=== PATIENT | female | born 1955 | race African-American/Black ===

== ENCOUNTER → 2017-10-20 | Outpatient (CLI) | payer MEDICAID ==
[~2017-10-20] MED LIST: AMLO10TA82 PO; B/P med; DIAZ10TA3 PO; FAMO20TA5 PO; FLUT1DIS26 IH; HCT25T PO; HYDR-3583 PO; METO-272 PO; METO100T2 PO; QTP100T PO; SERT100T PO; TOLTA4 PO
--- NOTE | 2017-10-23 11:38 | Diagnostic Imaging Report ---
Bilateral screening mammogram 2D views with tomosynthesis. The current study was also evaluated with a Computer Aided Detection (CAD) system. INDICATION: Screening. No current complaints stated on the questionnaire. COMPARISON: 01/12/2012. FINDINGS: The breasts are composed of scattered fibroglandular densities. Scattered benign-appearing calcifications are seen. Allowing for technique and positional differences, no suspicious change is seen. IMPRESSION: No significant change. ACR BI-RADS Category 2: Benign findings. Result letter will be mailed to the patient. Note: At least 10% of breast cancer is not imaged by mammography. Dictated by: Dictated on workstation # [id number]
== END ==
LOC: RAD 10:58
PROVIDERS: ATTEND Nurse Practitioner Family
DX: Z12.31 Encounter for screening mammogram for malignant neoplasm of breast (principal)
CPT/HCPCS: 77067

== ENCOUNTER 2018-12-06 05:34 | Outpatient (CLI) | payer MEDICAID ==
[~2018-12-06] VITALS: Ht 167.6 cm; Wt 120.2 kg
[2018-12-06] MEDS ORDERED: SOLI10TA2 PO (10:11)
[2018-12-06] MEDS ORDERED: DIAZ10TA3 PO (10:11)
[2018-12-06] MEDS ORDERED: FLUT1DIS26 IH (10:11)
[2018-12-06] MEDS ORDERED: AMLO10TA7 PO (10:11)
[2018-12-06] MEDS ORDERED: PANT40TA3 PO (10:11)
[2018-12-06] MEDS ORDERED: PROP20TA5 PO (10:11)
[2018-12-06] MEDS ORDERED: SERT100T8 PO (10:11)
== END 2018-12-06 10:15 | disposition home or self-care (01) ==
LOC: PREOP 05:34
PROVIDERS: ATTEND Obstetrics & Gynecology
DX: Z01.818 Encounter for other preprocedural examination (principal)

== ENCOUNTER 2018-12-11 10:06 | Day surgery (SDC) | payer MEDICAID ==
[~2018-12-11] VITALS: Ht 167.6 cm; Wt 118.0 kg
[~2018-12-11 10:06] MED LIST changes: +AMLO10TA7 PO; +PANT40TA3 PO; +PROP20TA5 PO; +SERT100T8 PO; +SOLI10TA2 PO
--- OUTSIDE RECORDS SUMMARY | 2018-12-11 10:10 | XMS REPORT ---
Author Author ALMA ROSA JESSICA [facility] Address [address] [place] [address] Care Team Providers Care Vegetable Buncher Name Role Phone ALMA ROSA JESSICA Unavailable PROBLEMS Type Condition ICD9-CM Code [id number] Code Onset Dates Condition Status SNOMED Code Problem Post-menopausal bleeding N95.0 Active 79886082 Problem Stress incontinence of urine N39.3 Active 06806494 Problem Unspecified personality disorder F60.9 Active 70424378 Problem Anxiety disorder, unspecified F41.9 Active 597133446 Problem Anxiety F41.9 Active 45292363 Problem Unspecified episodic mood disorder F39 Active 972840498 ALLERGIES No Known Allergies ENCOUNTERS Encounter Location Date Diagnosis [place] [address] [id number] [place] [address] 72701- 2061 Nov, [place] [address] 40489- 9314 Oct, Encounter for immunization Z23 [place] [id number] [place] [address] 66824- 8728 Oct, Anxiety F41.9 [place] [id number] [place] [address] 93667- 0908 12 Oct, 2018 Post-menopausal bleeding N95.0 [facility] [id number] [place] [address] 20287- 5555 20 Sep, 2018 Unspecified episodic mood disorder F39 ; Anxiety disorder, unspecified F41.9 and Unspecified personality disorder F60.9 [place] [address] [id number] [place] [address] 82177- 9616 14 Sep, 2018 Anxiety F41.9 [place] [address] [id number] [place] [address] 99662- 3822 Aug, Anxiety F41.9 [facility] [address] [address] 9[address] Aug, Unspecified episodic mood disorder F39 ; Anxiety disorder, unspecified F41.9 and Unspecified personality disorder F60.9 [facility] [id number] [place] [address] 67821- 3327 Jul, Anxiety F41.9 [facility] [id number] [place] [address] 02779- 1792 Jun, Unspecified episodic mood disorder F39 ; Anxiety disorder, unspecified F41.9 and Unspecified personality disorder F60.9 [facility] [id number] [place] [address] 00751- 3968 Jun, Anxiety disorder, unspecified F41.9 [facility] [id number] [place] [address] 89803- 0779 May, Unspecified episodic mood disorder F39 ; Anxiety disorder, unspecified F41.9 and Unspecified personality disorder F60.9 [facility] [id number] [place] [address] 27763- 6923 May, Anxiety disorder, unspecified F41.9 [facility] [id number] [place] [address] 26090- 7406 Apr, Anxiety disorder, unspecified F41.9 [facility] [id number] [place] [address] 07861- 3283 Apr, Unspecified episodic mood disorder F39 ; Anxiety disorder, unspecified F41.9 and Unspecified personality disorder F60.9 [facility] [id number] [place] [address] 24650- 9320 March, Anxiety disorder, unspecified F41.9 [facility] [address] [place] [address] 62258- 3187 March, Unspecified episodic mood disorder F39 ; Anxiety disorder, unspecified F41.9 and Unspecified personality disorder F60.9 [facility] [address], [place] [address] 8440 March, Anxiety disorder, unspecified F41.9 [facility] [id number] [place] [address] 23907- 9344 Feb, Unspecified episodic mood disorder F39 ; Anxiety disorder, unspecified F41.9 and Unspecified personality disorder F60.9 [facility] [id number] [place] [address] 71915- 9035 Feb, Unspecified episodic mood disorder F39 ; Anxiety disorder, unspecified F41.9 and Unspecified personality disorder F60.9 [facility] [id number] [place] [address] 95738- 6541 Feb, Anxiety disorder, unspecified F41.9 [facility] [id number] [place] [address] 55519- 2026 Jan, Unspecified episodic mood disorder F39 ; Anxiety disorder, unspecified F41.9 and Unspecified personality disorder F60.9 [facility] [id number] [place] [address] 00663- 3263 Jan, Anxiety F41.9 [facility] [id number] [place] [address] 18524- 8147 Jan, Anxiety disorder, unspecified F41.9 [facility] [id number] [place] [address] 33729- 0070 Dec, Unspecified episodic mood disorder F39 ; Anxiety disorder, unspecified F41.9 and Unspecified personality disorder F60.9 [facility] [id number] [place] [address] 10721- 0424 Dec, Anxiety F41.9 [facility] [address] [place] [address] 76939- 0943 Dec, Anxiety disorder, unspecified F41.9 [facility] [address] [place] [address] 46824- 3496 Dec, Unspecified episodic mood disorder F39 ; Anxiety disorder, unspecified F41.9 and Unspecified personality disorder F60.9 [facility] [address] [address]- 8391 Nov, [facility] [id number] [place] [address] 48321- 7981 Nov, [facility] [id number] [place] [address] 46873- 5509 Nov, Unspecified episodic mood disorder F39 ; Anxiety disorder, unspecified F41.9 and Unspecified personality disorder F60.9 [place] [id number] [place] [address] 30762- 0874 Nov, Anxiety disorder, unspecified F41.9 [place] [address] [place] [address] 56530- 4782 Oct, Unspecified episodic mood disorder F39 ; Anxiety disorder, unspecified F41.9 and Unspecified personality disorder F60.9 [place] [address] [place] [address] 03315- 4514 Oct, Vaginal yeast infection B37.3 [place] [address] [place] [address] 45629- 8550 Oct, [place] [address] [place] [address] 69567- 2226 Oct, Anxiety disorder, unspecified F41.9 [facility] [address] [place] [address] 77888- 9073 Oct, Routine gynecological examination Z01.419 ; Screening for breast cancer Z12.31 and Vaginal yeast infection B37.3 [facility] [address] [place] [address] 03161- 5004 Sep, Unspecified episodic mood disorder F39 ; Anxiety disorder, unspecified F41.9 and Unspecified personality disorder F60.9 [place] [address] [place] [address] 63328- 5062 Sep, [place] [address] [place] [address] 02206- 7646 Sep, Anxiety disorder, unspecified F41.9 [place] [id number] [place] [address] 72559- 1327 Sep, Bronchitis J40 and Stress incontinence of urine N39.3 [place] [id number] [place] [address] 20490- 2769 Sep, Stress incontinence of urine N39.3 ; Bronchitis J40 and Anxiety F41.9 [place] [id number] [place] [address] 54897- 8546 Sep, [place] [id number] [place] [address] 81035- 6802 Sep, Unspecified episodic mood disorder F39 ; Anxiety disorder, unspecified F41.9 and Unspecified personality disorder F60.9 [place] [id number] [place] [address] 45685- 1751 Aug, Anxiety F41.9 ; Stress incontinence of urine N39.3 and Encounter for immunization Z23 [place] [id number] [place] [address] 08795- 4717 Aug, Anxiety disorder, unspecified F41.9 [place] [id number] [place] [address] 53067- 3221 Jul, Unspecified episodic mood disorder F39 ; Anxiety disorder, unspecified F41.9 and Unspecified personality disorder F60.9 [place] [id number] [place] [address] 27058- 2290 Jul, [place] [id number] [place] [address] 03066- 4488 Jul, Unspecified episodic mood disorder F39 ; Anxiety disorder, unspecified F41.9 and Unspecified personality disorder F60.9 [place] [id number] [place] [address] 52335- 6167 Jul, Anxiety disorder, unspecified F41.9 [facility] [address] [place] [address] 33392- 0335 Jun, Unspecified episodic mood disorder F39 ; Anxiety disorder, unspecified F41.9 and Unspecified personality disorder F60.9 [facility] [address] [place] [address] 48807- 4981 Jun, Anxiety disorder, unspecified F41.9 [facility] [id number] [place] [address] 59867- 5655 Jun, Unspecified episodic mood disorder F39 ; Anxiety disorder, unspecified F41.9 and Unspecified personality disorder F60.9 [facility] [id number] [place] [address] 62653- 1273 Jun, [place] [id number] [place] [address] 79822- 1699 May, Anxiety disorder, unspecified F41.9 [facility] [id number] [place] [address] 92530- 0565 May, Unspecified episodic mood disorder F39 ; Anxiety disorder, unspecified F41.9 and Unspecified personality disorder F60.9 [facility] [address] [place] [address] 79453- 3452 Apr, Anxiety disorder, unspecified F41.9 [facility] [address] [place] [address] 02857- 3982 March, Unspecified episodic mood disorder F39 ; Anxiety disorder, unspecified F41.9 and Unspecified personality disorder F60.9 [facility] [id number] [place] [address] 43131- 3368 March, Bronchitis J40 [facility] [address] [place] [address] 91179- 2623 March, Unspecified episodic mood disorder F39 ; Anxiety disorder, unspecified F41.9 and Unspecified personality disorder F60.9 [facility] [address], [place] [address]- 6447 Feb, [facility] [address] [place] [address] 06475- 0494 Feb, Unspecified episodic mood disorder F39 ; Anxiety disorder, unspecified F41.9 and Unspecified personality disorder F60.9 [facility] [address] [place] [address] 74389- 9890 Feb, Bronchitis J40 [facility] [address] [place] [address] 83062- 5801 Feb, Unspecified episodic mood disorder F39 ; Anxiety disorder, unspecified F41.9 and Unspecified personality disorder F60.9 [facility] [address], [place] [address]- 4869 Jan, Unspecified episodic mood disorder F39 ; Anxiety disorder, unspecified F41.9 and Unspecified personality disorder F60.9 [facility] [address] [address]- 3054 Jan, Bronchitis J40 [facility] [address] [place] [address] 17623- 3717 Jan, Unspecified episodic mood disorder F39 ; Anxiety disorder, unspecified F41.9 and Unspecified personality disorder F60.9 [facility] [address] [address]- 9390 Dec, Anxiety F41.9 [facility] [id number] [address]- 8222 Dec, Unspecified episodic mood disorder F39 ; Anxiety disorder, unspecified F41.9 and Unspecified personality disorder F60.9 [place] [address] [id number] [id number] Dec, [facility] [id number] [address]- 9854 Dec, Unspecified episodic mood disorder F39 ; Anxiety disorder, unspecified F41.9 and Unspecified personality disorder F60.9 [facility] [address], [place] [address]- 6664 Nov, [facility] [id number] [place] [address] 26864- 8912 Oct, Unspecified episodic mood disorder F39 ; Anxiety disorder, unspecified F41.9 and Unspecified personality disorder F60.9 [facility] [id number] [place] [address] 99344- 6160 Oct, [facility] [address] [place] [address] 36232 -8644 Oct, Acute upper respiratory infection, unspecified J06.9 ; Other viral agents as the cause of diseases classified elsewhere B97.89 and Cough R05 [place] [id number] [place] [address] 16034- 8064 Aug, Unspecified episodic mood disorder F39 ; Anxiety disorder, unspecified F41.9 and Unspecified personality disorder F60.9 [facility] [id number] [place] [address] 99081- 0831 Aug, [facility] [id number] [place] [address] 63650- 2979 Aug, [place] [id number] [place] [address] 22769- 5070 Aug, [facility] [id number] [place] [address] 39731- 5060 Aug, Visit for TB skin test Z11.1 [facility] [id number] [place] [address] 66300- 8901 Jul, [facility] [id number] [place] [address] 11146- 4367 Jul, [place] [id number] [place] [address] 50048- 4821 Jul, [place] [address], [place] [address]- 2704 Jul, [facility] [address], [place] [address]- 0658 Jul, [facility] [address], [place] [address]- 3395 Jul, Unspecified episodic mood disorder F39 ; Anxiety disorder, unspecified F41.9 and Unspecified personality disorder F60.9 [facility] [address], [place] [address]- 8775 Jun, [facility] [address] [place] [address] 39194- 6834 Jun, Unspecified episodic mood disorder F39 ; Anxiety disorder, unspecified F41.9 and Unspecified personality disorder F60.9 [facility] [address], [place] [address]- 6394 Jun, [facility] [address], [place] [address]- 8326 May, Unspecified episodic mood disorder F39 ; Anxiety disorder, unspecified F41.9 and Unspecified personality disorder F60.9 [facility] [address], [place] [address]- 7367 May, [facility] [address], [place] [address]- 6704 May, [facility] [address], [place] [address]- 3502 May, Edema, unspecified R60.9 [facility] [address], [place] [address]- 5611 Apr, [facility] [address], [place] [address]- 6360 Apr, Unspecified episodic mood disorder F39 ; Anxiety disorder, unspecified F41.9 and Unspecified personality disorder F60.9 [facility] [id number] [place] [address] 89121- 2489 Apr, Anxiety F41.9 [facility] [id number] [place] [address] 30047- 7082 March, Unspecified episodic mood disorder F39 ; Anxiety disorder, unspecified F41.9 and Unspecified personality disorder F60.9 [facility] [id number] [place] [address] 92977- 6983 March, Unspecified episodic mood disorder F39 ; Anxiety disorder, unspecified F41.9 and Unspecified personality disorder F60.9 [facility] [id number] [place] [address] 88701- 9708 Feb, Anxiety F41.9 [facility] [id number] [place] [address] 15330- 5821 Feb, Unspecified episodic mood disorder F39 ; Anxiety disorder, unspecified F41.9 and Unspecified personality disorder F60.9 [facility] [id number] [place] [address] 55782- 7294 Jan, Unspecified episodic mood disorder F39 ; Anxiety disorder, unspecified F41.9 and Unspecified personality disorder F60.9 [facility] [address] [place] [address] 76939- 4500 Jan, Unspecified episodic mood disorder F39 ; Anxiety disorder, unspecified F41.9 and Unspecified personality disorder F60.9 [facility] [address] [place] [address] 36134- 8493 Jan, Edema, unspecified R60.9 [facility] [address] [place] [address] 93053- 4135 Dec, [facility] [address] [place] [address] 53351- 4240 Dec, [facility] [address] [place] [address] 40916- 7959 Dec, [facility] [address], [place] [address]- 6891 Dec, Unspecified episodic mood disorder F39 ; Anxiety disorder, unspecified F41.9 and Unspecified personality disorder F60.9 [facility] [address] [place] [address] 18462- 1136 Nov, [facility] [id number] [place] [address] 03043- 5673 Nov, Unspecified episodic mood disorder F39 ; Anxiety disorder, unspecified F41.9 and Unspecified personality disorder F60.9 [place] [id number] [place] [address] 18994- 4724 Oct, Unspecified episodic mood disorder F39 ; Anxiety disorder, unspecified F41.9 and Unspecified personality disorder F60.9 [place] [id number] [place] [address] 98899- 7312 Oct, Unspecified episodic mood disorder F39 ; Anxiety disorder, unspecified F41.9 and Unspecified personality disorder F60.9 [place] [id number] [place] [address] 70626- 9083 Sep, Unspecified episodic mood disorder F39 ; Anxiety disorder, unspecified F41.9 and Unspecified personality disorder F60.9 [place] [id number] [place] [address] 65097- 3564 Sep, Encounter for immunization Z23 [facility] [id number] [place] [address] 06806- 3149 10 Sep, 2015 Edema of left lower extremity R60.0 [place] [id number] [place] [address] 79198- 8398 Aug, Unspecified episodic mood disorder F39 ; Anxiety disorder, unspecified F41.9 and Unspecified personality disorder F60.9 [facility] [id number] [place] [address] 50478- 8548 Aug, [facility] [address] [place] [address]- 8646 Aug, Edema of left lower extremity R60.0 [facility] [id number] [place] [address] 43602- 5454 Aug, [facility] [id number] [place] [address] 32751- 5683 Aug, Unspecified episodic mood disorder F39 ; Anxiety disorder, unspecified F41.9 and Unspecified personality disorder F60.9 [facility] [id number] [place] [address] 12409- 8528 Jul, Unspecified episodic mood disorder 296.90 ; Anxiety disorder , unspecified 300.00 and Unspecified personality disorder 301.9 [facility] [id number] [place] [address] 40544- 1691 Jul, Unspecified episodic mood disorder 296.90 ; Anxiety disorder , unspecified 300.00 and Unspecified personality disorder 301.9 [facility] [id number] [place] [address] 44039- 1984 Jul, [facility] [id number] [place] [address] 59614- 6256 Jun, Unspecified episodic mood disorder 296.90 ; Anxiety disorder , unspecified 300.00 and Unspecified personality disorder 301.9 [facility] [address] [place] [address] 96736- 4574 May, Unspecified episodic mood disorder 296.90 ; Anxiety disorder , unspecified 300.00 and Unspecified personality disorder 301.9 [facility] [address] [address]- 5288 May, Anxiety disorder, unspecified 300.00 [facility] [id number] [place] [address] 66532- 0478 May, Anxiety disorder, unspecified 300.00 and Edema 782.3 [facility] [id number] [place] [address] 40713- 6105 May, Unspecified episodic mood disorder 296.90 ; Anxiety disorder , unspecified 300.00 and Unspecified personality disorder 301.9 [facility] [address] [address]- 0867 Apr, [facility] [address] [place] [address]- 2354 Apr, Unspecified episodic mood disorder 296.90 ; Anxiety disorder , unspecified 300.00 and Personality disorder, unspecified 301.9 [facility] [address] [place] [address] 99112- 9081 Apr, Unspecified episodic mood disorder 296.90 ; Anxiety disorder , unspecified 300.00 and Unspecified personality disorder 301.9 [facility] [address] [place] [address] 07958- 2564 March, [facility] [id number] [place] [address] 63739- 2839 March, Unspecified episodic mood disorder 296.90 ; Anxiety disorder , unspecified 300.00 and Unspecified personality disorder 301.9 [facility] [address] [place] [address]- 3718 March, Unspecified episodic mood disorder 296.90 ; Anxiety disorder 300.00 and Unspecified personality disorder 301.9 [facility] [address] [place] [address]- 6884 March, [facility] [address] [address]- 7505 March, [facility] [address], [place] [address]- 9173 Feb, [facility] [id number] [place] [address] 30438- 7022 Feb, [facility] [address], [place] [address]- 6776 Feb, [facility] [address] [place] [address] 93768- 7554 Jan, [facility] [place] [facility] [address] [id number] [place] [address]- 4657 Jan, [facility] [place] [facility] [address] [id number] [place] [address]- 5178 Jan, [facility] [place] [facility] [address] [id number] [place] [address]- 2695 Jan, [facility] [place] [facility] [address] [id number] [place] [address]- 2739 Jan, [facility] [place] [facility] [address] [id number] [place] [address]- 1230 Jan, [facility] [place] [facility] [address] [id number] [place] [id number] Jan, [facility] [place] [facility] [address] [facility] [id number] [place] [address] Jan, [facility] [place] [facility] [address] [id number] [place] [address] Jan, [facility] [place] [facility] [address] [facility] [id number] [place] [address] Jan, [facility] [place] [facility] [address] [id number] [place] [address] Jan, [facility] [place] [facility] [address] [facility] [id number] [place] [address] Jan, [facility] [place] [facility] [address] [id number] [place] [address] Jan, 2014 [facility] [place] [facility] [address] [id number] [place] [address] Jan, [facility] [place] [facility] [address] [id number] [place] [address] Jan, 2014 [facility] [place] [facility] [address] [facility] [id number] [place] [address] Jan, [facility] [place] [facility] [address] [id number] [place] [address] Dec, 2014 [facility] [address] [id number] [place] [address] Dec, 2014 [facility] [place] [facility] [address] [id number] [place] [address] Dec, 2014 [facility] [place] [facility] [address] [facility] [id number] [place] [address] Dec, [facility] [place] [facility] [address] [id number] [place] [address]- 9341 Nov, [facility] [address] [id number] [place] [address]14 Nov, [facility] [address] [id number] [place] [address] 9979 Nov, [facility] [address] [facility] [id number], [place] [address]22 Nov, [facility] [address] [id number] [place] [address] 2200 Oct, [facility] [address] [id number] [place] [address]- 2515 Oct, [facility] [place] [facility] [address] [facility] [id number] [place] [address]- 0355 Oct, [facility] [address] [id number] [place] [address]- 2644 Oct, [facility] [place] [facility] [address] [id number], [place] [address] Oct, [facility] [place] [facility] [address] [id number] [place] [address]- 8556 Oct, [facility] [place] [facility] [address] [id number] [place] [address]- 6581 Oct, [facility] [place] [facility] [address] [facility] [id number] [place] [address]- 2856 Oct, [facility] [place] [facility] [address] [id number] [place] [address]- 4692 Oct, [facility] [place] [facility] [address] [id number] [place] [address]- 3087 Oct, [facility] [place] [facility] [address] [id number] [place] [address]- 4886 Oct, [facility] [place] [facility] [address] [id number] [place] [address]- 5555 Oct, [facility] [place] [facility] [address] [id number] [place] [address]- 2853 Oct, [facility] [place] [facility] [address] [id number] [place] [address]- 8494 Oct, [facility] [place] [facility] [address] [id number] [place] [address]- 9728 Oct, [facility] [place] [facility] [address] [id number] [place] [address]- 9986 Oct, [facility] [place] [facility] [address] [id number] [place] [address]- 8301 Sep, [facility] [place] [facility] [address] [id number] [place] [address]- 4848 Sep, [facility] [place] [facility] [address] [id number] [place] [address]- 2578 Sep, [facility] [place] [facility] [address] [id number] [place] [address]- 7739 Sep, [facility] [place] [facility] [address] [id number] [place] [address]- 6997 Sep, [facility] [place] [facility] [address] [id number] [place] [address]- 0565 Sep, [facility] [place] [facility] [address] [id number] [place] [address]- 2822 Sep, [facility] [place] [facility] [address] [id number] [place] [address] 1925 Sep, [facility] [place] [facility] [address] [id number] [place] [address]- 0400 Sep, [facility] [place] [facility] [address] [id number] [place] [address]- 5037 Sep, [facility] [place] [facility] [address] [id number] [place] [address]- 4387 Aug, [facility] [place] [facility] [address] [id number] [place] [address]- 7639 30 Aug, 2014 [facility] [place] [facility] [address] [id number] [place] [address]- 2379 Aug, [facility] [place] [facility] [address] [id number] [place] [address]- 4775 Aug, [facility] [place] [facility] [address] [id number] [place] [address]- 6492 Aug, [facility] [place] [facility] [address] [id number] [place] [address]- 2829 Aug, [facility] [place] [facility] [address] [id number] [place] [address]- 1141 Aug, [facility] [place] [facility] [address] [id number] [place] [address]- 1521 Aug, [facility] [place] [facility] [address] [id number], [place] [address]- 6831 29 Jul, 2014 [facility] [place] [facility] [address] [id number], [place] [address]- 5[address] 29 Jul, 2013 [facility] [place] [facility] [address] [id number] [place] [address]- 0546 05 Sep2013 [facility] [place] [facility] [address] [id number], [place] [address]- 4092 05 Jul, 2014 [facility] [place] [facility] [address] [id number], [place] [address]- 4001 05 Jul, 2014 [facility] [place] [facility] [address] [id number] [place] [address]- 8894 Jul, [facility] [place] [facility] [address] [id number] [place] [address]- 2104 Jun, [facility] [place] [facility] [address] [id number] [place] [address]- 3434 Jun, [facility] [place] [facility] [address] [id number] [place] [address]- 8689 May, [facility] [place] [facility] [address] [id number] [place] [address]- 1845 May, [facility] [place] [facility] [address] [id number] [place] May, [facility] [place] [facility] [address] [id number] [place] [address]- 5752 May, [facility] [place] [facility] [address] [id number] [place] [address]- 4958 May, [facility] [place] [facility] [address] [id number] [place] [address]- 7282 May, [facility] [place] [facility] [address] [id number] [place] [address]- 8275 May, [facility] [place] [facility] [address] [id number] [place] [address]- 4166 May, [facility] [place] [facility] [address] [id number] [place] [address]- 5895 Apr, [facility] [place] [facility] [address] [id number] [place] [address]- 0644 Apr, [facility] [place] [facility] [address] [id number] [place] [address]- 2997 March, [facility] [place] [facility] [address] [id number] [place] [address]- 5232 March, [facility] [place] [facility] [address] [id number] [place] [address]- 3265 Feb, [facility] [place] [facility] [address] [id number] [place] [address]- 0403 Feb, [facility] [place] [facility] [address] [id number] [place] [address]- 7885 Feb, [facility] [place] [facility] [address] [id number] [place] [address]- 3913 Feb, [facility] [place] [facility] [address] [id number] [place] [address]- 7638 Feb, [facility] [place] [facility] [address] [id number] [place] [address]- 4316 Feb, [facility] [place] [facility] [address] [id number] [place] [address]- 7532 Feb, [facility] [place] [facility] [address] [id number] [place] [address]- 6088 Feb, [facility] [place] [facility] [address] [id number] [place] [address]- 5421 Feb, [facility] [place] [facility] [address] [id number] [place] [address]- 4054 Feb, [facility] [place] [facility] [address] [id number] [place] [address]- 9644 Jan, [facility] [place] [facility] [address] [id number] [place] [address]- 7907 Jan, [facility] [place] [facility] [address] [id number] [place] [address]- 5340 Jan, [facility] [place] [facility] [address] [id number] [place] [address]- 4308 Jan, [facility] [place] [facility] [address] [id number] [place] [address]- 4565 Jan, [facility] [place] [facility] [address] [id number] [place] [address]- 5260 Dec, [facility] [place] [facility] [address] [id number] [place] [address]- 6327 Dec, [facility] [address] [id number] [place] [address]- 5736 Dec, [facility] [place] [facility] [address] [id number] [place] [address]- 3389 Dec, [facility] [place] [facility] [address] [id number] [place] [address]- 1720 Dec, [facility] [place] [facility] [address] [id number] [place] [address]- 8389 Dec, [facility] [place] [facility] [address] [id number] [place] [address]- 1143 Nov, [facility] [place] [facility] [address] [id number] [place] [address]- 6939 Nov, [facility] [place] [facility] [address] [id number] [place] [address]- 1253 Nov, [facility] [place] [facility] [address] [id number] [place] [address]- 2458 Nov, [facility] [place] [facility] [address] [id number] [place] [address]- 9801 Nov, [facility] [place] [facility] [address] [id number] [place] [address]- 3316 Nov, [facility] [place] [facility] [address] [id number] [place] [address]- 4146 Nov, [facility] [place] [facility] [address] [id number] [place] [address]- 6343 Nov, [facility] [place] [facility] [address] [id number] [place] [address]- 0153 Oct, [facility] [place] [facility] [address] [id number] [place] [address]- 5007 Oct, [facility] [place] [facility] [address] [id number] [place] [address]- 1690 Oct, [facility] [place] [facility] [address] [id number] [place] [address]- 0350 06 Oct, 2013 [facility] [place] [facility] [address] [id number] [place] [address]- 0958 Oct, [facility] [place] [facility] [address] [id number] [place] [address]- 5902 05 Oct, 2013 [facility] [place] [facility] [address] [id number] [place] [address]- 2350 Oct, [facility] [place] [facility] [address] [id number] [place] [address]- 0819 Oct, [facility] [place] [facility] [address] [id number] [place] [address]- 3224 Sep, [facility] [place] [facility] [address] [id number] [place] [address]- 0127 Sep, [facility] [place] [facility] [address] [id number] [place] [address]- 6580 Sep, [facility] [place] [facility] [address] [id number] [place] [address]- 4643 Sep, [facility] [place] [facility] [address] [id number] [place] [address]- 2981 Sep, [facility] [place] [facility] [address] [id number] [place] [address]- 3780 Sep, [facility] [place] [facility] [address] [id number] [place] [address]- 6614 Sep, [facility] [place] [facility] [address] [id number] [place] [address]- 0060 Sep, [facility] [place] [facility] [address] [id number] [place] [address]- 2477 10 Aug, 2013 [facility] [place] [facility] [address] [id number] [place] [address]- 3676 10 Aug, 2013 [facility] [place] [facility] [address] [id number] [place] [address]- 5068 Aug, [facility] [place] [facility] [address] [id number] [place] [address]- 8931 Jul, [facility] [place] [facility] [address] [id number] [place] [address]- 5936 Jun, [facility] [place] [facility] [address] [id number] [place] [address]- 2908 Jun, [facility] [place] [facility] [address] [id number] [place] [address]- 0427 Jun, [facility] [place] [facility] [address] [id number] [place] [address]- 1234 Jun, [facility] [place] [facility] [address] [id number] [place] [address]- 8311 Jun, [facility] [place] [facility] [address] [id number] [place] [address]- 3123 May, [facility] [place] [facility] [address] [id number] [place] [address]- 4859 May, [facility] [place] [facility] [address] [id number] [place] [address]- 9889 Apr, [facility] [place] [facility] [address] [id number] [place] [address]- 0168 Apr, [facility] [place] [facility] [address] [id number] [place] [address]- 0587 March, [facility] [place] [facility] [address] [id number] [place] [address]- 3813 March, [facility] [place] [facility] [address] [id number] [place] [address]- 9798 March, [facility] [place] [facility] [address] [id number] [place] [address]- 1152 March, [facility] [place] [facility] [address] [id number] [place] [address]- 3278 March, [facility] [place] [facility] [address] [id number] [place] [address]- 7775 Feb, [facility] [address] [id number] [place] [address]- 2376 Feb, [facility] [place] [facility] [address] [id number] [place] [address]- 2846 Feb, [facility] [address] [id number] [place] [address]- 5016 Jan, [facility] [address] [id number] [place] [address]- 7422 Dec, [facility] [address] [id number] [place] [address]- 3056 Dec, [facility] [address] [id number] [place] [address]- 0893 Dec, [facility] [address] [id number] [place] [address]- 1086 Dec, [facility] [address] [id number] [place] [address]- 2276 Nov, [facility] [address] [id number] [place] [address]- 5262 Nov, [facility] [address] [id number] [place] [address]- 2919 Nov, [facility] [address] [id number] [place] [address]- 0888 Nov, [facility] [address] [id number] [place] [address]- 7871 Oct, [facility] [place] [facility] [address] [id number] [place] [address]- 5956 Oct, [facility] [place] [facility] [address] [id number] [place] [address]- 2546 Oct, [facility] [address] [id number] [place] [address]- 5707 Oct, [facility] [place] [facility] [address] [id number] [place] [address]- 9015 14 Sep, 2012 [facility] [place] [facility] [address] [id number] [place] [address]- 6166 14 Sep, 2012 [facility] [place] [facility] [address] [id number] [place] [address]- 8401 13 Sep, 2012 [facility] [place] [facility] [address] [id number] [place] [address]- 2283 13 Sep, 2012 [facility] [place] [facility] [address] [id number] [place] [address]- 7492 Sep, [facility] [place] [facility] [address] [id number] [place] [address]- 8563 Sep, [facility] [place] [facility] [address] [id number] [place] [address]- 6301 Aug, [facility] [place] [facility] [address] [id number] [place] [address]- 8525 Aug, [facility] [place] [facility] [address] [id number] [place] [address]- 2825 Aug, [facility] [place] [facility] [address] [id number], [place] [address]- 5234 Jul, [facility] [place] [facility] [address] [id number], [place] [address]- 1618 Jul, [facility] [place] [facility] [address] [id number], [place] [address]- 1268 16 Jun, 2012 [facility] [place] [facility] [address] [id number] [place] [address]- 0652 30 May, 2012 [facility] [place] [facility] [address] [id number], [place] [address]- 4425 May, [facility] [place] [facility] [address] [id number] [place] [address]- 7113 Apr, [facility] [place] [facility] [address] [facility] [id number] [place] [address]- 9080 06 Apr, 2012 [facility] [place] [facility] [address] [id number] [place] [address]- 1693 March, [facility] [place] [facility] [address] [facility] [id number] [place] [address]- 2946 March, [facility] [place] [facility] [address] [facility] [id number] [place] [address]- 9966 Feb, [facility] [place] [facility] [address] [facility] [id number] [place] [address]- 2675 16 Feb, 2012 [facility] [place] [facility] [address] [id number] [place] [address]- 2662 Feb, [facility] [place] [facility] [address] [facility] [id number] [place] [address]- 7546 06 Feb, 2012 [facility] [place] [facility] [id number] [address]- 0228 15 Jan, 2012 [facility] [place] [facility] [address] [facility] [id number] [place] [address]- 8794 Jan, [facility] [place] [facility] [id number] [address]- 6743 29 Dec, 2011 [facility] [place] [facility] [id number] [address]- 7095 28 Dec, 2011 [facility] [place] [facility] [id number] [address]- 3626 26 Dec, 2011 [facility] [place] [facility] [address] [facility] [id number] [place] [address]- 3041 23 Dec, 2011 [facility] [place] [facility] [address] [facility] [id number] [place] [address]- 3258 20 Dec, 2011 [facility] [place] [facility] [address] [facility] [id number] [place] [address]- 7446 15 Dec, 2011 [facility] [place] [facility] [id number] [address]- 7264 Dec, [facility] [address] [id number] [place] [address]- 6561 Dec, [facility] [place] [facility] [address] [id number] [place] [address]- 3616 Dec, [facility] [place] [facility] [address] [id number] [place] [address]- 5736 Dec, [facility] [place] [facility] [address] [id number] [place] [address]- 3180 Dec, [facility] [place] [facility] [address] [id number] [place] [address]- 9564 Dec, [facility] [place] [facility] [address] [id number] [place] [address]- 1474 Dec, [facility] [place] [facility] [address] [id number] [place] [address]- 7527 Nov, [facility] [place] [facility] [address] [id number] [place] [address]- 8860 Nov, [facility] [place] [facility] [address] [id number] [place] [address]- 8969 Nov, [facility] [place] [facility] [address] [id number] [place] [address]- 2919 Nov, [facility] [place] [facility] [address] [id number] [place] [address]- 6880 Nov, [facility] [place] [facility] [address] [id number] [place] [address]- 1613 Nov, [facility] [place] [facility] [address] [id number] [place] [address]- 8426 Oct, [facility] [place] [facility] [address] [id number] [place] [address]- 6576 Oct, [facility] [place] [facility] [address] [facility] [id number] [place] [address] Sep, [facility] [place] [facility] [address] [id number] [place] [address] 29 Sep, 2011 [facility] [address] [id number] [place] [address] Sep, [facility] [address] [id number] [place] [address] Sep, [facility] [address] [facility] [id number] [place] [address] Sep, [facility] [address] [id number] [place] [address] March, [facility] [address] [facility] [id number] [place] [address], [place] [address] Oct, [facility] [address] [facility] [id number] [place] [address] Oct, [facility] [address] [id number] [address] Oct, [facility] [address] [facility] [id number] [place] [address] 24 Sep, 2010 [facility] [id number] [address] Sep, [facility] [address] [facility] [id number] [place] [address] 17 Sep, 2010 [facility] [address] [facility] [id number] [place] [address] 16 Sep, 2010 [facility] [address] [facility] [id number] [place] [address] Aug, [facility] [address] [facility] [id number] [place] [address] Oct, [facility] [address] [facility] [id number] [place] [address] Oct, [facility] [address] [facility] [id number] [address] 16 May, 2009 IMMUNIZATIONS No Known Immunizations SOCIAL HISTORY Never Assessed REASON FOR VISIT pt states she has been on her period nonstop for 2 months and is very heavy at times- ASHLEE Waldron PLAN OF CARE Activity Details Follow Up prn Reason: VITAL SIGNS Height 68 in 2018-10-17 Weight 261.5 lbs 2018-10-17 Temperature 97.7 degrees Fahrenheit 2018-10-17 Heart Rate 78 bpm 2018-10-17 Respiratory Rate 18 2018-10-17 BMI 39.76 kg/m2 2018-10-17 Blood pressure systolic 132 mmHg 2018-10-17 Blood pressure diastolic 78 mmHg 2018-10-17 MEDICATIONS Medication Instructions Dosage Frequency Start Date End Date Duration Status Propranolol HCl 20 MG TAKE ONE TABLET BY MOUTH TWICE DAILY 90 Active VESIcare 10 mg Orally Once a day 1 tablet 24h 90 Active Amlodipine Besylate 10 mg TAKE ONE TABLET BY MOUTH DAILY 90 Active Valium 10 MG Orally Twice a day 1 tablet 12h 30 Jan, 2015 28 days Active Sertraline HCl 100 MG TAKE TWO TABLETS BY MOUTH ONCE DAILY 90 Active Triamcinolone Acetonide 0.1 % Externally Twice a day 1 application to affected area 12h Sep, Active Advair Diskus 250-50 MCG/DOSE INHALE ONE PUFF BY MOUTH TWICE DAILY 30 Active Pantoprazole Sodium 40 MG TAKE ONE TABLET BY MOUTH ONCE DAILY 90 Active Diflucan 150 MG 1 tablet Oct, 1 dose Active Medical Compression Stockings N/A as directed Aug, Active RESULTS Name Result Date Reference Range Ultrasound : PELVIC COMPLETE (IN-HOUSE) 2018-10-17 PROCEDURES Procedure Date Ordered Result Body Site US EXAM, PELVIC, COMPLETE Oct 17, 2018 INSTRUCTIONS MEDICATIONS ADMINISTERED No Known Medications MEDICAL (GENERAL) HISTORY Type Description Date Medical History hypertension Medical History panic attacks Surgical History cholecystectomy 2009 Hospitalization History surgery
--- OUTSIDE RECORDS SUMMARY | 2018-12-11 10:11 | XMS REPORT ---
Author Author LEIDA ANDINO Organization [facility] Address [address] [place] [address] Care Team Providers Care Lining Marker Name Role Phone LEIDA ANDINO Unavailable PROBLEMS Type Condition ICD9-CM Code [id number] Code Onset Dates Condition Status SNOMED Code Problem Post-menopausal bleeding N95.0 Active 51409713 Problem Stress incontinence of urine N39.3 Active 14074982 Problem Unspecified personality disorder F60.9 Active 35605629 Problem Anxiety disorder, unspecified F41.9 Active 399807309 Problem Anxiety F41.9 Active 46039202 Problem Unspecified episodic mood disorder F39 Active [id number] ALLERGIES No Information ENCOUNTERS Encounter Location Date Diagnosis [place] [id number] [place] [address] 22752- 0405 Nov, [place] [id number] [place] [address] 40169- 6327 Oct, Encounter for immunization Z23 [place] [id number] [place] [address] 27838- 5723 Oct, Anxiety F41.9 [place] [id number] [place] [address] 05865- 4903 Oct, Post-menopausal bleeding N95.0 [place] [id number] [place] [address] 37982- 3977 Sep, Unspecified episodic mood disorder F39 ; Anxiety disorder, unspecified F41.9 and Unspecified personality disorder F60.9 [place] [id number] [place] [address] 39958- 0692 14 Sep, 2018 Anxiety F41.9 [place] [id number] [place] [address] 38987- 0540 Aug, [address]41.[address] [facility] [address] [address] 2261 Aug, Unspecified episodic mood disorder F39 ; Anxiety disorder, unspecified F41.9 and Unspecified personality disorder F60.9 [facility] [address], [place] [address] 1846 Jul, Anxiety F41.9 [facility] [id number] [place] [address] 63667- 2701 Jun, Unspecified episodic mood disorder F39 ; Anxiety disorder, unspecified F41.9 and Unspecified personality disorder F60.9 [facility] [id number] [place] [address] 09050- 9266 Jun, Anxiety disorder, unspecified F41.9 [facility] [id number] [place] [address] 33547- 3436 May, Unspecified episodic mood disorder F39 ; Anxiety disorder, unspecified F41.9 and Unspecified personality disorder F60.9 [facility] [id number] [place] [address] 15684- 6672 May, Anxiety disorder, unspecified F41.9 [facility] [id number] [place] [address] 95434- 4508 Apr, Anxiety disorder, unspecified F41.9 [facility] [id number] [place] [address] 35135- 5314 Apr, Unspecified episodic mood disorder F39 ; Anxiety disorder, unspecified F41.9 and Unspecified personality disorder F60.9 [facility] [id number] [place] [address] 71922- 1647 March, Anxiety disorder, unspecified F41.9 [facility] [address] [address] 1709 March, Unspecified episodic mood disorder F39 ; Anxiety disorder, unspecified F41.9 and Unspecified personality disorder F60.9 [facility] [address], [place] [address]- 4787 March, Anxiety disorder, unspecified F41.9 [facility] [id number] [place] [address] 08973- 3353 Feb, Unspecified episodic mood disorder F39 ; Anxiety disorder, unspecified F41.9 and Unspecified personality disorder F60.9 [facility] [id number] [place] [address] 83391- 2798 Feb, Unspecified episodic mood disorder F39 ; Anxiety disorder, unspecified F41.9 and Unspecified personality disorder F60.9 [facility] [id number] [place] [address] 81727- 2113 Feb, Anxiety disorder, unspecified F41.9 [facility] [id number] [place] [address] 05434- 9901 Jan, Unspecified episodic mood disorder F39 ; Anxiety disorder, unspecified F41.9 and Unspecified personality disorder F60.9 [facility] [id number] [place] [address] 72221- 7336 Jan, Anxiety F41.9 [facility] [id number] [place] [address] 37605- 0453 Jan, Anxiety disorder, unspecified F41.9 [facility] [id number] [place] [address] 17186- 6082 Dec, Unspecified episodic mood disorder F39 ; Anxiety disorder, unspecified F41.9 and Unspecified personality disorder F60.9 [facility] [id number] [place] [address] 13264- 9011 Dec, Anxiety F41.9 [facility] [id number] [place] [address] 73062- 3214 Dec, Anxiety disorder, unspecified F41.9 [facility] [address] [place] [address] 86110- 6479 Dec, Unspecified episodic mood disorder F39 ; Anxiety disorder, unspecified F41.9 and Unspecified personality disorder F60.9 [facility] [address] [place] [address] 94438- 3387 Nov, [facility] [id number] [place] [address] 16858- 6882 Nov, [facility] [id number] [place] [address] 31356- 8556 Nov, Unspecified episodic mood disorder F39 ; Anxiety disorder, unspecified F41.9 and Unspecified personality disorder F60.9 [facility] [id number] [place] [address] 93198- 5555 Nov, Anxiety disorder, unspecified F41.9 [place] [id number] [place] [address] 42864- 2922 Oct, Unspecified episodic mood disorder F39 ; Anxiety disorder, unspecified F41.9 and Unspecified personality disorder F60.9 [facility] [id number] [place] [address] 54342- 1506 Oct, Vaginal yeast infection B37.3 [facility] [id number] [place] [address] 21755- 6411 Oct, [place] [id number] [place] [address] 62375- 4891 Oct, Anxiety disorder, unspecified F41.9 [facility] [address] [place] [address] 81589- 3259 Oct, Routine gynecological examination Z01.419 ; Screening for breast cancer Z12.31 and Vaginal yeast infection B37.3 [facility] [id number] [place] [address] 95613- 3977 Sep, Unspecified episodic mood disorder F39 ; Anxiety disorder, unspecified F41.9 and Unspecified personality disorder F60.9 [place] [id number] [place] [address] 58690- 9146 Sep, [place] [id number] [place] [address] 78664- 8241 Sep, Anxiety disorder, unspecified F41.9 [place] [id number] [place] [address] 64157- 5716 Sep, Bronchitis J40 and Stress incontinence of urine N39.3 [place] [address] 44720- 5002 Sep, Stress incontinence of urine N39.3 ; Bronchitis J40 and Anxiety F41.9 [facility] [id number] [place] [address] 46306- 0673 Sep, [place] [id number] [place] [address] 44568- 2993 Sep, Unspecified episodic mood disorder F39 ; Anxiety disorder, unspecified F41.9 and Unspecified personality disorder F60.9 [place] [id number] [place] [address] 82309- 9112 Aug, Anxiety F41.9 ; Stress incontinence of urine N39.3 and Encounter for immunization Z23 [facility] [id number] [place] [address] 00817- 9382 Aug, Anxiety disorder, unspecified F41.9 [place] [id number] [place] [address] 14208- 3930 Jul, Unspecified episodic mood disorder F39 ; Anxiety disorder, unspecified F41.9 and Unspecified personality disorder F60.9 [place] [id number] [place] [address] 92138- 5894 Jul, [place] [id number] [place] [address] 01071- 0399 Jul, Unspecified episodic mood disorder F39 ; Anxiety disorder, unspecified F41.9 and Unspecified personality disorder F60.9 [place] [id number] [place] [address] 76484- 0254 Jul, Anxiety disorder, unspecified F41.9 [facility] [address], [place] [address]- 1311 Jun, Unspecified episodic mood disorder F39 ; Anxiety disorder, unspecified F41.9 and Unspecified personality disorder F60.9 [facility] [address], [place] [address]- 5887 Jun, Anxiety disorder, unspecified F41.9 [facility] [id number] [place] [address] 15930- 1529 Jun, Unspecified episodic mood disorder F39 ; Anxiety disorder, unspecified F41.9 and Unspecified personality disorder F60.9 [facility] [id number] [place] [address] 92503- 4468 Jun, [facility] [id number] [place] [address] 50880- 1200 May, Anxiety disorder, unspecified F41.9 [facility] [id number] [place] [address] 31227- 4308 May, Unspecified episodic mood disorder F39 ; Anxiety disorder, unspecified F41.9 and Unspecified personality disorder F60.9 [facility] [id number] [place] [address] 62157- 9225 Apr, Anxiety disorder, unspecified F41.9 [facility] [address] [place] [address]- 1874 March, Unspecified episodic mood disorder F39 ; Anxiety disorder, unspecified F41.9 and Unspecified personality disorder F60.9 [facility] [id number] [place] [address] 34636- 2874 March, Bronchitis J40 [facility] [id number] [place] [address] 57635- 9593 March, Unspecified episodic mood disorder F39 ; Anxiety disorder, unspecified F41.9 and Unspecified personality disorder F60.9 [facility] [address], [place] [address]- 1709 Feb, [facility] [address] [address]- 3559 Feb, Unspecified episodic mood disorder F39 ; Anxiety disorder, unspecified F41.9 and Unspecified personality disorder F60.9 [facility] [address] [address]- 9028 Feb, Bronchitis J40 [facility] [id number] [place] [address] 45996- 4260 Feb, Unspecified episodic mood disorder F39 ; Anxiety disorder, unspecified F41.9 and Unspecified personality disorder F60.9 [facility] [address] [address]- 3530 Jan, Unspecified episodic mood disorder F39 ; Anxiety disorder, unspecified F41.9 and Unspecified personality disorder F60.9 [facility] [address], [place] [address]- 7335 Jan, Bronchitis J40 [facility] [id number] [place] [address] 15073- 1849 Jan, Unspecified episodic mood disorder F39 ; Anxiety disorder, unspecified F41.9 and Unspecified personality disorder F60.9 [facility] [address], [place] [address]- 2539 Dec, Anxiety F41.9 [facility] [address], [place] [address]- 2389 Dec, Unspecified episodic mood disorder F39 ; Anxiety disorder, unspecified F41.9 and Unspecified personality disorder F60.9 [place] [address] [id number] [id number] Dec, [facility] [id number] [address]- 7512 Dec, Unspecified episodic mood disorder F39 ; Anxiety disorder, unspecified F41.9 and Unspecified personality disorder F60.9 [facility] [address], [place] [address]- 0582 Nov, [facility] [id number] [place] [address] 96902- 6100 Oct, Unspecified episodic mood disorder F39 ; Anxiety disorder, unspecified F41.9 and Unspecified personality disorder F60.9 [facility] [id number] [place] [address] 95643- 0984 Oct, [facility] [address], [place] [address] -3311 Oct, Acute upper respiratory infection, unspecified J06.9 ; Other viral agents as the cause of diseases classified elsewhere B97.[address] [facility] [address], [place] [address]- 5495 Aug, Unspecified episodic mood disorder F39 ; Anxiety disorder, unspecified F41.9 and Unspecified personality disorder F60.9 [facility] [address], [place] [address]- 9399 Aug, [facility] [id number] [place] [address] 10994- 5821 Aug, [facility] [address], [place] [address]- 0727 Aug, [facility] [id number] [place] [address] 56186- 0552 Aug, Visit for TB skin test Z11.1 [facility] [address], [place] [address]- 1895 Jul, [facility] [id number] [place] [address] 89049- 1748 Jul, [facility] [id number] [place] [address] 86897- 3088 Jul, [facility] [id number] [address]- 0886 Jul, [facility] [id number] [place] [address] 99805- 5322 Jul, [facility] [id number] [place] [address] 174679- 1359 Jul, Unspecified episodic mood disorder F39 ; Anxiety disorder, unspecified F41.9 and Unspecified personality disorder F60.9 [facility] [id number] [place] [address] 57096- 3404 Jun, [facility] [id number] [place] [address] 41346- 8211 Jun, Unspecified episodic mood disorder F39 ; Anxiety disorder, unspecified F41.9 and Unspecified personality disorder F60.9 [facility] [id number] [place] [address] 49818- 2820 Jun, [facility] [id number] [place] [address] 59307- 5634 May, Unspecified episodic mood disorder F39 ; Anxiety disorder, unspecified F41.9 and Unspecified personality disorder F60.9 [facility] [id number] [place] [address] 92092- 7599 May, [facility] [id number] [place] [address] 56481- 3627 May, [facility] [id number] [place] [address] 14348- 4378 May, Edema, unspecified R60.9 [facility] [address], [place] [address]- 9545 Apr, [facility] [id number] [place] [address] 21178- 0278 Apr, Unspecified episodic mood disorder F39 ; Anxiety disorder, unspecified F41.9 and Unspecified personality disorder F60.9 [facility] [id number] [place] [address] 42360- 2484 Apr, Anxiety F41.9 [facility] [address] [place] [address] 63748- 7593 March, Unspecified episodic mood disorder F39 ; Anxiety disorder, unspecified F41.9 and Unspecified personality disorder F60.9 [facility] [address] [place] [address] 75235- 4757 March, Unspecified episodic mood disorder F39 ; Anxiety disorder, unspecified F41.9 and Unspecified personality disorder F60.9 [facility] [id number] [place] [address] 49303- 3142 Feb, Anxiety F41.9 [facility] [id number] [place] [address] 15041- 5990 Feb, Unspecified episodic mood disorder F39 ; Anxiety disorder, unspecified F41.9 and Unspecified personality disorder F60.9 [facility] [id number] [place] [address] 65196- 2263 Jan, Unspecified episodic mood disorder F39 ; Anxiety disorder, unspecified F41.9 and Unspecified personality disorder F60.9 [facility] [address] [place] [address] 53525- 9131 Jan, Unspecified episodic mood disorder F39 ; Anxiety disorder, unspecified F41.9 and Unspecified personality disorder F60.9 [facility] [id number] [place] [address] 35085- 3449 Jan, Edema, unspecified R60.9 [facility] [address], [place] [address]- 1503 Dec, [facility] [id number] [place] [address] 84197- 2745 Dec, [facility] [address], [place] [address]- 8216 Dec, [facility] [id number], [place] [address]- 1399 Dec, Unspecified episodic mood disorder F39 ; Anxiety disorder, unspecified F41.9 and Unspecified personality disorder F60.9 [facility] [address], [place] [address]- 7835 Nov, [facility] [id number] [place] [address] 58650- 8256 Nov, Unspecified episodic mood disorder F39 ; Anxiety disorder, unspecified F41.9 and Unspecified personality disorder F60.9 [facility] [id number] [place] [address] 51263- 2243 Oct, Unspecified episodic mood disorder F39 ; Anxiety disorder, unspecified F41.9 and Unspecified personality disorder F60.9 [place] [id number] [place] [address] 58715- 1257 Oct, Unspecified episodic mood disorder F39 ; Anxiety disorder, unspecified F41.9 and Unspecified personality disorder F60.9 [facility] [address] [place] [address] 63019- 2047 Sep, Unspecified episodic mood disorder F39 ; Anxiety disorder, unspecified F41.9 and Unspecified personality disorder F60.9 [facility] [address], [place] [address]- 0444 Sep, Encounter for immunization Z23 [facility] [id number] [place] [address] 89297- 3484 Sep, Edema of left lower extremity R60.0 [facility] [id number] [place] [address] 02884- 2897 Aug, Unspecified episodic mood disorder F39 ; Anxiety disorder, unspecified F41.9 and Unspecified personality disorder F60.9 [facility] [address] [address]- 8444 Aug, [facility] [id number] [place] [address] 84535- 1039 Aug, Edema of left lower extremity R60.0 [facility] [id number] [place] [address] 26327- 8544 Aug, [facility] [id number] [place] [address] 620137- 1911 Aug, Unspecified episodic mood disorder F39 ; Anxiety disorder, unspecified F41.9 and Unspecified personality disorder F60.9 [facility] [id number] [place] [address] 53562- 3306 Jul, Unspecified episodic mood disorder 296.90 ; Anxiety disorder , unspecified 300.00 and Unspecified personality disorder 301.9 [facility] [id number] [place] [address] 89507- 1561 Jul, Unspecified episodic mood disorder 296.90 ; Anxiety disorder , unspecified 300.00 and Unspecified personality disorder 301.9 [facility] [id number] [place] [address] 34253- 5245 Jul, [facility] [id number] [place] [address] 72693- 9526 Jun, Unspecified episodic mood disorder 296.90 ; Anxiety disorder , unspecified 300.00 and Unspecified personality disorder 301.9 [facility] [id number] [place] [address] 58203- 7350 May, Unspecified episodic mood disorder 296.90 ; Anxiety disorder , unspecified 300.00 and Unspecified personality disorder 301.9 [facility] [address], [place] [address]- 7933 May, Anxiety disorder, unspecified 300.00 [facility] [id number] [place] [address] 52999- 7226 May, Anxiety disorder, unspecified 300.[address] [facility] [id number] [place] [address] 61670- 5717 May, Unspecified episodic mood disorder 296.90 ; Anxiety disorder , unspecified 300.00 and Unspecified personality disorder 301.9 [facility] [address] [address]- 6240 Apr, [facility] [address] [address]- 7031 Apr, Unspecified episodic mood disorder 296.90 ; Anxiety disorder , unspecified 300.00 and Personality disorder, unspecified 301.9 [facility] [id number] [address]- 7434 Apr, Unspecified episodic mood disorder 296.90 ; Anxiety disorder , unspecified 300.00 and Unspecified personality disorder 301.9 [facility] [address], [place] [address]- 9613 March, [facility] [id number] [address]- 2590 March, Unspecified episodic mood disorder 296.90 ; Anxiety disorder , unspecified 300.00 and Unspecified personality disorder 301.9 [facility] [address], [place] [address]- 5434 March, Unspecified episodic mood disorder 296.90 ; Anxiety disorder 300.00 and Unspecified personality disorder 301.9 [facility] [address], [place] [address]- 9822 March, [facility] [address] [address]- 5628 March, [facility] [address] [address]- 8028 Feb, [facility] [address] [address] 0598 Feb, [facility] [address] [address] 0063 Feb, [facility] [id number] [address] 1489 Jan, [facility] [id number] [place] [address]- 2546 Jan, [facility] [place] [facility] [address] [id number] [place] [address]- 9184 Jan, [facility] [place] [facility] [address] [facility] [id number] [place] [address]- 2546 Jan, [facility] [place] [facility] [address] [facility] [id number] [place] [address]- 6076 Jan, [facility] [place] [facility] [address] [facility] [id number] [place] [address] Jan, [facility] [place] [facility] [address] [facility] [id number] [place] [id number] Jan, [facility] [place] [facility] [address] [facility] [id number] [place] [address] Jan, [facility] [place] [facility] [address] [facility] [id number] [place] [address] Jan, [facility] [place] [facility] [address] [facility] [id number] [place] [address]- 1788 Jan, [facility] [place] [facility] [address] [facility] [id number] [place] [address] Jan, 2014 [facility] [place] [facility] [address] [facility] [id number] [place] [address] 9487 Jan, [facility] [place] [facility] [address] [id number] [place] [address] 4497 Jan, [facility] [place] [facility] [address] [facility] [id number] [place] [address] 1341 Jan, [facility] [place] [facility] [address] [id number] [place] [address] 5958 Jan, [facility] [place] [facility] [address] [facility] [id number] [place] [address] 9696 Jan, [facility] [place] [facility] [address] [facility] [id number] [place] [address]- 6423 Dec, [facility] [address] [id number] [place] [address] 1514 Dec, 2014 [facility] [place] [facility] [address] [id number] [place] [address] 4174 Dec, 2014 [facility] [place] [facility] [address] [id number] [place] [address] 0337 Dec, [facility] [place] [facility] [address] [id number] [place] [address]- 0464 Nov, [facility] [place] [facility] [address] [id number] [place] [address]- 4067 Nov, [facility] [place] [facility] [address] [id number] [place] [address]- 5954 Nov, [facility] [place] [facility] [address] [id number] [place] [address]- 1816 Nov, [facility] [place] [facility] [address] [id number] [place] [address]- 0291 Oct, [facility] [place] [facility] [address] [id number] [place] [address]- 4913 Oct, [facility] [place] [facility] [address] [id number] [place] [address]- 5248 Oct, [facility] [place] [facility] [address] [id number] [address] 27[address] Oct, [facility] [place] [facility] [address] [id number], [place] [address] 8887 Oct, [facility] [place] [facility] [address] [id number] [place] [address]- 6761 Oct, [facility] [place] [facility] [address] [id number] [place] [address]- 8103 Oct, [facility] [place] [facility] [address] [id number] [place] [address]- 6787 Oct, [facility] [place] [facility] [address] [id number] [place] [address]- 0361 Oct, [facility] [place] [facility] [address] [id number] [place] [address]- 1291 Oct, [facility] [place] [facility] [address] [id number] [place] [address]- 9674 Oct, [facility] [place] [facility] [address] [id number] [place] [address]- 9510 Oct, [facility] [place] [facility] [address] [id number] [place] [address]- 0603 Oct, [facility] [place] [facility] [address] [id number] [place] [address]- 7878 Oct, [facility] [place] [facility] [address] [id number] [place] [address]- 5734 Oct, [facility] [place] [facility] [address] [id number] [place] [address]- 0832 Oct, [facility] [place] [facility] [address] [id number] [place] [address]- 6876 Sep, [facility] [place] [facility] [address] [id number] [place] [address]- 4794 Sep, [facility] [place] [facility] [address] [id number] [place] [address]- 2786 Sep, [facility] [place] [facility] [address] [id number] [place] [address]- 9083 Sep, [facility] [place] [facility] [address] [id number] [place] [address]- 6961 Sep, [facility] [place] [facility] [address] [id number] [place] [address]- 2709 Sep, [facility] [place] [facility] [address] [id number] [place] [address]- 5395 Sep, [facility] [place] [facility] [address] [id number] [place] [address]- 0026 Sep, [facility] [place] [facility] [address] [id number] [place] [address]- 9758 Sep, [facility] [place] [facility] [address] [id number] [place] [address]- 7733 Sep, [facility] [place] [facility] [address] [id number] [place] [address]- 6245 Aug, [facility] [place] [facility] [address] [id number] [place] [address]- 6955 30 Aug, 2014 [facility] [place] [facility] [address] [id number] [place] [address]- 5619 Aug, [facility] [place] [facility] [address] [id number] [place] [address]- 3639 Aug, [facility] [place] [facility] [address] [id number] [place] [address]- 8728 Aug, [facility] [place] [facility] [address] [id number] [place] [address]- 9624 Aug, [facility] [place] [facility] [address] [id number] [place] [address]- 1163 Aug, [facility] [place] [facility] [address] [id number] [place] [address]- 8901 Aug, [facility] [place] [facility] [address] [id number] [place] [address]- 2059 29 Jul, 2014 [facility] [place] [facility] [address] [id number] [place] [address]- 4333 29 Jul, 2013 [facility] [place] [facility] [address] [id number] [place] [address]- 1282 05 Sep2013 [facility] [place] [facility] [address] [id number] [place] [address]- 0516 Sep, 2013 [facility] [place] [facility] [address] [id number] [place] [address]- 8799 05 Sep, 2013 [facility] [place] [facility] [address] [id number] [place] [address]- 0806 Jul, [facility] [place] [facility] [address] [id number] [place] [address] Jun, [facility] [place] [facility] [address] [id number] [place] [address]- 6429 Jun, [facility] [place] [facility] [address] [id number] [place] [address]- 6093 May, [facility] [place] [facility] [address] [id number] [place] [address]- 4907 May, [facility] [place] [facility] [address] [id number] [place] [address]- 1422 May, [facility] [place] [facility] [address] [id number] [place] [address]- 4546 May, [facility] [place] [facility] [address] [id number] [place] [address]- 0106 May, [facility] [place] [facility] [address] [id number] [place] [address]- 3150 May, [facility] [place] [facility] [address] [id number] [place] [address]- 8788 May, [facility] [place] [facility] [address] [id number] [place] [address]- 5389 May, [facility] [place] [facility] [address] [id number] [place] [address]- 3137 Apr, [facility] [place] [facility] [address] [id number] [place] [address]- 0716 Apr, [facility] [place] [facility] [address] [id number] [place] [address]- 4629 March, [facility] [place] [facility] [address] [id number] [place] [address]- 1247 March, [facility] [place] [facility] [address] [id number] [place] [address]- 5178 Feb, [facility] [place] [facility] [address] [id number] [place] [address]- 2000 Feb, [facility] [address] [id number] [place] [address]- 4445 Feb, [facility] [place] [facility] [address] [id number] [place] [address]- 4456 Feb, [facility] [address] [id number] [place] [address]- 5706 Feb, [facility] [place] [facility] [address] [id number] [place] [address]- 6830 Feb, [facility] [address] [id number] [place] [address]- 8448 Feb, [facility] [place] [facility] [address] [id number] [place] [address]- 7968 Feb, [facility] [address] [id number] [place] [address]- 1977 Feb, [facility] [address] [id number] [place] [address]- 2529 Feb, [facility] [place] [facility] [address] [id number] [place] [address]- 9913 Jan, [facility] [address] [id number] [place] [address]- 5241 Jan, [facility] [place] [facility] [address] [id number] [place] [address]- 5375 Jan, [facility] [place] [facility] [address] [id number] [place] [address]- 8000 Jan, [facility] [place] [facility] [address] [id number] [place] [address]- 2947 Jan, [facility] [place] [facility] [address] [id number] [place] [address]- 7117 Dec, [facility] [place] [facility] [address] [id number] [place]394 Dec, [facility] [place] [facility] [address] [id number] [place] [address]- 6100 Dec, [facility] [place] [facility] [address] [id number] [place] [address]- 0202 Dec, [facility] [place] [facility] [address] [id number] [place] [address]- 6462 Dec, [facility] [place] [facility] [address] [id number] [place] [address]- 1765 Dec, [facility] [place] [facility] [address] [id number] [place] [address]- 4117 Nov, [facility] [place] [facility] [address] [id number] [place] [address]- 5703 Nov, [facility] [place] [facility] [address] [id number] [place] [address]- 3249 Nov, [facility] [place] [facility] [address] [id number] [place] [address]- 6785 Nov, [facility] [place] [facility] [address] [id number] [place] [address]- 4893 Nov, [facility] [place] [facility] [address] [id number] [place] [address]- 7259 Nov, [facility] [place] [facility] [address] [id number], [place] [address]- 5837 Nov, [facility] [place] [facility] [address] [id number], [place] [address]- 5757 Nov, [facility] [place] [facility] [address] [id number] [place] [address]- 2274 Oct, [facility] [place] [facility] [address] [id number] [place] [address]- 5261 Oct, [facility] [place] [facility] [address] [id number] [place] [address]- 9329 Oct, [facility] [place] [facility] [address] [id number] [place] [address]- 8930 06 Oct, 2012 [facility] [address] [id number] [place] [address]- 4137 05 Oct, 2012 [facility] [place] [facility] [address] [id number] [place] [address]- 0882 05 Oct, 2013 [facility] [address] [id number] [place] [address]- 9259 Oct, [facility] [place] [facility] [address] [id number] [place] [address]- 4913 Oct, [facility] [place] [facility] [address] [id number] [place] [address]- 7326 Sep, [facility] [place] [facility] [address] [id number] [place] [address]- 9585 Sep, [facility] [place] [facility] [address] [facility] [id number] [place] [address]- 6934 14 Sep, 2013 [facility] [place] [facility] [address] [id number] [place] [address]- 8558 14 Sep, 2013 [facility] [place] [facility] [address] [facility] [id number] [place] [address]- 0678 Sep, [facility] [place] [facility] [address] [facility] [id number] [place] [address]- 0738 07 Sep, 2013 [facility] [place] [facility] [address] [facility] [id number] [place] [address]- 7245 Sep, [facility] [place] [facility] [address] [facility] [id number], [place] [address]- 7714 Sep, [facility] [place] [facility] [address] [id number] [place] [address]- 0185 Aug, [facility] [place] [facility] [address] [facility] [id number] [place] 6051 Aug, [facility] [place] [facility] [address] [facility] [id number], [place] [address]- 1718 Aug, [facility] [place] [facility] [address] [id number] [place] [address]- 7484 Jul, [facility] [address] [id number] [place] [address]- 5296 Jun, [facility] [address] [id number] [place] [address]- 5817 Jun, [facility] [address] [id number] [place] [address]- 7194 Jun, [facility] [address] [id number] [place] [address]- 4831 Jun, [facility] [address] [id number] [place] [address]- 4551 Jun, [facility] [address] [id number] [place] [address]- 3476 May, [facility] [address] [id number] [place] [address]- 2825 May, [facility] [address] [id number] [place] [address]- 8324 Apr, [facility] [address] [id number] [place] [address]- 9916 Apr, [facility] [address] [id number] [place] [address]- 1059 March, [facility] [address] [id number] [place] [address]- 6786 March, [facility] [address] [id number] [place] [address]- 6809 March, [facility] [place] [facility] [address] [id number] [place] [address]- 7519 March, [facility] [place] [facility] [address] [id number] [place] [address]- 3510 March, [facility] [address] [id number] [place] [address]- 7242 Feb, [facility] [address] [id number] [place] [address]- 8847 Feb, [facility] [address] [id number] [place] [address]- 9196 Feb, [facility] [address] [id number] [place] [address]- 8761 Jan, [facility] [address] [id number] [place] [address]- 7831 Dec, [facility] [address] [id number] [place] [address]- 6191 Dec, [facility] [address] [id number] [place] [address]- 5651 Dec, [facility] [address] [facility] [id number] [place] [address]- 1825 Dec, [facility] [address] [id number] [place] [address]- 1168 Nov, [facility] [address] [id number] [place] [address]- 1298 Nov, [facility] [address] [facility] [id number] [place] [address]- 2500 Nov, [facility] [address] [id number] [place] [address]- 9916 Nov, [facility] [address] [id number] [place] [address]- 4343 Oct, [facility] [place] [facility] [address] [id number] [place] [address]- 9381 Oct, [facility] [place] [facility] [address] [facility] [id number] [place] [address]- 3698 Oct, [facility] [address] [facility] [id number] [place] [address]- 0104 Oct, [facility] [place] [facility] [address] [id number] [place] [address]- 9238 14 Sep, 2012 [facility] [place] [facility] [address] [id number] [place] [address]- 0891 14 Sep, 2012 [facility] [place] [facility] [address] [id number] [place] [address]- 4186 13 Sep, 2012 [facility] [place] [facility] [address] [id number] [place] [address]- 4451 13 Sep, 2012 [facility] [place] [facility] [address] [id number] [place] [address]- 1761 08 Sep, 2012 [facility] [place] [facility] [address] [id number] [place] [address]- 0124 Sep, [facility] [place] [facility] [address] [id number] [place] [address]- 1743 Aug, [facility] [place] [facility] [address] [id number] [place] [address]- 1346 Aug, [facility] [place] [facility] [address] [id number] [place] [address]- 2996 Aug, [facility] [place] [facility] [address] [id number] [place] [address]- 0758 Jul, [facility] [place] [facility] [address] [id number] [place] [address]- 1757 04 Jul, 2012 [facility] [place] [facility] [address] [id number] [place] [address]- 2188 16 Jun, 2012 [facility] [place] [facility] [address] [id number] [place] [address]- 9460 30 May, 2012 [facility] [place] [facility] [address] [id number] [place] [address]- 0996 May, [facility] [place] [facility] [address] [id number] [place] [address]- 2546 Apr, [facility] [place] [facility] [address] [id number] [place] [address]- 5133 Apr, [facility] [place] [facility] [address] [id number] [place] [address]- 5532 March, [facility] [place] [facility] [address] [id number] [place] [address]- 4441 March, [facility] [place] [facility] [address] [facility] [id number] [place] [address]- 2562 Feb, [facility] [place] [facility] [address] [id number] [place] [address]- 2446 16 Feb, 2012 [facility] [place] [facility] [address] [id number] [place] [address]- 4641 Feb, [facility] [place] [facility] [address] [facility] [id number] [place] [address]- 3841 Feb, [facility] [place] [facility] [address] [facility] [id number] [place] [address]- 0394 Jan, [facility] [place] [facility] [address] [facility] [id number] [place] [address]- 6529 Jan, [facility] [place] [facility] [address] [id number] [place] [address]- 5176 29 Dec, 2011 [facility] [place] [facility] [address] [facility] [id number] [place] [address]- 8157 28 Dec, 2011 [facility] [place] [facility] [address] [id number] [place] [address]- 3546 Dec, [facility] [place] [facility] [address] [facility] [id number] [place] [address]- 1620 23 Dec, 2011 [facility] [place] [facility] [address] [facility] [id number] [place] [address]- 0500 20 Dec, 2011 [facility] [place] [facility] [address] [facility] [id number] [place] [address]- 6326 15 Dec, 2011 [facility] [place] [facility] [address] [facility] [id number] [place] [address]- 8541 10 Dec, 2011 [facility] [place] [facility] [address] [id number] [place] [address]- 8621 09 Dec, 2011 [facility] [address] [id number] [place] [address]- 0472 Dec, [facility] [place] [facility] [address] [id number] [place] [address] Dec, [facility] [place] [facility] [address] [id number] [place] [address] Dec, [facility] [place] [facility] [address] [id number] [place] [address] Dec, [facility] [place] [facility] [address] [id number] [place] [address] Dec, [facility] [address] [id number] [place] [address] Nov, [facility] [address] [id number] [place] [address] Nov, [facility] [address] [id number] [place] [address] Nov, [facility] [address] [facility] [id number] [place] [address] Nov, [facility] [address] [facility] [id number] [place] [address] Nov, [facility] [address] [id number] [place] [address] Nov, [facility] [place] [facility] [address] [id number] [place] [address] Oct, [facility] [place] [facility] [address] [id number] [place] [address] Oct, [facility] [place] [facility] [address] [id number] [place] [address] Sep, [facility] [place] [facility] [address] [id number], [place] [address] Sep, [facility] [address] [facility] [id number], [place] [address] Sep, [facility] [address] [facility] [id number][place] [address] [address] Sep, [facility] [address] [facility] [id number], [place] [address] Sep, [facility] [address] [facility] [id number], [place] [address] March, [facility] [address] [facility] [id number] [place] [address] Oct, [facility] [address] [facility] [id number], [place] [address] Oct, [facility] [address] [facility] [id number], [place] [address] Oct, [facility] [address] [facility] [id number], [place] [address] Sep, [facility] [address] [facility] [id number], [place] [address] Sep, [facility] [address] [facility] [id number], [place] [address] Sep, [facility] [address] [facility] [id number], [place] [address] 16 Sep, 2010 [facility] [address] [facility] [id number], [place] [address] Aug, [facility] [address] [facility] [id number][place] [address] Oct, [facility] [address] [facility] [id number] [address] [address] Oct, [facility] [address] [facility] [id number] [address] [address] May, IMMUNIZATIONS No Known Immunizations SOCIAL HISTORY Never Assessed REASON FOR VISIT Controlled Med Refill PLAN OF CARE VITAL SIGNS MEDICATIONS Medication Instructions Dosage Frequency Start Date End Date Duration Status Valium 10 MG Orally Twice a day 1 tablet 12h 30 Jan, 2015 28 days Active RESULTS No Results PROCEDURES No Known procedures INSTRUCTIONS MEDICATIONS ADMINISTERED No Known Medications MEDICAL (GENERAL) HISTORY Type Description Date Medical History hypertension Medical History panic attacks Surgical History cholecystectomy 2008 Hospitalization History surgery
--- OUTSIDE RECORDS SUMMARY | 2018-12-11 10:12 | XMS REPORT ---
Author Author SANJEEV PHELPS [facility] Address [address] [place] [address] Care Team Providers Care Banking Services Officer Name Role Phone SANJEEV PHELPS Unavailable PROBLEMS Type Condition ICD9-CM Code [id number] Code Onset Dates Condition Status SNOMED Code Problem Stress incontinence of urine N39.3 Active 08196080 Problem Anxiety F41.9 Active 51590376 Problem Anxiety disorder, unspecified F41.9 Active 502252683 Problem Unspecified episodic mood disorder F39 Active 858890967 Problem Unspecified personality disorder F60.9 Active 21740572 ALLERGIES No Information ENCOUNTERS Encounter Location Date Diagnosis [facility] [facility] [id number] [place] [address] 98910- 1715 Nov, [facility] [facility] [id number] [place] [address] 75648- 4586 Sep, Unspecified episodic mood disorder F39 ; Anxiety disorder, unspecified F41.9 and Unspecified personality disorder F60.9 [facility] [id number] [place] [address] 80111- 3437 Sep, Anxiety F41.9 [place] [facility] [id number] [place] [address] 59607- 3410 Aug, Anxiety F41.9 [place] [facility] [id number] [place] [address] 42736- 2296 10 Aug, 2018 Unspecified episodic mood disorder F39 ; Anxiety disorder, unspecified F41.9 and Unspecified personality disorder F60.9 [place] [id number] [place] [address] 62225- 5403 Jul, Anxiety F41.9 [place] [id number] [place] [address] 72376- 8982 Jun, Unspecified episodic mood disorder F39 ; Anxiety disorder, unspecified F41.9 and Unspecified personality disorder F60.9 [facility] [id number] [place] [address] 46114- 6665 Jun, Anxiety disorder, unspecified F41.9 [facility] [id number] [place] [address] 83843- 1745 May, Unspecified episodic mood disorder F39 ; Anxiety disorder, unspecified F41.9 and Unspecified personality disorder F60.9 [facility] [id number] [place] [address] 62859- 1343 May, Anxiety disorder, unspecified F41.9 [facility] [id number] [place] [address] 46004- 7248 Apr, Anxiety disorder, unspecified F41.9 [facility] [id number] [place] [address] 33358- 8582 Apr, Unspecified episodic mood disorder F39 ; Anxiety disorder, unspecified F41.9 and Unspecified personality disorder F60.9 [facility] [id number] [place] [address] 02471- 8484 March, Anxiety disorder, unspecified F41.9 [facility] [id number] [place] [address] 10445- 5952 March, Unspecified episodic mood disorder F39 ; Anxiety disorder, unspecified F41.9 and Unspecified personality disorder F60.9 [facility] [id number] [place] [address] 91946- 3357 March, Anxiety disorder, unspecified F41.9 [facility] [id number] [place] [address] 78729- 2555 Feb, Unspecified episodic mood disorder F39 ; Anxiety disorder, unspecified F41.9 and Unspecified personality disorder F60.9 [facility] [id number] [place] [address] 03740- 7912 Feb, Unspecified episodic mood disorder F39 ; Anxiety disorder, unspecified F41.9 and Unspecified personality disorder F60.9 [facility] [id number] [place] [address] 25487- 4025 Feb, Anxiety disorder, unspecified F41.9 [facility] [id number] [place] [address] 05828- 6997 Jan, Unspecified episodic mood disorder F39 ; Anxiety disorder, unspecified F41.9 and Unspecified personality disorder F60.9 [facility] [id number] [place] [address] 96497- 0200 Jan, Anxiety F41.9 [facility] [id number] [place] [address] 27545- 0078 Jan, Anxiety disorder, unspecified F41.9 [facility] [id number] [place] [address] 05267- 8412 Dec, Unspecified episodic mood disorder F39 ; Anxiety disorder, unspecified F41.9 and Unspecified personality disorder F60.9 [facility] [id number] [place] [address] 46674- 0070 Dec, Anxiety F41.9 [facility] [id number] [place] [address] 45143- 5231 Dec, Anxiety disorder, unspecified F41.9 [facility] [id number] [place] [address] 71373- 6460 Dec, Unspecified episodic mood disorder F39 ; Anxiety disorder, unspecified F41.9 and Unspecified personality disorder F60.9 [facility] [id number] [place] [address] 76155- 2888 Nov, [facility] [id number] [place] [address] 10333- 4279 Nov, [facility] [id number] [place] [address] 34473- 7241 Nov, Unspecified episodic mood disorder F39 ; Anxiety disorder, unspecified F41.9 and Unspecified personality disorder F60.9 [place] [id number] [place] [address] 41733- 9274 Nov, Anxiety disorder, unspecified F41.9 [facility] [place] [address] [place] [address] 92444- 4593 Oct, Unspecified episodic mood disorder F39 ; Anxiety disorder, unspecified F41.9 and Unspecified personality disorder F60.9 [facility] [place] [id number] [place] [address] 34825- 0745 Oct, Vaginal yeast infection B37.3 [facility] [facility] [id number] [place] [address] 24134- 9217 Oct, [facility] [id number] [place] [address] 44697- 3622 Oct, Anxiety disorder, unspecified F41.9 [facility] [id number] [place] [address] 34353- 8678 Oct, Routine gynecological examination Z01.419 ; Screening for breast cancer Z12.31 and Vaginal yeast infection B37.3 [place] [id number] [place] [address] 75512- 6745 Sep, Unspecified episodic mood disorder F39 ; Anxiety disorder, unspecified F41.9 and Unspecified personality disorder F60.9 [facility] [id number] [place] [address] 12736- 6946 Sep, [facility] [id number] [place] [address] 89014- 5510 Sep, Anxiety disorder, unspecified F41.9 [facility] [id number] [place] [address] 12009- 4179 Sep, Bronchitis J40 and Stress incontinence of urine N39.3 [facility] [id number] [place] [address] 58180- 5376 Sep, Stress incontinence of urine N39.3 ; Bronchitis J40 and Anxiety F41.9 [place] [facility] [id number] [place] [address] 96138- 5800 Sep, [facility] [id number] [place] [address] 72156- 8717 Sep, Unspecified episodic mood disorder F39 ; Anxiety disorder, unspecified F41.9 and Unspecified personality disorder F60.9 [facility] [id number] [place] [address] 50490- 4785 Aug, Anxiety F41.9 ; Stress incontinence of urine N39.3 and Encounter for immunization Z23 [facility] [address] 79328- 7509 Aug, Anxiety disorder, unspecified F41.9 [place] [id number] [place] [address] 35738- 7912 Jul, Unspecified episodic mood disorder F39 ; Anxiety disorder, unspecified F41.9 and Unspecified personality disorder F60.9 [facility] [id number] [place] [address] 44963- 4801 Jul, [facility] [id number] [place] [address] 66752- 2584 Jul, Unspecified episodic mood disorder F39 ; Anxiety disorder, unspecified F41.9 and Unspecified personality disorder F60.9 [place] [id number] [place] [address] 99701- 1350 Jul, Anxiety disorder, unspecified F41.9 [place] [id number] [place] [address] 79713- 8113 Jun, Unspecified episodic mood disorder F39 ; Anxiety disorder, unspecified F41.9 and Unspecified personality disorder F60.9 [facility] [id number] [place] [address] 00608- 6705 Jun, Anxiety disorder, unspecified F41.9 [place] [address] [place] [address]- 2799 Jun, Unspecified episodic mood disorder F39 ; Anxiety disorder, unspecified F41.9 and Unspecified personality disorder F60.9 [facility] [address] [address]- 1652 Jun, [facility] [id number] [place] [address] 29513- 8988 May, Anxiety disorder, unspecified F41.9 [facility] [id number] [place] [address] 09401- 1973 May, Unspecified episodic mood disorder F39 ; Anxiety disorder, unspecified F41.9 and Unspecified personality disorder F60.9 [facility] [id number] [place] [address] 36623- 2653 Apr, Anxiety disorder, unspecified F41.9 [facility] [id number] [place] [address] 51722- 6595 March, Unspecified episodic mood disorder F39 ; Anxiety disorder, unspecified F41.9 and Unspecified personality disorder F60.9 [facility] [id number] [place] [address] 15971- 9858 March, Bronchitis J40 [facility] [id number] [place] [address] 27875- 4385 March, Unspecified episodic mood disorder F39 ; Anxiety disorder, unspecified F41.9 and Unspecified personality disorder F60.9 [facility] [address] [address]- 8825 Feb, [facility] [id number] [place] [address] 10626- 1732 Feb, Unspecified episodic mood disorder F39 ; Anxiety disorder, unspecified F41.9 and Unspecified personality disorder F60.9 [facility] [address] [address]- 1973 Feb, Bronchitis J40 [facility] [address] [address]- 4478 Feb, Unspecified episodic mood disorder F39 ; Anxiety disorder, unspecified F41.9 and Unspecified personality disorder F60.9 [facility] [address] [address]- 4118 Jan, Unspecified episodic mood disorder F39 ; Anxiety disorder, unspecified F41.9 and Unspecified personality disorder F60.9 [facility] [address] [address]- 0233 Jan, Bronchitis J40 [facility] [id number] [place] [address] 34649- 5573 Jan, Unspecified episodic mood disorder F39 ; Anxiety disorder, unspecified F41.9 and Unspecified personality disorder F60.9 [place] [address] [address]- 0546 Dec, Anxiety F41.9 [facility] [address] [address]- 4818 Dec, Unspecified episodic mood disorder F39 ; Anxiety disorder, unspecified F41.9 and Unspecified personality disorder F60.9 [place] [address] [id number] [id number] Dec, [facility] [address] [address]- 4496 Dec, Unspecified episodic mood disorder F39 ; Anxiety disorder, unspecified F41.9 and Unspecified personality disorder F60.9 [facility] [id number] [address]- 0176 Nov, [facility] [address] [address]- 8551 Oct, Unspecified episodic mood disorder F39 ; Anxiety disorder, unspecified F41.9 and Unspecified personality disorder F60.9 [facility] [address] [address]- 2170 Oct, [facility] [address] [address] Oct, Acute upper respiratory infection, unspecified J06.9 ; Other viral agents as the cause of diseases classified elsewhere B97.89 and Cough R05 [facility] [address] [address]- 0364 Aug, Unspecified episodic mood disorder F39 ; Anxiety disorder, unspecified F41.9 and Unspecified personality disorder F60.9 [facility] [address] [address]- 2893 Aug, [facility] [id number] [place] [address] 65706- 3294 Aug, [facility] [id number] [place] [address] 51113- 5975 Aug, [facility] [id number] [place] [address] 50927- 1664 Aug, Visit for TB skin test Z11.1 [facility] [id number] [place] [address] 60748- 3250 Jul, [facility] [address] [address]- 5549 Jul, [facility] [address] [address]- 7476 Jul, [facility] [id number] [address]- 8576 Jul, [facility] [address] [address]- 4242 Jul, [facility] [address] [address]- 9368 Jul, Unspecified episodic mood disorder F39 ; Anxiety disorder, unspecified F41.9 and Unspecified personality disorder F60.9 [facility] [id number] [address]- 3551 Jun, [facility] [id number] [place] [address] 60635- 7097 Jun, Unspecified episodic mood disorder F39 ; Anxiety disorder, unspecified F41.9 and Unspecified personality disorder F60.9 [facility] [id number] [place] [address] 31711- 6585 Jun, [facility] [id number] [place] [address] 10007- 4977 May, Unspecified episodic mood disorder F39 ; Anxiety disorder, unspecified F41.9 and Unspecified personality disorder F60.9 [place] [id number] [place] [address] 46776- 5252 May, [facility] [id number] [place] [address] 86443- 3749 May, [facility] [id number] [place] [address] 38073- 3495 May, Edema, unspecified R60.9 [facility] [id number] [place] [address] 52283- 6274 Apr, [facility] [id number] [place] [address] 07167- 4741 Apr, Unspecified episodic mood disorder F39 ; Anxiety disorder, unspecified F41.9 and Unspecified personality disorder F60.9 [facility] [address] [place] [address] 13050- 8899 Apr, Anxiety F41.9 [facility] [address] [place] [address] 34218- 3848 March, Unspecified episodic mood disorder F39 ; Anxiety disorder, unspecified F41.9 and Unspecified personality disorder F60.9 [facility] [address] [address]- 0430 March, Unspecified episodic mood disorder F39 ; Anxiety disorder, unspecified F41.9 and Unspecified personality disorder F60.9 [facility] [address], [place] [address]- 6132 Feb, Anxiety F41.9 [facility] [id number] [place] [address] 78500- 6457 Feb, Unspecified episodic mood disorder F39 ; Anxiety disorder, unspecified F41.9 and Unspecified personality disorder F60.9 [facility] [id number] [place] [address] 22796- 2208 Jan, Unspecified episodic mood disorder F39 ; Anxiety disorder, unspecified F41.9 and Unspecified personality disorder F60.9 [facility] [id number] [place] [address] 57919- 0491 Jan, Unspecified episodic mood disorder F39 ; Anxiety disorder, unspecified F41.9 and Unspecified personality disorder F60.9 [facility] [id number] [place] [address] 78103- 9763 Jan, Edema, unspecified R60.9 [facility] [id number] [place] [address] 61373- 6500 Dec, [facility] [id number] [place] [address] 50823- 7415 Dec, [facility] [id number] [place] [address] 79215- 6810 Dec, [facility] [id number] [place] [address] 23638- 3647 Dec, Unspecified episodic mood disorder F39 ; Anxiety disorder, unspecified F41.9 and Unspecified personality disorder F60.9 [facility] [address] [place] [address] 66472- 5095 Nov, [facility] [id number] [place] [address] 98183- 1579 Nov, Unspecified episodic mood disorder F39 ; Anxiety disorder, unspecified F41.9 and Unspecified personality disorder F60.9 [facility] [address] [address]- 7468 Oct, Unspecified episodic mood disorder F39 ; Anxiety disorder, unspecified F41.9 and Unspecified personality disorder F60.9 [facility] [id number] [place] [address] 13003- 9303 Oct, Unspecified episodic mood disorder F39 ; Anxiety disorder, unspecified F41.9 and Unspecified personality disorder F60.9 [facility] [id number] [place] [address] 58986- 0869 Sep, Unspecified episodic mood disorder F39 ; Anxiety disorder, unspecified F41.9 and Unspecified personality disorder F60.9 [place] [id number] [place] [address] 83789- 6250 Sep, Encounter for immunization Z23 [place] [id number] [place] [address] 30374- 2532 Sep, Edema of left lower extremity R60.0 [facility] [id number] [place] [address] 56422- 2593 Aug, Unspecified episodic mood disorder F39 ; Anxiety disorder, unspecified F41.9 and Unspecified personality disorder F60.9 [facility] [id number] [place] [address] 09222- 1195 Aug, [facility] [id number] [place] [address] 96219- 5701 Aug, Edema of left lower extremity R60.0 [facility] [id number] [place] [address] 60256- 4145 Aug, [facility] [id number] [place] [address] 04273- 1214 Aug, Unspecified episodic mood disorder F39 ; Anxiety disorder, unspecified F41.9 and Unspecified personality disorder F60.9 [facility] [id number] [address]- 2475 Jul, Unspecified episodic mood disorder 296.90 ; Anxiety disorder , unspecified 300.00 and Unspecified personality disorder 301.9 [facility] [address] [address]- 2384 Jul, Unspecified episodic mood disorder 296.90 ; Anxiety disorder , unspecified 300.00 and Unspecified personality disorder 301.9 [facility] [id number] [place] [address] 86334- 4800 Jul, [facility] [id number] [place] [address] 76945- 2910 Jun, Unspecified episodic mood disorder 296.90 ; Anxiety disorder , unspecified 300.00 and Unspecified personality disorder 301.9 [facility] [id number] [place] [address] 42153- 7789 May, Unspecified episodic mood disorder 296.90 ; Anxiety disorder , unspecified 300.00 and Unspecified personality disorder 301.9 [facility] [id number] [place] [address] 43068- 0389 May, Anxiety disorder, unspecified 300.00 [facility] [id number] [place] [address] 01546- 9038 May, Anxiety disorder, unspecified 300.00 and Edema 782.3 [facility] [id number] [place] [address] 24778- 7784 May, Unspecified episodic mood disorder 296.90 ; Anxiety disorder , unspecified 300.00 and Unspecified personality disorder 301.9 [facility] [address], [place] [address]- 1115 Apr, [facility] [id number] [place] [address] 20969- 8703 Apr, Unspecified episodic mood disorder 296.90 ; Anxiety disorder , unspecified 300.00 and Personality disorder, unspecified 301.9 [facility] [id number] [place] [address] 69713- 8821 Apr, Unspecified episodic mood disorder 296.90 ; Anxiety disorder , unspecified 300.00 and Unspecified personality disorder 301.9 [facility] [address] [address]- 4733 March, [facility] [address] 0997 March, Unspecified episodic mood disorder 296.90 ; Anxiety disorder , unspecified 300.00 and Unspecified personality disorder 301.9 [facility] [id number] [address]- 9927 March, Unspecified episodic mood disorder 296.90 ; Anxiety disorder 300.00 and Unspecified personality disorder 301.9 [facility] [address], [place] [address]- 7626 March, [facility] [address], [place] [address]- 7364 March, [facility] [address], [place] [address]- 7205 Feb, [facility] [address], [place] [address]- 5288 Feb, [facility] [address], [place] [address]- 7744 Feb, [facility] [address], [place] [address]- 9505 Jan, [facility] [address], [place] [address]- 5505 Jan, [facility] [address], [place] [address]- 1394 Jan, [facility] [address], [place] [address]- 9556 Jan, [facility] [address], [place] [address]- 7146 Jan, [facility] [place] [facility] [address] [id number] [place] [id number] Jan, 2014 [facility] [place] [facility] [address] [id number] [place] [id number] Jan, 2014 [facility] [place] [facility] [address] [id number] [place] [address] Jan, 2014 [facility] [place] [facility] [address] [id number] [place] [address] Jan, 2014 [facility] [place] [facility] [address] [id number] [place] [address] Jan, 2014 [facility] [place] [facility] [address] [id number] [place] [address] Jan, 2014 [facility] [place] [facility] [address] [facility] [id number] [place] [address] Jan, 2014 [facility] [place] [facility] [address] [id number] [place] [address] Jan, 2014 [facility] [place] [facility] [address] [id number] [place] [address] Jan, 2014 [facility] [place] [facility] [address] [id number] [place] [address] 9563 Jan, 2014 [facility] [place] [facility] [address] [facility] [id number] [place] [address] 5349 Jan, 2014 [facility] [place] [facility] [address] [id number] [place] [address] 6073 Dec, 2014 [facility] [place] [facility] [address] [id number] [place] [address] Dec, 2014 [facility] [place] [facility] [address] [id number] [place] [address]- 7415 Dec, 2014 [facility] [place] [facility] [address] [facility] [id number] [place] [address] Dec, 2014 [facility] [place] [facility] [address] [facility] [id number] [place] [address] 0348 Nov, [facility] [place] [facility] [address] [id number] [place] [address] 8712 Nov, [facility] [place] [facility] [address] [id number] [place] [address] 4614 Nov, [facility] [place] [facility] [address] [id number] [place] [address]- 9280 Nov, [facility] [place] [facility] [address] [id number] [place] [address] 7195 Oct, [facility] [place] [facility] [address] [id number] [place] [address]- 3957 Oct, [facility] [place] [facility] [address] [id number] [place] [address]- 7032 Oct, [facility] [place] [facility] [address] [id number] [place] [address]- 4662 Oct, [facility] [place] [facility] [address] [id number] [place] [address]- 9330 Oct, [facility] [place] [facility] [address] [id number] [place] [address]- 9915 Oct, [facility] [place] [facility] [address] [id number] [place] [address]- 2410 Oct, [facility] [place] [facility] [address] [id number] [place] [address]- 4134 Oct, [facility] [place] [facility] [address] [id number] [place] [address]- 7613 Oct, [facility] [place] [facility] [address] [id number] [place] [address]- 5647 Oct, [facility] [place] [facility] [address] [id number] [place] [address]- 7138 Oct, [facility] [place] [facility] [address] [id number] [place] [address]- 4966 Oct, [facility] [place] [facility] [address] [id number] [place] [address]- 9965 Oct, [facility] [place] [facility] [address] [id number] [place] [address]- 2576 Oct, [facility] [place] [facility] [address] [id number] [place] [address]- 0466 Oct, [facility] [place] [facility] [address] [id number] [place] [address]- 3023 Oct, [facility] [place] [facility] [address] [id number] [place] [address]- 0156 Sep, [facility] [place] [facility] [address] [id number] [place] [address]- 6795 Sep, [facility] [place] [facility] [address] [id number] [place] [address]- 5510 Sep, [facility] [place] [facility] [address] [id number] [place] [address]- 7454 Sep, [facility] [place] [facility] [address] [id number] [place] [address]- 7253 Sep, [facility] [place] [facility] [address] [id number] [place] [address]- 4074 Sep, [facility] [place] [facility] [address] [id number] [place] [address]- 7977 Sep, [facility] [place] [facility] [address] [id number] [place] [address] 1940 Sep, [facility] [place] [facility] [address] [id number] [place] [address]- 4962 Sep, [facility] [place] [facility] [address] [id number] [place] [address]- 2800 Sep, [facility] [place] [facility] [address] [id number] [place] [address]- 0169 Aug, [facility] [place] [facility] [address] [id number] [place] [address]- 5882 Aug, [facility] [place] [facility] [address] [id number] [place] [address]- 3018 Aug, [facility] [place] [facility] [address] [id number] [place] [address]- 5626 14 Aug, 2014 [facility] [place] [facility] [address] [id number] [place] [address]- 5618 Aug, [facility] [place] [facility] [address] [id number] [place] [address]- 6149 Aug, [facility] [place] [facility] [address] [id number] [place] [address]- 5793 Aug, [facility] [place] [facility] [address] [id number] [place] [address]- 4604 Aug, [facility] [place] [facility] [address] [id number] [place] [address]- 8997 29 Jul, 2014 [facility] [place] [facility] [address] [id number] [place] [address]- 6087 29 Jul, 2014 [facility] [place] [facility] [address] [id number] [place] [address]- 7652 Jul, [facility] [place] [facility] [address] [id number] [place] [address]- 6794 Jul, [facility] [place] [facility] [address] [id number], [place] [address] 9072 Jul, [facility] [place] [facility] [address] [id number], [place] [address]- 8028 05 Jul, 2014 [facility] [place] [facility] [address] [id number] [place] [address]- 0683 Jun, [facility] [place] [facility] [address] [id number] [place] [address]- 0759 Jun, [facility] [place] [facility] [address] [id number], [place] [address]- 6703 May, [facility] [place] [facility] [address] [id number], [place] [address]- 4348 May, [facility] [place] [facility] [address] [id number] [place] [address]- 9094 May, [facility] [place] [facility] [address] [id number] [place] [address]- 7002 May, [facility] [place] [facility] [address] [id number] [place] [address]- 1561 May, [facility] [place] [facility] [address] [id number] [place] [address]- 9029 May, [facility] [place] [facility] [address] [id number] [place] [address]- 4144 May, [facility] [place] [facility] [address] [id number] [place] [address]- 8821 May, [facility] [place] [facility] [address] [id number] [place] [address]- 9200 Apr, [facility] [place] [facility] [address] [id number] [place] [address]- 2964 Apr, [facility] [place] [facility] [address] [id number] [place] [address]- 4871 March, [facility] [place] [facility] [address] [id number] [place] [address]- 5870 March, [facility] [place] [facility] [address] [id number] [place] [address]- 6394 Feb, [facility] [place] [facility] [address] [id number] [place] [address]- 2185 Feb, [facility] [place] [facility] [address] [id number] [place] [address]- 8403 Feb, [facility] [place] [facility] [address] [id number] [place] [address]- 2825 Feb, [facility] [place] [facility] [address] [id number] [place] [address]- 6059 Feb, [facility] [place] [facility] [address] [id number] [place] [address]- 3510 Feb, [facility] [place] [facility] [address] [id number] [place] [address]- 4371 Feb, [facility] [place] [facility] [address] [id number] [place] [address]- 0656 Feb, [facility] [place] [facility] [address] [id number] [place] [address]- 9176 Feb, [facility] [place] [facility] [address] [id number] [place] [address]- 2730 Feb, [facility] [place] [facility] [address] [id number] [place] [address]- 0691 Jan, [facility] [place] [facility] [address] [id number] [place] [address]- 7396 Jan, [facility] [place] [facility] [address] [id number] [place] [address]- 7919 Jan, [facility] [place] [facility] [address] [id number] [place] [address]- 4156 Jan, [facility] [place] [facility] [address] [id number] [place] [address]- 6085 Jan, [facility] [place] [facility] [address] [facility] [id number] [place] [address]- 4054 Dec, [facility] [place] [facility] [address] [id number] [place] [address]- 8051 Dec, [facility] [place] [facility] [address] [id number] [place] [address]- 2313 Dec, [facility] [place] [facility] [address] [id number] [place] [address]- 9418 Dec, [facility] [place] [facility] [address] [id number] [place] 06 Dec, 2013 [facility] [place] [facility] [address] [id number], [place] [address]- 5080 Dec, [facility] [address] [id number] [place] [address]- 3946 Nov, [facility] [place] [facility] [address] [id number] [place] [address]- 7691 Nov, [facility] [place] [facility] [address] [id number] [place] [address]- 2903 Nov, [facility] [place] [facility] [address] [id number] [place] [address]- 8788 Nov, [facility] [place] [facility] [address] [id number] [place] [address]- 8892 Nov, [facility] [place] [facility] [address] [id number] [place] [address]- 5641 Nov, [facility] [place] [facility] [address] [id number] [place] [address]- 8954 Nov, [facility] [place] [facility] [address] [id number] [place] [address]- 7406 Nov, [facility] [place] [facility] [address] [id number] [place] [address]- 8083 Oct, [facility] [place] [facility] [address] [id number] [place] [address]- 8617 Oct, [facility] [place] [facility] [address] [id number], [place] [address]- 3625 Oct, [facility] [place] [facility] [address] [id number], [place] [address]- 3024 Oct, [facility] [place] [facility] [address] [id number], [place] [address]- 8236 Oct, [facility] [place] [facility] [address] [id number], [place] [address]- 8512 Oct, [facility] [place] [facility] [address] [id number] [place] [address]- 3844 Oct, [facility] [place] [facility] [address] [id number] [place] [address] 2542 Oct, [facility] [place] [facility] [address] [id number] [place] [address]- 0217 Sep, [facility] [place] [facility] [address] [id number] [place] [address]- 0346 Sep, [facility] [place] [facility] [address] [id number] [place] [address]- 2024 Sep, [facility] [place] [facility] [address] [id number] [place] [address]- 5802 14 Sep, 2013 [facility] [place] [facility] [address] [id number] [place] [address]- 0883 Sep, [facility] [place] [facility] [address] [id number] [place] [address]- 1962 Sep, [facility] [place] [facility] [address] [id number] [place] [address]- 8616 Sep, [facility] [place] [facility] [address] [id number] [place] [address]- 5144 Sep, [facility] [place] [facility] [address] [id number] [place] [address]- 9357 Aug, [facility] [place] [facility] [address] [id number] [place] [address]- 8742 Aug, [facility] [place] [facility] [address] [id number] [place] [address]- 2544 Aug, [facility] [place] [facility] [address] [id number] [place] [address]- 3814 Jul, [facility] [place] [facility] [address] [id number] [place] [address]- 2546 Jun, [facility] [place] [facility] [address] [id number] [place] [address]- 2546 Jun, [facility] [place] [facility] [address] [id number] [place] [address]- 5252 Jun, [facility] [address] [id number] [place] [address]- 7083 Jun, [facility] [place] [facility] [address] [id number] [place] [address]- 4971 Jun, [facility] [place] [facility] [address] [id number] [place] [address]- 2281 May, [facility] [place] [facility] [address] [id number] [place] [address]- 3641 May, [facility] [address] [id number] [place] [address]- 9452 Apr, [facility] [place] [facility] [address] [id number] [place] [address]- 7884 Apr, [facility] [address] [id number] [place] [address]- 0497 March, [facility] [place] [facility] [address] [id number] [place] [address]- 3379 March, [facility] [place] [facility] [address] [id number] [place] [address]- 5674 March, [facility] [place] [facility] [address] [id number] [place] [address]- 2792 March, [facility] [place] [facility] [address] [id number] [place] [address]- 7558 March, [facility] [place] [facility] [address] [id number] [place] [address]- 5597 Feb, [facility] [place] [facility] [address] [id number] [place] [address]- 7733 Feb, [facility] [place] [facility] [address] [id number] [place] [address]- 9106 Feb, [facility] [place] [facility] [address] [id number] [place] [address]- 9033 Jan, [facility] [place] [facility] [address] [id number] [place] [address]- 3885 Dec, [facility] [address] [id number] [place] [address]- 0656 Dec, [facility] [address] [id number] [place] [address]- 4456 18 Dec, 2012 [facility] [address] [id number] [place] [address]- 5996 07 Dec, 2012 [facility] [address] [id number] [place] [address]- 2117 28 Nov, 2012 [facility] [address] [id number] [place] [address]- 6727 24 Nov, 2012 [facility] [address] [id number] [place] [address]- 0281 Nov, [facility] [address] [id number] [place] [address]- 1463 Nov, [facility] [address] [id number] [place] [address]- 3835 Oct, [facility] [address] [id number] [place] [address]- 5005 Oct, [facility] [address] [facility] [id number] [place] [address]- 1321 Oct, [facility] [address] [id number] [place] [address]- 9366 06 Oct, 2012 [facility] [address] [id number] [place] [address]- 2050 14 Sep, 2012 [facility] [place] [facility] [address] [id number] [place] [address]- 1372 14 Sep, 2012 [facility] [place] [facility] [address] [id number] [place] [address]- 7827 13 Sep, 2012 [facility] [address] [id number] [place] [address]- 1620 13 Sep, 2012 [facility] [place] [facility] [address] [id number] [place] [address] 2543 Sep, [facility] [place] [facility] [address] [id number] [place] [address]- 2546 Sep, [facility] [place] [facility] [address] [id number] [place] [address]- 2546 Aug, [facility] [place] [facility] [address] [id number] [place] [address]- 2546 Aug, [facility] [place] [facility] [address] [id number] [place] [address] 2545 Aug, [facility] [place] [facility] [address] [id number] [place] [address]- 6206 Jul, [facility] [place] [facility] [address] [id number] [place] [address]- 2546 Jul, [facility] [place] [facility] [address] [id number] [place] [address]- 7803 Jun, [facility] [place] [facility] [address] [id number] [place] [address]- 3362 May, [facility] [place] [facility] [address] [id number] [place] [address]- 5667 May, [facility] [place] [facility] [address] [facility] [id number] [place] [address]- 2546 Apr, [facility] [place] [facility] [address] [id number], [place] [address]- 2546 Apr, [facility] [place] [facility] [address] [id number] [place] [address]- 5895 March, [facility] [place] [facility] [address] [id number] [place] [address]- 2546 March, [facility] [place] [facility] [address] [id number] [place] [address]- 2546 Feb, [facility] [place] [facility] [address] [id number], [place] [address]- 6747 16 Feb, 2012 [facility] [place] [facility] [address] [id number] [place] [address]- 5766 09 Feb, 2012 [facility] [place] [facility] [address] [facility] [id number] [place] [address]- 1986 06 Feb, 2012 [facility] [place] [facility] [address] [facility] [id number] [place] [address]- 6926 15 Jan, 2012 [facility] [place] [facility] [address] [id number] [place] [address]- 0623 07 Jan, 2012 [facility] [place] [facility] [address] [id number] [place] [address]- 0266 29 Dec, 2011 [facility] [place] [facility] [address] [facility] [id number] [place] [address]- 0546 28 Dec, 2011 [facility] [place] [facility] [address] [id number] [place] [address]- 1812 26 Dec, 2011 [facility] [place] [facility] [address] [facility] [id number] [place] [address]- 6163 23 Dec, 2011 [facility] [place] [facility] [address] [facility] [id number] [place] [address]- 9159 20 Dec, 2011 [facility] [place] [facility] [address] [facility] [id number] [place] [address]- 9323 15 Dec, 2011 [facility] [place] [facility] [address] [facility] [id number] [place] [address]- 5726 10 Dec, 2011 [facility] [place] [facility] [address] [facility] [id number] [place] [address]- 9716 09 Dec, 2011 [facility] [place] [facility] [address] [facility] [id number] [place] [address]- 8096 08 Dec, 2011 [facility] [place] [facility] [address] [facility] [id number] [place] [address]- 2276 07 Dec, 2011 [facility] [place] [facility] [address] [facility] [id number] [place] [address]- 3340 Dec, [facility] [address] [id number] [place] [address]- 0204 Dec, [facility] [place] [facility] [address] [id number] [place] [address]- 1339 Dec, [facility] [place] [facility] [address] [id number] [place] [address]- 3384 Nov, [facility] [place] [facility] [address] [id number] [place] [address]- 2865 Nov, [facility] [place] [facility] [address] [id number] [place] [address]- 9556 Nov, [facility] [place] [facility] [address] [id number] [place] [address]- 8021 Nov, [facility] [place] [facility] [address] [facility] [id number] [place] [address] Nov, [facility] [place] [facility] [address] [id number] [place] [address] Nov, [facility] [place] [facility] [address] [id number] [place] [address] Oct, [facility] [place] [facility] [address] [id number] [place] [address] Oct, [facility] [place] [facility] [address] [id number], [place] [address] Sep, [facility] [place] [facility] [address] [id number], [place] [address] Sep, [facility] [place] [facility] [address] [id number] [place] [address] Sep, [facility] [place] [facility] [address] [id number], [place] [address] Sep, [facility] [place] [facility] [address] [facility] [id number] [place] [address] Sep, [facility] [place] [facility] [address] [id number], [place] [address] March, [facility] [id number], [place] [address] Oct, [facility] [id number], [place] [address] Oct, [facility] [id number], [place] [address] Oct, [facility] [id number], [place] [address] Sep, [facility] [id number], [place] [address] Sep, [facility] [id number], [place] [address] Sep, [facility] [id number], [place] [address] Sep, [facility] [id number], [place] [address] Aug, [facility] [id number], [place] [address] Oct, [facility] [address] [id number], [place] [address] Oct, [facility] [address] [id number], [place] [address] May, IMMUNIZATIONS No Known Immunizations SOCIAL HISTORY Never Assessed REASON FOR VISIT f/u PLAN OF CARE Activity Details Follow Up Next available Reason: F/U VITAL SIGNS MEDICATIONS Unknown Medications RESULTS No Results PROCEDURES Procedure Date Ordered Result Body Site Psychotherapy, patient &/family, 45 minutes, established patient Sep 25, 2018 INSTRUCTIONS MEDICATIONS ADMINISTERED No Known Medications MEDICAL (GENERAL) HISTORY Type Description Date Medical History hypertension Medical History panic attacks Surgical History cholecystectomy 2009 Hospitalization History surgery
--- OUTSIDE RECORDS SUMMARY | 2018-12-11 10:12 | XMS REPORT ---
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 Name Role Phone LEIDA ANDINO Unavailable PROBLEMS Type Condition ICD9-CM Code YIH23-MH Code Onset Dates Condition Status SNOMED Code Problem Post-menopausal bleeding N95.0 Active 60863992 Problem Stress incontinence of urine N39.3 Active 30955657 Problem Unspecified personality disorder F60.9 Active 58295450 Problem Anxiety disorder, unspecified F41.9 Active 172391756 Problem Anxiety F41.9 Active 55559469 Problem Unspecified episodic mood disorder F39 Active [id number] ALLERGIES No Information ENCOUNTERS Encounter Location Date Diagnosis [facility] [id number] [place] [address] 83392- 0216 Nov, [facility] [id number] [place] [address] 26651- 4777 Oct, Encounter for immunization Z23 [facility] [id number] [place] [address] 86309- 8140 Oct, Anxiety F41.9 [facility] [id number] [place] [address] 46755- 6250 Oct, Post-menopausal bleeding N95.0 [facility] [id number] [place] [address] 53826- 4348 Sep, Unspecified episodic mood disorder F39 ; Anxiety disorder, unspecified F41.9 and Unspecified personality disorder F60.9 [facility] [id number] [place] [address] 94626- 1781 14 Sep, 2018 Anxiety F41.9 [facility] [id number] [place] [address] 52839- 9958 Aug, Anxiety F41.9 [facility] [address] [address] 79[address] Aug, Unspecified episodic mood disorder F39 ; Anxiety disorder, unspecified F41.9 and Unspecified personality disorder F60.9 [facility] [address], [place] [address] 9666 Jul, Anxiety F41.9 [facility] [id number] [place] [address] 36593- 5481 Jun, Unspecified episodic mood disorder F39 ; Anxiety disorder, unspecified F41.9 and Unspecified personality disorder F60.9 [facility] [id number] [place] [address] 49870- 7242 Jun, Anxiety disorder, unspecified F41.9 [facility] [id number] [place] [address] 39656- 7338 May, Unspecified episodic mood disorder F39 ; Anxiety disorder, unspecified F41.9 and Unspecified personality disorder F60.9 [facility] [id number] [place] [address] 32310- 9181 May, Anxiety disorder, unspecified F41.9 [facility] [id number] [place] [address] 22649- 0716 Apr, Anxiety disorder, unspecified F41.9 [facility] [id number] [place] [address] 77412- 8101 Apr, Unspecified episodic mood disorder F39 ; Anxiety disorder, unspecified F41.9 and Unspecified personality disorder F60.9 [facility] [id number] [place] [address] 18142- 7247 March, Anxiety disorder, unspecified F41.9 [facility] [address] [address] 4100 March, Unspecified episodic mood disorder F39 ; Anxiety disorder, unspecified F41.9 and Unspecified personality disorder F60.9 [facility] [address], [place] [address]- 6668 March, Anxiety disorder, unspecified F41.9 [facility] [id number] [place] [address] 65496- 0525 Feb, Unspecified episodic mood disorder F39 ; Anxiety disorder, unspecified F41.9 and Unspecified personality disorder F60.9 [facility] [id number] [place] [address] 23083- 5919 Feb, Unspecified episodic mood disorder F39 ; Anxiety disorder, unspecified F41.9 and Unspecified personality disorder F60.9 [facility] [id number] [place] [address] 27706- 1755 Feb, Anxiety disorder, unspecified F41.9 [facility] [id number] [place] [address] 41383- 8155 Jan, Unspecified episodic mood disorder F39 ; Anxiety disorder, unspecified F41.9 and Unspecified personality disorder F60.9 [facility] [id number] [place] [address] 25602- 7552 Jan, Anxiety F41.9 [facility] [id number] [place] [address] 15223- 4387 Jan, Anxiety disorder, unspecified F41.9 [facility] [id number] [place] [address] 97341- 6010 Dec, Unspecified episodic mood disorder F39 ; Anxiety disorder, unspecified F41.9 and Unspecified personality disorder F60.9 [facility] [id number] [place] [address] 90546- 7973 Dec, Anxiety F41.9 [facility] [id number] [place] [address] 40259- 3826 Dec, Anxiety disorder, unspecified F41.9 [facility] [id number] [place] [address] 20515- 0553 Dec, Unspecified episodic mood disorder F39 ; Anxiety disorder, unspecified F41.9 and Unspecified personality disorder F60.9 [facility] [id number] [place] [address] 27659- 8643 Nov, [facility] [id number] [place] [address] 88506- 4782 Nov, [facility] [id number] [place] [address] 17938- 2630 Nov, Unspecified episodic mood disorder F39 ; Anxiety disorder, unspecified F41.9 and Unspecified personality disorder F60.9 [facility] [id number] [place] [address] 00340- 8077 Nov, Anxiety disorder, unspecified F41.9 [facility] [id number] [place] [address] 11968- 3708 Oct, Unspecified episodic mood disorder F39 ; Anxiety disorder, unspecified F41.9 and Unspecified personality disorder F60.9 [facility] [id number] [place] [address] 88856- 4251 Oct, Vaginal yeast infection B37.3 [facility] [id number] [place] [address] 45306- 9867 Oct, [facility] [id number] [place] [address] 33011- 5458 Oct, Anxiety disorder, unspecified F41.9 [facility] [id number] [place] [address] 38886- 4728 Oct, Routine gynecological examination Z01.419 ; Screening for breast cancer Z12.31 and Vaginal yeast infection B37.3 [facility] [id number] [place] [address] 82287- 6657 Sep, Unspecified episodic mood disorder F39 ; Anxiety disorder, unspecified F41.9 and Unspecified personality disorder F60.9 [facility] [id number] [place] [address] 18718- 9976 Sep, [facility] [id number] [place] [address] 01829- 5234 Sep, Anxiety disorder, unspecified F41.9 [facility] [id number] [place] [address] 69621- 4658 Sep, Bronchitis J40 and Stress incontinence of urine N39.3 [facility] [facility] [address] 72799- 9410 Sep, Stress incontinence of urine N39.3 ; Bronchitis J40 and Anxiety F41.9 [facility] [id number] [place] [address] 73006- 8385 Sep, [facility] [id number] [place] [address] 56005- 5109 Sep, Unspecified episodic mood disorder F39 ; Anxiety disorder, unspecified F41.9 and Unspecified personality disorder F60.9 [facility] [id number] [place] [address] 06253- 5385 Aug, Anxiety F41.9 ; Stress incontinence of urine N39.3 and Encounter for immunization Z23 [facility] [id number] [place] [address] 57524- 4508 Aug, Anxiety disorder, unspecified F41.9 [facility] [id number] [place] [address] 30028- 9162 Jul, Unspecified episodic mood disorder F39 ; Anxiety disorder, unspecified F41.9 and Unspecified personality disorder F60.9 [facility] [id number] [place] [address] 14908- 5425 Jul, [facility] [id number] [place] [address] 69597- 9462 Jul, Unspecified episodic mood disorder F39 ; Anxiety disorder, unspecified F41.9 and Unspecified personality disorder F60.9 [facility] [id number] [place] [address] 45123- 2979 Jul, Anxiety disorder, unspecified F41.9 [facility] [address] [address]- 5192 Jun, Unspecified episodic mood disorder F39 ; Anxiety disorder, unspecified F41.9 and Unspecified personality disorder F60.9 [facility] [address], [place] [address]- 0250 Jun, Anxiety disorder, unspecified F41.9 [facility] [id number] [place] [address] 20942- 1558 Jun, Unspecified episodic mood disorder F39 ; Anxiety disorder, unspecified F41.9 and Unspecified personality disorder F60.9 [facility] [id number] [place] [address] 17815- 0646 Jun, [facility] [id number] [place] [address] 20635- 7184 May, Anxiety disorder, unspecified F41.9 [facility] [id number] [place] [address] 37726- 5321 May, Unspecified episodic mood disorder F39 ; Anxiety disorder, unspecified F41.9 and Unspecified personality disorder F60.9 [facility] [id number] [place] [address] 71195- 9199 Apr, Anxiety disorder, unspecified F41.9 [facility] [address], [place] [address]- 8712 March, Unspecified episodic mood disorder F39 ; Anxiety disorder, unspecified F41.9 and Unspecified personality disorder F60.9 [facility] [id number] [place] [address] 95612- 1461 March, Bronchitis J40 [facility] [id number] [place] [address] 98106- 3474 March, Unspecified episodic mood disorder F39 ; Anxiety disorder, unspecified F41.9 and Unspecified personality disorder F60.9 [facility] [address], [place] [address]- 9270 Feb, [facility] [address], [place] [address]- 5750 Feb, Unspecified episodic mood disorder F39 ; Anxiety disorder, unspecified F41.9 and Unspecified personality disorder F60.9 [facility] [address], [place] [address]- 9883 Feb, Bronchitis J40 [facility] [id number] [place] [address] 20816- 4840 Feb, Unspecified episodic mood disorder F39 ; Anxiety disorder, unspecified F41.9 and Unspecified personality disorder F60.9 [facility] [address] [address]- 4735 Jan, Unspecified episodic mood disorder F39 ; Anxiety disorder, unspecified F41.9 and Unspecified personality disorder F60.9 [facility] [address], [place] [address]- 8627 Jan, Bronchitis J40 [facility] [id number] [place] [address] 88538- 7540 Jan, Unspecified episodic mood disorder F39 ; Anxiety disorder, unspecified F41.9 and Unspecified personality disorder F60.9 [facility] [address], [place] [address]- 4217 Dec, Anxiety F41.9 [facility] [address], [place] [address]- 7534 Dec, Unspecified episodic mood disorder F39 ; Anxiety disorder, unspecified F41.9 and Unspecified personality disorder F60.9 [place] [id number] [id number] Dec, [facility] [id number] [address]- 5369 Dec, Unspecified episodic mood disorder F39 ; Anxiety disorder, unspecified F41.9 and Unspecified personality disorder F60.9 [facility] [address], [place] [address]- 0186 Nov, [facility] [id number] [place] [address] 46534- 1640 Oct, Unspecified episodic mood disorder F39 ; Anxiety disorder, unspecified F41.9 and Unspecified personality disorder F60.9 [facility] [id number] [place] [address] 22270- 5230 Oct, [facility] [address], [place] [address] Oct, Acute upper respiratory infection, unspecified J06.9 ; Other viral agents as the cause of diseases classified elsewhere B97.89 and Cough R05 [facility] [address], [place] [address]- 9770 Aug, Unspecified episodic mood disorder F39 ; Anxiety disorder, unspecified F41.9 and Unspecified personality disorder F60.9 [facility] [address], [place] [address]- 5230 Aug, [facility] [id number] [place] [address] 83227- 6571 Aug, [facility] [address], [place] [address]- 2307 Aug, [facility] [id number] [place] [address] 14876- 3391 Aug, Visit for TB skin test Z11.1 [facility] [address], [place] [address]- 7598 Jul, [facility] [id number] [place] [address] 14226- 8886 Jul, [facility] [id number] [place] [address] 39892- 2893 Jul, [facility] [id number] [address]- 7089 Jul, [facility] [id number] [place] [address] 84918- 8908 Jul, [facility] [id number] [place] [address] 982268- 7835 Jul, Unspecified episodic mood disorder F39 ; Anxiety disorder, unspecified F41.9 and Unspecified personality disorder F60.9 [facility] [id number] [place] [address] 15930- 9314 Jun, [facility] [id number] [place] [address] 08809- 9485 Jun, Unspecified episodic mood disorder F39 ; Anxiety disorder, unspecified F41.9 and Unspecified personality disorder F60.9 [facility] [id number] [place] [address] 39241- 3264 Jun, [facility] [id number] [place] [address] 00902- 5908 May, Unspecified episodic mood disorder F39 ; Anxiety disorder, unspecified F41.9 and Unspecified personality disorder F60.9 [facility] [id number] [place] [address] 37776- 4756 May, [facility] [id number] [place] [address] 56229- 5736 May, [facility] [id number] [place] [address] 12895- 5025 May, Edema, unspecified R60.9 [facility] [address], [place] [address]- 3146 Apr, [facility] [id number] [place] [address] 23026- 1790 Apr, Unspecified episodic mood disorder F39 ; Anxiety disorder, unspecified F41.9 and Unspecified personality disorder F60.9 [facility] [id number] [place] [address] 27672- 8862 Apr, Anxiety F41.9 [facility] [id number] [place] [address] 03767- 8200 March, Unspecified episodic mood disorder F39 ; Anxiety disorder, unspecified F41.9 and Unspecified personality disorder F60.9 [facility] [id number] [place] [address] 99427- 4290 March, Unspecified episodic mood disorder F39 ; Anxiety disorder, unspecified F41.9 and Unspecified personality disorder F60.9 [facility] [id number] [place] [address] 23552- 4632 Feb, Anxiety F41.9 [facility] [id number] [place] [address] 28782- 1551 Feb, Unspecified episodic mood disorder F39 ; Anxiety disorder, unspecified F41.9 and Unspecified personality disorder F60.9 [facility] [id number] [place] [address] 00567- 7202 Jan, Unspecified episodic mood disorder F39 ; Anxiety disorder, unspecified F41.9 and Unspecified personality disorder F60.9 [facility] [id number] [place] [address] 56902- 3533 Jan, Unspecified episodic mood disorder F39 ; Anxiety disorder, unspecified F41.9 and Unspecified personality disorder F60.9 [facility] [id number] [place] [address] 01866- 2503 Jan, Edema, unspecified R60.9 [facility] [address] [address]- 8507 Dec, [facility] [id number] [place] [address] 92550- 7692 Dec, [facility] [address], [place] [address]- 7446 Dec, [facility] [id number] [address]- 6313 Dec, Unspecified episodic mood disorder F39 ; Anxiety disorder, unspecified F41.9 and Unspecified personality disorder F60.9 [facility] [address], [place] [address]- 3501 Nov, [facility] [id number] [place] [address] 79302- 5603 Nov, Unspecified episodic mood disorder F39 ; Anxiety disorder, unspecified F41.9 and Unspecified personality disorder F60.9 [facility] [id number] [place] [address] 52508- 9310 Oct, Unspecified episodic mood disorder F39 ; Anxiety disorder, unspecified F41.9 and Unspecified personality disorder F60.9 [facility] [id number] [place] [address] 21291- 6411 Oct, Unspecified episodic mood disorder F39 ; Anxiety disorder, unspecified F41.9 and Unspecified personality disorder F60.9 [facility] [id number] [place] [address] 21463- 3281 Sep, Unspecified episodic mood disorder F39 ; Anxiety disorder, unspecified F41.9 and Unspecified personality disorder F60.9 [facility] [address], [place] [address]- 7756 Sep, Encounter for immunization Z23 [facility] [id number] [place] [address] 86299- 6117 Sep, Edema of left lower extremity R60.0 [facility] [id number] [place] [address] 36327- 9892 Aug, Unspecified episodic mood disorder F39 ; Anxiety disorder, unspecified F41.9 and Unspecified personality disorder F60.9 [facility] [address] [address]- 3793 Aug, [facility] [id number] [place] [address] 17821- 1313 Aug, Edema of left lower extremity R60.0 [facility] [id number] [place] [address] 98837- 1442 Aug, [facility] [id number] [place] [address] 313356- 0447 Aug, Unspecified episodic mood disorder F39 ; Anxiety disorder, unspecified F41.9 and Unspecified personality disorder F60.9 [facility] [id number] [place] [address] 87011- 8634 Jul, Unspecified episodic mood disorder 296.90 ; Anxiety disorder , unspecified 300.00 and Unspecified personality disorder 301.9 [facility] [id number] [place] [address] 97480- 7430 Jul, Unspecified episodic mood disorder 296.90 ; Anxiety disorder , unspecified 300.00 and Unspecified personality disorder 301.9 [facility] [id number] [place] [address] 65009- 4389 Jul, [facility] [id number] [place] [address] 07483- 6063 Jun, Unspecified episodic mood disorder 296.90 ; Anxiety disorder , unspecified 300.00 and Unspecified personality disorder 301.9 [facility] [id number] [place] [address] 82058- 7250 May, Unspecified episodic mood disorder 296.90 ; Anxiety disorder , unspecified 300.00 and Unspecified personality disorder 301.9 [facility] [address], [place] [address]- 5862 May, Anxiety disorder, unspecified 300.00 [facility] [id number] [place] [address] 10573- 6077 May, Anxiety disorder, unspecified 300.00 and Edema 782.3 [facility] [id number] [place] [address] 27727- 4259 May, Unspecified episodic mood disorder 296.90 ; Anxiety disorder , unspecified 300.00 and Unspecified personality disorder 301.9 [facility] [address], [place] [address]- 8924 Apr, [facility] [address], [place] [address]- 5320 Apr, Unspecified episodic mood disorder 296.90 ; Anxiety disorder , unspecified 300.00 and Personality disorder, unspecified 301.9 [facility] [id number] [address]- 5938 Apr, Unspecified episodic mood disorder 296.90 ; Anxiety disorder , unspecified 300.00 and Unspecified personality disorder 301.9 [facility] [address], [place] [address]- 1872 March, [facility] [id number] [address]- 6488 March, Unspecified episodic mood disorder 296.90 ; Anxiety disorder , unspecified 300.00 and Unspecified personality disorder 301.9 [facility] [address], [place] [address]- 3976 March, Unspecified episodic mood disorder 296.90 ; Anxiety disorder 300.00 and Unspecified personality disorder 301.9 [facility] [address], [place] [address]- 3755 March, [facility] [address], [place] [address]- 8639 March, [facility] [address], [place] [address]- 5237 Feb, [facility] [address], [place] [address]- 9426 Feb, [facility] [address] [address]- 0689 Feb, [facility] [address], [place] [address]- 9178 Jan, [facility] [id number] [place] [address]- 2546 Jan, [facility] [place] [facility] [address] [id number] [place] [address]- 8523 Jan, [facility] [place] [facility] [address] [facility] [id number] [place] [address]- 2546 Jan, [facility] [place] [facility] [address] [facility] [id number] [place] [address]- 7974 Jan, [facility] [place] [facility] [address] [facility] [id number] [place] [address]- 3018 Jan, [facility] [place] [facility] [address] [facility] [id number] [place] [id number] Jan, [facility] [place] [facility] [address] [facility] [id number] [place] [address]- 9643 Jan, [facility] [place] [facility] [address] [facility] [id number] [place] [address]- 1582 Jan, [facility] [place] [facility] [address] [facility] [id number] [place] [address]- 0096 Jan, [facility] [place] [facility] [address] [facility] [id number] [place] [address]- 3780 Jan, 2014 [facility] [place] [facility] [address] [facility] [id number] [place] [address] Jan, [facility] [place] [facility] [address] [id number] [place] [address] Jan, [facility] [place] [facility] [address] [facility] [id number] [place] [address] Jan, [facility] [place] [facility] [address] [id number] [place] [address] Jan, [facility] [place] [facility] [address] [facility] [id number] [place] [address] Jan, [facility] [place] [facility] [address] [facility] [id number] [place] [address] 4688 Dec, [facility] [address] [id number] [place] [address] 4902 Dec, 2014 [facility] [place] [facility] [address] [id number] [place] [address] 9897 Dec, 2014 [facility] [place] [facility] [address] [id number] [place] [address] 3850 Dec, [facility] [place] [facility] [address] [id number] [place] [address] 7253 Nov, [facility] [place] [facility] [address] [id number] [place] [address]- 6196 Nov, [facility] [place] [facility] [address] [id number] [place] [address] 9553 Nov, [facility] [place] [facility] [address] [id number] [place] [address]- 9099 Nov, [facility] [place] [facility] [address] [id number] [place] [address] 3108 Oct, [facility] [place] [facility] [address] [id number] [place] [address]- 2875 Oct, [facility] [place] [facility] [address] [id number] [place] [address]- 2210 Oct, [facility] [place] [facility] [address] [id number] [address]873 Oct, [facility] [place] [facility] [address] [id number] [address]- 6253 Oct, [facility] [place] [facility] [address] [id number] [place] [address]- 7693 Oct, [facility] [place] [facility] [address] [id number] [place] [address]- 1447 Oct, [facility] [place] [facility] [address] [id number] [place] [address]- 4964 Oct, [facility] [place] [facility] [address] [id number] [place] [address]- 2853 Oct, [facility] [place] [facility] [address] [id number] [place] [address]- 2305 Oct, [facility] [place] [facility] [address] [id number] [place] [address]- 8917 Oct, [facility] [place] [facility] [address] [id number] [place] [address]- 3789 Oct, [facility] [place] [facility] [address] [id number] [place] [address]- 8148 Oct, [facility] [place] [facility] [address] [id number] [place] [address]- 7763 Oct, [facility] [place] [facility] [address] [id number] [place] [address]- 2308 Oct, [facility] [place] [facility] [address] [id number] [place] [address]- 0765 Oct, [facility] [place] [facility] [address] [id number] [place] [address]- 5131 Sep, [facility] [place] [facility] [address] [id number] [place] [address]- 5633 Sep, [facility] [place] [facility] [address] [id number] [place] [address]- 2387 Sep, [facility] [place] [facility] [address] [id number] [place] [address]- 0344 Sep, [facility] [place] [facility] [address] [id number] [place] [address]- 7204 Sep, [facility] [place] [facility] [address] [id number] [place] [address]- 6957 Sep, [facility] [place] [facility] [address] [id number] [place] [address]- 2234 Sep, [facility] [place] [facility] [address] [id number] [place] [address]- 6114 Sep, [facility] [place] [facility] [address] [id number] [place] [address]- 0077 Sep, [facility] [place] [facility] [address] [id number] [place] [address]- 6366 Sep, [facility] [place] [facility] [address] [id number] [place] [address]- 5052 Aug, [facility] [place] [facility] [address] [id number] [place] [address]- 7429 30 Aug, 2014 [facility] [place] [facility] [address] [id number] [place] [address]- 6904 Aug, [facility] [place] [facility] [address] [id number] [place] [address]- 0373 Aug, [facility] [place] [facility] [address] [id number] [place] [address]- 3281 Aug, [facility] [place] [facility] [address] [id number] [place] [address]- 9181 Aug, [facility] [place] [facility] [address] [id number] [place] [address]- 1512 Aug, [facility] [place] [facility] [address] [id number] [place] [address]- 3460 Aug, [facility] [place] [facility] [address] [id number] [place] [address]- 2427 29 Jul, 2014 [facility] [place] [facility] [address] [id number] [place] [address]- 2783 29 Jul, 2013 [facility] [place] [facility] [address] [id number] [place] [address]- 2464 05 Sep2013 [facility] [place] [facility] [address] [id number] [place] [address]- 0779 Sep, 2013 [facility] [place] [facility] [address] [id number] [place] [address]- 8170 05 Sep, 2013 [facility] [place] [facility] [address] [id number] [place] [address]- 3074 Jul, [facility] [place] [facility] [address] [id number] [place] [address] Jun, [facility] [place] [facility] [address] [id number] [place] [address]- 3393 Jun, [facility] [place] [facility] [address] [id number] [place] [address]- 5946 May, [facility] [place] [facility] [address] [id number] [place] [address]- 8643 May, [facility] [place] [facility] [address] [id number] [place] [address]- 7256 May, [facility] [place] [facility] [address] [id number] [place] [address]- 3984 May, [facility] [place] [facility] [address] [id number] [place] [address]- 1604 May, [facility] [place] [facility] [address] [id number] [place] [address]- 4111 May, [facility] [place] [facility] [address] [id number] [place] [address]- 1681 May, [facility] [place] [facility] [address] [id number] [place] [address]- 4774 May, [facility] [place] [facility] [address] [id number] [place] [address]- 5682 Apr, [facility] [place] [facility] [address] [id number] [place] [address]- 9129 Apr, [facility] [place] [facility] [address] [id number] [place] [address]- 4429 March, [facility] [place] [facility] [address] [id number] [place] [address]- 8638 March, [facility] [place] [facility] [address] [id number] [place] [address]- 8345 Feb, [facility] [place] [facility] [address] [id number] [place] [address]- 5191 Feb, [facility] [address] [id number] [place] [address]- 7060 Feb, [facility] [place] [facility] [address] [id number] [place] [address]- 8036 Feb, [facility] [address] [id number] [place] [address]- 3956 Feb, [facility] [place] [facility] [address] [id number] [place] [address]- 9661 Feb, [facility] [address] [id number] [place] [address]- 8046 Feb, [facility] [place] [facility] [address] [id number] [place] [address]- 6315 Feb, [facility] [address] [id number] [place] [address]- 1384 Feb, [facility] [address] [id number] [place] [address]- 4566 Feb, [facility] [place] [facility] [address] [id number] [place] [address]- 5852 Jan, [facility] [address] [id number] [place] [address]- 8886 Jan, [facility] [place] [facility] [address] [id number] [place] [address]- 2990 Jan, [facility] [place] [facility] [address] [id number] [place] [address]- 5361 Jan, [facility] [place] [facility] [address] [id number] [place] [address]- 7743 Jan, [facility] [place] [facility] [address] [id number] [place] [address]- 7421 Dec, [facility] [place] [facility] [address] [id number] [place] Dec, [facility] [place] [facility] [address] [id number] [place] [address]- 5371 Dec, [facility] [place] [facility] [address] [id number] [place] [address]- 6093 Dec, [facility] [place] [facility] [address] [id number] [place] [address]- 8749 Dec, [facility] [place] [facility] [address] [id number] [place] [address]- 6815 Dec, [facility] [place] [facility] [address] [id number] [place] [address]- 8382 Nov, [facility] [place] [facility] [address] [id number] [place] [address]- 7558 Nov, [facility] [place] [facility] [address] [id number] [place] [address]- 3284 Nov, [facility] [place] [facility] [address] [id number] [place] [address]- 2911 Nov, [facility] [place] [facility] [address] [id number] [place] [address]- 6682 Nov, [facility] [place] [facility] [address] [id number] [place] [address]- 1615 Nov, [facility] [place] [facility] [address] [id number] [address]- 5886 Nov, [facility] [place] [facility] [address] [id number] [address]- 2032 Nov, [facility] [place] [facility] [address] [id number] [place] [address]- 5694 Oct, [facility] [place] [facility] [address] [id number] [place] [address]- 9166 Oct, [facility] [place] [facility] [address] [id number] [place] [address]- 6645 Oct, [facility] [place] [facility] [address] [id number] [place] [address]- 4999 06 Oct, 2012 [facility] [address] [id number] [place] [address]- 0803 05 Oct, 2012 [facility] [place] [facility] [address] [id number] [place] [address]- 6492 05 Oct, 2013 [facility] [address] [id number] [place] [address]- 0173 Oct, [facility] [place] [facility] [address] [id number] [place] [address]- 0387 Oct, [facility] [place] [facility] [address] [id number] [place] [address]- 3282 Sep, [facility] [place] [facility] [address] [id number] [place] [address]- 4313 Sep, [facility] [place] [facility] [address] [facility] [id number] [place] [address]- 0510 14 Sep, 2013 [facility] [place] [facility] [address] [id number] [place] [address]- 6453 14 Sep, 2013 [facility] [place] [facility] [address] [facility] [id number] [place] [address]- 0651 Sep, [facility] [place] [facility] [address] [facility] [id number] [place] [address]- 1981 07 Sep, 2013 [facility] [place] [facility] [address] [facility] [id number] [place] [address]- 2882 Sep, [facility] [place] [facility] [address] [facility] [id number], [place] [address]- 3140 Sep, [facility] [place] [facility] [address] [id number] [place] [address]- 6014 Aug, [facility] [place] [facility] [address] [facility] [id number] [place] [address]64 Aug, [facility] [place] [facility] [address] [facility] [id number] [address]- 1080 Aug, [facility] [place] [facility] [address] [id number] [place] [address]- 1345 Jul, [facility] [address] [id number] [place] [address]- 7463 Jun, [facility] [address] [id number] [place] [address]- 5321 Jun, [facility] [address] [id number] [place] [address]- 1269 Jun, [facility] [address] [id number] [place] [address]- 8264 Jun, [facility] [address] [id number] [place] [address]- 8033 Jun, [facility] [address] [id number] [place] [address]- 6834 May, [facility] [address] [id number] [place] [address]- 5935 May, [facility] [address] [id number] [place] [address]- 1702 Apr, [facility] [address] [id number] [place] [address]- 5029 Apr, [facility] [address] [id number] [place] [address]- 5959 March, [facility] [address] [id number] [place] [address]- 4261 March, [facility] [address] [id number] [place] [address]- 1000 March, [facility] [place] [facility] [address] [id number] [place] [address]- 8577 March, [facility] [place] [facility] [address] [id number] [place] [address]- 9092 March, [facility] [address] [id number] [place] [address]- 6115 Feb, [facility] [address] [id number] [place] [address]- 3507 Feb, [facility] [address] [id number] [place] [address]- 0066 Feb, [facility] [address] [id number] [place] [address]- 4658 Jan, [facility] [address] [id number] [place] [address]- 4905 Dec, [facility] [address] [id number] [place] [address]- 1849 Dec, [facility] [address] [id number] [place] [address]- 0335 Dec, [facility] [address] [facility] [id number] [place] [address]- 1491 Dec, [facility] [address] [id number] [place] [address]- 3131 Nov, [facility] [address] [id number] [place] [address]- 5876 Nov, [facility] [address] [facility] [id number] [place] [address]- 7473 Nov, [facility] [address] [id number] [place] [address]- 0902 Nov, [facility] [address] [id number] [place] [address]- 4868 Oct, [facility] [place] [facility] [address] [id number] [place] [address]- 9075 Oct, [facility] [place] [facility] [address] [facility] [id number] [place] [address]- 6751 Oct, [facility] [address] [facility] [id number] [place] [address]- 1186 Oct, [facility] [place] [facility] [address] [id number] [place] [address]- 5688 14 Sep, 2012 [facility] [place] [facility] [address] [id number] [place] [address]- 7340 14 Sep, 2012 [facility] [place] [facility] [address] [id number] [place] [address]- 8846 13 Sep, 2012 [facility] [place] [facility] [address] [id number] [place] [address]- 5830 13 Sep, 2012 [facility] [place] [facility] [address] [id number] [place] [address]- 7455 08 Sep, 2012 [facility] [place] [facility] [address] [id number] [place] [address]- 7783 Sep, [facility] [place] [facility] [address] [id number] [place] [address]- 0406 Aug, [facility] [place] [facility] [address] [id number] [place] [address]- 5339 Aug, [facility] [place] [facility] [address] [id number] [place] [address]- 5173 Aug, [facility] [place] [facility] [address] [id number] [place] [address]- 9487 Jul, [facility] [place] [facility] [address] [id number] [place] [address]- 2721 04 Jul, 2012 [facility] [place] [facility] [address] [id number] [place] [address]- 9743 16 Jun, 2012 [facility] [place] [facility] [address] [id number] [place] [address]- 0850 30 May, 2012 [facility] [place] [facility] [address] [id number] [place] [address]- 4366 May, [facility] [place] [facility] [address] [id number] [place] [address]- 2546 Apr, [facility] [place] [facility] [address] [id number] [place] [address]- 7636 Apr, [facility] [place] [facility] [address] [id number] [place] [address]- 4341 March, [facility] [place] [facility] [address] [id number] [place] [address]- 7840 March, [facility] [place] [facility] [address] [facility] [id number] [place] [address]- 5695 Feb, [facility] [place] [facility] [address] [id number] [place] [address]- 4430 16 Feb, 2012 [facility] [place] [facility] [address] [id number] [place] [address]- 2402 Feb, [facility] [place] [facility] [address] [facility] [id number] [place] [address]- 3329 Feb, [facility] [place] [facility] [address] [facility] [id number] [place] [address]- 9585 Jan, [facility] [place] [facility] [address] [facility] [id number] [place] [address]- 0844 Jan, [facility] [place] [facility] [address] [place] [id number] [place] [address]- 5869 29 Dec, 2011 [facility] [place] [facility] [address] [facility] [id number] [place] [address]- 3757 28 Dec, 2011 [facility] [place] [facility] [address] [place] [id number] [place] [address]- 6627 Dec, [facility] [place] [facility] [address] [facility] [id number] [place] [address]- 4995 23 Dec, 2011 [facility] [place] [facility] [address] [facility] [id number] [place] [address]- 2424 20 Dec, 2011 [facility] [place] [facility] [address] [facility] [id number] [place] [address]- 8724 15 Dec, 2011 [facility] [place] [facility] [address] [facility] [id number] [place] [address]- 1893 10 Dec, 2011 [facility] [place] [facility] [address] [id number] [place] [address]- 1228 09 Dec, 2011 [facility] [address] [id number] [place] [address]- 0091 Dec, [facility] [place] [facility] [address] [id number] [place] [address]- 2546 Dec, [facility] [place] [facility] [address] [id number] [place] [address]- 7476 Dec, [facility] [place] [facility] [address] [id number] [place] [address]- 8316 Dec, [facility] [place] [facility] [address] [id number] [place] [address]- 7043 Dec, [facility] [address] [id number] [place] [address]- 5280 Nov, [facility] [address] [id number] [place] [address]- 8299 Nov, [facility] [address] [id number] [place] [address]- 2798 Nov, [facility] [address] [facility] [id number] [place] [address] Nov, [facility] [address] [facility] [id number] [place] [address] Nov, [facility] [address] [id number] [place] [address] Nov, [facility] [place] [facility] [address] [id number] [place] [address] Oct, [facility] [place] [facility] [address] [id number] [place] [address] Oct, [facility] [place] [facility] [address] [id number] [place] [address] Sep, [facility] [place] [facility] [address] [id number] [address] Sep, [facility] [address] [facility] [id number] [address] Sep, [facility] [address] [facility] [id number] [address] Sep, [facility] [address] [facility] [id number] [address] Sep, [facility] [address] [facility] [id number] [address] March, [facility] [address] [facility] [id number] [place] [address] Oct, [facility] [address] [facility] [id number] [address] Oct, [facility] [id number], [place] [address] Oct, [facility] [address] [id number], [place] [address] 24 Sep, 2010 [facility] [address] [id number], [place] [address] Sep, [facility] [address] [id number], [place] [address] Sep, [facility] [address] [id number], [place] [address] 16 Sep, 2010 [facility] [address] [id number], [place] [address] Aug, [facility] [address] [facility] [id number], [place] [address] Oct, [facility] [address] [facility] [id number] [address] Oct, [facility] [address] [id number] [address] May, IMMUNIZATIONS Vaccine Route Administration Date Status FLULAVAL QUAD 0.5ML (6 MO AND UP) 2017 IM Intramuscular Oct 17, 2018 Administered SOCIAL HISTORY Never Assessed REASON FOR VISIT Flu shot-BINH hilliard PLAN OF CARE VITAL SIGNS MEDICATIONS Unknown Medications RESULTS No Results PROCEDURES Procedure Date Ordered Result Body Site FLULAVAL QUAD 0.5ML (6 MO AND UP) 2018 Oct 17, 2018 SINGLE IMMUNIZATION ADMIN Oct 17, 2018 INSTRUCTIONS MEDICATIONS ADMINISTERED No Known Medications MEDICAL (GENERAL) HISTORY Type Description Date Medical History hypertension Medical History panic attacks Surgical History cholecystectomy 2008 Hospitalization History surgery
--- OUTSIDE RECORDS SUMMARY | 2018-12-11 10:13 | XMS REPORT ---
Author Author LEIDA ANDINO Organization [facility] Address [address] [place] [address] Care Team Providers Care End Polisher Name Role Phone LEIDA ANDINO Unavailable PROBLEMS Type Condition ICD9-CM Code [id number] Code Onset Dates Condition Status SNOMED Code Problem Stress incontinence of urine N39.3 Active 65169025 Problem Anxiety F41.9 Active 89654539 Problem Anxiety disorder, unspecified F41.9 Active 649069775 Problem Unspecified episodic mood disorder F39 Active 706443378 Problem Unspecified personality disorder F60.9 Active [id number] ALLERGIES No Information ENCOUNTERS Encounter Location Date Diagnosis [place] [address] [address]- [address] Sep, [place] [address] [place] [id number] [place] [address] 35730- 5627 Sep, Anxiety F41.9 [place] [address] 49830- 8778 Aug, Anxiety F41.9 [place] [address] [place] [id number] [place] [address] 59865- 2832 Aug, Unspecified episodic mood disorder F39 ; Anxiety disorder, unspecified F41.9 and Unspecified personality disorder F60.9 [place] [address] [place] [id number] [place] [address] 65365- 6149 Jul, Anxiety F41.9 [place] [address] [place] [id number] [place] [address] 17430- 0611 Jun, Unspecified episodic mood disorder F39 ; Anxiety disorder, unspecified F41.9 and Unspecified personality disorder F60.9 [place] [address] 69665- 1188 Jun, Anxiety disorder, unspecified F41.9 [facility] [address] [place] [address] 41985- 9896 May, Unspecified episodic mood disorder F39 ; Anxiety disorder, unspecified F41.9 and Unspecified personality disorder F60.9 [facility] [address] [place] [id number] [place] [address] 29373- 4461 May, Anxiety disorder, unspecified F41.9 [facility] [address] [place] [id number] [place] [address] 46889- 1337 Apr, Anxiety disorder, unspecified F41.9 [place] [address] [place] [id number] [place] [address] 49144- 0332 Apr, Unspecified episodic mood disorder F39 ; Anxiety disorder, unspecified F41.9 and Unspecified personality disorder F60.9 [facility] [address] [place] [id number] [place] [address] 43728- 7679 March, Anxiety disorder, unspecified F41.9 [facility] [address] [place] [id number] [place] [address] 23986- 5130 March, Unspecified episodic mood disorder F39 ; Anxiety disorder, unspecified F41.9 and Unspecified personality disorder F60.9 [facility] [address] [place] [address] 79312- 3113 March, Anxiety disorder, unspecified F41.9 [facility] [address] [place] [id number] [place] [address] 30258- 4923 Feb, Unspecified episodic mood disorder F39 ; Anxiety disorder, unspecified F41.9 and Unspecified personality disorder F60.9 [facility] [address] [place] [id number] [place] [address] 19548- 1083 Feb, Unspecified episodic mood disorder F39 ; Anxiety disorder, unspecified F41.9 and Unspecified personality disorder F60.9 [facility] [address] [place] [address] 86080- 5745 Feb, Anxiety disorder, unspecified F41.9 [facility] [address] [address] 4087 Jan, Unspecified episodic mood disorder F39 ; Anxiety disorder, unspecified F41.9 and Unspecified personality disorder F60.9 [facility] [address] [address]- 4813 Jan, Anxiety F41.9 [facility] [address] [place] [id number] [place] [address] 43234- 5186 Jan, Anxiety disorder, unspecified F41.9 [facility] [address] [place] [address] 61961- 7222 Dec, Unspecified episodic mood disorder F39 ; Anxiety disorder, unspecified F41.9 and Unspecified personality disorder F60.9 [facility] [address] [place] [address] 70195- 2757 Dec, Anxiety F41.9 [facility] [address] [place] [id number] [place] [address] 90271- 9755 Dec, Anxiety disorder, unspecified F41.9 [facility] [address] [place] [id number] [place] [address] 83026- 5575 Dec, Unspecified episodic mood disorder F39 ; Anxiety disorder, unspecified F41.9 and Unspecified personality disorder F60.9 [facility] [address] [address]- 2879 Nov, [facility] [address] [address]- 6687 Nov, [facility] [address] [place] [address] 22770- 7798 Nov, Unspecified episodic mood disorder F39 ; Anxiety disorder, unspecified F41.9 and Unspecified personality disorder F60.9 [facility] [address] [address]- 3303 Nov, Anxiety disorder, unspecified F41.9 [place] [address] [place] [id number] [place] [address] 20282- 2950 Oct, Unspecified episodic mood disorder F39 ; Anxiety disorder, unspecified F41.9 and Unspecified personality disorder F60.9 [place] [address] [place] [id number] [place] [address] 89244- 5360 Oct, Vaginal yeast infection B37.3 [place] [address] [place] [id number] [place] [address] 96022- 1798 Oct, [place] [address] [place] [id number] [place] [address] 54613- 7054 Oct, Anxiety disorder, unspecified F41.9 [place] [address] [place] [id number] [place] [address] 39240- 5273 Oct, Routine gynecological examination Z01.419 ; Screening for breast cancer Z12.31 and Vaginal yeast infection B37.3 [place] [address] [place] [id number] [place] [address] 09021- 4646 Sep, Unspecified episodic mood disorder F39 ; Anxiety disorder, unspecified F41.9 and Unspecified personality disorder F60.9 [place] [address] [place] [id number] [place] [address] 17207- 3714 Sep, [place] [address] [place] [id number] [place] [address] 80536- 1963 Sep, Anxiety disorder, unspecified F41.9 [place] [address] [place] [id number] [place] [address] 43409- 5465 Sep, Bronchitis J40 and Stress incontinence of urine N39.3 [place] [address] [place] [id number] [place] [address] 34809- 5954 Sep, Stress incontinence of urine N39.3 ; Bronchitis J40 and Anxiety F41.9 [place] [address] [place] [id number] [place] [address] 64104- 7036 Sep, [place] [address] [place] [address]- 1283 Sep, Unspecified episodic mood disorder F39 ; Anxiety disorder, unspecified F41.9 and Unspecified personality disorder F60.9 [place] [address] [place] [id number] [place] [address] 11108- 9379 Aug, Anxiety F41.9 ; Stress incontinence of urine N39.3 and Encounter for immunization Z23 [place] [address] 44103- 7214 Aug, Anxiety disorder, unspecified F41.9 [place] [address] [place] [id number] [place] [address] 55477- 6656 Jul, Unspecified episodic mood disorder F39 ; Anxiety disorder, unspecified F41.9 and Unspecified personality disorder F60.9 [place] [address] [place] [id number] [place] [address] 92614- 7992 Jul, [place] [address] 83377- 9330 Jul, Unspecified episodic mood disorder F39 ; Anxiety disorder, unspecified F41.9 and Unspecified personality disorder F60.9 [place] [address] [place] [id number] [place] [address] 54241- 9319 Jul, Anxiety disorder, unspecified F41.9 [place] [address] [place] [id number] [place] [address] 25072- 2637 Jun, Unspecified episodic mood disorder F39 ; Anxiety disorder, unspecified F41.9 and Unspecified personality disorder F60.9 [place] [address] [place] [id number] [place] [address] 76260- 9330 Jun, Anxiety disorder, unspecified F41.9 [place] [address] [place] [id number] [place] [address] 82589- 6949 Jun, Unspecified episodic mood disorder F39 ; Anxiety disorder, unspecified F41.9 and Unspecified personality disorder F60.9 [place] [address] [place] [id number] [place] [address] 10152- 8631 Jun, [facility] [address] [address]- 5997 May, Anxiety disorder, unspecified F41.9 [facility] [address] [place] [address] 54374- 8002 May, Unspecified episodic mood disorder F39 ; Anxiety disorder, unspecified F41.9 and Unspecified personality disorder F60.9 [facility] [address] [place] [id number] [place] [address] 80532- 6003 Apr, Anxiety disorder, unspecified F41.9 [facility] [address] [place] [id number] [place] [address] 34779- 1011 March, Unspecified episodic mood disorder F39 ; Anxiety disorder, unspecified F41.9 and Unspecified personality disorder F60.9 [facility] [address] [place] [id number] [place] [address] 34142- 4646 March, Bronchitis J40 [facility] [address] [place] [address] 55936- 3960 March, Unspecified episodic mood disorder F39 ; Anxiety disorder, unspecified F41.9 and Unspecified personality disorder F60.9 [facility] [address] [address]- 6141 Feb, [facility] [address] [address]- 8499 Feb, Unspecified episodic mood disorder F39 ; Anxiety disorder, unspecified F41.9 and Unspecified personality disorder F60.9 [facility] [address] [place] [address] 45487- 3189 Feb, Bronchitis J40 [facility] [address] [place] [address] 19603- 4830 Feb, Unspecified episodic mood disorder F39 ; Anxiety disorder, unspecified F41.9 and Unspecified personality disorder F60.9 [facility] [address] [place] [address] [address]- 3756 Jan, Unspecified episodic mood disorder F39 ; Anxiety disorder, unspecified F41.9 and Unspecified personality disorder F60.9 [facility] [address] [address]- 7985 Jan, Bronchitis J40 [facility] [address] [address]- 3513 Jan, Unspecified episodic mood disorder F39 ; Anxiety disorder, unspecified F41.9 and Unspecified personality disorder F60.9 [facility] [address] [address]- 6761 Dec, Anxiety F41.9 [facility] [address] [address]- 4822 Dec, Unspecified episodic mood disorder F39 ; Anxiety disorder, unspecified F41.9 and Unspecified personality disorder F60.9 [facility] [id number] [id number] Dec, [facility] [address] [place] [id number] [address]- 8039 Dec, Unspecified episodic mood disorder F39 ; Anxiety disorder, unspecified F41.9 and Unspecified personality disorder F60.9 [facility] [address] [place] [id number] [address]- 2155 Nov, [facility] [address] [address]- 7515 Oct, Unspecified episodic mood disorder F39 ; Anxiety disorder, unspecified F41.9 and Unspecified personality disorder F60.9 [facility] [address] [place] [id number] [address]- 5740 Oct, [facility] [address] [place] [id number] [address] -[address]18 Oct, Acute upper respiratory infection, unspecified J06.9 ; Other viral agents as the cause of diseases classified elsewhere B97.89 and Cough R05 [facility] [address] [address]- 2014 Aug, Unspecified episodic mood disorder F39 ; Anxiety disorder, unspecified F41.9 and Unspecified personality disorder F60.9 [facility] [address] [address]- 5011 Aug, [facility] [address] [place] [id number] [place] [address] 17380- 2335 Aug, [facility] [address] [address]- 9045 Aug, [facility] [address] [place] [id number] [place] [address] 13823- 3750 Aug, Visit for TB skin test Z11.1 [facility] [address] [place] [id number] [place] [address] 26231- 1487 Jul, [facility] [address] [place] [id number] [address]- 6305 Jul, [facility] [address] [place] [address] 42763- 1291 Jul, [facility] [address] [address]- 4330 Jul, [facility] [address] [address]- 1245 Jul, [facility] [address] [address]- 2473 Jul, Unspecified episodic mood disorder F39 ; Anxiety disorder, unspecified F41.9 and Unspecified personality disorder F60.9 [facility] [address] [address]- 4904 Jun, [facility] [address] [address]- 1219 Jun, Unspecified episodic mood disorder F39 ; Anxiety disorder, unspecified F41.9 and Unspecified personality disorder F60.9 [facility] [address] [address]- 0264 Jun, [facility] [address] [place] [id number] [place] [address] 86168- 7732 May, Unspecified episodic mood disorder F39 ; Anxiety disorder, unspecified F41.9 and Unspecified personality disorder F60.9 [facility] [address] [place] [id number] [place] [address] 63885- 4308 May, [facility] [address] [place] [id number] [place] [address] 61491- 4372 May, [facility] [address] [place] [id number] [place] [address] 77624- 6765 May, Edema, unspecified R60.9 [facility] [address] [place] [id number] [place] [address] 03752- 2280 Apr, [facility] [address] [place] [id number] [place] [address] 52515- 8141 Apr, Unspecified episodic mood disorder F39 ; Anxiety disorder, unspecified F41.9 and Unspecified personality disorder F60.9 [facility] [address] [place] [address] 26304- 9484 Apr, Anxiety F41.9 [facility] [address] [place] [address] 69628- 4394 March, Unspecified episodic mood disorder F39 ; Anxiety disorder, unspecified F41.9 and Unspecified personality disorder F60.9 [facility] [address] [address]- 2762 March, Unspecified episodic mood disorder F39 ; Anxiety disorder, unspecified F41.9 and Unspecified personality disorder F60.9 [facility] [address] [address]- 8965 Feb, Anxiety F41.9 [facility] [address] [place] [id number] [address]- 2472 Feb, Unspecified episodic mood disorder F39 ; Anxiety disorder, unspecified F41.9 and Unspecified personality disorder F60.9 [facility] [address] [place] [id number] [place] [address] [id number]- 8961 Jan, Unspecified episodic mood disorder F39 ; Anxiety disorder, unspecified F41.9 and Unspecified personality disorder F60.9 [facility] [address] [place] [id number] [place] [address] 88840- 0626 Jan, Unspecified episodic mood disorder F39 ; Anxiety disorder, unspecified F41.9 and Unspecified personality disorder F60.9 [facility] [address] [place] [id number] [place] [address] 61528- 0474 Jan, Edema, unspecified R60.9 [facility] [address] [place] [id number] [place] [address] 34136- 6134 Dec, [facility] [address] [place] [id number] [place] [address] 16197- 6172 Dec, [facility] [address] [place] [id number] [place] [address] 96416- 7093 Dec, [facility] [address] [place] [id number] [place] [address] 27416- 6338 Dec, Unspecified episodic mood disorder F39 ; Anxiety disorder, unspecified F41.9 and Unspecified personality disorder F60.9 [facility] [address], [place] [address]- 8947 Nov, [facility] [address] [place] [address] 28027- 2821 Nov, Unspecified episodic mood disorder F39 ; Anxiety disorder, unspecified F41.9 and Unspecified personality disorder F60.9 [facility] [address] [place] [address] 86282- 8444 Oct, Unspecified episodic mood disorder F39 ; Anxiety disorder, unspecified F41.9 and Unspecified personality disorder F60.9 [facility] [address] [place] [address] 72392- 5281 Oct, Unspecified episodic mood disorder F39 ; Anxiety disorder, unspecified F41.9 and Unspecified personality disorder F60.9 [facility] [address] [place] [address] 45840- 3246 Sep, Unspecified episodic mood disorder F39 ; Anxiety disorder, unspecified F41.9 and Unspecified personality disorder F60.9 [facility] [address] [place] [id number] [place] [address] 87272- 4793 Sep, Encounter for immunization Z23 [facility] [address] 32029- 0439 Sep, Edema of left lower extremity R60.0 [facility] [address] [place] [id number] [place] [address] 57677- 7119 Aug, Unspecified episodic mood disorder F39 ; Anxiety disorder, unspecified F41.9 and Unspecified personality disorder F60.9 [facility] [address] [place] [id number] [place] [address] 95774- 5918 Aug, [facility] [address] [place] [id number] [place] [address] 11011- 0397 Aug, Edema of left lower extremity R60.0 [facility] [address] [place] [id number] [place] [address] 02926- 0710 Aug, [facility] [address] [place] [id number] [place] [address] 63629- 5092 Aug, Unspecified episodic mood disorder F39 ; Anxiety disorder, unspecified F41.9 and Unspecified personality disorder F60.9 [facility] [address] [place] [id number] [place] [address] 09071- 0100 Jul, Unspecified episodic mood disorder 296.90 ; Anxiety disorder , unspecified 300.00 and Unspecified personality disorder 301.9 [facility] [address] [place] [id number] [place] [address] 29801- 9634 Jul, Unspecified episodic mood disorder 296.90 ; Anxiety disorder , unspecified 300.00 and Unspecified personality disorder 301.9 [facility] [address] [place] [address] 69834- 0240 Jul, [facility] [address] [place] [address] 30648- 1637 Jun, Unspecified episodic mood disorder 296.90 ; Anxiety disorder , unspecified 300.00 and Unspecified personality disorder 301.9 [facility] [address] [place] [id number] [place] [address] 98260- 2516 May, Unspecified episodic mood disorder 296.90 ; Anxiety disorder , unspecified 300.00 and Unspecified personality disorder 301.9 [facility] [address] [place] [id number] [place] [address] 33150- 2107 May, Anxiety disorder, unspecified 300.00 [facility] [address] [place] [id number] [place] [address] 11752- 0043 May, Anxiety disorder, unspecified 300.00 and Edema 782.3 [facility] [address] [place] [id number] [place] [address] 44519- 7549 May, Unspecified episodic mood disorder 296.90 ; Anxiety disorder , unspecified 300.00 and Unspecified personality disorder 301.9 [facility] [address] [address]- 4251 Apr, [facility] [address] [place] [id number] [place] [address] 84540- 8243 Apr, Unspecified episodic mood disorder 296.90 ; Anxiety disorder , unspecified 300.00 and Personality disorder, unspecified 301.9 [facility] [address] [place] [id number] [place] [address] 53149- 3677 Apr, Unspecified episodic mood disorder 296.90 ; Anxiety disorder , unspecified 300.00 and Unspecified personality disorder 301.9 [facility] [address] [place] [id number] [place] [address] 25272- 7714 March, [facility] [address] [facility] [id number] [address]009 March, Unspecified episodic mood disorder 296.90 ; Anxiety disorder , unspecified 300.00 and Unspecified personality disorder 301.9 [facility] [address] [facility] [id number] [place] [address]- 5056 March, Unspecified episodic mood disorder 296.90 ; Anxiety disorder 300.00 and Unspecified personality disorder 301.9 [facility] [address] [facility] [id number] [place] [address]- 1206 March, [facility] [address] [id number] [address]- 7814 March, [facility] [id number] [address]- 5536 Feb, [facility] [address] [address]- 1282 Feb, [facility] [address] [address]- 0102 Feb, [facility] [address], [place] [address]- 0772 Jan, [facility] [address], [place] [address]- 2126 Jan, [facility] [address] [address]- 7766 Jan, [facility] [id number] [address]- 8976 Jan, [facility] [address], [place] [address]- 2206 Jan, [facility] [address] [address]- 3816 Jan, [facility] [address] [facility] [id number] [id number] Jan, [facility] [place] [facility] [address] [id number] [place] [address]- 4214 Jan, 2014 [facility] [place] [facility] [address] [id number] [place] [address]- 4237 Jan, 2014 [facility] [place] [facility] [address] [id number] [place] [address]- 7160 Jan, 2014 [facility] [place] [facility] [address] [id number] [place] [address]- 2222 Jan, 2014 [facility] [place] [facility] [address] [id number] [place] [address]- 3559 Jan, 2014 [facility] [place] [facility] [address] [id number] [place] [address]- 8756 Jan, 2014 [facility] [place] [facility] [address] [facility] [id number] [place] [address]- 4235 Jan, 2014 [facility] [place] [facility] [address] [id number] [place] [address]- 2630 Jan, 2014 [facility] [place] [facility] [address] [id number] [place] [address]- 7823 Jan, [facility] [place] [facility] [address] [id number] [place] [address]- 1700 Dec, [facility] [place] [facility] [address] [facility] [id number] [place] [address]- 1838 Dec, [facility] [place] [facility] [address] [id number] [place] [address]- 3139 Dec, [facility] [place] [facility] [address] [id number] [place] [address]- 4690 Dec, [facility] [place] [facility] [address] [id number] [place] [address]- 0937 Nov, [facility] [place] [facility] [address] [id number] [place] [address]- 8893 Nov, [facility] [place] [facility] [address] [id number] [place] [address]- 6765 Nov, [facility] [place] [facility] [address] [id number] [place] [address]- 9990 Nov, [facility] [place] [facility] [address] [id number] [place] 3433 Oct, [facility] [place] [facility] [address] [id number] [place] [address] Oct, [facility] [place] [facility] [address] [id number] [place] [address] 4881 Oct, [facility] [place] [facility] [address] [id number] [place] [address]- 2685 Oct, [facility] [place] [facility] [address] [id number] [place] [address]- 7046 Oct, [facility] [place] [facility] [address] [id number] [place] [address]- 4749 Oct, [facility] [place] [facility] [address] [id number] [place] [address]- 7947 Oct, [facility] [place] [facility] [address] [id number] [place] [address]- 5147 Oct, [facility] [place] [facility] [address] [id number] [place] [address]- 5152 Oct, [facility] [place] [facility] [address] [id number] [place] [address]- 9951 Oct, [facility] [place] [facility] [address] [id number] [place] [address]- 1157 Oct, [facility] [place] [facility] [address] [id number] [place] [address]- 8261 Oct, [facility] [place] [facility] [address] [id number] [place] [address]- 3450 Oct, [facility] [place] [facility] [address] [id number] [place] [address]- 2501 Oct, [facility] [place] [facility] [address] [id number] [place] [address]- 9405 Oct, [facility] [place] [facility] [address] [id number] [place] [address]- 6173 Oct, [facility] [place] [facility] [address] [id number] [place] [address]- 6052 Sep, [facility] [place] [facility] [address] [id number] [place] [address]- 1507 Sep, [facility] [place] [facility] [address] [id number] [place] [address]- 8432 Sep, [facility] [place] [facility] [address] [id number] [place] [address]- 6297 Sep, [facility] [place] [facility] [address] [id number] [place] [address]- 8495 Sep, [facility] [place] [facility] [address] [id number] [place] [address]- 4111 Sep, [facility] [place] [facility] [address] [id number] [place] [address]- 6885 Sep, [facility] [place] [facility] [address] [id number] [place] [address]- 1101 Sep, [facility] [place] [facility] [address] [id number] [place] [address]- 1033 Sep, [facility] [place] [facility] [address] [id number] [place] [address]- 4008 Sep, [facility] [place] [facility] [address] [id number] [place] [address]- 3224 Aug, [facility] [place] [facility] [address] [id number] [place] [address]- 7081 Aug, [facility] [place] [facility] [address] [id number] [place] [address]- 0383 Aug, [facility] [place] [facility] [address] [id number] [place] [address]- 9882 Aug, [facility] [place] [facility] [address] [id number] [place] [address]- 1016 Aug, [facility] [place] [facility] [address] [id number] [place] [address]- 1748 Aug, [facility] [place] [facility] [address] [id number] [place] [address]- 5338 Aug, [facility] [place] [facility] [address] [id number] [place] [address]- 2631 Aug, [facility] [place] [facility] [address] [id number] [place] [address]- 9648 Jul, [facility] [place] [facility] [address] [id number] [place] [address]- 3236 Jul, [facility] [place] [facility] [address] [id number] [place] [address]- 0843 Jul, [facility] [place] [facility] [address] [id number] [place] [address]- 6544 Jul, [facility] [place] [facility] [address] [id number] [place] [address]- 8731 Jul, [facility] [place] [facility] [address] [id number] [place] [address]- 5704 Jul, [facility] [place] [facility] [address] [id number] [place] [address]- 4987 Jun, [facility] [place] [facility] [address] [id number] [address]- 3110 Jun, [facility] [place] [facility] [address] [id number] [place] [address]- 0291 May, [facility] [place] [facility] [address] [id number] [place] [address]- 2414 May, [facility] [place] [facility] [address] [id number] [address] May, [facility] [place] [facility] [address] [id number], [place] [address]- 9059 May, [facility] [place] [facility] [address] [id number] [place] [address]- 9328 May, [facility] [place] [facility] [address] [id number] [place] [address]- 7640 May, [facility] [place] [facility] [address] [id number] [place] [address]- 3844 May, [facility] [place] [facility] [address] [id number] [place] [address]- 5820 May, [facility] [place] [facility] [address] [id number] [place] [address]- 9880 Apr, [facility] [place] [facility] [address] [id number] [place] [address]- 1172 Apr, [facility] [place] [facility] [address] [id number] [place] [address]- 8186 March, [facility] [place] [facility] [address] [id number] [place] [address]- 5427 March, [facility] [place] [facility] [address] [id number] [place] [address]- 6415 Feb, [facility] [place] [facility] [address] [id number] [place] [address]- 1028 Feb, [facility] [place] [facility] [address] [id number] [place] [address]- 6159 Feb, [facility] [place] [facility] [address] [id number] [place] [address]- 9269 Feb, [facility] [place] [facility] [address] [id number] [place] [address]- 3465 Feb, [facility] [place] [facility] [address] [id number] [place] [address]- 2537 Feb, [facility] [place] [facility] [address] [id number] [place] [address]- 9338 Feb, [facility] [place] [facility] [address] [id number] [place] [address]- 9947 Feb, [facility] [place] [facility] [address] [id number] [place] [address] Feb, [facility] [place] [facility] [address] [id number] [place] [address] Feb, [facility] [place] [facility] [address] [id number] [place] [address]- 0600 Jan, [facility] [place] [facility] [address] [id number] [place] [address]- 5428 Jan, [facility] [place] [facility] [address] [id number] [place] [address]- 4404 Jan, [facility] [place] [facility] [address] [facility] [id number] [place] [address]- 2958 Jan, [facility] [place] [facility] [address] [id number] [place] [address]- 5703 Jan, [facility] [place] [facility] [address] [id number] [place] [address]- 8781 Dec, [facility] [place] [facility] [address] [facility] [id number] [place] [address]- 4133 Dec, [facility] [place] [facility] [address] [facility] [id number] [place] [address]- 1115 Dec, [facility] [place] [facility] [address] [id number] [place] [address]- 4534 Dec, [facility] [place] [facility] [address] [id number] [place]277 Dec, [facility] [place] [facility] [address] [id number] [place] [address]- 8848 Dec, [facility] [place] [facility] [address] [id number] [place] [address]68 Nov, [facility] [place] [facility] [address] [id number], [place] [address]- 6173 Nov, [facility] [address] [id number] [place] [address]- 7947 Nov, [facility] [place] [facility] [address] [id number] [place] [address]- 9635 Nov, [facility] [place] [facility] [address] [id number] [place] [address]- 6872 Nov, [facility] [place] [facility] [address] [id number] [place] [address]- 1493 Nov, [facility] [place] [facility] [address] [id number] [place] [address]- 3551 Nov, [facility] [place] [facility] [address] [id number] [place] [address]- 6602 Nov, [facility] [address] [id number] [place] [address]- 5282 Oct, [facility] [place] [facility] [address] [id number] [place] [address]- 0553 Oct, [facility] [place] [facility] [address] [id number] [place] [address]- 8957 Oct, [facility] [place] [facility] [address] [id number] [place] [address]- 2969 Oct, [facility] [place] [facility] [address] [id number] [place] [address]- 7283 Oct, [facility] [place] [facility] [address] [id number], [place] [address]- 4398 Oct, [facility] [place] [facility] [address] [id number] [place] [address]- 2613 Oct, [facility] [place] [facility] [address] [id number] [place] [address]- 8053 Oct, [facility] [place] [facility] [address] [id number] [place] [address]- 8366 Sep, [facility] [place] [facility] [address] [id number] [place] [address]- 1153 Sep, [facility] [place] [facility] [address] [id number] [place] [address]- 8873 Sep, [facility] [place] [facility] [address] [id number] [place] [address]- 6244 Sep, [facility] [place] [facility] [address] [id number] [place] [address]- 2105 Sep, [facility] [place] [facility] [address] [id number] [place] [address]- 6960 Sep, [facility] [place] [facility] [address] [id number] [place] [address]- 2803 Sep, [facility] [place] [facility] [address] [id number] [place] [address]- 0668 Sep, [facility] [place] [facility] [address] [id number] [place] [address]- 2825 Aug, [facility] [place] [facility] [address] [id number] [place] [address]- 6528 Aug, [facility] [place] [facility] [address] [id number] [place] [address]- 6128 Aug, [facility] [place] [facility] [address] [id number] [place] [address]- 9976 Jul, [facility] [place] [facility] [address] [id number] [place] [address]- 7287 Jun, [facility] [place] [facility] [address] [id number] [place] [address]- 4742 Jun, [facility] [place] [facility] [address] [id number] [place] [address]- 8444 Jun, [facility] [place] [facility] [address] [id number] [place] [address]- 2546 Jun, [facility] [place] [facility] [address] [id number] [place] [address]- 4616 Jun, [facility] [address] [id number] [place] [address]- 5690 May, [facility] [place] [facility] [address] [id number] [place] [address]- 6689 May, [facility] [address] [id number] [place] [address]- 5385 Apr, [facility] [place] [facility] [address] [id number] [place] [address]- 5541 Apr, [facility] [address] [id number] [place] [address]- 5320 March, [facility] [place] [facility] [address] [id number] [place] [address]- 6446 March, [facility] [address] [id number] [place] [address]- 5251 March, [facility] [address] [id number] [place] [address]- 9687 March, [facility] [address] [id number] [place] [address]- 8124 March, [facility] [place] [facility] [address] [id number] [place] [address]- 2038 Feb, [facility] [place] [facility] [address] [id number] [place] [address]- 1319 Feb, [facility] [place] [facility] [address] [id number] [place] [address]- 8687 Feb, [facility] [place] [facility] [address] [id number] [place] [address]- 3966 Jan, [facility] [place] [facility] [address] [id number] [place] [address]- 7846 Dec, [facility] [place] [facility] [address] [id number] [place] [address]- 4160 Dec, [facility] [place] [facility] [address] [id number] [place] [address]- 7282 18 Dec, 2012 [facility] [address] [id number] [place] [address]- 1015 Dec, [facility] [address] [id number] [place] [address]- 2736 Nov, [facility] [address] [id number] [place] [address]- 8294 Nov, [facility] [address] [id number] [place] [address]- 0989 Nov, [facility] [address] [id number] [place] [address]- 4973 Nov, [facility] [address] [id number] [place] [address]- 5833 Oct, [facility] [address] [id number] [place] [address]- 9720 Oct, [facility] [address] [id number] [place] [address]- 9688 Oct, [facility] [address] [id number] [place] [address]- 0774 Oct, [facility] [address] [id number] [place] [address]- 2119 14 Sep, 2012 [facility] [address] [id number] [place] [address]- 4638 14 Sep, 2012 [facility] [address] [id number] [place] [address]- 8292 Sep, [facility] [address] [id number] [place] [address]- 4972 Sep, [facility] [address] [id number] [place] [address]- 7250 08 Sep, 2012 [facility] [address] [id number] [place] [address]- 1317 Sep, [facility] [place] [facility] [address] [id number] [place] [address] 2546 Aug, [facility] [place] [facility] [address] [id number] [place] [address]- 2546 Aug, [facility] [place] [facility] [address] [id number] [place] [address]- 2546 Aug, [facility] [place] [facility] [address] [id number] [place] [address]- 2546 Jul, [facility] [place] [facility] [address] [id number] [place] [address]- 2546 Jul, [facility] [place] [facility] [address] [id number] [place] [address]- 2546 Jun, [facility] [place] [facility] [address] [id number] [place] [address]- 2546 May, [facility] [place] [facility] [address] [id number] [place] [address]- 0386 May, [facility] [place] [facility] [address] [id number] [place] [address]- 4090 Apr, [facility] [place] [facility] [address] [id number] [place] [address]- 9676 Apr, [facility] [place] [facility] [address] [facility] [id number] [place] [address]- 2546 March, [facility] [place] [facility] [address] [id number], [place] [address]- 2546 March, [facility] [place] [facility] [address] [id number] [place] [address]- 2546 Feb, [facility] [place] [facility] [address] [id number] [place] [address]- 2546 Feb, [facility] [place] [facility] [address] [id number] [place] [address]- 2546 Feb, [facility] [place] [facility] [address] [id number], [place] [address]- 0472 06 Feb, 2012 [facility] [address] [id number] [place] [address] 2546 15 Jan, 2012 [facility] [place] [facility] [address] [id number] [place] [address] 2546 07 Jan, 2012 [facility] [place] [facility] [address] [id number] [place] [address] 2546 29 Dec, 2011 [facility] [place] [facility] [address] [id number] [place] [address] 2546 28 Dec, 2011 [facility] [place] [facility] [address] [id number] [place] [address]- 0346 26 Dec, 2011 [facility] [place] [facility] [address] [id number] [place] [address] 2546 23 Dec, 2011 [facility] [place] [facility] [address] [id number] [place] [address] 2546 20 Dec, 2011 [facility] [place] [facility] [address] [id number] [place] [address] 2546 15 Dec, 2011 [facility] [place] [facility] [address] [id number] [place] [address]- 6646 10 Dec, 2011 [facility] [place] [facility] [address] [facility] [id number] [place] [address] 2542 09 Dec, 2011 [facility] [place] [facility] [address] [facility] [id number] [place] [address] 2546 08 Dec, 2011 [facility] [place] [facility] [address] [id number] [place] [address] 2546 07 Dec, 2011 [facility] [place] [facility] [address] [id number] [place] [address]- 2556 02 Dec, 2011 [facility] [place] [facility] [address] [id number] [place] [address] 2546 02 Dec, 2011 [facility] [place] [facility] [address] [facility] [id number] [place] [address]- 4219 Dec, [facility] [place] [facility] [address] [id number] [place] [address]- 8206 Nov, [facility] [place] [facility] [address] [id number] [place] [address]- 2034 Nov, [facility] [place] [facility] [address] [id number] [place] [address]- 5429 Nov, [facility] [place] [facility] [address] [id number] [place] [address]- 4627 Nov, [facility] [place] [facility] [address] [id number] [place] [address]- 9172 Nov, [facility] [place] [facility] [address] [id number] [place] [address]- 6829 Nov, [facility] [place] [facility] [address] [id number] [place] [address]- 8070 Oct, [facility] [place] [facility] [address] [id number] [place] [address]- 2523 Oct, [facility] [place] [facility] [address] [id number] [place] [address]- 8634 Sep, [facility] [place] [facility] [address] [id number] [place] [address]- 0117 Sep, [facility] [place] [facility] [address] [id number], [place] [address]- 7434 Sep, [facility] [place] [facility] [address] [id number], [place] [address]- 4341 Sep, [facility] [place] [facility] [address] [id number] [place] [address]- 2867 Sep, [facility] [place] [facility] [address] [id number] [place] [address]- 4036 March, [facility] [place] [facility] [address] [id number] [place] [address]- 7582 Oct, [facility] [place] [facility] [address] [id number] [address]- 6356 Oct, [facility] [id number], [place] [address]- 4925 Oct, [facility] [id number], [place] [address]- 2873 Sep, [facility] [id number], [place] [address]- 6631 Sep, [facility] [id number], [place] [address]- 1652 Sep, [facility] [id number] [place] [address]- 9832 Sep, [facility] [id number], [place] [address]- [address] Aug, [facility] [id number] [address] Oct, [facility] [id number] [address] Oct, [facility] [id number] [address] May, IMMUNIZATIONS No Known Immunizations SOCIAL HISTORY Never Assessed REASON FOR VISIT Controlled Med Refill PLAN OF CARE VITAL SIGNS MEDICATIONS Medication Instructions Dosage Frequency Start Date End Date Duration Status Valium 10 MG Orally Twice a day 1 tablet 12h Jan, 28 days Active RESULTS No Results PROCEDURES No Known procedures INSTRUCTIONS MEDICATIONS ADMINISTERED No Known Medications MEDICAL (GENERAL) HISTORY Type Description Date Medical History hypertension Medical History panic attacks Surgical History cholecystectomy 2009 Hospitalization History surgery
--- OUTSIDE RECORDS SUMMARY | 2018-12-11 10:14 | XMS REPORT ---
Author Author SANJEEV PHELPS [facility] Address [address] [place] [address] Care Team Providers Care Barrer And Tacker Name Role Phone SANJEEV PHELPS Unavailable PROBLEMS Type Condition ICD9-CM Code DEV89-NU Code Onset Dates Condition Status SNOMED Code Problem Stress incontinence of urine N39.3 Active 18149692 Problem Anxiety F41.9 Active 16529538 Problem Anxiety disorder, unspecified F41.9 Active [id number] Problem Unspecified episodic mood disorder F39 Active 338215258 Problem Unspecified personality disorder F60.9 Active 12124658 ALLERGIES No Information ENCOUNTERS Encounter Location Date Diagnosis [place] [id number] [place] [address] 62171- 7285 Aug, Unspecified episodic mood disorder F39 ; Anxiety disorder, unspecified F41.9 and Unspecified personality disorder F60.9 [place] [id number] [place] [address] 13604- 4619 Jul, Anxiety F41.9 [place] [id number] [place] [address] 03412- 4538 Jun, Unspecified episodic mood disorder F39 ; Anxiety disorder, unspecified F41.9 and Unspecified personality disorder F60.9 [place] [id number] [place] [address] 17531- 0158 Jun, Anxiety disorder, unspecified F41.9 [place] [id number] [place] [address] 66656- 9475 May, Unspecified episodic mood disorder F39 ; Anxiety disorder, unspecified F41.9 and Unspecified personality disorder F60.9 [place] [id number] [place] [address] 76327- 2151 May, Anxiety disorder, unspecified F41.9 [facility] [id number] [place] [address] 21343- 4590 Apr, Anxiety disorder, unspecified F41.9 [facility] [id number] [place] [address] 50154- 0921 Apr, Unspecified episodic mood disorder F39 ; Anxiety disorder, unspecified F41.9 and Unspecified personality disorder F60.9 [facility] [id number] [place] [address] 50184- 5060 March, Anxiety disorder, unspecified F41.9 [place] [id number] [place] [address] 90728- 5358 March, Unspecified episodic mood disorder F39 ; Anxiety disorder, unspecified F41.9 and Unspecified personality disorder F60.9 [place] [id number] [place] [address] 16505- 4777 March, Anxiety disorder, unspecified F41.9 [facility] [id number] [place] [address] 58188- 5628 Feb, Unspecified episodic mood disorder F39 ; Anxiety disorder, unspecified F41.9 and Unspecified personality disorder F60.9 [facility] [id number] [place] [address] 65513- 8894 Feb, Unspecified episodic mood disorder F39 ; Anxiety disorder, unspecified F41.9 and Unspecified personality disorder F60.9 [facility] [id number] [place] [address] 50040- 9002 Feb, Anxiety disorder, unspecified F41.9 [facility] [id number] [place] [address] 71575- 4554 Jan, Unspecified episodic mood disorder F39 ; Anxiety disorder, unspecified F41.9 and Unspecified personality disorder F60.9 [facility] [id number] [place] [address] 28541- 3676 Jan, Anxiety F41.9 [facility] [id number] [address] 1805 Jan, Anxiety disorder, unspecified F41.9 [facility] [id number] [place] [address] 20297- 2346 Dec, Unspecified episodic mood disorder F39 ; Anxiety disorder, unspecified F41.9 and Unspecified personality disorder F60.9 [facility] [id number] [place] [address] 22430- 3845 Dec, Anxiety F41.9 [facility] [id number] [place] [address] 93689- 7257 Dec, Anxiety disorder, unspecified F41.9 [facility] [id number] [place] [address] 82340- 4384 Dec, Unspecified episodic mood disorder F39 ; Anxiety disorder, unspecified F41.9 and Unspecified personality disorder F60.9 [facility] [id number] [place] [address] 66841- 3019 Nov, [facility] [id number] [place] [address] 32430- 8721 Nov, [facility] [id number] [place] [address] 15193- 4338 Nov, Unspecified episodic mood disorder F39 ; Anxiety disorder, unspecified F41.9 and Unspecified personality disorder F60.9 [facility] [id number] [place] [address] 30185- 7034 Nov, Anxiety disorder, unspecified F41.9 [facility] [id number] [place] [address] 52957- 6449 Oct, Unspecified episodic mood disorder F39 ; Anxiety disorder, unspecified F41.9 and Unspecified personality disorder F60.9 [facility] [address] [address]- 2522 Oct, Vaginal yeast infection B37.3 [place] [id number] [place] [address] 67134- 9521 19 Oct, 2017 [place] [id number] [place] [address] 27771- 8335 Oct, Anxiety disorder, unspecified F41.9 [place] [id number] [place] [address] 71269- 7964 Oct, Routine gynecological examination Z01.419 ; Screening for breast cancer Z12.31 and Vaginal yeast infection B37.3 [place] [id number] [place] [address] 26421- 0682 Sep, Unspecified episodic mood disorder F39 ; Anxiety disorder, unspecified F41.9 and Unspecified personality disorder F60.9 [place] [id number] [place] [address] 36760- 1205 Sep, [place] [address] 70277- 7754 Sep, Anxiety disorder, unspecified F41.9 [place] [id number] [place] [address] 30981- 7830 Sep, Bronchitis J40 and Stress incontinence of urine N39.3 [place] [id number] [place] [address] 97026- 8761 Sep, Stress incontinence of urine N39.3 ; Bronchitis J40 and Anxiety F41.9 [place] [id number] [place] [address] 54819- 7751 Sep, [place] [id number] [place] [address] 96795- 0805 Sep, Unspecified episodic mood disorder F39 ; Anxiety disorder, unspecified F41.9 and Unspecified personality disorder F60.9 [place] [id number] [place] [address] 71215- 8196 Aug, Anxiety F41.9 ; Stress incontinence of urine N39.3 and Encounter for immunization Z23 [place] [address] [address]- 0712 Aug, Anxiety disorder, unspecified F41.9 [facility] [id number] [place] [address] 70452- 8913 Jul, Unspecified episodic mood disorder F39 ; Anxiety disorder, unspecified F41.9 and Unspecified personality disorder F60.9 [facility] [id number] [place] [address] 03438- 4196 Jul, [facility] [id number] [place] [address] 41186- 1868 Jul, Unspecified episodic mood disorder F39 ; Anxiety disorder, unspecified F41.9 and Unspecified personality disorder F60.9 [facility] [address] [address]- 2778 Jul, Anxiety disorder, unspecified F41.9 [facility] [id number] [place] [address] 95463- 2052 Jun, Unspecified episodic mood disorder F39 ; Anxiety disorder, unspecified F41.9 and Unspecified personality disorder F60.9 [facility] [id number] [place] [address] 63700- 6577 Jun, Anxiety disorder, unspecified F41.9 [facility] [address] [address]- 0192 Jun, Unspecified episodic mood disorder F39 ; Anxiety disorder, unspecified F41.9 and Unspecified personality disorder F60.9 [facility] [address] [address]- 8054 Jun, [facility] [id number] [place] [address] 64739- 8180 May, Anxiety disorder, unspecified F41.9 [facility] [address] [address]- 4445 May, Unspecified episodic mood disorder F39 ; Anxiety disorder, unspecified F41.9 and Unspecified personality disorder F60.9 [facility] [address] [address]- 5658 Apr, Anxiety disorder, unspecified F41.9 [facility] [id number] [place] [address] 40817- 8812 March, Unspecified episodic mood disorder F39 ; Anxiety disorder, unspecified F41.9 and Unspecified personality disorder F60.9 [facility] [id number] [place] [address] 87684- 2198 March, Bronchitis J40 [facility] [id number] [place] [address] 87533- 3499 March, Unspecified episodic mood disorder F39 ; Anxiety disorder, unspecified F41.9 and Unspecified personality disorder F60.9 [facility] [id number] [place] [address] 00759- 9552 Feb, [facility] [id number] [place] [address] 31611- 8876 Feb, Unspecified episodic mood disorder F39 ; Anxiety disorder, unspecified F41.9 and Unspecified personality disorder F60.9 [facility] [id number] [place] [address] 66634- 6051 Feb, Bronchitis J40 [facility] [id number] [place] [address] 04631- 8883 Feb, Unspecified episodic mood disorder F39 ; Anxiety disorder, unspecified F41.9 and Unspecified personality disorder F60.9 [facility] [id number] [place] [address] 57109- 8354 Jan, Unspecified episodic mood disorder F39 ; Anxiety disorder, unspecified F41.9 and Unspecified personality disorder F60.9 [facility] [id number] [place] [address] 76667- 0141 Jan, Bronchitis J40 [facility] [id number] [place] [address] 48731- 1133 Jan, Unspecified episodic mood disorder F39 ; Anxiety disorder, unspecified F41.9 and Unspecified personality disorder F60.9 [facility] [address] [address]- 3059 Dec, Anxiety F41.9 [facility] [id number] [address]- 5345 Dec, Unspecified episodic mood disorder F39 ; Anxiety disorder, unspecified F41.9 and Unspecified personality disorder F60.9 [facility] [id number] [id number] Dec, [facility] [id number] [place] [address] 75492- 0611 Dec, Unspecified episodic mood disorder F39 ; Anxiety disorder, unspecified F41.9 and Unspecified personality disorder F60.9 [facility] [address] [address]- 3647 Nov, [facility] [id number] [place] [address] 61166- 7620 Oct, Unspecified episodic mood disorder F39 ; Anxiety disorder, unspecified F41.9 and Unspecified personality disorder F60.9 [facility] [id number] [address]- 4199 Oct, [facility] [address] [address] -4587 Oct, Acute upper respiratory infection, unspecified J06.9 ; Other viral agents as the cause of diseases classified elsewhere B97.89 and Cough R05 [facility] [id number] [place] [address] 58771- 4928 Aug, Unspecified episodic mood disorder F39 ; Anxiety disorder, unspecified F41.9 and Unspecified personality disorder F60.9 [facility] [id number] [address]- 9763 Aug, [facility] [id number] [address]- 0052 Aug, [facility] [address] [address]- 7938 Aug, [facility] [address] [facility] [id number] [address]- 8401 Aug, Visit for TB skin test Z11.1 [facility] [id number] [address]- 4808 Jul, [facility] [id number] [address]- 2126 Jul, [facility] [address] [address]- 3639 Jul, [facility] [id number] [address]- 8676 Jul, [facility] [id number] [address]- 0999 Jul, [facility] [id number] [address]- 2463 Jul, Unspecified episodic mood disorder F39 ; Anxiety disorder, unspecified F41.9 and Unspecified personality disorder F60.9 [facility] [address] [address]- 3291 Jun, [facility] [id number] [address]- 1457 Jun, Unspecified episodic mood disorder F39 ; Anxiety disorder, unspecified F41.9 and Unspecified personality disorder F60.9 [facility] [id number] [address]- 4581 Jun, [facility] [id number] [address]- 5285 May, Unspecified episodic mood disorder F39 ; Anxiety disorder, unspecified F41.9 and Unspecified personality disorder F60.9 [facility] [address] [address]- 2405 May, [facility] [id number] [place] [address] 51363- 1841 May, [facility] [id number] [address]- 9109 May, Edema, unspecified R60.9 [facility] [id number] [place] [address] 46754- 8911 Apr, [facility] [id number] [place] [address] 85276- 4981 Apr, Unspecified episodic mood disorder F39 ; Anxiety disorder, unspecified F41.9 and Unspecified personality disorder F60.9 [facility] [address] [address]- 5159 Apr, Anxiety F41.9 [facility] [id number] [place] [address] 17764- 5937 March, Unspecified episodic mood disorder F39 ; Anxiety disorder, unspecified F41.9 and Unspecified personality disorder F60.9 [facility] [address] [address]- 5458 March, Unspecified episodic mood disorder F39 ; Anxiety disorder, unspecified F41.9 and Unspecified personality disorder F60.9 [facility] [address], [place] [address]- 7623 Feb, Anxiety F41.9 [facility] [id number] [address]- 1870 Feb, Unspecified episodic mood disorder F39 ; Anxiety disorder, unspecified F41.9 and Unspecified personality disorder F60.9 [facility] [id number] [address]- 3453 Jan, Unspecified episodic mood disorder F39 ; Anxiety disorder, unspecified F41.9 and Unspecified personality disorder F60.9 [facility] [address] [address]- 4751 Jan, Unspecified episodic mood disorder F39 ; Anxiety disorder, unspecified F41.9 and Unspecified personality disorder F60.9 [facility] [address] [address]- 6668 Jan, Edema, unspecified R60.9 [facility] [id number] [place] [address] 01850- 8227 Dec, [facility] [id number] [place] [address] 95422- 9377 Dec, [facility] [id number] [place] [address] 60676- 0034 Dec, [facility] [id number] [place] [address] 09458- 1003 Dec, Unspecified episodic mood disorder F39 ; Anxiety disorder, unspecified F41.9 and Unspecified personality disorder F60.9 [facility] [address] [address]- 0856 Nov, [facility] [id number] [place] [address] 47768- 8708 Nov, Unspecified episodic mood disorder F39 ; Anxiety disorder, unspecified F41.9 and Unspecified personality disorder F60.9 [facility] [address] [address]- 7454 Oct, Unspecified episodic mood disorder F39 ; Anxiety disorder, unspecified F41.9 and Unspecified personality disorder F60.9 [facility] [id number] [place] [address] 81050- 8573 Oct, Unspecified episodic mood disorder F39 ; Anxiety disorder, unspecified F41.9 and Unspecified personality disorder F60.9 [facility] [address] [address]- 3933 Sep, Unspecified episodic mood disorder F39 ; Anxiety disorder, unspecified F41.9 and Unspecified personality disorder F60.9 [facility] [id number] [place] [address] 26343- 7024 Sep, Encounter for immunization Z23 [facility] [id number] [place] [address] 23111- 8334 Sep, Edema of left lower extremity R60.0 [facility] [id number] [place] [address] 77032- 8066 Aug, Unspecified episodic mood disorder F39 ; Anxiety disorder, unspecified F41.9 and Unspecified personality disorder F60.9 [facility] [id number] [place] [address] 42036- 4826 Aug, [facility] [id number] [place] [address] 49360- 5350 Aug, Edema of left lower extremity R60.0 [facility] [id number] [place] [address] 04154- 5008 Aug, [facility] [id number] [place] [address] 30718- 5290 Aug, Unspecified episodic mood disorder F39 ; Anxiety disorder, unspecified F41.9 and Unspecified personality disorder F60.9 [facility] [address] [address]- 0142 Jul, Unspecified episodic mood disorder 296.90 ; Anxiety disorder , unspecified 300.00 and Unspecified personality disorder 301.9 [facility] [id number] [place] [address] 00664- 8095 Jul, Unspecified episodic mood disorder 296.90 ; Anxiety disorder , unspecified 300.00 and Unspecified personality disorder 301.9 [facility] [address] [address]- 4006 Jul, [facility] [id number] [place] [address] 85255- 3492 Jun, Unspecified episodic mood disorder 296.90 ; Anxiety disorder , unspecified 300.00 and Unspecified personality disorder 301.9 [facility] [id number] [place] [address] 68173- 4237 May, Unspecified episodic mood disorder 296.90 ; Anxiety disorder , unspecified 300.00 and Unspecified personality disorder 301.9 [facility] [id number] [place] [address] 29660- 2756 May, Anxiety disorder, unspecified 300.00 [facility] [id number] [place] [address] 43398- 6357 May, Anxiety disorder, unspecified 300.00 and Edema 782.3 [facility] [id number] [place] [address] 58312- 7964 May, Unspecified episodic mood disorder 296.90 ; Anxiety disorder , unspecified 300.00 and Unspecified personality disorder 301.9 [facility] [id number] [place] [address] 27026- 7537 Apr, [facility] [id number] [place] [address] 18467- 4776 Apr, Unspecified episodic mood disorder 296.90 ; Anxiety disorder , unspecified 300.00 and Personality disorder, unspecified 301.9 [facility] [id number] [place] [address] 21118- 0100 Apr, Unspecified episodic mood disorder 296.90 ; Anxiety disorder , unspecified 300.00 and Unspecified personality disorder 301.9 [facility] [address] [address]- 5905 March, [facility] [id number] [place] [address] 23250- 3028 March, Unspecified episodic mood disorder 296.90 ; Anxiety disorder , unspecified 300.00 and Unspecified personality disorder 301.9 [facility] [address] [address]- 1490 March, Unspecified episodic mood disorder 296.90 ; Anxiety disorder 300.00 and Unspecified personality disorder 301.9 [facility] [id number], [place] [address]- 3881 March, [facility] [place] [facility] [id number], [place] [address]- 5611 March, [facility] [place] [facility] [id number] [address]- 2095 Feb, [facility] [place] [facility] [address] [facility] [id number] [address]- 0357 Feb, [facility] [place] [facility] [address] [facility] [id number] [place] [address] Feb, [facility] [place] [facility] [address] [id number] [address] Jan, [facility] [id number] [address] Jan, [facility] [place] [facility] [address] [id number] [address] Jan, [facility] [place] [facility] [address] [id number] [address] Jan, [facility] [place] [facility] [address] [id number] [address] Jan, [facility] [place] [facility] [address] [id number] [address] Jan, [facility] [place] [facility] [address] [id number] [id number] Jan, [facility] [place] [facility] [address] [id number] [address] Jan, [facility] [place] [facility] [address] [id number] [address] Jan, [facility] [place] [facility] [address] [id number] [address] Jan, [facility] [place] [facility] [address] [id number] [place] [address] Jan, 2014 [facility] [place] [facility] [address] [id number] [place] [address] Jan, [facility] [place] [facility] [address] [id number] [place] [address] Jan, 2014 [facility] [place] [facility] [address] [id number] [place] [address] Jan, 2014 [facility] [place] [facility] [address] [id number] [place] [address] Jan, [facility] [place] [facility] [address] [id number] [place] [address] Jan, [facility] [place] [facility] [address] [id number] [place] [address] Dec, [facility] [place] [facility] [address] [id number] [place] [address] Dec, [facility] [place] [facility] [address] [id number] [place] [address] Dec, [facility] [place] [facility] [address] [id number] [place] [address] Dec, [facility] [place] [facility] [address] [facility] [id number] [place] [address] Nov, [facility] [place] [facility] [address] [id number] [place] [address] 0645 Nov, [facility] [place] [facility] [address] [id number] [place] [address] 6181 Nov, [facility] [place] [facility] [address] [id number] [place] [address] 7760 Nov, [facility] [place] [facility] [address] [facility] [id number] [place] [address] 3282 Oct, [facility] [place] [facility] [address] [id number] [place] [address] 3131 Oct, [facility] [place] [facility] [address] [id number] [place] [address] 9501 Oct, [facility] [place] [facility] [address] [id number] [place] [address] 0720 Oct, [facility] [place] [facility] [address] [id number] [place] [address] 5386 Oct, [facility] [place] [facility] [address] [id number] [place] [address] 2635 Oct, [facility] [place] [facility] [address] [id number] [place] [address] 5218 Oct, [facility] [place] [facility] [address] [id number] [place] [address] 5038 Oct, [facility] [place] [facility] [address] [id number] [place] [address]- 7087 Oct, [facility] [place] [facility] [address] [id number] [place] [address] 9539 Oct, [facility] [place] [facility] [address] [id number] [place] [address] 1907 Oct, [facility] [place] [facility] [address] [id number] [place] [address]- 0836 Oct, [facility] [place] [facility] [address] [id number] [place] [address]- 8464 Oct, [facility] [place] [facility] [address] [id number] [place] [address]- 6023 Oct, [facility] [place] [facility] [address] [id number] [place] [address]- 1009 Oct, [facility] [place] [facility] [address] [id number] [place] [address]- 9473 Oct, [facility] [place] [facility] [address] [id number] [place] [address] 9908 Sep, [facility] [place] [facility] [address] [id number] [place] [address]- 8582 24 Sep, 2014 [facility] [place] [facility] [address] [id number] [place] [address]- 7802 Sep, [facility] [place] [facility] [address] [id number] [place] [address]- 5143 Sep, [facility] [place] [facility] [address] [id number] [place] [address]- 3184 Sep, [facility] [place] [facility] [address] [id number] [place] [address]- 6701 Sep, [facility] [place] [facility] [address] [id number] [place] [address]- 7133 Sep, [facility] [place] [facility] [address] [id number] [place] [address]- 9890 Sep, [facility] [place] [facility] [address] [id number] [place] [address]- 3713 Sep, [facility] [place] [facility] [address] [id number] [place] [address]- 3875 Sep, [facility] [place] [facility] [address] [id number] [place] [address]- 8644 30 Aug, 2014 [facility] [place] [facility] [address] [id number] [place] [address]- 0855 30 Aug, 2014 [facility] [place] [facility] [address] [id number] [place] [address]- 8365 14 Aug, 2014 [facility] [place] [facility] [address] [id number] [place] [address]- 0277 14 Aug, 2014 [facility] [place] [facility] [address] [id number] [place] [address]- 2512 13 Aug, 2014 [facility] [place] [facility] [address] [id number] [place] [address]- 7070 Aug, [facility] [place] [facility] [address] [id number] [place] [address]- 8818 Aug, [facility] [place] [facility] [address] [id number] [place] [address]- 2559 Aug, [facility] [place] [facility] [address] [id number] [place] [address]- 9654 Jul, [facility] [place] [facility] [address] [id number] [place] [address]- 9877 Jul, 2013 [facility] [place] [facility] [address] [id number] [place] [address]- 1300 Jul, 2013 [facility] [place] [facility] [address] [id number] [place] [address]- 2151 Jul, 2013 [facility] [place] [facility] [address] [id number] [place] [address]- 4843 Jul, [facility] [place] [facility] [address] [id number] [place] [address]- 3184 Jul, [facility] [place] [facility] [address] [id number] [place] [address]- 0292 Jun, [facility] [place] [facility] [address] [id number] [place] [address] 1862 Jun, [facility] [place] [facility] [address] [id number] [place] [address]- 6397 May, [facility] [place] [facility] [address] [id number] [place] [address]- 2814 May, [facility] [place] [facility] [address] [id number] [place] [address]- 5541 May, [facility] [place] [facility] [address] [id number] [place] [address]- 6181 May, [facility] [place] [facility] [address] [id number] [place] [address]- 9871 May, [facility] [place] [facility] [address] [id number] [place] [address]- 0663 May, [facility] [place] [facility] [address] [id number] [place] [address]- 1770 May, [facility] [place] [facility] [address] [id number] [place] [address]- 5866 May, [facility] [place] [facility] [address] [id number] [place] [address]- 9277 Apr, [facility] [place] [facility] [address] [id number] [place] [address]- 4133 Apr, [facility] [place] [facility] [address] [id number] [place] [address]- 0921 March, [facility] [place] [facility] [address] [id number] [place] [address]- 8315 March, [facility] [place] [facility] [address] [id number] [place] [address]- 0228 Feb, [facility] [place] [facility] [address] [id number] [place] [address]- 4612 Feb, [facility] [place] [facility] [address] [id number] [place] [address]- 2831 Feb, [facility] [place] [facility] [address] [id number] [place] [address]- 0999 Feb, [facility] [place] [facility] [address] [id number] [place] [address]- 8256 Feb, [facility] [place] [facility] [address] [id number] [place] [address]- 3581 Feb, [facility] [place] [facility] [address] [id number] [place] [address]- 0508 Feb, [facility] [place] [facility] [address] [id number] [place] [address]- 1649 Feb, [facility] [place] [facility] [address] [id number] [place] [address]- 2676 Feb, [facility] [place] [facility] [address] [id number] [place] [address]- 8286 Feb, [facility] [place] [facility] [address] [id number] [place] [address]- 5521 Jan, [facility] [place] [facility] [address] [id number] [place] [address]- 5521 Jan, [facility] [place] [facility] [address] [id number] [place] [address]- 9156 Jan, [facility] [place] [facility] [address] [id number] [place] [address]- 2791 Jan, [facility] [place] [facility] [address] [id number] [place] [address]- 4024 Jan, [facility] [place] [facility] [address] [id number] [place] [address]- 1887 Dec, [facility] [place] [facility] [address] [id number] [place] [address]- 3372 Dec, [facility] [place] [facility] [address] [id number] [place] [address]- 6334 Dec, [facility] [place] [facility] [address] [id number] [place] [address]- 8961 Dec, [facility] [place] [facility] [address] [id number] [place] [address]- 1409 Dec, [facility] [place] [facility] [address] [id number] [place] [address]- 5332 Dec, [facility] [place] [facility] [address] [id number] [place] [address]- 8581 Nov, [facility] [place] [facility] [address] [id number] [place] [address]- 1943 Nov, [facility] [place] [facility] [address] [id number] [place] [address]- 7224 Nov, [facility] [place] [facility] [address] [id number] [place] [address]- 8487 Nov, [facility] [place] [facility] [address] [id number] [place] [address]- 1019 Nov, [facility] [place] [facility] [address] [id number] [place] [address]- 8146 Nov, [facility] [place] [facility] [address] [id number] [place] [address]- 0321 Nov, [facility] [place] [facility] [address] [facility] [id number] [place] [address]- 5386 Nov, [facility] [place] [facility] [address] [id number] [place] [address]- 0193 Oct, [facility] [place] [facility] [address] [id number] [place] [address]- 2691 Oct, [facility] [place] [facility] [address] [id number] [place] [address]- 0237 Oct, [facility] [place] [facility] [address] [id number] [place] [address]- 8237 Oct, [facility] [place] [facility] [address] [id number] [place] [address]- 5315 Oct, [facility] [place] [facility] [address] [id number] [place] [address]- 8699 Oct, [facility] [place] [facility] [address] [id number] [place] [address]- 1408 Oct, [facility] [place] [facility] [address] [id number], [place] [address]- 5127 Oct, [facility] [place] [facility] [address] [id number], [place] [address]- 1469 Sep, [facility] [place] [facility] [address] [id number] [place] [address]- 6293 Sep, [facility] [place] [facility] [address] [id number], [place] [address]- 4781 Sep, [facility] [place] [facility] [address] [id number] [place] [address]- 9247 Sep, [facility] [place] [facility] [address] [id number] [place] [address]- 1892 07 Sep, 2013 [facility] [address] [id number] [place] [address]- 2838 Sep, [facility] [place] [facility] [address] [id number] [place] [address]- 1543 Sep, [facility] [place] [facility] [address] [id number] [place] [address]- 0421 Sep, [facility] [place] [facility] [address] [id number] [place] [address]- 7499 Aug, [facility] [place] [facility] [address] [id number] [place] [address]- 4615 Aug, [facility] [place] [facility] [address] [id number] [place] [address]- 1545 Aug, [facility] [place] [facility] [address] [id number] [place] [address]- 8344 Jul, [facility] [place] [facility] [address] [id number] [place] [address]- 5768 Jun, [facility] [place] [facility] [address] [id number] [place] [address]- 7102 Jun, [facility] [place] [facility] [address] [id number] [place] [address]- 8237 Jun, [facility] [place] [facility] [address] [id number] [place] [address]- 4386 Jun, [facility] [place] [facility] [address] [id number] [place] [address]- 9193 Jun, [facility] [place] [facility] [address] [id number] [place] [address]- 2695 May, [facility] [place] [facility] [address] [id number] [place] [address]- 2540 May, [facility] [place] [facility] [address] [id number] [place] [address]- 2151 Apr, [facility] [place] [facility] [address] [id number] [place] [address]- 6845 Apr, [facility] [address] [id number] [place] [address]- 0159 March, [facility] [address] [id number] [place] [address]- 8294 March, [facility] [place] [facility] [address] [id number] [place] [address]- 6425 March, [facility] [address] [id number] [place] [address]- 2811 March, [facility] [address] [id number] [place] [address]- 4330 March, [facility] [address] [id number] [place] [address]- 5783 Feb, [facility] [address] [id number] [place] [address]- 8931 Feb, [facility] [address] [id number] [place] [address]- 5770 Feb, [facility] [address] [id number] [place] [address]- 5215 Jan, [facility] [place] [facility] [address] [id number] [place] [address]- 0720 Dec, [facility] [place] [facility] [address] [id number] [place] [address]- 7769 Dec, [facility] [place] [facility] [address] [id number] [place] [address]- 6479 Dec, [facility] [place] [facility] [address] [id number] [place] [address]- 1080 Dec, [facility] [place] [facility] [address] [id number] [place] [address]- 7788 Nov, [facility] [place] [facility] [address] [id number] [place] [address]- 3858 Nov, [facility] [place] [facility] [address] [id number] [place] [address]- 4551 Nov, [facility] [place] [facility] [address] [id number] [place] [address]- 2426 Nov, [facility] [place] [facility] [address] [id number] [place] [address]- 6446 Oct, [facility] [place] [facility] [address] [id number] [place] [address]- 2381 Oct, [facility] [place] [facility] [address] [id number] [place] [address]- 8950 Oct, [facility] [place] [facility] [address] [id number] [place] [address]- 4926 Oct, [facility] [place] [facility] [address] [id number] [place] [address]- 1516 14 Sep, 2012 [facility] [place] [facility] [address] [id number] [place] [address]- 5042 14 Sep, 2012 [facility] [place] [facility] [address] [id number] [place] [address]- 8458 Sep, [facility] [place] [facility] [address] [facility] [id number] [place] [address]- 5993 Sep, [facility] [place] [facility] [address] [id number] [place] [address]- 1046 08 Sep, 2012 [facility] [place] [facility] [address] [id number], [place] [address]- 9552 Sep, [facility] [place] [facility] [address] [id number] [place] [address]- 4328 Aug, [facility] [place] [facility] [address] [id number] [place] [address]- 9956 Aug, [facility] [place] [facility] [address] [facility] [id number], [place] [address]- 4517 Aug, [facility] [place] [facility] [address] [id number] [place] [address]- 3684 27 Jul, 2012 [facility] [place] [facility] [address] [id number] [place] [address]- 8756 04 Jul, 2012 [facility] [place] [facility] [address] [id number] [place] [address]- 2546 Jun, [facility] [place] [facility] [address] [id number] [place] [address]- 7978 May, [facility] [place] [facility] [address] [id number] [place] [address]- 3341 May, [facility] [place] [facility] [address] [id number] [place] [address]- 7916 Apr, [facility] [place] [facility] [address] [id number] [place] [address]- 8999 Apr, [facility] [place] [facility] [address] [id number] [place] [address]- 6333 March, [facility] [place] [facility] [address] [id number] [place] [address]- 3631 March, [facility] [place] [facility] [address] [id number] [place] [address]- 8905 Feb, [facility] [place] [facility] [address] [id number] [place] [address]- 4890 16 Feb, 2012 [facility] [place] [facility] [address] [id number] [place] [address]- 7031 Feb, [facility] [place] [facility] [address] [id number] [place] [address]- 9238 Feb, [facility] [place] [facility] [address] [id number] [place] [address]- 0014 15 Jan, 2012 [facility] [place] [facility] [address] [id number] [place] [address]- 1831 07 Jan, 2012 [facility] [place] [facility] [address] [id number] [place] [address]- 7789 29 Dec, 2011 [facility] [place] [facility] [address] [id number] [place] [address] 2546 28 Dec, 2011 [facility] [place] [facility] [address] [id number] [place] [address] 2546 26 Dec, 2011 [facility] [place] [facility] [address] [facility] [id number] [place] [address] 2546 23 Dec, 2011 [facility] [place] [facility] [address] [id number] [place] [address] 2546 20 Dec, 2011 [facility] [place] [facility] [address] [id number] [place] [address] 2546 15 Dec, 2011 [facility] [place] [facility] [address] [id number] [place] [address] 2546 10 Dec, 2011 [facility] [address] [id number] [place] [address] 2546 09 Dec, 2011 [facility] [place] [facility] [address] [id number] [place] [address] 2545 08 Dec, 2011 [facility] [place] [facility] [address] [facility] [id number] [place] [address]- 3486 07 Dec, 2011 [facility] [place] [facility] [address] [facility] [id number] [place] [address] 254 02 Dec, 2011 [facility] [place] [facility] [address] [facility] [id number] [place] [address] 2546 Dec, [facility] [place] [facility] [address] [facility] [id number] [place] [address] 2546 Dec, [facility] [place] [facility] [address] [facility] [id number] [place] [address] 2546 Nov, [facility] [place] [facility] [address] [facility] [id number] [place] [address]- 2546 Nov, [facility] [place] [facility] [address] [facility] [id number] [place] [address] 1604 Nov, [facility] [address] [id number] [place] [address]- 1342 Nov, [facility] [place] [facility] [address] [id number] [place] [address]- 7057 Nov, [facility] [place] [facility] [address] [id number] [place] [address]- 7536 Nov, [facility] [place] [facility] [address] [id number] [place] [address]- 7686 Oct, [facility] [address] [id number] [place] [address]- 9540 Oct, [facility] [place] [facility] [address] [id number] [place] [address]- 1274 Sep, [facility] [place] [facility] [address] [id number] [place] [address]- 2863 Sep, [facility] [place] [facility] [address] [id number] [place] [address]- 9068 Sep, [facility] [place] [facility] [address] [id number] [place] [address]- 5775 Sep, [facility] [place] [facility] [address] [id number], [place] [address]- 1044 Sep, [facility] [place] [facility] [address] [id number] [place] [address]- 6954 March, [facility] [place] [facility] [address] [id number], [place] [address]- 1247 Oct, [facility] [place] [facility] [address] [id number] [place] [address]- 5443 Oct, [facility] [place] [facility] [address] [id number] [place] [address]- 0537 Oct, [facility] [place] [facility] [address] [id number], [place] [address]- 0137 Sep, [facility] [place] [facility] [address] [id number], [place] [address]- 2546 Sep, [facility] [address] [id number], [place] [address] 2546 Sep, [facility] [address] [id number] [address] Sep, [facility] [address] [id number] [address] Aug, [facility] [address] [id number] [address] Oct, [facility] [address] [id number] [address] Oct, [facility] [address] [id number] [address] May, IMMUNIZATIONS No Known Immunizations SOCIAL HISTORY Never Assessed REASON FOR VISIT f/u PLAN OF CARE Activity Details Follow Up Next available Reason: F/U VITAL SIGNS MEDICATIONS Unknown Medications RESULTS No Results PROCEDURES Procedure Date Ordered Result Body Site Psychotherapy, patient &/family, 45 minutes, established patient Aug 15, 2018 INSTRUCTIONS MEDICATIONS ADMINISTERED No Known Medications MEDICAL (GENERAL) HISTORY Type Description Date Medical History hypertension Medical History panic attacks Surgical History cholecystectomy 2008 Hospitalization History surgery
[2018-12-11] MEDS ORDERED: metroNIDAZOLE 500MG/100ML IVPB 100 ML IV ONE (10:15)
[2018-12-11] MEDS ORDERED: ceFAZolin INJECTION 1,000 MG in NS (IVPB) 50 ML IV ONE (10:15)
--- OUTSIDE RECORDS SUMMARY | 2018-12-11 10:15 | XMS REPORT ---
Author Author SANJEEV PHELPS [facility] Address [address] [place] [address] Care Team Providers Care Occupational Safety Specialist Name Role Phone SANJEEV PHELPS Unavailable PROBLEMS Type Condition ICD9-CM Code ASH30-KW Code Onset Dates Condition Status SNOMED Code Problem Stress incontinence of urine N39.3 Active 44216923 Problem Anxiety F41.9 Active 23786039 Problem Anxiety disorder, unspecified F41.9 Active [id number] Problem Unspecified episodic mood disorder F39 Active [id number] Problem Unspecified personality disorder F60.9 Active [id number] ALLERGIES No Information ENCOUNTERS Encounter Location Date Diagnosis [place] [id number] [place] [address] 40257- 3112 Aug, [facility] [id number] [place] [address] 60699- 8734 Jul, Anxiety F41.9 [place] [id number] [place] [address] 91540- 5682 Jun, Unspecified episodic mood disorder F39 ; Anxiety disorder, unspecified F41.9 and Unspecified personality disorder F60.9 [place] [address] [place] [address] 12514- 9951 Jun, Anxiety disorder, unspecified F41.9 [facility] [address] [place] [address] 82650- 3070 May, Unspecified episodic mood disorder F39 ; Anxiety disorder, unspecified F41.9 and Unspecified personality disorder F60.9 [facility] [address] [place] [address] 21543- 5887 May, Anxiety disorder, unspecified F41.9 [place] [id number] [place] [address] 90280- 5867 Apr, Anxiety disorder, unspecified F41.9 [place] [address] [place] [address] 59998- 3783 Apr, Unspecified episodic mood disorder F39 ; Anxiety disorder, unspecified F41.9 and Unspecified personality disorder F60.9 [place] [address] [place] [address] 94670- 7566 March, Anxiety disorder, unspecified F41.9 [place] [id number] [place] [address] 57868- 9238 March, Unspecified episodic mood disorder F39 ; Anxiety disorder, unspecified F41.9 and Unspecified personality disorder F60.9 [place] [id number] [place] [address] 97704- 8056 March, Anxiety disorder, unspecified F41.9 [place] [id number] [place] [address] 77354- 2794 Feb, Unspecified episodic mood disorder F39 ; Anxiety disorder, unspecified F41.9 and Unspecified personality disorder F60.9 [place] [id number] [place] [address] 16462- 6677 Feb, Unspecified episodic mood disorder F39 ; Anxiety disorder, unspecified F41.9 and Unspecified personality disorder F60.9 [place] [address] [place] [address] 76016- 3124 Feb, Anxiety disorder, unspecified F41.9 [place] [address] [place] [address] 26767- 7533 Jan, Unspecified episodic mood disorder F39 ; Anxiety disorder, unspecified F41.9 and Unspecified personality disorder F60.9 [facility] [address] [address]- 7036 Jan, Anxiety F41.9 [place] [address] [place] [address] 08077- 7344 Jan, Anxiety disorder, unspecified F41.9 [facility] [address] [address]- 1577 Dec, Unspecified episodic mood disorder F39 ; Anxiety disorder, unspecified F41.9 and Unspecified personality disorder F60.9 [facility] [address] [address]- 0740 Dec, Anxiety F41.9 [facility] [id number] [place] [address] 94594- 7848 Dec, Anxiety disorder, unspecified F41.9 [facility] [id number] [place] [address] 57804- 8274 Dec, Unspecified episodic mood disorder F39 ; Anxiety disorder, unspecified F41.9 and Unspecified personality disorder F60.9 [facility] [id number] [place] [address] 59272- 2560 Nov, [facility] [id number] [place] [address] 07168- 7229 Nov, [facility] [id number] [place] [address] 35309- 4307 Nov, Unspecified episodic mood disorder F39 ; Anxiety disorder, unspecified F41.9 and Unspecified personality disorder F60.9 [facility] [address] [place] [address] 21771- 4587 Nov, Anxiety disorder, unspecified F41.9 [facility] [address] [place] [address] 61148- 1965 Oct, Unspecified episodic mood disorder F39 ; Anxiety disorder, unspecified F41.9 and Unspecified personality disorder F60.9 [facility] [address] [address]- 0849 Oct, Vaginal yeast infection B37.3 [facility] [address] [place] [address] 52467- 1985 Oct, [place] [id number] [place] [address] 40215- 0222 Oct, Anxiety disorder, unspecified F41.9 [place] [id number] [place] [address] 16899- 4373 Oct, Routine gynecological examination Z01.419 ; Screening for breast cancer Z12.31 and Vaginal yeast infection B37.3 [place] [address] 07529- 5239 Sep, Unspecified episodic mood disorder F39 ; Anxiety disorder, unspecified F41.9 and Unspecified personality disorder F60.9 [place] [address] 48403- 0359 Sep, [place] [address] 41458- 6178 Sep, Anxiety disorder, unspecified F41.9 [place] [address] 56923- 3068 Sep, Bronchitis J40 and Stress incontinence of urine N39.3 [place] [address] 20091- 0098 Sep, Stress incontinence of urine N39.3 ; Bronchitis J40 and Anxiety F41.9 [place] [address] 98720- 3919 Sep, [place] [address] 72977- 1498 Sep, Unspecified episodic mood disorder F39 ; Anxiety disorder, unspecified F41.9 and Unspecified personality disorder F60.9 [place] [address] 64058- 2264 Aug, Anxiety F41.9 ; Stress incontinence of urine N39.3 and Encounter for immunization Z23 [place] [address] 53164- 1078 Aug, Anxiety disorder, unspecified F41.9 [facility] [address] [address]- 5450 Jul, Unspecified episodic mood disorder F39 ; Anxiety disorder, unspecified F41.9 and Unspecified personality disorder F60.9 [facility] [address] [address]- 8122 Jul, [facility] [id number] [place] [address] 22245- 4692 Jul, Unspecified episodic mood disorder F39 ; Anxiety disorder, unspecified F41.9 and Unspecified personality disorder F60.9 [facility] [id number] [place] [address] 17833- 1985 Jul, Anxiety disorder, unspecified F41.9 [facility] [id number] [place] [address] 06887- 3605 Jun, Unspecified episodic mood disorder F39 ; Anxiety disorder, unspecified F41.9 and Unspecified personality disorder F60.9 [facility] [address] [address]- 0639 Jun, Anxiety disorder, unspecified F41.9 [facility] [address] [address]- 2821 Jun, Unspecified episodic mood disorder F39 ; Anxiety disorder, unspecified F41.9 and Unspecified personality disorder F60.9 [facility] [address] [address]- 4544 Jun, [facility] [address] [place] [address] 86208- 7319 May, Anxiety disorder, unspecified F41.9 [facility] [address] [address]- 8837 May, Unspecified episodic mood disorder F39 ; Anxiety disorder, unspecified F41.9 and Unspecified personality disorder F60.9 [facility] [id number] [place] [address] 25458- 2863 Apr, Anxiety disorder, unspecified F41.9 [facility] [id number] [place] [address] 21766- 9428 March, Unspecified episodic mood disorder F39 ; Anxiety disorder, unspecified F41.9 and Unspecified personality disorder F60.9 [facility] [id number] [place] [address] 89994- 9256 March, Bronchitis J40 [facility] [id number] [place] [address] 67022- 1686 March, Unspecified episodic mood disorder F39 ; Anxiety disorder, unspecified F41.9 and Unspecified personality disorder F60.9 [facility] [id number] [place] [address] 17438- 7312 Feb, [facility] [id number] [place] [address] 02377- 2950 Feb, Unspecified episodic mood disorder F39 ; Anxiety disorder, unspecified F41.9 and Unspecified personality disorder F60.9 [facility] [id number] [place] [address] 63144- 1514 Feb, Bronchitis J40 [facility] [id number] [place] [address] 90765- 6204 Feb, Unspecified episodic mood disorder F39 ; Anxiety disorder, unspecified F41.9 and Unspecified personality disorder F60.9 [facility] [id number] [place] [address] 38437- 8641 Jan, Unspecified episodic mood disorder F39 ; Anxiety disorder, unspecified F41.9 and Unspecified personality disorder F60.9 [facility] [id number] [place] [address] 23043- 5895 Jan, Bronchitis J40 [facility] [id number] [place] [address] 20241- 0080 Jan, Unspecified episodic mood disorder F39 ; Anxiety disorder, unspecified F41.9 and Unspecified personality disorder F60.9 [facility] [address] [address]- 2484 Dec, Anxiety F41.9 [facility] [address] [address]- 4760 Dec, Unspecified episodic mood disorder F39 ; Anxiety disorder, unspecified F41.9 and Unspecified personality disorder F60.9 [facility] [id number] [id number] Dec, [facility] [address] [place] [address] 96693- 7322 Dec, Unspecified episodic mood disorder F39 ; Anxiety disorder, unspecified F41.9 and Unspecified personality disorder F60.9 [facility] [address] [address]- 9622 Nov, [facility] [address] [place] [address] 78649- 9730 Oct, Unspecified episodic mood disorder F39 ; Anxiety disorder, unspecified F41.9 and Unspecified personality disorder F60.9 [facility] [address] [place] [address] 90779- 7120 Oct, [facility] [address] [address] -[address]95 Oct, Acute upper respiratory infection, unspecified J06.9 ; Other viral agents as the cause of diseases classified elsewhere B97.[address] [facility] [id number] [address]- 9690 Aug, Unspecified episodic mood disorder F39 ; Anxiety disorder, unspecified F41.9 and Unspecified personality disorder F60.9 [facility] [id number] [address]- 6350 Aug, [facility] [address] [address]- 3050 Aug, [facility] [address] [address]- 7207 Aug, [facility] [address] [address]- 0343 Aug, Visit for TB skin test Z11.1 [facility] [address] [address]- 0212 Jul, [facility] [address] [place] [address] 22480- 5023 Jul, [facility] [address] [place] [address] 63345- 1773 Jul, [facility] [address] [place] [address] 66410- 8687 Jul, [facility] [address] [place] [address] 62611- 4055 Jul, [facility] [address] [address]- 5867 Jul, Unspecified episodic mood disorder F39 ; Anxiety disorder, unspecified F41.9 and Unspecified personality disorder F60.9 [facility] [address] [address]- 1316 Jun, [facility] [address] [address]- 2822 Jun, Unspecified episodic mood disorder F39 ; Anxiety disorder, unspecified F41.9 and Unspecified personality disorder F60.9 [facility] [address] [address]- 1425 Jun, [facility] [address] [address]- 1449 May, Unspecified episodic mood disorder F39 ; Anxiety disorder, unspecified F41.9 and Unspecified personality disorder F60.9 [facility] [address] [address]- 3374 May, [facility] [address] [address]- 3622 May, [facility] [id number] [place] [address] 87162- 0585 May, Edema, unspecified R60.9 [facility] [id number] [place] [address] 75417- 8087 Apr, [facility] [id number] [place] [address] 01705- 6184 Apr, Unspecified episodic mood disorder F39 ; Anxiety disorder, unspecified F41.9 and Unspecified personality disorder F60.9 [place] [id number] [place] [address] 00206- 2982 Apr, Anxiety F41.9 [place] [id number] [place] [address] 56482- 5854 March, Unspecified episodic mood disorder F39 ; Anxiety disorder, unspecified F41.9 and Unspecified personality disorder F60.9 [place] [id number] [place] [address] 85411- 2210 March, Unspecified episodic mood disorder F39 ; Anxiety disorder, unspecified F41.9 and Unspecified personality disorder F60.9 [place] [address] [address]- 4003 Feb, Anxiety F41.9 [facility] [address] [place] [address] 92758- 0878 Feb, Unspecified episodic mood disorder F39 ; Anxiety disorder, unspecified F41.9 and Unspecified personality disorder F60.9 [facility] [address] [place] [address] 72099- 5508 Jan, Unspecified episodic mood disorder F39 ; Anxiety disorder, unspecified F41.9 and Unspecified personality disorder F60.9 [facility] [address] [place] [address] 13795- 1044 Jan, Unspecified episodic mood disorder F39 ; Anxiety disorder, unspecified F41.9 and Unspecified personality disorder F60.9 [facility] [address] [address]- 3329 Jan, Edema, unspecified R60.9 [facility] [address] [address]- 5866 Dec, [facility] [id number] [place] [address] 02296- 6987 Dec, [facility] [address] [place] [address] 69642- 5782 Dec, [facility] [id number] [place] [address] 22013- 7985 Dec, Unspecified episodic mood disorder F39 ; Anxiety disorder, unspecified F41.9 and Unspecified personality disorder F60.9 [facility] [address] [address]- 6905 Nov, [facility] [address] [place] [address] 85127- 2557 Nov, Unspecified episodic mood disorder F39 ; Anxiety disorder, unspecified F41.9 and Unspecified personality disorder F60.9 [facility] [address] [address]- 7068 Oct, Unspecified episodic mood disorder F39 ; Anxiety disorder, unspecified F41.9 and Unspecified personality disorder F60.9 [facility] [address] [address]- 2646 Oct, Unspecified episodic mood disorder F39 ; Anxiety disorder, unspecified F41.9 and Unspecified personality disorder F60.9 [facility] [address] [address]- 0732 Sep, Unspecified episodic mood disorder F39 ; Anxiety disorder, unspecified F41.9 and Unspecified personality disorder F60.9 [facility] [address] [address]- 3445 Sep, Encounter for immunization Z23 [facility] [id number] [place] [address] 32646- 8413 Sep, Edema of left lower extremity R60.0 [facility] [id number] [place] [address] 33521- 1443 Aug, Unspecified episodic mood disorder F39 ; Anxiety disorder, unspecified F41.9 and Unspecified personality disorder F60.9 [facility] [id number] [place] [address] 10214- 3608 Aug, [facility] [id number] [place] [address] 64120- 1817 Aug, Edema of left lower extremity R60.0 [facility] [id number] [place] [address] 20622- 3570 Aug, [facility] [id number] [place] [address] 75231- 5490 Aug, Unspecified episodic mood disorder F39 ; Anxiety disorder, unspecified F41.9 and Unspecified personality disorder F60.9 [facility] [address] [place] [address] 03923- 3374 Jul, Unspecified episodic mood disorder 296.90 ; Anxiety disorder , unspecified 300.00 and Unspecified personality disorder 301.9 [facility] [address] [place] [address] 35894- 7429 Jul, Unspecified episodic mood disorder 296.90 ; Anxiety disorder , unspecified 300.00 and Unspecified personality disorder 301.9 [facility] [id number] [place] [address] 16308- 6050 Jul, [facility] [address] [place] [address] 36766- 3015 Jun, Unspecified episodic mood disorder 296.90 ; Anxiety disorder , unspecified 300.00 and Unspecified personality disorder 301.9 [facility] [address] [address]- 8846 May, Unspecified episodic mood disorder 296.90 ; Anxiety disorder , unspecified 300.00 and Unspecified personality disorder 301.9 [facility] [address] [address]- 8078 May, Anxiety disorder, unspecified 300.00 [facility] [id number] [place] [address] 33569- 5708 May, Anxiety disorder, unspecified 300.[address] [facility] [id number] [place] [address] 95801- 5093 May, Unspecified episodic mood disorder 296.90 ; Anxiety disorder , unspecified 300.00 and Unspecified personality disorder 301.9 [facility] [address] [address]- 7762 Apr, [facility] [id number] [place] [address] 51828- 0860 Apr, Unspecified episodic mood disorder 296.90 ; Anxiety disorder , unspecified 300.00 and Personality disorder, unspecified 301.9 [facility] [address] [address]- 9593 Apr, Unspecified episodic mood disorder 296.90 ; Anxiety disorder , unspecified 300.00 and Unspecified personality disorder 301.9 [facility] [address] [address]- 9677 March, [facility] [address] [address]- 6594 March, Unspecified episodic mood disorder 296.90 ; Anxiety disorder , unspecified 300.00 and Unspecified personality disorder 301.9 [facility] [address] [address]- 8935 March, Unspecified episodic mood disorder 296.90 ; Anxiety disorder 300.00 and Unspecified personality disorder 301.9 [facility] [id number] [place] [address] 2546 March, [facility] [place] [facility] [address] [id number] [place] [address]- 0089 March, [facility] [place] [facility] [address] [facility] [id number] [place] [address]- 7136 Feb, [facility] [place] [facility] [address] [id number] [place] [address]- 1576 Feb, [facility] [place] [facility] [address] [id number] [place] [address]- 6208 Feb, [facility] [place] [facility] [address] [id number] [place] [address]- 1168 Jan, [facility] [place] [facility] [address] [facility] [id number] [place] [address]- 0776 Jan, [facility] [place] [facility] [address] [facility] [id number] [place] [address]- 3808 Jan, [facility] [place] [facility] [address] [facility] [id number] [place] [address]- 0083 Jan, [facility] [place] [facility] [address] [facility] [id number] [place] [address]- 5036 Jan, [facility] [place] [facility] [address] [facility] [id number] [place] [address]- 7507 Jan, [facility] [place] [facility] [address] [facility] [id number] [place] [id number] Jan, [facility] [place] [facility] [address] [facility] [id number] [place] [address]- 1359 Jan, [facility] [place] [facility] [address] [facility] [id number] [place] [address]- 8156 Jan, [facility] [place] [facility] [address] [facility] [id number] [place] [address]- 4166 Jan, [facility] [place] [facility] [address] [facility] [id number] [place] [address]- 8626 Jan, [facility] [place] [facility] [address] [id number] [place] [address]- 5788 Jan, 2014 [facility] [place] [facility] [address] [id number] [place] [address]- 6168 Jan, 2014 [facility] [place] [facility] [address] [id number] [place] [address] Jan, 2014 [facility] [place] [facility] [address] [id number] [place] [address] Jan, 2014 [facility] [place] [facility] [address] [id number] [place] [address] Jan, [facility] [place] [facility] [address] [id number] [place] [address] Dec, [facility] [place] [facility] [address] [facility] [id number] [place] [address] Dec, 2014 [facility] [place] [facility] [address] [facility] [id number] [place] [address] Dec, 2014 [facility] [place] [facility] [address] [facility] [id number] [place] [address] Dec, [facility] [place] [facility] [address] [facility] [id number] [place] [address] Nov, [facility] [place] [facility] [address] [facility] [id number] [place] [address] Nov, [facility] [place] [facility] [address] [id number] [address] Nov, [facility] [place] [facility] [address] [id number] [place] [address] Nov, [facility] [place] [facility] [address] [id number] [place] [address] Oct, [facility] [place] [facility] [address] [facility] [id number] [place] [address] Oct, [facility] [place] [facility] [address] [id number] [address] Oct, [facility] [place] [facility] [address] [id number] [place] [address] Oct, [facility] [place] [facility] [address] [id number] [place] [address]- 7760 Oct, [facility] [place] [facility] [address] [id number] [place] [address] 5414 Oct, [facility] [place] [facility] [address] [id number] [place] [address]- 5987 Oct, [facility] [place] [facility] [address] [id number] [place] [address]- 4074 Oct, [facility] [place] [facility] [address] [id number] [place] [address]- 2146 Oct, [facility] [place] [facility] [address] [id number] [place] [address]- 5337 Oct, [facility] [place] [facility] [address] [id number] [place] [address]- 4750 Oct, [facility] [place] [facility] [address] [id number] [place] [address]- 0519 Oct, [facility] [place] [facility] [address] [id number] [place] [address]- 7413 Oct, [facility] [place] [facility] [address] [id number] [place] [address]- 4065 Oct, [facility] [place] [facility] [address] [id number] [place] [address]- 8903 Oct, [facility] [place] [facility] [address] [id number] [place] [address]- 9728 Oct, [facility] [place] [facility] [address] [id number] [place] [address]- 1152 Sep, [facility] [place] [facility] [address] [id number] [place] [address]- 1095 Sep, [facility] [place] [facility] [address] [id number] [place] [address]- 3723 Sep, [facility] [place] [facility] [address] [id number] [place] [address]- 2103 Sep, [facility] [place] [facility] [address] [id number] [place] [address]- 8583 Sep, [facility] [place] [facility] [address] [id number] [place] [address]- 8719 Sep, [facility] [place] [facility] [address] [id number] [place] [address]- 8682 Sep, [facility] [place] [facility] [address] [id number] [place] [address]- 9004 Sep, [facility] [place] [facility] [address] [id number] [place] [address]- 3613 Sep, [facility] [place] [facility] [address] [id number] [place] [address]- 4280 Sep, [facility] [place] [facility] [address] [id number] [place] [address]- 8736 Aug, [facility] [place] [facility] [address] [id number] [place] [address]- 6217 Aug, [facility] [place] [facility] [address] [id number] [place] [address]- 6687 Aug, [facility] [place] [facility] [address] [id number] [place] [address]- 5071 Aug, [facility] [place] [facility] [address] [id number] [place] [address]- 6093 Aug, [facility] [place] [facility] [address] [id number] [place] [address]- 3594 Aug, [facility] [place] [facility] [address] [id number] [place] [address]- 9280 Aug, [facility] [place] [facility] [address] [id number] [place] [address]- 6541 Aug, [facility] [place] [facility] [address] [id number] [place] [address]- 6151 Jul, [facility] [place] [facility] [address] [id number] [place] [address]- 4473 Jul, [facility] [place] [facility] [address] [id number] [place] [address]- 9820 Jul, [facility] [place] [facility] [address] [id number] [place] [address]- 9012 Jul, [facility] [place] [facility] [address] [id number] [place] [address]- 6385 Jul, [facility] [place] [facility] [address] [id number] [place] [address]- 5837 Jul, [facility] [place] [facility] [address] [id number] [place] [address]- 1140 Jun, [facility] [place] [facility] [address] [id number] [place] [address]- 7833 Jun, [facility] [place] [facility] [address] [id number] [place] [address]- 5237 May, [facility] [place] [facility] [address] [id number] [place] [address]- 8970 May, [facility] [place] [facility] [address] [id number] [place] [address]- 5317 May, [facility] [place] [facility] [address] [id number] [address] May, [facility] [place] [facility] [address] [id number] [place] [address]- 0475 May, [facility] [place] [facility] [address] [id number] [place] [address]- 0566 May, [facility] [place] [facility] [address] [id number] [place] [address]- 4279 May, [facility] [place] [facility] [address] [id number] [place] [address]- 8915 May, [facility] [place] [facility] [address] [id number] [place] [address]- 8406 Apr, [facility] [place] [facility] [address] [id number] [place] [address]- 3906 Apr, [facility] [place] [facility] [address] [id number] [place] [address]- 8833 March, [facility] [place] [facility] [address] [id number] [place] [address]- 4814 March, [facility] [place] [facility] [address] [id number] [place] [address]- 0833 Feb, [facility] [place] [facility] [address] [id number] [place] [address]- 2999 Feb, [facility] [place] [facility] [address] [id number] [place] [address]- 3236 Feb, [facility] [place] [facility] [address] [id number] [place] [address]- 3430 Feb, [facility] [place] [facility] [address] [id number] [place] [address]- 2546 Feb, [facility] [place] [facility] [address] [id number] [place] [address]- 4693 Feb, [facility] [place] [facility] [address] [id number] [place] [address]- 8472 Feb, [facility] [place] [facility] [address] [id number] [place] [address]- 3230 Feb, [facility] [place] [facility] [address] [id number] [place] [address]- 1099 Feb, [facility] [place] [facility] [address] [id number] [place] [address]- 7450 Feb, [facility] [place] [facility] [address] [id number] [place] [address]- 0726 Jan, [facility] [place] [facility] [address] [id number] [place] [address]- 9081 Jan, [facility] [place] [facility] [address] [id number] [place] [address]- 5676 Jan, [facility] [place] [facility] [address] [id number] [place] [address]- 7169 Jan, [facility] [place] [facility] [address] [id number] [place] [address]- 6170 Jan, [facility] [place] [facility] [address] [id number] [place] [address]- 8591 Dec, [facility] [place] [facility] [address] [id number] [place] [address]- 4229 Dec, [facility] [place] [facility] [address] [id number] [place] [address]- 8259 Dec, [facility] [place] [facility] [address] [id number] [place] [address]- 6600 Dec, [facility] [place] [facility] [address] [id number] [place] [address]- 2090 Dec, [facility] [place] [facility] [address] [id number] [place] [address]- 3106 Dec, [facility] [place] [facility] [address] [id number] [place] [address]- 5940 Nov, [facility] [place] [facility] [address] [id number] [place] [address]- 5233 Nov, [facility] [place] [facility] [address] [id number] [place] [address]- 8883 Nov, [facility] [place] [facility] [address] [id number] [place] [address]- 4246 Nov, [facility] [place] [facility] [address] [id number] [place] [address]- 1135 Nov, [facility] [place] [facility] [address] [id number] [place] [address]- 1707 Nov, [facility] [address] [id number] [place] [address]- 6490 Nov, [facility] [address] [facility] [id number] [place] [address]- 5057 Nov, [facility] [address] [facility] [id number] [place] [address]- 8951 Oct, [facility] [place] [facility] [address] [id number] [place] [address]- 1055 Oct, [facility] [address] [facility] [id number] [place] [address]- 5287 Oct, [facility] [address] [facility] [id number] [place] [address]- 2319 Oct, [facility] [address] [id number] [place] [address]- 6687 Oct, [facility] [place] [facility] [address] [facility] [id number] [place] [address]- 8560 Oct, [facility] [address] [id number] [place] [address]- 7356 Oct, [facility] [address] [facility] [id number] [place] [address]- 8574 Oct, [facility] [address] [facility] [id number] [place] [address]- 7485 Sep, [facility] [place] [facility] [address] [id number] [place] [address]- 1004 Sep, [facility] [place] [facility] [address] [id number] [place] [address]- 9900 14 Sep, 2013 [facility] [place] [facility] [address] [facility] [id number] [place] [address]- 3197 14 Sep, 2013 [facility] [place] [facility] [address] [id number] [address]- 6351 07 Sep, 2013 [facility] [place] [facility] [address] [id number] [place] [address]- 2546 Sep, [facility] [place] [facility] [address] [id number] [place] [address]- 3017 Sep, [facility] [place] [facility] [address] [id number] [place] [address]- 2546 Sep, [facility] [place] [facility] [address] [id number] [place] [address]- 4294 Aug, [facility] [place] [facility] [address] [id number] [place] [address]- 7232 Aug, [facility] [place] [facility] [address] [id number] [place] [address]- 6352 Aug, [facility] [place] [facility] [address] [id number] [place] [address]- 6509 Jul, [facility] [place] [facility] [address] [id number] [place] [address]- 8237 Jun, [facility] [place] [facility] [address] [id number] [place] [address]- 2337 Jun, [facility] [place] [facility] [address] [id number] [place] [address]- 4763 Jun, [facility] [place] [facility] [address] [id number] [place] [address]- 2403 Jun, [facility] [place] [facility] [address] [id number] [place] [address]- 3121 Jun, [facility] [place] [facility] [address] [id number] [place] [address]- 2548 May, [facility] [place] [facility] [address] [id number] [place] [address]- 2546 May, [facility] [place] [facility] [address] [id number] [place] [address]- 2546 Apr, [facility] [place] [facility] [address] [id number] [place] [address]- 7070 Apr, [facility] [address] [id number] [place] [address]- 6532 March, [facility] [address] [id number] [place] [address]- 6116 March, [facility] [address] [id number] [place] March, [facility] [place] [facility] [address] [id number] [place] [address]- 0059 March, [facility] [address] [id number] [place] [address]- 4177 March, [facility] [address] [id number] [place] [address]- 2238 Feb, [facility] [place] [facility] [address] [id number] [place] [address]- 4119 Feb, [facility] [place] [facility] [address] [id number] [place] [address]- 5807 Feb, [facility] [place] [facility] [address] [id number] [place] [address]- 4073 Jan, [facility] [place] [facility] [address] [id number] [place] [address]- 3947 Dec, [facility] [place] [facility] [address] [id number] [place] [address]- 2595 Dec, [facility] [place] [facility] [address] [id number] [address]- 0158 Dec, [facility] [place] [facility] [address] [id number] [place] [address]- 4112 Dec, [facility] [place] [facility] [address] [id number] [place] [address]- 3599 Nov, [facility] [place] [facility] [address] [id number] [place] [address]- 2480 Nov, [facility] [place] [facility] [address] [id number] [place] [address]- 1876 Nov, [facility] [address] [id number] [place] [address]- 9590 Nov, [facility] [place] [facility] [address] [id number] [place] [address]- 4691 Oct, [facility] [address] [id number] [place] [address]- 4814 Oct, [facility] [place] [facility] [address] [id number] [place] [address]- 2932 Oct, [facility] [address] [id number] [place] [address], [place] [address]- 6255 Oct, [facility] [address] [id number] [place] [address]- 8374 Sep, [facility] [address] [id number] [place] [address]- 2148 14 Sep, 2012 [facility] [address] [id number] [place] [address]- 6899 Sep, [facility] [address] [id number] [place] [address]- 3598 Sep, [facility] [address] [facility] [id number] [place] [address]- 4720 Sep, [facility] [place] [facility] [address] [id number] [place] [address]- 8641 Sep, [facility] [address] [id number] [place] [address]- 1376 Aug, [facility] [place] [facility] [address] [id number] [place] [address]- 4285 Aug, [facility] [place] [facility] [address] [id number] [place] [address]- 9716 Aug, [facility] [place] [facility] [address] [id number] [place] [address]- 1009 Jul, [facility] [address] [id number] [place] [address]- 0439 Jul, [facility] [place] [facility] [address] [id number] [place] [address]- 6546 Jun, [facility] [place] [facility] [address] [id number] [place] [address]- 5572 May, [facility] [place] [facility] [address] [id number] [place] [address]- 5092 May, [facility] [place] [facility] [address] [id number] [place] [address]- 2832 Apr, [facility] [place] [facility] [address] [id number] [place] [address]- 2646 Apr, [facility] [place] [facility] [address] [id number] [place] [address]- 8746 March, [facility] [place] [facility] [address] [id number] [place] [address]- 5441 March, [facility] [place] [facility] [address] [id number] [place] [address]- 8840 Feb, [facility] [place] [facility] [address] [id number] [place] [address]- 9527 Feb, [facility] [place] [facility] [address] [id number] [place] [address]- 4256 Feb, [facility] [place] [facility] [address] [id number] [place] [address]- 3556 Feb, [facility] [place] [facility] [address] [id number] [place] [address]- 7043 Jan, [facility] [place] [facility] [address] [id number] [place] [address]- 4216 Jan, [facility] [place] [facility] [address] [id number] [place] [address]- 1086 Dec, [facility] [place] [facility] [address] [id number] [place] [address]- 1706 28 Dec, 2011 [facility] [place] [facility] [address] [id number] [place] [address]- 2966 26 Dec, 2011 [facility] [place] [facility] [address] [id number] [place] [address] 2546 23 Dec, 2011 [facility] [place] [facility] [address] [id number] [place] [address] 2546 20 Dec, 2011 [facility] [place] [facility] [address] [id number] [place] [address] 2546 15 Dec, 2011 [facility] [place] [facility] [address] [id number] [place] [address]- 6996 10 Dec, 2011 [facility] [place] [facility] [address] [id number] [place] [address]- 2546 09 Dec, 2011 [facility] [place] [facility] [address] [id number] [place] [address] 2546 08 Dec, 2011 [facility] [place] [facility] [address] [id number] [place] [address]- 2548 07 Dec, 2011 [facility] [place] [facility] [address] [id number] [place] [address]- 3516 02 Dec, 2011 [facility] [place] [facility] [address] [id number] [place] [address]- 4996 02 Dec, 2011 [facility] [place] [facility] [address] [facility] [id number] [place] [address] 2546 Dec, [facility] [place] [facility] [address] [id number] [place] [address] 2546 Nov, [facility] [place] [facility] [address] [id number] [place] [address] 2546 Nov, [facility] [place] [facility] [address] [id number] [place] [address] 2546 Nov, [facility] [place] [facility] [address] [facility] [id number] [address]- 2546 Nov, [facility] [address] [id number] [place] [address]- 3306 Nov, [facility] [place] [facility] [address] [id number] [place] [address]- 2555 Nov, [facility] [place] [facility] [address] [id number] [place] [address]- 0844 Oct, [facility] [place] [facility] [address] [id number] [place] [address]- 6648 Oct, [facility] [place] [facility] [address] [id number] [place] [address]- 8286 Sep, [facility] [place] [facility] [address] [id number] [place] [address]- 9729 Sep, [facility] [place] [facility] [address] [id number] [place] [address]- 6821 Sep, [facility] [place] [facility] [address] [id number] [place] [address]- 9827 Sep, [facility] [place] [facility] [address] [id number] [place] [address]- 4476 Sep, [facility] [place] [facility] [address] [id number] [place] [address]- 1572 March, [facility] [place] [facility] [address] [id number] [place] [address]- 2884 Oct, [facility] [place] [facility] [address] [id number] [place] [address]- 9653 Oct, [facility] [place] [facility] [address] [id number] [place] [address]- 1053 Oct, [facility] [place] [facility] [address] [id number] [place] [address]- 6555 24 Sep, 2010 [facility] [place] [facility] [address] [id number] [place] [address]- 3199 17 Sep, 2010 [facility] [place] [facility] [address] [facility] [id number] [place] [address]- [address] Sep, [facility] [address] [id number] [address] 25[address] Sep, [facility] [address] [id number] [address] 2546 Aug, [facility] [address] [id number] [address] 2546 Oct, [facility] [address] [id number] [address]- [address]46 Oct, [facility] [address] [id number] [address] 2546 May, IMMUNIZATIONS No Known Immunizations SOCIAL HISTORY Never Assessed REASON FOR VISIT f/u PLAN OF CARE Activity Details Follow Up Next available Reason: F/U VITAL SIGNS MEDICATIONS Unknown Medications RESULTS No Results PROCEDURES Procedure Date Ordered Result Body Site Psychotherapy, patient &/family, 45 minutes, established patient Jul 05, 2018 INSTRUCTIONS MEDICATIONS ADMINISTERED No Known Medications MEDICAL (GENERAL) HISTORY Type Description Date Medical History hypertension Medical History panic attacks Surgical History cholecystectomy 2008 Hospitalization History surgery
--- OUTSIDE RECORDS SUMMARY | 2018-12-11 10:15 | XMS REPORT ---
Author Author LEIDA ANDINO Organization [facility] Address [address] [place] [address] Care Team Providers Care Design Engineering Technician Name Role Phone LEIDA ANDINO Unavailable PROBLEMS Type Condition ICD9-CM Code [id number] Code Onset Dates Condition Status SNOMED Code Problem Stress incontinence of urine N39.3 Active 75786975 Problem Anxiety F41.9 Active 18628978 Problem Anxiety disorder, unspecified F41.9 Active 945372298 Problem Unspecified episodic mood disorder F39 Active 840250918 Problem Unspecified personality disorder F60.9 Active [id number] ALLERGIES No Known Allergies ENCOUNTERS Encounter Location Date Diagnosis [place] [address] 43082- 7817 Aug, [place] [id number] [place] [id number] [place] [address] 25565- 5506 Jul, Anxiety F41.9 [place] [address] [place] [id number] [place] [address] 76470- 6069 Jun, Unspecified episodic mood disorder F39 ; Anxiety disorder, unspecified F41.9 and Unspecified personality disorder F60.9 [place] [address] [place] [id number] [place] [address] 25746- 7664 Jun, Anxiety disorder, unspecified F41.9 [place] [address] [place] [id number] [place] [address] 23666- 3042 May, Unspecified episodic mood disorder F39 ; Anxiety disorder, unspecified F41.9 and Unspecified personality disorder F60.9 [facility] [address] [place] [id number] [place] [address] 86493- 4773 May, Anxiety disorder, unspecified F41.9 [place] [address] [place] [id number] [place] [address] 28562- 9141 Apr, Anxiety disorder, unspecified F41.9 [place] [id number] [place] [address] 83861- 4085 Apr, Unspecified episodic mood disorder F39 ; Anxiety disorder, unspecified F41.9 and Unspecified personality disorder F60.9 [place] [address] [place] [id number] [place] [address] 83097- 1101 March, Anxiety disorder, unspecified F41.9 [place] [address] [place] [id number] [place] [address] 68045- 8939 March, Unspecified episodic mood disorder F39 ; Anxiety disorder, unspecified F41.9 and Unspecified personality disorder F60.9 [place] [address] [place] [id number] [place] [address] 72155- 2820 March, Anxiety disorder, unspecified F41.9 [place] [address] [place] [id number] [place] [address] 61740- 9196 Feb, Unspecified episodic mood disorder F39 ; Anxiety disorder, unspecified F41.9 and Unspecified personality disorder F60.9 [place] [address] [place] [id number] [place] [address] 47975- 1379 Feb, Unspecified episodic mood disorder F39 ; Anxiety disorder, unspecified F41.9 and Unspecified personality disorder F60.9 [place] [id number] [place] [address] 54069- 4839 Feb, Anxiety disorder, unspecified F41.9 [place] [address] [place] [id number] [place] [address] 51175- 4865 Jan, Unspecified episodic mood disorder F39 ; Anxiety disorder, unspecified F41.9 and Unspecified personality disorder F60.9 [place] [id number] [place] [address] 60965- 7042 Jan, Anxiety F41.9 [place] [address] [place] [id number] [place] [address] 17012- 0415 Jan, Anxiety disorder, unspecified F41.9 [facility] [id number] [place] [address] 20602- 6089 Dec, Unspecified episodic mood disorder F39 ; Anxiety disorder, unspecified F41.9 and Unspecified personality disorder F60.9 [facility] [address] [place] [id number] [place] [address] 90887- 8743 Dec, Anxiety F41.9 [facility] [address] [place] [id number] [place] [address] 57921- 4915 Dec, Anxiety disorder, unspecified F41.9 [facility] [address] [place] [id number] [place] [address] 27122- 8581 Dec, Unspecified episodic mood disorder F39 ; Anxiety disorder, unspecified F41.9 and Unspecified personality disorder F60.9 [place] [address] [place] [id number] [place] [address] 01253- 9481 Nov, [facility] [address] [place] [id number] [place] [address] 05343- 5490 Nov, [facility] [address] [place] [id number] [place] [address] 83040- 1433 Nov, Unspecified episodic mood disorder F39 ; Anxiety disorder, unspecified F41.9 and Unspecified personality disorder F60.9 [place] [id number] [place] [address] 75347- 6867 Nov, Anxiety disorder, unspecified F41.9 [facility] [address] [place] [id number] [place] [address] 60863- 8065 Oct, Unspecified episodic mood disorder F39 ; Anxiety disorder, unspecified F41.9 and Unspecified personality disorder F60.9 [facility] [id number] [place] [address] 49740- 4064 Oct, Vaginal yeast infection B37.3 [facility] [id number] [place] [address] 72393- 9843 Oct, [place] [address] [place] [id number] [place] [address] 39193- 2483 Oct, Anxiety disorder, unspecified F41.9 [place] [address] [place] [id number] [place] [address] 05819- 3568 Oct, Routine gynecological examination Z01.419 ; Screening for breast cancer Z12.31 and Vaginal yeast infection B37.3 [place] [address] 86550- 9040 Sep, Unspecified episodic mood disorder F39 ; Anxiety disorder, unspecified F41.9 and Unspecified personality disorder F60.9 [place] [address] 18455- 8716 Sep, [place] [address] 07856- 2195 Sep, Anxiety disorder, unspecified F41.9 [place] [address] 00563- 1728 Sep, Bronchitis J40 and Stress incontinence of urine N39.3 [place] [address] 61730- 1674 Sep, Stress incontinence of urine N39.3 ; Bronchitis J40 and Anxiety F41.9 [place] [address] 82684- 2272 Sep, [place] [address] 59899- 3432 Sep, Unspecified episodic mood disorder F39 ; Anxiety disorder, unspecified F41.9 and Unspecified personality disorder F60.9 [place] [address] 34778- 5939 Aug, Anxiety F41.9 ; Stress incontinence of urine N39.3 and Encounter for immunization Z23 [place] [address] [place] [id number] [place] [address] 71720- 8752 Aug, Anxiety disorder, unspecified F41.9 [facility] [address] [address]- 3937 Jul, Unspecified episodic mood disorder F39 ; Anxiety disorder, unspecified F41.9 and Unspecified personality disorder F60.9 [facility] [id number] [place] [address] 77078- 8305 Jul, [facility] [address] [place] [id number] [place] [address] 05287- 3686 Jul, Unspecified episodic mood disorder F39 ; Anxiety disorder, unspecified F41.9 and Unspecified personality disorder F60.9 [facility] [address] [place] [id number] [place] [address] 07828- 0475 Jul, Anxiety disorder, unspecified F41.9 [facility] [address] [place] [id number] [place] [address] 73808- 8223 Jun, Unspecified episodic mood disorder F39 ; Anxiety disorder, unspecified F41.9 and Unspecified personality disorder F60.9 [facility] [address] [place] [address] 24350- 6204 Jun, Anxiety disorder, unspecified F41.9 [facility] [id number] [place] [address] 17972- 1121 Jun, Unspecified episodic mood disorder F39 ; Anxiety disorder, unspecified F41.9 and Unspecified personality disorder F60.9 [facility] [id number] [place] [address] 10904- 8921 Jun, [facility] [id number] [place] [address] 79963- 1195 May, Anxiety disorder, unspecified F41.9 [facility] [address] [place] [address] 10508- 9735 May, Unspecified episodic mood disorder F39 ; Anxiety disorder, unspecified F41.9 and Unspecified personality disorder F60.9 [facility] [address] [place] [address] 68397- 8999 Apr, Anxiety disorder, unspecified F41.9 [facility] [id number] [place] [address] 11107- 4890 March, Unspecified episodic mood disorder F39 ; Anxiety disorder, unspecified F41.9 and Unspecified personality disorder F60.9 [facility] [address] [place] [id number] [place] [address] 02328- 1030 March, Bronchitis J40 [facility] [address] [place] [id number] [place] [address] 84758- 2776 March, Unspecified episodic mood disorder F39 ; Anxiety disorder, unspecified F41.9 and Unspecified personality disorder F60.9 [facility] [address] [place] [id number] [place] [address] 37248- 5679 Feb, [facility] [address] [place] [id number] [place] [address] 69814- 6313 Feb, Unspecified episodic mood disorder F39 ; Anxiety disorder, unspecified F41.9 and Unspecified personality disorder F60.9 [facility] [address] [place] [id number] [place] [address] 87553- 8047 Feb, Bronchitis J40 [facility] [id number] [place] [address] 87226- 9762 Feb, Unspecified episodic mood disorder F39 ; Anxiety disorder, unspecified F41.9 and Unspecified personality disorder F60.9 [facility] [address] [place] [address] 05374- 5365 Jan, Unspecified episodic mood disorder F39 ; Anxiety disorder, unspecified F41.9 and Unspecified personality disorder F60.9 [facility] [address] [place] [id number] [place] [address] 86421- 1658 Jan, Bronchitis J40 [facility] [id number] [place] [address] 74705- 7193 Jan, Unspecified episodic mood disorder F39 ; Anxiety disorder, unspecified F41.9 and Unspecified personality disorder F60.9 [facility] [address] [address]- 1714 Dec, Anxiety F41.9 [facility] [id number] [place] [address] 28817- 7621 Dec, Unspecified episodic mood disorder F39 ; Anxiety disorder, unspecified F41.9 and Unspecified personality disorder F60.9 [facility] [id number] [address] Dec, [facility] [address] [place] [address] 36124- 2004 Dec, Unspecified episodic mood disorder F39 ; Anxiety disorder, unspecified F41.9 and Unspecified personality disorder F60.9 [facility] [address] [address]- 4952 Nov, [facility] [id number] [place] [address] 96374- 7772 Oct, Unspecified episodic mood disorder F39 ; Anxiety disorder, unspecified F41.9 and Unspecified personality disorder F60.9 [facility] [id number] [place] [address] 25909- 3592 Oct, [facility] [address] [address] -2399 Oct, Acute upper respiratory infection, unspecified J06.9 ; Other viral agents as the cause of diseases classified elsewhere B97.89 and Cough R05 [facility] [address] [place] [address]- 4028 Aug, Unspecified episodic mood disorder F39 ; Anxiety disorder, unspecified F41.9 and Unspecified personality disorder F60.9 [facility] [address] [address]- 9797 Aug, [facility] [id number] [place] [address] 42103- 1820 Aug, [facility] [address] [place] [address]- 9674 Aug, [facility] [address] [place] [address]- 3394 Aug, Visit for TB skin test Z11.1 [facility] [address] [address]- 3505 Jul, [facility] [address] [place] [address] [address]- 8940 Jul, [facility] [address] [place] [address]- 0727 Jul, [facility] [address] [place] [address]- 4002 Jul, [facility] [address] [place] [address]- 0049 Jul, [facility] [address], [place] [address]- 4543 Jul, Unspecified episodic mood disorder F39 ; Anxiety disorder, unspecified F41.9 and Unspecified personality disorder F60.9 [facility] [address] [address]- 3217 Jun, [facility] [address] [address]- 7465 Jun, Unspecified episodic mood disorder F39 ; Anxiety disorder, unspecified F41.9 and Unspecified personality disorder F60.9 [facility] [address] [address]- 4280 Jun, [facility] [address] [place] [address]- 0661 May, Unspecified episodic mood disorder F39 ; Anxiety disorder, unspecified F41.9 and Unspecified personality disorder F60.9 [facility] [address] [address]- 2400 May, [facility] [address], [place] [address]- 3033 May, [facility] [address] [place] [id number] [place] [address] 75428- 5792 May, Edema, unspecified R60.9 [facility] [id number] [place] [address] 38787- 7207 Apr, [facility] [address] [place] [id number] [place] [address] 09544- 3455 Apr, Unspecified episodic mood disorder F39 ; Anxiety disorder, unspecified F41.9 and Unspecified personality disorder F60.9 [place] [address] [place] [id number] [place] [address] 54078- 6592 Apr, Anxiety F41.9 [place] [id number] [place] [address] 98508- 9198 March, Unspecified episodic mood disorder F39 ; Anxiety disorder, unspecified F41.9 and Unspecified personality disorder F60.9 [place] [address] [place] [address] 56614- 2362 March, Unspecified episodic mood disorder F39 ; Anxiety disorder, unspecified F41.9 and Unspecified personality disorder F60.9 [place] [address] [place] [address] 25468- 0762 Feb, Anxiety F41.9 [facility] [address] [place] [id number] [place] [address] 78301- 8183 Feb, Unspecified episodic mood disorder F39 ; Anxiety disorder, unspecified F41.9 and Unspecified personality disorder F60.9 [facility] [address] [place] [address] 64173614- 4258 Jan, Unspecified episodic mood disorder F39 ; Anxiety disorder, unspecified F41.9 and Unspecified personality disorder F60.9 [place] [address] [place] [address] 02341- 7209 Jan, Unspecified episodic mood disorder F39 ; Anxiety disorder, unspecified F41.9 and Unspecified personality disorder F60.9 [facility] [address], [place] [address]- 1474 Jan, Edema, unspecified R60.9 [facility] [address], [place] [address]- 7054 Dec, [facility] [address] [place] [id number] [place] [address] 18364- 7270 Dec, [facility] [id number] [place] [address] 17061- 8894 Dec, [facility] [address] [place] [id number] [place] [address] 25521- 6858 Dec, Unspecified episodic mood disorder F39 ; Anxiety disorder, unspecified F41.9 and Unspecified personality disorder F60.9 [facility] [address] [place] [address] 90354- 3699 Nov, [facility] [address] [place] [address] 21523- 8432 Nov, Unspecified episodic mood disorder F39 ; Anxiety disorder, unspecified F41.9 and Unspecified personality disorder F60.9 [facility] [address] [address]- 6998 Oct, Unspecified episodic mood disorder F39 ; Anxiety disorder, unspecified F41.9 and Unspecified personality disorder F60.9 [facility] [address], [place] [address]- 9342 Oct, Unspecified episodic mood disorder F39 ; Anxiety disorder, unspecified F41.9 and Unspecified personality disorder F60.9 [facility] [address], [place] [address]- 1285 Sep, Unspecified episodic mood disorder F39 ; Anxiety disorder, unspecified F41.9 and Unspecified personality disorder F60.9 [facility] [address], [place] [address]- 3499 Sep, Encounter for immunization Z23 [facility] [address] [place] [id number] [place] [address] 43701- 6419 Sep, Edema of left lower extremity R60.0 [facility] [address] [place] [id number] [place] [address] 77364- 0232 Aug, Unspecified episodic mood disorder F39 ; Anxiety disorder, unspecified F41.9 and Unspecified personality disorder F60.9 [facility] [address] [place] [id number] [place] [address] 87378- 6299 Aug, [facility] [address] [place] [id number] [place] [address] 81089- 4692 Aug, Edema of left lower extremity R60.0 [facility] [address] [place] [id number] [place] [address] 67143- 0212 Aug, [facility] [address] [place] [id number] [place] [address] 07393- 9750 Aug, Unspecified episodic mood disorder F39 ; Anxiety disorder, unspecified F41.9 and Unspecified personality disorder F60.9 [facility] [address] [place] [address] 08258- 1080 Jul, Unspecified episodic mood disorder 296.90 ; Anxiety disorder , unspecified 300.00 and Unspecified personality disorder 301.9 [facility] [address], [place] [address]- 9311 Jul, Unspecified episodic mood disorder 296.90 ; Anxiety disorder , unspecified 300.00 and Unspecified personality disorder 301.9 [facility] [address] [place] [address] 07067- 6390 Jul, [facility] [address] [place] [address] 79657- 9558 Jun, Unspecified episodic mood disorder 296.90 ; Anxiety disorder , unspecified 300.00 and Unspecified personality disorder 301.9 [facility] [address] [address]- 6404 May, Unspecified episodic mood disorder 296.90 ; Anxiety disorder , unspecified 300.00 and Unspecified personality disorder 301.9 [facility] [address] [address]- 6505 May, Anxiety disorder, unspecified 300.00 [facility] [address] [id number] [place] [address] 56483- 6765 May, Anxiety disorder, unspecified 300.00 and Edema 782.3 [facility] [address] [id number] [place] [address] 84274- 2623 May, Unspecified episodic mood disorder 296.90 ; Anxiety disorder , unspecified 300.00 and Unspecified personality disorder 301.9 [facility] [address] [address]- 6753 Apr, [facility] [address] [id number] [place] [address] 94322- 4221 Apr, Unspecified episodic mood disorder 296.90 ; Anxiety disorder , unspecified 300.00 and Personality disorder, unspecified 301.9 [facility] [address] [place] [address] 26305- 9545 Apr, Unspecified episodic mood disorder 296.90 ; Anxiety disorder , unspecified 300.00 and Unspecified personality disorder 301.9 [facility] [address], [place] [address]- 5754 March, [facility] [id number] [place] [address] 99249- 9322 March, Unspecified episodic mood disorder 296.90 ; Anxiety disorder , unspecified 300.00 and Unspecified personality disorder 301.9 [facility] [id number] [place] [address] 00829- 1898 March, Unspecified episodic mood disorder 296.90 ; Anxiety disorder 300.00 and Unspecified personality disorder 301.9 [facility] [id number] [place] [address] 42770- 7836 March, [facility] [place] [facility] [address] [id number] [place] [address]- 0182 March, [facility] [place] [facility] [address] [id number] [place] [address]- 2354 Feb, [facility] [place] [facility] [address] [id number] [place] [address]- 3136 Feb, [facility] [place] [facility] [address] [id number] [place] [address]- 7250 Feb, [facility] [place] [facility] [address] [id number] [place] [address]- 0979 Jan, [facility] [place] [facility] [address] [id number] [place] [address]- 1578 Jan, [facility] [place] [facility] [address] [id number] [place] [address]- 9622 Jan, [facility] [place] [facility] [address] [id number] [place] [address]- 8861 Jan, [facility] [place] [facility] [address] [id number] [place] [address]- 7474 Jan, [facility] [place] [facility] [address] [id number] [place] [address]- 1797 Jan, [facility] [place] [facility] [id number] [id number] Jan, [facility] [place] [facility] [address] [id number] [place] [address] Jan, [facility] [place] [facility] [address] [id number] [place] [address] Jan, [facility] [place] [facility] [address] [id number] [place] [address] Jan, [facility] [place] [facility] [address] [id number] [place] [address] Jan, [facility] [place] [facility] [address] [id number] [place] [address] Jan, 2014 [facility] [place] [facility] [address] [id number] [place] [address] Jan, 2014 [facility] [place] [facility] [address] [id number] [place] [address] Jan, 2014 [facility] [place] [facility] [address] [id number] [place] [address] Jan, 2014 [facility] [place] [facility] [address] [id number] [place] [address] Jan, 2014 [facility] [place] [facility] [address] [id number] [place] [address] Dec, 2014 [facility] [place] [facility] [address] [facility] [id number] [place] [address] Dec, 2014 [facility] [place] [facility] [address] [id number] [place] [address] Dec, 2014 [facility] [place] [facility] [address] [id number] [place] [address] Dec, [facility] [place] [facility] [address] [facility] [id number] [place] [address] Nov, [facility] [place] [facility] [address] [facility] [id number] [place] [address]- 1740 Nov, [facility] [place] [facility] [address] [facility] [id number] [place] [address] 9215 Nov, [facility] [place] [facility] [address] [id number], [place] [address] Nov, [facility] [place] [facility] [address] [id number] [place] [address]- 5329 Oct, [facility] [place] [facility] [address] [facility] [id number] [place] [address]- 3343 Oct, [facility] [place] [facility] [address] [id number] [place] [address]- 9645 Oct, [facility] [place] [facility] [address] [id number] [place] [address]- 7094 Oct, [facility] [place] [facility] [address] [id number] [place] [address]- 5692 Oct, [facility] [place] [facility] [address] [id number] [place] [address] Oct, [facility] [place] [facility] [address] [id number] [place] [address]- 6534 Oct, [facility] [place] [facility] [address] [id number] [place] [address]- 8639 Oct, [facility] [place] [facility] [address] [id number] [place] [address]- 7706 Oct, [facility] [place] [facility] [address] [id number] [place] [address]- 0346 Oct, [facility] [place] [facility] [address] [id number] [place] [address]- 4878 Oct, [facility] [place] [facility] [address] [id number] [place] [address]- 4616 Oct, [facility] [place] [facility] [address] [id number] [place] [address]- 9965 Oct, [facility] [place] [facility] [address] [id number] [place] [address]- 9793 Oct, [facility] [place] [facility] [address] [id number] [place] [address]- 6261 Oct, [facility] [place] [facility] [address] [id number] [place] [address]- 5188 Oct, [facility] [place] [facility] [address] [id number] [place] [address]- 5139 Sep, [facility] [place] [facility] [address] [id number] [place] [address]- 5582 Sep, [facility] [place] [facility] [address] [id number] [place] [address]- 3080 Sep, [facility] [place] [facility] [address] [id number] [place] [address]- 2470 Sep, [facility] [place] [facility] [address] [id number] [place] [address]- 7670 Sep, [facility] [place] [facility] [address] [id number] [place] [address]- 7394 Sep, [facility] [place] [facility] [address] [id number] [place] [address]- 7855 Sep, [facility] [place] [facility] [address] [id number] [place] [address]- 3890 Sep, [facility] [place] [facility] [address] [id number] [place] [address]- 3081 Sep, [facility] [place] [facility] [address] [id number] [place] [address]- 4342 Sep, [facility] [place] [facility] [address] [id number] [place] [address]- 0172 Aug, [facility] [place] [facility] [address] [id number] [place] [address]- 8181 Aug, [facility] [place] [facility] [address] [id number] [place] [address]- 1314 Aug, [facility] [place] [facility] [address] [id number] [place] [address]- 3239 Aug, [facility] [place] [facility] [address] [id number] [place] [address]- 5321 Aug, [facility] [place] [facility] [address] [id number] [place] [address]- 5177 Aug, [facility] [place] [facility] [address] [id number] [place] [address]- 7694 Aug, [facility] [place] [facility] [address] [id number] [place] [address]- 8874 Aug, [facility] [place] [facility] [address] [id number] [place] [address]- 6472 Jul, 2013 [facility] [place] [facility] [address] [id number] [place] [address]- 9743 Jul, [facility] [place] [facility] [address] [id number] [place] [address] Jul, 2013 [facility] [place] [facility] [address] [id number] [place] [address]- 2265 Jul, 2013 [facility] [place] [facility] [address] [id number] [place] [address]- 3987 Jul, 2013 [facility] [place] [facility] [address] [id number] [place] [address]- 8640 Jul, [facility] [place] [facility] [address] [id number] [place] [address]- 2332 Jun, [facility] [place] [facility] [address] [id number] [place] [address]- 2616 Jun, [facility] [place] [facility] [address] [id number] [place] [address]- 0109 May, [facility] [place] [facility] [address] [id number] [place] [address]- 1983 May, [facility] [place] [facility] [address] [id number] [place] [address]- 6947 May, [facility] [place] [facility] [address] [id number] [place] [address]- 3741 May, [facility] [place] [facility] [address] [id number] [place] [address]- 0089 May, [facility] [place] [facility] [address] [id number] [place] [address]- 6983 May, [facility] [place] [facility] [address] [id number] [place] [address]- 8732 May, [facility] [place] [facility] [address] [id number] [place] [address]- 7501 May, [facility] [place] [facility] [address] [id number] [place] [address]- 0167 Apr, [facility] [place] [facility] [address] [id number] [place] [address]- 0347 Apr, [facility] [place] [facility] [address] [id number] [place] [address]- 9976 March, [facility] [place] [facility] [address] [id number] [place] [address]- 2321 March, [facility] [place] [facility] [address] [id number] [place] [address]- 5343 Feb, [facility] [place] [facility] [address] [id number] [place] [address]- 0258 Feb, [facility] [place] [facility] [address] [id number] [place] [address]- 9930 Feb, [facility] [place] [facility] [address] [id number] [place] [address]- 6902 Feb, [facility] [place] [facility] [address] [id number] [place] [address]- 5646 Feb, [facility] [place] [facility] [address] [id number] [place] [address]- 6339 Feb, [facility] [place] [facility] [address] [id number] [place] [address]- 5500 Feb, [facility] [place] [facility] [address] [id number] [place] [address]- 5698 Feb, [facility] [place] [facility] [address] [id number] [place] [address]- 0741 Feb, [facility] [place] [facility] [address] [id number] [place] [address]- 4218 Feb, [facility] [place] [facility] [address] [id number] [place] [address]- 5773 Jan, [facility] [place] [facility] [address] [id number] [place] [address]- 5950 Jan, [facility] [place] [facility] [address] [id number] [place] [address]- 7292 Jan, [facility] [place] [facility] [address] [id number] [place] [address]- 1783 Jan, [facility] [place] [facility] [address] [id number] [place] [address]- 5970 Jan, [facility] [place] [facility] [address] [id number] [place] [address]- 3603 Dec, [facility] [place] [facility] [address] [id number] [place] [address]- 3818 Dec, [facility] [place] [facility] [address] [id number] [place] [address]- 4730 Dec, [facility] [place] [facility] [address] [id number] [place] [address]- 6432 Dec, [facility] [place] [facility] [address] [id number] [place] [address]- 5545 Dec, [facility] [place] [facility] [address] [id number] [place] [address]- 3194 Dec, [facility] [place] [facility] [address] [id number] [place] [address]- 4414 Nov, [facility] [place] [facility] [address] [id number] [place] [address]- 1776 Nov, [facility] [place] [facility] [address] [id number] [place] [address]- 9434 Nov, [facility] [place] [facility] [address] [id number] [place] [address]- 8367 Nov, [facility] [place] [facility] [address] [id number] [place] [address]- 4212 Nov, [facility] [place] [facility] [address] [id number], [place] [address]- 2276 Nov, [facility] [address] [id number] [place] [address]- 7056 Nov, [facility] [place] [facility] [address] [id number] [place] [address]- 5181 Nov, [facility] [place] [facility] [address] [facility] [id number] [place] Oct, [facility] [place] [facility] [address] [id number] [place] [address]- 5740 Oct, [facility] [place] [facility] [address] [id number] [place] [address] Oct, [facility] [place] [facility] [address] [id number] [place] [address]- 1425 Oct, [facility] [place] [facility] [address] [id number] [place] [address]- 1043 Oct, [facility] [place] [facility] [address] [id number] [place] [address]- 7185 Oct, [facility] [place] [facility] [address] [id number] [place] [address]- 1616 Oct, [facility] [place] [facility] [address] [id number] [place] [address]- 1077 Oct, [facility] [place] [facility] [address] [id number], [place] [address]- 0283 Sep, [facility] [place] [facility] [address] [id number], [place] [address]- 7607 Sep, [facility] [place] [facility] [address] [id number] [place] [address]- 0532 Sep, [facility] [place] [facility] [address] [id number] [place] [address]- 9702 Sep, [facility] [place] [facility] [address] [facility] [id number], [place] [address]- 7423 Sep, [facility] [place] [facility] [address] [id number] [place] [address] 2542 Sep, [facility] [address] [id number] [place] [address]- 5960 Sep, [facility] [place] [facility] [address] [id number] [place] [address]- 3412 Sep, [facility] [place] [facility] [address] [id number] [place] [address]- 0872 Aug, [facility] [place] [facility] [address] [id number] [place] [address]- 3037 Aug, [facility] [place] [facility] [address] [id number] [place] [address]- 8133 Aug, [facility] [place] [facility] [address] [id number] [place] [address]- 4586 Jul, [facility] [place] [facility] [address] [id number] [place] [address]- 6761 Jun, [facility] [place] [facility] [address] [id number] [place] [address]- 1253 Jun, [facility] [place] [facility] [address] [id number] [place] [address]- 6812 Jun, [facility] [place] [facility] [address] [id number] [place] [address]- 7241 Jun, [facility] [place] [facility] [address] [id number] [place] [address]- 7337 Jun, [facility] [place] [facility] [address] [id number] [place] [address]- 2548 May, [facility] [place] [facility] [address] [id number] [place] [address]- 2970 May, [facility] [place] [facility] [address] [id number] [place] [address]- 2546 Apr, [facility] [place] [facility] [address] [id number] [place] [address]- 8772 Apr, [facility] [address] [id number] [place] [address]- 7403 March, [facility] [address] [id number] [place] [address]- 4666 March, [facility] [address] [id number] [place] [address]- 3390 March, [facility] [place] [facility] [address] [id number] [place] [address]- 8350 March, [facility] [address] [id number] [place] [address]- 4992 March, [facility] [address] [id number] [place] [address]- 9466 Feb, [facility] [address] [id number] [place] [address]- 6879 Feb, [facility] [address] [id number] [place] [address]- 9673 Feb, [facility] [address] [id number] [place] [address]- 5377 Jan, [facility] [address] [id number] [place] [address]- 3305 Dec, [facility] [place] [facility] [address] [id number] [place] [address]- 7600 Dec, [facility] [place] [facility] [address] [id number] [place] [address]- 0926 Dec, [facility] [place] [facility] [address] [id number] [place] [address]- 1912 Dec, [facility] [place] [facility] [address] [id number] [place] [address]- 5683 Nov, [facility] [place] [facility] [address] [id number] [place] [address]- 4631 Nov, [facility] [place] [facility] [address] [id number] [place] [address]- 3279 Nov, [facility] [address] [id number] [place] [address]- 0237 Nov, [facility] [place] [facility] [address] [id number] [place] [address]- 2069 Oct, [facility] [place] [facility] [address] [id number] [place] [address]- 3189 Oct, [facility] [place] [facility] [address] [id number] [place] [address]- 9161 Oct, [facility] [place] [facility] [address] [id number] [place] [address]- 4286 Oct, [facility] [place] [facility] [address] [id number] [place] [address]- 6538 14 Sep, 2012 [facility] [place] [facility] [address] [id number] [place] [address]- 9663 14 Sep, 2012 [facility] [place] [facility] [address] [id number] [place] [address]- 8581 Sep, [facility] [place] [facility] [address] [id number] [place] [address]- 5345 13 Sep, 2012 [facility] [place] [facility] [address] [facility] [id number] [place] [address]- 1410 Sep, [facility] [place] [facility] [address] [id number] [place] [address]- 7652 08 Sep, 2012 [facility] [place] [facility] [address] [id number], [place] [address]- 4087 Aug, [facility] [place] [facility] [address] [id number] [place] [address]- 6894 Aug, [facility] [place] [facility] [address] [id number] [place] [address]- 4505 Aug, [facility] [place] [facility] [address] [id number], [place] [address]- 2657 Jul, [facility] [place] [facility] [address] [id number] [place] [address] 2543 Jul, [facility] [place] [facility] [address] [id number] [place] [address]- 1162 Jun, [facility] [place] [facility] [address] [id number] [place] [address]- 1346 May, [facility] [place] [facility] [address] [id number] [place] [address]- 8623 May, [facility] [place] [facility] [address] [id number] [place] [address]- 1620 Apr, [facility] [place] [facility] [address] [id number] [place] [address]- 5880 Apr, [facility] [address] [id number] [place] [address]- 1769 March, [facility] [place] [facility] [address] [id number] [place] [address]- 3159 March, [facility] [place] [facility] [address] [id number] [place] [address]- 1101 Feb, [facility] [place] [facility] [address] [id number] [place] [address]- 3404 Feb, [facility] [place] [facility] [address] [id number] [place] [address]- 9323 Feb, [facility] [place] [facility] [address] [id number] [place] [address]- 2666 Feb, [facility] [place] [facility] [address] [id number] [place] [address]- 3053 Jan, [facility] [place] [facility] [address] [id number] [place] [address]- 0343 Jan, [facility] [place] [facility] [address] [id number] [place] [address]- 1220 Dec, [facility] [place] [facility] [address] [id number] [place] [address]- 5365 28 Dec, 2011 [facility] [address] [id number] [place] [address] 2546 Dec, [facility] [address] [id number] [place] [address] 2546 23 Dec, 2011 [facility] [address] [id number] [place] [address]- 2036 20 Dec, 2011 [facility] [address] [id number] [place] [address] 2546 15 Dec, 2011 [facility] [address] [id number] [place] [address]- 3816 10 Dec, 2011 [facility] [address] [id number] [place] [address]- 2546 09 Dec, 2011 [facility] [address] [id number] [place] [address]- 3402 08 Dec, 2011 [facility] [address] [id number] [place] [address]- 7948 07 Dec, 2011 [facility] [address] [id number] [place] [address]- 1727 02 Dec, 2011 [facility] [address] [id number] [place] [address]- 7462 02 Dec, 2011 [facility] [address] [id number] [place] [address] 2546 Dec, [facility] [address] [id number] [place] [address] 2542 Nov, [facility] [place] [facility] [address] [id number] [place] [address]- 3856 Nov, [facility] [place] [facility] [address] [id number] [place] [address]- 1616 Nov, [facility] [address] [facility] [id number] [place] [address]- 3529 Nov, [facility] [address] [id number] [place] [address]- 9611 Nov, [facility] [place] [facility] [address] [id number] [place] [address]- 2596 Nov, [facility] [place] [facility] [address] [id number] [place] [address]- 8907 Oct, [facility] [place] [facility] [address] [id number] [place] [address]- 4408 Oct, [facility] [place] [facility] [address] [id number] [place] [address]- 9030 Sep, [facility] [place] [facility] [address] [id number] [place] [address]- 9202 Sep, [facility] [place] [facility] [address] [id number] [place] [address]- 4693 Sep, [facility] [place] [facility] [address] [id number] [place] [address]- 4491 Sep, [facility] [place] [facility] [address] [id number] [place] [address]- 1240 Sep, [facility] [place] [facility] [address] [id number], [place] [address]- 0608 March, [facility] [place] [facility] [address] [id number] [place] [address]- 4884 Oct, [facility] [place] [facility] [address] [id number], [place] [address]- 7715 Oct, [facility] [place] [facility] [address] [id number] [place] [address] Oct, [facility] [place] [facility] [address] [id number] [place] [address] 24 Sep, 2010 [facility] [place] [facility] [address] [id number], [place] [address] 17 Sep, 2010 [facility] [place] [facility] [address] [id number], [place] [address] Sep, [facility] [address] [facility] [id number] [address] Sep, [facility] [address] [facility] [id number], [place] [address] Aug, [facility] [address] [facility] [id number], [place] [address] Oct, [facility] [address] [facility] [id number], [place] [address] Oct, [facility] [address] [facility] [id number], [place] [address] May, IMMUNIZATIONS No Known Immunizations SOCIAL HISTORY Never Assessed REASON FOR VISIT Kimber -Claude ROSADO PLAN OF CARE VITAL SIGNS Height 68 in 2018-07-23 Weight 258.6 lbs 2018-07-23 Temperature 98.3 degrees Fahrenheit 2018-07-23 Heart Rate 77 bpm 2018-07-23 Respiratory Rate 18 2018-07-23 Oximetry 98 % 2018-07-23 BMI 39.32 kg/m2 2018-07-23 Blood pressure systolic 140 mmHg 2018-07-23 Blood pressure diastolic 78 mmHg 2018-07-23 MEDICATIONS Medication Instructions Dosage Frequency Start Date End Date Duration Status Pantoprazole Sodium 40 MG TAKE ONE TABLET BY MOUTH ONCE DAILY 90 Active Propranolol HCl 20 MG TAKE ONE TABLET BY MOUTH TWICE DAILY 90 Active Sertraline HCl 100 MG TAKE TWO TABLETS BY MOUTH ONCE DAILY 30 Active Diflucan 150 MG 1 tablet Oct, 1 dose Not-Taking Amlodipine Besylate 10 mg TAKE ONE TABLET BY MOUTH DAILY 90 Active Triamcinolone Acetonide 0.1 % Externally Twice a day 1 application to affected area 12h 07 Sep, 2017 Not-Taking Advair Diskus 250-50 MCG/DOSE INHALE ONE PUFF BY MOUTH TWICE DAILY 30 Not-Taking VESIcare 10 mg Orally Once a day 1 tablet 24h 90 Active Medical Compression Stockings N/A as directed Aug, Not- Taking Valium 10 MG Orally Twice a day 1 tablet 12h 30 Jan, 2015 28 days Active RESULTS No Results PROCEDURES No Known procedures INSTRUCTIONS MEDICATIONS ADMINISTERED No Known Medications MEDICAL (GENERAL) HISTORY Type Description Date Medical History hypertension Medical History panic attacks Surgical History cholecystectomy 2008 Hospitalization History surgery
--- OUTSIDE RECORDS SUMMARY | 2018-12-11 10:16 | XMS REPORT ---
Author Author LEIDA ANDINO Organization [facility] Address [address] [place] [address] Care Team Providers Care Tower Watchman Name Role Phone LEIDA ANDINO Unavailable PROBLEMS Type Condition ICD9-CM Code DTW28-NI Code Onset Dates Condition Status SNOMED Code Problem Stress incontinence of urine N39.3 Active 97297180 Problem Anxiety F41.9 Active 84081898 Problem Anxiety disorder, unspecified F41.9 Active 805356255 Problem Unspecified episodic mood disorder F39 Active 326038505 Problem Unspecified personality disorder F60.9 Active 34761848 ALLERGIES No Information ENCOUNTERS Encounter Location Date Diagnosis [place] [id number] [place] [address] 67298- 8404 Aug, [facility] [id number] [place] [address] 12877- 7922 Jul, Anxiety F41.9 [place] [id number] [place] [address] 50851- 8328 Jun, Unspecified episodic mood disorder F39 ; Anxiety disorder, unspecified F41.9 and Unspecified personality disorder F60.9 [place] [id number] [place] [address] 56470- 1560 Jun, Anxiety disorder, unspecified F41.9 [place] [id number] [place] [address] 65536- 3547 May, Unspecified episodic mood disorder F39 ; Anxiety disorder, unspecified F41.9 and Unspecified personality disorder F60.9 [facility] [id number] [place] [address] 04233- 1517 May, Anxiety disorder, unspecified F41.9 [place] [id number] [place] [address] 17006- 7161 Apr, Anxiety disorder, unspecified F41.9 [place] [id number] [place] [address] 44034- 3590 Apr, Unspecified episodic mood disorder F39 ; Anxiety disorder, unspecified F41.9 and Unspecified personality disorder F60.9 [place] [address] [place] [address] 46976- 5970 March, Anxiety disorder, unspecified F41.9 [place] [id number] [place] [address] 69054- 6877 March, Unspecified episodic mood disorder F39 ; Anxiety disorder, unspecified F41.9 and Unspecified personality disorder F60.9 [place] [id number] [place] [address] 79024- 1267 March, Anxiety disorder, unspecified F41.9 [place] [id number] [place] [address] 91309- 9221 Feb, Unspecified episodic mood disorder F39 ; Anxiety disorder, unspecified F41.9 and Unspecified personality disorder F60.9 [place] [id number] [place] [address] 96548- 5857 Feb, Unspecified episodic mood disorder F39 ; Anxiety disorder, unspecified F41.9 and Unspecified personality disorder F60.9 [place] [address] [place] [address] 13005- 5065 Feb, Anxiety disorder, unspecified F41.9 [place] [id number] [place] [address] 58964- 7453 Jan, Unspecified episodic mood disorder F39 ; Anxiety disorder, unspecified F41.9 and Unspecified personality disorder F60.9 [place] [address] [place] [address] 72351- 0241 Jan, Anxiety F41.9 [place] [address] [place] [address] 02965- 8573 Jan, Anxiety disorder, unspecified F41.9 [facility] [address] [place] [address] 27915- 6715 Dec, Unspecified episodic mood disorder F39 ; Anxiety disorder, unspecified F41.9 and Unspecified personality disorder F60.9 [facility] [address] [place] [address] 81373- 9379 Dec, Anxiety F41.9 [facility] [id number] [place] [address] 05877- 6139 Dec, Anxiety disorder, unspecified F41.9 [facility] [id number] [place] [address] 62056- 6944 Dec, Unspecified episodic mood disorder F39 ; Anxiety disorder, unspecified F41.9 and Unspecified personality disorder F60.9 [facility] [id number] [place] [address] 37908- 4270 Nov, [facility] [id number] [place] [address] 50353- 0982 Nov, [facility] [id number] [place] [address] 07177- 0890 Nov, Unspecified episodic mood disorder F39 ; Anxiety disorder, unspecified F41.9 and Unspecified personality disorder F60.9 [facility] [address] [place] [address] 14688- 5653 Nov, Anxiety disorder, unspecified F41.9 [facility] [address] [place] [address] 71947- 1649 Oct, Unspecified episodic mood disorder F39 ; Anxiety disorder, unspecified F41.9 and Unspecified personality disorder F60.9 [facility] [address] [place] [address] 67369- 3624 Oct, Vaginal yeast infection B37.3 [facility] [address] [place] [address] 25076- 2628 Oct, [place] [id number] [place] [address] 71642- 3917 Oct, Anxiety disorder, unspecified F41.9 [place] [id number] [place] [address] 42335- 2292 Oct, Routine gynecological examination Z01.419 ; Screening for breast cancer Z12.31 and Vaginal yeast infection B37.3 [place] [address] 85042- 6684 Sep, Unspecified episodic mood disorder F39 ; Anxiety disorder, unspecified F41.9 and Unspecified personality disorder F60.9 [place] [address] 32300- 3215 Sep, [place] [address] 21674- 2850 Sep, Anxiety disorder, unspecified F41.9 [place] [address] 11680- 9438 Sep, Bronchitis J40 and Stress incontinence of urine N39.3 [place] [address] 94253- 0686 Sep, Stress incontinence of urine N39.3 ; Bronchitis J40 and Anxiety F41.9 [place] [address] 42867- 2001 Sep, [place] [address] 64785- 3863 Sep, Unspecified episodic mood disorder F39 ; Anxiety disorder, unspecified F41.9 and Unspecified personality disorder F60.9 [place] [address] 91549- 8705 Aug, Anxiety F41.9 ; Stress incontinence of urine N39.3 and Encounter for immunization Z23 [place] [id number] [place] [address] 91505- 8779 Aug, Anxiety disorder, unspecified F41.9 [facility] [address] [address]- 8430 Jul, Unspecified episodic mood disorder F39 ; Anxiety disorder, unspecified F41.9 and Unspecified personality disorder F60.9 [facility] [address] [address]- 1059 Jul, [facility] [id number] [place] [address] 18869- 2707 Jul, Unspecified episodic mood disorder F39 ; Anxiety disorder, unspecified F41.9 and Unspecified personality disorder F60.9 [facility] [id number] [place] [address] 84463- 1140 Jul, Anxiety disorder, unspecified F41.9 [facility] [address] [place] [address] 08452- 2738 Jun, Unspecified episodic mood disorder F39 ; Anxiety disorder, unspecified F41.9 and Unspecified personality disorder F60.9 [facility] [address] [place] [address] 61007- 3059 Jun, Anxiety disorder, unspecified F41.9 [facility] [address] [place] [address] 98107- 1631 Jun, Unspecified episodic mood disorder F39 ; Anxiety disorder, unspecified F41.9 and Unspecified personality disorder F60.9 [facility] [address] [place] [address] 51384- 8930 Jun, [facility] [address] [place] [address] 20664- 0892 May, Anxiety disorder, unspecified F41.9 [facility] [address] [place] [address] 00542- 5963 May, Unspecified episodic mood disorder F39 ; Anxiety disorder, unspecified F41.9 and Unspecified personality disorder F60.9 [facility] [address] [place] [address] 35001- 5523 Apr, Anxiety disorder, unspecified F41.9 [facility] [address] [place] [address] 32307- 4053 March, Unspecified episodic mood disorder F39 ; Anxiety disorder, unspecified F41.9 and Unspecified personality disorder F60.9 [facility] [id number] [place] [address] 35445- 9048 March, Bronchitis J40 [facility] [id number] [place] [address] 72178- 6514 March, Unspecified episodic mood disorder F39 ; Anxiety disorder, unspecified F41.9 and Unspecified personality disorder F60.9 [place] [id number] [place] [address] 24852- 9914 Feb, [facility] [id number] [place] [address] 96395- 1261 Feb, Unspecified episodic mood disorder F39 ; Anxiety disorder, unspecified F41.9 and Unspecified personality disorder F60.9 [facility] [id number] [place] [address] 28025- 8264 Feb, Bronchitis J40 [facility] [id number] [place] [address] 67312- 4710 Feb, Unspecified episodic mood disorder F39 ; Anxiety disorder, unspecified F41.9 and Unspecified personality disorder F60.9 [facility] [address] [place] [address] 65027- 3153 Jan, Unspecified episodic mood disorder F39 ; Anxiety disorder, unspecified F41.9 and Unspecified personality disorder F60.9 [facility] [id number] [place] [address] 63746- 1239 Jan, Bronchitis J40 [facility] [address] [place] [address] 18056- 1260 Jan, Unspecified episodic mood disorder F39 ; Anxiety disorder, unspecified F41.9 and Unspecified personality disorder F60.9 [facility] [address] [address]- 8375 Dec, Anxiety F41.9 [facility] [address] [place] [address] 39237- 2111 Dec, Unspecified episodic mood disorder F39 ; Anxiety disorder, unspecified F41.9 and Unspecified personality disorder F60.9 [place] [id number] [address] Dec, [facility] [address] [place] [address] 42080- 1237 Dec, Unspecified episodic mood disorder F39 ; Anxiety disorder, unspecified F41.9 and Unspecified personality disorder F60.9 [facility] [address] [address]- 9970 Nov, [facility] [address] [place] [address] 99854- 8871 Oct, Unspecified episodic mood disorder F39 ; Anxiety disorder, unspecified F41.9 and Unspecified personality disorder F60.9 [facility] [address] [place] [address] 11131- 9440 Oct, [facility] [address] [address] -[address] Oct, Acute upper respiratory infection, unspecified J06.9 ; Other viral agents as the cause of diseases classified elsewhere B97.89 and Cough R05 [facility] [address] [address]- 9676 Aug, Unspecified episodic mood disorder F39 ; Anxiety disorder, unspecified F41.9 and Unspecified personality disorder F60.9 [facility] [address], [place] [address]- 4976 Aug, [facility] [address] [place] [address] 55054- 6056 Aug, [facility] [address], [place] [address]- 6202 Aug, [facility] [address] [address]- 7817 Aug, Visit for TB skin test Z11.1 [facility] [address] [address]- 6859 Jul, [facility] [id number] [address]- 1052 Jul, [facility] [address] [address]- 5430 Jul, [facility] [address], [place] [address]- 4457 Jul, [facility] [address] [address]- 8593 Jul, [facility] [address] [address]- 9953 Jul, Unspecified episodic mood disorder F39 ; Anxiety disorder, unspecified F41.9 and Unspecified personality disorder F60.9 [facility] [address], [place] [address]- 1643 Jun, [facility] [address] [address]- 7133 Jun, Unspecified episodic mood disorder F39 ; Anxiety disorder, unspecified F41.9 and Unspecified personality disorder F60.9 [facility] [address] [address]- 8989 Jun, [facility] [address], [place] [address]- 1067 May, Unspecified episodic mood disorder F39 ; Anxiety disorder, unspecified F41.9 and Unspecified personality disorder F60.9 [facility] [address] [address]- 7265 May, [facility] [address], [place] [address]- 5929 May, [facility] [id number] [place] [address] 06343- 1098 May, Edema, unspecified R60.9 [facility] [address] [place] [address] 99763- 9024 Apr, [facility] [id number] [place] [address] 21576- 8279 Apr, Unspecified episodic mood disorder F39 ; Anxiety disorder, unspecified F41.9 and Unspecified personality disorder F60.9 [place] [id number] [place] [address] 26985- 2744 Apr, Anxiety F41.9 [place] [address] [place] [address] 50056- 9615 March, Unspecified episodic mood disorder F39 ; Anxiety disorder, unspecified F41.9 and Unspecified personality disorder F60.9 [facility] [address] [place] [address] 69185- 7974 March, Unspecified episodic mood disorder F39 ; Anxiety disorder, unspecified F41.9 and Unspecified personality disorder F60.9 [place] [address] [address]- 0384 Feb, Anxiety F41.9 [facility] [address] [place] [address] 18159- 6566 Feb, Unspecified episodic mood disorder F39 ; Anxiety disorder, unspecified F41.9 and Unspecified personality disorder F60.9 [facility] [address] [place] [address] 92333- 1553 Jan, Unspecified episodic mood disorder F39 ; Anxiety disorder, unspecified F41.9 and Unspecified personality disorder F60.9 [facility] [address] [place] [address] 66803- 1193 Jan, Unspecified episodic mood disorder F39 ; Anxiety disorder, unspecified F41.9 and Unspecified personality disorder F60.9 [facility] [address] [address]- 1287 Jan, Edema, unspecified R60.9 [facility] [address], [place] [address]- 9666 Dec, [facility] [id number] [place] [address] 68084- 0361 Dec, [facility] [id number] [place] [address] 01766- 8321 Dec, [facility] [id number] [place] [address] 40665- 3224 Dec, Unspecified episodic mood disorder F39 ; Anxiety disorder, unspecified F41.9 and Unspecified personality disorder F60.9 [facility] [id number] [place] [address] 75469- 7305 Nov, [facility] [address] [place] [address] 31058- 8249 Nov, Unspecified episodic mood disorder F39 ; Anxiety disorder, unspecified F41.9 and Unspecified personality disorder F60.9 [facility] [address] [address]- 7212 Oct, Unspecified episodic mood disorder F39 ; Anxiety disorder, unspecified F41.9 and Unspecified personality disorder F60.9 [facility] [address], [place] [address]- 3506 Oct, Unspecified episodic mood disorder F39 ; Anxiety disorder, unspecified F41.9 and Unspecified personality disorder F60.9 [facility] [address], [place] [address]- 6451 Sep, Unspecified episodic mood disorder F39 ; Anxiety disorder, unspecified F41.9 and Unspecified personality disorder F60.9 [facility] [id number], [place] [address]- 4135 Sep, Encounter for immunization Z23 [facility] [id number] [place] [address] 83700- 8922 Sep, Edema of left lower extremity R60.0 [facility] [address] [place] [address] 47990- 2123 Aug, Unspecified episodic mood disorder F39 ; Anxiety disorder, unspecified F41.9 and Unspecified personality disorder F60.9 [facility] [id number] [place] [address] 45464- 5414 Aug, [facility] [id number] [place] [address] 81758- 7876 Aug, Edema of left lower extremity R60.0 [facility] [id number] [place] [address] 65312- 7626 Aug, [facility] [id number] [place] [address] 03110- 0077 Aug, Unspecified episodic mood disorder F39 ; Anxiety disorder, unspecified F41.9 and Unspecified personality disorder F60.9 [facility] [address] [place] [address] 24884- 3422 Jul, Unspecified episodic mood disorder 296.90 ; Anxiety disorder , unspecified 300.00 and Unspecified personality disorder 301.9 [facility] [address] [place] [address] 99093- 8911 Jul, Unspecified episodic mood disorder 296.90 ; Anxiety disorder , unspecified 300.00 and Unspecified personality disorder 301.9 [facility] [address] [place] [address] 95184- 7948 Jul, [facility] [address] [place] [address] 53497- 5992 Jun, Unspecified episodic mood disorder 296.90 ; Anxiety disorder , unspecified 300.00 and Unspecified personality disorder 301.9 [facility] [address] [place] [address] 14752- 6223 May, Unspecified episodic mood disorder 296.90 ; Anxiety disorder , unspecified 300.00 and Unspecified personality disorder 301.9 [facility] [address] [place] [address] 29357- 3531 May, Anxiety disorder, unspecified 300.00 [facility] [id number] [place] [address] 68271- 3180 May, Anxiety disorder, unspecified 300.00 and Edema 782.3 [facility] [id number] [place] [address] 41722- 3763 May, Unspecified episodic mood disorder 296.90 ; Anxiety disorder , unspecified 300.00 and Unspecified personality disorder 301.9 [facility] [id number] [place] [address] 97320- 6611 Apr, [facility] [id number] [place] [address] 05579- 0093 Apr, Unspecified episodic mood disorder 296.90 ; Anxiety disorder , unspecified 300.00 and Personality disorder, unspecified 301.9 [facility] [id number] [place] [address] 48486- 0923 Apr, Unspecified episodic mood disorder 296.90 ; Anxiety disorder , unspecified 300.00 and Unspecified personality disorder 301.9 [facility] [address] [address]- 4731 March, [facility] [id number] [place] [address] 37556- 5469 March, Unspecified episodic mood disorder 296.90 ; Anxiety disorder , unspecified 300.00 and Unspecified personality disorder 301.9 [facility] [address] [place] [address] 66704- 7646 March, Unspecified episodic mood disorder 296.90 ; Anxiety disorder 300.00 and Unspecified personality disorder 301.9 [facility] [address] [place] [address] 69606- 6426 March, [facility] [place] [facility] [address] [id number] [place] [address]- 0107 March, [facility] [place] [facility] [address] [id number] [place] [address]- 1657 Feb, [facility] [place] [facility] [address] [id number] [place] [address]- 4196 Feb, [facility] [place] [facility] [address] [id number] [place] [address]- 7894 Feb, [facility] [place] [facility] [address] [id number] [place] [address]- 0596 Jan, [facility] [place] [facility] [address] [id number] [place] [address]- 4639 Jan, [facility] [place] [facility] [address] [id number] [place] [address]- 3353 Jan, [facility] [place] [facility] [address] [id number] [place] [address]- 8844 Jan, [facility] [place] [facility] [address] [id number] [place] 7342 Jan, [facility] [place] [facility] [address] [id number] [place] [address]- 7517 Jan, [facility] [place] [facility] [address] [id number] [address] Jan, [facility] [place] [facility] [address] [id number] [address]- 5533 Jan, [facility] [place] [facility] [address] [id number] [place] [address]- 2073 Jan, [facility] [place] [facility] [address] [id number] [place] [address]- 0540 Jan, [facility] [place] [facility] [address] [id number] [place] [address]- 1774 Jan, [facility] [place] [facility] [address] [id number] [place] [address]- 9746 05 Jan, 2014 [facility] [place] [facility] [address] [id number] [place] [address]- 4030 Jan, 2014 [facility] [place] [facility] [address] [id number] [place] [address]- 4546 Jan, 2014 [facility] [place] [facility] [address] [id number] [place] [address] Jan, 2014 [facility] [place] [facility] [address] [id number] [place] [address] Jan, 2014 [facility] [place] [facility] [address] [id number] [place] [address] Dec, 2014 [facility] [place] [facility] [address] [facility] [id number] [place] [address] Dec, 2014 [facility] [place] [facility] [address] [id number] [place] [address] Dec, 2014 [facility] [place] [facility] [address] [id number] [place] [address] Dec, [facility] [place] [facility] [address] [facility] [id number] [place] [address] Nov, [facility] [place] [facility] [address] [facility] [id number] [place] [address] Nov, [facility] [place] [facility] [address] [id number] [place] [address] Nov, [facility] [place] [facility] [address] [id number] [place] [address] Nov, [facility] [place] [facility] [address] [id number] [place] [address] Oct, [facility] [place] [facility] [address] [id number] [place] [address] Oct, [facility] [place] [facility] [address] [id number] [place] [address] Oct, [facility] [place] [facility] [address] [id number] [place] [address] Oct, [facility] [place] [facility] [address] [id number] [place] [address] Oct, [facility] [place] [facility] [address] [id number] [place] [address] Oct, [facility] [place] [facility] [address] [id number] [place] [address] Oct, [facility] [place] [facility] [address] [id number] [place] [address] Oct, [facility] [place] [facility] [address] [id number] [place] [address] Oct, [facility] [place] [facility] [address] [id number] [place] [address] Oct, [facility] [place] [facility] [address] [id number] [place] [address] 3312 Oct, [facility] [place] [facility] [address] [id number] [place] [address] 5214 Oct, [facility] [place] [facility] [address] [id number] [place] [address] 0[address] Oct, [facility] [place] [facility] [address] [id number] [place] [address] 1417 Oct, [facility] [place] [facility] [address] [id number] [place] [address] 4543 Oct, [facility] [place] [facility] [address] [id number] [place] [address] 9826 Oct, [facility] [place] [facility] [address] [id number] [place] [address] 5640 Sep, [facility] [place] [facility] [address] [id number] [place] [address] 9017 Sep, [facility] [place] [facility] [address] [id number] [place] [address] 2918 Sep, [facility] [place] [facility] [address] [id number] [place] [address]- 6060 Sep, [facility] [place] [facility] [address] [id number] [place] [address]- 3098 Sep, [facility] [place] [facility] [address] [id number] [place] [address]- 0660 Sep, [facility] [place] [facility] [address] [id number] [place] [address]- 0883 Sep, [facility] [place] [facility] [address] [id number] [place] [address]- 5835 Sep, [facility] [place] [facility] [address] [id number] [place] [address]- 9464 Sep, [facility] [place] [facility] [address] [id number] [place] [address]- 9693 Sep, [facility] [place] [facility] [address] [id number] [place] [address]- 2945 Aug, [facility] [place] [facility] [address] [id number] [place] [address]- 0850 30 Aug, 2014 [facility] [place] [facility] [address] [id number] [place] [address] 8832 Aug, [facility] [place] [facility] [address] [id number] [place] [address]- 3059 14 Aug, 2014 [facility] [place] [facility] [address] [id number] [address] 4[address] Aug, [facility] [place] [facility] [address] [id number] [place] [address]- 7453 Aug, [facility] [place] [facility] [address] [id number] [place] [address]- 3572 Aug, [facility] [place] [facility] [address] [id number] [place] [address]- 6117 Aug, [facility] [place] [facility] [address] [id number] [place] [address]- 5648 Jul, 2013 [facility] [place] [facility] [address] [id number] [place] [address]- 5900 Jul, [facility] [place] [facility] [address] [id number] [place] [address] 4190 Jul, [facility] [place] [facility] [address] [id number] [place] [address]- 2552 Jul, [facility] [place] [facility] [address] [id number] [place] [address] 3293 Jul, [facility] [place] [facility] [address] [id number] [place] [address]- 9787 Jul, [facility] [place] [facility] [address] [id number] [place] [address] 3933 Jun, [facility] [place] [facility] [address] [id number] [place] [address]- 9037 Jun, [facility] [place] [facility] [address] [id number] [place] [address]- 2110 May, [facility] [place] [facility] [address] [id number] [place] [address]- 2349 May, [facility] [place] [facility] [address] [id number] [place] [address]- 0426 May, [facility] [place] [facility] [address] [id number] [place] [address]- 6988 May, [facility] [place] [facility] [address] [id number] [place] [address]- 2524 May, [facility] [place] [facility] [address] [id number] [place] [address]- 9477 May, [facility] [place] [facility] [address] [id number] [place] May, [facility] [place] [facility] [address] [id number] [place] [address]- 2082 May, [facility] [place] [facility] [address] [id number] [place] [address]- 6845 Apr, [facility] [place] [facility] [address] [id number] [place] [address]- 8086 Apr, [facility] [place] [facility] [address] [id number] [place] [address]- 5137 March, [facility] [place] [facility] [address] [id number] [place] [address]- 8370 March, [facility] [place] [facility] [address] [id number] [place] [address]- 1140 Feb, [facility] [place] [facility] [address] [id number] [place] [address]- 7692 Feb, [facility] [place] [facility] [address] [id number] [place] [address]- 3311 Feb, [facility] [place] [facility] [address] [id number] [place] [address]- 1660 Feb, [facility] [place] [facility] [address] [id number] [place] [address]- 1661 Feb, [facility] [place] [facility] [address] [id number] [place] [address]- 0993 Feb, [facility] [place] [facility] [address] [id number] [place] [address]- 4053 Feb, [facility] [place] [facility] [address] [id number] [place] [address]- 4460 Feb, [facility] [place] [facility] [address] [id number] [place] [address]- 1246 Feb, [facility] [place] [facility] [address] [id number] [place] [address]- 7722 Feb, [facility] [place] [facility] [address] [id number] [place] [address]- 3220 Jan, [facility] [place] [facility] [address] [id number] [place] [address]- 0250 Jan, [facility] [place] [facility] [address] [id number] [place] [address]- 2156 Jan, [facility] [place] [facility] [address] [id number] [place] [address]- 4886 Jan, [facility] [place] [facility] [address] [id number] [place] [address]- 3216 Jan, [facility] [place] [facility] [address] [id number] [place] [address]- 0702 Dec, [facility] [place] [facility] [address] [id number] [place] [address]- 6967 Dec, [facility] [place] [facility] [address] [id number] [place] [address]- 4668 Dec, [facility] [place] [facility] [address] [id number] [place] [address]- 0231 Dec, [facility] [place] [facility] [address] [id number] [place] [address]- 9120 Dec, [facility] [place] [facility] [address] [id number] [place] [address]- 3062 Dec, [facility] [place] [facility] [address] [id number] [place] [address]- 9407 Nov, [facility] [place] [facility] [address] [id number] [place] [address]- 1416 Nov, [facility] [place] [facility] [address] [id number] [place] [address]- 7070 Nov, [facility] [place] [facility] [address] [id number] [place] [address]- 8010 Nov, [facility] [place] [facility] [address] [id number] [place] [address]- 2206 Nov, [facility] [place] [facility] [address] [id number] [place] [address]- 9493 Nov, [facility] [place] [facility] [address] [id number] [place] [address]- 0241 Nov, [facility] [place] [facility] [address] [id number] [place] [address]- 6294 Nov, [facility] [place] [facility] [address] [facility] [id number] [place] [address]- 4663 Oct, [facility] [place] [facility] [address] [id number] [place] [address]- 7804 Oct, [facility] [place] [facility] [address] [id number] [place] [address]- 0825 Oct, [facility] [place] [facility] [address] [id number] [place] [address]- 8223 Oct, [facility] [place] [facility] [address] [id number] [place] [address]- 7973 Oct, [facility] [place] [facility] [address] [id number] [place] [address]- 5314 Oct, [facility] [place] [facility] [address] [id number] [place] [address]- 3831 Oct, [facility] [place] [facility] [address] [id number] [place] [address]- 4522 Oct, [facility] [place] [facility] [address] [id number], [place] [address]- 0086 Sep, [facility] [place] [facility] [address] [id number], [place] [address]- 3784 Sep, [facility] [place] [facility] [address] [id number] [place] [address]- 3179 Sep, [facility] [place] [facility] [address] [id number] [place] [address]- 6756 Sep, [facility] [place] [facility] [address] [id number], [place] [address]- 6708 Sep, [facility] [place] [facility] [address] [id number] [place] [address]- 6503 Sep, [facility] [address] [id number] [place] [address]- 7017 Sep, [facility] [place] [facility] [address] [id number] [place] [address]- 0467 Sep, [facility] [place] [facility] [address] [id number] [place] [address]- 9483 Aug, [facility] [place] [facility] [address] [id number] [place] [address]- 7171 Aug, [facility] [place] [facility] [address] [id number] [place] [address]- 6904 Aug, [facility] [place] [facility] [address] [id number] [place] [address]- 5576 Jul, [facility] [place] [facility] [address] [id number] [place] [address]- 0732 Jun, [facility] [place] [facility] [address] [id number] [place] [address]- 3021 Jun, [facility] [place] [facility] [address] [id number] [place] [address]- 3260 Jun, [facility] [place] [facility] [address] [id number] [place] [address]- 1952 Jun, [facility] [place] [facility] [address] [id number] [place] [address]- 0693 Jun, [facility] [place] [facility] [address] [id number] [place] [address]- 7273 May, [facility] [place] [facility] [address] [id number] [place] [address]- 2803 May, [facility] [place] [facility] [address] [id number] [place] [address]- 2546 Apr, [facility] [place] [facility] [address] [id number] [place] [address]- 2684 Apr, [facility] [place] [facility] [address] [id number] [place] [address]- 6865 March, [facility] [address] [id number] [place] [address]- 8234 March, [facility] [address] [id number] [place] [address]- 5425 March, [facility] [address] [id number] [place] [address]- 0078 March, [facility] [address] [id number] [place] [address]- 3971 March, [facility] [address] [id number] [place] [address]- 4306 Feb, [facility] [address] [id number] [place] [address]- 3028 Feb, [facility] [address] [id number] [place] [address]- 6229 Feb, [facility] [address] [id number] [place] [address]- 4678 Jan, [facility] [address] [id number] [place] [address]- 3799 Dec, [facility] [address] [id number] [place] [address]- 6608 Dec, [facility] [place] [facility] [address] [id number] [place] [address]- 0523 Dec, [facility] [place] [facility] [address] [id number] [place] [address]- 5573 Dec, [facility] [place] [facility] [address] [id number] [place] [address]- 2620 Nov, [facility] [place] [facility] [address] [id number] [place] [address]- 0668 Nov, [facility] [place] [facility] [address] [id number] [place] [address]- 5592 Nov, [facility] [place] [facility] [address] [id number] [place] [address]- 0851 Nov, [facility] [place] [facility] [address] [id number] [place] [address]- 1276 Oct, [facility] [place] [facility] [address] [id number] [place] [address]- 0343 Oct, [facility] [place] [facility] [address] [id number] [place] [address]- 7431 Oct, [facility] [place] [facility] [address] [id number] [place] [address]- 6632 Oct, [facility] [place] [facility] [address] [id number] [place] [address]- 7478 Sep, [facility] [place] [facility] [address] [id number] [place] [address]- 4564 14 Sep, 2012 [facility] [place] [facility] [address] [id number] [place] [address]- 0748 Sep, [facility] [place] [facility] [address] [id number] [place] [address]- 9332 13 Sep, 2012 [facility] [place] [facility] [address] [facility] [id number] [place] [address]- 4538 Sep, [facility] [place] [facility] [address] [id number] [place] [address]- 2674 Sep, [facility] [place] [facility] [address] [id number], [place] [address]- 3643 Aug, [facility] [place] [facility] [address] [id number] [place] [address]- 4156 Aug, [facility] [place] [facility] [address] [facility] [id number] [place] [address]- 6873 Aug, [facility] [place] [facility] [address] [facility] [id number], [place] [address]- 2171 Jul, [facility] [place] [facility] [address] [id number] [place] [address]- 9409 Jul, [facility] [place] [facility] [address] [id number] [place] [address]- 0856 Jun, [facility] [place] [facility] [address] [id number] [place] [address]- 4266 May, [facility] [place] [facility] [address] [id number] [place] [address]- 0543 May, [facility] [place] [facility] [address] [id number] [place] [address]- 3225 Apr, [facility] [place] [facility] [address] [id number] [place] [address]- 0176 Apr, [facility] [place] [facility] [address] [id number] [place] [address]- 8208 March, [facility] [place] [facility] [address] [id number] [place] [address]- 6805 March, [facility] [place] [facility] [address] [id number] [place] [address]- 4319 Feb, [facility] [place] [facility] [address] [id number] [place] [address]- 2616 Feb, [facility] [place] [facility] [address] [id number] [place] [address]- 7647 Feb, [facility] [place] [facility] [address] [id number] [place] [address]- 5226 Feb, [facility] [place] [facility] [address] [id number] [place] [address]- 5672 Jan, [facility] [place] [facility] [address] [id number] [place] [address]- 4695 Jan, [facility] [place] [facility] [address] [id number] [place] [address]- 8776 Dec, [facility] [place] [facility] [address] [id number] [place] [address]- 9467 28 Dec, 2011 [facility] [address] [id number] [place] [address]- 7726 26 Dec, 2011 [facility] [place] [facility] [address] [id number] [place] [address] 2546 23 Dec, 2011 [facility] [place] [facility] [address] [id number] [place] [address]- 8496 20 Dec, 2011 [facility] [place] [facility] [address] [id number] [place] [address] 2546 15 Dec, 2011 [facility] [address] [id number] [place] [address]- 9106 10 Dec, 2011 [facility] [place] [facility] [address] [id number] [place] [address]- 2546 09 Dec, 2011 [facility] [address] [facility] [id number] [place] [address] 254 08 Dec, 2011 [facility] [address] [id number] [place] [address]- 2542 07 Dec, 2011 [facility] [place] [facility] [address] [id number] [place] [address]- 0835 02 Dec, 2011 [facility] [address] [facility] [id number] [place] [address]- 1249 02 Dec, 2011 [facility] [place] [facility] [address] [facility] [id number] [place] [address] 2546 Dec, [facility] [place] [facility] [address] [id number] [place] [address] 254 Nov, [facility] [place] [facility] [address] [id number] [place] [address]- 3106 Nov, [facility] [place] [facility] [address] [id number] [place] [address]- 6986 Nov, [facility] [place] [facility] [address] [facility] [id number] [place] [address]- 3958 Nov, [facility] [address] [id number] [place] [address]- 4607 Nov, [facility] [place] [facility] [address] [id number] [place] [address]- 6635 Nov, [facility] [place] [facility] [address] [id number] [place] [address]- 7938 Oct, [facility] [place] [facility] [address] [id number] [place] [address]- 6765 Oct, [facility] [place] [facility] [address] [id number] [place] [address]- 7198 Sep, [facility] [place] [facility] [address] [id number] [place] [address]- 6028 Sep, [facility] [place] [facility] [address] [id number] [place] [address]- 4280 Sep, [facility] [place] [facility] [address] [id number] [place] [address]- 6982 Sep, [facility] [place] [facility] [address] [id number] [place] [address]- 3349 Sep, [facility] [place] [facility] [address] [id number] [place] [address]- 7334 March, [facility] [place] [facility] [address] [id number] [place] [address]- 5299 Oct, [facility] [place] [facility] [address] [id number], [place] [address]- 7948 Oct, [facility] [place] [facility] [address] [id number] [place] [address]- 7417 Oct, [facility] [place] [facility] [address] [id number] [place] [address]- 1902 24 Sep, 2010 [facility] [place] [facility] [address] [id number], [place] [address]- 9324 17 Sep, 2010 [facility] [place] [facility] [address] [id number], [place] [address]- 2546 Sep, [facility] [address] [id number] [address]- 2546 Sep, [facility] [address] [id number] [address]- 2546 Aug, [facility] [address] [id number], [place] [address]- 2546 Oct, [facility] [address] [id number], [place] [address]- 2546 Oct, [facility] [address] [facility] [id number], [place] [address]- 2546 May, IMMUNIZATIONS No Known Immunizations SOCIAL HISTORY Never Assessed REASON FOR VISIT Controlled Med Refill 07/02/18 PLAN OF CARE VITAL SIGNS MEDICATIONS Medication [...]
--- OUTSIDE RECORDS SUMMARY | 2018-12-11 10:17 | XMS REPORT ---
Author Author LEIDA ANDINO Organization [facility] Address [address] [place] [address] Care Team Providers Care Credit Relationship Manager Name Role Phone LEIDA ANDINO Unavailable PROBLEMS Type Condition ICD9-CM Code MEU35-VI Code Onset Dates Condition Status SNOMED Code Problem Stress incontinence of urine N39.3 Active 01242452 Problem Anxiety F41.9 Active 21804814 Problem Anxiety disorder, unspecified F41.9 Active 146626877 Problem Unspecified episodic mood disorder F39 Active 442389332 Problem Unspecified personality disorder F60.9 Active [id number] ALLERGIES No Information ENCOUNTERS Encounter Location Date Diagnosis [place] [address] 22101- 7348 Aug, [facility] [address] [place] [id number] [place] [address] 39982- 5823 Jul, [place] [address] [place] [id number] [place] [address] 38451- 4134 Jun, Unspecified episodic mood disorder F39 ; Anxiety disorder, unspecified F41.9 and Unspecified personality disorder F60.9 [place] [address] [place] [id number] [place] [address] 46821- 2944 Jun, Anxiety disorder, unspecified F41.9 [place] [id number] [place] [id number] [place] [address] 61643- 2823 May, Unspecified episodic mood disorder F39 ; Anxiety disorder, unspecified F41.9 and Unspecified personality disorder F60.9 [facility] [address] [place] [id number] [place] [address] 10203- 9504 May, Anxiety disorder, unspecified F41.9 [place] [address] [place] [id number] [place] [address] 82047- 3185 Apr, Anxiety disorder, unspecified F41.9 [facility] [id number] [place] [address] 18629- 3627 Apr, Unspecified episodic mood disorder F39 ; Anxiety disorder, unspecified F41.9 and Unspecified personality disorder F60.9 [facility] [address] [place] [id number] [place] [address] 69237- 2286 March, Anxiety disorder, unspecified F41.9 [facility] [address] [place] [id number] [place] [address] 78225- 8834 March, Unspecified episodic mood disorder F39 ; Anxiety disorder, unspecified F41.9 and Unspecified personality disorder F60.9 [place] [address] [place] [id number] [place] [address] 30879- 8236 March, Anxiety disorder, unspecified F41.9 [place] [address] [place] [id number] [place] [address] 04930- 8694 Feb, Unspecified episodic mood disorder F39 ; Anxiety disorder, unspecified F41.9 and Unspecified personality disorder F60.9 [place] [address] [place] [id number] [place] [address] 59635- 3905 Feb, Unspecified episodic mood disorder F39 ; Anxiety disorder, unspecified F41.9 and Unspecified personality disorder F60.9 [place] [id number] [place] [address] 24736- 9496 Feb, Anxiety disorder, unspecified F41.9 [facility] [address] [place] [id number] [place] [address] 08165- 2322 Jan, Unspecified episodic mood disorder F39 ; Anxiety disorder, unspecified F41.9 and Unspecified personality disorder F60.9 [place] [id number] [place] [address] 91049- 9022 Jan, Anxiety F41.9 [facility] [id number] [place] [address] 33602- 9379 Jan, Anxiety disorder, unspecified F41.9 [facility] [address] [address]- 8921 Dec, Unspecified episodic mood disorder F39 ; Anxiety disorder, unspecified F41.9 and Unspecified personality disorder F60.9 [facility] [id number] [place] [address] 60574- 5417 Dec, Anxiety F41.9 [facility] [address] [place] [id number] [place] [address] 82768- 0103 Dec, Anxiety disorder, unspecified F41.9 [facility] [address] [place] [id number] [place] [address] 40663- 2897 Dec, Unspecified episodic mood disorder F39 ; Anxiety disorder, unspecified F41.9 and Unspecified personality disorder F60.9 [place] [address] [place] [id number] [place] [address] 19112- 9166 Nov, [facility] [address] [place] [id number] [place] [address] 72606- 7035 Nov, [facility] [address] [place] [id number] [place] [address] 34386- 5663 Nov, Unspecified episodic mood disorder F39 ; Anxiety disorder, unspecified F41.9 and Unspecified personality disorder F60.9 [place] [id number] [place] [address] 81919- 2537 Nov, Anxiety disorder, unspecified F41.9 [facility] [address] [place] [id number] [place] [address] 94723- 8239 Oct, Unspecified episodic mood disorder F39 ; Anxiety disorder, unspecified F41.9 and Unspecified personality disorder F60.9 [facility] [address] [place] [id number] [place] [address] 21602- 9044 Oct, Vaginal yeast infection B37.3 [facility] [id number] [place] [address] 55073- 8105 Oct, [place] [address] [place] [id number] [place] [address] 15636- 4784 Oct, Anxiety disorder, unspecified F41.9 [place] [address] 47225- 2997 Oct, Routine gynecological examination Z01.419 ; Screening for breast cancer Z12.31 and Vaginal yeast infection B37.3 [place] [address] 43972- 8937 Sep, Unspecified episodic mood disorder F39 ; Anxiety disorder, unspecified F41.9 and Unspecified personality disorder F60.9 [place] [address] 42423- 7308 Sep, [place] [address] 02074- 0506 Sep, Anxiety disorder, unspecified F41.9 [place] [address] 53458- 4320 Sep, Bronchitis J40 and Stress incontinence of urine N39.3 [place] [address] 81209- 8179 Sep, Stress incontinence of urine N39.3 ; Bronchitis J40 and Anxiety F41.9 [place] [address] [place] [id number] [place] [address] 86213- 6280 Sep, [place] [address] [place] [id number] [place] [address] 02305- 4881 Sep, Unspecified episodic mood disorder F39 ; Anxiety disorder, unspecified F41.9 and Unspecified personality disorder F60.9 [place] [address] 70531- 3045 Aug, Anxiety F41.9 ; Stress incontinence of urine N39.3 and Encounter for immunization Z23 [place] [address] [place] [id number] [place] [address] 11045- 5351 Aug, Anxiety disorder, unspecified F41.9 [facility] [address], [place] [address]- 6437 Jul, Unspecified episodic mood disorder F39 ; Anxiety disorder, unspecified F41.9 and Unspecified personality disorder F60.9 [facility] [address] [address]- 1761 Jul, [facility] [id number] [place] [address] 53342- 3225 Jul, Unspecified episodic mood disorder F39 ; Anxiety disorder, unspecified F41.9 and Unspecified personality disorder F60.9 [facility] [address] [place] [id number] [place] [address] 80327- 4442 Jul, Anxiety disorder, unspecified F41.9 [facility] [address] [place] [address] 09503- 5258 Jun, Unspecified episodic mood disorder F39 ; Anxiety disorder, unspecified F41.9 and Unspecified personality disorder F60.9 [facility] [id number] [place] [address] 35361- 1295 Jun, Anxiety disorder, unspecified F41.9 [facility] [address] [place] [id number] [place] [address] 81380- 5149 Jun, Unspecified episodic mood disorder F39 ; Anxiety disorder, unspecified F41.9 and Unspecified personality disorder F60.9 [facility] [address] [address]- 4380 Jun, [facility] [id number] [place] [address] 28123- 0477 May, Anxiety disorder, unspecified F41.9 [facility] [address], [place] [address]- 6292 May, Unspecified episodic mood disorder F39 ; Anxiety disorder, unspecified F41.9 and Unspecified personality disorder F60.9 [facility] [id number] [place] [address] 58393- 9010 Apr, Anxiety disorder, unspecified F41.9 [facility] [address] [place] [address] 93368- 9101 March, Unspecified episodic mood disorder F39 ; Anxiety disorder, unspecified F41.9 and Unspecified personality disorder F60.9 [facility] [address] [place] [id number] [place] [address] 68086- 0689 March, Bronchitis J40 [facility] [address] [place] [id number] [place] [address] 63468- 6975 March, Unspecified episodic mood disorder F39 ; Anxiety disorder, unspecified F41.9 and Unspecified personality disorder F60.9 [facility] [address] [place] [id number] [place] [address] 73819- 3061 Feb, [facility] [address] [place] [id number] [place] [address] 56602- 3016 Feb, Unspecified episodic mood disorder F39 ; Anxiety disorder, unspecified F41.9 and Unspecified personality disorder F60.9 [facility] [address] [place] [id number] [place] [address] 43261- 8137 Feb, Bronchitis J40 [facility] [address] [place] [id number] [place] [address] 67230- 7727 Feb, Unspecified episodic mood disorder F39 ; Anxiety disorder, unspecified F41.9 and Unspecified personality disorder F60.9 [facility] [address] [place] [id number] [place] [address] 41448- 9028 Jan, Unspecified episodic mood disorder F39 ; Anxiety disorder, unspecified F41.9 and Unspecified personality disorder F60.9 [facility] [address] [place] [id number] [place] [address] 45061- 2409 Jan, Bronchitis J40 [facility] [address] [place] [address] 24283- 2773 Jan, Unspecified episodic mood disorder F39 ; Anxiety disorder, unspecified F41.9 and Unspecified personality disorder F60.9 [facility] [address] [address]- 0104 Dec, Anxiety F41.9 [facility] [id number] [place] [address] 48734- 2739 Dec, Unspecified episodic mood disorder F39 ; Anxiety disorder, unspecified F41.9 and Unspecified personality disorder F60.9 [facility] [id number] [id number] Dec, [facility] [address] [place] [id number] [place] [address] 54590- 4808 Dec, Unspecified episodic mood disorder F39 ; Anxiety disorder, unspecified F41.9 and Unspecified personality disorder F60.9 [place] [address] [place] [address] 62095- 8218 Nov, [facility] [address] [place] [id number] [place] [address] 13601- 5001 Oct, Unspecified episodic mood disorder F39 ; Anxiety disorder, unspecified F41.9 and Unspecified personality disorder F60.9 [facility] [address] [place] [address] 38321- 1838 Oct, [facility] [id number] [place] [address] 24261 -6934 Oct, Acute upper respiratory infection, unspecified J06.9 ; Other viral agents as the cause of diseases classified elsewhere B97.89 and Cough R05 [facility] [address] [place] [address] 14279- 5255 Aug, Unspecified episodic mood disorder F39 ; Anxiety disorder, unspecified F41.9 and Unspecified personality disorder F60.9 [facility] [address] [place] [address] 45552- 6093 Aug, [facility] [address] [place] [address] 71963- 0947 Aug, [facility] [address], [place] [address]- 8090 Aug, [facility] [address], [place] [address]- 9438 Aug, Visit for TB skin test Z11.1 [facility] [address] [address]- 3799 Jul, [facility] [address] [place] [id number] [place] [address] 33841- 9551 Jul, [facility] [address], [place] [address]- 0964 Jul, [facility] [address], [place] [address]- 3790 Jul, [facility] [address] [address]- 9858 Jul, [facility] [address], [place] [address]- 2715 Jul, Unspecified episodic mood disorder F39 ; Anxiety disorder, unspecified F41.9 and Unspecified personality disorder F60.9 [facility] [address], [place] [address]- 9960 Jun, [facility] [address], [place] [address]- 0109 Jun, Unspecified episodic mood disorder F39 ; Anxiety disorder, unspecified F41.9 and Unspecified personality disorder F60.9 [facility] [address] [address]- 7773 Jun, [facility] [address], [place] [address]- 8942 May, Unspecified episodic mood disorder F39 ; Anxiety disorder, unspecified F41.9 and Unspecified personality disorder F60.9 [facility] [address], [place] [address]- 5987 May, [facility] [address], [place] [address]- 3640 May, [facility] [address] [place] [address] 45019- 5774 May, Edema, unspecified R60.9 [facility] [address] [place] [address] 07073- 4731 Apr, [facility] [address] [place] [id number] [place] [address] 01815- 1838 Apr, Unspecified episodic mood disorder F39 ; Anxiety disorder, unspecified F41.9 and Unspecified personality disorder F60.9 [facility] [address] [place] [id number] [place] [address] 17780- 9596 Apr, Anxiety F41.9 [facility] [address] [place] [id number] [place] [address] 71376- 2227 March, Unspecified episodic mood disorder F39 ; Anxiety disorder, unspecified F41.9 and Unspecified personality disorder F60.9 [facility] [address] [place] [address] 19771- 1783 March, Unspecified episodic mood disorder F39 ; Anxiety disorder, unspecified F41.9 and Unspecified personality disorder F60.9 [facility] [address], [place] [address]- 4901 Feb, Anxiety F41.9 [facility] [id number] [place] [address] 31444- 5255 Feb, Unspecified episodic mood disorder F39 ; Anxiety disorder, unspecified F41.9 and Unspecified personality disorder F60.9 [facility] [address] [place] [address] 00558- 1855 Jan, Unspecified episodic mood disorder F39 ; Anxiety disorder, unspecified F41.9 and Unspecified personality disorder F60.9 [facility] [address], [place] [address]- 5689 Jan, Unspecified episodic mood disorder F39 ; Anxiety disorder, unspecified F41.9 and Unspecified personality disorder F60.9 [facility] [address] [place] [address] 61327- 0829 Jan, Edema, unspecified R60.9 [facility] [address] [place] [address] 09918- 0863 Dec, [facility] [address] [place] [id number] [place] [address] 64860- 0213 Dec, [facility] [address] [place] [id number] [place] [address] 30405- 4258 Dec, [facility] [address] [place] [id number] [place] [address] 75741- 0226 Dec, Unspecified episodic mood disorder F39 ; Anxiety disorder, unspecified F41.9 and Unspecified personality disorder F60.9 [facility] [address] [place] [id number] [place] [address] 86213- 5669 Nov, [facility] [address] [place] [address] 24800- 7566 Nov, Unspecified episodic mood disorder F39 ; Anxiety disorder, unspecified F41.9 and Unspecified personality disorder F60.9 [facility] [address] [place] [address] 09266- 2560 Oct, Unspecified episodic mood disorder F39 ; Anxiety disorder, unspecified F41.9 and Unspecified personality disorder F60.9 [facility] [address], [place] [address]- 8497 Oct, Unspecified episodic mood disorder F39 ; Anxiety disorder, unspecified F41.9 and Unspecified personality disorder F60.9 [facility] [address], [place] [address]- 5357 Sep, Unspecified episodic mood disorder F39 ; Anxiety disorder, unspecified F41.9 and Unspecified personality disorder F60.9 [facility] [address] [place] [address] 31296- 2389 Sep, Encounter for immunization Z23 [facility] [address] [place] [id number] [place] [address] 52540- 4244 Sep, Edema of left lower extremity R60.0 [facility] [address] [place] [id number] [place] [address] 42347- 9869 Aug, Unspecified episodic mood disorder F39 ; Anxiety disorder, unspecified F41.9 and Unspecified personality disorder F60.9 [facility] [address] [place] [id number] [place] [address] 89409- 5561 Aug, [facility] [address] [place] [id number] [place] [address] 19368- 9016 Aug, Edema of left lower extremity R60.0 [facility] [address] [place] [id number] [place] [address] 40701- 7491 Aug, [facility] [address] [place] [id number] [place] [address] 99056- 0612 Aug, Unspecified episodic mood disorder F39 ; Anxiety disorder, unspecified F41.9 and Unspecified personality disorder F60.9 [facility] [address] [place] [id number] [place] [address] 16951- 8948 Jul, Unspecified episodic mood disorder 296.90 ; Anxiety disorder , unspecified 300.00 and Unspecified personality disorder 301.9 [facility] [address] [place] [address] 75226- 1581 Jul, Unspecified episodic mood disorder 296.90 ; Anxiety disorder , unspecified 300.00 and Unspecified personality disorder 301.9 [facility] [address] [place] [id number] [place] [address] 74537- 5343 Jul, [facility] [address] [place] [id number] [place] [address] 38092- 0533 Jun, Unspecified episodic mood disorder 296.90 ; Anxiety disorder , unspecified 300.00 and Unspecified personality disorder 301.9 [facility] [address] [place] [address] [address]- 9412 May, Unspecified episodic mood disorder 296.90 ; Anxiety disorder , unspecified 300.00 and Unspecified personality disorder 301.9 [facility] [address] [place] [address] 23286- 4160 May, Anxiety disorder, unspecified 300.00 [facility] [address] [place] [address] 84423- 5182 May, Anxiety disorder, unspecified 300.00 and Edema 782.3 [facility] [address] [place] [id number] [place] [address] 32226- 2436 May, Unspecified episodic mood disorder 296.90 ; Anxiety disorder , unspecified 300.00 and Unspecified personality disorder 301.9 [facility] [id number] [place] [address] 09329- 0974 Apr, [facility] [address] [place] [id number] [place] [address] 24651- 2682 Apr, Unspecified episodic mood disorder 296.90 ; Anxiety disorder , unspecified 300.00 and Personality disorder, unspecified 301.9 [facility] [address] [place] [id number] [place] [address] 94162- 1823 Apr, Unspecified episodic mood disorder 296.90 ; Anxiety disorder , unspecified 300.00 and Unspecified personality disorder 301.9 [facility] [address], [place] [address]- 8178 March, [facility] [address] [place] [id number] [place] [address] 72357- 1241 March, Unspecified episodic mood disorder 296.90 ; Anxiety disorder , unspecified 300.00 and Unspecified personality disorder 301.9 [facility] [address] [place] [address] 09252- 5456 March, Unspecified episodic mood disorder 296.90 ; Anxiety disorder 300.00 and Unspecified personality disorder 301.9 [facility] [address] [place] [address] 79239- 6687 March, [facility] [place] [facility] [address] [id number] [place] [address]- 2353 March, [facility] [place] [facility] [address] [id number] [place] [address]- 2916 Feb, [facility] [place] [facility] [address] [facility] [id number] [place] [address]- 1777 Feb, [facility] [place] [facility] [address] [id number] [place] [address]- 7739 Feb, [facility] [place] [facility] [address] [id number] [place] [address]- 0609 Jan, [facility] [place] [facility] [address] [id number] [place] [address]- 1594 Jan, [facility] [place] [facility] [address] [id number] [place] [address]- 7804 Jan, [facility] [place] [facility] [address] [id number] [address]- 8061 Jan, [facility] [place] [facility] [address] [id number], [place] [address]- 8783 Jan, [facility] [place] [facility] [address] [facility] [id number][place] [address]- 6880 Jan, [facility] [place] [facility] [address] [facility] [id number] [address] Jan, [facility] [place] [facility] [address] [id number], [place] [address]- 4180 Jan, [facility] [place] [facility] [address] [id number], [place] [address]- 5841 Jan, [facility] [place] [facility] [address] [id number], [place] [address]- 5376 Jan, [facility] [place] [facility] [address] [facility] [id number], [place] [address]- 9044 Jan, [facility] [place] [facility] [address] [id number] [place] [address]- 0419 05 Jan, 2014 [facility] [place] [facility] [address] [id number] [place] [address]- 8496 Jan, 2014 [facility] [place] [facility] [address] [id number] [place] [address]- 2746 Jan, 2014 [facility] [place] [facility] [address] [facility] [id number] [place] [address]- 8688 Jan, 2014 [facility] [place] [facility] [address] [id number] [place] [address]- 7318 Jan, 2014 [facility] [place] [facility] [address] [id number] [place] [address]- 4205 Dec, 2014 [facility] [place] [facility] [address] [facility] [id number] [place] [address]- 2461 Dec, 2014 [facility] [place] [facility] [address] [facility] [id number] [place] [address]- 0080 Dec, 2014 [facility] [place] [facility] [address] [facility] [id number] [place] [address]- 5557 Dec, [facility] [place] [facility] [address] [id number] [address]- 6951 Nov, [facility] [place] [facility] [address] [facility] [id number] [place] [address] Nov, [facility] [place] [facility] [address] [facility] [id number] [place] [address] Nov, [facility] [place] [facility] [address] [facility] [id number] [place] [address] Nov, [facility] [place] [facility] [address] [facility] [id number] [place] [address] Oct, [facility] [place] [facility] [address] [facility] [id number] [place] [address] Oct, [facility] [place] [facility] [address] [facility] [id number] [place] [address] Oct, [facility] [place] [facility] [address] [id number] [place] [address] Oct, [facility] [place] [facility] [address] [id number] [place] [address] Oct, [facility] [place] [facility] [address] [id number] [place] [address] Oct, [facility] [place] [facility] [address] [id number] [place] [address] Oct, [facility] [place] [facility] [address] [id number] [place] [address] Oct, [facility] [place] [facility] [address] [id number] [place] [address] Oct, [facility] [place] [facility] [address] [id number] [place] [address] Oct, [facility] [place] [facility] [address] [id number] [place] [address] Oct, [facility] [place] [facility] [address] [id number] [place] [address]118 Oct, [facility] [place] [facility] [address] [id number] [place] [address] 9906 Oct, [facility] [place] [facility] [address] [id number] [place] [address] 3730 Oct, [facility] [place] [facility] [address] [id number] [place] [address]- 2529 Oct, [facility] [place] [facility] [address] [id number] [place] [address] 8350 Oct, [facility] [place] [facility] [address] [id number] [place] [address]- 4727 Sep, [facility] [place] [facility] [address] [id number] [place] [address] 1717 Sep, [facility] [place] [facility] [address] [id number], [place] [address] Sep, [facility] [place] [facility] [address] [id number] [place] [address]- 7184 Sep, [facility] [place] [facility] [address] [id number] [place] [address]- 0175 Sep, [facility] [place] [facility] [address] [id number] [place] [address] 4666 Sep, [facility] [place] [facility] [address] [id number] [place] [address]- 4670 Sep, [facility] [place] [facility] [address] [id number] [place] [address]- 2529 Sep, [facility] [place] [facility] [address] [id number] [place] [address]- 0108 Sep, [facility] [place] [facility] [address] [id number] [place] [address]- 1742 Sep, [facility] [place] [facility] [address] [id number] [place] [address]- 4336 Aug, [facility] [place] [facility] [address] [id number] [place] [address]- 5531 30 Aug, 2014 [facility] [place] [facility] [address] [facility] [id number] [place] [address]- 4198 Aug, [facility] [place] [facility] [address] [id number], [place] [address] 4[address] Aug, [facility] [place] [facility] [address] [id number], [place] [address] 8993 Aug, [facility] [place] [facility] [address] [id number] [place] [address]- 1007 Aug, [facility] [place] [facility] [address] [id number] [place] [address]- 1117 Aug, [facility] [place] [facility] [address] [facility] [id number] [place] [address]- 9883 Aug, [facility] [place] [facility] [address] [id number] [place] [address]- 7525 Jul, 2013 [facility] [place] [facility] [address] [id number] [place] [address]- 6867 Jul, 2013 [facility] [place] [facility] [address] [id number] [place] [address]- 7[address] Jul, 2013 [facility] [place] [facility] [address] [id number] [place] [address]- 7905 Jul, 2013 [facility] [place] [facility] [address] [id number] [place] [address]- 4171 Jul, 2013 [facility] [place] [facility] [address] [id number] [place] [address]- 2819 Jul, 2013 [facility] [place] [facility] [address] [id number] [place] [address]- 0070 Jun, [facility] [place] [facility] [address] [id number] [place] [address]- 4387 Jun, [facility] [place] [facility] [address] [id number] [place] [address]- 8193 May, [facility] [place] [facility] [address] [id number] [place] [address]- 0015 May, [facility] [place] [facility] [address] [id number] [place] [address]- 5327 May, [facility] [place] [facility] [address] [id number] [place] [address]- 7571 May, [facility] [place] [facility] [address] [id number] [place] [address]- 5054 May, [facility] [place] [facility] [address] [id number] [place] [address]- 5039 May, [facility] [place] [facility] [address] [id number] [place] [address]- 9422 May, [facility] [place] [facility] [address] [id number] [place] [address]- 9187 May, [facility] [place] [facility] [address] [id number] [place] [address]- 7664 Apr, [facility] [place] [facility] [address] [id number] [place] [address]- 8940 Apr, [facility] [place] [facility] [address] [id number] [place] [address]- 2123 March, [facility] [place] [facility] [address] [id number] [place] [address]- 1154 March, [facility] [place] [facility] [address] [id number] [place] [address]- 4703 Feb, [facility] [place] [facility] [address] [id number] [place] [address]- 6224 Feb, [facility] [place] [facility] [address] [id number] [place] [address]- 1029 Feb, [facility] [place] [facility] [address] [id number] [place] [address]- 7797 Feb, [facility] [place] [facility] [address] [id number] [place] [address]- 4596 Feb, [facility] [place] [facility] [address] [id number] [place] [address]- 4399 Feb, [facility] [place] [facility] [address] [id number] [place] [address]- 1322 Feb, [facility] [place] [facility] [address] [id number], [place] [address]- 9857 Feb, [facility] [place] [facility] [address] [id number] [place] [address]- 2853 Feb, [facility] [place] [facility] [address] [id number] [place] [address]- 2241 Feb, [facility] [place] [facility] [address] [id number] [place] [address]- 9114 Jan, [facility] [place] [facility] [address] [id number] [place] [address]- 9875 Jan, [facility] [place] [facility] [address] [id number] [place] [address]- 2156 Jan, [facility] [place] [facility] [address] [id number] [place] [address]- 4176 Jan, [facility] [place] [facility] [address] [id number] [place] [address]- 9256 Jan, [facility] [place] [facility] [address] [id number] [place] [address]- 6246 Dec, [facility] [place] [facility] [address] [id number] [place] [address]- 5906 Dec, [facility] [place] [facility] [address] [id number] [place] [address]- 4436 Dec, [facility] [place] [facility] [address] [id number] [place] [address]- 3155 Dec, [facility] [place] [facility] [address] [id number] [place] [address]- 8817 Dec, [facility] [place] [facility] [address] [id number] [place] [address]- 9389 Dec, [facility] [place] [facility] [address] [id number] [place] [address]- 2754 Nov, [facility] [place] [facility] [address] [id number] [place] [address]- 2185 Nov, [facility] [place] [facility] [address] [id number] [place] [address]- 0566 Nov, [facility] [place] [facility] [address] [id number] [place] [address]- 0681 Nov, [facility] [place] [facility] [address] [id number] [place] [address]- 9996 Nov, [facility] [place] [facility] [address] [id number] [place] [address]- 0462 Nov, [facility] [address] [id number] [place] [address]- 1869 Nov, [facility] [place] [facility] [address] [id number] [place] [address]- 7882 Nov, [facility] [place] [facility] [address] [id number] [place] [address] Oct, [facility] [place] [facility] [address] [id number] [place] [address]- 7154 Oct, [facility] [place] [facility] [address] [id number] [place] [address]- 6497 Oct, [facility] [place] [facility] [address] [id number] [place] [address]- 1342 Oct, [facility] [place] [facility] [address] [id number] [place] [address]- 5695 Oct, [facility] [place] [facility] [address] [id number] [place] [address]- 5772 Oct, [facility] [place] [facility] [address] [id number] [place] [address]- 2311 Oct, [facility] [place] [facility] [address] [id number] [place] [address]- 6397 Oct, [facility] [place] [facility] [address] [id number] [place] [address]- 4860 Sep, [facility] [place] [facility] [address] [id number], [place] [address]- 1630 Sep, [facility] [place] [facility] [address] [id number] [place] [address]- 7058 Sep, [facility] [place] [facility] [address] [id number] [place] [address]- 6735 Sep, [facility] [place] [facility] [address] [id number] [place] [address]- 0480 Sep, [facility] [place] [facility] [address] [id number] [place] [address]- 6008 Sep, [facility] [place] [facility] [address] [id number] [place] [address]- 6547 Sep, [facility] [place] [facility] [address] [id number] [place] [address]- 8213 Sep, [facility] [place] [facility] [address] [id number] [place] [address]- 7902 Aug, [facility] [place] [facility] [address] [id number] [place] [address]- 8742 Aug, [facility] [place] [facility] [address] [id number] [place] [address]- 8348 Aug, [facility] [place] [facility] [address] [id number] [place] [address]- 2545 Jul, [facility] [place] [facility] [address] [id number] [place] [address]- 4293 Jun, [facility] [place] [facility] [address] [id number] [place] [address]- 2002 Jun, [facility] [place] [facility] [address] [id number] [place] [address]- 3286 Jun, [facility] [place] [facility] [address] [id number] [place] [address]- 6843 Jun, [facility] [place] [facility] [address] [id number] [place] [address]- 6185 Jun, [facility] [place] [facility] [address] [id number], [place] [address]- 0252 May, [facility] [place] [facility] [address] [id number] [place] [address]- 7425 May, [facility] [place] [facility] [address] [id number] [place] [address]- 7665 Apr, [facility] [place] [facility] [address] [id number] [place] [address]- 2043 Apr, [facility] [place] [facility] [address] [id number] [place] [address]- 2765 March, [facility] [address] [id number] [place] [address]- 8281 March, [facility] [place] [facility] [address] [id number] [place] [address]- 4848 March, [facility] [address] [id number] [place] [address]- 1886 March, [facility] [address] [id number] [place] [address]- 4431 March, [facility] [address] [id number] [place] [address]- 9376 Feb, [facility] [address] [id number] [place] [address]- 0414 Feb, [facility] [address] [id number] [place] [address]- 6278 Feb, [facility] [address] [id number] [place] [address]- 4607 Jan, [facility] [address] [id number] [place] [address]- 8762 Dec, [facility] [address] [id number] [place] [address]- 1397 Dec, [facility] [address] [id number] [place] [address]- 2436 Dec, [facility] [place] [facility] [address] [id number] [place] Dec, [facility] [place] [facility] [address] [id number] [place] [address]- 8020 Nov, [facility] [place] [facility] [address] [id number] [place] [address]- 5767 Nov, [facility] [place] [facility] [address] [id number], [place] [address]- 2084 Nov, [facility] [place] [facility] [address] [id number] [place] [address]- 0964 Nov, [facility] [place] [facility] [address] [id number] [place] [address]894 Oct, [facility] [place] [facility] [address] [id number] [place] 9131 Oct, [facility] [place] [facility] [address] [id number] [place] [address]- 7762 Oct, [facility] [place] [facility] [address] [id number] [place] [address]89 Oct, [facility] [place] [facility] [address] [id number] [place] [address]- 7015 Sep, [facility] [place] [facility] [address] [id number] [place] [address]- 1986 Sep, [facility] [place] [facility] [address] [id number] [place] [address]- 1101 Sep, [facility] [place] [facility] [address] [id number] [place] [address]- 3633 Sep, [facility] [place] [facility] [address] [id number] [place] [address]- 8327 Sep, [facility] [place] [facility] [address] [id number], [place] [address]- 6155 Sep, [facility] [place] [facility] [address] [id number], [place] [address]- 1927 Aug, [facility] [place] [facility] [address] [id number] [place] [address]- 3629 Aug, [facility] [place] [facility] [address] [id number], [place] [address]- 5444 Aug, [facility] [place] [facility] [address] [id number] [place] [address]- 4443 Jul, [facility] [place] [facility] [address] [id number] [place] [address]- 2546 Jul, [facility] [address] [id number] [place] [address]- 5006 Jun, [facility] [place] [facility] [address] [id number] [place] [address]- 2546 May, [facility] [address] [id number] [place] [address]- 2486 May, [facility] [address] [id number] [place] [address]- 3906 Apr, [facility] [address] [id number] [place] [address]- 3006 Apr, [facility] [address] [id number] [place] [address]- 9896 March, [facility] [address] [id number] [place] [address]- 2416 March, [facility] [address] [id number] [place] [address]- 0262 Feb, [facility] [address] [id number] [place] [address]- 0736 Feb, [facility] [address] [id number] [place] [address]- 8086 Feb, [facility] [address] [id number] [place] [address]- 2546 Feb, [facility] [address] [id number] [place] [address]- 6956 Jan, [facility] [place] [facility] [address] [id number] [place] [address]- 5026 Jan, [facility] [address] [id number] [place] [address]- 2546 Dec, [facility] [place] [facility] [address] [id number] [place] [address]- 8973 Dec, [facility] [address] [id number] [place] [address]- 6827 Dec, [facility] [place] [facility] [address] [id number] [place] [address]- 0546 23 Dec, 2011 [facility] [place] [facility] [address] [facility] [id number] [place] [address]- 0226 20 Dec, 2011 [facility] [place] [facility] [address] [id number] [place] [address]- 8485 15 Dec, 2011 [facility] [place] [facility] [address] [id number] [place] [address]- 6967 10 Dec, 2011 [facility] [place] [facility] [address] [facility] [id number] [place] [address]- 3970 09 Dec, 2011 [facility] [id number] [address]- 1036 08 Dec, 2011 [facility] [place] [facility] [address] [facility] [id number] [place] [address]- 5141 07 Dec, 2011 [facility] [place] [facility] [address] [id number] [place] [address]- 8521 02 Dec, 2011 [facility] [place] [facility] [address] [facility] [id number] [place] [address]- 2096 02 Dec, 2011 [facility] [place] [facility] [address] [id number] [place] [address]- 3684 Dec, [facility] [place] [facility] [address] [facility] [id number] [place] [address]- 3966 Nov, [facility] [place] [facility] [address] [facility] [id number] [place] [address]- 5262 Nov, [facility] [place] [facility] [address] [facility] [id number] [place] [address]- 7982 Nov, [facility] [place] [facility] [address] [facility] [id number] [place] [address]- 2675 Nov, [facility] [place] [facility] [address] [id number] [place] [address]- 1421 Nov, [facility] [address] [id number] [place] [address]- 4886 Nov, [facility] [place] [facility] [address] [id number] [place] [address]- 8206 Oct, [facility] [place] [facility] [address] [id number] [place] [address]- 3687 Oct, [facility] [place] [facility] [address] [id number] [place] [address]- 2944 Sep, [facility] [place] [facility] [address] [id number] [place] [address]- 8295 Sep, [facility] [place] [facility] [address] [id number] [place] [address]- 8723 Sep, [facility] [address] [id number] [place] [address]- 6186 Sep, [facility] [place] [facility] [address] [id number] [place] [address]- 0763 Sep, [facility] [place] [facility] [address] [id number] [place] [address]- 5706 March, [facility] [place] [facility] [address] [id number] [place] [address]- 3397 Oct, [facility] [place] [facility] [address] [id number] [place] [address]- 1933 Oct, [facility] [place] [facility] [address] [id number] [place] [address]- 6118 Oct, [facility] [place] [facility] [address] [id number] [place] [address]- 9071 24 Sep, 2010 [facility] [place] [facility] [address] [id number] [place] [address]- 7144 17 Sep, 2010 [facility] [place] [facility] [address] [id number] [place] [address]- 7940 Sep, [facility] [address] [facility] [id number], [place] [address]- 2546 Sep, [facility] [id number] [address]- 2546 Aug, [facility] [address] [id number] [address]- 2546 Oct, [facility] [id number], [place] [address]- 2546 Oct, [facility] [address] [facility] [id number], [place] [address]- 2546 May, IMMUNIZATIONS No Known Immunizations SOCIAL HISTORY Never Assessed REASON FOR VISIT Controlled Refill Request- Due 06/04 PLAN OF CARE VITAL SIGNS MEDICATIONS Medication [...]
--- OUTSIDE RECORDS SUMMARY | 2018-12-11 10:17 | XMS REPORT ---
Author Author SANJEEV PHELPS [facility] Address [address] [place] [address] Care Team Providers Care Corporate Learning Consultant Name Role Phone SANJEEV PHELPS Unavailable PROBLEMS Type Condition ICD9-CM Code OEM62-DE Code Onset Dates Condition Status SNOMED Code Problem Stress incontinence of urine N39.3 Active 12102055 Problem Anxiety F41.9 Active 04758884 Problem Anxiety disorder, unspecified F41.9 Active 682745089 Problem Unspecified episodic mood disorder F39 Active 706832522 Problem Unspecified personality disorder F60.9 Active 30738251 ALLERGIES No Information ENCOUNTERS Encounter Location Date Diagnosis [place] [id number] [place] [address] 98979- 6685 Aug, [facility] [id number] [place] [address] 90615- 9700 Jul, [place] [id number] [place] [address] 40690- 3807 Jun, Unspecified episodic mood disorder F39 ; Anxiety disorder, unspecified F41.9 and Unspecified personality disorder F60.9 [place] [id number] [place] [address] 57954- 3865 Jun, Anxiety disorder, unspecified F41.9 [facility] [id number] [place] [address] 15889- 4317 May, Unspecified episodic mood disorder F39 ; Anxiety disorder, unspecified F41.9 and Unspecified personality disorder F60.9 [facility] [id number] [place] [address] 60879- 5110 May, Anxiety disorder, unspecified F41.9 [place] [id number] [place] [address] 68929- 9680 Apr, Anxiety disorder, unspecified F41.9 [place] [id number] [place] [address] 87532- 9448 Apr, Unspecified episodic mood disorder F39 ; Anxiety disorder, unspecified F41.9 and Unspecified personality disorder F60.9 [place] [id number] [place] [address] 62834- 2074 March, Anxiety disorder, unspecified F41.9 [place] [id number] [place] [address] 14100- 6691 March, Unspecified episodic mood disorder F39 ; Anxiety disorder, unspecified F41.9 and Unspecified personality disorder F60.9 [place] [id number] [place] [address] 32150- 9964 March, Anxiety disorder, unspecified F41.9 [place] [id number] [place] [address] 17079- 0582 Feb, Unspecified episodic mood disorder F39 ; Anxiety disorder, unspecified F41.9 and Unspecified personality disorder F60.9 [place] [id number] [place] [address] 85398- 0597 Feb, Unspecified episodic mood disorder F39 ; Anxiety disorder, unspecified F41.9 and Unspecified personality disorder F60.9 [place] [id number] [place] [address] 75125- 1266 Feb, Anxiety disorder, unspecified F41.9 [place] [id number] [place] [address] 01076- 7722 Jan, Unspecified episodic mood disorder F39 ; Anxiety disorder, unspecified F41.9 and Unspecified personality disorder F60.9 [place] [id number] [place] [address] 30483- 7136 Jan, Anxiety F41.9 [place] [id number] [place] [address] 44266- 3981 Jan, Anxiety disorder, unspecified F41.9 [facility] [id number] [place] [address] 72696- 2054 Dec, Unspecified episodic mood disorder F39 ; Anxiety disorder, unspecified F41.9 and Unspecified personality disorder F60.9 [facility] [id number] [place] [address] 76527- 0896 Dec, Anxiety F41.9 [facility] [id number] [place] [address] 27017- 8075 Dec, Anxiety disorder, unspecified F41.9 [facility] [id number] [place] [address] 57605- 8128 Dec, Unspecified episodic mood disorder F39 ; Anxiety disorder, unspecified F41.9 and Unspecified personality disorder F60.9 [place] [id number] [place] [address] 72903- 8866 Nov, [facility] [id number] [place] [address] 67819- 2011 Nov, [facility] [id number] [place] [address] 69800- 4923 Nov, Unspecified episodic mood disorder F39 ; Anxiety disorder, unspecified F41.9 and Unspecified personality disorder F60.9 [place] [id number] [place] [address] 87000- 2562 Nov, Anxiety disorder, unspecified F41.9 [facility] [id number] [place] [address] 25524- 4098 Oct, Unspecified episodic mood disorder F39 ; Anxiety disorder, unspecified F41.9 and Unspecified personality disorder F60.9 [facility] [id number] [place] [address] 95418- 3320 Oct, Vaginal yeast infection B37.3 [facility] [id number] [place] [address] 71749- 4958 Oct, [place] [id number] [place] [address] 19361- 1524 Oct, Anxiety disorder, unspecified F41.9 [place] [id number] [place] [address] 14212- 5371 Oct, Routine gynecological examination Z01.419 ; Screening for breast cancer Z12.31 and Vaginal yeast infection B37.3 [place] [address] 84729- 6946 Sep, Unspecified episodic mood disorder F39 ; Anxiety disorder, unspecified F41.9 and Unspecified personality disorder F60.9 [place] [address] 12756- 2993 Sep, [place] [address] 41885- 0722 Sep, Anxiety disorder, unspecified F41.9 [place] [address] 04346- 9223 Sep, Bronchitis J40 and Stress incontinence of urine N39.3 [place] [address] 81381- 0473 Sep, Stress incontinence of urine N39.3 ; Bronchitis J40 and Anxiety F41.9 [place] [address] 59936- 8578 Sep, [place] [address] 59126- 5447 Sep, Unspecified episodic mood disorder F39 ; Anxiety disorder, unspecified F41.9 and Unspecified personality disorder F60.9 [place] [address] 06725- 3257 Aug, Anxiety F41.9 ; Stress incontinence of urine N39.3 and Encounter for immunization Z23 [place] [id number] [place] [address] 51436- 4961 Aug, Anxiety disorder, unspecified F41.9 [facility] [address] [address]- 5234 Jul, Unspecified episodic mood disorder F39 ; Anxiety disorder, unspecified F41.9 and Unspecified personality disorder F60.9 [facility] [id number] [place] [address] 59256- 3764 Jul, [facility] [id number] [place] [address] 82062- 8962 Jul, Unspecified episodic mood disorder F39 ; Anxiety disorder, unspecified F41.9 and Unspecified personality disorder F60.9 [facility] [id number] [place] [address] 41334- 1882 Jul, Anxiety disorder, unspecified F41.9 [facility] [id number] [place] [address] 80939- 2024 Jun, Unspecified episodic mood disorder F39 ; Anxiety disorder, unspecified F41.9 and Unspecified personality disorder F60.9 [facility] [id number] [place] [address] 26611- 2209 Jun, Anxiety disorder, unspecified F41.9 [facility] [id number] [place] [address] 58755- 4653 Jun, Unspecified episodic mood disorder F39 ; Anxiety disorder, unspecified F41.9 and Unspecified personality disorder F60.9 [facility] [id number] [place] [address] 07258- 5244 Jun, [facility] [id number] [place] [address] 54110- 3499 May, Anxiety disorder, unspecified F41.9 [facility] [id number] [place] [address] 22332- 0430 May, Unspecified episodic mood disorder F39 ; Anxiety disorder, unspecified F41.9 and Unspecified personality disorder F60.9 [facility] [id number] [place] [address] 19272- 6671 Apr, Anxiety disorder, unspecified F41.9 [facility] [id number] [place] [address] 06739- 6691 March, Unspecified episodic mood disorder F39 ; Anxiety disorder, unspecified F41.9 and Unspecified personality disorder F60.9 [facility] [id number] [place] [address] 32415- 9478 March, Bronchitis J40 [facility] [id number] [place] [address] 91685- 8195 March, Unspecified episodic mood disorder F39 ; Anxiety disorder, unspecified F41.9 and Unspecified personality disorder F60.9 [facility] [id number] [place] [address] 82388- 2743 Feb, [facility] [id number] [place] [address] 49179- 0793 Feb, Unspecified episodic mood disorder F39 ; Anxiety disorder, unspecified F41.9 and Unspecified personality disorder F60.9 [facility] [id number] [place] [address] 20741- 3537 Feb, Bronchitis J40 [facility] [id number] [place] [address] 32710- 0660 Feb, Unspecified episodic mood disorder F39 ; Anxiety disorder, unspecified F41.9 and Unspecified personality disorder F60.9 [facility] [address] [place] [address] 16205- 7792 Jan, Unspecified episodic mood disorder F39 ; Anxiety disorder, unspecified F41.9 and Unspecified personality disorder F60.9 [facility] [id number] [place] [address] 79054- 9964 Jan, Bronchitis J40 [facility] [id number] [place] [address] 98625- 5920 Jan, Unspecified episodic mood disorder F39 ; Anxiety disorder, unspecified F41.9 and Unspecified personality disorder F60.9 [facility] [address] [address]- 5677 Dec, Anxiety F41.9 [facility] [id number] [place] [address] 81575- 8869 Dec, Unspecified episodic mood disorder F39 ; Anxiety disorder, unspecified F41.9 and Unspecified personality disorder F60.9 [facility] [id number] [id number] Dec, [facility] [id number] [place] [address] 28317- 8946 Dec, Unspecified episodic mood disorder F39 ; Anxiety disorder, unspecified F41.9 and Unspecified personality disorder F60.9 [facility] [address] [place] [address]- 8370 Nov, [facility] [id number] [place] [address] 69919- 7800 Oct, Unspecified episodic mood disorder F39 ; Anxiety disorder, unspecified F41.9 and Unspecified personality disorder F60.9 [facility] [id number] [place] [address] 41214- 7175 Oct, [facility] [id number] [place] [address] -3017 Oct, Acute upper respiratory infection, unspecified J06.9 ; Other viral agents as the cause of diseases classified elsewhere B97.89 and Cough R05 [facility] [address] [place] [address]- 6814 Aug, Unspecified episodic mood disorder F39 ; Anxiety disorder, unspecified F41.9 and Unspecified personality disorder F60.9 [facility] [address], [place] [address]- 3620 Aug, [facility] [id number] [place] [address] 08971- 2610 Aug, [facility] [id number], [place] [address]- 8355 Aug, [facility] [id number] [place] [address]- 5200 Aug, Visit for TB skin test Z11.1 [facility] [id number], [place] [address]- 8745 Jul, [facility] [id number] [place] [address]- 3184 Jul, [facility] [id number], [place] [address]- 7552 Jul, [facility] [id number], [place] [address]- 6682 Jul, [facility] [id number], [place] [address]- 7827 Jul, [facility] [id number], [place] [address]- 8899 Jul, Unspecified episodic mood disorder F39 ; Anxiety disorder, unspecified F41.9 and Unspecified personality disorder F60.9 [facility] [address], [place] [address]- 3768 Jun, [facility] [id number], [place] [address]- 7525 Jun, Unspecified episodic mood disorder F39 ; Anxiety disorder, unspecified F41.9 and Unspecified personality disorder F60.9 [facility] [id number], [place] [address]- 9559 Jun, [facility] [id number], [place] [address]- 6211 May, Unspecified episodic mood disorder F39 ; Anxiety disorder, unspecified F41.9 and Unspecified personality disorder F60.9 [facility] [id number], [place] [address]- 3319 May, [facility] [id number], [place] [address]- 4914 May, [facility] [id number] [place] [address] 21685- 0901 May, Edema, unspecified R60.9 [facility] [id number] [place] [address] 62214- 0474 Apr, [facility] [id number] [place] [address] 63837- 8219 Apr, Unspecified episodic mood disorder F39 ; Anxiety disorder, unspecified F41.9 and Unspecified personality disorder F60.9 [place] [id number] [place] [address] 83284- 8289 Apr, Anxiety F41.9 [place] [id number] [place] [address] 87084- 9974 March, Unspecified episodic mood disorder F39 ; Anxiety disorder, unspecified F41.9 and Unspecified personality disorder F60.9 [place] [address] [place] [address] 06877- 5077 March, Unspecified episodic mood disorder F39 ; Anxiety disorder, unspecified F41.9 and Unspecified personality disorder F60.9 [place] [id number] [place] [address] 52474- 6739 Feb, Anxiety F41.9 [facility] [id number] [place] [address] 26862- 3704 Feb, Unspecified episodic mood disorder F39 ; Anxiety disorder, unspecified F41.9 and Unspecified personality disorder F60.9 [facility] [address] [place] [address] 19444554- 5613 Jan, Unspecified episodic mood disorder F39 ; Anxiety disorder, unspecified F41.9 and Unspecified personality disorder F60.9 [place] [address] [place] [address] 07714- 8456 Jan, Unspecified episodic mood disorder F39 ; Anxiety disorder, unspecified F41.9 and Unspecified personality disorder F60.9 [facility] [address], [place] [address]- 8354 Jan, Edema, unspecified R60.9 [facility] [id number], [place] [address]- 6933 Dec, [facility] [id number] [place] [address] 36789- 9545 Dec, [facility] [id number] [place] [address] 47573- 3948 Dec, [facility] [id number] [place] [address] 66435- 8146 Dec, Unspecified episodic mood disorder F39 ; Anxiety disorder, unspecified F41.9 and Unspecified personality disorder F60.9 [facility] [id number] [place] [address] 37117- 2895 Nov, [facility] [id number] [place] [address] 70336- 4870 Nov, Unspecified episodic mood disorder F39 ; Anxiety disorder, unspecified F41.9 and Unspecified personality disorder F60.9 [facility] [address], [place] [address]- 6798 Oct, Unspecified episodic mood disorder F39 ; Anxiety disorder, unspecified F41.9 and Unspecified personality disorder F60.9 [facility] [address], [place] [address]- 6664 Oct, Unspecified episodic mood disorder F39 ; Anxiety disorder, unspecified F41.9 and Unspecified personality disorder F60.9 [facility] [address], [place] [address]- 6137 Sep, Unspecified episodic mood disorder F39 ; Anxiety disorder, unspecified F41.9 and Unspecified personality disorder F60.9 [facility] [address], [place] [address]- 4966 Sep, Encounter for immunization Z23 [facility] [id number] [place] [address] 17652- 3502 Sep, Edema of left lower extremity R60.0 [facility] [id number] [place] [address] 12865- 7928 Aug, Unspecified episodic mood disorder F39 ; Anxiety disorder, unspecified F41.9 and Unspecified personality disorder F60.9 [facility] [id number] [place] [address] 98771- 4823 Aug, [facility] [id number] [place] [address] 58061- 6521 Aug, Edema of left lower extremity R60.0 [facility] [id number] [place] [address] 71501- 9235 Aug, [facility] [id number] [place] [address] 50123- 6346 Aug, Unspecified episodic mood disorder F39 ; Anxiety disorder, unspecified F41.9 and Unspecified personality disorder F60.9 [facility] [address] [place] [address] 46345- 6637 Jul, Unspecified episodic mood disorder 296.90 ; Anxiety disorder , unspecified 300.00 and Unspecified personality disorder 301.9 [facility] [address], [place] [address]- 4403 Jul, Unspecified episodic mood disorder 296.90 ; Anxiety disorder , unspecified 300.00 and Unspecified personality disorder 301.9 [facility] [id number] [place] [address] 89363- 6343 Jul, [facility] [id number] [place] [address] 30689- 4183 Jun, Unspecified episodic mood disorder 296.90 ; Anxiety disorder , unspecified 300.00 and Unspecified personality disorder 301.9 [facility] [address], [place] [address]- 4652 May, Unspecified episodic mood disorder 296.90 ; Anxiety disorder , unspecified 300.00 and Unspecified personality disorder 301.9 [facility] [address], [place] [address]- 7108 May, Anxiety disorder, unspecified 300.00 [facility] [id number] [place] [address] 72115- 8638 May, Anxiety disorder, unspecified 300.00 and Edema 782.3 [facility] [id number] [place] [address] 37019- 4498 May, Unspecified episodic mood disorder 296.90 ; Anxiety disorder , unspecified 300.00 and Unspecified personality disorder 301.9 [facility] [address], [place] [address]- 7708 Apr, [facility] [id number] [place] [address] 97948- 6125 Apr, Unspecified episodic mood disorder 296.90 ; Anxiety disorder , unspecified 300.00 and Personality disorder, unspecified 301.9 [facility] [address] [place] [address] 99083- 0083 Apr, Unspecified episodic mood disorder 296.90 ; Anxiety disorder , unspecified 300.00 and Unspecified personality disorder 301.9 [facility] [address], [place] [address]- 9545 March, [facility] [id number] [place] [address] 44106- 5688 March, Unspecified episodic mood disorder 296.90 ; Anxiety disorder , unspecified 300.00 and Unspecified personality disorder 301.9 [facility] [id number] [place] [address] 98276- 0135 March, Unspecified episodic mood disorder 296.90 ; Anxiety disorder 300.00 and Unspecified personality disorder 301.9 [facility] [id number] [place] [address] 63770- 1346 March, [facility] [place] [facility] [address] [id number] [place] [address]- 8777 March, [facility] [place] [facility] [address] [id number] [place] [address]- 8488 Feb, [facility] [place] [facility] [address] [id number] [place] [address]- 4561 Feb, [facility] [place] [facility] [address] [id number] [place] [address]- 9258 Feb, [facility] [place] [facility] [address] [id number] [place] [address]- 8391 Jan, [facility] [place] [facility] [address] [id number] [place] [address]- 4898 Jan, [facility] [place] [facility] [address] [id number] [place] [address]- 1010 Jan, [facility] [place] [facility] [address] [id number] [place] [address]- 8439 Jan, [facility] [place] [facility] [address] [id number] [place] [address]- 6985 Jan, [facility] [place] [facility] [address] [id number] [place] [address]- 3628 Jan, [facility] [place] [facility] [id number] [id number] Jan, [facility] [place] [facility] [address] [id number] [place] [address] Jan, [facility] [place] [facility] [address] [id number] [place] [address] Jan, [facility] [place] [facility] [address] [id number] [place] [address] Jan, [facility] [place] [facility] [address] [id number] [place] [address] Jan, [facility] [place] [facility] [address] [id number] [place] [address] 05 Jan, 2014 [facility] [place] [facility] [address] [id number] [place] [address] Jan, 2014 [facility] [place] [facility] [address] [id number] [place] [address] Jan, 2014 [facility] [place] [facility] [address] [id number] [place] [address] Jan, 2014 [facility] [place] [facility] [address] [id number] [place] [address] Jan, 2014 [facility] [place] [facility] [address] [id number] [place] [address] Dec, 2014 [facility] [place] [facility] [address] [facility] [id number] [place] [address] Dec, 2014 [facility] [place] [facility] [address] [id number] [place] [address] Dec, 2014 [facility] [place] [facility] [address] [id number] [place] [address] Dec, [facility] [place] [facility] [address] [facility] [id number] [place] [address] Nov[facility] [place] [facility] [address] [facility] [id number] [place] [address] Nov, [facility] [place] [facility] [address] [facility] [id number] [place] [address] Nov, [facility] [place] [facility] [address] [id number], [place] [address] 2011 Nov, [facility] [place] [facility] [address] [id number] [place] [address] Oct, [facility] [place] [facility] [address] [facility] [id number] [place] [address] 8464 Oct, [facility] [place] [facility] [address] [id number] [place] [address] 9857 Oct, [facility] [place] [facility] [address] [id number] [place] [address]- 9985 Oct, [facility] [place] [facility] [address] [id number] [place] [address] 3618 Oct, [facility] [place] [facility] [address] [id number] [place] [address] Oct, [facility] [place] [facility] [address] [id number] [place] [address] 6001 Oct, [facility] [place] [facility] [address] [id number] [place] [address]- 7607 Oct, [facility] [place] [facility] [address] [id number] [place] [address]- 8194 Oct, [facility] [place] [facility] [address] [id number] [place] [address]- 6398 Oct, [facility] [place] [facility] [address] [id number] [place] [address]- 1316 Oct, [facility] [place] [facility] [address] [id number] [place] [address]- 7682 Oct, [facility] [place] [facility] [address] [id number] [place] [address]- 6274 Oct, [facility] [place] [facility] [address] [id number] [place] [address]- 4848 Oct, [facility] [place] [facility] [address] [id number] [place] [address]- 6534 Oct, [facility] [place] [facility] [address] [id number] [place] [address]- 2645 Oct, [facility] [place] [facility] [address] [id number] [place] [address]- 7561 Sep, [facility] [place] [facility] [address] [id number] [place] [address]- 4135 Sep, [facility] [place] [facility] [address] [id number] [place] [address]- 7526 Sep, [facility] [place] [facility] [address] [id number] [place] [address]- 9853 Sep, [facility] [place] [facility] [address] [id number] [place] [address]- 9855 Sep, [facility] [place] [facility] [address] [id number] [place] [address]- 8845 Sep, [facility] [place] [facility] [address] [id number] [place] [address]- 4994 Sep, [facility] [place] [facility] [address] [id number] [place] [address]- 4695 Sep, [facility] [place] [facility] [address] [id number] [place] [address]- 2500 Sep, [facility] [place] [facility] [address] [id number] [place] [address]- 1574 Sep, [facility] [place] [facility] [address] [id number] [place] [address]- 9895 Aug, [facility] [place] [facility] [address] [id number] [place] [address]- 5361 Aug, [facility] [place] [facility] [address] [id number] [place] [address]- 3842 Aug, [facility] [place] [facility] [address] [id number] [place] [address]- 4897 Aug, [facility] [place] [facility] [address] [id number] [place] [address]- 9762 Aug, [facility] [place] [facility] [address] [id number] [place] [address]- 0389 Aug, [facility] [place] [facility] [address] [id number] [place] [address]- 5217 Aug, [facility] [place] [facility] [address] [id number] [place] [address]- 1910 Aug, [facility] [place] [facility] [address] [id number] [place] [address]- 3759 Jul, 2013 [facility] [place] [facility] [address] [id number] [place] [address]- 0947 Jul, [facility] [place] [facility] [address] [id number] [place] [address] Jul, 2013 [facility] [place] [facility] [address] [id number] [place] [address]- 1236 Jul, 2013 [facility] [place] [facility] [address] [id number] [place] [address]- 8493 Jul, 2013 [facility] [place] [facility] [address] [id number] [place] [address]- 2144 Jul, [facility] [place] [facility] [address] [id number] [place] [address]- 9795 Jun, [facility] [place] [facility] [address] [id number] [place] [address]- 8198 Jun, [facility] [place] [facility] [address] [id number] [place] [address]- 3846 May, [facility] [place] [facility] [address] [id number] [place] [address]- 4913 May, [facility] [place] [facility] [address] [id number] [place] [address]- 3637 May, [facility] [place] [facility] [address] [id number] [place] [address]- 7048 May, [facility] [place] [facility] [address] [id number] [place] [address]- 5138 May, [facility] [place] [facility] [address] [id number] [place] [address]- 4454 May, [facility] [place] [facility] [address] [id number] [place] [address]- 8514 May, [facility] [place] [facility] [address] [id number] [place] [address]- 9996 May, [facility] [place] [facility] [address] [id number] [place] [address]- 2194 Apr, [facility] [place] [facility] [address] [id number] [place] [address]- 8875 Apr, [facility] [place] [facility] [address] [id number] [place] [address]- 4878 March, [facility] [place] [facility] [address] [id number] [place] [address]- 9935 March, [facility] [place] [facility] [address] [id number] [place] [address]- 7349 Feb, [facility] [place] [facility] [address] [id number] [place] [address]- 5981 Feb, [facility] [place] [facility] [address] [id number] [place] [address]- 9210 Feb, [facility] [place] [facility] [address] [id number] [place] [address]- 0566 Feb, [facility] [place] [facility] [address] [id number] [place] [address]- 5921 Feb, [facility] [place] [facility] [address] [id number] [place] [address]- 0286 Feb, [facility] [place] [facility] [address] [id number] [place] [address]- 3798 Feb, [facility] [place] [facility] [address] [id number] [place] [address]- 8231 Feb, [facility] [place] [facility] [address] [id number] [place] [address]- 9410 Feb, [facility] [place] [facility] [address] [id number] [place] [address]- 8777 Feb, [facility] [place] [facility] [address] [id number] [place] [address]- 2439 Jan, [facility] [place] [facility] [address] [id number] [place] [address]- 7193 Jan, [facility] [place] [facility] [address] [id number] [place] [address]- 9587 Jan, [facility] [place] [facility] [address] [id number] [place] [address]- 8812 Jan, [facility] [place] [facility] [address] [id number] [place] [address]- 6378 Jan, [facility] [place] [facility] [address] [id number] [place] [address]- 6316 Dec, [facility] [place] [facility] [address] [id number] [place] [address]- 8832 Dec, [facility] [place] [facility] [address] [id number] [place] [address]- 1325 Dec, [facility] [place] [facility] [address] [id number] [place] [address]- 6298 Dec, [facility] [place] [facility] [address] [id number] [place] [address]- 4771 Dec, [facility] [place] [facility] [address] [id number] [place] [address]- 2432 Dec, [facility] [place] [facility] [address] [id number] [place] [address]- 7775 Nov, [facility] [place] [facility] [address] [id number] [place] [address]- 4929 Nov, [facility] [place] [facility] [address] [id number] [place] [address]- 4668 Nov, [facility] [place] [facility] [address] [id number] [place] [address]- 7070 Nov, [facility] [place] [facility] [address] [id number] [place] [address]- 5765 Nov, [facility] [place] [facility] [address] [id number], [place] [address]- 2876 Nov, [facility] [address] [id number] [place] [address]- 3351 Nov, [facility] [place] [facility] [address] [id number] [place] [address]- 9417 Nov, [facility] [place] [facility] [address] [facility] [id number] [place] Oct, [facility] [place] [facility] [address] [id number] [place] [address]- 1152 Oct, [facility] [place] [facility] [address] [id number] [place]17 Oct, [facility] [place] [facility] [address] [id number] [place] [address]- 4269 Oct, [facility] [place] [facility] [address] [id number] [place] [address]- 4167 Oct, [facility] [place] [facility] [address] [id number] [place] [address]- 2590 Oct, [facility] [place] [facility] [address] [id number] [place] [address]- 3198 Oct, [facility] [place] [facility] [address] [id number] [place] [address]- 1639 Oct, [facility] [place] [facility] [address] [id number], [place] [address]- 4877 Sep, [facility] [place] [facility] [address] [id number], [place] [address]- 6858 Sep, [facility] [place] [facility] [address] [id number] [place] [address]- 8325 Sep, [facility] [place] [facility] [address] [id number] [place] [address]- 7481 Sep, [facility] [place] [facility] [address] [facility] [id number], [place] [address]- 6328 Sep, [facility] [place] [facility] [address] [id number] [place] [address] 2540 Sep, [facility] [address] [id number] [place] [address]- 2995 Sep, [facility] [place] [facility] [address] [id number] [place] [address]- 1116 Sep, [facility] [place] [facility] [address] [id number] [place] [address]- 3265 Aug, [facility] [place] [facility] [address] [id number] [place] [address]- 0072 Aug, [facility] [place] [facility] [address] [id number] [place] [address]- 7271 Aug, [facility] [place] [facility] [address] [id number] [place] [address]- 8842 Jul, [facility] [place] [facility] [address] [id number] [place] [address]- 5978 Jun, [facility] [place] [facility] [address] [id number] [place] [address]- 3025 Jun, [facility] [place] [facility] [address] [id number] [place] [address]- 1532 Jun, [facility] [place] [facility] [address] [id number] [place] [address]- 6931 Jun, [facility] [place] [facility] [address] [id number] [place] [address]- 6870 Jun, [facility] [place] [facility] [address] [id number] [place] [address]- 2544 May, [facility] [place] [facility] [address] [id number] [place] [address]- 8075 May, [facility] [place] [facility] [address] [id number] [place] [address]- 2546 Apr, [facility] [place] [facility] [address] [id number] [place] [address]- 9497 Apr, [facility] [address] [id number] [place] [address]- 9386 March, [facility] [address] [id number] [place] [address]- 3643 March, [facility] [address] [id number] [place] [address]- 7124 March, [facility] [place] [facility] [address] [id number] [place] [address]- 4854 March, [facility] [address] [id number] [place] [address]- 7050 March, [facility] [address] [id number] [place] [address]- 8631 Feb, [facility] [address] [id number] [place] [address]- 9586 Feb, [facility] [address] [id number] [place] [address]- 3635 Feb, [facility] [address] [id number] [place] [address]- 9544 Jan, [facility] [address] [id number] [place] [address]- 8057 Dec, [facility] [place] [facility] [address] [id number] [place] [address]- 8072 Dec, [facility] [place] [facility] [address] [id number] [place] [address]- 3684 Dec, [facility] [place] [facility] [address] [id number] [place] [address]- 5748 Dec, [facility] [place] [facility] [address] [id number] [place] [address]- 6556 Nov, [facility] [place] [facility] [address] [id number] [place] [address]- 5783 Nov, [facility] [place] [facility] [address] [id number] [place] [address]- 4370 Nov, [facility] [address] [id number] [place] [address]- 5149 Nov, [facility] [place] [facility] [address] [id number] [place] [address]- 3626 Oct, [facility] [place] [facility] [address] [id number] [place] [address]- 1374 Oct, [facility] [place] [facility] [address] [id number] [place] [address]- 9857 Oct, [facility] [place] [facility] [address] [id number] [place] [address]- 4497 Oct, [facility] [place] [facility] [address] [id number] [place] [address]- 5342 14 Sep, 2012 [facility] [place] [facility] [address] [id number] [place] [address]- 3175 14 Sep, 2012 [facility] [place] [facility] [address] [id number] [place] [address]- 7369 Sep, [facility] [place] [facility] [address] [id number] [place] [address]- 6883 13 Sep, 2012 [facility] [place] [facility] [address] [facility] [id number] [place] [address]- 4608 Sep, [facility] [place] [facility] [address] [id number] [place] [address]- 1703 08 Sep, 2012 [facility] [place] [facility] [address] [id number], [place] [address]- 6754 Aug, [facility] [place] [facility] [address] [id number] [place] [address]- 0655 Aug, [facility] [place] [facility] [address] [id number] [place] [address]- 6936 Aug, [facility] [place] [facility] [address] [id number], [place] [address]- 4991 Jul, [facility] [place] [facility] [address] [id number] [place] [address] 2548 Jul, [facility] [place] [facility] [address] [id number] [place] [address]- 2184 Jun, [facility] [place] [facility] [address] [id number] [place] [address]- 5066 May, [facility] [place] [facility] [address] [id number] [place] [address]- 9154 May, [facility] [place] [facility] [address] [id number] [place] [address]- 4554 Apr, [facility] [place] [facility] [address] [id number] [place] [address]- 1188 Apr, [facility] [address] [id number] [place] [address]- 6644 March, [facility] [place] [facility] [address] [id number] [place] [address]- 4375 March, [facility] [place] [facility] [address] [id number] [place] [address]- 3727 Feb, [facility] [place] [facility] [address] [id number] [place] [address]- 3925 Feb, [facility] [place] [facility] [address] [id number] [place] [address]- 5552 Feb, [facility] [place] [facility] [address] [id number] [place] [address]- 0936 Feb, [facility] [place] [facility] [address] [id number] [place] [address]- 1247 Jan, [facility] [place] [facility] [address] [id number] [place] [address]- 7697 Jan, [facility] [place] [facility] [address] [id number] [place] [address]- 4842 Dec, [facility] [place] [facility] [address] [id number] [place] [address]- 5800 28 Dec, 2011 [facility] [address] [id number] [place] [address] 2546 Dec, [facility] [address] [id number] [place] [address] 2546 23 Dec, 2011 [facility] [address] [id number] [place] [address]- 3106 20 Dec, 2011 [facility] [address] [id number] [place] [address] 2546 15 Dec, 2011 [facility] [address] [id number] [place] [address]- 4586 10 Dec, 2011 [facility] [address] [id number] [place] [address]- 2546 09 Dec, 2011 [facility] [address] [id number] [place] [address]- 6513 08 Dec, 2011 [facility] [address] [id number] [place] [address]- 9903 07 Dec, 2011 [facility] [address] [id number] [place] [address]- 9191 02 Dec, 2011 [facility] [address] [id number] [place] [address]- 0887 02 Dec, 2011 [facility] [address] [id number] [place] [address] 2546 Dec, [facility] [address] [id number] [place] [address] 2544 Nov, [facility] [place] [facility] [address] [id number] [place] [address]- 2976 Nov, [facility] [place] [facility] [address] [id number] [place] [address]- 9526 Nov, [facility] [address] [facility] [id number] [place] [address]- 0885 Nov, [facility] [address] [id number] [place] [address]- 6213 Nov, [facility] [place] [facility] [address] [id number] [place] [address]- 2384 Nov, [facility] [place] [facility] [address] [id number] [place] [address]- 8676 Oct, [facility] [place] [facility] [address] [id number] [place] [address]- 2114 Oct, [facility] [place] [facility] [address] [id number] [place] [address] Sep, [facility] [place] [facility] [address] [id number] [place] [address] Sep, [facility] [place] [facility] [address] [id number] [place] [address] Sep, [facility] [place] [facility] [address] [id number] [place] [address] Sep, [facility] [place] [facility] [address] [id number] [place] [address] Sep, [facility] [place] [facility] [address] [id number], [place] [address] March, [facility] [place] [facility] [address] [id number] [place] [address] Oct, [facility] [place] [facility] [address] [id number], [place] [address] Oct, [facility] [place] [facility] [address] [id number] [place] [address] Oct, [facility] [place] [facility] [address] [id number] [place] [address] 24 Sep, 2010 [facility] [place] [facility] [address] [id number], [place] [address] 17 Sep, 2010 [facility] [place] [facility] [address] [id number], [place] [address] Sep, [facility] [address] [facility] [id number], [place] [address] Sep, [facility] [address] [id number], [place] [address] Aug, [facility] [address] [facility] [id number], [place] [address] Oct, [facility] [address] [id number], [place] [address] Oct, [facility] [address] [facility] [id number], [place] [address] May, IMMUNIZATIONS No Known Immunizations SOCIAL HISTORY Never Assessed REASON FOR VISIT f/u PLAN OF CARE Activity Details Follow Up Next available Reason: F/U VITAL SIGNS MEDICATIONS Unknown Medications RESULTS No Results PROCEDURES Procedure Date Ordered Result Body Site Psychotherapy, patient &/family, 45 minutes, established patient June 04, 2018 INSTRUCTIONS MEDICATIONS ADMINISTERED No Known Medications MEDICAL (GENERAL) HISTORY Type Description Date Medical History hypertension Medical History panic attacks Surgical History cholecystectomy 2008 Hospitalization History surgery
--- OUTSIDE RECORDS SUMMARY | 2018-12-11 10:18 | XMS REPORT ---
Author Author LEIDA ANDINO Organization [facility] Address [address] [place] [address] Care Team Providers Care Alpaca Farmer Name Role Phone LEIDA ANDINO Unavailable PROBLEMS Type Condition ICD9-CM Code PBC95-TO Code Onset Dates Condition Status SNOMED Code Problem Stress incontinence of urine N39.3 Active 22754246 Problem Anxiety F41.9 Active 11992081 Problem Anxiety disorder, unspecified F41.9 Active 915748450 Problem Unspecified episodic mood disorder F39 Active 188111086 Problem Unspecified personality disorder F60.9 Active 68086122 ALLERGIES No Information ENCOUNTERS Encounter Location Date Diagnosis [place] [address] 67812- 4851 Aug, [facility] [address] [place] [id number] [place] [address] 90368- 0783 Jul, [place] [address] [place] [id number] [place] [address] 37597- 3283 Jun, Unspecified episodic mood disorder F39 ; Anxiety disorder, unspecified F41.9 and Unspecified personality disorder F60.9 [place] [address] [place] [id number] [place] [address] 51554- 6383 Jun, Anxiety disorder, unspecified F41.9 [place] [id number] [place] [id number] [place] [address] 36113- 8550 May, Unspecified episodic mood disorder F39 ; Anxiety disorder, unspecified F41.9 and Unspecified personality disorder F60.9 [facility] [address] [place] [id number] [place] [address] 32053- 3574 May, Anxiety disorder, unspecified F41.9 [place] [address] [place] [id number] [place] [address] 52161- 5253 Apr, Anxiety disorder, unspecified F41.9 [facility] [id number] [place] [address] 64247- 0851 Apr, Unspecified episodic mood disorder F39 ; Anxiety disorder, unspecified F41.9 and Unspecified personality disorder F60.9 [facility] [address] [place] [id number] [place] [address] 00144- 0885 March, Anxiety disorder, unspecified F41.9 [facility] [address] [place] [id number] [place] [address] 81901- 6763 March, Unspecified episodic mood disorder F39 ; Anxiety disorder, unspecified F41.9 and Unspecified personality disorder F60.9 [place] [address] [place] [id number] [place] [address] 32459- 4457 March, Anxiety disorder, unspecified F41.9 [place] [address] [place] [id number] [place] [address] 50594- 7765 Feb, Unspecified episodic mood disorder F39 ; Anxiety disorder, unspecified F41.9 and Unspecified personality disorder F60.9 [place] [address] [place] [id number] [place] [address] 42834- 4037 Feb, Unspecified episodic mood disorder F39 ; Anxiety disorder, unspecified F41.9 and Unspecified personality disorder F60.9 [place] [id number] [place] [address] 27847- 1919 Feb, Anxiety disorder, unspecified F41.9 [facility] [address] [place] [id number] [place] [address] 75398- 3601 Jan, Unspecified episodic mood disorder F39 ; Anxiety disorder, unspecified F41.9 and Unspecified personality disorder F60.9 [place] [id number] [place] [address] 30843- 7835 Jan, Anxiety F41.9 [facility] [id number] [place] [address] 39565- 8899 Jan, Anxiety disorder, unspecified F41.9 [facility] [address] [address]- 3702 Dec, Unspecified episodic mood disorder F39 ; Anxiety disorder, unspecified F41.9 and Unspecified personality disorder F60.9 [facility] [id number] [place] [address] 04862- 1514 Dec, Anxiety F41.9 [facility] [address] [place] [id number] [place] [address] 07723- 9204 Dec, Anxiety disorder, unspecified F41.9 [facility] [address] [place] [id number] [place] [address] 66618- 3510 Dec, Unspecified episodic mood disorder F39 ; Anxiety disorder, unspecified F41.9 and Unspecified personality disorder F60.9 [place] [address] [place] [id number] [place] [address] 46022- 5446 Nov, [facility] [address] [place] [id number] [place] [address] 55413- 2043 Nov, [facility] [address] [place] [id number] [place] [address] 01996- 5004 Nov, Unspecified episodic mood disorder F39 ; Anxiety disorder, unspecified F41.9 and Unspecified personality disorder F60.9 [place] [id number] [place] [address] 18255- 4718 Nov, Anxiety disorder, unspecified F41.9 [facility] [address] [place] [id number] [place] [address] 93758- 0753 Oct, Unspecified episodic mood disorder F39 ; Anxiety disorder, unspecified F41.9 and Unspecified personality disorder F60.9 [facility] [address] [place] [id number] [place] [address] 12714- 7523 Oct, Vaginal yeast infection B37.3 [facility] [address] [place] [address] 52088- 9738 Oct, [place] [place] [address] [place] [id number] [place] [address] 66539- 1529 Oct, Anxiety disorder, unspecified F41.9 [place] [address] 58603- 4949 Oct, Routine gynecological examination Z01.419 ; Screening for breast cancer Z12.31 and Vaginal yeast infection B37.3 [place] [address] 99739- 0783 Sep, Unspecified episodic mood disorder F39 ; Anxiety disorder, unspecified F41.9 and Unspecified personality disorder F60.9 [place] [address] 44411- 4464 Sep, [place] [address] 58017- 4916 Sep, Anxiety disorder, unspecified F41.9 [place] [address] 80499- 4523 Sep, Bronchitis J40 and Stress incontinence of urine N39.3 [place] [address] 12515- 7227 Sep, Stress incontinence of urine N39.3 ; Bronchitis J40 and Anxiety F41.9 [place] [address] [place] [id number] [place] [address] 61701- 5260 Sep, [place] [address] [place] [id number] [place] [address] 36607- 3272 Sep, Unspecified episodic mood disorder F39 ; Anxiety disorder, unspecified F41.9 and Unspecified personality disorder F60.9 [place] [address] 30190- 9826 Aug, Anxiety F41.9 ; Stress incontinence of urine N39.3 and Encounter for immunization Z23 [place] [address] [place] [id number] [place] [address] 10378- 7603 Aug, Anxiety disorder, unspecified F41.9 [facility] [address] [address]- 3245 Jul, Unspecified episodic mood disorder F39 ; Anxiety disorder, unspecified F41.9 and Unspecified personality disorder F60.9 [facility] [address] [address]- 5395 Jul, [facility] [address] [place] [address] 20391- 0693 Jul, Unspecified episodic mood disorder F39 ; Anxiety disorder, unspecified F41.9 and Unspecified personality disorder F60.9 [facility] [address] [place] [id number] [place] [address] 73144- 0308 Jul, Anxiety disorder, unspecified F41.9 [facility] [address] [place] [address] 86906- 9544 Jun, Unspecified episodic mood disorder F39 ; Anxiety disorder, unspecified F41.9 and Unspecified personality disorder F60.9 [facility] [address] [place] [address] 60035- 4785 Jun, Anxiety disorder, unspecified F41.9 [facility] [address] [place] [id number] [place] [address] 88667- 6662 Jun, Unspecified episodic mood disorder F39 ; Anxiety disorder, unspecified F41.9 and Unspecified personality disorder F60.9 [facility] [address] [address]- 5213 Jun, [facility] [id number] [place] [address] 37076- 3870 May, Anxiety disorder, unspecified F41.9 [facility] [address] [address]- 1042 May, Unspecified episodic mood disorder F39 ; Anxiety disorder, unspecified F41.9 and Unspecified personality disorder F60.9 [facility] [address] [place] [address] 60001- 9055 Apr, Anxiety disorder, unspecified F41.9 [facility] [address] [place] [address] 44032- 0357 March, Unspecified episodic mood disorder F39 ; Anxiety disorder, unspecified F41.9 and Unspecified personality disorder F60.9 [facility] [address] [place] [id number] [place] [address] 25594- 8987 March, Bronchitis J40 [facility] [address] [place] [id number] [place] [address] 76909- 4708 March, Unspecified episodic mood disorder F39 ; Anxiety disorder, unspecified F41.9 and Unspecified personality disorder F60.9 [facility] [address] [place] [id number] [place] [address] 70784- 2752 Feb, [facility] [address] [place] [id number] [place] [address] 74840- 9999 Feb, Unspecified episodic mood disorder F39 ; Anxiety disorder, unspecified F41.9 and Unspecified personality disorder F60.9 [facility] [address] [place] [id number] [place] [address] 18318- 5840 Feb, Bronchitis J40 [facility] [address] [place] [id number] [place] [address] 77134- 5492 Feb, Unspecified episodic mood disorder F39 ; Anxiety disorder, unspecified F41.9 and Unspecified personality disorder F60.9 [facility] [address] [place] [id number] [place] [address] 28677- 3426 Jan, Unspecified episodic mood disorder F39 ; Anxiety disorder, unspecified F41.9 and Unspecified personality disorder F60.9 [facility] [address] [place] [id number] [place] [address] 10017- 6923 Jan, Bronchitis J40 [facility] [id number] [place] [address] 32919- 7290 Jan, Unspecified episodic mood disorder F39 ; Anxiety disorder, unspecified F41.9 and Unspecified personality disorder F60.9 [facility] [address] [address]- 1399 Dec, Anxiety F41.9 [facility] [id number] [place] [address] 60506- 6595 Dec, Unspecified episodic mood disorder F39 ; Anxiety disorder, unspecified F41.9 and Unspecified personality disorder F60.9 [facility] [id number] [place] [address] Dec, [facility] [address] [place] [id number] [place] [address] 96313- 4464 Dec, Unspecified episodic mood disorder F39 ; Anxiety disorder, unspecified F41.9 and Unspecified personality disorder F60.9 [place] [id number] [place] [address] 56652- 5436 Nov, [facility] [address] [place] [id number] [place] [address] 95379- 9402 Oct, Unspecified episodic mood disorder F39 ; Anxiety disorder, unspecified F41.9 and Unspecified personality disorder F60.9 [facility] [address] [place] [address] 94237- 8845 Oct, [facility] [id number] [place] [address] 17639 -5326 Oct, Acute upper respiratory infection, unspecified J06.9 ; Other viral agents as the cause of diseases classified elsewhere B97.89 and Cough R05 [facility] [address] [place] [address] 65588- 8401 Aug, Unspecified episodic mood disorder F39 ; Anxiety disorder, unspecified F41.9 and Unspecified personality disorder F60.9 [facility] [address] [place] [address] 35439- 5903 Aug, [facility] [address] [place] [address] 06923- 1023 Aug, [facility] [address] [address]- 1461 Aug, [facility] [address] [address]- 2952 Aug, Visit for TB skin test Z11.1 [facility] [address] [address]- 1669 Jul, [facility] [address] [place] [id number] [place] [address] 49803- 3317 Jul, [facility] [address] [address]- 1687 Jul, [facility] [address] [address]- 1817 Jul, [facility] [address] [address]- 1751 Jul, [facility] [address] [address]- 7189 Jul, Unspecified episodic mood disorder F39 ; Anxiety disorder, unspecified F41.9 and Unspecified personality disorder F60.9 [facility] [address] [address]- 2407 Jun, [facility] [address] [address]- 7802 Jun, Unspecified episodic mood disorder F39 ; Anxiety disorder, unspecified F41.9 and Unspecified personality disorder F60.9 [facility] [address] [address]- 6451 Jun, [facility] [address] [address]- 8663 May, Unspecified episodic mood disorder F39 ; Anxiety disorder, unspecified F41.9 and Unspecified personality disorder F60.9 [facility] [address] [address]- 6037 May, [facility] [address] [address]- 1771 May, [facility] [id number] [place] [address] 26127- 7259 May, Edema, unspecified R60.9 [facility] [id number] [place] [address] 55174- 0893 Apr, [facility] [address] [place] [id number] [place] [address] 99354- 9301 Apr, Unspecified episodic mood disorder F39 ; Anxiety disorder, unspecified F41.9 and Unspecified personality disorder F60.9 [facility] [address] [place] [id number] [place] [address] 45737- 1540 Apr, Anxiety F41.9 [facility] [address] [place] [id number] [place] [address] 60647- 9413 March, Unspecified episodic mood disorder F39 ; Anxiety disorder, unspecified F41.9 and Unspecified personality disorder F60.9 [facility] [address] [place] [address] 87808- 0658 March, Unspecified episodic mood disorder F39 ; Anxiety disorder, unspecified F41.9 and Unspecified personality disorder F60.9 [facility] [address] [address]- 8460 Feb, Anxiety F41.9 [facility] [address] [place] [address] 01555- 7950 Feb, Unspecified episodic mood disorder F39 ; Anxiety disorder, unspecified F41.9 and Unspecified personality disorder F60.9 [facility] [address] [place] [address] 35298- 4505 Jan, Unspecified episodic mood disorder F39 ; Anxiety disorder, unspecified F41.9 and Unspecified personality disorder F60.9 [facility] [address] [address]- 5171 Jan, Unspecified episodic mood disorder F39 ; Anxiety disorder, unspecified F41.9 and Unspecified personality disorder F60.9 [facility] [address] [place] [address] 91954- 1814 Jan, Edema, unspecified R60.9 [facility] [address] [place] [address] 77858- 7751 Dec, [facility] [address] [place] [id number] [place] [address] 80674- 9900 Dec, [facility] [address] [place] [id number] [place] [address] 55445- 8609 Dec, [facility] [address] [place] [id number] [place] [address] 88797- 3059 Dec, Unspecified episodic mood disorder F39 ; Anxiety disorder, unspecified F41.9 and Unspecified personality disorder F60.9 [facility] [address] [place] [id number] [place] [address] 66265- 0375 Nov, [facility] [address] [place] [address] 64308- 1898 Nov, Unspecified episodic mood disorder F39 ; Anxiety disorder, unspecified F41.9 and Unspecified personality disorder F60.9 [facility] [address] [place] [address] 45351- 1446 Oct, Unspecified episodic mood disorder F39 ; Anxiety disorder, unspecified F41.9 and Unspecified personality disorder F60.9 [facility] [address] [address]- 4199 Oct, Unspecified episodic mood disorder F39 ; Anxiety disorder, unspecified F41.9 and Unspecified personality disorder F60.9 [facility] [address] [address]- 7459 Sep, Unspecified episodic mood disorder F39 ; Anxiety disorder, unspecified F41.9 and Unspecified personality disorder F60.9 [facility] [id number] [place] [address] 19296- 8008 Sep, Encounter for immunization Z23 [facility] [address] [place] [id number] [place] [address] 55517- 1746 Sep, Edema of left lower extremity R60.0 [facility] [address] [place] [id number] [place] [address] 97503- 8398 Aug, Unspecified episodic mood disorder F39 ; Anxiety disorder, unspecified F41.9 and Unspecified personality disorder F60.9 [facility] [address] [place] [id number] [place] [address] 64766- 2381 Aug, [facility] [address] [place] [id number] [place] [address] 39481- 4591 Aug, Edema of left lower extremity R60.0 [facility] [address] [place] [id number] [place] [address] 69717- 5931 Aug, [facility] [address] [place] [id number] [place] [address] 86887- 6697 Aug, Unspecified episodic mood disorder F39 ; Anxiety disorder, unspecified F41.9 and Unspecified personality disorder F60.9 [facility] [address] [place] [id number] [place] [address] 61599- 9018 Jul, Unspecified episodic mood disorder 296.90 ; Anxiety disorder , unspecified 300.00 and Unspecified personality disorder 301.9 [facility] [address] [place] [address] 59920- 0477 Jul, Unspecified episodic mood disorder 296.90 ; Anxiety disorder , unspecified 300.00 and Unspecified personality disorder 301.9 [facility] [id number] [place] [address] 02150- 6162 Jul, [facility] [address] [place] [id number] [place] [address] 08646- 3131 Jun, Unspecified episodic mood disorder 296.90 ; Anxiety disorder , unspecified 300.00 and Unspecified personality disorder 301.9 [facility] [address] [id number] [address]- 2655 May, Unspecified episodic mood disorder 296.90 ; Anxiety disorder , unspecified 300.00 and Unspecified personality disorder 301.9 [facility] [address] [place] [address] 17314- 7076 May, Anxiety disorder, unspecified 300.00 [facility] [id number] [place] [address] 58738- 3492 May, Anxiety disorder, unspecified 300.00 and Edema 782.3 [facility] [address] [id number] [place] [address] 27574- 3973 May, Unspecified episodic mood disorder 296.90 ; Anxiety disorder , unspecified 300.00 and Unspecified personality disorder 301.9 [facility] [address] [place] [address] 75051- 4940 Apr, [facility] [id number] [place] [address] 11601- 8220 Apr, Unspecified episodic mood disorder 296.90 ; Anxiety disorder , unspecified 300.00 and Personality disorder, unspecified 301.9 [facility] [address] [id number] [place] [address] 08001- 4027 Apr, Unspecified episodic mood disorder 296.90 ; Anxiety disorder , unspecified 300.00 and Unspecified personality disorder 301.9 [facility] [address] [address]- 9314 March, [facility] [address] [id number] [place] [address] 04837- 1869 March, Unspecified episodic mood disorder 296.90 ; Anxiety disorder , unspecified 300.00 and Unspecified personality disorder 301.9 [facility] [address] [place] [address] 70949- 7109 March, Unspecified episodic mood disorder 296.90 ; Anxiety disorder 300.00 and Unspecified personality disorder 301.9 [facility] [id number] [place] [address] 05653- 7666 March, [facility] [place] [facility] [address] [id number] [place] [address]- 7858 March, [facility] [place] [facility] [address] [id number] [place] [address]- 4546 Feb, [facility] [place] [facility] [address] [facility] [id number] [place] [address]- 9234 Feb, [facility] [place] [facility] [address] [id number] [place] [address]- 5723 Feb, [facility] [place] [facility] [address] [id number] [place] [address]- 0460 Jan, [facility] [place] [facility] [address] [id number] [place] [address] Jan, [facility] [place] [facility] [address] [id number] [place] [address] Jan, [facility] [place] [facility] [address] [id number] [place] [address] Jan, [facility] [place] [facility] [address] [id number] [place] [address] Jan, [facility] [place] [facility] [address] [facility] [id number] [place] [address] Jan, [facility] [place] [facility] [address] [facility] [id number] [place] [id number] Jan, [facility] [place] [facility] [address] [id number] [place] [address] Jan, [facility] [place] [facility] [address] [id number] [place] [address] Jan, [facility] [place] [facility] [address] [id number] [place] [address] Jan, [facility] [place] [facility] [address] [facility] [id number] [place] [address] Jan, [facility] [place] [facility] [address] [id number] [place] [address] Jan, 2014 [facility] [place] [facility] [address] [id number] [place] [address] Jan, 2014 [facility] [place] [facility] [address] [id number] [place] [address] 4032 Jan, 2014 [facility] [place] [facility] [address] [facility] [id number] [place] [address] 5984 Jan, 2014 [facility] [place] [facility] [address] [id number] [place] [address] 2273 Jan, 2014 [facility] [place] [facility] [address] [id number] [place] [address] 8208 Dec, 2014 [facility] [place] [facility] [address] [facility] [id number] [place] [address]- 4928 Dec, 2014 [facility] [place] [facility] [address] [facility] [id number] [place] [address]- 2759 Dec, 2014 [facility] [place] [facility] [address] [facility] [id number] [place] [address] 8425 Dec, [facility] [place] [facility] [address] [id number] [place] [address] 4[address] Nov, [facility] [place] [facility] [address] [facility] [id number] [place] [address]- 6033 Nov, [facility] [place] [facility] [address] [facility] [id number] [place] [address]- 2997 Nov, [facility] [place] [facility] [address] [facility] [id number] [place] [address]- 2066 Nov, [facility] [place] [facility] [address] [facility] [id number] [place] [address]- 9364 Oct, [facility] [place] [facility] [address] [facility] [id number] [place] [address]- 7796 Oct, [facility] [place] [facility] [address] [facility] [id number] [place] [address]- 0022 Oct, [facility] [place] [facility] [address] [id number] [place] [address]- 7036 Oct, [facility] [place] [facility] [address] [id number] [place] [address]- 3668 Oct, [facility] [place] [facility] [address] [id number] [place] [address]- 6155 Oct, [facility] [place] [facility] [address] [id number] [place] [address]- 3386 Oct, [facility] [place] [facility] [address] [id number] [place] [address]- 4223 Oct, [facility] [place] [facility] [address] [id number] [place] [address]- 7630 Oct, [facility] [place] [facility] [address] [id number] [place] [address]- 7981 Oct, [facility] [place] [facility] [address] [id number] [place] [address]- 9833 Oct, [facility] [place] [facility] [address] [id number] [place] [address]- 8330 Oct, [facility] [place] [facility] [address] [id number] [place] [address]- 6114 Oct, [facility] [place] [facility] [address] [id number] [place] [address]- 9144 Oct, [facility] [place] [facility] [address] [id number] [place] [address]- 7911 Oct, [facility] [place] [facility] [address] [id number] [place] [address]- 5319 Oct, [facility] [place] [facility] [address] [id number] [place] [address]- 7669 Sep, [facility] [place] [facility] [address] [id number] [place] [address]- 4301 Sep, [facility] [place] [facility] [address] [id number] [place] [address] 2813 Sep, [facility] [place] [facility] [address] [id number] [place] [address]- 4041 Sep, [facility] [place] [facility] [address] [id number] [place] [address]- 8411 Sep, [facility] [place] [facility] [address] [id number] [place] [address]- 5167 Sep, [facility] [place] [facility] [address] [id number] [place] [address]- 9553 Sep, [facility] [place] [facility] [address] [id number] [place] [address]- 7853 Sep, [facility] [place] [facility] [address] [id number] [place] [address]- 0995 Sep, [facility] [place] [facility] [address] [id number] [place] [address]- 9974 Sep, [facility] [place] [facility] [address] [id number] [place] [address]- 1304 Aug, [facility] [place] [facility] [address] [id number] [place] [address]- 0498 30 Aug, 2014 [facility] [place] [facility] [address] [facility] [id number] [place] [address]- 3784 Aug, [facility] [place] [facility] [address] [id number] [place] [address]- 8711 Aug, [facility] [place] [facility] [address] [id number] [place] [address]- 3672 Aug, [facility] [place] [facility] [address] [id number] [place] [address]- 7629 Aug, [facility] [place] [facility] [address] [id number] [place] [address]- 6271 Aug, [facility] [place] [facility] [address] [facility] [id number] [place] [address]- 7373 Aug, [facility] [place] [facility] [address] [id number] [place] [address]- 5694 Jul, 2013 [facility] [place] [facility] [address] [id number] [place] [address]- 6189 Jul, 2013 [facility] [place] [facility] [address] [id number] [place] [address]- 9126 Jul, 2013 [facility] [place] [facility] [address] [id number] [place] [address]- 7711 Jul, 2013 [facility] [place] [facility] [address] [id number] [place] [address]- 5886 Jul, 2013 [facility] [place] [facility] [address] [id number] [place] [address]- 6070 Jul, 2013 [facility] [place] [facility] [address] [id number] [place] [address]- 6956 Jun, [facility] [place] [facility] [address] [id number] [place] [address]- 7713 Jun, [facility] [place] [facility] [address] [id number] [place] [address]- 6502 May, [facility] [place] [facility] [address] [id number] [place] [address]- 5225 May, [facility] [place] [facility] [address] [id number] [place] [address]- 9748 May, [facility] [place] [facility] [address] [id number] [place] [address]- 3862 May, [facility] [place] [facility] [address] [id number] [place] [address]- 3515 May, [facility] [place] [facility] [address] [id number] [place] [address]- 3806 May, [facility] [place] [facility] [address] [id number] [place] [address]- 0307 May, [facility] [place] [facility] [address] [id number] [place] [address]- 2922 May, [facility] [place] [facility] [address] [id number] [place] [address]- 0469 Apr, [facility] [place] [facility] [address] [id number] [place] [address]- 9510 Apr, [facility] [place] [facility] [address] [id number] [place] [address]- 7480 March, [facility] [place] [facility] [address] [id number] [place] [address]- 3902 March, [facility] [place] [facility] [address] [id number] [place] [address]- 1280 Feb, [facility] [place] [facility] [address] [id number] [place] [address]- 7052 Feb, [facility] [place] [facility] [address] [id number] [place] [address]- 6098 Feb, [facility] [place] [facility] [address] [id number] [place] [address]- 2457 Feb, [facility] [place] [facility] [address] [id number] [place] [address]- 4288 Feb, [facility] [place] [facility] [address] [id number] [place] [address]- 4686 Feb, [facility] [place] [facility] [address] [id number] [place] [address]- 3320 Feb, [facility] [place] [facility] [address] [id number] [place] [address]- 4497 Feb, [facility] [place] [facility] [address] [id number] [place] [address]- 1205 Feb, [facility] [place] [facility] [address] [id number] [place] [address]- 0841 Feb, [facility] [place] [facility] [address] [id number] [place] [address]- 7802 Jan, [facility] [place] [facility] [address] [id number] [place] [address]- 9345 Jan, [facility] [place] [facility] [address] [id number] [place] [address]- 0966 Jan, [facility] [place] [facility] [address] [id number] [place] [address]- 3696 Jan, [facility] [place] [facility] [address] [id number] [place] [address]- 7216 Jan, [facility] [place] [facility] [address] [id number] [place] [address]- 3766 Dec, [facility] [place] [facility] [address] [id number] [place] [address]- 7726 Dec, [facility] [place] [facility] [address] [id number] [place] [address]- 4616 Dec, [facility] [place] [facility] [address] [id number] [place] [address]- 3083 Dec, [facility] [place] [facility] [address] [id number] [place] [address]- 4569 Dec, [facility] [place] [facility] [address] [id number] [place] [address]- 3791 Dec, [facility] [place] [facility] [address] [id number] [place] [address]- 6223 Nov, [facility] [place] [facility] [address] [id number] [place] [address]- 3274 Nov, [facility] [place] [facility] [address] [id number] [place] [address]- 8176 Nov, [facility] [place] [facility] [address] [id number] [place] [address]- 5468 Nov, [facility] [place] [facility] [address] [id number] [place] [address]- 0726 Nov, [facility] [place] [facility] [address] [id number] [place] [address]- 9560 Nov, [facility] [address] [id number] [place] [address]- 4526 Nov, [facility] [place] [facility] [address] [id number] [place] [address]- 9841 Nov, [facility] [place] [facility] [address] [id number] [place] Oct, [facility] [place] [facility] [address] [id number] [place] [address]- 5988 Oct, [facility] [place] [facility] [address] [id number] [place] [address]- 6425 Oct, [facility] [place] [facility] [address] [id number] [place] [address]- 2385 Oct, [facility] [place] [facility] [address] [id number] [place] [address]- 0075 Oct, [facility] [place] [facility] [address] [id number] [place] [address]- 6159 Oct, [facility] [place] [facility] [address] [id number] [place] [address]- 3987 Oct, [facility] [place] [facility] [address] [id number] [place] [address]- 1890 Oct, [facility] [place] [facility] [address] [id number] [place] [address]- 0445 Sep, [facility] [place] [facility] [address] [id number] [place] [address]- 4446 Sep, [facility] [place] [facility] [address] [id number] [place] [address]- 7783 Sep, [facility] [place] [facility] [address] [id number] [place] [address]- 4698 Sep, [facility] [place] [facility] [address] [id number] [place] [address]- 3273 Sep, [facility] [place] [facility] [address] [id number] [place] [address]- 8118 Sep, [facility] [place] [facility] [address] [id number] [place] [address]- 3742 Sep, [facility] [place] [facility] [address] [id number] [place] [address]- 7406 Sep, [facility] [place] [facility] [address] [id number] [place] [address]- 7342 Aug, [facility] [place] [facility] [address] [id number] [place] [address]- 6628 Aug, [facility] [place] [facility] [address] [id number] [place] [address]- 4190 Aug, [facility] [place] [facility] [address] [id number] [place] [address]- 9559 Jul, [facility] [place] [facility] [address] [id number] [place] [address]- 9169 Jun, [facility] [place] [facility] [address] [id number] [place] [address]- 3257 Jun, [facility] [place] [facility] [address] [id number] [place] [address]- 1978 Jun, [facility] [place] [facility] [address] [id number] [place] [address]- 5231 Jun, [facility] [place] [facility] [address] [id number] [place] [address]- 2007 Jun, [facility] [place] [facility] [address] [id number] [place] [address]- 2016 May, [facility] [place] [facility] [address] [id number] [place] [address]- 3172 May, [facility] [place] [facility] [address] [id number] [place] [address]- 4013 Apr, [facility] [place] [facility] [address] [id number] [place] [address]- 6250 Apr, [facility] [place] [facility] [address] [id number] [place] [address]- 2490 March, [facility] [address] [id number] [place] [address]- 2895 March, [facility] [place] [facility] [address] [id number] [place] [address]- 4026 March, [facility] [address] [id number] [place] [address]- 8202 March, [facility] [address] [id number] [place] [address]- 7037 March, [facility] [address] [id number] [place] [address]- 4910 Feb, [facility] [address] [id number] [place] [address]- 8497 Feb, [facility] [address] [id number] [place] [address]- 5143 Feb, [facility] [address] [id number] [place] [address]- 1596 Jan, [facility] [address] [id number] [place] [address]- 4327 Dec, [facility] [address] [id number] [place] [address]- 1619 Dec, [facility] [address] [id number] [place] [address]- 8216 Dec, [facility] [place] [facility] [address] [id number] [place] [address]809 Dec, [facility] [place] [facility] [address] [id number] [place] [address]- 8638 Nov, [facility] [place] [facility] [address] [id number] [place] [address]- 0661 Nov, [facility] [place] [facility] [address] [id number] [place] [address]- 7362 Nov, [facility] [place] [facility] [address] [id number] [place] [address]- 8278 Nov, [facility] [place] [facility] [address] [id number] [place] 4175 Oct, [facility] [place] [facility] [address] [id number] [place] 9272 Oct, [facility] [place] [facility] [address] [id number] [place] [address]- 0865 Oct, [facility] [place] [facility] [address] [id number] [place] 6799 Oct, [facility] [place] [facility] [address] [id number] [place] [address]- 7535 Sep, [facility] [place] [facility] [address] [id number] [place] [address]- 7493 Sep, [facility] [place] [facility] [address] [id number] [place] [address]- 1955 Sep, [facility] [place] [facility] [address] [id number] [place] [address]- 9991 Sep, [facility] [place] [facility] [address] [id number] [place] [address]- 6015 Sep, [facility] [place] [facility] [address] [id number] [place] [address]- 3703 Sep, [facility] [place] [facility] [address] [id number] [place] [address]- 8995 Aug, [facility] [place] [facility] [address] [id number] [place] [address]- 9768 Aug, [facility] [place] [facility] [address] [id number] [place] [address]- 1417 Aug, [facility] [place] [facility] [address] [id number] [place] [address]- 1993 Jul, [facility] [place] [facility] [address] [id number] [place] [address]- 2546 Jul, [facility] [address] [id number] [place] [address]- 5286 Jun, [facility] [place] [facility] [address] [id number] [place] [address]- 2546 May, [facility] [address] [id number] [place] [address]- 2786 May, [facility] [address] [id number] [place] [address]- 5716 Apr, [facility] [address] [id number] [place] [address]- 3586 Apr, [facility] [address] [id number] [place] [address]- 8096 March, [facility] [address] [id number] [place] [address]- 0926 March, [facility] [address] [id number] [place] [address]- 5206 Feb, [facility] [address] [id number] [place] [address]- 0446 Feb, [facility] [address] [id number] [place] [address]- 4686 Feb, [facility] [address] [id number] [place] [address]- 2546 Feb, [facility] [address] [id number] [place] [address]- 1916 Jan, [facility] [place] [facility] [address] [id number] [place] [address]- 2416 Jan, [facility] [address] [id number] [place] [address]- 2546 Dec, [facility] [place] [facility] [address] [id number] [place] [address]- 7865 Dec, [facility] [address] [id number] [place] [address]- 0147 Dec, [facility] [place] [facility] [address] [id number] [place] [address]- 4276 23 Dec, 2011 [facility] [place] [facility] [address] [facility] [id number] [place] [address]- 0226 20 Dec, 2011 [facility] [place] [facility] [address] [id number] [place] [address]- 6588 15 Dec, 2011 [facility] [place] [facility] [address] [id number] [place] [address]- 3021 10 Dec, 2011 [facility] [place] [facility] [address] [facility] [id number] [place] [address]- 5952 09 Dec, 2011 [facility] [address] [id number] [place] [address]- 4069 08 Dec, 2011 [facility] [place] [facility] [address] [facility] [id number] [place] [address]- 8656 07 Dec, 2011 [facility] [place] [facility] [address] [id number] [place] [address]- 2732 02 Dec, 2011 [facility] [place] [facility] [address] [facility] [id number] [place] [address]- 2398 02 Dec, 2011 [facility] [place] [facility] [address] [id number] [place] [address]- 7882 Dec, [facility] [place] [facility] [address] [facility] [id number] [place] [address] Nov, [facility] [place] [facility] [address] [facility] [id number] [place] [address] Nov, [facility] [place] [facility] [address] [facility] [id number] [place] [address] Nov, [facility] [place] [facility] [address] [facility] [id number] [place] [address] Nov, [facility] [place] [facility] [address] [id number] [place] [address] Nov, [facility] [address] [id number] [place] [address] Nov, [facility] [place] [facility] [address] [id number] [place] [address] Oct, [facility] [place] [facility] [address] [id number] [place] [address] Oct, [facility] [place] [facility] [address] [id number] [place] [address] Sep, [facility] [place] [facility] [address] [id number] [place] [address] Sep, [facility] [place] [facility] [address] [id number] [place] [address] Sep, [facility] [address] [id number] [place] [address] Sep, [facility] [place] [facility] [address] [id number] [place] [address] Sep, [facility] [place] [facility] [address] [id number] [place] [address] March, [facility] [place] [facility] [address] [id number] [place] [address] Oct, [facility] [place] [facility] [address] [id number] [place] [address] Oct, [facility] [place] [facility] [address] [id number] [place] [address] Oct, [facility] [place] [facility] [address] [id number] [place] [address] 24 Sep, 2010 [facility] [place] [facility] [address] [id number] [place] [address] 17 Sep, 2010 [facility] [place] [facility] [address] [id number] [place] [address] Sep, [facility] [address] [facility] [id number] [place] [address] Sep, [facility] [id number] [address] Aug, [facility] [address] [id number] [address] Oct, [facility] [id number] [address] Oct, [facility] [address] [facility] [id number] [address] May, IMMUNIZATIONS No Known Immunizations SOCIAL HISTORY Never Assessed REASON FOR VISIT Controlled Med Refill 05/04 PLAN OF CARE VITAL SIGNS MEDICATIONS Medication [...]
--- OUTSIDE RECORDS SUMMARY | 2018-12-11 10:19 | XMS REPORT ---
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 Name Role Phone SANJEEV PHELPS Unavailable PROBLEMS Type Condition ICD9-CM Code RBH65-MR Code Onset Dates Condition Status SNOMED Code Problem Stress incontinence of urine N39.3 Active 11592805 Problem Anxiety F41.9 Active 90118840 Problem Anxiety disorder, unspecified F41.9 Active 752652556 Problem Unspecified episodic mood disorder F39 Active 483897858 Problem Unspecified personality disorder F60.9 Active 32543160 ALLERGIES No Information ENCOUNTERS Encounter Location Date Diagnosis [place] [id number] [place] [address] 36731- 2675 Jul, [place] [id number] [place] [address] 48053- 2954 Jun, [place] [id number] [place] [address] 11969- 6210 Jun, Anxiety disorder, unspecified F41.9 [place] [id number] [place] [address] 37373- 9258 May, Unspecified episodic mood disorder F39 ; Anxiety disorder, unspecified F41.9 and Unspecified personality disorder F60.9 [facility] [id number] [place] [address] 05772- 6665 May, Anxiety disorder, unspecified F41.9 [place] [id number] [place] [address] 14863- 2771 Apr, Anxiety disorder, unspecified F41.9 [place] [id number] [place] [address] 05595- 9391 Apr, Unspecified episodic mood disorder F39 ; Anxiety disorder, unspecified F41.9 and Unspecified personality disorder F60.9 [facility] [id number] [place] [address] 71035- 9910 March, Anxiety disorder, unspecified F41.9 [facility] [id number] [place] [address] 66693- 4744 March, Unspecified episodic mood disorder F39 ; Anxiety disorder, unspecified F41.9 and Unspecified personality disorder F60.9 [facility] [id number] [place] [address] 61331- 0980 March, Anxiety disorder, unspecified F41.9 [place] [id number] [place] [address] 58345- 1428 Feb, Unspecified episodic mood disorder F39 ; Anxiety disorder, unspecified F41.9 and Unspecified personality disorder F60.9 [place] [id number] [place] [address] 75555- 5956 Feb, Unspecified episodic mood disorder F39 ; Anxiety disorder, unspecified F41.9 and Unspecified personality disorder F60.9 [place] [id number] [place] [address] 58894- 5501 Feb, Anxiety disorder, unspecified F41.9 [facility] [id number] [place] [address] 72147- 2282 Jan, Unspecified episodic mood disorder F39 ; Anxiety disorder, unspecified F41.9 and Unspecified personality disorder F60.9 [facility] [address] [address] 0582 Jan, Anxiety F41.9 [facility] [id number] [place] [address] 77759- 0637 Jan, Anxiety disorder, unspecified F41.9 [facility] [address] [place] [address] 73893- 0198 Dec, Unspecified episodic mood disorder F39 ; Anxiety disorder, unspecified F41.9 and Unspecified personality disorder F60.9 [facility] [address] [address] 5079 08 Dec, 2017 Anxiety F41.9 [facility] [id number] [place] [address] 26012- 2713 Dec, Anxiety disorder, unspecified F41.9 [facility] [id number] [place] [address] 08993- 4640 Dec, Unspecified episodic mood disorder F39 ; Anxiety disorder, unspecified F41.9 and Unspecified personality disorder F60.9 [facility] [id number] [place] [address] 91828- 7611 Nov, [facility] [id number] [place] [address] 94864- 4509 Nov, [facility] [id number] [place] [address] 91861- 8328 Nov, Unspecified episodic mood disorder F39 ; Anxiety disorder, unspecified F41.9 and Unspecified personality disorder F60.9 [facility] [id number] [place] [address] 24532- 7805 Nov, Anxiety disorder, unspecified F41.9 [facility] [id number] [place] [address] 61155- 1156 Oct, Unspecified episodic mood disorder F39 ; Anxiety disorder, unspecified F41.9 and Unspecified personality disorder F60.9 [facility] [id number] [place] [address] 85504- 1553 Oct, Vaginal yeast infection B37.3 [facility] [id number] [place] [address] 28763- 6407 Oct, [facility] [id number] [place] [address] 46570- 0450 Oct, Anxiety disorder, unspecified F41.9 [facility] [address] [place] [address] 56032- 2209 Oct, Routine gynecological examination Z01.419 ; Screening for breast cancer Z12.31 and Vaginal yeast infection B37.3 [place] [address] 39074- 5905 Sep, Unspecified episodic mood disorder F39 ; Anxiety disorder, unspecified F41.9 and Unspecified personality disorder F60.9 [place] [address] 62024- 3004 Sep, [place] [address] 63093- 2583 Sep, Anxiety disorder, unspecified F41.9 [place] [address] 63225- 1026 Sep, Bronchitis J40 and Stress incontinence of urine N39.3 [place] [address] 45662- 7731 Sep, Stress incontinence of urine N39.3 ; Bronchitis J40 and Anxiety F41.9 [place] [address] 48055- 4238 Sep, [place] [address] 34868- 4548 Sep, Unspecified episodic mood disorder F39 ; Anxiety disorder, unspecified F41.9 and Unspecified personality disorder F60.9 [place] [address] 13959- 4633 Aug, Anxiety F41.9 ; Stress incontinence of urine N39.3 and Encounter for immunization Z23 [place] [address] 89624- 1585 Aug, Anxiety disorder, unspecified F41.9 [place] [address] 29793- 8307 Jul, Unspecified episodic mood disorder F39 ; Anxiety disorder, unspecified F41.9 and Unspecified personality disorder F60.9 [facility] [address] [address]- 0625 Jul, [facility] [id number] [place] [address] 69626- 9894 Jul, Unspecified episodic mood disorder F39 ; Anxiety disorder, unspecified F41.9 and Unspecified personality disorder F60.9 [facility] [id number] [place] [address] 11976- 5784 Jul, Anxiety disorder, unspecified F41.9 [facility] [address] [place] [address] 14464- 9778 Jun, Unspecified episodic mood disorder F39 ; Anxiety disorder, unspecified F41.9 and Unspecified personality disorder F60.9 [facility] [id number] [place] [address] 63217- 1280 Jun, Anxiety disorder, unspecified F41.9 [facility] [id number] [place] [address] 58736- 4613 Jun, Unspecified episodic mood disorder F39 ; Anxiety disorder, unspecified F41.9 and Unspecified personality disorder F60.9 [facility] [address] [address]- 7528 Jun, [facility] [address] [address]- 4113 May, Anxiety disorder, unspecified F41.9 [facility] [address] [address]- 5340 May, Unspecified episodic mood disorder F39 ; Anxiety disorder, unspecified F41.9 and Unspecified personality disorder F60.9 [facility] [address] [address]- 3698 Apr, Anxiety disorder, unspecified F41.9 [facility] [address] [place] [address]- 1813 March, Unspecified episodic mood disorder F39 ; Anxiety disorder, unspecified F41.9 and Unspecified personality disorder F60.9 [facility] [address] [place] [address] 96873- 0666 March, Bronchitis J40 [facility] [address], [place] [address]- 9646 March, Unspecified episodic mood disorder F39 ; Anxiety disorder, unspecified F41.9 and Unspecified personality disorder F60.9 [facility] [id number] [place] [address] 67859- 0652 Feb, [facility] [id number] [place] [address] 93512- 3453 Feb, Unspecified episodic mood disorder F39 ; Anxiety disorder, unspecified F41.9 and Unspecified personality disorder F60.9 [facility] [id number] [place] [address] 55493- 2988 Feb, Bronchitis J40 [facility] [id number] [place] [address] 57346- 3836 Feb, Unspecified episodic mood disorder F39 ; Anxiety disorder, unspecified F41.9 and Unspecified personality disorder F60.9 [facility] [address], [place] [address]- 0134 Jan, Unspecified episodic mood disorder F39 ; Anxiety disorder, unspecified F41.9 and Unspecified personality disorder F60.9 [facility] [address], [place] [address]- 7792 Jan, Bronchitis J40 [facility] [address], [place] [address]- 8427 Jan, Unspecified episodic mood disorder F39 ; Anxiety disorder, unspecified F41.9 and Unspecified personality disorder F60.9 [facility] [address], [place] [address]- 4109 Dec, Anxiety F41.9 [facility] [id number] [address]- 5202 Dec, Unspecified episodic mood disorder F39 ; Anxiety disorder, unspecified F41.9 and Unspecified personality disorder F60.9 [facility] [id number] [id number] Dec, [facility] [id number] [address]- 0213 Dec, Unspecified episodic mood disorder F39 ; Anxiety disorder, unspecified F41.9 and Unspecified personality disorder F60.9 [facility] [id number], [place] [address]- 6890 Nov, [facility] [address], [place] [address]- 9054 Oct, Unspecified episodic mood disorder F39 ; Anxiety disorder, unspecified F41.9 and Unspecified personality disorder F60.9 [facility] [address], [place] [address]- 4324 Oct, [facility] [id number] [address] -[address] Oct, Acute upper respiratory infection, unspecified J06.9 ; Other viral agents as the cause of diseases classified elsewhere B97.89 and Cough R05 [facility] [id number], [place] [address]- 4504 Aug, Unspecified episodic mood disorder F39 ; Anxiety disorder, unspecified F41.9 and Unspecified personality disorder F60.9 [facility] [id number], [place] [address]- 6722 Aug, [facility] [address], [place] [address]- 5959 Aug, [facility] [id number], [place] [address]- 6745 Aug, [facility] [id number], [place] [address]- 3941 Aug, Visit for TB skin test Z11.1 [facility] [address], [place] [address]- 7981 Jul, [facility] [address], [place] [address]- 6371 Jul, [facility] [address], [place] [address]- 0840 Jul, [facility] [address], [place] [address]- 5180 Jul, [facility] [address], [place] [address]- 0090 Jul, [facility] [address], [place] [address]- 9438 Jul, Unspecified episodic mood disorder F39 ; Anxiety disorder, unspecified F41.9 and Unspecified personality disorder F60.9 [facility] [address], [place] [address]- 5739 Jun, [facility] [address], [place] [address]- 5800 Jun, Unspecified episodic mood disorder F39 ; Anxiety disorder, unspecified F41.9 and Unspecified personality disorder F60.9 [facility] [address], [place] [address]- 8612 Jun, [facility] [address], [place] [address]- 1095 May, Unspecified episodic mood disorder F39 ; Anxiety disorder, unspecified F41.9 and Unspecified personality disorder F60.9 [facility] [address], [place] [address]- 5061 May, [facility] [address], [place] [address]- 2085 May, [facility] [address], [place] [address]- 1658 May, Edema, unspecified R60.9 [place] [address] [place] [address] 20798- 6874 Apr, [place] [id number] [place] [address]- 4825 Apr, Unspecified episodic mood disorder F39 ; Anxiety disorder, unspecified F41.9 and Unspecified personality disorder F60.9 [place] [id number] [place] [address] 96086- 9345 Apr, Anxiety F41.9 [place] [id number] [place] [address] 37539- 8364 March, Unspecified episodic mood disorder F39 ; Anxiety disorder, unspecified F41.9 and Unspecified personality disorder F60.9 [place] [id number] [place] [address] 12627- 4861 March, Unspecified episodic mood disorder F39 ; Anxiety disorder, unspecified F41.9 and Unspecified personality disorder F60.9 [place] [id number] [place] [address] 86761- 6505 Feb, Anxiety F41.9 [place] [id number] [place] [address] 71649- 0813 Feb, Unspecified episodic mood disorder F39 ; Anxiety disorder, unspecified F41.9 and Unspecified personality disorder F60.9 [place] [id number] [place] [address] 43987- 4882 Jan, Unspecified episodic mood disorder F39 ; Anxiety disorder, unspecified F41.9 and Unspecified personality disorder F60.9 [place] [id number] [place] [address] 97597- 8673 Jan, Unspecified episodic mood disorder F39 ; Anxiety disorder, unspecified F41.9 and Unspecified personality disorder F60.9 [place] [id number] [place] [address] 66175- 2540 Jan, Edema, unspecified R60.9 [facility] [address], [place] [address]- 3273 Dec, [facility] [address] [place] [address] 98891- 4466 Dec, [facility] [id number] [place] [address] 47721- 5618 Dec, [facility] [id number] [place] [address] 21846- 2585 Dec, Unspecified episodic mood disorder F39 ; Anxiety disorder, unspecified F41.9 and Unspecified personality disorder F60.9 [place] [id number] [place] [address] 10409- 2756 Nov, [facility] [id number] [place] [address] 04883- 7786 Nov, Unspecified episodic mood disorder F39 ; Anxiety disorder, unspecified F41.9 and Unspecified personality disorder F60.9 [facility] [address] [place] [address] 37046- 2605 Oct, Unspecified episodic mood disorder F39 ; Anxiety disorder, unspecified F41.9 and Unspecified personality disorder F60.9 [place] [address] [place] [address] 25517- 7645 Oct, Unspecified episodic mood disorder F39 ; Anxiety disorder, unspecified F41.9 and Unspecified personality disorder F60.9 [facility] [address], [place] [address]- 0494 Sep, Unspecified episodic mood disorder F39 ; Anxiety disorder, unspecified F41.9 and Unspecified personality disorder F60.9 [facility] [address], [place] [address]- 3524 Sep, Encounter for immunization Z23 [facility] [id number] [place] [address] 26580- 5219 Sep, Edema of left lower extremity R60.0 [facility] [address], [place] [address]- 9267 Aug, Unspecified episodic mood disorder F39 ; Anxiety disorder, unspecified F41.9 and Unspecified personality disorder F60.9 [facility] [address], [place] [address]- 6782 Aug, [facility] [id number] [place] [address] 48606- 1679 Aug, Edema of left lower extremity R60.0 [facility] [address] [place] [address] 74387- 5844 Aug, [facility] [id number] [place] [address] 35905- 4729 Aug, Unspecified episodic mood disorder F39 ; Anxiety disorder, unspecified F41.9 and Unspecified personality disorder F60.9 [facility] [address], [place] [address]- 4134 Jul, Unspecified episodic mood disorder 296.90 ; Anxiety disorder , unspecified 300.00 and Unspecified personality disorder 301.9 [facility] [address] [place] [address] 76495- 4543 Jul, Unspecified episodic mood disorder 296.90 ; Anxiety disorder , unspecified 300.00 and Unspecified personality disorder 301.9 [facility] [address], [place] [address]- 4725 Jul, [facility] [address], [place] [address]- 4521 Jun, Unspecified episodic mood disorder 296.90 ; Anxiety disorder , unspecified 300.00 and Unspecified personality disorder 301.9 [facility] [id number], [place] [address]- 4363 May, Unspecified episodic mood disorder 296.90 ; Anxiety disorder , unspecified 300.00 and Unspecified personality disorder 301.9 [facility] [address], [place] [address]- 6706 May, Anxiety disorder, unspecified 300.00 [facility] [id number] [place] [address] 84669- 2215 May, Anxiety disorder, unspecified 300.00 and Edema 782.3 [facility] [id number] [place] [address] 74011- 8963 May, Unspecified episodic mood disorder 296.90 ; Anxiety disorder , unspecified 300.00 and Unspecified personality disorder 301.9 [facility] [id number] [place] [address] 61401- 3871 Apr, [facility] [id number] [place] [address] 87024- 3985 Apr, Unspecified episodic mood disorder 296.90 ; Anxiety disorder , unspecified 300.00 and Personality disorder, unspecified 301.9 [facility] [id number] [place] [address] 62765- 1033 Apr, Unspecified episodic mood disorder 296.90 ; Anxiety disorder , unspecified 300.00 and Unspecified personality disorder 301.9 [facility] [id number] [address]- 7256 March, [facility] [address], [place] [address]- 5033 March, Unspecified episodic mood disorder 296.90 ; Anxiety disorder , unspecified 300.00 and Unspecified personality disorder 301.9 [facility] [address], [place] [address]- 0052 March, Unspecified episodic mood disorder 296.90 ; Anxiety disorder 300.00 and Unspecified personality disorder 301.9 [facility] [id number] [address]- 3402 March, [facility] [address], [place] [address]- 3002 March, [facility] [id number] [place] [address]- 2546 29 Feb, 2014 [facility] [place] [facility] [address] [id number] [place] [address]- 6956 14 Feb, 2015 [facility] [place] [facility] [address] [id number] [place] [address]- 2546 13 Feb, 2015 [facility] [place] [facility] [address] [id number] [place] [address]- 7936 30 Jan, 2015 [facility] [place] [facility] [address] [id number] [place] [address]- 2546 30 Jan, 2015 [facility] [place] [facility] [address] [id number] [place] [address]- 2436 Jan, [facility] [place] [facility] [address] [id number] [place] [address]- 2546 Jan, [facility] [place] [facility] [address] [facility] [id number] [place] [address]- 0296 Jan, [facility] [place] [facility] [address] [facility] [id number] [place] [address]- 2986 Jan, [facility] [place] [facility] [address] [facility] [id number] [place] [id number] Jan, [facility] [place] [facility] [address] [facility] [id number] [place] [address]- 2636 Jan, [facility] [place] [facility] [address] [facility] [id number] [place] [address]- 2486 Jan, [facility] [place] [facility] [address] [facility] [id number] [place] [address]- 2546 Jan, [facility] [place] [facility] [address] [id number] [place] [address]- 0026 Jan, [facility] [place] [facility] [address] [facility] [id number] [place] [address]- 5376 Jan, 2014 [facility] [place] [facility] [address] [facility] [id number] [place] [address]- 2126 Jan, [facility] [place] [facility] [address] [id number] [place] [address]- 0271 Jan, 2014 [facility] [place] [facility] [address] [id number] [place] [address]- 4836 Jan, 2014 [facility] [place] [facility] [address] [id number] [place] [address]- 2851 Jan, 2014 [facility] [place] [facility] [address] [id number] [place] [address]- 8796 Dec, 2014 [facility] [place] [facility] [address] [id number] [place] [address]- 9614 Dec, 2014 [facility] [place] [facility] [address] [id number] [place] [address]- 0881 Dec, 2014 [facility] [place] [facility] [address] [id number] [place] [address]- 9837 Dec, 2014 [facility] [place] [facility] [address] [id number] [place] [address] Nov, [facility] [place] [facility] [address] [id number] [place] [address] Nov, [facility] [place] [facility] [address] [facility] [id number] [place] [address] Nov, [facility] [place] [facility] [address] [facility] [id number] [place] [address] Nov, [facility] [place] [facility] [address] [id number], [place] [address] Oct, [facility] [place] [facility] [address] [id number] [place] [address] Oct, [facility] [place] [facility] [address] [id number] [place] [address] Oct, [facility] [place] [facility] [address] [id number], [place] [address] Oct, [facility] [place] [facility] [address] [id number] [place] [address] Oct, [facility] [place] [facility] [address] [id number] [place] [address] Oct, [facility] [place] [facility] [address] [id number] [place] [address] 8411 Oct, [facility] [place] [facility] [address] [id number] [place] [address] 2595 Oct, [facility] [place] [facility] [address] [id number] [place] [address]- 1042 Oct, [facility] [place] [facility] [address] [id number] [place] [address] 1524 Oct, [facility] [place] [facility] [address] [id number] [place] [address]- 9796 Oct, [facility] [place] [facility] [address] [id number] [place] [address]- 3313 Oct, [facility] [place] [facility] [address] [id number] [place] [address]- 4366 Oct, [facility] [place] [facility] [address] [id number] [place] [address]- 2909 Oct, [facility] [place] [facility] [address] [id number] [place] [address] 8710 Oct, [facility] [place] [facility] [address] [id number] [place] [address] 0740 Oct, [facility] [place] [facility] [address] [id number] [place] [address] 4430 Sep, [facility] [place] [facility] [address] [id number] [place] [address]- 4657 Sep, [facility] [place] [facility] [address] [id number] [place] [address]- 6144 Sep, [facility] [place] [facility] [address] [id number] [place] [address]- 8898 Sep, [facility] [place] [facility] [address] [id number] [place] [address]- 6901 14 Sep, 2014 [facility] [place] [facility] [address] [id number] [place] [address]- 5435 14 Sep, 2014 [facility] [place] [facility] [address] [id number] [place] [address]- 1175 Sep, [facility] [place] [facility] [address] [id number] [place] [address]- 5878 Sep, [facility] [place] [facility] [address] [id number] [place] [address]- 8654 Sep, [facility] [place] [facility] [address] [id number] [place] [address]- 7839 Sep, [facility] [place] [facility] [address] [id number] [place] [address]- 4254 30 Aug, 2014 [facility] [place] [facility] [address] [id number] [place] [address]- 7330 30 Aug, 2014 [facility] [place] [facility] [address] [id number] [place] [address]- 7323 14 Aug, 2014 [facility] [place] [facility] [address] [id number] [place] [address]- 9670 14 Aug, 2014 [facility] [place] [facility] [address] [id number] [place] [address]- 6390 Aug, [facility] [place] [facility] [address] [id number] [place] [address]- 9289 Aug, [facility] [place] [facility] [address] [id number] [place] [address]- 9403 Aug, [facility] [place] [facility] [address] [id number] [place] [address] Aug, [facility] [place] [facility] [address] [id number] [place] [address] 29 Jul, 2014 [facility] [place] [facility] [address] [id number] [place] [address]- 4533 Jul, [facility] [place] [facility] [address] [id number] [place] [address]- 2517 Jul, 2013 [facility] [place] [facility] [address] [id number] [place] [address]- 1791 Jul, [facility] [place] [facility] [address] [id number] [place] [address]- 0311 Jul, [facility] [place] [facility] [address] [id number] [place] [address]- 9558 Jul, [facility] [place] [facility] [address] [id number] [place] [address]- 6671 Jun, [facility] [place] [facility] [address] [id number] [place] [address]- 9803 Jun, [facility] [place] [facility] [address] [id number] [place] [address]- 7510 May, [facility] [place] [facility] [address] [id number] [place] [address]- 6973 May, [facility] [place] [facility] [address] [id number] [place] [address]- 9385 May, [facility] [place] [facility] [address] [id number] [place] [address]- 1453 May, [facility] [place] [facility] [address] [id number] [place] [address]- 2245 May, [facility] [place] [facility] [address] [id number], [place] [address] 1818 May, [facility] [place] [facility] [address] [id number] [place] [address]- 3285 May, [facility] [place] [facility] [address] [id number] [place] [address]- 9165 May, [facility] [place] [facility] [address] [id number] [place] [address]- 1159 Apr, [facility] [place] [facility] [address] [id number] [place] [address]- 7445 Apr, [facility] [address] [id number] [place] [address]- 1999 March, [facility] [place] [facility] [address] [id number] [place] [address]- 6388 March, [facility] [place] [facility] [address] [id number] [place] [address]- 9088 Feb, [facility] [place] [facility] [address] [id number] [place] [address]- 0774 Feb, [facility] [place] [facility] [address] [id number] [place] [address]- 3022 Feb, [facility] [place] [facility] [address] [id number] [place] [address]- 0826 Feb, [facility] [place] [facility] [address] [id number] [place] [address]- 2034 Feb, [facility] [place] [facility] [address] [id number] [place] [address]- 2074 Feb, [facility] [place] [facility] [address] [id number] [place] [address]- 3670 Feb, [facility] [place] [facility] [address] [id number] [place] [address]- 5762 Feb, [facility] [place] [facility] [address] [id number] [place] [address]- 2383 Feb, [facility] [place] [facility] [address] [id number] [place] [address]- 2888 Feb, [facility] [place] [facility] [address] [id number] [place] [address]- 2154 Jan, [facility] [place] [facility] [address] [id number] [place] [address]- 1135 Jan, [facility] [place] [facility] [address] [id number] [place] Jan, [facility] [place] [facility] [address] [id number] [place] [address]- 8153 Jan, [facility] [place] [facility] [address] [id number] [place] [address]- 2146 Jan, [facility] [place] [facility] [address] [id number] [place] [address]- 9116 Dec, [facility] [place] [facility] [address] [id number] [place] [address]- 8256 Dec, [facility] [place] [facility] [address] [id number] [place] [address]- 1088 Dec, [facility] [place] [facility] [address] [id number] [place] [address]- 7546 Dec, [facility] [place] [facility] [address] [id number] [place] [address]- 1370 Dec, [facility] [place] [facility] [address] [id number] [place] [address]- 9588 Dec, [facility] [place] [facility] [address] [id number] [place] [address]- 9712 Nov, [facility] [place] [facility] [address] [id number] [place] [address]- 3615 Nov, [facility] [place] [facility] [address] [id number] [place] [address]- 7207 Nov, [facility] [place] [facility] [address] [id number] [place] [address]- 8981 Nov, [facility] [place] [facility] [address] [id number] [place] [address] 2546 Nov, [facility] [place] [facility] [address] [id number] [place] [address]- 8004 Nov, [facility] [place] [facility] [address] [id number] [place] [address]- 2547 Nov, [facility] [place] [facility] [address] [id number], [place] [address]- 2262 Nov, [facility] [address] [id number] [place] [address]- 6803 Oct, [facility] [address] [id number] [place] [address]- 4093 Oct, [facility] [address] [id number] [place] Oct, [facility] [place] [facility] [address] [id number] [place] [address]- 5011 06 Oct, 2013 [facility] [address] [id number] [place] [address]- 1545 Oct, [facility] [address] [id number] [place] [address]- 0543 Oct, [facility] [address] [id number] [place] [address]- 4268 Oct, [facility] [address] [id number] [place] [address]- 6374 Oct, [facility] [address] [id number] [place] [address]- 8697 Sep, [facility] [address] [id number] [place] [address]- 9914 Sep, [facility] [address] [id number] [place] [address]- 9222 14 Sep, 2013 [facility] [place] [facility] [address] [id number], [place] [address]- 9538 14 Sep, 2013 [facility] [place] [facility] [address] [id number], [place] [address]- 5860 07 Sep, 2013 [facility] [place] [facility] [address] [id number], [place] [address]- 3022 07 Sep, 2013 [facility] [place] [facility] [address] [facility] [id number], [place] [address]- 8186 04 Sep, 2013 [facility] [place] [facility] [address] [id number] [place] [address]- 2530 Sep, [facility] [place] [facility] [address] [id number] [place] [address]- 1497 Aug, [facility] [place] [facility] [address] [id number] [place] [address]- 1425 Aug, [facility] [place] [facility] [address] [id number] [place] [address]- 2388 Aug, [facility] [place] [facility] [address] [id number] [place] [address]- 0022 Jul, [facility] [place] [facility] [address] [id number] [place] [address]- 9212 Jun, [facility] [place] [facility] [address] [id number] [place] [address]- 7325 Jun, [facility] [place] [facility] [address] [id number] [place] [address]- 6014 Jun, [facility] [place] [facility] [address] [id number] [place] [address]- 2863 Jun, [facility] [place] [facility] [address] [id number] [place] [address]- 2923 Jun, [facility] [place] [facility] [address] [id number] [place] [address]- 6212 May, [facility] [place] [facility] [address] [id number] [place] [address]- 3402 May, [facility] [place] [facility] [address] [id number] [place] [address]- 3131 Apr, [facility] [place] [facility] [address] [id number] [place] [address]- 8606 Apr, [facility] [place] [facility] [address] [id number] [place] [address]- 5824 March, [facility] [place] [facility] [address] [id number] [place] [address]- 1823 March, [facility] [address] [id number] [place] [address]- 6514 March, [facility] [address] [id number] [place] [address]- 5411 March, [facility] [address] [id number] [place] [address]- 4686 March, [facility] [address] [id number] [place] [address]- 8165 Feb, [facility] [address] [id number] [place] [address]- 5513 Feb, [facility] [address] [id number] [place] [address]- 5263 Feb, [facility] [address] [id number] [place] [address]- 5180 Jan, [facility] [address] [id number] [place] [address]- 3647 Dec, [facility] [address] [id number] [place] [address]- 3771 Dec, [facility] [address] [id number] [place] [address]- 1130 Dec, [facility] [address] [id number] [place] [address]- 2430 Dec, [facility] [place] [facility] [address] [id number] [place] [address]- 7509 Nov, [facility] [place] [facility] [address] [id number] [place] [address]- 0038 Nov, [facility] [place] [facility] [address] [id number] [place] [address]- 4149 Nov, [facility] [place] [facility] [address] [id number] [place] [address]- 2030 Nov, [facility] [place] [facility] [address] [id number] [place] [address]- 9319 Oct, [facility] [place] [facility] [address] [id number] [place] [address]- 7880 Oct, [facility] [place] [facility] [address] [id number] [place] [address]- 0566 Oct, [facility] [address] [id number] [place] [address]- 3103 Oct, [facility] [place] [facility] [address] [id number] [place] [address]- 4358 Sep, [facility] [place] [facility] [address] [id number] [place] [address]- 5271 14 Sep, 2012 [facility] [place] [facility] [address] [id number] [place] [address]- 4972 Sep, [facility] [place] [facility] [address] [id number] [place] [address]- 8525 Sep, [facility] [address] [id number] [place] [address]- 4510 Sep, [facility] [place] [facility] [address] [id number] [place] [address]- 9338 Sep, [facility] [place] [facility] [address] [id number] [place] [address]- 9752 Aug, [facility] [place] [facility] [address] [id number] [place] [address]- 2926 Aug, [facility] [place] [facility] [address] [id number] [place] [address]- 1196 Aug, [facility] [place] [facility] [address] [id number] [place] [address]- 2435 Jul, [facility] [place] [facility] [address] [id number] [place] [address]- 0026 04 Jul, 2012 [facility] [place] [facility] [address] [id number] [place] [address]- 0985 Jun, [facility] [place] [facility] [address] [id number] [place] [address]- 9014 May, [facility] [place] [facility] [address] [id number] [place] [address]- 6344 May, [facility] [place] [facility] [address] [id number] [place] [address]- 1192 Apr, [facility] [place] [facility] [address] [id number] [place] [address]- 9489 Apr, [facility] [place] [facility] [address] [id number] [place] [address]- 6350 March, [facility] [place] [facility] [address] [id number] [place] [address]- 0106 March, [facility] [place] [facility] [address] [id number] [place] [address]- 3490 Feb, [facility] [place] [facility] [address] [id number] [place] [address]- 4795 Feb, [facility] [place] [facility] [address] [id number] [place] [address]- 2727 Feb, [facility] [place] [facility] [address] [id number] [place] [address]- 3532 Feb, [facility] [place] [facility] [address] [id number] [place] [address]- 7703 Jan, [facility] [place] [facility] [address] [id number] [place] [address]- 2835 Jan, [facility] [place] [facility] [address] [id number] [place] [address]- 2686 Dec, [facility] [place] [facility] [address] [id number] [place] [address]- 8324 Dec, [facility] [place] [facility] [address] [id number] [place] [address]- 5599 Dec, [facility] [place] [facility] [address] [id number] [place] [address]- 1156 23 Dec, 2011 [facility] [address] [id number] [place] [address]- 0966 20 Dec, 2011 [facility] [place] [facility] [address] [id number] [place] [address] 2546 15 Dec, 2011 [facility] [place] [facility] [address] [id number] [place] [address]- 0626 10 Dec, 2011 [facility] [place] [facility] [address] [id number] [place] [address]- 2546 09 Dec, 2011 [facility] [place] [facility] [address] [id number] [place] [address]- 6956 08 Dec, 2011 [facility] [place] [facility] [address] [id number] [place] [address]- 2546 07 Dec, 2011 [facility] [place] [facility] [address] [id number] [place] [address] 2549 Dec, [facility] [place] [facility] [address] [id number] [place] [address]- 0315 Dec, [facility] [place] [facility] [address] [facility] [id number] [place] [address]- 4671 Dec, [facility] [place] [facility] [address] [id number] [place] [address]- 9419 Nov, [facility] [place] [facility] [address] [id number] [place] [address] 2546 Nov, [facility] [place] [facility] [address] [id number] [place] [address]- 7959 Nov, [facility] [place] [facility] [address] [id number] [place] [address] 2546 Nov, [facility] [place] [facility] [address] [id number] [place] [address]- 7572 Nov, [facility] [place] [facility] [address] [id number] [place] [address]- 1922 Nov, [facility] [place] [facility] [address] [id number] [place] [address]- 4266 30 Oct, 2011 [facility] [place] [facility] [address] [id number] [place] [address]- 1059 Oct, [facility] [place] [facility] [address] [id number] [place] 5901 Sep, [facility] [place] [facility] [address] [id number] [place] [address]- 2545 Sep, [facility] [place] [facility] [address] [id number] [place] [address]- 0916 Sep, [facility] [place] [facility] [address] [id number] [place] [address]- 4447 Sep, [facility] [place] [facility] [address] [id number] [place] [address]- 5195 Sep, [facility] [place] [facility] [address] [id number] [place] [address]- 2913 March, [facility] [place] [facility] [address] [id number] [place] [address]- 1935 Oct, [facility] [place] [facility] [address] [id number] [place] [address]- 0747 Oct, [facility] [place] [facility] [address] [id number] [place] [address]- 5376 Oct, [facility] [place] [facility] [address] [id number], [place] [address]- 5196 24 Sep, 2010 [facility] [place] [facility] [address] [id number] [place] [address]- 4034 17 Sep, 2010 [facility] [place] [facility] [address] [id number] [place] [address]- 2913 17 Sep, 2010 [facility] [place] [facility] [address] [id number] [place] 2516 16 Sep, 2010 [facility] [place] [facility] [address] [facility] [id number] [place] [address] 2546 Aug, [facility] [address] [facility] [id number], [place] [address]- 5096 Oct, [facility] [address] [facility] [id number], [place] [address]- 3064 Oct, [facility] [address] [facility] [id number], [place] [address]- 6048 May, IMMUNIZATIONS No Known Immunizations SOCIAL HISTORY Never Assessed REASON FOR VISIT f/u PLAN OF CARE Activity Details Follow Up Next available Reason: F/U VITAL SIGNS MEDICATIONS Unknown Medications RESULTS No Results PROCEDURES Procedure Date Ordered Result Body Site Psychotherapy, patient &/family, 45 minutes, established patient April 25, 2018 INSTRUCTIONS MEDICATIONS ADMINISTERED No Known Medications MEDICAL (GENERAL) HISTORY Type Description Date Medical History hypertension Medical History panic attacks Surgical History cholecystectomy 2008 Hospitalization History surgery
--- OUTSIDE RECORDS SUMMARY | 2018-12-11 10:20 | XMS REPORT ---
Author Author SANJEEV PHELPS [facility] Address [address] [place] [address] Care Team Providers Care Scraper Hand Name Role Phone SANJEEV PHELPS Unavailable PROBLEMS Type Condition ICD9-CM Code [id number] Code Onset Dates Condition Status SNOMED Code Problem Stress incontinence of urine N39.3 Active 40606695 Problem Anxiety F41.9 Active 08102554 Problem Anxiety disorder, unspecified F41.9 Active 503892641 Problem Unspecified episodic mood disorder F39 Active 568020915 Problem Unspecified personality disorder F60.9 Active [id number] ALLERGIES No Information ENCOUNTERS Encounter Location Date Diagnosis [place] [id number] [place] [address] 15181- 1249 Jun, [facility] [id number] [place] [address] 96669- 1067 May, Unspecified episodic mood disorder F39 ; Anxiety disorder, unspecified F41.9 and Unspecified personality disorder F60.9 [place] [id number] [place] [address] 15176- 6921 May, Anxiety disorder, unspecified F41.9 [place] [id number] [place] [address] 26056- 9331 Apr, Anxiety disorder, unspecified F41.9 [place] [id number] [place] [address] 13101- 8963 Apr, Unspecified episodic mood disorder F39 ; Anxiety disorder, unspecified F41.9 and Unspecified personality disorder F60.9 [place] [id number] [place] [address] 40060- 3528 March, Anxiety disorder, unspecified F41.9 [place] [id number] [address] 4[address] March, Unspecified episodic mood disorder F39 ; Anxiety disorder, unspecified F41.9 and Unspecified personality disorder F60.9 [facility] [id number] [place] [address] 07864- 2537 March, Anxiety disorder, unspecified F41.9 [facility] [id number] [place] [address] 09699- 9206 Feb, Unspecified episodic mood disorder F39 ; Anxiety disorder, unspecified F41.9 and Unspecified personality disorder F60.9 [place] [id number] [place] [address] 53297- 6878 Feb, Unspecified episodic mood disorder F39 ; Anxiety disorder, unspecified F41.9 and Unspecified personality disorder F60.9 [place] [id number] [place] [address] 09979- 1712 Feb, Anxiety disorder, unspecified F41.9 [facility] [id number] [place] [address] 12590- 0656 Jan, Unspecified episodic mood disorder F39 ; Anxiety disorder, unspecified F41.9 and Unspecified personality disorder F60.9 [facility] [id number] [place] [address] 02179- 5341 Jan, Anxiety F41.9 [facility] [id number] [place] [address] 95428- 0576 Jan, Anxiety disorder, unspecified F41.9 [facility] [id number] [place] [address] 05077- 0712 Dec, Unspecified episodic mood disorder F39 ; Anxiety disorder, unspecified F41.9 and Unspecified personality disorder F60.9 [facility] [id number] [place] [address] 45204- 7445 Dec, Anxiety F41.9 [facility] [id number] [place] [address] 41851- 8120 Dec, Anxiety disorder, unspecified F41.9 [facility] [id number] [place] [address] 88510- 0080 Dec, Unspecified episodic mood disorder F39 ; Anxiety disorder, unspecified F41.9 and Unspecified personality disorder F60.9 [facility] [address] [address]- 4251 Nov, [facility] [id number] [place] [address] 41233- 8096 Nov, [facility] [id number] [place] [address] 46150- 7813 Nov, Unspecified episodic mood disorder F39 ; Anxiety disorder, unspecified F41.9 and Unspecified personality disorder F60.9 [place] [id number] [place] [address] 39596- 8365 Nov, Anxiety disorder, unspecified F41.9 [facility] [id number] [place] [address] 44277- 7157 Oct, Unspecified episodic mood disorder F39 ; Anxiety disorder, unspecified F41.9 and Unspecified personality disorder F60.9 [facility] [id number] [place] [address] 32921- 1179 Oct, Vaginal yeast infection B37.3 [facility] [id number] [place] [address] 78929- 2261 Oct, [facility] [id number] [place] [address] 33658- 1081 Oct, Anxiety disorder, unspecified F41.9 [facility] [id number] [place] [address] 39872- 4569 Oct, Routine gynecological examination Z01.419 ; Screening for breast cancer Z12.31 and Vaginal yeast infection B37.3 [facility] [address] [place] [address] 81598- 1087 Sep, Unspecified episodic mood disorder F39 ; Anxiety disorder, unspecified F41.9 and Unspecified personality disorder F60.9 [place] [id number] [place] [address] 37657- 7625 Sep, [place] [id number] [place] [address] 86896- 3832 Sep, Anxiety disorder, unspecified F41.9 [place] [address] 46889- 3306 Sep, Bronchitis J40 and Stress incontinence of urine N39.3 [place] [address] 72741- 8215 Sep, Stress incontinence of urine N39.3 ; Bronchitis J40 and Anxiety F41.9 [place] [id number] [place] [address] 79163- 8422 Sep, [place] [id number] [place] [address] 74411- 3501 Sep, Unspecified episodic mood disorder F39 ; Anxiety disorder, unspecified F41.9 and Unspecified personality disorder F60.9 [place] [id number] [place] [address] 93389- 8442 Aug, Anxiety F41.9 ; Stress incontinence of urine N39.3 and Encounter for immunization Z23 [place] [id number] [place] [address] 30586- 9572 Aug, Anxiety disorder, unspecified F41.9 [place] [id number] [place] [address] 72101- 4552 Jul, Unspecified episodic mood disorder F39 ; Anxiety disorder, unspecified F41.9 and Unspecified personality disorder F60.9 [place] [id number] [place] [address] 95535- 6613 Jul, [place] [id number] [place] [address] 20947- 3944 Jul, Unspecified episodic mood disorder F39 ; Anxiety disorder, unspecified F41.9 and Unspecified personality disorder F60.9 [facility] [id number] [place] [address] 09160- 8531 Jul, Anxiety disorder, unspecified F41.9 [facility] [id number] [place] [address] 45304- 9228 Jun, Unspecified episodic mood disorder F39 ; Anxiety disorder, unspecified F41.9 and Unspecified personality disorder F60.9 [facility] [id number] [place] [address] 83205- 6510 Jun, Anxiety disorder, unspecified F41.9 [facility] [id number] [place] [address] 12343- 6259 Jun, Unspecified episodic mood disorder F39 ; Anxiety disorder, unspecified F41.9 and Unspecified personality disorder F60.9 [facility] [id number] [place] [address] 02461- 9592 Jun, [facility] [id number] [place] [address] 38265- 2076 May, Anxiety disorder, unspecified F41.9 [facility] [id number] [place] [address] 79658- 6400 May, Unspecified episodic mood disorder F39 ; Anxiety disorder, unspecified F41.9 and Unspecified personality disorder F60.9 [facility] [id number] [place] [address] 42300- 1707 Apr, Anxiety disorder, unspecified F41.9 [facility] [id number] [address]- 6918 March, Unspecified episodic mood disorder F39 ; Anxiety disorder, unspecified F41.9 and Unspecified personality disorder F60.9 [facility] [address] [address]- 8108 March, Bronchitis J40 [facility] [id number] [address]- 6376 March, Unspecified episodic mood disorder F39 ; Anxiety disorder, unspecified F41.9 and Unspecified personality disorder F60.9 [facility] [id number] [place] [address] 74435- 2403 Feb, [facility] [id number] [place] [address] 27095- 6362 Feb, Unspecified episodic mood disorder F39 ; Anxiety disorder, unspecified F41.9 and Unspecified personality disorder F60.9 [facility] [id number] [place] [address] 96286- 8449 Feb, Bronchitis J40 [facility] [id number] [place] [address] 19141- 6921 Feb, Unspecified episodic mood disorder F39 ; Anxiety disorder, unspecified F41.9 and Unspecified personality disorder F60.9 [facility] [id number] [place] [address] 61478- 0132 Jan, Unspecified episodic mood disorder F39 ; Anxiety disorder, unspecified F41.9 and Unspecified personality disorder F60.9 [facility] [id number] [place] [address] 49198- 1992 Jan, Bronchitis J40 [facility] [id number] [place] [address] 93889- 7251 Jan, Unspecified episodic mood disorder F39 ; Anxiety disorder, unspecified F41.9 and Unspecified personality disorder F60.9 [facility] [id number] [place] [address] 65873- 1435 Dec, Anxiety F41.9 [facility] [id number] [place] [address] 21500- 9209 Dec, Unspecified episodic mood disorder F39 ; Anxiety disorder, unspecified F41.9 and Unspecified personality disorder F60.9 [facility] [id number] [address] Dec, [facility] [address] [place] [address]- 8038 Dec, Unspecified episodic mood disorder F39 ; Anxiety disorder, unspecified F41.9 and Unspecified personality disorder F60.9 [facility] [address], [place] [address]- 8480 Nov, [facility] [id number] [place] [address] 12833- 9095 Oct, Unspecified episodic mood disorder F39 ; Anxiety disorder, unspecified F41.9 and Unspecified personality disorder F60.9 [facility] [id number] [place] [address] 23542- 1148 Oct, [facility] [address] [address] Oct, Acute upper respiratory infection, unspecified J06.9 ; Other viral agents as the cause of diseases classified elsewhere B97.89 and Cough R05 [facility] [address] [place] [address]- 1027 Aug, Unspecified episodic mood disorder F39 ; Anxiety disorder, unspecified F41.9 and Unspecified personality disorder F60.9 [facility] [address] [address]- 5416 Aug, [facility] [address] [address]- 6209 Aug, [facility] [address] [place] [address]- 8513 Aug, [facility] [address], [place] [address]- 0595 Aug, Visit for TB skin test Z11.1 [facility] [address], [place] [address]- 2091 Jul, [facility] [id number] [place] [address] 76287- 4462 Jul, [facility] [address] [facility] [id number] [place] [address]- 8776 Jul, [facility] [address] [facility] [id number] [place] [address]- 7716 Jul, [facility] [id number] [place] [address]- 7556 Jul, [facility] [id number] [place] [address] 65535- 2530 Jul, Unspecified episodic mood disorder F39 ; Anxiety disorder, unspecified F41.9 and Unspecified personality disorder F60.9 [facility] [address], [place] [address]- 7950 Jun, [facility] [address], [place] [address]- 5277 Jun, Unspecified episodic mood disorder F39 ; Anxiety disorder, unspecified F41.9 and Unspecified personality disorder F60.9 [facility] [id number] [address]- 9722 Jun, [facility] [address], [place] [address]- 5280 May, Unspecified episodic mood disorder F39 ; Anxiety disorder, unspecified F41.9 and Unspecified personality disorder F60.9 [facility] [address] [place] [address]- 3876 May, [facility] [id number] [address]- 0202 May, [facility] [address], [place] [address]- 7598 May, Edema, unspecified R60.9 [facility] [id number] [address]- 2682 Apr, [facility] [address], [place] [address]- 0736 Apr, Unspecified episodic mood disorder F39 ; Anxiety disorder, unspecified F41.9 and Unspecified personality disorder F60.9 [place] [id number] [place] [address] 73202- 2326 Apr, Anxiety F41.9 [facility] [id number] [place] [address] 53899- 7626 March, Unspecified episodic mood disorder F39 ; Anxiety disorder, unspecified F41.9 and Unspecified personality disorder F60.9 [place] [id number] [place] [address] 71798- 3825 March, Unspecified episodic mood disorder F39 ; Anxiety disorder, unspecified F41.9 and Unspecified personality disorder F60.9 [place] [id number] [place] [address] 59015- 7087 Feb, Anxiety F41.9 [place] [id number] [place] [address] 40211- 1295 Feb, Unspecified episodic mood disorder F39 ; Anxiety disorder, unspecified F41.9 and Unspecified personality disorder F60.9 [place] [id number] [place] [address] 83505- 7152 Jan, Unspecified episodic mood disorder F39 ; Anxiety disorder, unspecified F41.9 and Unspecified personality disorder F60.9 [place] [address] [place] [address] 10429- 3433 Jan, Unspecified episodic mood disorder F39 ; Anxiety disorder, unspecified F41.9 and Unspecified personality disorder F60.9 [place] [id number] [place] [address] 90661- 0931 Jan, Edema, unspecified R60.9 [facility] [id number] [place] [address] 70130- 7127 Dec, [place] [id number] [place] [address] 75974- 4226 Dec, [place] [address], [place] [address]- 0193 Dec, [place] [id number] [place] [address] 68556- 3013 Dec, Unspecified episodic mood disorder F39 ; Anxiety disorder, unspecified F41.9 and Unspecified personality disorder F60.9 [place] [id number] [place] [address] 26284- 0174 Nov, [place] [id number] [place] [address] 91009- 1762 Nov, Unspecified episodic mood disorder F39 ; Anxiety disorder, unspecified F41.9 and Unspecified personality disorder F60.9 [place] [address] [place] [address] 96015- 1484 Oct, Unspecified episodic mood disorder F39 ; Anxiety disorder, unspecified F41.9 and Unspecified personality disorder F60.9 [place] [address] [place] [address] 19903- 9886 Oct, Unspecified episodic mood disorder F39 ; Anxiety disorder, unspecified F41.9 and Unspecified personality disorder F60.9 [place] [address] [place] [address] 21827- 1084 Sep, Unspecified episodic mood disorder F39 ; Anxiety disorder, unspecified F41.9 and Unspecified personality disorder F60.9 [place] [id number] [place] [address] 94903- 3684 Sep, Encounter for immunization Z23 [place] [id number] [place] [address] 70396- 9031 10 Sep, 2015 Edema of left lower extremity R60.0 [place] [id number] [place] [address] 11240- 4162 Aug, Unspecified episodic mood disorder F39 ; Anxiety disorder, unspecified F41.9 and Unspecified personality disorder F60.9 [place] [address], [place] [address]- 4031 Aug, [facility] [id number] [place] [address] 30278- 8161 Aug, Edema of left lower extremity R60.0 [facility] [id number] [place] [address] 84057- 3331 Aug, [facility] [id number] [place] [address] 37155- 5826 Aug, Unspecified episodic mood disorder F39 ; Anxiety disorder, unspecified F41.9 and Unspecified personality disorder F60.9 [facility] [id number] [place] [address] 17441- 9427 Jul, Unspecified episodic mood disorder 296.90 ; Anxiety disorder , unspecified 300.00 and Unspecified personality disorder 301.9 [facility] [id number] [place] [address] 65116- 3072 Jul, Unspecified episodic mood disorder 296.90 ; Anxiety disorder , unspecified 300.00 and Unspecified personality disorder 301.9 [facility] [id number] [place] [address] 05027- 6341 Jul, [facility] [id number] [place] [address] 75933- 2269 Jun, Unspecified episodic mood disorder 296.90 ; Anxiety disorder , unspecified 300.00 and Unspecified personality disorder 301.9 [facility] [id number] [place] [address] 39190- 2712 May, Unspecified episodic mood disorder 296.90 ; Anxiety disorder , unspecified 300.00 and Unspecified personality disorder 301.9 [facility] [address] [place] [address] 10002- 0027 May, Anxiety disorder, unspecified 300.00 [facility] [address], [place] [address]- 0430 May, Anxiety disorder, unspecified 300.00 and Edema 782.3 [facility] [address], [place] [address]- 0896 May, Unspecified episodic mood disorder 296.90 ; Anxiety disorder , unspecified 300.00 and Unspecified personality disorder 301.9 [facility] [id number] [place] [address] 53541- 0858 Apr, [facility] [id number] [place] [address] 39373- 3873 Apr, Unspecified episodic mood disorder 296.90 ; Anxiety disorder , unspecified 300.00 and Personality disorder, unspecified 301.9 [facility] [id number] [place] [address] 64622- 1382 Apr, Unspecified episodic mood disorder 296.90 ; Anxiety disorder , unspecified 300.00 and Unspecified personality disorder 301.9 [facility] [id number] [place] [address] 18878- 6046 March, [facility] [id number] [place] [address] 76271- 3071 March, Unspecified episodic mood disorder 296.90 ; Anxiety disorder , unspecified 300.00 and Unspecified personality disorder 301.9 [facility] [address] [place] [address] 61278- 7975 March, Unspecified episodic mood disorder 296.90 ; Anxiety disorder 300.00 and Unspecified personality disorder 301.9 [facility] [address] [place] [address] 62835- 8128 March, [facility] [id number] [place] [address] 07735- 2029 March, [facility] [id number] [place] [address] 96528- 8594 Feb, [facility] [id number] [place] [address] 90800- 5153 Feb, [facility] [id number] [place] [address] 45770- 9296 Feb, [facility] [place] [facility] [address] [id number] [place] [address]- 1114 Jan, [facility] [place] [facility] [address] [id number] [place] [address]- 5566 Jan, [facility] [place] [facility] [address] [id number] [place] [address]- 7940 Jan, [facility] [place] [facility] [address] [id number] [place] [address]- 7735 Jan, [facility] [place] [facility] [address] [id number] [place] [address]- 2372 Jan, [facility] [place] [facility] [address] [facility] [id number] [place] [address]- 4479 Jan, [facility] [place] [facility] [address] [facility] [id number] [place] [id number] Jan, [facility] [place] [facility] [address] [id number], [place] [address]- 0649 Jan, [facility] [place] [facility] [address] [id number] [place] [address]- 9139 Jan, [facility] [place] [facility] [address] [facility] [id number] [place] [address]- 6392 Jan, [facility] [place] [facility] [address] [id number] [place] [address]- 8523 Jan, [facility] [place] [facility] [address] [id number], [place] [address]- 2483 Jan, [facility] [place] [facility] [address] [id number] [place] [address]- 7186 Jan, [facility] [place] [facility] [address] [facility] [id number] [place] [address]- 4149 Jan, [facility] [place] [facility] [address] [facility] [id number] [place] [address]- 9132 Jan, [facility] [place] [facility] [address] [id number] [place] [address]- 5835 Jan, [facility] [address] [id number] [place] [address]- 5680 Dec, 2014 [facility] [place] [facility] [address] [id number] [place] [address]- 2336 Dec, 2014 [facility] [place] [facility] [address] [id number] [place] [address]- 7340 Dec, 2014 [facility] [place] [facility] [address] [id number] [place] [address]- 8537 Dec, [facility] [place] [facility] [address] [id number] [place] [address]- 7059 Nov, [facility] [place] [facility] [address] [id number] [place] [address]- 5883 Nov, [facility] [place] [facility] [address] [id number] [place] [address] Nov, [facility] [address] [id number] [place] [address] Nov, [facility] [place] [facility] [address] [id number] [place] [address] Oct, [facility] [place] [facility] [address] [id number] [place] [address] Oct, [facility] [place] [facility] [address] [id number] [place] [address] Oct, [facility] [place] [facility] [address] [id number] [place] [address] Oct, [facility] [place] [facility] [address] [id number] [place] [id number] Oct, [facility] [place] [facility] [address] [id number] [place] [address] Oct, [facility] [place] [facility] [address] [id number] [place] [address] Oct, [facility] [place] [facility] [address] [id number] [place] [address] 6923 Oct, [facility] [place] [facility] [address] [id number] [place] [address]- 0747 Oct, [facility] [place] [facility] [address] [id number] [place] [address]- 4739 Oct, [facility] [place] [facility] [address] [id number] [place] [address]- 3133 Oct, [facility] [place] [facility] [address] [id number] [place] [address]- 1050 Oct, [facility] [place] [facility] [address] [id number] [place] [address]- 8094 Oct, [facility] [place] [facility] [address] [id number] [place] [address]- 8853 Oct, [facility] [place] [facility] [address] [id number] [place] [address]- 8872 Oct, [facility] [place] [facility] [address] [id number] [place] [address]- 9796 Oct, [facility] [place] [facility] [address] [id number] [place] [address]- 8693 Sep, [facility] [place] [facility] [address] [id number] [place] [address]- 2828 Sep, [facility] [place] [facility] [address] [id number] [place] [address]- 3160 Sep, [facility] [place] [facility] [address] [id number] [place] [address]- 1372 Sep, [facility] [place] [facility] [address] [id number] [place] [address]- 9707 Sep, [facility] [place] [facility] [address] [id number] [place] [address]- 8065 Sep, [facility] [place] [facility] [address] [id number] [place] [address]- 6377 Sep, [facility] [place] [facility] [address] [id number] [place] [address]- 0652 Sep, [facility] [place] [facility] [address] [id number] [place] [address]- 7107 Sep, [facility] [place] [facility] [address] [id number] [place] [address]- 5807 Sep, [facility] [place] [facility] [address] [id number] [place] [address]- 0870 30 Aug, 2014 [facility] [place] [facility] [address] [id number] [place] [address]- 7899 30 Aug, 2014 [facility] [place] [facility] [address] [id number] [place] [address]- 6308 Aug, [facility] [place] [facility] [address] [id number] [place] [address]- 7341 14 Aug, 2014 [facility] [place] [facility] [address] [id number] [place] [address]- 4021 Aug, [facility] [place] [facility] [address] [id number] [place] [address]- 0888 Aug, [facility] [place] [facility] [address] [facility] [id number] [place] [address]- 0454 Aug, [facility] [place] [facility] [address] [id number] [place] [address]- 2249 Aug, [facility] [place] [facility] [address] [id number] [place] [address]- 5062 29 Jul, 2014 [facility] [place] [facility] [address] [id number] [place] [address]- 5615 29 Jul, 2014 [facility] [place] [facility] [address] [id number] [place] [address]- 6739 05 Jul, 2014 [facility] [place] [facility] [address] [facility] [id number] [place] [address]- 4639 05 Sep, 2013 [facility] [place] [facility] [address] [id number] [place] [address]- 6665 Jul, [facility] [place] [facility] [address] [id number] [place] [address]- 8019 Jul, [facility] [place] [facility] [address] [id number] [place] [address]- 0918 Jun, [facility] [place] [facility] [address] [id number] [place] [address]- 4787 Jun, [facility] [place] [facility] [address] [id number] [place] [address]- 1583 May, [facility] [place] [facility] [address] [id number] [place] [address]- 5910 May, [facility] [place] [facility] [address] [id number] [place] [address]- 1669 May, [facility] [place] [facility] [address] [id number] [place] [address]- 6944 May, [facility] [place] [facility] [address] [id number] [place] [address]- 1066 May, [facility] [place] [facility] [address] [id number] [place] [address]- 9619 May, [facility] [place] [facility] [address] [id number] [place] [address]- 7308 May, [facility] [place] [facility] [address] [id number] [place] [address]- 1007 May, [facility] [place] [facility] [address] [id number] [place] [address]- 8653 Apr, [facility] [place] [facility] [address] [id number] [place] [address]- 6574 Apr, [facility] [place] [facility] [address] [id number] [place] [address]- 6254 March, [facility] [place] [facility] [address] [id number] [place] [address]- 1654 March, [facility] [place] [facility] [address] [id number] [place] [address]- 4967 Feb, [facility] [place] [facility] [address] [id number] [place] [address]- 4886 Feb, [facility] [place] [facility] [address] [id number] [place] [address]- 8891 Feb, [facility] [place] [facility] [address] [id number] [place] [address]- 6366 Feb, [facility] [place] [facility] [address] [id number] [place] [address]- 7435 Feb, [facility] [place] [facility] [address] [id number] [place] [address]- 2741 Feb, [facility] [place] [facility] [address] [id number] [place] [address]- 4909 Feb, [facility] [place] [facility] [address] [id number] [place] [address]- 6652 Feb, [facility] [place] [facility] [address] [id number] [place] [address]- 1405 Feb, [facility] [place] [facility] [address] [id number] [place] [address]- 8765 Feb, [facility] [place] [facility] [address] [id number] [place] [address]- 3938 Jan, [facility] [place] [facility] [address] [id number], [place] [address]- 3691 Jan, [facility] [place] [facility] [address] [id number] [place] [address]- 7313 Jan, [facility] [place] [facility] [address] [id number] [place] [address]- 6579 Jan, [facility] [place] [facility] [address] [id number] [place] [address]- 2697 Jan, [facility] [place] [facility] [address] [id number] [place] [address]- 5893 Dec, [facility] [place] [facility] [address] [id number] [place] [address]- 4726 Dec, [facility] [place] [facility] [address] [id number] [place] [address]- 1836 Dec, [facility] [place] [facility] [address] [id number] [place] [address]- 5266 Dec, [facility] [place] [facility] [address] [id number] [place] [address]- 9303 Dec, [facility] [place] [facility] [address] [id number] [place] [address]- 2281 Dec, [facility] [place] [facility] [address] [id number] [place] [address]- 3721 Nov, [facility] [place] [facility] [address] [id number] [place] [address]- 9333 Nov, [facility] [place] [facility] [address] [id number] [place] [address]- 8374 Nov, [facility] [place] [facility] [address] [id number] [place] [address]- 7600 Nov, [facility] [place] [facility] [address] [id number] [place] [address]- 4083 Nov, [facility] [place] [facility] [address] [id number] [place] [address]- 2113 Nov, [facility] [place] [facility] [address] [id number] [place] [address]- 3994 Nov, [facility] [place] [facility] [address] [id number] [place] [address]- 9180 Nov, [facility] [place] [facility] [address] [id number] [place] [address]- 2546 Oct, [facility] [place] [facility] [address] [id number] [place] [address]- 2686 Oct, [facility] [place] [facility] [address] [id number] [place] [address] Oct, [facility] [place] [facility] [address] [id number] [place] [address]- 3364 Oct, [facility] [place] [facility] [address] [facility] [id number] [place] [address]- 6895 Oct, [facility] [place] [facility] [address] [id number] [place] [address]- 6986 Oct, [facility] [place] [facility] [address] [id number] [place] [address]- 0584 Oct, [facility] [place] [facility] [address] [id number] [place] [address]- 4060 Oct, [facility] [place] [facility] [address] [id number] [place] [address]- 8722 Sep, [facility] [place] [facility] [address] [id number], [place] [address]- 8826 Sep, [facility] [place] [facility] [address] [id number] [place] [address]- 0086 Sep, [facility] [place] [facility] [address] [facility] [id number], [place] [address]- 1853 14 Sep, 2013 [facility] [place] [facility] [address] [id number], [place] [address]- 7655 07 Sep, 2013 [facility] [place] [facility] [address] [id number], [place] [address]- 1465 07 Sep, 2013 [facility] [place] [facility] [address] [id number], [place] [address]- 8034 Sep, [facility] [place] [facility] [address] [id number], [place] [address]- 1468 04 Sep, 2013 [facility] [place] [facility] [address] [facility] [id number], [place] [address]- 8024 10 Aug, 2013 [facility] [place] [facility] [address] [id number] [place] [address]- 7890 Aug, [facility] [address] [id number] [place] [address]- 0560 Aug, [facility] [place] [facility] [address] [id number] [place] [address]- 7637 Jul, [facility] [address] [id number] [place] [address]- 0163 Jun, [facility] [place] [facility] [address] [id number] [place] [address]- 0349 Jun, [facility] [address] [id number] [place] [address]- 9761 Jun, [facility] [place] [facility] [address] [id number] [place] [address]- 2193 Jun, [facility] [address] [id number] [place] [address]- 6963 Jun, [facility] [place] [facility] [address] [id number] [place] [address]- 5663 May, [facility] [place] [facility] [address] [id number] [place] [address]- 1600 May, [facility] [place] [facility] [address] [id number] [place] [address]- 1148 Apr, [facility] [place] [facility] [address] [id number] [place] [address]- 3650 Apr, [facility] [place] [facility] [address] [id number] [place] [address]- 7807 March, [facility] [place] [facility] [address] [id number] [place] [address]- 2285 March, [facility] [place] [facility] [address] [id number] [place] [address]- 0366 March, [facility] [place] [facility] [address] [id number] [place] [address]- 0614 March, [facility] [place] [facility] [address] [id number] [place] [address]- 7199 March, [facility] [address] [id number] [place] [address]- 5889 Feb, [facility] [place] [facility] [address] [id number] [place] [address]- 0135 Feb, [facility] [place] [facility] [address] [id number] [place] [address]- 0269 Feb, [facility] [address] [id number] [place] [address]- 4307 Jan, [facility] [place] [facility] [address] [id number] [place] [address]- 1018 Dec, [facility] [address] [id number] [place] [address]- 9984 Dec, [facility] [address] [id number] [place] [address]- 9729 Dec, [facility] [address] [id number] [place] [address]- 7798 Dec, [facility] [address] [id number] [place] [address]- 7487 Nov, [facility] [address] [id number] [place] [address]- 0647 Nov, [facility] [place] [facility] [address] [id number], [place] [address]- 2467 Nov, [facility] [place] [facility] [address] [id number] [place] [address]- 4545 Nov, [facility] [place] [facility] [address] [id number] [place] [address]- 7086 Oct, [facility] [place] [facility] [address] [id number] [place] [address]- 4972 Oct, [facility] [place] [facility] [address] [id number], [place] [address]- 5419 Oct, [facility] [place] [facility] [address] [id number] [place] [address]- 2487 Oct, [facility] [place] [facility] [address] [id number] [place] [address]- 0520 Sep, [facility] [place] [facility] [address] [facility] [id number] [place] [address]- 8766 14 Sep, 2012 [facility] [place] [facility] [address] [id number] [place] [address]- 1819 Sep, [facility] [place] [facility] [address] [facility] [id number] [place] [address], [place] [address]- 7753 Sep, [facility] [place] [facility] [address] [facility] [id number] [place] [address]- 8914 Sep, [facility] [place] [facility] [id number] [place] [address]- 2840 Sep, [facility] [place] [facility] [address] [facility] [id number] [place] [address]- 6356 Aug, [facility] [place] [facility] [address] [id number] [place] [address]- 1946 Aug, [facility] [place] [facility] [address] [id number] [place] [address]- 9968 Aug, [facility] [place] [facility] [address] [facility] [id number], [place] [address]- 1527 Jul, [facility] [place] [facility] [address] [facility] [id number], [place] [address]- 2191 Jul, [facility] [place] [facility] [address] [facility] [id number] [place] [address]- 1324 Jun, [facility] [place] [facility] [address] [facility] [id number], [place] [address]- 6220 May, [facility] [place] [facility] [address] [id number], [place] [address]- 5357 May, [facility] [place] [facility] [address] [id number] [place] [address]- 4401 Apr, [facility] [place] [facility] [address] [id number] [place] [address]- 1524 Apr, [facility] [place] [facility] [address] [id number] [place] [address]- 8964 March, [facility] [place] [facility] [address] [id number] [place] [address]- 9184 March, [facility] [place] [facility] [address] [id number] [place] [address]- 1171 Feb, [facility] [place] [facility] [address] [id number] [place] [address]- 5743 16 Feb, 2012 [facility] [place] [facility] [address] [id number] [place] [address]- 5395 Feb, [facility] [place] [facility] [address] [id number] [place] [address]- 5647 Feb, [facility] [place] [facility] [address] [id number] [place] [address]- 0224 Jan, [facility] [place] [facility] [address] [id number] [place] [address]- 8744 Jan, [facility] [place] [facility] [address] [facility] [id number] [place] [address]- 6847 Dec, [facility] [place] [facility] [address] [id number] [place] [address]- 1595 Dec, [facility] [place] [facility] [address] [id number] [place] [address]- 7911 Dec, [facility] [place] [facility] [address] [id number] [place] [address]- 9400 23 Dec, 2011 [facility] [place] [facility] [address] [id number] [place] [address]- 5672 20 Dec, 2011 [facility] [place] [facility] [address] [id number] [place] [address]- 2967 15 Dec, [address] [facility] [address] [id number] [place] [address]- 6616 10 Dec, 2011 [facility] [place] [facility] [address] [id number] [place] [address]- 7456 09 Dec, 2011 [facility] [place] [facility] [address] [id number] [place] [address]- 2696 08 Dec, 2011 [facility] [place] [facility] [address] [id number] [place] [address]- 5430 07 Dec, 2011 [facility] [place] [facility] [address] [id number] [place] [address]- 5910 Dec, [facility] [place] [facility] [address] [id number] [place] [address]- 7832 Dec, [facility] [address] [id number] [place] [address]- 9346 Dec, [facility] [address] [id number] [place] [address]- 1848 Nov, [facility] [place] [facility] [address] [id number] [place] [address]- 4236 Nov, [facility] [address] [id number] [place] [address]- 9906 Nov, [facility] [place] [facility] [address] [id number] [place] [address]- 8590 Nov, [facility] [place] [facility] [address] [id number] [place] [address]- 7532 Nov, [facility] [place] [facility] [address] [id number] [place] [address]- 8859 Nov, [facility] [place] [facility] [address] [id number] [place] [address]- 0602 Oct, [facility] [place] [facility] [address] [id number] [place] [address]- 1589 Oct, [facility] [place] [facility] [address] [id number] [place] [address]- 5166 Sep, [facility] [address] [id number] [place] [address]- 9999 29 Sep, 2011 [facility] [place] [facility] [address] [id number] [place] [address]- 6597 Sep, [facility] [place] [facility] [address] [id number] [place] [address]- 8446 Sep, [facility] [address] [id number] [place] [address]- 1831 Sep, [facility] [place] [facility] [address] [id number] [place] [address]- 6606 March, [facility] [address] [id number] [place] [address]- 9216 Oct, [facility] [address] [id number] [place] [address]- 2680 Oct, [facility] [address] [id number] [place] [address]- 8767 Oct, [facility] [place] [facility] [address] [id number] [place] [address]- 7153 24 Sep, 2010 [facility] [place] [facility] [address] [id number] [place] [address]- 2245 17 Sep, 2010 [facility] [place] [facility] [address] [id number], [place] [address]- 0423 17 Sep, 2010 [facility] [place] [facility] [address] [id number] [place] [address]- 3337 16 Sep, 2010 [facility] [place] [facility] [address] [id number] [place] [address]- 9174 Aug, [facility] [place] [facility] [address] [id number] [place] 4037 Oct, [facility] [place] [facility] [address] [id number] [place] [address]- 2546 Oct, [facility] [address] [facility] [id number] [place] [address] May, IMMUNIZATIONS No Known Immunizations SOCIAL HISTORY Never Assessed REASON FOR VISIT f/u PLAN OF CARE Activity Details Follow Up Next available Reason: F/U VITAL SIGNS MEDICATIONS Unknown Medications RESULTS No Results PROCEDURES Procedure Date Ordered Result Body Site Psychotherapy, patient &/family, 45 minutes, established patient March 27, 2018 INSTRUCTIONS MEDICATIONS ADMINISTERED No Known Medications MEDICAL (GENERAL) HISTORY Type Description Date Medical History hypertension Medical History panic attacks Surgical History cholecystectomy 2008 Hospitalization History surgery
--- OUTSIDE RECORDS SUMMARY | 2018-12-11 10:20 | XMS REPORT ---
Author Author LEIDA ANDINO Organization [facility] Address [address] [place] [address] Care Team Providers Care Title Curator Name Role Phone LEIDA ANDINO Unavailable PROBLEMS Type Condition ICD9-CM Code BNG15-AF Code Onset Dates Condition Status SNOMED Code Problem Stress incontinence of urine N39.3 Active 18599826 Problem Anxiety F41.9 Active 66210530 Problem Anxiety disorder, unspecified F41.9 Active 316953707 Problem Unspecified episodic mood disorder F39 Active 754631577 Problem Unspecified personality disorder F60.9 Active [id number] ALLERGIES No Information ENCOUNTERS Encounter Location Date Diagnosis [place] [id number] [place] [address] 44583- 5192 Jun, [facility] [id number] [place] [address] 54177- 7579 May, Unspecified episodic mood disorder F39 ; Anxiety disorder, unspecified F41.9 and Unspecified personality disorder F60.9 [place] [id number] [place] [address] 51354- 6265 May, Anxiety disorder, unspecified F41.9 [place] [id number] [place] [address] 59401- 6706 Apr, Anxiety disorder, unspecified F41.9 [place] [id number] [place] [address] 73417- 5872 Apr, Unspecified episodic mood disorder F39 ; Anxiety disorder, unspecified F41.9 and Unspecified personality disorder F60.9 [place] [id number] [place] [address] 19918- 7508 March, Anxiety disorder, unspecified F41.9 [place] [id number] [place] [address] 03457- 7774 March, Unspecified episodic mood disorder F39 ; Anxiety disorder, unspecified F41.9 and Unspecified personality disorder F60.9 [facility] [id number] [place] [address] 34777- 8412 March, Anxiety disorder, unspecified F41.9 [facility] [id number] [place] [address] 16557- 1189 Feb, Unspecified episodic mood disorder F39 ; Anxiety disorder, unspecified F41.9 and Unspecified personality disorder F60.9 [facility] [id number] [place] [address] 67560- 2911 Feb, Unspecified episodic mood disorder F39 ; Anxiety disorder, unspecified F41.9 and Unspecified personality disorder F60.9 [place] [id number] [place] [address] 23138- 0103 Feb, Anxiety disorder, unspecified F41.9 [facility] [id number] [place] [address] 46383- 0945 Jan, Unspecified episodic mood disorder F39 ; Anxiety disorder, unspecified F41.9 and Unspecified personality disorder F60.9 [place] [id number] [place] [address] 13767- 2093 Jan, Anxiety F41.9 [place] [id number] [place] [address] 84737- 4219 Jan, Anxiety disorder, unspecified F41.9 [facility] [id number] [place] [address] 09442- 0921 Dec, Unspecified episodic mood disorder F39 ; Anxiety disorder, unspecified F41.9 and Unspecified personality disorder F60.9 [facility] [id number] [place] [address] 27599- 0543 Dec, Anxiety F41.9 [facility] [id number] [place] [address] 47157- 0573 Dec, Anxiety disorder, unspecified F41.9 [facility] [address], [place] [address] 5575 Dec, Unspecified episodic mood disorder F39 ; Anxiety disorder, unspecified F41.9 and Unspecified personality disorder F60.9 [facility] [address] [address] 9412 Nov, [facility] [id number] [place] [address] 43334- 0609 Nov, [facility] [id number] [place] [address] 79792- 9802 Nov, Unspecified episodic mood disorder F39 ; Anxiety disorder, unspecified F41.9 and Unspecified personality disorder F60.9 [place] [address], [place] [address]- 4932 Nov, Anxiety disorder, unspecified F41.9 [facility] [id number] [place] [address] 37083- 3373 Oct, Unspecified episodic mood disorder F39 ; Anxiety disorder, unspecified F41.9 and Unspecified personality disorder F60.9 [place] [id number] [place] [address] 49311- 9473 Oct, Vaginal yeast infection B37.3 [facility] [address] [address] 0629 Oct, [facility] [id number] [place] [address] 00851- 0254 Oct, Anxiety disorder, unspecified F41.9 [facility] [address] [place] [address] 63732- 7200 Oct, Routine gynecological examination Z01.419 ; Screening for breast cancer Z12.31 and Vaginal yeast infection B37.3 [facility] [address] [address]- 7312 Sep, Unspecified episodic mood disorder F39 ; Anxiety disorder, unspecified F41.9 and Unspecified personality disorder F60.9 [facility] [id number] [place] [address] 45099- 9896 Sep, [place] [id number] [place] [address] 36211- 0908 Sep, Anxiety disorder, unspecified F41.9 [place] [id number] [place] [address] 49562- 0958 Sep, Bronchitis J40 and Stress incontinence of urine N39.3 [place] [address] 92383- 1227 Sep, Stress incontinence of urine N39.3 ; Bronchitis J40 and Anxiety F41.9 [place] [id number] [place] [address] 47752- 1813 Sep, [place] [address] 12413- 6585 Sep, Unspecified episodic mood disorder F39 ; Anxiety disorder, unspecified F41.9 and Unspecified personality disorder F60.9 [place] [id number] [place] [address] 98086- 3565 Aug, Anxiety F41.9 ; Stress incontinence of urine N39.3 and Encounter for immunization Z23 [place] [id number] [place] [address] 18604- 7125 Aug, Anxiety disorder, unspecified F41.9 [place] [id number] [place] [address] 30463- 0091 Jul, Unspecified episodic mood disorder F39 ; Anxiety disorder, unspecified F41.9 and Unspecified personality disorder F60.9 [place] [id number] [place] [address] 21456- 2354 Jul, [facility] [id number] [place] [address] 37306- 5928 Jul, Unspecified episodic mood disorder F39 ; Anxiety disorder, unspecified F41.9 and Unspecified personality disorder F60.9 [facility] [address], [place] [address]- 7575 Jul, Anxiety disorder, unspecified F41.9 [facility] [address], [place] [address]- 8894 Jun, Unspecified episodic mood disorder F39 ; Anxiety disorder, unspecified F41.9 and Unspecified personality disorder F60.9 [facility] [id number] [place] [address] 42287- 5438 Jun, Anxiety disorder, unspecified F41.9 [facility] [id number] [place] [address] 36312- 5055 Jun, Unspecified episodic mood disorder F39 ; Anxiety disorder, unspecified F41.9 and Unspecified personality disorder F60.9 [facility] [id number] [place] [address] 76607- 3133 Jun, [facility] [id number] [place] [address] 63992- 3607 May, Anxiety disorder, unspecified F41.9 [facility] [id number] [place] [address] 12527- 0161 May, Unspecified episodic mood disorder F39 ; Anxiety disorder, unspecified F41.9 and Unspecified personality disorder F60.9 [facility] [address] [place] [address] 58998- 3349 Apr, Anxiety disorder, unspecified F41.9 [facility] [address] [place] [address] 87874- 0241 March, Unspecified episodic mood disorder F39 ; Anxiety disorder, unspecified F41.9 and Unspecified personality disorder F60.9 [facility] [address] [place] [address] 53828- 3302 March, Bronchitis J40 [facility] [id number] [place] [address] 45533- 2493 March, Unspecified episodic mood disorder F39 ; Anxiety disorder, unspecified F41.9 and Unspecified personality disorder F60.9 [facility] [id number] [place] [address] 01499- 4608 Feb, [facility] [address] [place] [address] 95045- 3151 Feb, Unspecified episodic mood disorder F39 ; Anxiety disorder, unspecified F41.9 and Unspecified personality disorder F60.9 [facility] [address] [place] [address] 60487- 3146 Feb, Bronchitis J40 [facility] [id number] [place] [address] 48465- 7354 Feb, Unspecified episodic mood disorder F39 ; Anxiety disorder, unspecified F41.9 and Unspecified personality disorder F60.9 [facility] [id number] [place] [address] 27188- 1098 Jan, Unspecified episodic mood disorder F39 ; Anxiety disorder, unspecified F41.9 and Unspecified personality disorder F60.9 [facility] [address] [place] [address] 74820- 6781 Jan, Bronchitis J40 [facility] [id number] [place] [address] 42368- 1727 Jan, Unspecified episodic mood disorder F39 ; Anxiety disorder, unspecified F41.9 and Unspecified personality disorder F60.9 [facility] [address] [place] [address] 84823- 6469 Dec, Anxiety F41.9 [facility] [address] [place] [address] 43932- 3538 Dec, Unspecified episodic mood disorder F39 ; Anxiety disorder, unspecified F41.9 and Unspecified personality disorder F60.9 [facility] [id number] [id number] Dec, [facility] [address], [place] [address]- 0365 Dec, Unspecified episodic mood disorder F39 ; Anxiety disorder, unspecified F41.9 and Unspecified personality disorder F60.9 [facility] [address], [place] [address]- 5162 Nov, [facility] [address], [place] [address]- 9270 Oct, Unspecified episodic mood disorder F39 ; Anxiety disorder, unspecified F41.9 and Unspecified personality disorder F60.9 [facility] [address], [place] [address]- 3653 Oct, [facility] [address], [place] [address] Oct, Acute upper respiratory infection, unspecified J06.9 ; Other viral agents as the cause of diseases classified elsewhere B97.89 and Cough R05 [facility] [address], [place] [address]- 8930 Aug, Unspecified episodic mood disorder F39 ; Anxiety disorder, unspecified F41.9 and Unspecified personality disorder F60.9 [facility] [address], [place] [address]- 1571 Aug, [facility] [address], [place] [address]- 0633 Aug, [facility] [address], [place] [address]- 3994 Aug, [facility] [address], [place] [address]- 1757 Aug, Visit for TB skin test Z11.1 [facility] [address], [place] [address]- 1744 Jul, [facility] [address], [place] [address]- 6647 Jul, [facility] [address] [facility] [id number] [address]- 3745 Jul, [facility] [address] [facility] [id number] [place] [address]- 5966 Jul, [facility] [address] [facility] [id number], [place] [address]- 2566 Jul, [facility] [address] [place] [address] 23838- 7540 Jul, Unspecified episodic mood disorder F39 ; Anxiety disorder, unspecified F41.9 and Unspecified personality disorder F60.9 [facility] [address] [facility] [id number], [place] [address]- 0318 Jun, [facility] [address] [facility] [id number], [place] [address]- 6729 Jun, Unspecified episodic mood disorder F39 ; Anxiety disorder, unspecified F41.9 and Unspecified personality disorder F60.9 [facility] [address] [facility] [id number], [place] [address]- 0325 Jun, [facility] [id number] [address]- 5825 May, Unspecified episodic mood disorder F39 ; Anxiety disorder, unspecified F41.9 and Unspecified personality disorder F60.9 [facility] [address], [place] [address]- 2308 May, [facility] [id number], [place] [address]- 6142 May, [facility] [address] [facility] [id number], [place] [address]- 5435 May, Edema, unspecified R60.9 [facility] [address] [facility] [id number], [place] [address]- 9830 Apr, [facility] [address], [place] [address]- 9825 Apr, Unspecified episodic mood disorder F39 ; Anxiety disorder, unspecified F41.9 and Unspecified personality disorder F60.9 [place] [id number] [place] [address] 77379- 7032 Apr, Anxiety F41.9 [facility] [id number] [place] [address] 37464- 1228 March, Unspecified episodic mood disorder F39 ; Anxiety disorder, unspecified F41.9 and Unspecified personality disorder F60.9 [facility] [id number] [place] [address] 88014- 0114 March, Unspecified episodic mood disorder F39 ; Anxiety disorder, unspecified F41.9 and Unspecified personality disorder F60.9 [place] [id number] [place] [address] 68766- 5971 Feb, Anxiety F41.9 [place] [id number] [place] [address] 74365- 2420 Feb, Unspecified episodic mood disorder F39 ; Anxiety disorder, unspecified F41.9 and Unspecified personality disorder F60.9 [place] [id number] [place] [address] 65086- 1811 Jan, Unspecified episodic mood disorder F39 ; Anxiety disorder, unspecified F41.9 and Unspecified personality disorder F60.9 [place] [address] [place] [address] 18379- 4490 Jan, Unspecified episodic mood disorder F39 ; Anxiety disorder, unspecified F41.9 and Unspecified personality disorder F60.9 [place] [address] [place] [address] 82517- 4108 Jan, Edema, unspecified R60.9 [facility] [id number] [place] [address] 66568- 5041 Dec, [place] [id number] [place] [address] 86431- 4661 Dec, [place] [address], [place] [address]- 5739 Dec, [place] [id number] [place] [address] 93515- 7742 Dec, Unspecified episodic mood disorder F39 ; Anxiety disorder, unspecified F41.9 and Unspecified personality disorder F60.9 [place] [id number] [place] [address] 15085- 4032 Nov, [place] [id number] [place] [address] 55239- 9633 Nov, Unspecified episodic mood disorder F39 ; Anxiety disorder, unspecified F41.9 and Unspecified personality disorder F60.9 [place] [address] [place] [address] 27589- 5330 Oct, Unspecified episodic mood disorder F39 ; Anxiety disorder, unspecified F41.9 and Unspecified personality disorder F60.9 [place] [id number] [place] [address] 59585- 5722 Oct, Unspecified episodic mood disorder F39 ; Anxiety disorder, unspecified F41.9 and Unspecified personality disorder F60.9 [place] [address] [place] [address] 30389- 3719 Sep, Unspecified episodic mood disorder F39 ; Anxiety disorder, unspecified F41.9 and Unspecified personality disorder F60.9 [place] [address] [place] [address] 21053- 1463 Sep, Encounter for immunization Z23 [place] [id number] [place] [address] 05354- 6257 10 Sep, 2015 Edema of left lower extremity R60.0 [place] [address] [place] [address] 20034- 9908 Aug, Unspecified episodic mood disorder F39 ; Anxiety disorder, unspecified F41.9 and Unspecified personality disorder F60.9 [place] [id number] [address]- 6152 Aug, [facility] [id number] [place] [address] 43705- 8392 Aug, Edema of left lower extremity R60.0 [facility] [id number] [place] [address] 53090- 5966 Aug, [facility] [id number] [place] [address] 48065- 3530 Aug, Unspecified episodic mood disorder F39 ; Anxiety disorder, unspecified F41.9 and Unspecified personality disorder F60.9 [facility] [id number] [place] [address] 17613- 4666 Jul, Unspecified episodic mood disorder 296.90 ; Anxiety disorder , unspecified 300.00 and Unspecified personality disorder 301.9 [facility] [id number] [place] [address] 35768- 0440 Jul, Unspecified episodic mood disorder 296.90 ; Anxiety disorder , unspecified 300.00 and Unspecified personality disorder 301.9 [facility] [id number] [place] [address] 79455- 2340 Jul, [facility] [id number] [place] [address] 82241- 8522 Jun, Unspecified episodic mood disorder 296.90 ; Anxiety disorder , unspecified 300.00 and Unspecified personality disorder 301.9 [facility] [id number] [place] [address] 05933- 8427 May, Unspecified episodic mood disorder 296.90 ; Anxiety disorder , unspecified 300.00 and Unspecified personality disorder 301.9 [facility] [id number] [place] [address] 91061- 3395 May, Anxiety disorder, unspecified 300.00 [facility] [address] [place] [address] 42452- 8175 May, Anxiety disorder, unspecified 300.00 and Edema 782.3 [facility] [address], [place] [address]- 5078 May, Unspecified episodic mood disorder 296.90 ; Anxiety disorder , unspecified 300.00 and Unspecified personality disorder 301.9 [facility] [address], [place] [address]- 4185 Apr, [facility] [id number] [place] [address] 32931- 1615 Apr, Unspecified episodic mood disorder 296.90 ; Anxiety disorder , unspecified 300.00 and Personality disorder, unspecified 301.9 [facility] [address] [place] [address] 26818- 7832 Apr, Unspecified episodic mood disorder 296.90 ; Anxiety disorder , unspecified 300.00 and Unspecified personality disorder 301.9 [facility] [address], [place] [address]- 3472 March, [facility] [address] [place] [address] 12711- 8104 March, Unspecified episodic mood disorder 296.90 ; Anxiety disorder , unspecified 300.00 and Unspecified personality disorder 301.9 [facility] [address], [place] [address]- 9455 March, Unspecified episodic mood disorder 296.90 ; Anxiety disorder 300.00 and Unspecified personality disorder 301.9 [facility] [address], [place] [address]- 0031 March, [facility] [address], [place] [address]- 5982 March, [facility] [address], [place] [address]- 1085 Feb, [facility] [address], [place] [address]- 6394 Feb, [facility] [address], [place] [address]- 9006 Feb, [facility] [place] [facility] [address] [id number] [place] [address]- 0469 Jan, [facility] [place] [facility] [address] [id number] [place] [address]- 7012 Jan, [facility] [place] [facility] [address] [id number] [place] [address]- 2269 Jan, [facility] [place] [facility] [address] [id number] [place] [address]- 2625 Jan, [facility] [place] [facility] [address] [id number] [place] [address]- 9271 Jan, [facility] [place] [facility] [address] [id number] [place] [address]- 4453 Jan, [facility] [place] [facility] [address] [facility] [id number] [place] [id number] Jan, [facility] [place] [facility] [address] [id number], [place] [address]- 1348 Jan, [facility] [place] [facility] [address] [facility] [id number] [place] [address]- 8617 Jan, [facility] [place] [facility] [address] [facility] [id number], [place] [address]- 2342 Jan, [facility] [place] [facility] [address] [id number], [place] [address]- 3900 Jan, [facility] [place] [facility] [address] [id number], [place] [address]- 5856 Jan, [facility] [place] [facility] [address] [id number], [place] [address]- 2807 Jan, [facility] [place] [facility] [address] [id number], [place] [address]- 8432 Jan, [facility] [place] [facility] [address] [facility] [id number], [place] [address]- 5588 Jan, [facility] [place] [facility] [address] [id number], [place] [address]- 2848 Jan, [facility] [place] [facility] [address] [id number] [place] [address]- 0768 Dec, 2014 [facility] [place] [facility] [address] [id number] [place] [address]- 0516 Dec, 2014 [facility] [place] [facility] [address] [id number] [place] [address]- 4815 Dec, 2014 [facility] [place] [facility] [address] [id number] [place] [address] Dec, [facility] [place] [facility] [address] [id number] [place] [address] Nov, [facility] [place] [facility] [address] [id number] [place] [address] Nov, [facility] [place] [facility] [address] [facility] [id number] [place] [address] Nov, [facility] [place] [facility] [address] [facility] [id number] [place] [address] Nov, [facility] [place] [facility] [address] [facility] [id number] [place] [address] Oct, [facility] [place] [facility] [address] [facility] [id number] [place] [address] Oct, [facility] [place] [facility] [address] [id number] [place] [address] Oct, [facility] [place] [facility] [address] [id number] [place] [address] Oct, [facility] [place] [facility] [address] [id number] [place] [address] Oct, [facility] [place] [facility] [address] [facility] [id number] [place] [address] Oct, [facility] [place] [facility] [address] [id number] [place] [address] 54[address] Oct, [facility] [place] [facility] [address] [id number] [place] [address] 0132 Oct, [facility] [place] [facility] [address] [id number] [place] [address] 9042 Oct, [facility] [place] [facility] [address] [id number] [place] [address]- 6422 Oct, [facility] [place] [facility] [address] [id number] [place] [address]- 4160 Oct, [facility] [place] [facility] [address] [id number] [place] [address] 2878 Oct, [facility] [place] [facility] [address] [id number] [place] [address] 2364 Oct, [facility] [place] [facility] [address] [id number] [place] [address]- 6020 Oct, [facility] [place] [facility] [address] [id number] [place] [address]- 4317 Oct, [facility] [place] [facility] [address] [id number] [place] [address] 3111 Oct, [facility] [place] [facility] [address] [id number] [place] [address]- 5438 Sep, [facility] [place] [facility] [address] [id number] [place] [address]- 0043 Sep, [facility] [place] [facility] [address] [id number] [place] [address]- 9703 Sep, [facility] [place] [facility] [address] [id number] [place] [address]- 4666 Sep, [facility] [place] [facility] [address] [id number] [place] [address]- 4357 Sep, [facility] [place] [facility] [address] [id number] [place] [address]- 0177 Sep, [facility] [place] [facility] [address] [id number] [place] [address]- 7080 Sep, [facility] [place] [facility] [address] [id number] [place] [address]- 9699 Sep, [facility] [place] [facility] [address] [id number] [place] [address]- 3183 Sep, [facility] [place] [facility] [address] [id number] [place] [address]- 2293 Sep, [facility] [place] [facility] [address] [id number] [place] [address]- 5172 Aug, [facility] [place] [facility] [address] [id number] [place] [address]- 8609 Aug, [facility] [place] [facility] [address] [id number] [place] [address]- 7880 Aug, [facility] [place] [facility] [address] [id number] [place] [address]- 9439 Aug, [facility] [place] [facility] [address] [id number] [place] [address]- 9551 Aug, [facility] [place] [facility] [address] [id number] [place] [address]- 7327 Aug, [facility] [place] [facility] [address] [id number] [place] [address]- 9844 Aug, [facility] [place] [facility] [address] [id number] [place] [address]- 5331 Aug, [facility] [place] [facility] [address] [id number] [place] [address]- 0093 29 Jul, 2014 [facility] [place] [facility] [address] [id number] [place] [address]- 0943 29 Jul, 2014 [facility] [place] [facility] [address] [id number] [place] [address]- 3604 Jul, [facility] [place] [facility] [address] [id number] [place] [address]- 2163 05 Jul, 2014 [facility] [place] [facility] [address] [id number] [place] [address]- 4520 Jul, [facility] [place] [facility] [address] [id number] [place] [address]- 6957 Jul, [facility] [place] [facility] [address] [id number] [place] [address]- 7681 Jun, [facility] [place] [facility] [address] [id number] [place] [address]- 4116 Jun, [facility] [place] [facility] [address] [id number] [place] [address]- 6512 May, [facility] [place] [facility] [address] [id number] [place] [address]- 7416 May, [facility] [place] [facility] [address] [id number] [place] [address]- 5134 May, [facility] [place] [facility] [address] [id number] [place] [address]- 5494 May, [facility] [place] [facility] [address] [id number] [place] [address]- 1357 May, [facility] [place] [facility] [address] [id number] [place] [address]- 4208 May, [facility] [place] [facility] [address] [id number] [place] [address]- 2476 May, [facility] [place] [facility] [address] [id number] [place] [address]- 0278 May, [facility] [place] [facility] [address] [id number] [place] [address]- 4972 Apr, [facility] [place] [facility] [address] [id number] [place] [address]- 9537 Apr, [facility] [place] [facility] [address] [id number] [place] [address]- 1156 March, [facility] [place] [facility] [address] [id number] [place] [address] March, [facility] [place] [facility] [address] [id number] [place] [address]- 9369 Feb, [facility] [place] [facility] [address] [id number] [place] [address]- 0870 Feb, [facility] [place] [facility] [address] [id number] [place] [address]- 5688 Feb, [facility] [place] [facility] [address] [id number] [place] [address]- 9672 Feb, [facility] [place] [facility] [address] [id number] [place] [address]- 3140 Feb, [facility] [place] [facility] [address] [id number] [place] [address]- 0057 Feb, [facility] [place] [facility] [address] [id number] [place] [address]- 4917 Feb, [facility] [place] [facility] [address] [id number] [place] [address]- 4242 Feb, [facility] [place] [facility] [address] [id number] [place] [address]- 5851 Feb, [facility] [place] [facility] [address] [id number] [place] [address]- 2940 Feb, [facility] [place] [facility] [address] [id number] [place] [address]- 3182 Jan, [facility] [place] [facility] [address] [id number], [place] [address] 4080 Jan, [facility] [place] [facility] [address] [id number] [place] [address]- 6138 Jan, [facility] [place] [facility] [address] [id number] [place] [address]- 7344 Jan, [facility] [place] [facility] [address] [id number] [address]229 Jan, [facility] [place] [facility] [address] [id number], [place] [address] 8393 Dec, [facility] [place] [facility] [address] [id number] [place] [address]- 7106 Dec, [facility] [place] [facility] [address] [id number] [place] [address]- 4856 Dec, [facility] [place] [facility] [address] [id number] [place] [address]- 4066 Dec, [facility] [place] [facility] [address] [id number] [place] [address]- 2790 Dec, [facility] [place] [facility] [address] [id number] [place] [address]- 7411 Dec, [facility] [place] [facility] [address] [id number] [place] [address]- 8861 Nov, [facility] [place] [facility] [address] [id number] [place] [address]- 3105 Nov, [facility] [place] [facility] [address] [id number] [place] [address]- 9291 Nov, [facility] [place] [facility] [address] [id number] [place] [address]- 9627 Nov, [facility] [place] [facility] [address] [id number] [place] [address]- 2680 Nov, [facility] [place] [facility] [address] [id number] [place] [address]- 9332 Nov, [facility] [place] [facility] [address] [id number] [place] [address]- 6588 Nov, [facility] [place] [facility] [address] [id number] [place] [address]- 7575 Nov, [facility] [place] [facility] [address] [id number] [place] [address]- 0126 Oct, [facility] [place] [facility] [address] [id number] [place] [address]- 1953 Oct, [facility] [place] [facility] [address] [id number] [place] [address]- 9351 06 Oct, 2013 [facility] [place] [facility] [address] [id number] [place] [address]94 Oct, [facility] [place] [facility] [address] [id number] [place] [address]- 3301 05 Oct, 2013 [facility] [place] [facility] [address] [id number] [place] [address]- 9893 05 Oct, 2013 [facility] [place] [facility] [address] [id number] [place] [address]- 1959 Oct, [facility] [place] [facility] [address] [id number] [place] [address]- 1559 Oct, [facility] [place] [facility] [address] [id number] [place] [address]- 9634 Sep, [facility] [place] [facility] [address] [id number] [place] [address]- 4560 Sep, [facility] [place] [facility] [address] [id number] [place] [address]- 9699 Sep, [facility] [place] [facility] [address] [id number], [place] [address]- 7686 14 Sep, 2013 [facility] [place] [facility] [address] [facility] [id number], [place] [address]- 7862 Sep, [facility] [place] [facility] [address] [id number], [place] [address]- 2183 07 Sep, 2013 [facility] [place] [facility] [address] [id number], [place] [address]- 1305 Sep, [facility] [place] [facility] [address] [id number], [place] [address]- 2673 04 Sep, 2013 [facility] [place] [facility] [address] [id number], [place] [address]- 2728 10 Aug, 2013 [facility] [place] [facility] [address] [id number], [place] [address]- 2773 Aug, [facility] [address] [id number] [place] [address]- 3801 Aug, [facility] [place] [facility] [address] [id number] [place] [address]- 9157 Jul, [facility] [place] [facility] [address] [id number] [place] [address]- 3277 Jun, [facility] [place] [facility] [address] [id number] [place] [address]- 8830 Jun, [facility] [place] [facility] [address] [id number] [place] [address]- 8741 Jun, [facility] [place] [facility] [address] [id number] [place] [address]- 6149 Jun, [facility] [address] [id number] [place] [address]- 6704 Jun, [facility] [place] [facility] [address] [id number] [place] [address]- 2515 May, [facility] [place] [facility] [address] [id number] [place] [address]- 3821 May, [facility] [place] [facility] [address] [id number] [place] [address]- 8875 Apr, [facility] [place] [facility] [address] [id number] [place] [address]- 2389 Apr, [facility] [place] [facility] [address] [id number] [place] [address]- 0809 March, [facility] [place] [facility] [address] [id number] [place] [address]- 5374 March, [facility] [place] [facility] [address] [id number] [place] [address] March, [facility] [place] [facility] [address] [id number] [place] [address]- 4025 March, [facility] [place] [facility] [address] [id number] [place] [address]- 4692 March, [facility] [address] [id number] [place] [address]- 1312 Feb, [facility] [place] [facility] [address] [id number] [place] [address]- 5216 Feb, [facility] [address] [id number] [place] [address]- 2892 Feb, [facility] [place] [facility] [address] [id number] [place] [address]- 9510 Jan, [facility] [address] [id number] [place] [address]- 1851 Dec, [facility] [address] [id number] [place] [address]- 9001 Dec, [facility] [address] [id number] [place] [address]- 2935 Dec, [facility] [address] [id number] [place] [address]- 1144 Dec, [facility] [address] [id number] [place] [address]- 6528 Nov, [facility] [address] [id number] [place] [address]- 5193 Nov, [facility] [address] [id number] [place] [address]- 0095 Nov, [facility] [place] [facility] [address] [id number] [place] [address]- 4483 Nov, [facility] [place] [facility] [address] [id number] [place] [address]- 1323 Oct, [facility] [place] [facility] [address] [id number] [place] [address]- 6507 Oct, [facility] [place] [facility] [address] [id number] [place] [address]- 7731 Oct, [facility] [place] [facility] [address] [id number] [place] [address]- 5317 Oct, [facility] [place] [facility] [address] [id number] [place] [address]- 6966 Sep, [facility] [place] [facility] [address] [id number] [place] [address]- 2946 14 Sep, 2012 [facility] [place] [facility] [address] [id number] [place] [address]- 9924 Sep, [facility] [place] [facility] [address] [id number] [place] [address]- 4239 Sep, [facility] [place] [facility] [address] [id number] [place] [address]- 7799 Sep, [facility] [place] [facility] [address] [id number] [place] [address]- 8606 Sep, [facility] [place] [facility] [address] [id number] [place] [address]- 6984 Aug, [facility] [place] [facility] [address] [id number] [place] [address]- 5858 Aug, [facility] [place] [facility] [address] [id number] [place] [address]- 7264 Aug, [facility] [place] [facility] [address] [id number], [place] [address]- 9826 Jul, [facility] [place] [facility] [address] [id number], [place] [address]- 2546 Jul, [facility] [place] [facility] [address] [id number] [place] [address]- 2546 Jun, [facility] [place] [facility] [address] [id number] [place] [address]- 2546 May, [facility] [place] [facility] [address] [id number] [place] [address]- 2546 May, [facility] [place] [facility] [address] [id number] [place] [address] Apr, [facility] [address] [id number] [place] [address]- 3027 Apr, [facility] [place] [facility] [address] [id number] [place] [address]- 9536 March, [facility] [address] [id number] [place] [address]- 0987 March, [facility] [address] [id number] [place] [address]- 1289 Feb, [facility] [address] [id number] [place] [address]- 0693 16 Feb, 2012 [facility] [address] [id number] [place] [address]- 9753 Feb, [facility] [address] [id number] [place] [address]- 9136 Feb, [facility] [address] [id number] [place] [address]- 1671 Jan, [facility] [address] [id number] [place] [address]- 2329 Jan, [facility] [address] [facility] [id number] [place] [address]- 8000 29 Dec, 2011 [facility] [place] [facility] [address] [id number] [place] [address]- 1243 28 Dec, 2011 [facility] [address] [id number] [place] [address]- 5344 26 Dec, 2011 [facility] [place] [facility] [address] [id number] [place] [address]- 0774 23 Dec, 2011 [facility] [place] [facility] [address] [id number] [place] [address]- 9866 20 Dec, 2011 [facility] [place] [facility] [address] [id number] [place] [address]- 3213 15 Dec, 2011 [facility] [address] [id number] [place] [address]- 6401 10 Dec, 2011 [facility] [place] [facility] [address] [id number] [place] [address]- 4626 09 Dec, 2011 [facility] [place] [facility] [address] [facility] [id number] [place] [address]- 5056 08 Dec, 2011 [facility] [place] [facility] [address] [id number] [place] [address]- 7415 07 Dec, 2011 [facility] [place] [facility] [address] [id number] [place] [address]- 2536 Dec, [facility] [place] [facility] [address] [facility] [id number] [place] [address]- 1033 Dec, [facility] [place] [facility] [address] [facility] [id number] [place] [address]- 4929 Dec, [facility] [place] [facility] [address] [facility] [id number] [place] [address]- 9963 Nov, [facility] [place] [facility] [address] [facility] [id number] [place] [address]- 0758 Nov, [facility] [place] [facility] [address] [facility] [id number] [place] [address]- 0680 Nov, [facility] [place] [facility] [address] [facility] [id number] [place] [address]- 9358 Nov, [facility] [place] [facility] [address] [facility] [id number] [place] [address]- 0555 Nov, [facility] [place] [facility] [address] [facility] [id number] [place] [address]- 6284 Nov, [facility] [place] [facility] [address] [facility] [id number] [place] [address]- 0593 Oct, [facility] [place] [facility] [address] [facility] [id number] [place] [address]- 8318 Oct, [facility] [place] [facility] [address] [id number] [place] [address]- 4133 29 Sep, 2011 [facility] [place] [facility] [address] [id number] [place] [address]- 8001 29 Sep, 2011 [facility] [place] [facility] [address] [id number] [place] [address]- 6427 Sep, [facility] [place] [facility] [address] [id number] [place] [address]- 8031 Sep, [facility] [place] [facility] [address] [id number] [place] [address]- 6760 Sep, [facility] [place] [facility] [address] [id number] [place] [address]- 2894 March, [facility] [place] [facility] [address] [id number] [place] [address]- 0267 Oct, [facility] [place] [facility] [address] [id number] [place] [address]- 7436 Oct, [facility] [place] [facility] [address] [id number] [place] [address]- 4496 Oct, [facility] [place] [facility] [address] [id number] [place] [address]- 4885 24 Sep, 2010 [facility] [place] [facility] [address] [id number] [place] [address]- 3851 17 Sep, 2010 [facility] [place] [facility] [address] [id number] [place] [address]- 3346 17 Sep, 2010 [facility] [place] [facility] [address] [id number] [place] [address]- 6248 16 Sep, 2010 [facility] [place] [facility] [address] [id number] [place] [address]- 6015 Aug, [facility] [place] [facility] [address] [id number] [place] [address]- 6413 Oct, [facility] [place] [facility] [address] [id number] [place] [address] 1955 Oct, [facility] [address] [facility] [id number] [place] [address]- 2546 May, IMMUNIZATIONS No Known Immunizations SOCIAL HISTORY Never Assessed REASON FOR VISIT Controlled Med Refill 04/06/18 PLAN OF CARE VITAL SIGNS MEDICATIONS Medication [...]
--- OUTSIDE RECORDS SUMMARY | 2018-12-11 10:21 | XMS REPORT ---
Author Author LEIDA ANDINO Organization [facility] Address [address] [place] [address] Care Team Providers Care Metrology Manager Name Role Phone LEIDA ANDINO Unavailable PROBLEMS Type Condition ICD9-CM Code [id number] Code Onset Dates Condition Status SNOMED Code Problem Stress incontinence of urine N39.3 Active 23402364 Problem Anxiety F41.9 Active 04654798 Problem Anxiety disorder, unspecified F41.9 Active 390653848 Problem Unspecified episodic mood disorder F39 Active 960611876 Problem Unspecified personality disorder F60.9 Active 75670865 ALLERGIES No Information ENCOUNTERS Encounter Location Date Diagnosis [place] [id number] [place] [address] 53038- 0527 Jun, [place] [id number] [place] [address] 02628- 2199 May, Unspecified episodic mood disorder F39 ; Anxiety disorder, unspecified F41.9 and Unspecified personality disorder F60.9 [place] [id number] [place] [address] 07292- 7337 May, Anxiety disorder, unspecified F41.9 [place] [id number] [place] [address] 52639- 3629 Apr, Anxiety disorder, unspecified F41.9 [place] [id number] [place] [address] 70229- 9891 Apr, Unspecified episodic mood disorder F39 ; Anxiety disorder, unspecified F41.9 and Unspecified personality disorder F60.9 [place] [id number] [place] [address] 39645- 1758 March, Anxiety disorder, unspecified F41.9 [place] [id number] [place] [address] 93462- 3497 March, Unspecified episodic mood disorder F39 ; Anxiety disorder, unspecified F41.9 and Unspecified personality disorder F60.9 [facility] [id number] [place] [address] 91903- 0796 March, Anxiety disorder, unspecified F41.9 [facility] [id number] [place] [address] 42725- 0663 Feb, Unspecified episodic mood disorder F39 ; Anxiety disorder, unspecified F41.9 and Unspecified personality disorder F60.9 [facility] [id number] [place] [address] 61959- 6783 Feb, Unspecified episodic mood disorder F39 ; Anxiety disorder, unspecified F41.9 and Unspecified personality disorder F60.9 [place] [id number] [place] [address] 15757- 9762 Feb, Anxiety disorder, unspecified F41.9 [facility] [id number] [place] [address] 03393- 0865 Jan, Unspecified episodic mood disorder F39 ; Anxiety disorder, unspecified F41.9 and Unspecified personality disorder F60.9 [place] [id number] [place] [address] 44883- 1826 Jan, Anxiety F41.9 [place] [id number] [place] [address] 10777- 1772 Jan, Anxiety disorder, unspecified F41.9 [facility] [id number] [place] [address] 95961- 7720 Dec, Unspecified episodic mood disorder F39 ; Anxiety disorder, unspecified F41.9 and Unspecified personality disorder F60.9 [facility] [address] [place] [address] 39996- 1101 Dec, Anxiety F41.9 [facility] [id number] [place] [address] 56415- 2710 Dec, Anxiety disorder, unspecified F41.9 [facility] [address] [address]- 3387 Dec, Unspecified episodic mood disorder F39 ; Anxiety disorder, unspecified F41.9 and Unspecified personality disorder F60.9 [facility] [address] [address]- 1474 Nov, [facility] [id number] [place] [address] 10675- 9394 Nov, [facility] [id number] [place] [address] 07962- 2671 Nov, Unspecified episodic mood disorder F39 ; Anxiety disorder, unspecified F41.9 and Unspecified personality disorder F60.9 [place] [address] [address]- 5614 Nov, Anxiety disorder, unspecified F41.9 [facility] [id number] [place] [address] 14194- 9389 Oct, Unspecified episodic mood disorder F39 ; Anxiety disorder, unspecified F41.9 and Unspecified personality disorder F60.9 [place] [address] [place] [address] 15557- 7386 Oct, Vaginal yeast infection B37.3 [facility] [address] [address]- 2984 Oct, [facility] [id number] [place] [address] 26084- 4064 Oct, Anxiety disorder, unspecified F41.9 [facility] [address] [place] [address] 08594- 0923 Oct, Routine gynecological examination Z01.419 ; Screening for breast cancer Z12.31 and Vaginal yeast infection B37.3 [facility] [address] [address]- 0849 Sep, Unspecified episodic mood disorder F39 ; Anxiety disorder, unspecified F41.9 and Unspecified personality disorder F60.9 [facility] [id number] [place] [address] 98185- 9365 Sep, [place] [id number] [place] [address] 51444- 0752 Sep, Anxiety disorder, unspecified F41.9 [place] [id number] [place] [address] 00576- 6480 Sep, Bronchitis J40 and Stress incontinence of urine N39.3 [place] [address] 46144- 0837 Sep, Stress incontinence of urine N39.3 ; Bronchitis J40 and Anxiety F41.9 [place] [id number] [place] [address] 76179- 1580 Sep, [place] [address] 64955- 3636 Sep, Unspecified episodic mood disorder F39 ; Anxiety disorder, unspecified F41.9 and Unspecified personality disorder F60.9 [place] [id number] [place] [address] 14659- 6833 Aug, Anxiety F41.9 ; Stress incontinence of urine N39.3 and Encounter for immunization Z23 [place] [id number] [place] [address] 27643- 6993 Aug, Anxiety disorder, unspecified F41.9 [place] [id number] [place] [address] 46709- 0937 Jul, Unspecified episodic mood disorder F39 ; Anxiety disorder, unspecified F41.9 and Unspecified personality disorder F60.9 [place] [id number] [place] [address] 64036- 8174 Jul, [facility] [id number] [place] [address] 83657- 2352 Jul, Unspecified episodic mood disorder F39 ; Anxiety disorder, unspecified F41.9 and Unspecified personality disorder F60.9 [facility] [address] [address]- 5363 Jul, Anxiety disorder, unspecified F41.9 [facility] [address] [address]- 7667 Jun, Unspecified episodic mood disorder F39 ; Anxiety disorder, unspecified F41.9 and Unspecified personality disorder F60.9 [facility] [id number] [place] [address] 33624- 1083 Jun, Anxiety disorder, unspecified F41.9 [facility] [id number] [place] [address] 62355- 9268 Jun, Unspecified episodic mood disorder F39 ; Anxiety disorder, unspecified F41.9 and Unspecified personality disorder F60.9 [facility] [id number] [place] [address] 86241- 5694 Jun, [facility] [id number] [place] [address] 65939- 3167 May, Anxiety disorder, unspecified F41.9 [facility] [id number] [place] [address] 66942- 4966 May, Unspecified episodic mood disorder F39 ; Anxiety disorder, unspecified F41.9 and Unspecified personality disorder F60.9 [facility] [address] [place] [address] 81493- 4890 Apr, Anxiety disorder, unspecified F41.9 [facility] [address] [place] [address] 92050- 8999 March, Unspecified episodic mood disorder F39 ; Anxiety disorder, unspecified F41.9 and Unspecified personality disorder F60.9 [facility] [address] [place] [address] 10107- 3162 March, Bronchitis J40 [facility] [id number] [place] [address] 14751- 3127 March, Unspecified episodic mood disorder F39 ; Anxiety disorder, unspecified F41.9 and Unspecified personality disorder F60.9 [facility] [address] [place] [address] 05539- 3185 Feb, [facility] [address] [place] [address] 99960- 8643 Feb, Unspecified episodic mood disorder F39 ; Anxiety disorder, unspecified F41.9 and Unspecified personality disorder F60.9 [facility] [address] [place] [address] 91776- 1466 Feb, Bronchitis J40 [facility] [id number] [place] [address] 60040- 2261 Feb, Unspecified episodic mood disorder F39 ; Anxiety disorder, unspecified F41.9 and Unspecified personality disorder F60.9 [facility] [id number] [place] [address] 46470- 7219 Jan, Unspecified episodic mood disorder F39 ; Anxiety disorder, unspecified F41.9 and Unspecified personality disorder F60.9 [facility] [address] [place] [address] 89365- 7987 Jan, Bronchitis J40 [facility] [address] [place] [address] 74393- 5462 Jan, Unspecified episodic mood disorder F39 ; Anxiety disorder, unspecified F41.9 and Unspecified personality disorder F60.9 [facility] [address] [place] [address] 63225- 6420 Dec, Anxiety F41.9 [facility] [address] [place] [address] 48053- 6198 Dec, Unspecified episodic mood disorder F39 ; Anxiety disorder, unspecified F41.9 and Unspecified personality disorder F60.9 [facility] [address] [id number] [id number] Dec, [facility] [address] [address]- 7596 Dec, Unspecified episodic mood disorder F39 ; Anxiety disorder, unspecified F41.9 and Unspecified personality disorder F60.9 [facility] [address] [address]- 0833 Nov, [facility] [address] [address]- 1389 Oct, Unspecified episodic mood disorder F39 ; Anxiety disorder, unspecified F41.9 and Unspecified personality disorder F60.9 [facility] [address] [address]- 7850 Oct, [facility] [address], [place] [address] -7[address] Oct, Acute upper respiratory infection, unspecified J06.9 ; Other viral agents as the cause of diseases classified elsewhere B97.89 and Cough R05 [facility] [address], [place] [address]- 8079 Aug, Unspecified episodic mood disorder F39 ; Anxiety disorder, unspecified F41.9 and Unspecified personality disorder F60.9 [facility] [address], [place] [address]- 2307 Aug, [facility] [address], [place] [address]- 7322 Aug, [facility] [address] [address]- 7872 Aug, [facility] [address], [place] [address]- 8979 Aug, Visit for TB skin test Z11.1 [facility] [address], [place] [address]- 4133 Jul, [facility] [address], [place] [address]- 9458 Jul, [facility] [address] [facility] [id number], [place] [address]- 1124 Jul, [facility] [address] [facility] [id number] [place] [address]- 0616 Jul, [facility] [address] [facility] [id number], [place] [address]- 3346 Jul, [facility] [address] [place] [address] 70802- 5976 Jul, Unspecified episodic mood disorder F39 ; Anxiety disorder, unspecified F41.9 and Unspecified personality disorder F60.9 [facility] [address] [facility] [id number], [place] [address]- 4544 Jun, [facility] [address] [facility] [id number], [place] [address]- 1678 Jun, Unspecified episodic mood disorder F39 ; Anxiety disorder, unspecified F41.9 and Unspecified personality disorder F60.9 [facility] [address] [facility] [id number], [place] [address]- 3023 Jun, [facility] [id number] [address]- 8902 May, Unspecified episodic mood disorder F39 ; Anxiety disorder, unspecified F41.9 and Unspecified personality disorder F60.9 [facility] [address], [place] [address]- 4548 May, [facility] [id number] [address]- 5869 May, [facility] [address] [facility] [id number], [place] [address]- 2102 May, Edema, unspecified R60.9 [facility] [address] [facility] [id number][place] [address]- 0332 Apr, [facility] [address], [place] [address]- 9715 Apr, Unspecified episodic mood disorder F39 ; Anxiety disorder, unspecified F41.9 and Unspecified personality disorder F60.9 [place] [id number] [place] [address] 58676- 3740 Apr, Anxiety F41.9 [facility] [id number] [place] [address] 01990- 8079 March, Unspecified episodic mood disorder F39 ; Anxiety disorder, unspecified F41.9 and Unspecified personality disorder F60.9 [facility] [id number] [place] [address] 44314- 9903 March, Unspecified episodic mood disorder F39 ; Anxiety disorder, unspecified F41.9 and Unspecified personality disorder F60.9 [place] [id number] [place] [address] 03128- 3941 Feb, Anxiety F41.9 [place] [id number] [place] [address] 26813- 4457 Feb, Unspecified episodic mood disorder F39 ; Anxiety disorder, unspecified F41.9 and Unspecified personality disorder F60.9 [place] [id number] [place] [address] 26669- 2703 Jan, Unspecified episodic mood disorder F39 ; Anxiety disorder, unspecified F41.9 and Unspecified personality disorder F60.9 [place] [address] [place] [address] 33336- 8641 Jan, Unspecified episodic mood disorder F39 ; Anxiety disorder, unspecified F41.9 and Unspecified personality disorder F60.9 [place] [address] [place] [address] 99841- 7071 Jan, Edema, unspecified R60.9 [facility] [id number] [place] [address] 55344- 9731 Dec, [place] [id number] [place] [address] 59403- 0227 Dec, [place] [address] [address]- 7811 Dec, [place] [id number] [place] [address] 08191- 4437 Dec, Unspecified episodic mood disorder F39 ; Anxiety disorder, unspecified F41.9 and Unspecified personality disorder F60.9 [place] [id number] [place] [address] 64697- 1467 Nov, [place] [id number] [place] [address] 45697- 3066 Nov, Unspecified episodic mood disorder F39 ; Anxiety disorder, unspecified F41.9 and Unspecified personality disorder F60.9 [place] [address] [place] [address] 70263- 3531 Oct, Unspecified episodic mood disorder F39 ; Anxiety disorder, unspecified F41.9 and Unspecified personality disorder F60.9 [place] [id number] [place] [address] 70982- 4150 Oct, Unspecified episodic mood disorder F39 ; Anxiety disorder, unspecified F41.9 and Unspecified personality disorder F60.9 [place] [address] [place] [address] 62898- 6952 Sep, Unspecified episodic mood disorder F39 ; Anxiety disorder, unspecified F41.9 and Unspecified personality disorder F60.9 [place] [address] [place] [address] 79915- 7967 Sep, Encounter for immunization Z23 [place] [id number] [place] [address] 44543- 0968 10 Sep, 2015 Edema of left lower extremity R60.0 [place] [id number] [place] [address] 74229- 8389 Aug, Unspecified episodic mood disorder F39 ; Anxiety disorder, unspecified F41.9 and Unspecified personality disorder F60.9 [place] [id number] [address]- 0349 Aug, [facility] [id number] [place] [address] 66433- 5949 Aug, Edema of left lower extremity R60.0 [facility] [id number] [place] [address] 54759- 5293 Aug, [facility] [id number] [place] [address] 82994- 4242 Aug, Unspecified episodic mood disorder F39 ; Anxiety disorder, unspecified F41.9 and Unspecified personality disorder F60.9 [facility] [id number] [place] [address] 04581- 5384 Jul, Unspecified episodic mood disorder 296.90 ; Anxiety disorder , unspecified 300.00 and Unspecified personality disorder 301.9 [facility] [id number] [place] [address] 76166- 6392 Jul, Unspecified episodic mood disorder 296.90 ; Anxiety disorder , unspecified 300.00 and Unspecified personality disorder 301.9 [facility] [id number] [place] [address] 87746- 5023 Jul, [facility] [id number] [place] [address] 06094- 2737 Jun, Unspecified episodic mood disorder 296.90 ; Anxiety disorder , unspecified 300.00 and Unspecified personality disorder 301.9 [facility] [id number] [place] [address] 76528- 3133 May, Unspecified episodic mood disorder 296.90 ; Anxiety disorder , unspecified 300.00 and Unspecified personality disorder 301.9 [facility] [id number] [place] [address] 85983- 3969 May, Anxiety disorder, unspecified 300.00 [facility] [address] [place] [address] 73070- 7594 May, Anxiety disorder, unspecified 300.00 and Edema 782.3 [facility] [address] [address]- 3172 May, Unspecified episodic mood disorder 296.90 ; Anxiety disorder , unspecified 300.00 and Unspecified personality disorder 301.9 [facility] [address], [place] [address]- 7029 Apr, [facility] [id number] [place] [address] 56197- 6696 Apr, Unspecified episodic mood disorder 296.90 ; Anxiety disorder , unspecified 300.00 and Personality disorder, unspecified 301.9 [facility] [address] [place] [address] 55939- 1586 Apr, Unspecified episodic mood disorder 296.90 ; Anxiety disorder , unspecified 300.00 and Unspecified personality disorder 301.9 [facility] [address], [place] [address]- 1878 March, [facility] [address] [place] [address] 31135- 2644 March, Unspecified episodic mood disorder 296.90 ; Anxiety disorder , unspecified 300.00 and Unspecified personality disorder 301.9 [facility] [address] [address]- 7819 March, Unspecified episodic mood disorder 296.90 ; Anxiety disorder 300.00 and Unspecified personality disorder 301.9 [facility] [address] [address]- 8407 March, [facility] [address], [place] [address]- 4741 March, [facility] [address], [place] [address]- 4380 Feb, [facility] [address], [place] [address]- 3328 Feb, [facility] [address], [place] [address]- 3429 Feb, [facility] [place] [facility] [address] [id number] [place] [address]- 3000 Jan, [facility] [place] [facility] [address] [id number] [place] [address]- 0725 Jan, [facility] [place] [facility] [address] [id number] [place] [address]- 4002 Jan, [facility] [place] [facility] [address] [id number] [place] [address] Jan, [facility] [place] [facility] [address] [id number] [place] [address] Jan, [facility] [place] [facility] [address] [id number] [place] [address] Jan, [facility] [place] [facility] [address] [facility] [id number] [place] [id number] Jan, [facility] [place] [facility] [address] [id number], [place] [address] Jan, [facility] [place] [facility] [address] [facility] [id number] [place] [address] Jan, [facility] [place] [facility] [address] [facility] [id number], [place] [address] Jan, [facility] [place] [facility] [address] [id number], [place] [address] Jan, [facility] [place] [facility] [address] [id number], [place] [address] Jan, [facility] [place] [facility] [address] [id number], [place] [address] Jan, [facility] [place] [facility] [address] [id number], [place] [address] Jan, [facility] [place] [facility] [address] [facility] [id number], [place] [address] Jan, [facility] [place] [facility] [address] [id number], [place] [address] Jan, [facility] [place] [facility] [address] [id number] [place] [address] Dec, 2014 [facility] [place] [facility] [address] [id number] [place] [address] Dec, 2014 [facility] [place] [facility] [address] [id number] [place] [address] Dec, 2014 [facility] [place] [facility] [address] [id number] [place] [address] Dec, [facility] [place] [facility] [address] [id number] [place] [address] Nov, [facility] [place] [facility] [address] [id number] [place] [address] Nov, [facility] [place] [facility] [address] [facility] [id number] [place] [address] Nov, [facility] [place] [facility] [address] [facility] [id number] [place] [address] Nov, [facility] [place] [facility] [address] [facility] [facility] [id number] [place] [address] Oct, [facility] [place] [facility] [address] [facility] [id number] [place] [address] 7184 Oct, [facility] [place] [facility] [address] [id number] [place] [address] 3539 Oct, [facility] [place] [facility] [address] [id number] [place] [address]- 8332 Oct, [facility] [place] [facility] [address] [id number] [place] [address]- 1656 Oct, [facility] [place] [facility] [address] [facility] [id number] [place] [address]- 3895 Oct, [facility] [place] [facility] [address] [id number] [place] [address]- 7787 Oct, [facility] [place] [facility] [address] [id number] [place] [address]- 4229 Oct, [facility] [place] [facility] [address] [id number] [place] [address]- 1279 Oct, [facility] [place] [facility] [address] [id number] [place] [address]- 0700 Oct, [facility] [place] [facility] [address] [id number] [place] [address]- 9098 Oct, [facility] [place] [facility] [address] [id number] [place] [address]- 7532 Oct, [facility] [place] [facility] [address] [id number] [place] [address]- 5734 Oct, [facility] [place] [facility] [address] [id number] [place] [address]- 9757 Oct, [facility] [place] [facility] [address] [id number] [place] [address]- 9687 Oct, [facility] [place] [facility] [address] [id number] [place] [address]- 0478 Oct, [facility] [place] [facility] [address] [id number] [place] [address]- 2521 Sep, [facility] [place] [facility] [address] [id number] [place] [address]- 9142 Sep, [facility] [place] [facility] [address] [id number] [place] [address]- 2247 Sep, [facility] [place] [facility] [address] [id number] [place] [address]- 1775 Sep, [facility] [place] [facility] [address] [id number] [place] [address]- 4688 Sep, [facility] [place] [facility] [address] [id number] [place] [address]- 4888 Sep, [facility] [place] [facility] [address] [id number] [place] [address]- 8480 Sep, [facility] [place] [facility] [address] [id number] [place] [address]- 1471 Sep, [facility] [place] [facility] [address] [id number] [place] [address]- 5385 Sep, [facility] [place] [facility] [address] [id number] [place] [address]- 4979 Sep, [facility] [place] [facility] [address] [id number] [place] [address]- 9876 Aug, [facility] [place] [facility] [address] [id number] [place] [address]- 6228 Aug, [facility] [place] [facility] [address] [id number] [place] [address]- 8879 Aug, [facility] [place] [facility] [address] [id number] [place] [address]- 0004 Aug, [facility] [place] [facility] [address] [id number] [place] [address]- 6877 Aug, [facility] [place] [facility] [address] [id number] [place] [address]- 6796 Aug, [facility] [place] [facility] [address] [id number] [place] [address]- 4172 Aug, [facility] [place] [facility] [address] [id number] [place] [address]- 6579 Aug, [facility] [place] [facility] [address] [id number] [place] [address]- 4629 29 Jul, 2014 [facility] [place] [facility] [address] [id number] [place] [address]- 0060 29 Jul, 2014 [facility] [place] [facility] [address] [id number] [place] [address]- 7457 Jul, [facility] [place] [facility] [address] [id number] [place] [address]- 7282 05 Jul, 2014 [facility] [place] [facility] [address] [id number] [place] [address]- 9306 Jul, [facility] [place] [facility] [address] [id number] [place] [address]- 0136 Jul, [facility] [place] [facility] [address] [id number] [place] [address]- 3469 Jun, [facility] [place] [facility] [address] [id number] [place] [address]- 0723 Jun, [facility] [place] [facility] [address] [id number] [place] [address]- 5641 May, [facility] [place] [facility] [address] [id number] [place] [address]- 9961 May, [facility] [place] [facility] [address] [id number] [place] [address]- 6606 May, [facility] [place] [facility] [address] [id number] [place] [address]- 1440 May, [facility] [place] [facility] [address] [id number] [place] [address]- 5711 May, [facility] [place] [facility] [address] [id number] [place] [address]- 3297 May, [facility] [place] [facility] [address] [id number] [place] [address]- 9032 May, [facility] [place] [facility] [address] [id number] [place] [address]- 2037 May, [facility] [place] [facility] [address] [id number] [place] [address]- 5338 Apr, [facility] [place] [facility] [address] [id number] [place] [address]- 7173 Apr, [facility] [place] [facility] [address] [id number] [place] [address]- 9205 March, [facility] [place] [facility] [address] [id number] [place] [address] March, [facility] [place] [facility] [address] [id number] [place] [address]- 9157 Feb, [facility] [place] [facility] [address] [id number] [place] [address]- 2664 Feb, [facility] [place] [facility] [address] [id number] [place] [address]- 8139 Feb, [facility] [place] [facility] [address] [id number] [place] [address]- 9803 Feb, [facility] [place] [facility] [address] [id number] [place] [address]- 4230 Feb, [facility] [place] [facility] [address] [id number] [place] [address]- 0662 Feb, [facility] [place] [facility] [address] [id number] [place] [address]- 6602 Feb, [facility] [place] [facility] [address] [id number] [place] [address]- 8598 Feb, [facility] [place] [facility] [address] [id number] [place] [address]- 5249 Feb, [facility] [place] [facility] [address] [id number] [place] [address]- 6277 Feb, [facility] [place] [facility] [address] [id number] [place] [address]- 3384 Jan, [facility] [place] [facility] [address] [id number], [place] [address]- 8602 Jan, [facility] [place] [facility] [address] [id number] [place] [address]- 3355 Jan, [facility] [place] [facility] [address] [id number] [place] [address]- 8927 Jan, [facility] [place] [facility] [address] [id number] [address]257 Jan, [facility] [place] [facility] [address] [id number], [place] [address]- 3396 Dec, [facility] [place] [facility] [address] [id number] [place] [address]- 4906 Dec, [facility] [place] [facility] [address] [id number] [place] [address]- 6296 Dec, [facility] [place] [facility] [address] [id number] [place] [address]- 8206 Dec, [facility] [place] [facility] [address] [id number] [place] [address]- 4657 Dec, [facility] [place] [facility] [address] [id number] [place] [address]- 6146 Dec, [facility] [place] [facility] [address] [id number] [place] [address]- 9114 Nov, [facility] [place] [facility] [address] [id number] [place] [address]- 7379 Nov, [facility] [place] [facility] [address] [id number] [place] [address]- 5045 Nov, [facility] [place] [facility] [address] [id number] [place] [address]- 4565 Nov, [facility] [place] [facility] [address] [id number] [place] [address]- 3057 Nov, [facility] [place] [facility] [address] [id number] [place] [address]- 3507 Nov, [facility] [place] [facility] [address] [id number] [place] [address]- 3329 Nov, [facility] [place] [facility] [address] [id number] [place] [address]- 2870 Nov, [facility] [place] [facility] [address] [id number] [place] [address]- 2973 Oct, [facility] [place] [facility] [address] [id number] [place] [address]- 2723 Oct, [facility] [place] [facility] [address] [id number] [place] [address]- 8582 06 Oct, 2013 [facility] [place] [facility] [address] [id number] [place] [address] Oct, [facility] [place] [facility] [address] [id number] [place] [address]- 0171 05 Oct, 2013 [facility] [place] [facility] [address] [id number] [place] [address]- 3648 05 Oct, 2013 [facility] [place] [facility] [address] [id number] [place] [address]- 0609 Oct, [facility] [place] [facility] [address] [id number] [place] [address]- 5450 Oct, [facility] [place] [facility] [address] [id number] [place] [address]- 4581 Sep, [facility] [place] [facility] [address] [id number] [place] [address]- 8070 Sep, [facility] [place] [facility] [address] [id number] [place] [address]- 4810 Sep, [facility] [place] [facility] [address] [id number], [place] [address]- 7382 14 Sep, 2013 [facility] [place] [facility] [address] [facility] [id number], [place] [address]- 2583 Sep, [facility] [place] [facility] [address] [id number], [place] [address]- 4077 07 Sep, 2013 [facility] [place] [facility] [address] [id number], [place] [address]- 7942 Sep, [facility] [place] [facility] [address] [id number], [place] [address]- 3385 04 Sep, 2013 [facility] [place] [facility] [address] [id number], [place] [address]- 5942 10 Aug, 2013 [facility] [place] [facility] [address] [id number], [place] [address]- 3242 Aug, [facility] [address] [id number] [place] [address]- 3115 Aug, [facility] [place] [facility] [address] [id number] [place] [address]- 9918 Jul, [facility] [place] [facility] [address] [id number] [place] [address]- 6086 Jun, [facility] [place] [facility] [address] [id number] [place] [address]- 3182 Jun, [facility] [place] [facility] [address] [id number] [place] [address]- 0377 Jun, [facility] [place] [facility] [address] [id number] [place] [address]- 5993 Jun, [facility] [address] [id number] [place] [address]- 6506 Jun, [facility] [place] [facility] [address] [id number] [place] [address]- 2187 May, [facility] [place] [facility] [address] [id number] [place] [address]- 8891 May, [facility] [place] [facility] [address] [id number] [place] [address]- 2008 Apr, [facility] [place] [facility] [address] [id number] [place] [address]- 6525 Apr, [facility] [place] [facility] [address] [id number] [place] [address]- 4706 March, [facility] [place] [facility] [address] [id number] [place] [address]- 5613 March, [facility] [place] [facility] [address] [id number] [place] 3728 March, [facility] [place] [facility] [address] [id number] [place] [address]- 4032 March, [facility] [place] [facility] [address] [id number] [place] [address]- 6588 March, [facility] [address] [id number] [place] [address]- 9025 Feb, [facility] [place] [facility] [address] [id number] [place] [address]- 5202 Feb, [facility] [address] [id number] [place] [address]- 0272 Feb, [facility] [place] [facility] [address] [id number] [place] [address]- 6455 Jan, [facility] [address] [id number] [place] [address]- 1155 Dec, [facility] [address] [id number] [place] [address]- 3101 Dec, [facility] [address] [id number] [place] [address]- 5105 Dec, [facility] [address] [id number] [place] [address]- 0871 Dec, [facility] [address] [id number] [place] [address]- 1387 Nov, [facility] [address] [id number] [place] [address]- 2367 Nov, [facility] [address] [id number] [place] [address]- 3787 Nov, [facility] [place] [facility] [address] [id number] [place] [address]- 1458 Nov, [facility] [place] [facility] [address] [id number] [place] [address]- 0899 Oct, [facility] [place] [facility] [address] [id number] [place] [address]- 0931 Oct, [facility] [place] [facility] [address] [id number] [place] [address]- 2423 Oct, [facility] [place] [facility] [address] [id number] [place] [address]- 5331 Oct, [facility] [place] [facility] [address] [id number] [place] [address]- 6026 Sep, [facility] [place] [facility] [address] [id number] [place] [address]- 1316 14 Sep, 2012 [facility] [place] [facility] [address] [id number] [place] [address]- 6235 Sep, [facility] [place] [facility] [address] [id number] [place] [address]- 9867 Sep, [facility] [place] [facility] [address] [id number] [place] [address]- 6882 Sep, [facility] [place] [facility] [address] [id number] [place] [address]- 5376 Sep, [facility] [place] [facility] [address] [id number] [place] [address]- 9927 Aug, [facility] [place] [facility] [address] [id number] [place] [address]- 4736 Aug, [facility] [place] [facility] [address] [id number] [place] [address]- 9552 Aug, [facility] [place] [facility] [address] [id number], [place] [address]- 6526 Jul, [facility] [place] [facility] [address] [id number], [place] [address]- 2546 Jul, [facility] [place] [facility] [address] [id number] [place] [address]- 2546 Jun, [facility] [place] [facility] [address] [id number] [place] [address]- 2546 May, [facility] [place] [facility] [address] [id number] [place] [address]- 2546 May, [facility] [place] [facility] [address] [id number] [place] [address]- 8229 Apr, [facility] [address] [id number] [place] [address]- 3534 Apr, [facility] [place] [facility] [address] [id number] [place] [address]- 8056 March, [facility] [address] [id number] [place] [address]- 0297 March, [facility] [address] [id number] [place] [address]- 9137 Feb, [facility] [address] [id number] [place] [address]- 1714 16 Feb, 2012 [facility] [address] [id number] [place] [address]- 8961 Feb, [facility] [address] [id number] [place] [address]- 0856 Feb, [facility] [address] [id number] [place] [address]- 0839 Jan, [facility] [address] [id number] [place] [address]- 1026 Jan, [facility] [address] [facility] [id number] [place] [address]- 0351 29 Dec, 2011 [facility] [place] [facility] [address] [id number] [place] [address]- 7530 28 Dec, 2011 [facility] [address] [id number] [place] [address]- 8685 26 Dec, 2011 [facility] [place] [facility] [address] [id number] [place] [address]- 1191 23 Dec, 2011 [facility] [place] [facility] [address] [id number] [place] [address]- 9336 20 Dec, 2011 [facility] [place] [facility] [address] [id number] [place] [address]- 7189 15 Dec, 2011 [facility] [address] [id number] [place] [address]- 9400 10 Dec, 2011 [facility] [place] [facility] [address] [id number] [place] [address]- 9136 09 Dec, 2011 [facility] [place] [facility] [address] [facility] [id number] [place] [address]- 3896 08 Dec, 2011 [facility] [place] [facility] [address] [id number] [place] [address]- 5261 07 Dec, 2011 [facility] [place] [facility] [address] [id number] [place] [address]- 6094 Dec, [facility] [place] [facility] [address] [facility] [id number] [place] [address]- 9627 Dec, [facility] [place] [facility] [address] [facility] [id number] [place] [address]- 3975 Dec, [facility] [place] [facility] [address] [facility] [id number] [place] [address]- 9901 Nov, [facility] [place] [facility] [address] [facility] [id number] [place] [address]- 4899 Nov, [facility] [place] [facility] [address] [facility] [id number] [place] [address]- 1849 Nov, [facility] [place] [facility] [address] [facility] [id number] [place] [address]- 0169 Nov, [facility] [place] [facility] [address] [id number] [place] [address]- 5639 Nov, [facility] [place] [facility] [address] [facility] [id number] [place] [address]- 4484 Nov, [facility] [place] [facility] [address] [facility] [id number] [place] [address]- 0027 Oct, [facility] [place] [facility] [address] [facility] [id number] [place] [address]- 0461 Oct, [facility] [place] [facility] [address] [id number] [place] [address]- 8365 29 Sep, 2011 [facility] [place] [facility] [address] [id number] [place] [address]- 3892 29 Sep, 2011 [facility] [place] [facility] [address] [id number] [place] [address]- 5186 Sep, [facility] [place] [facility] [address] [id number] [place] [address]- 8380 Sep, [facility] [place] [facility] [address] [id number] [place] [address]- 9803 Sep, [facility] [place] [facility] [address] [id number] [place] [address]- 6033 March, [facility] [place] [facility] [address] [id number] [place] [address]- 5608 Oct, [facility] [place] [facility] [address] [id number] [place] [address] Oct, [facility] [place] [facility] [address] [id number] [place] [address] Oct, [facility] [place] [facility] [address] [id number] [place] [address] 24 Sep, 2010 [facility] [place] [facility] [address] [id number] [place] [address] 17 Sep, 2010 [facility] [place] [facility] [address] [id number] [place] [address] 17 Sep, 2010 [facility] [place] [facility] [address] [id number] [place] [address] 16 Sep, 2010 [facility] [place] [facility] [address] [id number] [place] [address] Aug, [facility] [place] [facility] [address] [id number] [place] [address] Oct, [facility] [place] [facility] [address] [id number] [place] [address] Oct, [facility] [address] [facility] [id number] [place] [address] May, IMMUNIZATIONS No Known Immunizations SOCIAL [...]
--- OUTSIDE RECORDS SUMMARY | 2018-12-11 10:22 | XMS REPORT ---
Author Author SANJEEV PHELPS [facility] Address [address] [place] [address] Care Team Providers Care Maintenance Inspector Name Role Phone SANJEEV PHELPS Unavailable PROBLEMS Type Condition ICD9-CM Code BXC11-QM Code Onset Dates Condition Status SNOMED Code Problem Stress incontinence of urine N39.3 Active 30675983 Problem Anxiety F41.9 Active 80301743 Problem Anxiety disorder, unspecified F41.9 Active 243622400 Problem Unspecified episodic mood disorder F39 Active 998240783 Problem Unspecified personality disorder F60.9 Active 24170637 ALLERGIES No Information ENCOUNTERS Encounter Location Date Diagnosis [facility] [id number] [place] [address] 00944- 1429 Jun, [facility] [id number] [place] [address] 11318- 0104 May, Unspecified episodic mood disorder F39 ; Anxiety disorder, unspecified F41.9 and Unspecified personality disorder F60.9 [place] [id number] [place] [address] 70703- 5445 May, Anxiety disorder, unspecified F41.9 [place] [id number] [place] [address] 65399- 5757 Apr, Anxiety disorder, unspecified F41.9 [place] [id number] [place] [address] 00007- 7559 Apr, Unspecified episodic mood disorder F39 ; Anxiety disorder, unspecified F41.9 and Unspecified personality disorder F60.9 [place] [id number] [place] [address] 56060- 5286 March, Anxiety disorder, unspecified F41.9 [place] [facility] [id number] [address] March, Unspecified episodic mood disorder F39 ; Anxiety disorder, unspecified F41.9 and Unspecified personality disorder F60.9 [facility] [id number] [place] [address] 89741- 2301 March, Anxiety disorder, unspecified F41.9 [facility] [id number] [place] [address] 90778- 8881 Feb, Unspecified episodic mood disorder F39 ; Anxiety disorder, unspecified F41.9 and Unspecified personality disorder F60.9 [place] [id number] [place] [address] 96753- 7146 Feb, Unspecified episodic mood disorder F39 ; Anxiety disorder, unspecified F41.9 and Unspecified personality disorder F60.9 [place] [id number] [place] [address] 13656- 3834 Feb, Anxiety disorder, unspecified F41.9 [facility] [id number] [place] [address] 05657- 3110 Jan, Unspecified episodic mood disorder F39 ; Anxiety disorder, unspecified F41.9 and Unspecified personality disorder F60.9 [facility] [id number] [place] [address] 81218- 5773 Jan, Anxiety F41.9 [facility] [id number] [place] [address] 09183- 9537 Jan, Anxiety disorder, unspecified F41.9 [facility] [id number] [place] [address] 59427- 7230 Dec, Unspecified episodic mood disorder F39 ; Anxiety disorder, unspecified F41.9 and Unspecified personality disorder F60.9 [facility] [id number] [place] [address] 73928- 8885 Dec, Anxiety F41.9 [facility] [id number] [place] [address] 99875- 0560 Dec, Anxiety disorder, unspecified F41.9 [facility] [id number] [place] [address] 81311- 4258 Dec, Unspecified episodic mood disorder F39 ; Anxiety disorder, unspecified F41.9 and Unspecified personality disorder F60.9 [facility] [address] [address]- 0585 Nov, [facility] [id number] [place] [address] 16167- 1630 Nov, [facility] [id number] [place] [address] 74829- 0741 Nov, Unspecified episodic mood disorder F39 ; Anxiety disorder, unspecified F41.9 and Unspecified personality disorder F60.9 [place] [id number] [place] [address] 14280- 8577 Nov, Anxiety disorder, unspecified F41.9 [facility] [id number] [place] [address] 26822- 8484 Oct, Unspecified episodic mood disorder F39 ; Anxiety disorder, unspecified F41.9 and Unspecified personality disorder F60.9 [facility] [id number] [place] [address] 75739- 7204 Oct, Vaginal yeast infection B37.3 [facility] [id number] [place] [address] 46933- 7998 Oct, [facility] [id number] [place] [address] 04569- 3226 Oct, Anxiety disorder, unspecified F41.9 [facility] [id number] [place] [address] 80351- 1263 Oct, Routine gynecological examination Z01.419 ; Screening for breast cancer Z12.31 and Vaginal yeast infection B37.3 [facility] [id number] [place] [address] 36848- 9298 Sep, Unspecified episodic mood disorder F39 ; Anxiety disorder, unspecified F41.9 and Unspecified personality disorder F60.9 [place] [id number] [place] [address] 57503- 4121 Sep, [facility] [id number] [place] [address] 69248- 6848 Sep, Anxiety disorder, unspecified F41.9 [facility] [address] 39472- 9951 Sep, Bronchitis J40 and Stress incontinence of urine N39.3 [place] [address] 98447- 2743 Sep, Stress incontinence of urine N39.3 ; Bronchitis J40 and Anxiety F41.9 [place] [id number] [place] [address] 36795- 9225 Sep, [facility] [id number] [place] [address] 07156- 8072 Sep, Unspecified episodic mood disorder F39 ; Anxiety disorder, unspecified F41.9 and Unspecified personality disorder F60.9 [place] [id number] [place] [address] 48127- 3197 Aug, Anxiety F41.9 ; Stress incontinence of urine N39.3 and Encounter for immunization Z23 [facility] [id number] [place] [address] 93132- 5499 Aug, Anxiety disorder, unspecified F41.9 [facility] [id number] [place] [address] 46984- 6229 Jul, Unspecified episodic mood disorder F39 ; Anxiety disorder, unspecified F41.9 and Unspecified personality disorder F60.9 [place] [id number] [place] [address] 74413- 2071 Jul, [place] [facility] [id number] [place] [address] 94344- 3408 Jul, Unspecified episodic mood disorder F39 ; Anxiety disorder, unspecified F41.9 and Unspecified personality disorder F60.9 [facility] [id number] [place] [address] 61692- 8962 Jul, Anxiety disorder, unspecified F41.9 [facility] [id number] [place] [address] 49548- 8959 Jun, Unspecified episodic mood disorder F39 ; Anxiety disorder, unspecified F41.9 and Unspecified personality disorder F60.9 [facility] [id number] [place] [address] 98507- 8407 Jun, Anxiety disorder, unspecified F41.9 [facility] [id number] [place] [address] 11153- 7630 Jun, Unspecified episodic mood disorder F39 ; Anxiety disorder, unspecified F41.9 and Unspecified personality disorder F60.9 [facility] [id number] [place] [address] 89345- 7307 Jun, [facility] [id number] [place] [address] 44638- 8092 May, Anxiety disorder, unspecified F41.9 [facility] [id number] [place] [address] 96785- 1750 May, Unspecified episodic mood disorder F39 ; Anxiety disorder, unspecified F41.9 and Unspecified personality disorder F60.9 [facility] [id number] [place] [address] 11383- 7222 Apr, Anxiety disorder, unspecified F41.9 [facility] [id number] [address]- 8164 March, Unspecified episodic mood disorder F39 ; Anxiety disorder, unspecified F41.9 and Unspecified personality disorder F60.9 [facility] [address] [address]- 8465 March, Bronchitis J40 [facility] [id number] [address]- 5213 March, Unspecified episodic mood disorder F39 ; Anxiety disorder, unspecified F41.9 and Unspecified personality disorder F60.9 [facility] [address] [place] [address] 76041- 8113 Feb, [facility] [id number] [place] [address] 55482- 6083 Feb, Unspecified episodic mood disorder F39 ; Anxiety disorder, unspecified F41.9 and Unspecified personality disorder F60.9 [facility] [address] [place] [address] 81146- 4118 Feb, Bronchitis J40 [facility] [id number] [place] [address] 15056- 2372 Feb, Unspecified episodic mood disorder F39 ; Anxiety disorder, unspecified F41.9 and Unspecified personality disorder F60.9 [facility] [address] [place] [address] 34964- 3516 Jan, Unspecified episodic mood disorder F39 ; Anxiety disorder, unspecified F41.9 and Unspecified personality disorder F60.9 [facility] [address] [place] [address] 80718- 3608 Jan, Bronchitis J40 [facility] [id number] [place] [address] 72087- 9999 Jan, Unspecified episodic mood disorder F39 ; Anxiety disorder, unspecified F41.9 and Unspecified personality disorder F60.9 [facility] [id number] [place] [address] 72144- 2150 Dec, Anxiety F41.9 [facility] [id number] [place] [address] 02403- 1383 Dec, Unspecified episodic mood disorder F39 ; Anxiety disorder, unspecified F41.9 and Unspecified personality disorder F60.9 [facility] [address] [id number] [id number] Dec, [facility] [address] [address]- 1640 Dec, Unspecified episodic mood disorder F39 ; Anxiety disorder, unspecified F41.9 and Unspecified personality disorder F60.9 [facility] [address] [address]- 1167 Nov, [facility] [id number] [place] [address] 04592- 7841 Oct, Unspecified episodic mood disorder F39 ; Anxiety disorder, unspecified F41.9 and Unspecified personality disorder F60.9 [facility] [id number] [place] [address] 41973- 5531 Oct, [facility] [address] [address] Oct, Acute upper respiratory infection, unspecified J06.9 ; Other viral agents as the cause of diseases classified elsewhere B97.89 and Cough R05 [facility] [address] [address]- 1352 Aug, Unspecified episodic mood disorder F39 ; Anxiety disorder, unspecified F41.9 and Unspecified personality disorder F60.9 [facility] [address] [address]- 1305 Aug, [facility] [address] [address]- 9388 Aug, [facility] [address] [address]- 7109 Aug, [facility] [address] [address]- 7470 Aug, Visit for TB skin test Z11.1 [facility] [address] [address]- 4562 Jul, [facility] [id number] [place] [address] 87434- 9163 Jul, [facility] [address] [facility] [id number] [place] [address]- 2016 Jul, [facility] [address] [facility] [id number] [place] [address]- 4176 Jul, [facility] [id number] [address]- 7926 Jul, [facility] [id number] [place] [address] 08148- 0259 Jul, Unspecified episodic mood disorder F39 ; Anxiety disorder, unspecified F41.9 and Unspecified personality disorder F60.9 [facility] [address] [address]- 3290 Jun, [facility] [address] [address]- 9973 Jun, Unspecified episodic mood disorder F39 ; Anxiety disorder, unspecified F41.9 and Unspecified personality disorder F60.9 [facility] [id number] [address]- 6861 Jun, [facility] [address] [address]- 4585 May, Unspecified episodic mood disorder F39 ; Anxiety disorder, unspecified F41.9 and Unspecified personality disorder F60.9 [facility] [address] [address]- 9966 May, [facility] [id number] [address]- 9507 May, [facility] [address] [address]- 4429 May, Edema, unspecified R60.9 [facility] [id number] [address]- 8667 Apr, [facility] [address] [address]- 0496 Apr, Unspecified episodic mood disorder F39 ; Anxiety disorder, unspecified F41.9 and Unspecified personality disorder F60.9 [place] [id number] [place] [address] 20063- 3148 Apr, Anxiety F41.9 [facility] [id number] [place] [address] 15461- 4948 March, Unspecified episodic mood disorder F39 ; Anxiety disorder, unspecified F41.9 and Unspecified personality disorder F60.9 [place] [id number] [place] [address] 67717- 0882 March, Unspecified episodic mood disorder F39 ; Anxiety disorder, unspecified F41.9 and Unspecified personality disorder F60.9 [place] [id number] [place] [address] 60264- 4158 Feb, Anxiety F41.9 [place] [id number] [place] [address] 42415- 0555 Feb, Unspecified episodic mood disorder F39 ; Anxiety disorder, unspecified F41.9 and Unspecified personality disorder F60.9 [place] [id number] [place] [address] 80473- 9966 Jan, Unspecified episodic mood disorder F39 ; Anxiety disorder, unspecified F41.9 and Unspecified personality disorder F60.9 [place] [address] [place] [address] 92086- 8529 Jan, Unspecified episodic mood disorder F39 ; Anxiety disorder, unspecified F41.9 and Unspecified personality disorder F60.9 [place] [id number] [place] [address] 23795- 9447 Jan, Edema, unspecified R60.9 [facility] [id number] [place] [address] 12492- 3212 Dec, [place] [id number] [place] [address] 03423- 0014 Dec, [place] [address] [address]- 2908 Dec, [place] [facility] [id number] [place] [address] 61466- 2247 Dec, Unspecified episodic mood disorder F39 ; Anxiety disorder, unspecified F41.9 and Unspecified personality disorder F60.9 [place] [id number] [place] [address] 30368- 9014 Nov, [place] [id number] [place] [address] 47558- 7007 Nov, Unspecified episodic mood disorder F39 ; Anxiety disorder, unspecified F41.9 and Unspecified personality disorder F60.9 [place] [address] [place] [address] 19272- 1696 Oct, Unspecified episodic mood disorder F39 ; Anxiety disorder, unspecified F41.9 and Unspecified personality disorder F60.9 [place] [address] [place] [address] 58127- 7720 Oct, Unspecified episodic mood disorder F39 ; Anxiety disorder, unspecified F41.9 and Unspecified personality disorder F60.9 [place] [address] [place] [address] 24462- 9731 Sep, Unspecified episodic mood disorder F39 ; Anxiety disorder, unspecified F41.9 and Unspecified personality disorder F60.9 [place] [address] [place] [address] 13370- 5443 Sep, Encounter for immunization Z23 [place] [id number] [place] [address] 45891- 5607 10 Sep, 2015 Edema of left lower extremity R60.0 [place] [address] [place] [address] 20855- 5670 Aug, Unspecified episodic mood disorder F39 ; Anxiety disorder, unspecified F41.9 and Unspecified personality disorder F60.9 [place] [address] [address]- 3373 Aug, [facility] [id number] [place] [address] 86287- 3910 Aug, Edema of left lower extremity R60.0 [facility] [id number] [place] [address] 00414- 6608 Aug, [facility] [id number] [place] [address] 48908- 6872 Aug, Unspecified episodic mood disorder F39 ; Anxiety disorder, unspecified F41.9 and Unspecified personality disorder F60.9 [facility] [id number] [place] [address] 67212- 7134 Jul, Unspecified episodic mood disorder 296.90 ; Anxiety disorder , unspecified 300.00 and Unspecified personality disorder 301.9 [facility] [id number] [place] [address] 58369- 9855 Jul, Unspecified episodic mood disorder 296.90 ; Anxiety disorder , unspecified 300.00 and Unspecified personality disorder 301.9 [facility] [id number] [place] [address] 30082- 8306 Jul, [facility] [id number] [place] [address] 98962- 7533 Jun, Unspecified episodic mood disorder 296.90 ; Anxiety disorder , unspecified 300.00 and Unspecified personality disorder 301.9 [facility] [id number] [place] [address] 08172- 4092 May, Unspecified episodic mood disorder 296.90 ; Anxiety disorder , unspecified 300.00 and Unspecified personality disorder 301.9 [facility] [address] [place] [address] 24850- 1520 May, Anxiety disorder, unspecified 300.00 [facility] [address] [address]- 4345 May, Anxiety disorder, unspecified 300.00 and Edema 782.3 [facility] [address] [address]- 0858 May, Unspecified episodic mood disorder 296.90 ; Anxiety disorder , unspecified 300.00 and Unspecified personality disorder 301.9 [facility] [address] [place] [address] 15569- 7414 Apr, [facility] [id number] [place] [address] 78615- 9909 Apr, Unspecified episodic mood disorder 296.90 ; Anxiety disorder , unspecified 300.00 and Personality disorder, unspecified 301.9 [facility] [id number] [place] [address] 45340- 7829 Apr, Unspecified episodic mood disorder 296.90 ; Anxiety disorder , unspecified 300.00 and Unspecified personality disorder 301.9 [facility] [id number] [place] [address] 20408- 8220 March, [facility] [id number] [place] [address] 16971- 6475 March, Unspecified episodic mood disorder 296.90 ; Anxiety disorder , unspecified 300.00 and Unspecified personality disorder 301.9 [facility] [address] [place] [address] 39524- 5462 March, Unspecified episodic mood disorder 296.90 ; Anxiety disorder 300.00 and Unspecified personality disorder 301.9 [facility] [address] [place] [address] 04847- 8728 March, [facility] [address] [place] [address] 59439- 9256 March, [facility] [id number] [place] [address] 53572- 6984 Feb, [facility] [address] [place] [address] 57499- 7956 Feb, [facility] [id number] [place] [address] 45869- 9386 Feb, [facility] [place] [facility] [address] [id number] [place] [address]- 3545 Jan, [facility] [place] [facility] [address] [id number] [place] [address]- 3356 Jan, [facility] [place] [facility] [address] [id number] [place] [address]- 1365 Jan, [facility] [place] [facility] [address] [id number] [place] [address]- 4088 Jan, [facility] [place] [facility] [address] [id number] [place] [address]- 0867 Jan, [facility] [place] [facility] [address] [facility] [id number] [place] [address]- 9462 Jan, [facility] [place] [facility] [address] [facility] [id number] [place] [id number] Jan, [facility] [place] [facility] [address] [id number] [address]- 9802 Jan, [facility] [place] [facility] [address] [id number] [place] [address]- 9151 Jan, [facility] [place] [facility] [address] [facility] [id number] [place] [address]- 2622 Jan, [facility] [place] [facility] [address] [id number] [place] [address]- 1564 Jan, [facility] [place] [facility] [address] [id number] [address]- 2971 Jan, [facility] [place] [facility] [address] [id number] [place] [address]- 1432 Jan, [facility] [place] [facility] [address] [facility] [id number] [place] [address]- 3626 Jan, [facility] [place] [facility] [address] [facility] [id number] [place] [address]- 8495 Jan, [facility] [place] [facility] [address] [id number] [place] [address]- 0661 Jan, [facility] [address] [id number] [place] [address]- 2206 Dec, 2014 [facility] [place] [facility] [address] [id number] [place] [address]- 1846 Dec, 2014 [facility] [place] [facility] [address] [id number] [place] [address]- 6797 Dec, 2014 [facility] [place] [facility] [address] [id number] [place] [address]- 5025 Dec, [facility] [place] [facility] [address] [id number] [place] [address]- 2092 Nov, [facility] [place] [facility] [address] [id number] [place] [address]- 9365 Nov, [facility] [place] [facility] [address] [id number] [place] [address]- 2361 Nov, [facility] [address] [id number] [place] [address]- 2023 Nov, [facility] [place] [facility] [address] [id number] [place] [address] Oct, [facility] [place] [facility] [address] [id number] [place] [address] Oct, [facility] [place] [facility] [address] [id number] [place] [address] Oct, [facility] [place] [facility] [address] [id number] [place] [address] Oct, [facility] [place] [facility] [address] [id number] [place] Oct, [facility] [place] [facility] [address] [id number] [place] Oct, [facility] [place] [facility] [address] [id number] [place] [address] Oct, [facility] [place] [facility] [address] [id number] [place] [address] Oct, [facility] [place] [facility] [address] [id number] [place] [address] Oct, [facility] [place] [facility] [address] [id number] [place] [address] Oct, [facility] [facility] [address] [id number] [place] [address] Oct, [facility] [place] [facility] [address] [id number] [place] [address]247 Oct, [facility] [place] [facility] [address] [id number] [place] [address] 3096 Oct, [facility] [place] [facility] [address] [id number] [place] [address] Oct, [facility] [place] [facility] [address] [id number] [place] [address]- 0988 Oct, [facility] [place] [facility] [address] [id number] [place] [address]- 3816 Oct, [facility] [place] [facility] [address] [id number] [place] [address]- 7089 Sep, [facility] [place] [facility] [address] [id number] [place] [address]- 6361 Sep, [facility] [place] [facility] [address] [id number] [place] [address]- 3685 Sep, [facility] [place] [facility] [address] [id number] [place] [address]- 7960 Sep, [facility] [place] [facility] [address] [id number] [place] [address]- 7906 Sep, [facility] [place] [facility] [address] [id number] [place] [address]- 0824 Sep, [facility] [place] [facility] [address] [id number] [place] [address]- 7595 Sep, [facility] [place] [facility] [address] [id number] [place] [address]- 3077 Sep, [facility] [place] [facility] [address] [id number] [place] [address]- 2503 Sep, [facility] [place] [facility] [address] [id number] [place] [address]- 6085 Sep, [facility] [place] [facility] [address] [id number] [place] [address]- 7737 30 Aug, 2014 [facility] [place] [facility] [address] [id number] [place] [address]- 6414 30 Aug, 2014 [facility] [place] [facility] [address] [id number] [place] [address]- 6852 Aug, [facility] [place] [facility] [address] [id number] [place] [address]- 6531 14 Aug, 2014 [facility] [place] [facility] [address] [id number] [place] [address]- 8964 Aug, [facility] [place] [facility] [address] [id number] [place] [address]- 3242 Aug, [facility] [place] [facility] [address] [facility] [id number] [place] [address]- 0235 Aug, [facility] [place] [facility] [address] [id number] [place] [address]- 0515 Aug, [facility] [place] [facility] [address] [id number] [place] [address]- 5461 29 Jul, 2014 [facility] [place] [facility] [address] [id number] [place] [address]- 0944 29 Jul, 2014 [facility] [place] [facility] [address] [id number] [place] [address]- 8372 05 Jul, 2014 [facility] [place] [facility] [address] [facility] [id number] [place] [address]- 5665 05 Sep, 2013 [facility] [place] [facility] [address] [id number] [place] [address]- 1224 Jul, [facility] [place] [facility] [address] [id number] [place] [address]- 8960 Jul, [facility] [place] [facility] [address] [id number] [place] [address]- 2822 Jun, [facility] [place] [facility] [address] [id number] [place] [address]- 5668 Jun, [facility] [place] [facility] [address] [id number] [place] [address]- 2195 May, [facility] [place] [facility] [address] [id number] [place] [address]- 1597 May, [facility] [place] [address] [id number] [place] [address]- 4078 May, [facility] [address] [id number] [place] [address]- 6474 May, [facility] [place] [facility] [address] [id number] [place] [address]- 7156 May, [facility] [place] [facility] [address] [id number] [place] [address]- 6064 May, [facility] [place] [facility] [address] [id number] [place] [address]- 1182 May, [facility] [place] [facility] [address] [id number] [place] [address]- 6244 May, [facility] [place] [facility] [address] [id number] [place] [address]- 7128 Apr, [facility] [address] [id number] [place] [address]- 9557 Apr, [facility] [place] [address] [id number] [place] [address]- 9617 March, [facility] [place] [facility] [address] [id number] [place] [address]- 6363 March, [facility] [address] [id number] [place] [address]- 2112 Feb, [facility] [address] [id number] [place] [address]- 6523 Feb, [facility] [place] [facility] [address] [id number] [place] [address]- 0840 Feb, [facility] [address] [id number] [place] [address]- 4864 Feb, [facility] [address] [id number] [place] [address]- 9325 Feb, [facility] [address] [id number] [place] [address]- 8368 Feb, [facility] [address] [id number] [place] [address]- 8754 Feb, [facility] [address] [id number] [place] [address]- 9167 Feb, [facility] [address] [id number] [place] [address]- 2959 Feb, [facility] [address] [id number] [place] [address]- 0660 Feb, [facility] [address] [id number] [place] [address]- 4025 Jan, [facility] [address] [id number] [address]- 8332 Jan, [facility] [address] [id number] [place] [address]- 8309 Jan, [facility] [address] [id number] [place] [address]- 3066 Jan, [facility] [place] [address] [id number] [place] [address]- 2894 Jan, [facility] [address] [id number] [place] [address]- 8500 Dec, [facility] [address] [id number] [place] [address]- 7946 Dec, [facility] [address] [id number] [place] [address]- 9246 Dec, [facility] [address] [id number] [place] [address]- 3186 Dec, [facility] [address] [id number] [place] [address]- 2548 Dec, [facility] [address] [id number] [place] [address]- 8777 Dec, [facility] [address] [id number] [place] [address]- 2674 Nov, [facility] [address] [id number] [place] [address]- 0212 Nov, [facility] [address] [id number] [place] [address]- 6470 Nov, [facility] [address] [id number] [place] [address]- 2976 Nov, [facility] [address] [id number] [place] [address]- 6044 Nov, [facility] [address] [id number] [place] [address]- 5898 Nov, [facility] [address] [id number] [place] [address]- 8363 Nov, [facility] [address] [id number] [place] [address]- 3981 Nov, [facility] [address] [id number] [place] [address]- 2546 Oct, [facility] [address] [id number] [place] [address]- 6567 Oct, [facility] [address] [id number] [place] [address]140 Oct, [facility] [address] [id number] [place] [address]- 4783 Oct, [facility] [facility] [address] [facility] [id number] [place] [address]- 2735 Oct, [facility] [address] [id number] [place] [address]- 9699 Oct, [facility] [address] [id number] [place] [address]- 9872 Oct, [facility] [address] [id number] [place] [address]- 8150 Oct, [facility] [address] [id number] [place] [address]- 1664 Sep, [facility] [address] [id number][place] [address]- 8667 Sep, [facility] [address] [id number] [place] [address]- 7165 Sep, [facility] [address] [facility] [id number] [address]- 5154 14 Sep, 2013 [facility] [address] [id number] [address]- 0321 07 Sep, 2013 [facility] [address] [id number][place] [address]- 1591 07 Sep, 2013 [facility] [address] [id number] [address]- 1030 Sep, [facility] [address] [id number], [place] [address]- 2492 04 Sep, 2013 [facility] [address] [facility] [id number][place] [address]- 0777 10 Aug, 2013 [facility] [address] [id number] [place] [address]- 7515 Aug, [facility] [address] [id number] [place] [address]- 2606 Aug, [facility] [address] [id number] [place] [address]- 1471 Jul, [facility] [address] [id number] [place] [address]- 3400 Jun, [facility] [address] [id number] [place] [address]- 3506 Jun, [facility] [address] [id number] [place] [address]- 1848 Jun, [facility] [address] [id number] [place] [address]- 5311 Jun, [facility] [address] [id number] [place] [address]- 5229 Jun, [facility] [address] [id number] [place] [address]- 4673 May, [facility] [address] [id number] [place] [address]- 7600 May, [facility] [address] [id number] [place] [address]- 0532 Apr, [facility] [address] [id number] [place] [address]- 7895 Apr, [facility] [address] [id number] [place] [address]- 4674 March, [facility] [address] [id number] [place] [address]- 0462 March, [facility] [address] [id number] [place] [address]- 4586 March, [facility] [address] [id number] [place] [address]- 0123 March, [facility] [address] [id number] [place] [address]- 7351 March, [facility] [address] [id number] [place] [address]- 9818 Feb, [facility] [address] [id number] [place] [address]- 8256 Feb, [facility] [address] [id number] [place] [address]- 8554 Feb, [facility] [address] [id number] [place] [address]- 0047 Jan, [facility] [address] [id number] [place] [address]- 1415 Dec, [facility] [address] [id number] [place] [address]- 6110 Dec, [facility] [address] [id number] [place] [address]- 9210 Dec, [facility] [address] [id number] [place] [address]- 8508 Dec, [facility] [address] [id number] [place] [address]- 0204 Nov, [facility] [address] [id number] [place] [address]- 7006 Nov, [facility] [address] [id number][place] [address]- 6850 Nov, [facility] [address] [id number] [place] [address]- 5429 Nov, [facility] [address] [id number] [place] [address]- 1766 Oct, [facility] [address] [id number] [place] [address]- 1774 Oct, [facility] [address] [id number][place] [address]- 6202 Oct, [facility] [address] [id number] [place] [address]- 7781 Oct, [facility] [address] [id number] [place] [address]- 1324 Sep, [facility] [address] [facility] [id number] [place] [address]- 8536 14 Sep, 2012 [facility] [address] [id number] [place] [address]- 5709 Sep, [facility] [address] [facility] [id number] [place] [address], [place] [address]- 2591 Sep, [facility] [address] [facility] [id number] [place] [address]- 7926 Sep, [facility] [id number] [place] [address]- 0927 Sep, [facility] [address] [facility] [id number] [place] [address]- 6363 Aug, [facility] [address] [id number] [place] [address]- 8023 Aug, [facility] [address] [id number] [place] [address]- 4328 Aug, [facility] [address] [facility] [id number][place] [address]- 3286 Jul, [facility] [address] [facility] [id number][place] [address]- 7743 Jul, [facility] [facility] [address] [facility] [id number] [place] [address]- 5229 Jun, [facility] [address] [facility] [id number][place] [address]- 0608 May, [facility] [place] [facility] [address] [id number] [address]- 5092 May, [facility] [place] [facility] [address] [id number] [place] [address]- 8960 Apr, [facility] [place] [facility] [address] [id number] [place] [address]- 0738 Apr, [facility] [place] [facility] [address] [id number] [place] [address]- 2529 March, [facility] [place] [facility] [address] [id number] [place] [address]- 3047 March, [facility] [place] [facility] [address] [id number] [place] [address]- 7164 Feb, [facility] [place] [facility] [address] [id number] [place] [address]- 1859 16 Feb, 2012 [facility] [place] [facility] [address] [id number] [place] [address]- 1400 Feb, [facility] [place] [facility] [address] [id number] [place] [address]- 7313 Feb, [facility] [place] [facility] [address] [id number] [place] [address]- 3073 Jan, [facility] [place] [facility] [address] [id number] [place] [address]- 4785 Jan, [facility] [place] [facility] [address] [facility] [id number] [place] [address]- 9767 Dec, [facility] [place] [facility] [address] [id number] [place] [address]- 8921 Dec, [facility] [place] [facility] [address] [id number] [place] [address]- 8830 Dec, [facility] [place] [facility] [address] [id number] [place] [address]- 1788 23 Dec, 2011 [facility] [place] [facility] [address] [id number] [place] [address]- 1299 20 Dec, 2011 [facility] [place] [facility] [address] [id number] [place] [address]- 6974 15 Dec, 2011 [facility] [address] [id number] [place] [address]- 3016 10 Dec, 2011 [facility] [place] [facility] [address] [id number] [place] [address]- 7246 09 Dec, 2011 [facility] [place] [facility] [address] [id number] [place] [address]- 3796 08 Dec, 2011 [facility] [place] [facility] [address] [id number] [place] [address]- 6688 07 Dec, 2011 [facility] [place] [facility] [address] [id number] [place] [address]- 3653 Dec, [facility] [place] [facility] [address] [id number] [place] [address]- 8555 Dec, [facility] [address] [id number] [place] [address]- 3903 Dec, [facility] [address] [id number] [place] [address]- 9505 Nov, [facility] [place] [facility] [address] [id number] [place] [address]- 4228 Nov, [facility] [address] [id number] [place] [address]- 9834 Nov, [facility] [facility] [address] [id number] [place] [address]- 9843 Nov, [facility] [facility] [address] [id number] [place] [address]- 7794 Nov, [facility] [place] [facility] [address] [id number] [place] [address]- 1376 Nov, [facility] [place] [facility] [address] [id number] [place] [address]- 6322 Oct, [facility] [place] [facility] [address] [id number] [place] [address]- 6128 Oct, [facility] [place] [facility] [address] [id number] [place] [address]- 8089 Sep, [facility] [address] [id number] [place] [address]- 1234 29 Sep, 2011 [facility] [place] [facility] [address] [id number] [place] [address]- 7682 Sep, [facility] [place] [facility] [address] [id number] [place] [address]- 9771 Sep, [facility] [address] [id number] [place] [address]- 2503 Sep, [facility] [place] [facility] [address] [id number] [place] [address]- 2293 March, [facility] [address] [id number] [place] [address]- 8281 Oct, [facility] [address] [id number] [place] [address]- 1542 Oct, [facility] [address] [id number] [place] [address]- 7220 Oct, [facility] [place] [facility] [address] [id number] [place] [address]- 6775 24 Sep, 2010 [facility] [place] [facility] [address] [id number] [place] [address]- 6244 17 Sep, 2010 [facility] [place] [facility] [address] [id number][place] [address]- 8325 17 Sep, 2010 [facility] [place] [facility] [address] [id number] [place] [address]- 6017 16 Sep, 2010 [facility] [place] [facility] [address] [id number] [place] [address]- 9765 Aug, [facility] [place] [facility] [address] [id number] [place] 6385 Oct, [facility] [place] [facility] [address] [id number] [place] [address]- 2546 Oct, [facility] [address] [facility] [id number] [place] [address]- 2546 May, IMMUNIZATIONS No Known Immunizations SOCIAL HISTORY Never Assessed REASON FOR VISIT f/u PLAN OF CARE Activity Details Follow Up Next available Reason: F/U VITAL SIGNS MEDICATIONS Unknown Medications RESULTS No Results PROCEDURES Procedure Date Ordered Result Body Site Psychotherapy, patient &/family, 45 minutes, established patient March 01, 2018 INSTRUCTIONS MEDICATIONS ADMINISTERED No Known Medications MEDICAL (GENERAL) HISTORY Type Description Date Medical History hypertension Medical History panic attacks Surgical History cholecystectomy 2008 Hospitalization History surgery
--- OUTSIDE RECORDS SUMMARY | 2018-12-11 10:23 | XMS REPORT ---
Author Author LEIDA ANDINO Organization [facility] Address [address] [place] [address] Care Team Providers Care Intelligence Agent Name Role Phone LEIDA ANDINO Unavailable PROBLEMS Type Condition ICD9-CM Code [id number] Code Onset Dates Condition Status SNOMED Code Problem Stress incontinence of urine N39.3 Active 98645282 Problem Anxiety F41.9 Active 91637297 Problem Anxiety disorder, unspecified F41.9 Active [id number] Problem Unspecified episodic mood disorder F39 Active 960293974 Problem Unspecified personality disorder F60.9 Active [id number] ALLERGIES No Information ENCOUNTERS Encounter Location Date Diagnosis [facility] [id number] [place] [address] 22668- 4392 May, [facility] [id number] [place] [address] 28286- 9132 Apr, Anxiety disorder, unspecified F41.9 [facility] [id number] [place] [address] 44244- 3346 Apr, Unspecified episodic mood disorder F39 ; Anxiety disorder, unspecified F41.9 and Unspecified personality disorder F60.9 [place] [facility] [id number] [place] [address] 18823- 2605 March, Anxiety disorder, unspecified F41.9 [place] [id number] [place] [address] 05978- 5149 March, Unspecified episodic mood disorder F39 ; Anxiety disorder, unspecified F41.9 and Unspecified personality disorder F60.9 [place] [id number] [place] [address] 83053- 6898 March, Anxiety disorder, unspecified F41.9 [facility] [id number] [place] [address] 30403- 5664 Feb, Unspecified episodic mood disorder F39 ; Anxiety disorder, unspecified F41.9 and Unspecified personality disorder F60.9 [facility] [id number] [place] [address] 33184- 0066 Feb, Unspecified episodic mood disorder F39 ; Anxiety disorder, unspecified F41.9 and Unspecified personality disorder F60.9 [facility] [id number] [place] [address] 37211- 9872 Feb, Anxiety disorder, unspecified F41.9 [facility] [id number] [place] [address] 85838- 0085 Jan, Unspecified episodic mood disorder F39 ; Anxiety disorder, unspecified F41.9 and Unspecified personality disorder F60.9 [facility] [id number] [place] [address] 94255- 0036 Jan, Anxiety F41.9 [facility] [id number] [place] [address] 30456- 9741 Jan, Anxiety disorder, unspecified F41.9 [facility] [id number] [place] [address] 27555- 2093 Dec, Unspecified episodic mood disorder F39 ; Anxiety disorder, unspecified F41.9 and Unspecified personality disorder F60.9 [facility] [id number] [place] [address] 26755- 4241 Dec, Anxiety F41.9 [facility] [id number] [place] [address] 18856- 4601 Dec, Anxiety disorder, unspecified F41.9 [facility] [id number] [place] [address] 77007- 2998 Dec, Unspecified episodic mood disorder F39 ; Anxiety disorder, unspecified F41.9 and Unspecified personality disorder F60.9 [facility] [place] [id number] [place] [address] 68894- 8420 Nov, [facility] [address] [address]- 2435 Nov, [facility] [id number] [place] [address] 91767- 2456 Nov, Unspecified episodic mood disorder F39 ; Anxiety disorder, unspecified F41.9 and Unspecified personality disorder F60.9 [facility] [id number] [place] [address] 63707- 5913 Nov, Anxiety disorder, unspecified F41.9 [facility] [id number] [place] [address] 67829- 3033 Oct, Unspecified episodic mood disorder F39 ; Anxiety disorder, unspecified F41.9 and Unspecified personality disorder F60.9 [facility] [address] [address]- 7868 Oct, Vaginal yeast infection B37.3 [facility] [address] [address]- 5714 Oct, [facility] [id number] [place] [address] 11404- 2020 Oct, Anxiety disorder, unspecified F41.9 [facility] [address] [address]- 9762 Oct, Routine gynecological examination Z01.419 ; Screening for breast cancer Z12.31 and Vaginal yeast infection B37.3 [facility] [address] [address]- 0693 Sep, Unspecified episodic mood disorder F39 ; Anxiety disorder, unspecified F41.9 and Unspecified personality disorder F60.9 [facility] [address], [place] [address]- 0719 Sep, [facility] [address], [place] [address]- 6341 Sep, Anxiety disorder, unspecified F41.9 [facility] [id number] [place] [address] 22599- 0538 Sep, Bronchitis J40 and Stress incontinence of urine N39.3 [facility] [address] 76833- 0060 Sep, Stress incontinence of urine N39.3 ; Bronchitis J40 and Anxiety F41.9 [facility] [address] 74236- 2093 Sep, [facility] [address] 28328- 8969 Sep, Unspecified episodic mood disorder F39 ; Anxiety disorder, unspecified F41.9 and Unspecified personality disorder F60.9 [facility] [id number] [place] [address] 38080- 2483 Aug, Anxiety F41.9 ; Stress incontinence of urine N39.3 and Encounter for immunization Z23 [facility] [address] 59579- 3678 Aug, Anxiety disorder, unspecified F41.9 [facility] [address] 27969- 1412 Jul, Unspecified episodic mood disorder F39 ; Anxiety disorder, unspecified F41.9 and Unspecified personality disorder F60.9 [facility] [id number] [place] [address] 87453- 0996 Jul, [facility] [id number] [place] [address] 55946- 9338 Jul, Unspecified episodic mood disorder F39 ; Anxiety disorder, unspecified F41.9 and Unspecified personality disorder F60.9 [facility] [id number] [place] [address] 18070- 3605 Jul, Anxiety disorder, unspecified F41.9 [facility] [id number] [place] [address] 33953- 9885 Jun, Unspecified episodic mood disorder F39 ; Anxiety disorder, unspecified F41.9 and Unspecified personality disorder F60.9 [facility] [address] [place] [address] 28395- 9473 Jun, Anxiety disorder, unspecified F41.9 [facility] [id number] [place] [address] 25794- 2036 Jun, Unspecified episodic mood disorder F39 ; Anxiety disorder, unspecified F41.9 and Unspecified personality disorder F60.9 [facility] [id number] [place] [address] 93674- 1473 Jun, [facility] [id number] [place] [address] 68296- 2892 May, Anxiety disorder, unspecified F41.9 [facility] [id number] [place] [address] 72650- 7968 May, Unspecified episodic mood disorder F39 ; Anxiety disorder, unspecified F41.9 and Unspecified personality disorder F60.9 [facility] [id number] [place] [address] 23000- 4332 Apr, Anxiety disorder, unspecified F41.9 [facility] [id number] [place] [address] 02986- 7174 March, Unspecified episodic mood disorder F39 ; Anxiety disorder, unspecified F41.9 and Unspecified personality disorder F60.9 [facility] [id number] [place] [address] 29799- 2603 March, Bronchitis J40 [facility] [address] [place] [address] 72275- 4557 March, Unspecified episodic mood disorder F39 ; Anxiety disorder, unspecified F41.9 and Unspecified personality disorder F60.9 [facility] [address] [address]- 2957 Feb, [facility] [id number] [place] [address] 60562- 0641 Feb, Unspecified episodic mood disorder F39 ; Anxiety disorder, unspecified F41.9 and Unspecified personality disorder F60.9 [facility] [address] [address]- 8367 Feb, Bronchitis J40 [facility] [address], [place] [address]- 1508 Feb, Unspecified episodic mood disorder F39 ; Anxiety disorder, unspecified F41.9 and Unspecified personality disorder F60.9 [facility] [address], [place] [address]- 0364 Jan, Unspecified episodic mood disorder F39 ; Anxiety disorder, unspecified F41.9 and Unspecified personality disorder F60.9 [facility] [address], [place] [address]- 3565 Jan, Bronchitis J40 [facility] [id number] [place] [address] 32475- 0542 Jan, Unspecified episodic mood disorder F39 ; Anxiety disorder, unspecified F41.9 and Unspecified personality disorder F60.9 [facility] [address], [place] [address]- 2185 Dec, Anxiety F41.9 [facility] [address] [address]- 0047 Dec, Unspecified episodic mood disorder F39 ; Anxiety disorder, unspecified F41.9 and Unspecified personality disorder F60.9 [facility] [id number] [id number] Dec, [facility] [address], [place] [address]- 5154 Dec, Unspecified episodic mood disorder F39 ; Anxiety disorder, unspecified F41.9 and Unspecified personality disorder F60.9 [facility] [address], [place] [address]- 9005 Nov, [facility] [id number] [address]- 5451 Oct, Unspecified episodic mood disorder F39 ; Anxiety disorder, unspecified F41.9 and Unspecified personality disorder F60.9 [facility] [address] [address]- 9427 Oct, [facility] [address], [place] [address] -7118 Oct, Acute upper respiratory infection, unspecified J06.9 ; Other viral agents as the cause of diseases classified elsewhere B97.89 and Cough R05 [facility] [id number] [place] [address] 61563- 1274 Aug, Unspecified episodic mood disorder F39 ; Anxiety disorder, unspecified F41.9 and Unspecified personality disorder F60.9 [facility] [id number] [address]- 3932 Aug, [facility] [id number] [place] [address] 37398- 3905 Aug, [facility] [id number] [place] [address] 89977- 6559 Aug, [facility] [id number] [place] [address] 58673- 1321 Aug, Visit for TB skin test Z11.1 [facility] [address], [place] [address]- 2103 Jul, [facility] [address], [place] [address]- 1683 Jul, [facility] [id number] [place] [address] 37028- 1253 Jul, [facility] [id number] [place] [address] 00332- 8871 Jul, [facility] [address], [place] [address]- 0217 Jul, [facility] [address], [place] [address]- 3682 Jul, Unspecified episodic mood disorder F39 ; Anxiety disorder, unspecified F41.9 and Unspecified personality disorder F60.9 [facility] [address] [facility] [id number] [address]- 2900 Jun, [facility] [address] [address]- 6105 Jun, Unspecified episodic mood disorder F39 ; Anxiety disorder, unspecified F41.9 and Unspecified personality disorder F60.9 [facility] [id number] [address]- 9631 Jun, [facility] [address], [place] [address]- 7264 May, Unspecified episodic mood disorder F39 ; Anxiety disorder, unspecified F41.9 and Unspecified personality disorder F60.9 [facility] [address], [place] [address]- 8918 May, [facility] [address] [address]- 2259 May, [facility] [address], [place] [address]- 0790 May, Edema, unspecified R60.9 [facility] [address], [place] [address]- 2367 Apr, [facility] [address] [address]- 2523 Apr, Unspecified episodic mood disorder F39 ; Anxiety disorder, unspecified F41.9 and Unspecified personality disorder F60.9 [facility] [id number] [address]- 3568 Apr, Anxiety F41.9 [facility] [id number] [address]- 2442 March, Unspecified episodic mood disorder F39 ; Anxiety disorder, unspecified F41.9 and Unspecified personality disorder F60.9 [facility] [id number] [place] [address] 79534- 8535 March, Unspecified episodic mood disorder F39 ; Anxiety disorder, unspecified F41.9 and Unspecified personality disorder F60.9 [facility] [id number] [place] [address] 59072- 8950 Feb, Anxiety F41.9 [facility] [id number] [place] [address] 02793- 6804 Feb, Unspecified episodic mood disorder F39 ; Anxiety disorder, unspecified F41.9 and Unspecified personality disorder F60.9 [facility] [address] [place] [address] 52749- 8431 Jan, Unspecified episodic mood disorder F39 ; Anxiety disorder, unspecified F41.9 and Unspecified personality disorder F60.9 [place] [id number] [place] [address] 77044- 5084 Jan, Unspecified episodic mood disorder F39 ; Anxiety disorder, unspecified F41.9 and Unspecified personality disorder F60.9 [place] [id number] [place] [address] 95653- 8559 Jan, Edema, unspecified R60.9 [facility] [address], [place] [address]- 2878 Dec, [facility] [id number] [place] [address] 42854- 4441 Dec, [facility] [id number] [place] [address] 15902- 6485 Dec, [facility] [id number] [place] [address] 53977- 0282 Dec, Unspecified episodic mood disorder F39 ; Anxiety disorder, unspecified F41.9 and Unspecified personality disorder F60.9 [facility] [id number] [address]- 3526 Nov, [facility] [id number] [place] [address] 84318- 1336 Nov, Unspecified episodic mood disorder F39 ; Anxiety disorder, unspecified F41.9 and Unspecified personality disorder F60.9 [facility] [address] [place] [address] 52152- 1203 Oct, Unspecified episodic mood disorder F39 ; Anxiety disorder, unspecified F41.9 and Unspecified personality disorder F60.9 [facility] [id number] [place] [address] 61810- 1208 Oct, Unspecified episodic mood disorder F39 ; Anxiety disorder, unspecified F41.9 and Unspecified personality disorder F60.9 [place] [id number] [place] [address] 74934- 4540 Sep, Unspecified episodic mood disorder F39 ; Anxiety disorder, unspecified F41.9 and Unspecified personality disorder F60.9 [place] [id number] [place] [address] 10743- 0295 Sep, Encounter for immunization Z23 [facility] [id number] [place] [address] 22355- 8011 Sep, Edema of left lower extremity R60.0 [facility] [address] [place] [address] 17752- 8464 Aug, Unspecified episodic mood disorder F39 ; Anxiety disorder, unspecified F41.9 and Unspecified personality disorder F60.9 [facility] [address] [address]- 5103 Aug, [facility] [id number] [place] [address] 50522- 2644 Aug, Edema of left lower extremity R60.0 [facility] [address] [address]- 6948 Aug, [facility] [address] [address]- 4618 Aug, Unspecified episodic mood disorder F39 ; Anxiety disorder, unspecified F41.9 and Unspecified personality disorder F60.9 [facility] [address] [address]- 6227 Jul, Unspecified episodic mood disorder 296.90 ; Anxiety disorder , unspecified 300.00 and Unspecified personality disorder 301.9 [facility] [id number] [place] [address] 53707- 6443 Jul, Unspecified episodic mood disorder 296.90 ; Anxiety disorder , unspecified 300.00 and Unspecified personality disorder 301.9 [facility] [id number] [place] [address] 86875- 9336 Jul, [facility] [id number] [place] [address] 48253- 8187 Jun, Unspecified episodic mood disorder 296.90 ; Anxiety disorder , unspecified 300.00 and Unspecified personality disorder 301.9 [facility] [address] [place] [address] 55611- 7471 May, Unspecified episodic mood disorder 296.90 ; Anxiety disorder , unspecified 300.00 and Unspecified personality disorder 301.9 [facility] [address], [place] [address]- 1711 May, Anxiety disorder, unspecified 300.00 [facility] [id number] [place] [address] 67031- 8972 May, Anxiety disorder, unspecified 300.00 and Edema 782.3 [facility] [address] [place] [address] 68932- 2715 May, Unspecified episodic mood disorder 296.90 ; Anxiety disorder , unspecified 300.00 and Unspecified personality disorder 301.9 [facility] [address], [place] [address]- 7868 Apr, [facility] [id number] [address]- 4126 Apr, Unspecified episodic mood disorder 296.90 ; Anxiety disorder , unspecified 300.00 and Personality disorder, unspecified 301.9 [facility] [address] [address]- 2875 Apr, Unspecified episodic mood disorder 296.90 ; Anxiety disorder , unspecified 300.00 and Unspecified personality disorder 301.9 [facility] [id number] [place] [address] 14837- 7677 March, [facility] [address] [place] [address] 71931- 9462 March, Unspecified episodic mood disorder 296.90 ; Anxiety disorder , unspecified 300.00 and Unspecified personality disorder 301.9 [facility] [address] [address]- 5226 March, Unspecified episodic mood disorder 296.90 ; Anxiety disorder 300.00 and Unspecified personality disorder 301.9 [facility] [address], [place] [address]- 9828 March, [facility] [id number] [place] [address] 05638- 0117 March, [facility] [address], [place] [address]- 3675 Feb, [facility] [address] [address]- 9656 Feb, [facility] [address] [address]- 8473 Feb, [facility] [id number] 8179 Jan, [facility] [address] [address] 7319 Jan, [facility] [address], [place] [address]- 0811 Jan, [facility] [place] [facility] [address] [id number] [place] [address]- 9423 Jan, [facility] [place] [facility] [address] [id number] [place] [address]- 6086 Jan, 2014 [facility] [place] [facility] [address] [facility] [id number] [place] [address]- 1766 Jan, 2014 [facility] [place] [facility] [address] [facility] [id number] [place] [id number] Jan, 2014 [facility] [place] [facility] [address] [id number] [place] [address]- 5056 Jan, 2014 [facility] [place] [facility] [address] [id number] [place] [address]- 2074 Jan, 2014 [facility] [place] [facility] [address] [facility] [id number] [place] [address]- 7207 Jan, 2014 [facility] [place] [facility] [address] [id number] [place] [address]- 4284 Jan, 2014 [facility] [place] [facility] [address] [id number] [place] [address]- 8335 Jan, [facility] [place] [facility] [address] [facility] [id number] [place] [address]- 4846 Jan, 2014 [facility] [place] [facility] [address] [facility] [id number] [place] [address]- 2317 Jan, 2014 [facility] [place] [facility] [address] [id number] [address]- 3857 Jan, 2014 [facility] [place] [facility] [address] [id number] [place] [address]- 8118 Jan, [facility] [place] [facility] [address] [id number] [place] [address]- 0895 Dec, [facility] [place] [facility] [address] [facility] [id number] [address]- 2999 Dec, [facility] [place] [facility] [address] [facility] [id number] [address]- 4504 Dec, 2014 [facility] [address] [id number] [place] 4670 Dec, [facility] [address] [id number] [place] [address]- 4814 Nov, [facility] [address] [id number] [place] [address]- 7949 Nov, [facility] [address] [id number] [place] [address]- 9568 Nov, [facility] [address] [id number] [place] [address]- 9408 Nov, [facility] [address] [id number] [place] [address]- 9565 Oct, [facility] [address] [id number] [place] [address] Oct, [facility] [address] [id number] [place] [address] Oct, [facility] [address] [id number] [place] [address] Oct, [facility] [address] [id number] [place] [address] Oct, [facility] [address] [id number] [place] [address] Oct, [facility] [place] [facility] [address] [id number] [place] [address] Oct, [facility] [place] [facility] [address] [id number] [place] [address] Oct, [facility] [place] [facility] [address] [id number] [place] [address] Oct, [facility] [place] [facility] [address] [id number] [place] [address] Oct, [facility] [place] [facility] [address] [id number] [place] [address] Oct, [facility] [place] [facility] [address] [address] [id number] [place] [address] Oct, [facility] [place] [facility] [address] [id number] [place] [address] 5824 Oct, [facility] [place] [facility] [address] [id number] [place] [address] 9100 Oct, [facility] [place] [facility] [address] [id number] [place] [address] 7628 Oct, [facility] [place] [facility] [address] [id number] [place] [address] 3638 Oct, [facility] [place] [facility] [address] [id number] [place] [address] 9300 Sep, [facility] [place] [facility] [address] [id number] [place] [address] 3849 Sep, [facility] [place] [facility] [address] [id number] [place] [address] 6447 Sep, [facility] [place] [facility] [address] [id number] [place] [address] 8300 Sep, [facility] [place] [facility] [address] [id number] [place] [address] 3796 Sep, [facility] [place] [facility] [address] [id number] [place] [address]- 8745 14 Sep, 2014 [facility] [place] [facility] [address] [id number] [place] [address]- 5693 Sep, [facility] [place] [facility] [address] [id number] [place] [address]- 1799 Sep, [facility] [place] [facility] [address] [id number] [place] [address]- 3994 Sep, [facility] [place] [facility] [address] [id number] [place] [address]- 3955 Sep, [facility] [place] [facility] [address] [id number] [place] [address]- 6914 Aug, [facility] [place] [facility] [address] [id number] [place] [address]- 4428 30 Aug, 2014 [facility] [place] [facility] [address] [id number] [place] [address]- 8559 Aug, [facility] [place] [facility] [address] [id number] [place] [address]- 5604 Aug, [facility] [place] [facility] [address] [id number] [place] [address]- 4155 Aug, [facility] [place] [facility] [address] [id number] [place] [address]- 7508 Aug, [facility] [place] [facility] [address] [id number] [place] [address]- 8440 Aug, [facility] [place] [facility] [address] [id number] [address]- 2387 Aug, [facility] [place] [facility] [address] [id number] [place] [address]- 3126 29 Jul, 2014 [facility] [place] [facility] [address] [id number] [place] [address]- 0123 29 Jul, 2014 [facility] [place] [facility] [address] [id number] [address] 1330 Jul, 2013 [facility] [place] [facility] [address] [id number], [place] [address]- 3873 05 Jul, 2013 [facility] [place] [facility] [address] [id number] [place] [address]- 9993 Jul, [facility] [place] [facility] [address] [id number] [address]- 7532 05 Jul, 2013 [facility] [place] [facility] [address] [id number] [address]- 9704 Jun, [facility] [place] [facility] [address] [id number] [place] [address]- 3692 Jun, [facility] [place] [facility] [address] [id number] [place] [address]- 6852 May, [facility] [place] [facility] [address] [id number] [place] [address]- 4553 May, [facility] [place] [facility] [address] [id number] [place] [address]- 8985 May, [facility] [place] [facility] [address] [id number] [place] [address]- 8401 May, [facility] [place] [facility] [address] [id number] [place] [address]- 7222 May, [facility] [place] [facility] [address] [id number] [place] [address]- 7479 May, [facility] [place] [facility] [address] [id number] [place] [address]- 5574 May, [facility] [place] [facility] [address] [id number] [place] [address]- 4099 May, [facility] [place] [facility] [address] [id number] [place] [address]- 6237 Apr, [facility] [place] [facility] [address] [id number] [place] [address]- 3821 Apr, [facility] [place] [facility] [address] [id number] [place] [address]- 9215 March, [facility] [place] [facility] [address] [id number] [place] [address]- 2202 March, [facility] [place] [facility] [address] [id number] [place] [address]- 8014 Feb, [facility] [place] [facility] [address] [id number] [place] [address]- 8224 Feb, [facility] [place] [facility] [address] [id number] [place] [address]- 6522 Feb, [facility] [place] [facility] [address] [id number] [place] [address]- 6741 Feb, [facility] [place] [facility] [address] [id number] [place] [address]- 0030 Feb, [facility] [place] [facility] [address] [id number] [place] [address]- 2631 Feb, [facility] [place] [facility] [address] [id number] [place] [address]- 1637 Feb, [facility] [place] [facility] [address] [id number] [place] [address]- 8283 Feb, [facility] [place] [facility] [address] [id number] [place] [address]- 6277 Feb, [facility] [place] [facility] [address] [id number] [place] [address]- 1760 Feb, [facility] [place] [facility] [address] [id number] [place] [address]- 5072 Jan, [facility] [place] [facility] [address] [id number] [place] [address]- 2825 Jan, [facility] [place] [facility] [address] [id number] [place] [address]- 6668 Jan, [facility] [place] [facility] [address] [id number] [place] [address]- 1684 Jan, [facility] [place] [facility] [address] [id number] [place] [address]- 2211 Jan, [facility] [place] [facility] [address] [id number] [place] [address]- 5068 Dec, [facility] [place] [facility] [address] [id number] [place] [address]- 4714 Dec, [facility] [place] [facility] [address] [id number] [place] [address]- 0922 Dec, [facility] [place] [facility] [address] [id number], [place] [address]- 8851 10 Dec, 2013 [facility] [address] [id number] [place] [address]- 9705 Dec, [facility] [place] [facility] [address] [id number] [place] [address]- 1402 Dec, [facility] [place] [facility] [address] [id number] [place] [address]- 0993 Nov, [facility] [place] [facility] [address] [id number] [place] [address]- 7689 Nov, [facility] [place] [facility] [address] [id number] [place] [address]- 7893 Nov, [facility] [place] [facility] [address] [id number] [place] [address]- 0885 Nov, [facility] [address] [id number] [place] [address]- 3228 Nov, [facility] [place] [facility] [address] [id number] [place] [address]- 3991 Nov, [facility] [place] [facility] [address] [id number] [place] [address]- 1372 Nov, [facility] [place] [facility] [address] [facility] [id number] [place] [address]- 4930 Nov, [facility] [place] [facility] [address] [id number] [place] [address]- 7188 Oct, [facility] [place] [facility] [address] [id number] [place] [address]- 3128 Oct, [facility] [place] [facility] [address] [id number] [place] [address]- 6893 Oct, [facility] [place] [facility] [address] [id number] [place] [address]- 5296 Oct, [facility] [place] [facility] [address] [id number] [place] [address]- 2387 Oct, [facility] [place] [facility] [address] [id number] [place] [address]- 8187 Oct, [facility] [place] [facility] [address] [id number] [place] [address]- 8909 Oct, [facility] [place] [facility] [address] [id number] [place] [address]- 4538 Oct, [facility] [place] [facility] [address] [id number] [place] [address]- 4427 Sep, [facility] [place] [facility] [address] [id number] [place] [address]- 9156 Sep, [facility] [place] [facility] [address] [id number] [place] [address]- 0626 Sep, [facility] [place] [facility] [address] [id number] [place] [address]- 4033 Sep, [facility] [place] [facility] [address] [id number] [place] [address]- 7135 Sep, [facility] [place] [facility] [address] [id number] [place] [address]- 1404 Sep, [facility] [place] [facility] [address] [id number] [place] [address]- 4132 Sep, [facility] [place] [facility] [address] [id number] [place] [address]- 7586 Sep, [facility] [place] [facility] [address] [id number] [place] [address]- 4444 Aug, [facility] [place] [facility] [address] [id number] [place] [address]- 3328 Aug, [facility] [place] [facility] [address] [id number] [place] [address]- 3512 Aug, [facility] [place] [facility] [address] [id number] [place] [address]- 3478 Jul, [facility] [place] [facility] [address] [id number] [place] [address]- 2656 Jun, [facility] [address] [id number] [place] [address]- 5672 Jun, [facility] [place] [facility] [address] [id number] [place] [address]- 0881 Jun, [facility] [place] [facility] [address] [id number] [place] [address]- 5650 Jun, [facility] [place] [facility] [address] [id number] [place] [address]- 4473 Jun, [facility] [place] [facility] [address] [id number] [place] [address]- 7343 May, [facility] [place] [facility] [address] [id number] [place] [address]- 4770 May, [facility] [place] [facility] [address] [id number] [place] [address]- 0887 Apr, [facility] [place] [facility] [address] [id number] [place] [address]- 5078 Apr, [facility] [place] [facility] [address] [id number] [place] [address]- 2487 March, [facility] [place] [facility] [address] [id number] [place] [address]- 6566 March, [facility] [place] [facility] [address] [id number] [place] [address]- 0167 March, [facility] [place] [facility] [address] [id number] [place] [address]- 7296 March, [facility] [place] [facility] [address] [id number] [place] [address]- 1036 March, [facility] [place] [facility] [address] [id number] [place] [address]- 5697 Feb, [facility] [place] [facility] [address] [id number] [place] [address]- 1659 Feb, [facility] [place] [facility] [address] [id number] [place] [address] 2546 Feb, [facility] [address] [id number] [place] [address]- 0606 Jan, [facility] [place] [facility] [address] [id number] [place] [address]- 8816 Dec, [facility] [address] [id number] [place] [address]- 7366 Dec, [facility] [place] [facility] [address] [id number] [place] [address]- 3976 Dec, [facility] [address] [id number] [place] [address]- 2616 Dec, [facility] [address] [id number] [place] [address]- 2912 Nov, [facility] [address] [id number] [place] [address]- 4124 Nov, [facility] [address] [id number] [place] [address]- 6443 Nov, [facility] [address] [id number] [place] [address]- 7175 Nov, [facility] [address] [id number] [place] [address] Oct, [facility] [place] [facility] [address] [id number] [place] [address]- 1962 Oct, [facility] [address] [id number] [place] [address]- 2546 Oct, [facility] [place] [facility] [address] [id number] [place] [address]- 5546 Oct, [facility] [place] [facility] [address] [id number] [place] [address]- 2546 Sep, [facility] [place] [facility] [address] [id number] [place] [address]- 3259 14 Sep, 2012 [facility] [place] [facility] [address] [id number] [place] [address]- 6392 Sep, [facility] [place] [facility] [address] [id number] [place] [address]- 7193 Sep, [facility] [place] [facility] [address] [id number] [place] [address]- 3577 Sep, [facility] [place] [facility] [address] [id number] [place] [address]- 9532 Sep, [facility] [place] [facility] [address] [id number] [place] [address]- 4484 Aug, [facility] [place] [facility] [address] [id number] [place] [address]- 9805 Aug, [facility] [place] [facility] [address] [facility] [id number] [place] [address]- 1801 Aug, [facility] [place] [facility] [address] [id number] [place] [address]- 2330 Jul, [facility] [place] [facility] [address] [id number] [place] [address]- 6194 Jul, [facility] [place] [facility] [address] [facility] [id number] [address]- 3526 Jun, [facility] [place] [facility] [address] [id number] [address]- 7419 May, [facility] [place] [facility] [address] [id number] [address]- 5847 May, [facility] [place] [facility] [address] [id number] [place] [address]- 4219 Apr, [facility] [place] [facility] [address] [id number], [place] [address]- 0980 Apr, [facility] [place] [facility] [address] [facility] [id number] [place] [address]- 3686 March, [facility] [place] [facility] [address] [id number] [place] [address]- 0938 07 Mar, 2012 [facility] [address] [id number] [place] [address]- 3046 19 Feb, 2012 [facility] [place] [facility] [address] [id number] [place] [address]- 3736 16 Feb, 2012 [facility] [place] [facility] [address] [facility] [id number] [place] [address]- 7536 09 Feb, 2012 [facility] [place] [facility] [address] [id number] [place] [address]- 3876 06 Feb, 2012 [facility] [place] [facility] [address] [id number] [place] [address]- 0457 15 Jan, 2012 [facility] [place] [facility] [address] [id number] [place] [address]- 9076 07 Jan, 2012 [facility] [place] [facility] [address] [id number] [place] [address]- 7976 29 Dec, 2011 [facility] [place] [facility] [address] [id number] [place] [address]- 0642 28 Dec, 2011 [facility] [place] [facility] [address] [id number] [address]- 3000 26 Dec, 2011 [facility] [place] [facility] [address] [facility] [id number] [place] [address]- 4603 23 Dec, 2011 [facility] [place] [facility] [address] [id number] [place] [address] 2546 20 Dec, 2011 [facility] [place] [facility] [address] [id number] [place] [address] 2546 15 Dec, 2011 [facility] [place] [facility] [address] [id number] [place] [address]- 8396 10 Dec, 2011 [facility] [place] [facility] [address] [facility] [id number] [place] [address]- 2546 09 Dec, 2011 [facility] [place] [facility] [id number] [place] [address]- 0395 08 Dec, 2011 [facility] [place] [facility] [address] [id number] [place] [address]- 8207 Dec, [facility] [place] [facility] [address] [id number] [place] [address]- 8846 Dec, [facility] [place] [facility] [address] [id number] [place] [address]- 4426 Dec, [facility] [place] [facility] [address] [id number] [place] [address]- 1269 Dec, [facility] [place] [facility] [address] [id number] [place] [address]- 3875 Nov, [facility] [place] [facility] [address] [id number] [place] [address]- 5769 Nov, [facility] [place] [facility] [address] [id number] [place] [address]- 9424 Nov, [facility] [place] [facility] [address] [id number] [place] [address]- 5996 Nov, [facility] [place] [facility] [address] [id number] [place] [address]- 5805 Nov, [facility] [place] [facility] [address] [id number] [place] [address]- 1459 Nov, [facility] [place] [facility] [address] [id number] [place] [address]- 5841 Oct, [facility] [place] [facility] [address] [id number] [place] [address]- 6737 Oct, [facility] [place] [facility] [address] [id number] [place] [address]- 8537 Sep, [facility] [place] [facility] [address] [id number] [place] [address]- 1688 Sep, [facility] [place] [facility] [address] [id number] [place] [address]- 7944 Sep, [facility] [place] [facility] [id number] [address]- 2546 Sep, [facility] [id number] [address]- 5266 Sep, [facility] [id number] [address]- 2546 March, [facility] [id number] [address]- 4606 Oct, [facility] [address] [facility] [id number] [address]- 2546 Oct, [facility] [id number] [place] [address] 67[address]- 8126 Oct, [facility] [id number] [address]- 0356 Sep, [facility] [id number] [place] [address]- 5626 Sep, [facility] [id number] [address]- 4625 Sep, [facility] [id number] [place] [address]- 6145 Sep, [facility] [id number] [address]- 8006 Aug, [facility] [id number] [address]- 7676 Oct, [facility] [id number] [address]- 2546 Oct, [facility] [id number] [address]- 2016 May, IMMUNIZATIONS No Known Immunizations SOCIAL HISTORY [...]
--- OUTSIDE RECORDS SUMMARY | 2018-12-11 10:23 | XMS REPORT ---
Author Author SANJEEV PHELPS [facility] Address [address] [place] [address] Care Team Providers Care Database Management System Specialist Name Role Phone SANJEEV PHELPS Unavailable PROBLEMS Type Condition ICD9-CM Code BNE27-JC Code Onset Dates Condition Status SNOMED Code Problem Stress incontinence of urine N39.3 Active 04428123 Problem Anxiety F41.9 Active 26593702 Problem Anxiety disorder, unspecified F41.9 Active 627417039 Problem Unspecified episodic mood disorder F39 Active 453003831 Problem Unspecified personality disorder F60.9 Active [id number] ALLERGIES No Information ENCOUNTERS Encounter Location Date Diagnosis [facility] [id number] [place] [address] 45169- 2095 May, [facility] [id number] [place] [address] 83828- 3740 May, [facility] [id number] [place] [address] 35937- 0706 Apr, Anxiety disorder, unspecified F41.9 [facility] [id number] [place] [address] 67067- 4819 Apr, Unspecified episodic mood disorder F39 ; Anxiety disorder, unspecified F41.9 and Unspecified personality disorder F60.9 [facility] [id number] [place] [address] 17796- 4004 March, Anxiety disorder, unspecified F41.9 [facility] [id number] [place] [address] 20080- 3771 March, Unspecified episodic mood disorder F39 ; Anxiety disorder, unspecified F41.9 and Unspecified personality disorder F60.9 [facility] [id number] [place] [address] 19464- 2343 March, Anxiety disorder, unspecified F41.9 [facility] [id number] [place] [address] 08033- 4777 Feb, Unspecified episodic mood disorder F39 ; Anxiety disorder, unspecified F41.9 and Unspecified personality disorder F60.9 [facility] [id number] [place] [address] 98488- 2351 Feb, Unspecified episodic mood disorder F39 ; Anxiety disorder, unspecified F41.9 and Unspecified personality disorder F60.9 [facility] [id number] [place] [address] 70872- 3866 Feb, Anxiety disorder, unspecified F41.9 [facility] [id number] [place] [address] 14907- 5244 Jan, Unspecified episodic mood disorder F39 ; Anxiety disorder, unspecified F41.9 and Unspecified personality disorder F60.9 [facility] [id number] [place] [address] 19224- 1418 Jan, Anxiety F41.9 [facility] [id number] [place] [address] 92706- 7443 Jan, Anxiety disorder, unspecified F41.9 [facility] [id number] [place] [address] 41188- 4539 Dec, Unspecified episodic mood disorder F39 ; Anxiety disorder, unspecified F41.9 and Unspecified personality disorder F60.9 [facility] [id number] [place] [address] 88352- 8179 Dec, Anxiety F41.9 [facility] [id number] [place] [address] 66706- 4603 Dec, Anxiety disorder, unspecified F41.9 [facility] [id number] [place] [address] 63869- 7804 Dec, Unspecified episodic mood disorder F39 ; Anxiety disorder, unspecified F41.9 and Unspecified personality disorder F60.9 [facility] [address] [address]- 2693 Nov, [facility] [address] [address]- 7802 Nov, [facility] [address] [address]- 2538 Nov, Unspecified episodic mood disorder F39 ; Anxiety disorder, unspecified F41.9 and Unspecified personality disorder F60.9 [facility] [id number] [place] [address] 71447- 0674 Nov, Anxiety disorder, unspecified F41.9 [facility] [id number] [place] [address] 55431- 0985 Oct, Unspecified episodic mood disorder F39 ; Anxiety disorder, unspecified F41.9 and Unspecified personality disorder F60.9 [facility] [id number] [place] [address] 87808- 8797 Oct, Vaginal yeast infection B37.3 [facility] [id number] [place] [address] 00190- 4943 Oct, [facility] [id number] [place] [address] 82986- 4457 Oct, Anxiety disorder, unspecified F41.9 [facility] [id number] [place] [address] 39965- 7406 Oct, Routine gynecological examination Z01.419 ; Screening for breast cancer Z12.31 and Vaginal yeast infection B37.3 [facility] [address] [address]- 0894 Sep, Unspecified episodic mood disorder F39 ; Anxiety disorder, unspecified F41.9 and Unspecified personality disorder F60.9 [facility] [address], [place] [address]- 7024 Sep, [facility] [id number] [place] [address] 63813- 0658 Sep, Anxiety disorder, unspecified F41.9 [facility] [id number] [place] [address] 36611- 8066 Sep, Bronchitis J40 and Stress incontinence of urine N39.3 [facility] [id number] [place] [address] 56652- 6193 Sep, Stress incontinence of urine N39.3 ; Bronchitis J40 and Anxiety F41.9 [facility] [id number] [place] [address] 54809- 9607 Sep, [facility] [id number] [place] [address] 43999- 4799 Sep, Unspecified episodic mood disorder F39 ; Anxiety disorder, unspecified F41.9 and Unspecified personality disorder F60.9 [facility] [id number] [place] [address] 99913- 5838 Aug, Anxiety F41.9 ; Stress incontinence of urine N39.3 and Encounter for immunization Z23 [facility] [id number] [place] [address] 76750- 1448 Aug, Anxiety disorder, unspecified F41.9 [facility] [id number] [place] [address] 56335- 2143 Jul, Unspecified episodic mood disorder F39 ; Anxiety disorder, unspecified F41.9 and Unspecified personality disorder F60.9 [facility] [id number] [place] [address] 69061- 6010 Jul, [facility] [id number] [place] [address] 70870- 1818 Jul, Unspecified episodic mood disorder F39 ; Anxiety disorder, unspecified F41.9 and Unspecified personality disorder F60.9 [facility] [id number] [place] [address] 15176- 7886 Jul, Anxiety disorder, unspecified F41.9 [facility] [address], [place] [address]- 2854 Jun, Unspecified episodic mood disorder F39 ; Anxiety disorder, unspecified F41.9 and Unspecified personality disorder F60.9 [facility] [id number] [place] [address] 28596- 2155 Jun, Anxiety disorder, unspecified F41.9 [facility] [id number] [place] [address] 98034- 2823 Jun, Unspecified episodic mood disorder F39 ; Anxiety disorder, unspecified F41.9 and Unspecified personality disorder F60.9 [facility] [id number] [place] [address] 32411- 2056 Jun, [facility] [id number] [place] [address] 55723- 3101 May, Anxiety disorder, unspecified F41.9 [facility] [id number] [place] [address] 29406- 9149 May, Unspecified episodic mood disorder F39 ; Anxiety disorder, unspecified F41.9 and Unspecified personality disorder F60.9 [facility] [id number] [place] [address] 12819- 6078 Apr, Anxiety disorder, unspecified F41.9 [facility] [id number] [place] [address] 44416- 9507 March, Unspecified episodic mood disorder F39 ; Anxiety disorder, unspecified F41.9 and Unspecified personality disorder F60.9 [facility] [id number] [place] [address] 59646- 6379 March, Bronchitis J40 [facility] [id number] [place] [address] 64684- 2997 March, Unspecified episodic mood disorder F39 ; Anxiety disorder, unspecified F41.9 and Unspecified personality disorder F60.9 [facility] [id number] [place] [address] 35387- 3248 Feb, [facility] [address], [place] [address]- 4312 Feb, Unspecified episodic mood disorder F39 ; Anxiety disorder, unspecified F41.9 and Unspecified personality disorder F60.9 [facility] [address], [place] [address]- 2231 Feb, Bronchitis J40 [facility] [id number] [place] [address] 89422- 0685 Feb, Unspecified episodic mood disorder F39 ; Anxiety disorder, unspecified F41.9 and Unspecified personality disorder F60.9 [facility] [id number] [place] [address] 07009- 8946 Jan, Unspecified episodic mood disorder F39 ; Anxiety disorder, unspecified F41.9 and Unspecified personality disorder F60.9 [facility] [id number] [place] [address] 43630- 8261 Jan, Bronchitis J40 [facility] [id number] [place] [address] 91431- 3460 Jan, Unspecified episodic mood disorder F39 ; Anxiety disorder, unspecified F41.9 and Unspecified personality disorder F60.9 [facility] [address], [place] [address]- 1959 Dec, Anxiety F41.9 [facility] [address], [place] [address]- 9707 Dec, Unspecified episodic mood disorder F39 ; Anxiety disorder, unspecified F41.9 and Unspecified personality disorder F60.9 [facility] [id number] [id number] Dec, [facility] [address], [place] [address]- 8983 Dec, Unspecified episodic mood disorder F39 ; Anxiety disorder, unspecified F41.9 and Unspecified personality disorder F60.9 [facility] [address], [place] [address]- 6541 Nov, [facility] [id number] [place] [address] 20127- 2870 Oct, Unspecified episodic mood disorder F39 ; Anxiety disorder, unspecified F41.9 and Unspecified personality disorder F60.9 [facility] [id number] [place] [address] 87490- 7145 Oct, [facility] [address], [place] [address] -2869 Oct, Acute upper respiratory infection, unspecified J06.9 ; Other viral agents as the cause of diseases classified elsewhere B97.89 and Cough R05 [facility] [address], [place] [address]- 3058 Aug, Unspecified episodic mood disorder F39 ; Anxiety disorder, unspecified F41.9 and Unspecified personality disorder F60.9 [facility] [id number], [place] [address]- 6323 Aug, [facility] [id number] [place] [address] 83726- 6916 Aug, [facility] [id number] [place] [address] 59219- 3336 Aug, [facility] [id number] [place] [address] 29370- 1455 Aug, Visit for TB skin test Z11.1 [facility] [address], [place] [address]- 4584 Jul, [facility] [id number] [place] [address] 16999- 0777 Jul, [facility] [id number] [place] [address] 23853- 9618 Jul, [facility] [id number] [place] [address] 16886- 8197 Jul, [facility] [address], [place] [address]- 7335 Jul, [facility] [id number] [place] [address] 47633- 5157 Jul, Unspecified episodic mood disorder F39 ; Anxiety disorder, unspecified F41.9 and Unspecified personality disorder F60.9 [facility] [id number] [place] [address] 92885- 9215 Jun, [facility] [id number] [place] [address] 03432- 1722 Jun, Unspecified episodic mood disorder F39 ; Anxiety disorder, unspecified F41.9 and Unspecified personality disorder F60.9 [facility] [address], [place] [address]- 0361 Jun, [facility] [id number] [place] [address] 03387- 3746 May, Unspecified episodic mood disorder F39 ; Anxiety disorder, unspecified F41.9 and Unspecified personality disorder F60.9 [facility] [id number] [place] [address] 32415- 4465 May, [facility] [address], [place] [address]- 3995 May, [facility] [address], [place] [address]- 7795 May, Edema, unspecified R60.9 [facility] [address] [address]- 1380 Apr, [facility] [id number] [place] [address] 95634- 2278 Apr, Unspecified episodic mood disorder F39 ; Anxiety disorder, unspecified F41.9 and Unspecified personality disorder F60.9 [facility] [address], [place] [address]- 7929 Apr, Anxiety F41.9 [facility] [id number] [place] [address] 58948- 7354 March, Unspecified episodic mood disorder F39 ; Anxiety disorder, unspecified F41.9 and Unspecified personality disorder F60.9 [facility] [id number] [place] [address] 39260- 8940 March, Unspecified episodic mood disorder F39 ; Anxiety disorder, unspecified F41.9 and Unspecified personality disorder F60.9 [facility] [id number] [place] [address] 64799- 5160 Feb, Anxiety F41.9 [facility] [id number] [place] [address] 98542- 2138 Feb, Unspecified episodic mood disorder F39 ; Anxiety disorder, unspecified F41.9 and Unspecified personality disorder F60.9 [facility] [id number] [place] [address] 86483- 7160 Jan, Unspecified episodic mood disorder F39 ; Anxiety disorder, unspecified F41.9 and Unspecified personality disorder F60.9 [facility] [id number] [place] [address] 16876- 0077 Jan, Unspecified episodic mood disorder F39 ; Anxiety disorder, unspecified F41.9 and Unspecified personality disorder F60.9 [facility] [id number] [place] [address] 81531- 7859 Jan, Edema, unspecified R60.9 [facility] [id number] [place] [address] 22378- 0585 Dec, [facility] [id number] [place] [address] 90537- 1432 Dec, [facility] [id number] [place] [address] 00325- 9488 Dec, [facility] [id number] [place] [address] 73961- 0430 Dec, Unspecified episodic mood disorder F39 ; Anxiety disorder, unspecified F41.9 and Unspecified personality disorder F60.9 [facility] [id number] [place] [address] 95266- 4711 Nov, [facility] [id number] [place] [address] 57958- 6598 Nov, Unspecified episodic mood disorder F39 ; Anxiety disorder, unspecified F41.9 and Unspecified personality disorder F60.9 [facility] [id number] [place] [address] 60933- 1883 Oct, Unspecified episodic mood disorder F39 ; Anxiety disorder, unspecified F41.9 and Unspecified personality disorder F60.9 [facility] [id number] [place] [address] 72590- 3623 Oct, Unspecified episodic mood disorder F39 ; Anxiety disorder, unspecified F41.9 and Unspecified personality disorder F60.9 [facility] [id number] [place] [address] 36544- 3254 Sep, Unspecified episodic mood disorder F39 ; Anxiety disorder, unspecified F41.9 and Unspecified personality disorder F60.9 [facility] [id number] [place] [address] 08270- 6495 Sep, Encounter for immunization Z23 [facility] [id number] [place] [address] 82777- 4152 Sep, Edema of left lower extremity R60.0 [facility] [id number] [place] [address] 16403- 8386 Aug, Unspecified episodic mood disorder F39 ; Anxiety disorder, unspecified F41.9 and Unspecified personality disorder F60.9 [facility] [address] [place] [address] 18800- 9664 Aug, [facility] [address] [place] [address] 87410- 6817 Aug, Edema of left lower extremity R60.0 [facility] [id number] [place] [address] 39648- 1648 Aug, [facility] [id number] [place] [address] 19828- 6554 Aug, Unspecified episodic mood disorder F39 ; Anxiety disorder, unspecified F41.9 and Unspecified personality disorder F60.9 [facility] [id number] [place] [address] 49397- 8197 Jul, Unspecified episodic mood disorder 296.90 ; Anxiety disorder , unspecified 300.00 and Unspecified personality disorder 301.9 [facility] [id number] [place] [address] 92703- 8818 Jul, Unspecified episodic mood disorder 296.90 ; Anxiety disorder , unspecified 300.00 and Unspecified personality disorder 301.9 [facility] [id number] [place] [address] 45325- 2979 Jul, [facility] [id number] [place] [address] 99624- 6706 Jun, Unspecified episodic mood disorder 296.90 ; Anxiety disorder , unspecified 300.00 and Unspecified personality disorder 301.9 [facility] [id number] [place] [address] 23184- 2457 May, Unspecified episodic mood disorder 296.90 ; Anxiety disorder , unspecified 300.00 and Unspecified personality disorder 301.9 [facility] [address] [place] [address] 97141- 9428 May, Anxiety disorder, unspecified 300.00 [facility] [id number] [place] [address] 87734- 1609 May, Anxiety disorder, unspecified 300.00 and Edema 782.3 [facility] [address] [place] [address] 33524- 6960 May, Unspecified episodic mood disorder 296.90 ; Anxiety disorder , unspecified 300.00 and Unspecified personality disorder 301.9 [facility] [address] [address]- 3814 Apr, [facility] [id number] [place] [address] 64040- 0967 Apr, Unspecified episodic mood disorder 296.90 ; Anxiety disorder , unspecified 300.00 and Personality disorder, unspecified 301.9 [facility] [id number] [place] [address] 82313- 0292 Apr, Unspecified episodic mood disorder 296.90 ; Anxiety disorder , unspecified 300.00 and Unspecified personality disorder 301.9 [facility] [address], [place] [address]- 5076 March, [facility] [id number] [place] [address] 37819- 9652 March, Unspecified episodic mood disorder 296.90 ; Anxiety disorder , unspecified 300.00 and Unspecified personality disorder 301.9 [facility] [id number] [place] [address] 74162- 6083 March, Unspecified episodic mood disorder 296.90 ; Anxiety disorder 300.00 and Unspecified personality disorder 301.9 [facility] [address], [place] [address]- 2150 March, [facility] [address], [place] [address]- 9848 March, [facility] [address], [place] [address]- 6976 Feb, [facility] [address], [place] [address]- 6722 Feb, [facility] [id number] [place] [address] 89585- 3554 Feb, [facility] [address], [place] [address]- 9016 Jan, [facility] [id number] [place] [address] 90728- 8154 Jan, [facility] [place] [facility] [address] [id number] [place] [address]- 7044 Jan, [facility] [place] [facility] [address] [facility] [id number] [place] [address]- 4316 Jan, [facility] [place] [facility] [address] [facility] [id number] [place] [address]- 8005 Jan, [facility] [place] [facility] [address] [facility] [id number], [place] [address]- 8049 Jan, [facility] [place] [facility] [address] [facility] [id number] [place] [id number] Jan, [facility] [place] [facility] [address] [facility] [id number], [place] [address]- 5980 Jan, [facility] [place] [facility] [address] [facility] [id number], [place] [address]- 4778 Jan, [facility] [place] [facility] [address] [facility] [id number], [place] [address]- 6456 Jan, [facility] [place] [facility] [address] [facility] [id number], [place] [address]- 1289 Jan, [facility] [place] [facility] [address] [facility] [id number], [place] [address]- 4207 Jan, [facility] [place] [facility] [address] [facility] [id number], [place] [address]- 8472 Jan, [facility] [place] [facility] [address] [facility] [id number], [place] [address]- 7732 Jan, [facility] [place] [facility] [address] [facility] [id number], [place] [address]- 6175 Jan, [facility] [place] [facility] [address] [facility] [id number], [place] [address]- 2874 Jan, [facility] [place] [facility] [address] [facility] [id number], [place] [address]- 7121 Dec, [facility] [place] [facility] [address] [facility] [id number] [place] [address] 09 Dec, 2014 [facility] [address] [id number] [place] [address] Dec, 2014 [facility] [address] [id number] [place] [address] Dec, 2014 [facility] [address] [id number] [place] [address] Nov, [facility] [address] [id number] [place] [address] Nov, [facility] [address] [id number] [place] [address] Nov, [facility] [address] [id number] [place] [address] Nov, [facility] [address] [id number] [place] [address] Oct, [facility] [address] [id number] [place] [address] Oct, [facility] [address] [id number] [place] [address] Oct, [facility] [address] [id number] [place] [address] Oct, [facility] [place] [facility] [address] [id number] [place] [address] Oct, [facility] [address] [id number] [place] [address] Oct, [facility] [place] [facility] [address] [id number] [place] [address] Oct, [facility] [place] [facility] [address] [id number] [place] [address] Oct, [facility] [place] [facility] [address] [id number] [place] [address] Oct, [facility] [place] [facility] [address] [id number] [place] [address] Oct, [facility] [place] [facility] [address] [id number] [place] [address] Oct, [facility] [place] [facility] [address] [id number] [place] [address] Oct, [facility] [place] [facility] [address] [id number] [place] [address] Oct, [facility] [place] [facility] [address] [id number] [place] [address] Oct, [facility] [place] [facility] [address] [address] [id number] [place] [address] Oct, [facility] [place] [facility] [address] [id number] [place] [address]857 Oct, [facility] [place] [facility] [address] [id number] [place] [address] 2857 Sep, [facility] [place] [facility] [address] [id number] [place] [address] 6275 Sep, [facility] [place] [facility] [address] [id number] [place] [address] 5424 Sep, [facility] [place] [facility] [address] [id number] [place] [address] 3489 Sep, [facility] [place] [facility] [address] [id number], [place] [address] Sep, [facility] [place] [facility] [address] [id number] [place] [address] 1990 Sep, [facility] [place] [facility] [address] [id number] [place] [address] 2391 Sep, [facility] [place] [facility] [address] [id number] [place] [address] 6432 Sep, [facility] [place] [facility] [address] [id number], [place] [address] Sep, [facility] [place] [facility] [address] [id number] [place] [address] 3350 Sep, [facility] [place] [facility] [address] [id number] [place] [address] 7779 Aug, [facility] [place] [facility] [address] [id number] [place] [address]- 3243 30 Aug, 2014 [facility] [place] [facility] [address] [id number] [place] [address]- 1209 Aug, [facility] [place] [facility] [address] [id number] [place] [address]- 5814 14 Aug, 2014 [facility] [place] [facility] [address] [id number] [place] [address]- 1993 Aug, [facility] [place] [facility] [address] [facility] [id number] [place] [address]- 5090 Aug, [facility] [place] [facility] [address] [facility] [id number] [place] [address]- 5021 Aug, [facility] [place] [facility] [address] [facility] [id number] [place] [address]- 0506 Aug, [facility] [place] [facility] [address] [facility] [id number] [place] [address]- 0590 29 Jul, 2013 [facility] [place] [facility] [address] [id number], [place] [address] 29 Sep, 2013 [facility] [place] [facility] [address] [id number], [place] [address] 6[address] 05 Sep, 2013 [facility] [place] [facility] [address] [id number] [place] [address]- 4023 05 Sep, 2013 [facility] [place] [facility] [address] [facility] [id number] [place] [address]- 4632 05 Sep, 2013 [facility] [place] [facility] [address] [facility] [id number] [place] [address]- 0594 05 Sep, 2013 [facility] [place] [facility] [address] [id number] [place] [address]- 8671 Jun, [facility] [place] [facility] [address] [id number] [place] [address]- 4293 Jun, [facility] [place] [facility] [address] [id number] [place] [address]- 2793 May, [facility] [place] [facility] [address] [id number] [place] [address]- 6039 May, [facility] [place] [facility] [address] [id number] [place] [address]- 8978 May, [facility] [place] [facility] [address] [id number] [place] [address]- 9178 May, [facility] [place] [facility] [address] [id number] [place] [address]- 9611 May, [facility] [place] [facility] [address] [id number] [place] [address]- 6777 May, [facility] [place] [facility] [address] [id number] [place] [address]- 7340 May, [facility] [place] [facility] [address] [id number] [place] [address]- 5464 May, [facility] [place] [facility] [address] [id number] [place] [address]- 2759 Apr, [facility] [place] [facility] [address] [id number] [place] [address]- 1259 Apr, [facility] [place] [facility] [address] [id number] [place] [address]- 1101 March, [facility] [place] [facility] [address] [id number] [place] [address]- 4524 March, [facility] [place] [facility] [address] [id number] [place] [address] 3039 Feb, [facility] [place] [facility] [address] [id number] [place] [address]- 4000 Feb, [facility] [place] [facility] [address] [id number] [place] [address]- 9311 Feb, [facility] [place] [facility] [address] [id number] [place] [address]- 8248 Feb, [facility] [place] [facility] [address] [id number] [place] [address]- 3886 Feb, [facility] [place] [facility] [address] [id number] [place] [address]- 5399 Feb, [facility] [place] [facility] [address] [id number] [place] [address]- 1172 Feb, [facility] [place] [facility] [address] [id number] [place] [address]- 1646 Feb, [facility] [place] [facility] [address] [id number] [place] [address]- 4551 Feb, [facility] [place] [facility] [address] [id number] [place] [address]- 6202 Feb, [facility] [place] [facility] [address] [id number] [place] [address]- 4231 Jan, [facility] [place] [facility] [address] [id number] [place] [address]- 0840 Jan, [facility] [place] [facility] [address] [id number] [place] [address]- 6443 Jan, [facility] [place] [facility] [address] [id number], [place] [address] Jan, [facility] [place] [facility] [address] [id number] [place] [address]- 9223 Jan, [facility] [place] [facility] [address] [id number] [place] [address]- 9622 Dec, [facility] [place] [facility] [address] [id number] [place] [address]- 4958 Dec, [facility] [place] [facility] [address] [id number] [place] [address]- 8199 10 Dec, 2013 [facility] [address] [id number] [place] [address]- 4915 Dec, [facility] [place] [facility] [address] [id number] [place] [address]- 4176 Dec, [facility] [place] [facility] [address] [id number] [place] [address]- 4686 Dec, [facility] [place] [facility] [address] [id number] [place] [address]- 4802 Nov, [facility] [place] [facility] [address] [id number] [place] [address]- 3901 Nov, [facility] [place] [facility] [address] [id number] [place] [address]- 0995 Nov, [facility] [place] [facility] [address] [id number] [place] [address]- 2310 Nov, [facility] [address] [id number] [place] [address]- 5375 Nov, [facility] [place] [facility] [address] [id number] [place] [address]- 6387 Nov, [facility] [place] [facility] [address] [id number] [place] [address]- 9400 Nov, [facility] [place] [facility] [address] [id number] [place] [address]- 6550 Nov, [facility] [place] [facility] [address] [id number] [place] [address]- 1486 Oct, [facility] [place] [facility] [address] [id number] [place] [address]- 9600 Oct, [facility] [place] [facility] [address] [id number] [place] [address]- 1621 Oct, [facility] [place] [facility] [address] [id number] [place] [address]- 5447 Oct, [facility] [place] [facility] [address] [id number] [place] [address]- 8946 05 Oct, 2013 [facility] [place] [facility] [address] [id number] [place] [address]- 3596 05 Oct, 2013 [facility] [place] [facility] [address] [id number] [place] [address]- 5818 Oct, [facility] [place] [facility] [address] [id number] [place] [address]- 4171 Oct, [facility] [place] [facility] [address] [id number] [place] [address]- 6750 Sep, [facility] [place] [facility] [address] [id number] [place] [address]- 1912 Sep, [facility] [place] [facility] [address] [id number] [place] [address]- 8888 Sep, [facility] [place] [facility] [address] [id number] [place] [address]- 6675 Sep, [facility] [place] [facility] [address] [id number] [place] [address]- 2097 Sep, [facility] [place] [facility] [address] [id number], [place] [address]- 4192 Sep, [facility] [place] [facility] [address] [id number], [place] [address]- 9228 Sep, [facility] [place] [facility] [address] [id number], [place] [address]- 9078 Sep, [facility] [place] [facility] [address] [id number] [place] [address]- 2819 Aug, [facility] [place] [facility] [address] [id number] [place] [address]- 4896 Aug, [facility] [place] [facility] [address] [id number], [place] [address]- 5724 Aug, [facility] [place] [facility] [address] [id number] [place] [address]- 7959 Jul, [facility] [address] [id number] [place] [address]- 7573 Jun, [facility] [address] [id number] [place] [address]- 6440 Jun, [facility] [address] [id number] [place] [address]- 3112 Jun, [facility] [address] [id number] [place] [address]- 6174 Jun, [facility] [address] [id number] [place] [address]- 5766 Jun, [facility] [address] [id number] [place] [address]- 1115 May, [facility] [address] [id number] [place] [address]- 7583 May, [facility] [address] [id number] [place] [address]- 6897 Apr, [facility] [address] [id number] [place] [address]- 5882 Apr, [facility] [address] [id number] [place] [address]- 2267 March, [facility] [address] [id number] [place] [address]- 3387 March, [facility] [place] [facility] [address] [id number] [place] [address]- 0544 March, [facility] [place] [facility] [address] [id number] [place] [address]- 6867 March, [facility] [place] [facility] [address] [id number] [place] [address]- 2463 March, [facility] [address] [id number] [place] [address]- 4979 Feb, [facility] [address] [id number] [place] [address]- 3782 Feb, [facility] [place] [facility] [address] [id number] [place] [address]- 4210 Feb, [facility] [place] [facility] [address] [id number] [place] [address]- 5767 Jan, [facility] [place] [facility] [address] [id number] [place] [address]- 0203 Dec, [facility] [place] [facility] [address] [id number] [place] [address]- 9459 Dec, [facility] [place] [facility] [address] [id number] [place] [address]- 2821 Dec, [facility] [address] [id number] [place] [address]- 6053 Dec, [facility] [address] [id number] [place] [address]- 7864 Nov, [facility] [address] [id number] [place] [address]- 0151 Nov, [facility] [address] [id number] [place] [address]- 3636 Nov, [facility] [place] [facility] [address] [id number] [place] [address]- 9624 Nov, [facility] [place] [facility] [address] [id number] [place] [address]- 0767 Oct, [facility] [place] [facility] [address] [id number] [place] [address]- 4251 Oct, [facility] [place] [facility] [address] [id number] [place] [address]- 8276 Oct, [facility] [place] [facility] [address] [id number] [place] [address]- 6516 Oct, [facility] [place] [facility] [address] [id number], [place] [address]- 3679 14 Sep, 2012 [facility] [place] [facility] [address] [id number] [place] [address]- 2613 14 Sep, 2012 [facility] [place] [facility] [address] [id number] [place] [address]- 8666 Sep, [facility] [place] [facility] [address] [id number] [place] [address]- 3071 Sep, [facility] [place] [facility] [address] [id number] [place] [address]- 9253 Sep, [facility] [place] [facility] [address] [id number] [place] [address]- 1017 Sep, [facility] [place] [facility] [address] [id number] [place] [address]- 0511 Aug, [facility] [place] [facility] [address] [id number] [place] [address]- 4125 Aug, [facility] [place] [facility] [address] [id number] [place] [address]- 2167 Aug, [facility] [place] [facility] [address] [id number] [place] [address]- 2902 Jul, [facility] [place] [facility] [address] [id number] [place] [address]- 6407 Jul, [facility] [place] [facility] [address] [id number], [place] [address]- 9229 Jun, [facility] [place] [facility] [address] [id number], [place] [address]- 4621 30 May, 2012 [facility] [place] [facility] [address] [id number] [place] [address]- 5766 May, [facility] [place] [facility] [address] [id number] [place] [address]- 8360 Apr, [facility] [place] [facility] [address] [id number] [place] [address]- 1858 Apr, [facility] [place] [facility] [address] [id number] [place] [address]- 8491 March, [facility] [address] [id number] [place] [address]- 5652 March, [facility] [place] [facility] [address] [id number] [place] [address]- 2153 Feb, [facility] [address] [id number] [place] [address]- 0791 16 Feb, 2012 [facility] [address] [id number] [place] [address]- 9847 Feb, [facility] [address] [id number] [place] [address]- 6451 Feb, [facility] [address] [facility] [id number] [place] [address]- 0001 Jan, [facility] [id number] [place] [address]- 4884 Jan, [facility] [address] [facility] [id number] [place] [address]- 5283 29 Dec, 2011 [facility] [id number] [place] [address]- 0999 28 Dec, 2011 [facility] [id number] [place] [address]- 6005 26 Dec, 2011 [facility] [id number] [place] [address]- 8853 23 Dec, 2011 [facility] [address] [facility] [id number] [place] [address]- 0543 20 Dec, [address] [facility] [place] [facility] [address] [facility] [id number] [place] [address]- 0347 15 Dec, 2011 [facility] [address] [facility] [id number] [place] [address]- 0590 10 Dec, 2011 [facility] [id number] [place] [address]- 2546 Dec, [facility] [address] [id number] [place] [address]- 6306 Dec, [facility] [place] [facility] [address] [id number] [place] [address]- 3876 Dec, [facility] [address] [id number] [place] [address]- 8326 Dec, [facility] [place] [facility] [address] [id number] [place] [address]- 3976 Dec, [facility] [address] [id number] [place] [address]- 0543 Dec, [facility] [address] [id number] [place] [address]- 4192 Nov, [facility] [address] [id number] [place] [address]- 5119 Nov, [facility] [address] [id number] [place] [address]- 3394 Nov, [facility] [address] [id number] [place] [address]- 6954 Nov, [facility] [address] [id number] [place] [address]- 1593 Nov, [facility] [address] [id number] [place] [address]- 7512 Nov, [facility] [place] [facility] [address] [id number] [place] [address]- 2569 Oct, [facility] [place] [facility] [address] [id number] [place] [address]- 2843 Oct, [facility] [place] [facility] [address] [id number] [place] [address]- 0086 Sep, [facility] [place] [facility] [address] [id number] [place] [address]- 2682 Sep, [facility] [place] [facility] [address] [id number], [place] [address]- 3388 Sep, [facility] [address] [facility] [id number] [place] [address]- 9958 Sep, [facility] [address] [facility] [id number] [place] 3270 Sep, [facility] [address] [facility] [id number] [place] [address]- 3514 March, [facility] [address] [id number] [place] [address]- 4523 Oct, [facility] [address] [facility] [id number] [place] [address]- 6207 Oct, [facility] [address] [facility] [id number] [place] 5237 Oct, [facility] [address] [facility] [id number] [place] [address]- 2324 Sep, [facility] [address] [facility] [id number] [place] [address]- 1308 Sep, [facility] [address] [facility] [id number], [place] [address]- 1734 Sep, [facility] [address] [facility] [id number], [place] [address]- 1852 Sep, [facility] [address] [facility] [id number], [place] [address]- 9163 Aug, [facility] [address] [facility] [id number][place] 8860 Oct, [facility] [address] [facility] [id number][place] 4962 Oct, [facility] [address] [facility] [id number][place] [address] May, IMMUNIZATIONS No Known Immunizations SOCIAL HISTORY Never Assessed REASON FOR VISIT f/u PLAN OF CARE Activity Details Follow Up 2 Weeks Reason:BH F/U VITAL SIGNS MEDICATIONS Unknown Medications RESULTS No Results PROCEDURES Procedure Date Ordered Result Body Site Psychotherapy, patient &/family, 45 minutes, established patient February 12, 2018 INSTRUCTIONS MEDICATIONS ADMINISTERED No Known Medications MEDICAL (GENERAL) HISTORY Type Description Date Medical History hypertension Medical History panic attacks Surgical History cholecystectomy 2008 Hospitalization History surgery
--- OUTSIDE RECORDS SUMMARY | 2018-12-11 10:24 | XMS REPORT ---
Author Author LEIDA ANDINO Organization [facility] Address [address] [place] [address] Care Team Providers Care Cofounder Name Role Phone LEIDA ANDINO Unavailable PROBLEMS Type Condition ICD9-CM Code RHD24-OM Code Onset Dates Condition Status SNOMED Code Problem Stress incontinence of urine N39.3 Active 87938898 Problem Anxiety F41.9 Active 61840377 Problem Anxiety disorder, unspecified F41.9 Active 399147738 Problem Unspecified episodic mood disorder F39 Active 412108465 Problem Unspecified personality disorder F60.9 Active [id number] ALLERGIES No Known Allergies ENCOUNTERS Encounter Location Date Diagnosis [place] [id number] [place] [address] 33348- 8942 May, [facility] [id number] [place] [address] 02574- 7611 Apr, Anxiety disorder, unspecified F41.9 [place] [id number] [place] [address] 83349- 9898 Apr, Unspecified episodic mood disorder F39 ; Anxiety disorder, unspecified F41.9 and Unspecified personality disorder F60.9 [place] [id number] [place] [address] 48364- 4757 March, Anxiety disorder, unspecified F41.9 [place] [id number] [place] [address] 77139- 8278 March, Unspecified episodic mood disorder F39 ; Anxiety disorder, unspecified F41.9 and Unspecified personality disorder F60.9 [place] [id number] [place] [address] 56002- 7669 March, Anxiety disorder, unspecified F41.9 [place] [id number] [place] [address] 40707- 5396 Feb, Unspecified episodic mood disorder F39 ; Anxiety disorder, unspecified F41.9 and Unspecified personality disorder F60.9 [place] [id number] [place] [address] 81893- 3142 Feb, Unspecified episodic mood disorder F39 ; Anxiety disorder, unspecified F41.9 and Unspecified personality disorder F60.9 [place] [id number] [place] [address] 24764- 4401 Feb, Anxiety disorder, unspecified F41.9 [place] [id number] [place] [address] 01144- 2055 Jan, Unspecified episodic mood disorder F39 ; Anxiety disorder, unspecified F41.9 and Unspecified personality disorder F60.9 [place] [id number] [place] [address] 17475- 5997 Jan, Anxiety F41.9 [place] [id number] [place] [address] 57362- 6489 Jan, Anxiety disorder, unspecified F41.9 [place] [id number] [place] [address] 76731- 4895 Dec, Unspecified episodic mood disorder F39 ; Anxiety disorder, unspecified F41.9 and Unspecified personality disorder F60.9 [place] [address] [place] [address] 09984- 6843 Dec, Anxiety F41.9 [place] [id number] [place] [address] 61842- 0238 Dec, Anxiety disorder, unspecified F41.9 [place] [id number] [place] [address] 89241- 4505 Dec, Unspecified episodic mood disorder F39 ; Anxiety disorder, unspecified F41.9 and Unspecified personality disorder F60.9 [place] [address] [place] [address] 82912- 0939 Nov, [facility] [address], [place] [address]- 2073 Nov, [facility] [address], [place] [address]- 6146 Nov, Unspecified episodic mood disorder F39 ; Anxiety disorder, unspecified F41.9 and Unspecified personality disorder F60.9 [facility] [address] [place] [address] 05135- 2260 Nov, Anxiety disorder, unspecified F41.9 [facility] [address], [place] [address]- 8363 Oct, Unspecified episodic mood disorder F39 ; Anxiety disorder, unspecified F41.9 and Unspecified personality disorder F60.9 [facility] [address], [place] [address]- 9541 Oct, Vaginal yeast infection B37.3 [facility] [address], [place] [address]- 7554 Oct, [facility] [address] [place] [address] 97821- 9559 Oct, Anxiety disorder, unspecified F41.9 [facility] [address], [place] [address]- 9519 Oct, Routine gynecological examination Z01.419 ; Screening for breast cancer Z12.31 and Vaginal yeast infection B37.3 [facility] [address], [place] [address]- 5488 Sep, Unspecified episodic mood disorder F39 ; Anxiety disorder, unspecified F41.9 and Unspecified personality disorder F60.9 [facility] [address], [place] [address]- 0242 Sep, [facility] [address], [place] [address]- 3238 Sep, Anxiety disorder, unspecified F41.9 [facility] [id number] [place] [address] 97411- 5032 Sep, Bronchitis J40 and Stress incontinence of urine N39.3 [place] [address] 14105- 0649 Sep, Stress incontinence of urine N39.3 ; Bronchitis J40 and Anxiety F41.9 [place] [address] 12421- 2522 Sep, [place] [address] 07237- 5696 Sep, Unspecified episodic mood disorder F39 ; Anxiety disorder, unspecified F41.9 and Unspecified personality disorder F60.9 [place] [id number] [place] [address] 97690- 6571 Aug, Anxiety F41.9 ; Stress incontinence of urine N39.3 and Encounter for immunization Z23 [place] [id number] [place] [address] 38426- 0490 Aug, Anxiety disorder, unspecified F41.9 [place] [id number] [place] [address] 02602- 9106 Jul, Unspecified episodic mood disorder F39 ; Anxiety disorder, unspecified F41.9 and Unspecified personality disorder F60.9 [place] [id number] [place] [address] 54004- 3384 Jul, [place] [id number] [place] [address] 85993- 3473 Jul, Unspecified episodic mood disorder F39 ; Anxiety disorder, unspecified F41.9 and Unspecified personality disorder F60.9 [place] [id number] [place] [address] 46883- 2268 Jul, Anxiety disorder, unspecified F41.9 [place] [id number] [place] [address] 38458- 0495 Jun, Unspecified episodic mood disorder F39 ; Anxiety disorder, unspecified F41.9 and Unspecified personality disorder F60.9 [facility] [address] [place] [address] 67906- 6496 Jun, Anxiety disorder, unspecified F41.9 [facility] [id number] [place] [address] 15708- 9442 Jun, Unspecified episodic mood disorder F39 ; Anxiety disorder, unspecified F41.9 and Unspecified personality disorder F60.9 [facility] [id number] [place] [address] 36941- 0879 Jun, [facility] [id number] [place] [address] 63048- 3894 May, Anxiety disorder, unspecified F41.9 [facility] [id number] [place] [address] 39444- 2327 May, Unspecified episodic mood disorder F39 ; Anxiety disorder, unspecified F41.9 and Unspecified personality disorder F60.9 [facility] [id number] [place] [address] 42756- 9925 Apr, Anxiety disorder, unspecified F41.9 [facility] [id number] [place] [address] 79106- 5002 March, Unspecified episodic mood disorder F39 ; Anxiety disorder, unspecified F41.9 and Unspecified personality disorder F60.9 [facility] [id number] [place] [address] 33397- 1457 March, Bronchitis J40 [facility] [address], [place] [address]- 2719 March, Unspecified episodic mood disorder F39 ; Anxiety disorder, unspecified F41.9 and Unspecified personality disorder F60.9 [facility] [address], [place] [address]- 4036 Feb, [facility] [id number] [place] [address] 08725- 8713 Feb, Unspecified episodic mood disorder F39 ; Anxiety disorder, unspecified F41.9 and Unspecified personality disorder F60.9 [facility] [address], [place] [address]- 6395 Feb, Bronchitis J40 [facility] [address], [place] [address]- 0097 Feb, Unspecified episodic mood disorder F39 ; Anxiety disorder, unspecified F41.9 and Unspecified personality disorder F60.9 [facility] [address], [place] [address]- 8465 Jan, Unspecified episodic mood disorder F39 ; Anxiety disorder, unspecified F41.9 and Unspecified personality disorder F60.9 [facility] [address], [place] [address]- 7819 Jan, Bronchitis J40 [facility] [address] [place] [address] 86476- 0599 Jan, Unspecified episodic mood disorder F39 ; Anxiety disorder, unspecified F41.9 and Unspecified personality disorder F60.9 [facility] [address], [place] [address]- 0120 Dec, Anxiety F41.9 [facility] [address], [place] [address]- 0801 Dec, Unspecified episodic mood disorder F39 ; Anxiety disorder, unspecified F41.9 and Unspecified personality disorder F60.9 [facility] [address] [id number] [address] Dec, [facility] [address], [place] [address]- 8707 Dec, Unspecified episodic mood disorder F39 ; Anxiety disorder, unspecified F41.9 and Unspecified personality disorder F60.9 [facility] [address], [place] [address]- 8544 Nov, [facility] [address], [place] [address]- 0511 Oct, Unspecified episodic mood disorder F39 ; Anxiety disorder, unspecified F41.9 and Unspecified personality disorder F60.9 [facility] [address], [place] [address]- 0104 Oct, [facility] [address], [place] [address] -8567 Oct, Acute upper respiratory infection, unspecified J06.9 ; Other viral agents as the cause of diseases classified elsewhere B97.89 and Cough R05 [facility] [address] [place] [address] 95284- 2479 Aug, Unspecified episodic mood disorder F39 ; Anxiety disorder, unspecified F41.9 and Unspecified personality disorder F60.9 [facility] [address], [place] [address]- 3765 Aug, [facility] [id number] [place] [address] 32399- 7144 Aug, [facility] [address] [place] [address] 10762- 0423 Aug, [facility] [id number] [place] [address] 36278- 1324 Aug, Visit for TB skin test Z11.1 [facility] [address], [place] [address]- 9467 Jul, [facility] [address], [place] [address]- 1003 Jul, [facility] [address] [place] [address] 55746- 2753 Jul, [facility] [address] [place] [address] 58221- 9093 Jul, [facility] [address], [place] [address]- 1293 Jul, [place] [address], [place] [address]- 2658 Jul, Unspecified episodic mood disorder F39 ; Anxiety disorder, unspecified F41.9 and Unspecified personality disorder F60.9 [facility] [id number], [place] [address]- 8307 Jun, [facility] [address], [place] [address]- 8160 Jun, Unspecified episodic mood disorder F39 ; Anxiety disorder, unspecified F41.9 and Unspecified personality disorder F60.9 [facility] [address], [place] [address]- 9213 Jun, [facility] [address], [place] [address]- 3099 May, Unspecified episodic mood disorder F39 ; Anxiety disorder, unspecified F41.9 and Unspecified personality disorder F60.9 [facility] [address], [place] [address]- 7328 May, [facility] [address], [place] [address]- 1123 May, [facility] [address], [place] [address]- 4493 May, Edema, unspecified R60.9 [facility] [address], [place] [address]- 6024 Apr, [facility] [address], [place] [address]- 1440 Apr, Unspecified episodic mood disorder F39 ; Anxiety disorder, unspecified F41.9 and Unspecified personality disorder F60.9 [facility] [id number], [place] [address]- 2597 Apr, Anxiety F41.9 [facility] [address], [place] [address]- 1742 March, Unspecified episodic mood disorder F39 ; Anxiety disorder, unspecified F41.9 and Unspecified personality disorder F60.9 [facility] [address] [place] [address] 11178- 6962 March, Unspecified episodic mood disorder F39 ; Anxiety disorder, unspecified F41.9 and Unspecified personality disorder F60.9 [facility] [address] [place] [address] 90904- 8308 Feb, Anxiety F41.9 [facility] [id number] [place] [address] 49121- 2767 Feb, Unspecified episodic mood disorder F39 ; Anxiety disorder, unspecified F41.9 and Unspecified personality disorder F60.9 [place] [id number] [place] [address] 75132- 7875 Jan, Unspecified episodic mood disorder F39 ; Anxiety disorder, unspecified F41.9 and Unspecified personality disorder F60.9 [place] [id number] [place] [address] 71944- 2196 Jan, Unspecified episodic mood disorder F39 ; Anxiety disorder, unspecified F41.9 and Unspecified personality disorder F60.9 [place] [address] [place] [address] 58786- 3177 Jan, Edema, unspecified R60.9 [facility] [address], [place] [address]- 1915 Dec, [facility] [address], [place] [address]- 0968 Dec, [facility] [address] [place] [address] 47476- 9468 Dec, [facility] [id number] [place] [address] 77078- 7605 Dec, Unspecified episodic mood disorder F39 ; Anxiety disorder, unspecified F41.9 and Unspecified personality disorder F60.9 [facility] [address], [place] [address]- 2002 Nov, [facility] [id number] [place] [address] 68241- 8908 Nov, Unspecified episodic mood disorder F39 ; Anxiety disorder, unspecified F41.9 and Unspecified personality disorder F60.9 [facility] [address] [place] [address] 67387- 6511 Oct, Unspecified episodic mood disorder F39 ; Anxiety disorder, unspecified F41.9 and Unspecified personality disorder F60.9 [facility] [address] [place] [address] 10145- 4878 Oct, Unspecified episodic mood disorder F39 ; Anxiety disorder, unspecified F41.9 and Unspecified personality disorder F60.9 [facility] [id number] [place] [address] 22722- 2789 Sep, Unspecified episodic mood disorder F39 ; Anxiety disorder, unspecified F41.9 and Unspecified personality disorder F60.9 [place] [id number] [place] [address] 50859- 9721 Sep, Encounter for immunization Z23 [facility] [id number] [place] [address] 76127- 8288 Sep, Edema of left lower extremity R60.0 [facility] [address] [place] [address] 75922- 9721 Aug, Unspecified episodic mood disorder F39 ; Anxiety disorder, unspecified F41.9 and Unspecified personality disorder F60.9 [facility] [address], [place] [address]- 3552 Aug, [facility] [id number] [place] [address] 97610- 5342 Aug, Edema of left lower extremity R60.0 [facility] [address], [place] [address]- 0596 Aug, [place] [address], [place] [address]- 4453 Aug, Unspecified episodic mood disorder F39 ; Anxiety disorder, unspecified F41.9 and Unspecified personality disorder F60.9 [facility] [address], [place] [address]- 6549 Jul, Unspecified episodic mood disorder 296.90 ; Anxiety disorder , unspecified 300.00 and Unspecified personality disorder 301.9 [facility] [id number] [place] [address] 37262- 2422 Jul, Unspecified episodic mood disorder 296.90 ; Anxiety disorder , unspecified 300.00 and Unspecified personality disorder 301.9 [facility] [address] [address]- 7517 Jul, [facility] [id number] [place] [address] 25557- 0489 Jun, Unspecified episodic mood disorder 296.90 ; Anxiety disorder , unspecified 300.00 and Unspecified personality disorder 301.9 [facility] [address], [place] [address]- 9396 May, Unspecified episodic mood disorder 296.90 ; Anxiety disorder , unspecified 300.00 and Unspecified personality disorder 301.9 [facility] [address], [place] [address]- 3512 May, Anxiety disorder, unspecified 300.00 [facility] [id number] [place] [address] 72987- 2075 May, Anxiety disorder, unspecified 300.00 and Edema 782.3 [facility] [address] [place] [address] 15585- 5286 May, Unspecified episodic mood disorder 296.90 ; Anxiety disorder , unspecified 300.00 and Unspecified personality disorder 301.9 [facility] [address], [place] [address]- 5301 Apr, [facility] [address] [place] [address]- 8271 Apr, Unspecified episodic mood disorder 296.90 ; Anxiety disorder , unspecified 300.00 and Personality disorder, unspecified 301.9 [facility] [address] 9850 Apr, Unspecified episodic mood disorder 296.90 ; Anxiety disorder , unspecified 300.00 and Unspecified personality disorder 301.9 [facility] [address] [place] [address]- 6166 March, [facility] [address], [place] [address]- 1778 March, Unspecified episodic mood disorder 296.90 ; Anxiety disorder , unspecified 300.00 and Unspecified personality disorder 301.9 [facility] [address], [place] [address]- 5825 March, Unspecified episodic mood disorder 296.90 ; Anxiety disorder 300.00 and Unspecified personality disorder 301.9 [facility] [address], [place] [address]- 7670 March, [facility] [address] [address]- 3734 March, [facility] [address], [place] [address]- 0473 Feb, [facility] [address], [place] [address]- 8116 Feb, [facility] [address], [place] [address]- 4468 Feb, [facility] [address]- 6354 Jan, [facility] [address] [address]- 6610 Jan, [facility] [address] 8539 Jan, [facility] [place] [facility] [address] [id number] [place] [address]- 0079 Jan, [facility] [place] [facility] [address] [id number] [place] [address]- 6067 Jan, 2014 [facility] [place] [facility] [address] [facility] [id number] [place] [address]- 2999 Jan, 2014 [facility] [place] [facility] [address] [facility] [id number] [place] [id number] Jan, 2014 [facility] [place] [facility] [address] [id number] [place] [address]- 6245 Jan, 2014 [facility] [place] [facility] [address] [id number] [place] [address]- 8742 Jan, 2014 [facility] [place] [facility] [address] [facility] [id number] [place] [address]- 6181 Jan, 2014 [facility] [place] [facility] [address] [id number] [place] [address]- 8130 Jan, 2014 [facility] [place] [facility] [address] [id number] [place] [address]- 5554 Jan, [facility] [place] [facility] [address] [facility] [id number] [place] [address]- 6702 Jan, 2014 [facility] [place] [facility] [address] [facility] [id number] [place] [address]- 2802 Jan, [facility] [place] [facility] [address] [id number] [address]- 9769 Jan, 2014 [facility] [place] [facility] [address] [id number] [place] [address]- 3051 Jan, [facility] [place] [facility] [address] [id number] [place] [address]- 7990 Dec, [facility] [place] [facility] [address] [facility] [id number] [address]- 5632 Dec, [facility] [place] [facility] [address] [facility] [id number], [place] [address]- 8457 09 Dec, 2014 [facility] [address] [id number] [place] 6264 Dec, [facility] [address] [id number] [place] [address]- 5095 Nov, [facility] [address] [id number] [place] [address]- 6366 Nov, [facility] [place] [facility] [address] [id number] [place] [address]- 7328 Nov, [facility] [address] [id number] [place] [address]- 5697 Nov, [facility] [address] [id number] [place] [address]- 8252 Oct, [facility] [address] [id number] [place] [address]- 8078 Oct, [facility] [address] [id number] [place] [address]- 0770 Oct, [facility] [address] [id number] [place] [address]- 9551 Oct, [facility] [address] [facility] [id number] [place] [address]- 9740 Oct, [facility] [place] [facility] [address] [id number] [place] [address]- 4881 Oct, [facility] [place] [facility] [address] [id number] [place] [address]- 5328 Oct, [facility] [place] [facility] [address] [id number] [place] [address]- 1332 Oct, [facility] [place] [facility] [address] [id number] [place] [address]- 1473 Oct, [facility] [place] [facility] [address] [id number] [place] [address]- 7527 Oct, [facility] [place] [facility] [address] [id number] [place] [place] [address] Oct, [facility] [place] [facility] [address] [id number] [place] [address] 4[address] Oct, [facility] [place] [facility] [address] [id number] [place] [address] 2950 Oct, [facility] [place] [facility] [address] [id number] [place] [address]- 0904 Oct, [facility] [place] [facility] [address] [id number] [place] [address]- 1087 Oct, [facility] [place] [facility] [address] [id number] [place] [address]- 9214 Oct, [facility] [place] [facility] [address] [id number] [place] [address]- 1024 Sep, [facility] [place] [facility] [address] [id number] [place] [address]- 6448 Sep, [facility] [place] [facility] [address] [id number] [place] [address]- 5158 Sep, [facility] [place] [facility] [address] [id number] [place] [address]- 8939 Sep, [facility] [place] [facility] [address] [id number] [place] [address]- 0709 Sep, [facility] [place] [facility] [address] [id number] [place] [address]- 5699 Sep, [facility] [place] [facility] [address] [id number] [place] [address]- 2244 Sep, [facility] [place] [facility] [address] [id number] [place] [address]- 8913 Sep, [facility] [place] [facility] [address] [id number] [place] [address]- 3070 Sep, [facility] [place] [facility] [address] [id number] [place] [address]- 6119 Sep, [facility] [place] [facility] [address] [id number] [place] [address]- 9219 30 Aug, 2014 [facility] [place] [facility] [address] [id number] [place] [address]- 8492 30 Aug, 2014 [facility] [place] [facility] [address] [id number] [place] [address]- 4633 Aug, [facility] [place] [facility] [address] [id number] [place] [address]- 3165 Aug, [facility] [place] [facility] [address] [id number] [place] [address]- 0304 Aug, [facility] [place] [facility] [address] [id number] [place] [address]- 0999 Aug, [facility] [place] [facility] [address] [id number] [place] [address]- 2605 Aug, [facility] [place] [facility] [address] [id number] [place] [address]- 0316 Aug, [facility] [place] [facility] [address] [id number] [place] [address]- 3833 29 Jul, 2014 [facility] [place] [facility] [address] [id number] [place] [address]- 3477 29 Jul, 2014 [facility] [place] [facility] [address] [id number], [place] [address] 05 Jul, 2014 [facility] [place] [facility] [address] [id number], [place] [address]- [address] 05 Jul, 2013 [facility] [place] [facility] [address] [id number] [place] [address]- 8670 05 Jul, 2014 [facility] [place] [facility] [address] [id number] [place] [address]- 2103 05 Jul, 2013 [facility] [place] [facility] [address] [id number] [place] [address]- 4073 Jun, [facility] [place] [facility] [address] [id number] [place] [address]- 8421 Jun, [facility] [address] [id number] [place] [address]- 1845 May, [facility] [place] [facility] [address] [id number] [place] [address]- 2153 May, [facility] [address] [id number] [place] [address]- 3808 May, [facility] [place] [facility] [address] [id number] [place] [address]- 5280 May, [facility] [place] [facility] [address] [id number] [place] [address]- 8700 May, [facility] [place] [facility] [address] [id number] [place] [address]- 9698 May, [facility] [address] [id number] [place] [address]- 9932 May, [facility] [address] [id number] [place] [address]- 2874 May, [facility] [place] [facility] [address] [id number] [place] [address]- 0508 Apr, [facility] [address] [id number] [place] [address]- 5284 Apr, [facility] [place] [facility] [address] [id number] [place] [address]- 8815 March, [facility] [place] [facility] [address] [id number] [place] [address]- 7599 March, [facility] [place] [facility] [address] [id number] [place] [address]- 0852 Feb, [facility] [place] [facility] [address] [id number] [place] [address]- 7155 Feb, [facility] [place] [facility] [address] [id number] [place] [address]- 2503 Feb, [facility] [place] [facility] [address] [id number] [place] [address]- 0408 Feb, [facility] [place] [facility] [address] [id number] [place] [address]- 6580 Feb, [facility] [place] [facility] [address] [id number] [place] [address]- 0286 Feb, [facility] [place] [facility] [address] [id number] [place] [address]- 5322 Feb, [facility] [place] [facility] [address] [id number] [place] [address] Feb, [facility] [place] [facility] [address] [id number] [place] [address]- 5588 Feb, [facility] [place] [facility] [address] [id number] [place] [address]- 6694 Feb, [facility] [place] [facility] [address] [id number] [place] [address]- 8526 Jan, [facility] [place] [facility] [address] [id number] [place] [address]- 6541 Jan, [facility] [place] [facility] [address] [id number] [place] [address]- 0061 Jan, [facility] [place] [facility] [address] [id number] [place] [address]- 4200 Jan, [facility] [place] [facility] [address] [id number] [place] [address]- 1661 Jan, [facility] [place] [facility] [address] [id number] [place] [address]- 7226 Dec, [facility] [place] [facility] [address] [id number] [place] [address]- 1650 Dec, [facility] [place] [facility] [address] [id number] [place] [address]- 7974 Dec, [facility] [place] [facility] [address] [id number] [place] [address]- [address] 10 Dec, 2013 [facility] [place] [facility] [address] [id number] [place] [address]- 8291 Dec, [facility] [place] [facility] [address] [id number] [place] [address]- 1585 Dec, [facility] [place] [facility] [address] [id number] [place] [address]- 4321 Nov, [facility] [place] [facility] [address] [id number] [place] [address]- 8361 Nov, [facility] [place] [facility] [address] [id number] [place] [address]- 9680 Nov, [facility] [place] [facility] [address] [id number] [place] [address]- 0637 Nov, [facility] [place] [facility] [address] [id number] [place] [address]- 4305 Nov, [facility] [place] [facility] [address] [id number] [place] [address]- 6111 Nov, [facility] [place] [facility] [address] [id number] [place] [address]- 0704 Nov, [facility] [place] [facility] [address] [id number] [place] [address]- 7051 Nov, [facility] [place] [facility] [address] [id number] [place] [address]- 0841 Oct, [facility] [place] [facility] [address] [id number] [place] [address]- 2551 Oct, [facility] [place] [facility] [address] [id number] [place] [address]- 7932 Oct, [facility] [place] [facility] [address] [id number] [place] [address]- 6119 Oct, [facility] [place] [facility] [address] [id number] [place] [address]- 1054 Oct, [facility] [place] [facility] [address] [id number] [place] [address]- 7468 Oct, [facility] [place] [facility] [address] [id number] [place] [address]- 6975 Oct, [facility] [place] [facility] [address] [id number] [place] [address]- 1181 Oct, [facility] [place] [facility] [address] [id number] [place] [address]- 8499 Sep, [facility] [place] [facility] [address] [id number] [place] [address]- 5540 Sep, [facility] [place] [facility] [address] [id number] [place] [address]- 8788 Sep, [facility] [place] [facility] [address] [id number] [place] [address]- 9391 Sep, [facility] [place] [facility] [address] [id number] [place] [address]- 0463 Sep, [facility] [place] [facility] [address] [id number] [place] [address]- 1858 Sep, [facility] [place] [facility] [address] [id number] [place] [address]- 8980 Sep, [facility] [place] [facility] [address] [id number] [place] [address]- 8913 Sep, [facility] [place] [facility] [address] [id number], [place] [address]- 2650 Aug, [facility] [place] [facility] [address] [id number] [place] [address]- 3196 Aug, [facility] [place] [facility] [address] [id number] [place] [address]- 6069 Aug, [facility] [place] [facility] [address] [id number] [place] [address]- 9631 Jul, [facility] [place] [facility] [address] [id number] [place] [address]- 6953 Jun, [facility] [address] [id number] [place] [address]- 2780 Jun, [facility] [place] [facility] [address] [id number] [place] [address]- 4897 Jun, [facility] [place] [facility] [address] [id number] [place] [address]- 9133 Jun, [facility] [place] [facility] [address] [id number] [place] [address]- 2484 Jun, [facility] [place] [facility] [address] [id number] [place] [address]- 6142 May, [facility] [place] [facility] [address] [id number] [place] [address]- 1256 May, [facility] [place] [facility] [address] [id number] [place] 8549 Apr, [facility] [place] [facility] [address] [id number] [place] [address]- 1778 Apr, [facility] [place] [facility] [address] [id number] [place] [address]- 2855 March, [facility] [place] [facility] [address] [id number] [place] [address]- 8769 March, [facility] [place] [facility] [address] [id number] [place] [address]- 0600 March, [facility] [place] [facility] [address] [id number] [place] [address]- 2255 March, [facility] [place] [facility] [address] [id number] [place] [address]- 9137 March, [facility] [place] [facility] [address] [id number] [place] [address]- 1098 Feb, [facility] [place] [facility] [address] [id number] [place] [address]- 7663 Feb, [facility] [place] [facility] [address] [id number] [place] [address] 2547 Feb, [facility] [address] [id number] [place] [address]- 2069 Jan, [facility] [place] [facility] [address] [id number] [place] [address]- 4526 Dec, [facility] [address] [id number] [place] [address]- 2986 Dec, [facility] [place] [facility] [address] [id number] [place] [address]- 2982 Dec, [facility] [address] [id number] [place] [address]- 8896 Dec, [facility] [address] [id number] [place] [address]- 1332 Nov, [facility] [address] [id number] [place] [address]- 9137 Nov, [facility] [address] [id number] [place] [address]- 1738 Nov, [facility] [address] [id number] [place] [address]- 5525 Nov, [facility] [address] [id number] [place] [address]- 2266 Oct, [facility] [address] [id number] [place] [address]- 2959 Oct, [facility] [place] [facility] [address] [id number] [place] [address]- 2547 Oct, [facility] [place] [facility] [address] [id number] [place] [address]- 9486 06 Oct, 2012 [facility] [place] [facility] [address] [id number] [place] [address]- 2546 14 Sep, 2012 [facility] [place] [facility] [address] [id number] [place] [address]- 6933 14 Sep, 2012 [facility] [place] [facility] [address] [id number] [place] [address]- 5189 Sep, [facility] [place] [facility] [address] [id number] [place] [address]- 6466 Sep, [facility] [place] [facility] [address] [facility] [id number] [place] [address]- 8440 Sep, [facility] [place] [facility] [address] [id number] [place] [address]- 6769 Sep, [facility] [place] [facility] [address] [id number] [place] [address]- 6909 Aug, [facility] [place] [facility] [address] [id number] [place] [address], [place] [address]- 5815 Aug, [facility] [place] [facility] [address] [facility] [id number] [place] [address]- 8621 Aug, [facility] [place] [facility] [address] [id number] [place] [address]- 2965 Jul, [facility] [place] [facility] [address] [id number] [place] [address]- 5542 Jul, [facility] [place] [facility] [address] [facility] [id number] [place] [address]- 6024 Jun, [facility] [place] [facility] [address] [id number], [place] [address]- 0618 May, [facility] [place] [facility] [address] [id number], [place] [address]- 7831 May, [facility] [place] [facility] [address] [id number] [place] [address]- 8902 Apr, [facility] [place] [facility] [address] [facility] [id number], [place] [address]- 9206 Apr, [facility] [place] [facility] [address] [facility] [id number], [place] [address]- 2006 March, [facility] [place] [facility] [address] [id number] [place] [address]- 3562 07 Mar, 2012 [facility] [place] [facility] [address] [id number] [place] 19 Feb, 2012 [facility] [place] [facility] [address] [id number] [place] [address] 2546 16 Feb, 2012 [facility] [place] [facility] [address] [facility] [id number] [place] [address]- 1266 09 Feb, 2012 [facility] [place] [facility] [address] [id number] [place] [address] 2546 06 Feb, 2012 [facility] [place] [facility] [address] [id number] [place] [address]- 5748 15 Jan, 2012 [facility] [place] [facility] [address] [facility] [id number] [place] [address]- 8816 07 Jan, 2012 [facility] [place] [facility] [id number] [place] [address]- 0818 29 Dec, 2011 [facility] [place] [facility] [address] [facility] [id number] [place] [address]- 3054 28 Dec, 2011 [facility] [place] [facility] [id number] [place] [address]- 7835 26 Dec, 2011 [facility] [place] [facility] [address] [id number] [place] [address]- 2500 23 Dec, 2011 [facility] [place] [facility] [id number] [place] [address] 2546 20 Dec, 2011 [facility] [place] [facility] [address] [facility] [id number] [place] [address] 2546 15 Dec, 2011 [facility] [place] [facility] [address] [id number] [place] [address]- 9186 10 Dec, 2011 [facility] [place] [facility] [address] [facility] [id number] [place] [address]- 2546 09 Dec, 2011 [facility] [place] [facility] [id number] [place] [address]- 5891 08 Dec, 2011 [facility] [address] [id number] [place] [address]- 1057 Dec, [facility] [place] [facility] [address] [id number] [place] [address]- 4386 Dec, [facility] [place] [facility] [address] [id number] [place] [address]- 9106 Dec, [facility] [place] [facility] [address] [id number] [place] [address]- 9001 Dec, [facility] [place] [facility] [address] [id number] [place] [address]- 4362 Nov, [facility] [place] [facility] [address] [id number] [place] [address]- 0500 Nov, [facility] [place] [facility] [address] [id number] [place] [address]- 3993 Nov, [facility] [place] [facility] [address] [id number] [place] [address]- 2702 Nov, [facility] [place] [facility] [address] [id number] [place] [address]- 2104 Nov, [facility] [place] [facility] [address] [id number] [place] [address]- 6230 Nov, [facility] [place] [facility] [address] [id number], [place] [address]- 0620 Oct, [facility] [place] [facility] [address] [id number] [place] [address]- 0362 Oct, [facility] [place] [facility] [address] [id number] [place] [address]- 5246 Sep, [facility] [place] [facility] [address] [id number] [place] [address]- 0392 Sep, [facility] [place] [facility] [address] [id number] [place] [address]- 3401 Sep, [facility] [place] [facility] [address], [place] [address]- 4336 Sep, [facility] [address], [place] [address]- 5036 Sep, [facility] [address], [place] [address]- 3476 March, [facility] [id number] [place] [address]- 3427 Oct, [facility] [address], [place] [address]- 4509 Oct, [facility] [id number] [place] [address]- 6399 Oct, [facility] [address], [place] [address]- 6358 Sep, [facility] [id number] [place] [address]- 0728 Sep, [facility] [address], [place] [address]- 4258 Sep, [facility] [address], [place] [address]- 4379 Sep, [facility] [address], [place] [address]- 5439 Aug, [facility] [address], [place] [address]- 0636 Oct, [facility] [address] [id number], [place] [address]- 3740 Oct, [facility] [address], [place] [address]- 3023 May, IMMUNIZATIONS No Known Immunizations SOCIAL HISTORY Never Assessed REASON FOR VISIT Anxiety wanting to see if can increase. Reports she is taking valium BID but is still having some problems. CBrumbackRN PLAN OF CARE VITAL SIGNS Height 68 in 2018-01-15 Weight 254.9 lbs 2018-01-15 Temperature 98.3 degrees Fahrenheit 2018-01-15 Heart Rate 21 bpm 2018-01-15 Respiratory Rate 18 2018-01-15 BMI 38.75 kg/m2 2018-01-15 Blood pressure systolic 146 mmHg 2018-01-15 Blood pressure diastolic 90 mmHg 2018-01-15 MEDICATIONS Medication Instructions Dosage Frequency Start Date End Date Duration Status VESIcare 10 mg Orally Once a day 1 tablet 24h 11 Sep, 2017 90 Active Propranolol HCl 20 MG TAKE ONE TABLET BY MOUTH TWICE DAILY 90 Active Medical Compression Stockings N/A as directed Aug, Not- Taking Triamcinolone Acetonide 0.1 % Externally Twice a day 1 application to affected area 12h 07 Sep, 2017 Not-Taking Valium 10 MG Orally Twice a day 1 tablet 12h 30 Jan, 2015 28 days Active Pantoprazole Sodium 40 MG TAKE ONE TABLET BY MOUTH DAILY 90 Not- Taking Diflucan 150 MG 1 tablet Oct, 1 dose Not-Taking Amlodipine Besylate 10 mg TAKE ONE TABLET BY MOUTH DAILY 90 Active Advair Diskus 250-50 MCG/DOSE INHALE ONE PUFF BY MOUTH TWICE DAILY 30 Not-Taking Sertraline HCl 100 mg 2 tablets 24h 30 Not-Taking RESULTS No Results PROCEDURES No Known procedures INSTRUCTIONS MEDICATIONS ADMINISTERED No Known Medications MEDICAL (GENERAL) HISTORY Type Description Date Medical History hypertension Medical History panic attacks Surgical History cholecystectomy 2008 Hospitalization History surgery
--- OUTSIDE RECORDS SUMMARY | 2018-12-11 10:25 | XMS REPORT ---
Author Author LEIDA ANDINO Organization [facility] Address [address] [place] [address] Care Team Providers Care Certified Scrub Tech Name Role Phone LEIDA ANDINO Unavailable PROBLEMS Type Condition ICD9-CM Code [id number] Code Onset Dates Condition Status SNOMED Code Problem Stress incontinence of urine N39.3 Active 97516064 Problem Anxiety F41.9 Active 35294488 Problem Anxiety disorder, unspecified F41.9 Active 068594974 Problem Unspecified episodic mood disorder F39 Active 963420011 Problem Unspecified personality disorder F60.9 Active [id number] ALLERGIES No Information ENCOUNTERS Encounter Location Date Diagnosis [place] [id number] [place] [address] 13450- 2780 May, [facility] [id number] [place] [address] 70142- 9524 Apr, Anxiety disorder, unspecified F41.9 [place] [id number] [place] [address] 20582- 5117 Apr, Unspecified episodic mood disorder F39 ; Anxiety disorder, unspecified F41.9 and Unspecified personality disorder F60.9 [place] [id number] [place] [address] 37540- 5001 March, Anxiety disorder, unspecified F41.9 [place] [id number] [place] [address] 90266- 0379 March, Unspecified episodic mood disorder F39 ; Anxiety disorder, unspecified F41.9 and Unspecified personality disorder F60.9 [place] [id number] [place] [address] 34886- 0144 March, Anxiety disorder, unspecified F41.9 [place] [id number] [place] [address] 73727- 0033 Feb, Unspecified episodic mood disorder F39 ; Anxiety disorder, unspecified F41.9 and Unspecified personality disorder F60.9 [facility] [id number] [place] [address] 62435- 5092 Feb, Unspecified episodic mood disorder F39 ; Anxiety disorder, unspecified F41.9 and Unspecified personality disorder F60.9 [place] [id number] [place] [address] 69179- 5699 Feb, Anxiety disorder, unspecified F41.9 [facility] [address] [place] [address] 74898- 0685 Jan, Unspecified episodic mood disorder F39 ; Anxiety disorder, unspecified F41.9 and Unspecified personality disorder F60.9 [place] [id number] [place] [address] 76619- 6334 Jan, Anxiety F41.9 [place] [id number] [place] [address] 41127- 8586 Jan, Anxiety disorder, unspecified F41.9 [place] [address] [place] [address] 81810- 3977 Dec, Unspecified episodic mood disorder F39 ; Anxiety disorder, unspecified F41.9 and Unspecified personality disorder F60.9 [place] [address] [place] [address] 90771- 0926 Dec, Anxiety F41.9 [facility] [address] [place] [address] 31320- 2624 Dec, Anxiety disorder, unspecified F41.9 [facility] [id number] [place] [address] 52217- 2397 Dec, Unspecified episodic mood disorder F39 ; Anxiety disorder, unspecified F41.9 and Unspecified personality disorder F60.9 [place] [id number] [place] [address] 61280- 0748 Nov, [facility] [address] [address]- 2679 Nov, [facility] [address] [place] [address] 37551- 6262 Nov, Unspecified episodic mood disorder F39 ; Anxiety disorder, unspecified F41.9 and Unspecified personality disorder F60.9 [facility] [id number] [place] [address] 32901- 4758 Nov, Anxiety disorder, unspecified F41.9 [facility] [address] [place] [address] 65251- 8558 Oct, Unspecified episodic mood disorder F39 ; Anxiety disorder, unspecified F41.9 and Unspecified personality disorder F60.9 [facility] [address] [address]- 8674 Oct, Vaginal yeast infection B37.3 [facility] [address] [address]- 5579 Oct, [facility] [address] [place] [address] 04125- 2282 Oct, Anxiety disorder, unspecified F41.9 [facility] [address] [address]- 8360 Oct, Routine gynecological examination Z01.419 ; Screening for breast cancer Z12.31 and Vaginal yeast infection B37.3 [facility] [address] [address]- 5200 Sep, Unspecified episodic mood disorder F39 ; Anxiety disorder, unspecified F41.9 and Unspecified personality disorder F60.9 [facility] [address] [address]- 6704 Sep, [facility] [address] [address]- 8965 Sep, Anxiety disorder, unspecified F41.9 [facility] [id number] [place] [address] 97702- 7199 Sep, Bronchitis J40 and Stress incontinence of urine N39.3 [place] [address] 20824- 5666 Sep, Stress incontinence of urine N39.3 ; Bronchitis J40 and Anxiety F41.9 [place] [address] 00162- 5067 Sep, [place] [address] 60603- 1182 Sep, Unspecified episodic mood disorder F39 ; Anxiety disorder, unspecified F41.9 and Unspecified personality disorder F60.9 [place] [id number] [place] [address] 07571- 6320 Aug, Anxiety F41.9 ; Stress incontinence of urine N39.3 and Encounter for immunization Z23 [place] [address] 98739- 5693 Aug, Anxiety disorder, unspecified F41.9 [place] [address] 73911- 9520 Jul, Unspecified episodic mood disorder F39 ; Anxiety disorder, unspecified F41.9 and Unspecified personality disorder F60.9 [place] [id number] [place] [address] 56654- 6985 Jul, [place] [id number] [place] [address] 04422- 1954 Jul, Unspecified episodic mood disorder F39 ; Anxiety disorder, unspecified F41.9 and Unspecified personality disorder F60.9 [place] [id number] [place] [address] 62034- 2414 Jul, Anxiety disorder, unspecified F41.9 [place] [id number] [place] [address] 21578- 8029 Jun, Unspecified episodic mood disorder F39 ; Anxiety disorder, unspecified F41.9 and Unspecified personality disorder F60.9 [facility] [address] [place] [address] 71861- 5563 Jun, Anxiety disorder, unspecified F41.9 [facility] [id number] [place] [address] 25725- 2934 Jun, Unspecified episodic mood disorder F39 ; Anxiety disorder, unspecified F41.9 and Unspecified personality disorder F60.9 [facility] [id number] [place] [address] 81255- 0957 Jun, [facility] [id number] [place] [address] 97045- 7723 May, Anxiety disorder, unspecified F41.9 [facility] [id number] [place] [address] 36128- 5993 May, Unspecified episodic mood disorder F39 ; Anxiety disorder, unspecified F41.9 and Unspecified personality disorder F60.9 [facility] [id number] [place] [address] 83779- 0033 Apr, Anxiety disorder, unspecified F41.9 [facility] [id number] [place] [address] 36053- 7146 March, Unspecified episodic mood disorder F39 ; Anxiety disorder, unspecified F41.9 and Unspecified personality disorder F60.9 [facility] [id number] [place] [address] 10921- 9286 March, Bronchitis J40 [facility] [address] [place] [address] 55205- 7451 March, Unspecified episodic mood disorder F39 ; Anxiety disorder, unspecified F41.9 and Unspecified personality disorder F60.9 [facility] [address] [address]- 6483 Feb, [facility] [id number] [place] [address] 12516- 2396 Feb, Unspecified episodic mood disorder F39 ; Anxiety disorder, unspecified F41.9 and Unspecified personality disorder F60.9 [facility] [address] [address]- 0881 Feb, Bronchitis J40 [facility] [address] [address]- 7057 Feb, Unspecified episodic mood disorder F39 ; Anxiety disorder, unspecified F41.9 and Unspecified personality disorder F60.9 [facility] [address] [address]- 8651 Jan, Unspecified episodic mood disorder F39 ; Anxiety disorder, unspecified F41.9 and Unspecified personality disorder F60.9 [facility] [address] [address]- 5808 Jan, Bronchitis J40 [facility] [address] [place] [address] 83468- 1897 Jan, Unspecified episodic mood disorder F39 ; Anxiety disorder, unspecified F41.9 and Unspecified personality disorder F60.9 [facility] [address] [address]- 5751 Dec, Anxiety F41.9 [facility] [address] [address]- 9979 Dec, Unspecified episodic mood disorder F39 ; Anxiety disorder, unspecified F41.9 and Unspecified personality disorder F60.9 [facility] [id number] [address] Dec, [facility] [address] [address]- 5497 Dec, Unspecified episodic mood disorder F39 ; Anxiety disorder, unspecified F41.9 and Unspecified personality disorder F60.9 [facility] [address] [address]- 0673 Nov, [facility] [id number] [address]- 7274 Oct, Unspecified episodic mood disorder F39 ; Anxiety disorder, unspecified F41.9 and Unspecified personality disorder F60.9 [facility] [address] [address]- 5441 Oct, [facility] [address] [address] Oct, Acute upper respiratory infection, unspecified J06.9 ; Other viral agents as the cause of diseases classified elsewhere B97.89 and Cough R05 [facility] [id number] [place] [address] 24491- 9968 Aug, Unspecified episodic mood disorder F39 ; Anxiety disorder, unspecified F41.9 and Unspecified personality disorder F60.9 [facility] [id number] [address]- 1711 Aug, [facility] [id number] [place] [address] 02315- 9093 Aug, [facility] [id number] [place] [address] 47017- 0688 Aug, [facility] [id number] [place] [address] 79598- 5464 Aug, Visit for TB skin test Z11.1 [facility] [address] [address]- 7490 Jul, [facility] [address] [address]- 0778 Jul, [facility] [id number] [place] [address] 00389- 9001 Jul, [facility] [id number] [place] [address] 05070- 0695 Jul, [facility] [address] [address]- 1363 Jul, [facility] [address] [address]- 3444 Jul, Unspecified episodic mood disorder F39 ; Anxiety disorder, unspecified F41.9 and Unspecified personality disorder F60.9 [facility] [address] [facility] [id number] [address]- 4947 Jun, [facility] [address] [address]- 5468 Jun, Unspecified episodic mood disorder F39 ; Anxiety disorder, unspecified F41.9 and Unspecified personality disorder F60.9 [facility] [id number] [address]- 0065 Jun, [facility] [address] [address]- 0458 May, Unspecified episodic mood disorder F39 ; Anxiety disorder, unspecified F41.9 and Unspecified personality disorder F60.9 [facility] [address] [address]- 3168 May, [facility] [address] [address]- 4629 May, [facility] [address] [address]- 4849 May, Edema, unspecified R60.9 [facility] [address] [address]- 3355 Apr, [facility] [address] [address]- 3684 Apr, Unspecified episodic mood disorder F39 ; Anxiety disorder, unspecified F41.9 and Unspecified personality disorder F60.9 [facility] [id number] [address]- 0822 Apr, Anxiety F41.9 [facility] [id number] [address]- 3035 March, Unspecified episodic mood disorder F39 ; Anxiety disorder, unspecified F41.9 and Unspecified personality disorder F60.9 [facility] [address] [place] [address] 54152- 2578 March, Unspecified episodic mood disorder F39 ; Anxiety disorder, unspecified F41.9 and Unspecified personality disorder F60.9 [facility] [address] [place] [address] 21245- 5825 Feb, Anxiety F41.9 [facility] [id number] [place] [address] 39977- 9223 Feb, Unspecified episodic mood disorder F39 ; Anxiety disorder, unspecified F41.9 and Unspecified personality disorder F60.9 [place] [address] [place] [address] 57602- 9955 Jan, Unspecified episodic mood disorder F39 ; Anxiety disorder, unspecified F41.9 and Unspecified personality disorder F60.9 [place] [address] [place] [address] 20250- 5805 Jan, Unspecified episodic mood disorder F39 ; Anxiety disorder, unspecified F41.9 and Unspecified personality disorder F60.9 [place] [address] [place] [address] 85553- 6441 Jan, Edema, unspecified R60.9 [facility] [address] [address]- 2688 Dec, [facility] [address] [place] [address] 12889- 1102 Dec, [facility] [address] [place] [address] 86135- 9947 Dec, [facility] [address] [place] [address] 40683- 2459 Dec, Unspecified episodic mood disorder F39 ; Anxiety disorder, unspecified F41.9 and Unspecified personality disorder F60.9 [place] [id number] [address]- 0658 Nov, [facility] [id number] [place] [address] 45442- 9209 Nov, Unspecified episodic mood disorder F39 ; Anxiety disorder, unspecified F41.9 and Unspecified personality disorder F60.9 [facility] [address] [place] [address] 39954- 1655 Oct, Unspecified episodic mood disorder F39 ; Anxiety disorder, unspecified F41.9 and Unspecified personality disorder F60.9 [facility] [id number] [place] [address] 48253- 8933 Oct, Unspecified episodic mood disorder F39 ; Anxiety disorder, unspecified F41.9 and Unspecified personality disorder F60.9 [place] [id number] [place] [address] 08800- 9355 Sep, Unspecified episodic mood disorder F39 ; Anxiety disorder, unspecified F41.9 and Unspecified personality disorder F60.9 [place] [id number] [place] [address] 92839- 3165 Sep, Encounter for immunization Z23 [facility] [id number] [place] [address] 49291- 2649 Sep, Edema of left lower extremity R60.0 [facility] [address] [place] [address] 09323- 6600 Aug, Unspecified episodic mood disorder F39 ; Anxiety disorder, unspecified F41.9 and Unspecified personality disorder F60.9 [facility] [address] [address]- 2445 Aug, [facility] [id number] [place] [address] 49730- 6710 Aug, Edema of left lower extremity R60.0 [facility] [address] [address]- 2148 Aug, [facility] [address] [address]- 4342 Aug, Unspecified episodic mood disorder F39 ; Anxiety disorder, unspecified F41.9 and Unspecified personality disorder F60.9 [facility] [address] [address]- 6275 Jul, Unspecified episodic mood disorder 296.90 ; Anxiety disorder , unspecified 300.00 and Unspecified personality disorder 301.9 [facility] [id number] [place] [address] 20291- 6748 Jul, Unspecified episodic mood disorder 296.90 ; Anxiety disorder , unspecified 300.00 and Unspecified personality disorder 301.9 [facility] [id number] [place] [address] 75421- 2484 Jul, [facility] [id number] [place] [address] 66725- 8347 Jun, Unspecified episodic mood disorder 296.90 ; Anxiety disorder , unspecified 300.00 and Unspecified personality disorder 301.9 [facility] [address] [place] [address] 81803- 7320 May, Unspecified episodic mood disorder 296.90 ; Anxiety disorder , unspecified 300.00 and Unspecified personality disorder 301.9 [facility] [address] [address]- 0995 May, Anxiety disorder, unspecified 300.00 [facility] [id number] [place] [address] 71125- 9236 May, Anxiety disorder, unspecified 300.00 and Edema 782.3 [facility] [address] [place] [address] 75797- 4391 May, Unspecified episodic mood disorder 296.90 ; Anxiety disorder , unspecified 300.00 and Unspecified personality disorder 301.9 [facility] [address] [address]- 8205 Apr, [facility] [id number] [address]- 8517 Apr, Unspecified episodic mood disorder 296.90 ; Anxiety disorder , unspecified 300.00 and Personality disorder, unspecified 301.9 [facility] [address] [address]- 2784 Apr, Unspecified episodic mood disorder 296.90 ; Anxiety disorder , unspecified 300.00 and Unspecified personality disorder 301.9 [facility] [id number] [place] [address] 43930- 0626 March, [facility] [address] [place] [address] 78626- 0780 March, Unspecified episodic mood disorder 296.90 ; Anxiety disorder , unspecified 300.00 and Unspecified personality disorder 301.9 [facility] [address] [address]- 9067 March, Unspecified episodic mood disorder 296.90 ; Anxiety disorder 300.00 and Unspecified personality disorder 301.9 [facility] [address] [address]- 4606 March, [facility] [id number] [place] [address] 09698- 5968 March, [facility] [address] [address]- 6661 Feb, [facility] [address] [address]- 9761 Feb, [facility] [address] [address]- 6723 Feb, [facility] [id number]- 9483 Jan, [facility] [address] [address] 4183 Jan, [facility] [address] [address]- 2314 Jan, [facility] [place] [facility] [address] [id number] [place] [address]- 3204 Jan, [facility] [place] [facility] [address] [id number] [place] [address]- 6006 Jan, 2014 [facility] [place] [facility] [address] [facility] [id number] [place] [address]- 1676 Jan, 2014 [facility] [place] [facility] [address] [facility] [id number] [place] [id number] Jan, 2014 [facility] [place] [facility] [address] [id number] [place] [address]- 0909 Jan, 2014 [facility] [place] [facility] [address] [id number] [place] [address]- 6214 Jan, 2014 [facility] [place] [facility] [address] [facility] [id number] [place] [address]- 8986 Jan, 2014 [facility] [place] [facility] [address] [id number] [place] [address]- 1073 Jan, 2014 [facility] [place] [facility] [address] [id number] [place] [address]- 5273 Jan, [facility] [place] [facility] [address] [facility] [id number] [place] [address]- 8860 Jan, 2014 [facility] [place] [facility] [address] [facility] [id number] [place] [address]- 1779 Jan, 2014 [facility] [place] [facility] [address] [id number] [place] [address]- 4317 Jan, 2014 [facility] [place] [facility] [address] [id number] [place] [address]- 3909 Jan, [facility] [place] [facility] [address] [id number] [place] [address]- 2557 Dec, [facility] [place] [facility] [address] [facility] [id number] [place] [address]- 3264 Dec, [facility] [place] [facility] [address] [facility] [id number] [place] [address]- 5315 Dec, 2014 [facility] [address] [id number] [place]42 Dec, [facility] [address] [id number] [place] [address]- 9135 Nov, [facility] [address] [id number] [place] [address]- 3707 Nov, [facility] [address] [id number] [place] [address]- 3118 Nov, [facility] [address] [id number] [place] [address]- 9158 Nov, [facility] [address] [id number] [place] [address] Oct, [facility] [address] [id number] [place] [address] Oct, [facility] [address] [id number] [place] [address] Oct, [facility] [address] [id number] [place] [address] Oct, [facility] [address] [id number] [place] [address] Oct, [facility] [address] [id number] [place] [address] Oct, [facility] [place] [facility] [address] [id number] [place] [address] Oct, [facility] [place] [facility] [address] [id number] [place] [address] Oct, [facility] [place] [facility] [address] [id number] [place] [address] Oct, [facility] [place] [facility] [address] [id number] [place] [address] Oct, [facility] [place] [facility] [address] [id number] [place] [address] Oct, [facility] [place] [facility] [address] [id number] [place] [address] Oct, [facility] [place] [facility] [address] [id number] [place] [address] Oct, [facility] [place] [facility] [address] [id number] [place] [address] Oct, [facility] [place] [facility] [address] [id number] [place] [address] Oct, [facility] [place] [facility] [address] [id number] [place] [address] Oct, [facility] [place] [facility] [address] [id number] [place] [address] Sep, [facility] [place] [facility] [address] [id number] [place] [address] Sep, [facility] [place] [facility] [address] [id number] [place] [address]89 Sep, [facility] [place] [facility] [address] [id number] [place] [address] 2718 Sep, [facility] [place] [facility] [address] [id number] [place] [address] 8243 Sep, [facility] [place] [facility] [address] [id number] [place] [address] 2740 14 Sep, 2014 [facility] [place] [facility] [address] [id number] [place] [address] 4792 Sep, [facility] [place] [facility] [address] [id number] [place] [address] 4215 Sep, [facility] [place] [facility] [address] [id number] [place] [address]- 1062 Sep, [facility] [place] [facility] [address] [id number] [place] [address]- 0953 Sep, [facility] [place] [facility] [address] [id number] [place] [address] 9483 Aug, [facility] [place] [facility] [address] [id number] [place] [address]- 0689 30 Aug, 2014 [facility] [place] [facility] [address] [id number] [place] [address]- 6321 Aug, [facility] [place] [facility] [address] [id number] [place] [address] 8295 Aug, [facility] [place] [facility] [address] [id number] [place] [address]- 7946 Aug, [facility] [place] [facility] [address] [id number] [place] [address]- 0294 Aug, [facility] [place] [facility] [address] [id number] [place] [address]- 2096 Aug, [facility] [place] [facility] [address] [id number] [place] [address] Aug, [facility] [place] [facility] [address] [id number] [place] [address]- 8135 29 Jul, 2014 [facility] [place] [facility] [address] [id number] [place] [address]- 2497 29 Jul, 2014 [facility] [place] [facility] [address] [id number] [place] [address]- 0383 Jul, 2013 [facility] [place] [facility] [address] [id number] [place] [address]- 6405 05 Jul, 2013 [facility] [place] [facility] [address] [id number] [place] [address]- 4243 Jul, [facility] [place] [facility] [address] [id number] [place] [address] 9715 05 Jul, 2013 [facility] [place] [facility] [address] [id number] [place] [address]- 4098 Jun, [facility] [place] [facility] [address] [id number] [place] [address]- 6437 Jun, [facility] [place] [facility] [address] [id number] [place] [address]- 6479 May, [facility] [place] [facility] [address] [id number] [place] [address]- 0428 May, [facility] [place] [facility] [address] [id number] [place] [address]- 3613 May, [facility] [place] [facility] [address] [id number] [place] [address]- 7286 May, [facility] [place] [facility] [address] [id number] [place] [address]- 7912 May, [facility] [place] [facility] [address] [id number] [place] [address]- 9310 May, [facility] [place] [facility] [address] [id number] [place] [address]- 6894 May, [facility] [place] [facility] [address] [id number] [place] [address]- 0734 May, [facility] [place] [facility] [address] [id number] [place] [address]- 6955 Apr, [facility] [place] [facility] [address] [id number] [place] [address]- 9743 Apr, [facility] [place] [facility] [address] [id number] [place] [address]- 8567 March, [facility] [place] [facility] [address] [id number] [place] [address]- 6233 March, [facility] [place] [facility] [address] [id number] [place] [address]- 1608 Feb, [facility] [place] [facility] [address] [id number] [place] [address]- 0135 Feb, [facility] [place] [facility] [address] [id number] [place] [address]- 4121 Feb, [facility] [place] [facility] [address] [id number] [place] [address]- 8702 Feb, [facility] [place] [facility] [address] [id number] [place] [address]- 8692 Feb, [facility] [place] [facility] [address] [id number] [place] [address] 1897 Feb, [facility] [place] [facility] [address] [id number] [place] [address]- 2724 Feb, [facility] [place] [facility] [address] [id number] [place] [address]- 1445 Feb, [facility] [place] [facility] [address] [id number] [place] [address]- 4826 Feb, [facility] [place] [facility] [address] [id number] [place] [address]- 9187 Feb, [facility] [place] [facility] [address] [id number] [place] [address]- 5823 Jan, [facility] [place] [facility] [address] [id number] [place] [address]- 8907 Jan, [facility] [place] [facility] [address] [id number] [place] [address]- 4219 Jan, [facility] [place] [facility] [address] [id number] [place] [address]- 6643 Jan, [facility] [place] [facility] [address] [id number] [place] [address]- 5219 Jan, [facility] [place] [facility] [address] [id number] [place] [address] 3566 Dec, [facility] [place] [facility] [address] [id number] [place] [address] 1899 Dec, [facility] [place] [facility] [address] [id number] [place] [address]- 6166 Dec, [facility] [place] [facility] [address] [id number] [place] [address]- 6321 10 Dec, 2013 [facility] [address] [id number] [place] [address]- 8161 Dec, [facility] [place] [facility] [address] [id number] [place] [address]- 7380 Dec, [facility] [place] [facility] [address] [id number] [place] [address]- 6101 Nov, [facility] [place] [facility] [address] [id number] [place] [address]- 5438 Nov, [facility] [place] [facility] [address] [id number] [place] [address]- 4754 Nov, [facility] [place] [facility] [address] [id number] [place] [address]- 0672 Nov, [facility] [address] [id number] [place] [address]- 9338 Nov, [facility] [place] [facility] [address] [id number] [place] [address]- 6391 Nov, [facility] [place] [facility] [address] [id number] [place] [address]- 1962 Nov, [facility] [place] [facility] [address] [facility] [id number] [place] [address]- 7665 Nov, [facility] [place] [facility] [address] [id number] [place] [address]- 7651 Oct, [facility] [place] [facility] [address] [id number] [place] [address]- 1330 Oct, [facility] [place] [facility] [address] [id number] [place] [address]- 7752 Oct, [facility] [place] [facility] [address] [id number] [place] [address]- 8103 Oct, [facility] [place] [facility] [address] [id number] [place] [address]- 9536 Oct, [facility] [place] [facility] [address] [id number] [place] [address]- 5408 Oct, [facility] [place] [facility] [address] [id number] [place] [address]- 0213 Oct, [facility] [place] [facility] [address] [id number] [place] [address]- 0877 Oct, [facility] [place] [facility] [address] [id number] [place] [address]- 0029 Sep, [facility] [place] [facility] [address] [id number] [place] [address]- 9754 Sep, [facility] [place] [facility] [address] [id number] [place] [address]- 8254 Sep, [facility] [place] [facility] [address] [id number] [place] [address]- 8331 Sep, [facility] [place] [facility] [address] [id number] [place] [address]- 4267 Sep, [facility] [place] [facility] [address] [id number] [place] [address]- 7562 Sep, [facility] [place] [facility] [address] [id number] [place] [address]- 0272 Sep, [facility] [place] [facility] [address] [id number] [place] [address]- 7959 Sep, [facility] [place] [facility] [address] [id number] [place] [address]- 1590 Aug, [facility] [place] [facility] [address] [id number] [place] [address]- 8344 Aug, [facility] [place] [facility] [address] [id number] [place] [address]- 2842 Aug, [facility] [place] [facility] [address] [id number] [place] [address]- 6011 Jul, [facility] [place] [facility] [address] [id number] [place] [address]- 9936 Jun, [facility] [address] [id number] [place] [address]- 0519 Jun, [facility] [place] [facility] [address] [id number] [place] [address]- 9458 Jun, [facility] [place] [facility] [address] [id number] [place] [address]- 0752 Jun, [facility] [place] [facility] [address] [id number] [place] [address]- 8076 Jun, [facility] [place] [facility] [address] [id number] [place] [address]- 7109 May, [facility] [place] [facility] [address] [id number] [place] [address]- 8383 May, [facility] [place] [facility] [address] [id number] [place] [address]- 7635 Apr, [facility] [place] [facility] [address] [id number] [place] [address]- 3436 Apr, [facility] [place] [facility] [address] [id number] [place] [address]- 1395 March, [facility] [place] [facility] [address] [id number] [place] [address]- 4279 March, [facility] [place] [facility] [address] [id number] [place] [address]- 6827 March, [facility] [place] [facility] [address] [id number] [place] [address]- 5231 March, [facility] [place] [facility] [address] [id number] [place] [address]- 2809 March, [facility] [place] [facility] [address] [id number] [place] [address]- 5164 Feb, [facility] [place] [facility] [address] [id number] [place] [address]- 2939 Feb, [facility] [place] [facility] [address] [id number] [place] [address] 2546 Feb, [facility] [address] [id number] [place] [address]- 3329 Jan, [facility] [place] [facility] [address] [id number] [place] [address]- 9296 Dec, [facility] [address] [id number] [place] [address]- 6146 Dec, [facility] [place] [facility] [address] [id number] [place] [address]- 8949 Dec, [facility] [address] [id number] [place] [address]- 8996 Dec, [facility] [address] [id number] [place] [address]- 7117 Nov, [facility] [address] [id number] [place] [address]- 3851 Nov, [facility] [address] [id number] [place] [address]- 5419 Nov, [facility] [address] [id number] [place] [address]- 2000 Nov, [facility] [address] [id number] [place] [address] Oct, [facility] [place] [facility] [address] [id number] [place] [address]- 5899 Oct, [facility] [address] [id number] [place] [address]- 2546 Oct, [facility] [place] [facility] [address] [id number] [place] [address]- 6796 Oct, [facility] [place] [facility] [address] [id number] [place] [address]- 2546 Sep, [facility] [place] [facility] [address] [id number] [place] [address]- 9059 14 Sep, 2012 [facility] [place] [facility] [address] [id number] [place] [address]- 5334 Sep, [facility] [place] [facility] [address] [id number] [place] [address]- 1820 Sep, [facility] [place] [facility] [address] [id number] [place] [address]- 5953 Sep, [facility] [place] [facility] [address] [id number] [place] [address]- 5531 Sep, [facility] [place] [facility] [address] [id number] [place] [address]- 1040 Aug, [facility] [place] [facility] [address] [id number] [place] [address]- 5901 Aug, [facility] [place] [facility] [address] [facility] [id number] [place] [address]- 7361 Aug, [facility] [place] [facility] [address] [id number] [place] [address]- 1515 Jul, [facility] [place] [facility] [address] [id number] [place] [address]- 1197 Jul, [facility] [place] [facility] [address] [facility] [id number] [place] [address]- 3501 Jun, [facility] [place] [facility] [address] [id number] [place] [address]- 1594 May, [facility] [place] [facility] [address] [id number] [place] [address]- 7323 May, [facility] [place] [facility] [address] [id number] [place] [address]- 6003 Apr, [facility] [place] [facility] [address] [id number] [place] [address]- 0143 Apr, [facility] [place] [facility] [address] [facility] [id number] [place] [address]- 9901 March, [facility] [place] [facility] [address] [id number] [place] [address]- 7116 07 Mar, 2012 [facility] [address] [id number] [place] [address]- 9156 19 Feb, 2012 [facility] [place] [facility] [address] [id number] [place] [address]- 7696 16 Feb, 2012 [facility] [place] [facility] [address] [facility] [id number] [place] [address]- 0746 09 Feb, 2012 [facility] [place] [facility] [address] [id number] [place] [address]- 3086 06 Feb, 2012 [facility] [place] [facility] [address] [id number] [place] [address]- 9485 15 Jan, 2012 [facility] [place] [facility] [address] [id number] [place] [address]- 7606 07 Jan, 2012 [facility] [place] [facility] [address] [id number] [place] [address]- 7508 29 Dec, 2011 [facility] [place] [facility] [address] [id number] [place] [address]- 9987 28 Dec, 2011 [facility] [place] [facility] [address] [id number] [place] [address]- 0130 26 Dec, 2011 [facility] [place] [facility] [address] [facility] [id number] [place] [address]- 7352 23 Dec, 2011 [facility] [place] [facility] [address] [id number] [place] [address] 2546 20 Dec, 2011 [facility] [place] [facility] [address] [id number] [place] [address] 2546 15 Dec, 2011 [facility] [place] [facility] [address] [id number] [place] [address]- 3546 10 Dec, 2011 [facility] [place] [facility] [address] [facility] [id number] [place] [address]- 2546 09 Dec, 2011 [facility] [place] [facility] [address] [place] [address]- 8407 08 Dec, 2011 [facility] [place] [facility] [address] [id number] [place] [address]- 5435 Dec, [facility] [place] [facility] [address] [id number] [place] [address]- 5336 Dec, [facility] [place] [facility] [address] [id number] [place] [address]- 7166 Dec, [facility] [place] [facility] [address] [id number] [place] [address]- 4003 Dec, [facility] [place] [facility] [address] [id number] [place] [address]- 7396 Nov, [facility] [place] [facility] [address] [id number] [place] [address]- 1535 Nov, [facility] [place] [facility] [address] [id number] [place] [address]- 3333 Nov, [facility] [place] [facility] [address] [id number] [place] [address]- 1694 Nov, [facility] [place] [facility] [address] [id number] [place] [address]- 9619 Nov, [facility] [place] [facility] [address] [id number] [place] [address]- 0521 Nov, [facility] [place] [facility] [address] [id number] [place] [address]- 2634 Oct, [facility] [place] [facility] [address] [id number] [place] [address]- 4780 Oct, [facility] [place] [facility] [address] [id number] [place] [address]- 4149 Sep, [facility] [place] [facility] [address] [id number] [place] [address]- 2179 Sep, [facility] [place] [facility] [address] [id number] [place] [address]- 9958 Sep, [facility] [place] [facility] [address]00565100[address] [place] [address]- 2546 Sep, [facility] [address]00565100[address] [place] [address]- 8156 Sep, [facility] [address]00565100[address] [place] [address]- 2546 March, [facility] [address]00565100[address] [place] [address]- 6446 Oct, [facility] [address] [facility] [id number] [place] [address]- 2546 Oct, [facility] [id number] [place] [address]- 0126 Oct, [facility] [address]00565100[address] [place] [address]- 3926 Sep, [facility] [id number] [place] [address]- 8776 Sep, [facility] [address]00565100[address] [place] [address]- 3375 Sep, [facility] [address]00565100[address] [place] [address]- 7523 Sep, [facility] [address]00565100[address] [place] [address]- 5206 Aug, [facility] [address]00565100[address] [place] [address]- 2546 Oct, [facility] [address]00565100[address] [place] [address]- 2546 Oct, [facility] [address]00565100[address] [place] [address]- 0326 May, IMMUNIZATIONS No Known Immunizations SOCIAL HISTORY Never Assessed REASON FOR VISIT Valium PLAN OF CARE VITAL SIGNS MEDICATIONS Medication [...]
--- OUTSIDE RECORDS SUMMARY | 2018-12-11 10:26 | XMS REPORT ---
Author Author SANJEEV PHELPS [facility] eClinicalWorks Address Unknown Phone Unavailable Care Team Providers Care Sales Department Supervisor Name Role Phone SANJEEV PHELPS Unavailable Allergies No Known Allergies Problems Problem Type Condition Code Onset Dates Condition Status Problem Candidiasis of vulva and vagina 112.1 Active Problem Unspecified breast screening V76.10 Active Problem Screening for malignant neoplasm of the cervix V76.2 Active Problem Anxiety disorder, unspecified F41.9 Active Problem Unspecified personality disorder F60.9 Active Problem Unspecified episodic mood disorder F39 Active Problem PPV23 (PNEUMOVAX) DX V03.82 Active Problem Need for prophylactic vaccination and inoculation, Influenza V04.81 Active Problem Edema 782.3 Active Problem Screening examination for pulmonary tuberculosis V74.1 Active Assessment Unspecified personality disorder F60.9 Active Assessment Anxiety disorder, unspecified F41.9 Active Assessment Unspecified episodic mood disorder F39 Active Problem Urge incontinence 788.31 Active Medications No Known Medications Procedures Procedure Coding System Code Date Psychotherapy, patient &/family, 45 minutes, established patient CPT-4 [id number] Nov 10, 2015 Results No Known Results Summary Purpose eClinicalWorks Submission
--- OUTSIDE RECORDS SUMMARY | 2018-12-11 10:26 | XMS REPORT ---
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 Name Role Phone SANJEEV PHELPS Unavailable PROBLEMS Type Condition ICD9-CM Code [id number] Code Onset Dates Condition Status SNOMED Code Problem Stress incontinence of urine N39.3 Active 40174051 Problem Anxiety F41.9 Active 66920631 Problem Anxiety disorder, unspecified F41.9 Active 275673563 Problem Unspecified episodic mood disorder F39 Active 188068320 Problem Unspecified personality disorder F60.9 Active 72912749 ALLERGIES No Information ENCOUNTERS Encounter Location Date Diagnosis [place] [id number] [place] [address] 51739- 0164 May, [place] [id number] [place] [address] 36904- 7255 Apr, Unspecified episodic mood disorder F39 ; Anxiety disorder, unspecified F41.9 and Unspecified personality disorder F60.9 [place] [id number] [place] [address] 99471- 7551 March, Anxiety disorder, unspecified F41.9 [place] [id number] [place] [address] 55279- 7225 March, Unspecified episodic mood disorder F39 ; Anxiety disorder, unspecified F41.9 and Unspecified personality disorder F60.9 [place] [address] 88853- 5401 March, Anxiety disorder, unspecified F41.9 [place] [id number] [place] [address] 48807- 0886 Feb, Unspecified episodic mood disorder F39 ; Anxiety disorder, unspecified F41.9 and Unspecified personality disorder F60.9 [facility] [address], [place] [address] 3[address] Feb, Unspecified episodic mood disorder F39 ; Anxiety disorder, unspecified F41.9 and Unspecified personality disorder F60.9 [facility] [address], [place] [address] 6711 Feb, Anxiety disorder, unspecified F41.9 [facility] [id number] [place] [address] 67602- 9565 Jan, Unspecified episodic mood disorder F39 ; Anxiety disorder, unspecified F41.9 and Unspecified personality disorder F60.9 [facility] [id number] [place] [address] 55752- 9908 Jan, Anxiety F41.9 [facility] [id number] [place] [address] 29963- 8111 Jan, Anxiety disorder, unspecified F41.9 [facility] [id number] [place] [address] 81484- 2567 Dec, Unspecified episodic mood disorder F39 ; Anxiety disorder, unspecified F41.9 and Unspecified personality disorder F60.9 [facility] [address], [place] [address]- 3525 Dec, Anxiety F41.9 [facility] [id number] [place] [address] 98455- 7362 Dec, Anxiety disorder, unspecified F41.9 [facility] [id number] [place] [address] 17926- 5870 Dec, Unspecified episodic mood disorder F39 ; Anxiety disorder, unspecified F41.9 and Unspecified personality disorder F60.9 [facility] [address], [place] [address]- 4795 Nov, [facility] [id number] [place] [address] 69193- 8514 Nov, [facility] [address], [place] [address]- 9291 Nov, Unspecified episodic mood disorder F39 ; Anxiety disorder, unspecified F41.9 and Unspecified personality disorder F60.9 [facility] [address], [place] [address]- 8844 Nov, Anxiety disorder, unspecified F41.9 [facility] [id number] [place] [address] 63668- 0077 Oct, Unspecified episodic mood disorder F39 ; Anxiety disorder, unspecified F41.9 and Unspecified personality disorder F60.9 [place] [id number] [place] [address] 62867- 5843 Oct, Vaginal yeast infection B37.3 [place] [id number] [place] [address] 96899- 7756 Oct, [place] [id number] [place] [address] 51365- 1084 Oct, Anxiety disorder, unspecified F41.9 [place] [id number] [place] [address] 16206- 2161 Oct, Routine gynecological examination Z01.419 ; Screening for breast cancer Z12.31 and Vaginal yeast infection B37.3 [facility] [id number] [place] [address] 54125- 4219 Sep, Unspecified episodic mood disorder F39 ; Anxiety disorder, unspecified F41.9 and Unspecified personality disorder F60.9 [facility] [id number] [place] [address] 05761- 5705 Sep, [place] [id number] [place] [address] 54020- 4857 Sep, Anxiety disorder, unspecified F41.9 [facility] [id number] [place] [address] 19876- 4811 Sep, Bronchitis J40 and Stress incontinence of urine N39.3 [facility] [id number] [place] [address] 93897- 0734 Sep, Stress incontinence of urine N39.3 ; Bronchitis J40 and Anxiety F41.9 [facility] [id number] [place] [address] 90363- 5150 Sep, [place] [id number] [place] [address] 19614- 8374 Sep, Unspecified episodic mood disorder F39 ; Anxiety disorder, unspecified F41.9 and Unspecified personality disorder F60.9 [place] [id number] [place] [address] 58804- 7222 Aug, Anxiety F41.9 ; Stress incontinence of urine N39.3 and Encounter for immunization Z23 [place] [id number] [place] [address] 77364- 8645 Aug, Anxiety disorder, unspecified F41.9 [place] [id number] [place] [address] 33730- 6580 Jul, Unspecified episodic mood disorder F39 ; Anxiety disorder, unspecified F41.9 and Unspecified personality disorder F60.9 [place] [id number] [place] [address] 10031- 3507 Jul, [place] [id number] [place] [address] 95662- 7299 Jul, Unspecified episodic mood disorder F39 ; Anxiety disorder, unspecified F41.9 and Unspecified personality disorder F60.9 [place] [id number] [place] [address] 92277- 7519 Jul, Anxiety disorder, unspecified F41.9 [place] [id number] [place] [address] 54803- 2251 Jun, Unspecified episodic mood disorder F39 ; Anxiety disorder, unspecified F41.9 and Unspecified personality disorder F60.9 [place] [id number] [place] [address] 69917- 6267 Jun, Anxiety disorder, unspecified F41.9 [facility] [id number] [place] [address] 72673- 3224 Jun, Unspecified episodic mood disorder F39 ; Anxiety disorder, unspecified F41.9 and Unspecified personality disorder F60.9 [facility] [id number] [place] [address] 71496- 7495 Jun, [facility] [id number] [place] [address] 98477- 9722 May, Anxiety disorder, unspecified F41.9 [place] [id number] [place] [address] 09236- 4435 May, Unspecified episodic mood disorder F39 ; Anxiety disorder, unspecified F41.9 and Unspecified personality disorder F60.9 [place] [id number] [place] [address] 55732- 7628 Apr, Anxiety disorder, unspecified F41.9 [place] [id number] [place] [address] 11957- 8414 March, Unspecified episodic mood disorder F39 ; Anxiety disorder, unspecified F41.9 and Unspecified personality disorder F60.9 [place] [id number] [place] [address] 38492- 1178 March, Bronchitis J40 [facility] [id number] [place] [address] 13346- 5409 March, Unspecified episodic mood disorder F39 ; Anxiety disorder, unspecified F41.9 and Unspecified personality disorder F60.9 [place] [id number] [place] [address] 05539- 8211 Feb, [facility] [id number] [place] [address] 18282- 9368 Feb, Unspecified episodic mood disorder F39 ; Anxiety disorder, unspecified F41.9 and Unspecified personality disorder F60.9 [facility] [address], [place] [address]- 0585 Feb, Bronchitis J40 [facility] [id number] [place] [address] 82285- 4066 Feb, Unspecified episodic mood disorder F39 ; Anxiety disorder, unspecified F41.9 and Unspecified personality disorder F60.9 [facility] [id number] [place] [address] 56400- 1499 Jan, Unspecified episodic mood disorder F39 ; Anxiety disorder, unspecified F41.9 and Unspecified personality disorder F60.9 [facility] [id number] [place] [address] 41144- 4949 Jan, Bronchitis J40 [facility] [id number] [place] [address] 78659- 3969 Jan, Unspecified episodic mood disorder F39 ; Anxiety disorder, unspecified F41.9 and Unspecified personality disorder F60.9 [facility] [address], [place] [address]- 1632 Dec, Anxiety F41.9 [facility] [id number] [place] [address] 42670- 1356 Dec, Unspecified episodic mood disorder F39 ; Anxiety disorder, unspecified F41.9 and Unspecified personality disorder F60.9 [place] [id number] [id number] Dec, [facility] [id number] [place] [address] 80001- 7156 Dec, Unspecified episodic mood disorder F39 ; Anxiety disorder, unspecified F41.9 and Unspecified personality disorder F60.9 [facility] [address], [place] [address]- 7177 Nov, [facility] [address], [place] [address]- 6734 Oct, Unspecified episodic mood disorder F39 ; Anxiety disorder, unspecified F41.9 and Unspecified personality disorder F60.9 [facility] [address], [place] [address]- 6563 Oct, [facility] [address], [place] [address] -[address]24 Oct, Acute upper respiratory infection, unspecified J06.9 ; Other viral agents as the cause of diseases classified elsewhere B97.89 and Cough R05 [facility] [id number] [place] [address] 58807- 2038 Aug, Unspecified episodic mood disorder F39 ; Anxiety disorder, unspecified F41.9 and Unspecified personality disorder F60.9 [facility] [id number] [place] [address] 01450- 6745 Aug, [facility] [id number] [place] [address] 10792- 8718 Aug, [facility] [id number] [place] [address] 09431- 4479 Aug, [facility] [id number] [place] [address] 64377- 8525 Aug, Visit for TB skin test Z11.1 [facility] [id number] [place] [address] 64671- 0892 Jul, [facility] [address], [place] [address]- 4608 Jul, [facility] [address], [place] [address]- 5197 Jul, [facility] [id number] [place] [address] 16758- 0167 Jul, [facility] [id number] [place] [address] 46490- 1733 Jul, [facility] [address], [place] [address]- 8561 Jul, Unspecified episodic mood disorder F39 ; Anxiety disorder, unspecified F41.9 and Unspecified personality disorder F60.9 [facility] [address], [place] [address]- 2857 Jun, [facility] [id number] [place] [address] 87973- 1619 Jun, Unspecified episodic mood disorder F39 ; Anxiety disorder, unspecified F41.9 and Unspecified personality disorder F60.9 [facility] [id number] [place] [address] 65435- 1925 Jun, [facility] [id number] [place] [address] 35598- 7942 May, Unspecified episodic mood disorder F39 ; Anxiety disorder, unspecified F41.9 and Unspecified personality disorder F60.9 [facility] [id number] [place] [address] 86913- 3187 May, [facility] [id number] [place] [address] 03197- 3414 May, [facility] [id number] [place] [address] 29138- 0906 May, Edema, unspecified R60.9 [facility] [id number] [place] [address] 54473- 3053 Apr, [facility] [id number] [place] [address] 75967- 3386 Apr, Unspecified episodic mood disorder F39 ; Anxiety disorder, unspecified F41.9 and Unspecified personality disorder F60.9 [facility] [address], [place] [address]- 5304 Apr, Anxiety F41.9 [facility] [id number] [place] [address] 01948- 7895 March, Unspecified episodic mood disorder F39 ; Anxiety disorder, unspecified F41.9 and Unspecified personality disorder F60.9 [facility] [id number], [place] [address]- 1269 March, Unspecified episodic mood disorder F39 ; Anxiety disorder, unspecified F41.9 and Unspecified personality disorder F60.9 [facility] [address], [place] [address]- 5996 Feb, Anxiety F41.9 [facility] [id number] [place] [address] 23621- 4452 Feb, Unspecified episodic mood disorder F39 ; Anxiety disorder, unspecified F41.9 and Unspecified personality disorder F60.9 [facility] [id number] [place] [address] 54898- 6406 Jan, Unspecified episodic mood disorder F39 ; Anxiety disorder, unspecified F41.9 and Unspecified personality disorder F60.9 [facility] [address], [place] [address]- 9632 Jan, Unspecified episodic mood disorder F39 ; Anxiety disorder, unspecified F41.9 and Unspecified personality disorder F60.9 [facility] [id number] [place] [address] 24649- 5384 Jan, Edema, unspecified R60.9 [facility] [address], [place] [address]- 1091 Dec, [facility] [address], [place] [address]- 3108 Dec, [facility] [address], [place] [address]- 8414 Dec, [facility] [id number] [place] [address] 65752- 3428 Dec, Unspecified episodic mood disorder F39 ; Anxiety disorder, unspecified F41.9 and Unspecified personality disorder F60.9 [facility] [address], [place] [address]- 0837 Nov, [facility] [id number] [place] [address] 82925- 0059 Nov, Unspecified episodic mood disorder F39 ; Anxiety disorder, unspecified F41.9 and Unspecified personality disorder F60.9 [place] [id number] [place] [address] 73663- 2741 Oct, Unspecified episodic mood disorder F39 ; Anxiety disorder, unspecified F41.9 and Unspecified personality disorder F60.9 [place] [id number] [place] [address] 86082- 9037 Oct, Unspecified episodic mood disorder F39 ; Anxiety disorder, unspecified F41.9 and Unspecified personality disorder F60.9 [place] [id number] [place] [address] 94785- 2692 Sep, Unspecified episodic mood disorder F39 ; Anxiety disorder, unspecified F41.9 and Unspecified personality disorder F60.9 [place] [address] 41809- 5198 Sep, Encounter for immunization Z23 [place] [id number] [place] [address] 24127- 5246 Sep, Edema of left lower extremity R60.0 [place] [id number] [place] [address] 56559- 1673 Aug, Unspecified episodic mood disorder F39 ; Anxiety disorder, unspecified F41.9 and Unspecified personality disorder F60.9 [place] [id number] [place] [address] 65771- 4713 Aug, [place] [id number] [place] [address] 68456- 9473 Aug, Edema of left lower extremity R60.0 [facility] [id number] [place] [address] 76547- 3506 Aug, [facility] [id number] [place] [address] 82169- 3711 Aug, Unspecified episodic mood disorder F39 ; Anxiety disorder, unspecified F41.9 and Unspecified personality disorder F60.9 [facility] [address], [place] [address]- 9330 Jul, Unspecified episodic mood disorder 296.90 ; Anxiety disorder , unspecified 300.00 and Unspecified personality disorder 301.9 [facility] [id number] [place] [address] 73958- 3708 Jul, Unspecified episodic mood disorder 296.90 ; Anxiety disorder , unspecified 300.00 and Unspecified personality disorder 301.9 [facility] [id number] [place] [address] 76809- 2118 Jul, [facility] [id number] [place] [address] 34222- 9731 Jun, Unspecified episodic mood disorder 296.90 ; Anxiety disorder , unspecified 300.00 and Unspecified personality disorder 301.9 [facility] [id number] [place] [address] 84486- 7079 May, Unspecified episodic mood disorder 296.90 ; Anxiety disorder , unspecified 300.00 and Unspecified personality disorder 301.9 [facility] [id number] [place] [address] 44960- 2513 May, Anxiety disorder, unspecified 300.00 [facility] [id number] [place] [address] 37503- 2579 May, Anxiety disorder, unspecified 300.00 and Edema 782.3 [facility] [id number] [place] [address] 06138- 2424 May, Unspecified episodic mood disorder 296.90 ; Anxiety disorder , unspecified 300.00 and Unspecified personality disorder 301.9 [facility] [id number] [place] [address] 02732- 7824 Apr, [facility] [id number] [place] [address] 79233- 0268 Apr, Unspecified episodic mood disorder 296.90 ; Anxiety disorder , unspecified 300.00 and Personality disorder, unspecified 301.9 [facility] [address], [place] [address]- 2030 Apr, Unspecified episodic mood disorder 296.90 ; Anxiety disorder , unspecified 300.00 and Unspecified personality disorder 301.9 [facility] [address], [place] [address]- 6404 March, [facility] [id number] [address]- 5622 March, Unspecified episodic mood disorder 296.90 ; Anxiety disorder , unspecified 300.00 and Unspecified personality disorder 301.9 [facility] [address], [place] [address]- 7649 March, Unspecified episodic mood disorder 296.90 ; Anxiety disorder 300.00 and Unspecified personality disorder 301.9 [facility] [address], [place] [address]- 5820 March, [facility] [address], [place] [address]- 5222 March, [facility] [address], [place] [address]- 8207 Feb, [facility] [address], [place] [address]- 4843 Feb, [facility] [address], [place] [address]- 8611 Feb, [facility] [address], [place] [address]- 0516 Jan, [facility] [address], [place] [address]- 3413 Jan, [facility] [address] [address] 4694 Jan, [facility] [address], [place] [address]- 3463 Jan, [facility] [place] [facility] [address] [id number] [place] [address]- 9324 Jan, [facility] [place] [facility] [address] [id number] [place] 4156 Jan, [facility] [place] [facility] [address] [id number] [place] [id number] Jan, [facility] [place] [facility] [address] [id number] [place] [address]- 3182 Jan, 2014 [facility] [place] [facility] [address] [id number] [place] [address]- 5680 Jan, 2014 [facility] [place] [facility] [address] [id number] [place] [address]- 2272 Jan, 2014 [facility] [place] [facility] [address] [id number] [place] [address]- 9918 Jan, 2014 [facility] [place] [facility] [address] [id number] [place] [address]- 7634 Jan, 2014 [facility] [place] [facility] [address] [id number] [place] [address]- 8731 Jan, [facility] [place] [facility] [address] [id number] [place] [address]- 8566 Jan, 2014 [facility] [place] [facility] [address] [id number] [place] [address]- 3254 Jan, 2014 [facility] [place] [facility] [address] [id number], [place] [address]- 8923 Jan, [facility] [place] [facility] [address] [id number] [place] [id number] Dec, [facility] [place] [facility] [address] [id number] [place] [address] Dec, 2014 [facility] [place] [facility] [address] [id number] [place] [address] Dec, 2014 [facility] [place] [facility] [address] [id number], [place] [address] Dec, [facility] [address] [id number] [place] [address] Nov, [facility] [place] [facility] [address] [id number] [place] [address] Nov, [facility] [place] [facility] [address] [address] [id number] [place] [address] Nov, [facility] [place] [facility] [address] [id number] [place] [address] Nov, [facility] [place] [facility] [address] [id number] [place] [address] 4343 Oct, [facility] [place] [facility] [address] [id number] [place] [address] 2347 Oct, [facility] [place] [facility] [address] [id number] [place] [address]- 5373 Oct, [facility] [place] [facility] [address] [id number] [place] [address]- 8631 Oct, [facility] [place] [facility] [address] [id number] [place] [address]- 5972 Oct, [facility] [place] [facility] [address] [id number] [place] [address]- 2306 Oct, [facility] [place] [facility] [address] [id number] [place] [address] 2079 Oct, [facility] [place] [facility] [address] [id number] [place] [address]- 6959 Oct, [facility] [place] [facility] [address] [id number] [place] [address]- 1194 Oct, [facility] [place] [facility] [address] [id number] [place] [address] 3960 Oct, [facility] [place] [facility] [address] [id number] [place] [address]- 5174 Oct, [facility] [place] [facility] [address] [id number] [place] [address]- 2207 Oct, [facility] [place] [facility] [address] [id number] [place] [address]- 6799 Oct, [facility] [place] [facility] [address] [id number] [place] [address]- 3242 Oct, [facility] [place] [facility] [address] [id number] [place] [address]- 9282 Oct, [facility] [place] [facility] [address] [id number] [place] [address]- 2614 Oct, [facility] [place] [facility] [address] [id number] [place] [address]- 3568 Sep, [facility] [place] [facility] [address] [id number] [place] [address]- 1120 Sep, [facility] [place] [facility] [address] [id number] [place] [address]- 3286 Sep, [facility] [place] [facility] [address] [id number] [place] [address]- 4364 Sep, [facility] [place] [facility] [address] [id number] [place] [address]- 1705 Sep, [facility] [place] [facility] [address] [id number] [place] [address]- 9182 Sep, [facility] [place] [facility] [address] [id number] [place] [address]- 7560 Sep, [facility] [place] [facility] [address] [id number] [place] [address]- 1686 Sep, [facility] [place] [facility] [address] [id number] [place] [address]- 8690 Sep, [facility] [place] [facility] [address] [id number] [place] [address]- 1818 Sep, [facility] [place] [facility] [address] [id number] [place] [address]- 0170 Aug, [facility] [place] [facility] [address] [id number] [place] [address]- 0950 30 Aug, 2014 [facility] [place] [facility] [address] [id number] [place] [address]- 2595 Aug, [facility] [place] [facility] [address] [id number] [place] [address]- 9256 Aug, [facility] [place] [facility] [address] [id number] [place] [address]- 1014 Aug, [facility] [place] [facility] [address] [id number] [place] [address]- 8635 Aug, [facility] [place] [facility] [address] [id number] [place] [address]- 4006 Aug, [facility] [place] [facility] [address] [id number] [place] [address]- 1254 Aug, [facility] [place] [facility] [address] [id number] [place] [address]- 3124 29 Jul, 2014 [facility] [place] [facility] [address] [id number] [place] [address]- 0410 29 Jul, 2014 [facility] [place] [facility] [address] [id number] [place] [address]- 6207 05 Jul, 2014 [facility] [place] [facility] [address] [id number], [place] [address]- 7440 Jul, [facility] [place] [facility] [address] [id number], [place] [address]- 5616 05 Jul, 2014 [facility] [place] [facility] [address] [id number] [place] [address]- 4031 Jul, [facility] [place] [facility] [address] [id number] [place] [address]- 5663 Jun, [facility] [place] [facility] [address] [id number] [place] [address]- 3136 Jun, [facility] [place] [facility] [address] [id number] [place] [address]- 0486 May, [facility] [place] [facility] [address] [id number] [place] [address]- 0748 May, [facility] [place] [facility] [address] [id number] [place] [address]- 9854 May, [facility] [place] [facility] [address] [id number] [place] [address]- 3530 May, [facility] [place] [facility] [address] [id number] [place] [address]- 7160 May, [facility] [place] [facility] [address] [id number] [place] [address]- 4438 May, [facility] [place] [facility] [address] [id number] [place] [address]- 7466 May, [facility] [place] [facility] [address] [id number] [place] [address]- 2061 May, [facility] [place] [facility] [address] [id number] [place] [address]- 4970 Apr, [facility] [place] [facility] [address] [id number] [place] [address]- 8346 Apr, [facility] [place] [facility] [address] [id number] [place] [address]- 9642 March, [facility] [place] [facility] [address] [id number] [place] [address]- 6473 March, [facility] [place] [facility] [address] [id number] [place] [address]- 7019 Feb, [facility] [place] [facility] [address] [id number] [place] [address]- 8472 Feb, [facility] [place] [facility] [address] [id number] [place] [address]- 3444 Feb, [facility] [place] [facility] [address] [id number] [place] [address]- 1621 Feb, [facility] [place] [facility] [address] [id number] [place] [address]- 4808 Feb, [facility] [place] [facility] [address] [id number] [place] [address]- 4582 Feb, [facility] [place] [facility] [address] [id number] [place] [address]- 8856 Feb, [facility] [place] [facility] [address] [id number] [place] [address]- 0219 Feb, [facility] [place] [facility] [address] [id number] [place] [address]- 6209 Feb, [facility] [place] [facility] [address] [id number] [place] [address]- 8475 Feb, [facility] [place] [facility] [address] [id number] [place] [address]- 5289 Jan, [facility] [place] [facility] [address] [id number] [place] [address]- 0502 Jan, [facility] [place] [facility] [address] [id number] [place] [address]- 8954 Jan, [facility] [place] [facility] [address] [id number] [place] [address]- 8447 Jan, [facility] [place] [facility] [address] [id number] [place] [address]- 1660 Jan, [facility] [place] [facility] [address] [id number] [place] [address]- 1831 Dec, [facility] [place] [facility] [address] [id number] [place] [address]- 2691 Dec, [facility] [place] [facility] [address] [id number] [place] [address]- 4027 Dec, [facility] [place] [facility] [address] [id number] [place] [address]- 3824 Dec, [facility] [place] [facility] [address] [id number], [place] [address]- 7826 Dec, [facility] [address] [id number] [place] [address]- 3969 Dec, [facility] [place] [facility] [address] [id number] [place] [address]- 1870 Nov, [facility] [place] [facility] [address] [id number] [place] [address]- 1547 Nov, [facility] [place] [facility] [address] [id number] [place] [address]- 0607 Nov, [facility] [place] [facility] [address] [id number] [place] [address]- 6228 Nov, [facility] [place] [facility] [address] [id number] [place] [address]- 0848 Nov, [facility] [address] [facility] [id number] [place] [address]- 1279 Nov, [facility] [place] [facility] [address] [id number] [place] [address]- 6348 Nov, [facility] [address] [id number] [place] [address]- 2887 Nov, [facility] [address] [facility] [id number] [place] [address]- 0326 Oct, [facility] [place] [facility] [address] [id number], [place] [address]- 0064 Oct, [facility] [place] [facility] [address] [id number], [place] [address]- 2209 Oct, [facility] [place] [facility] [address] [id number], [place] [address]- 0059 Oct, [facility] [place] [facility] [address] [id number], [place] [address]- 3819 Oct, [facility] [place] [facility] [address] [facility] [id number], [place] [address]- 8828 Oct, [facility] [place] [facility] [address] [id number] [place] [address]- 9028 Oct, [facility] [place] [facility] [address] [id number] [place] [address]- 6485 Oct, [facility] [place] [facility] [address] [id number] [place] [address]- 3796 Sep, [facility] [place] [facility] [address] [id number] [place] [address]- 3871 Sep, [facility] [place] [facility] [address] [id number] [place] [address]- 9180 Sep, [facility] [place] [facility] [address] [id number] [place] [address]- 6163 Sep, [facility] [place] [facility] [address] [id number] [place] [address]- 0447 Sep, [facility] [place] [facility] [address] [id number] [place] [address]- 9418 Sep, [facility] [place] [facility] [address] [id number] [place] [address]- 3177 Sep, [facility] [place] [facility] [address] [id number] [place] [address]- 8946 Sep, [facility] [place] [facility] [address] [id number] [place] [address]- 6606 Aug, [facility] [place] [facility] [address] [id number] [place] [address]- 7411 Aug, [facility] [place] [facility] [address] [id number] [place] [address]- 0343 Aug, [facility] [place] [facility] [address] [id number] [place] [address]- 8103 Jul, [facility] [place] [facility] [address] [id number] [place] [address]- 9460 Jun, [facility] [place] [facility] [address] [id number] [place] [address]- 9659 Jun, [facility] [address] [id number] [place] [address]- 4568 Jun, [facility] [place] [facility] [address] [id number] [place] [address]- 0678 Jun, [facility] [place] [facility] [address] [id number] [place] [address]- 0602 Jun, [facility] [place] [facility] [address] [id number] [place] [address]- 9050 May, [facility] [address] [id number] [place] [address]- 6496 May, [facility] [address] [id number] [place] [address]- 5073 Apr, [facility] [place] [facility] [address] [id number] [place] [address]- 9013 Apr, [facility] [place] [facility] [address] [id number] [place] [address]- 8988 March, [facility] [place] [facility] [address] [id number] [place] [address]- 3291 March, [facility] [place] [facility] [address] [id number] [place] [address]- 8565 March, [facility] [place] [facility] [address] [id number] [place] [address]- 4366 March, [facility] [place] [facility] [address] [id number] [place] [address]- 7666 March, [facility] [place] [facility] [address] [id number] [place] [address]- 2919 Feb, [facility] [place] [facility] [address] [id number] [place] [address]- 8501 Feb, [facility] [place] [facility] [address] [id number] [place] [address]- 3355 Feb, [facility] [place] [facility] [address] [id number] [place] [address]- 7570 Jan, [facility] [address] [id number] [place] [address]- 6966 Dec, [facility] [address] [id number] [place] [address]- 7866 Dec, [facility] [address] [id number] [place] [address]- 3416 18 Dec, 2012 [facility] [address] [id number] [place] [address]- 4533 Dec, [facility] [address] [id number] [place] [address]- 4617 Nov, [facility] [address] [id number] [place] [address]- 6964 Nov, [facility] [address] [id number] [place] [address]- 5230 Nov, [facility] [address] [id number] [place] [address]- 9942 Nov, [facility] [address] [id number] [place] [address]- 7017 Oct, [facility] [address] [id number] [place] [address]- 3208 Oct, [facility] [address] [id number] [place] [address] 2546 Oct, [facility] [address] [id number] [place] [address]- 8306 Oct, [facility] [address] [id number] [place] [address]- 2766 14 Sep, 2012 [facility] [address] [id number] [place] [address]- 2666 14 Sep, 2012 [facility] [address] [id number] [place] [address]- 4062 Sep, [facility] [place] [facility] [address] [id number] [place] [address]- 1561 Sep, [facility] [place] [facility] [address] [id number] [place] [address]- 1016 Sep, [facility] [place] [facility] [address] [id number] [place] [address]- 8356 Sep, [facility] [place] [facility] [address] [id number] [place] [address]- 3206 Aug, [facility] [place] [facility] [address] [id number] [place] [address]- 0563 Aug, [facility] [place] [facility] [address] [id number] [place] [address]- 2246 Aug, [facility] [place] [facility] [address] [id number] [place] [address]- 0526 Jul, [facility] [place] [facility] [address] [id number] [place] [address]- 5332 Jul, [facility] [place] [facility] [address] [id number] [place] [address]- 4149 Jun, [facility] [place] [facility] [address] [id number], [place] [address]- 6707 May, [facility] [place] [facility] [address] [id number], [place] [address]- 1311 May, [facility] [place] [facility] [address] [id number], [place] [address]- 6887 Apr, [facility] [place] [facility] [address] [id number] [place] [address]- 0774 Apr, [facility] [place] [facility] [address] [id number], [place] [address]- 0106 March, [facility] [place] [facility] [address] [facility] [id number], [place] [address]- 2526 March, [facility] [place] [facility] [address] [id number], [place] [address]- 4111 19 Feb, 2012 [facility] [place] [facility] [address] [id number] [place] [address]- 0086 16 Feb, 2012 [facility] [place] [facility] [address] [facility] [id number] [place] [address]- 7506 09 Feb, 2012 [facility] [place] [facility] [address] [id number] [address]- 4456 06 Feb, 2012 [facility] [place] [facility] [address] [facility] [id number] [place] [address]- 2440 15 Jan, 2012 [facility] [place] [facility] [address] [facility] [id number] [place] [address]- 4996 07 Jan, 2012 [facility] [place] [facility] [address] [facility] [id number] [place] [address]- 2346 29 Dec, 2011 [facility] [place] [facility] [address] [id number] [address]- 5363 28 Dec, 2011 [facility] [place] [facility] [address] [facility] [id number] [place] [address]- 6288 26 Dec, 2011 [facility] [place] [facility] [id number] [address]- 5131 23 Dec, 2011 [facility] [place] [facility] [address] [id number] [address]- 9053 20 Dec, 2011 [facility] [place] [facility] [id number] [address]- 2696 15 Dec, 2011 [facility] [place] [facility] [address] [facility] [id number] [place] [address]- 6138 10 Dec, 2011 [facility] [place] [facility] [address] [id number] [address]- 6586 09 Dec, 2011 [facility] [place] [facility] [address] [id number] [address]- 5806 08 Dec, 2011 [facility] [place] [facility] [id number] 3134 Dec, [facility] [address] [id number] [place] [address]- 5795 Dec, [facility] [place] [facility] [address] [id number] [place] [address]- 6876 Dec, [facility] [place] [facility] [address] [id number] [place] [address]- 6479 Dec, [facility] [place] [facility] [address] [id number] [place] [address]- 6135 Nov, [facility] [place] [facility] [address] [id number] [place] [address]- 2694 Nov, [facility] [place] [facility] [address] [id number] [place] [address]- 6895 Nov, [facility] [place] [facility] [address] [id number] [place] [address]- 9920 Nov, [facility] [place] [facility] [address] [id number] [place] [address]- 4930 Nov, [facility] [place] [facility] [address] [id number] [place] [address]- 2844 Nov, [facility] [place] [facility] [address] [id number] [place] [address]- 0898 Oct, [facility] [place] [facility] [address] [id number] [place] [address]- 2778 Oct, [facility] [place] [facility] [address] [id number], [place] [address]- 9789 Sep, [facility] [place] [facility] [address] [id number] [place] [address]- 4657 Sep, [facility] [place] [facility] [address] [id number] [place] [address]- 5577 Sep, [facility] [place] [facility] [address] [id number] [place] [address]- 1734 Sep, [facility] [place] [facility] [address]00565[place], [place] [address] 2546 Sep, [facility] [address]00565[place], [place] [address]- 8120 March, [facility] [address]00565[place], [place] [address]- 3999 Oct, [facility] [address]00565[address], [place] [address]- 3819 Oct, [facility] [address]00565[address], [place] [address]- 4425 Oct, [facility] [id number], [place] [address]- 7526 Sep, [facility] [address]00565[place], [place] [address]- 9872 Sep, [facility] [address]00565[address], [place] [address]- 4969 Sep, [facility] [address]00565[address], [place] [address]- 1604 Sep, [facility] [address]00565[address], [place] [address]- 6303 Aug, [facility] [address]00565[address], [place] [address]- 0423 Oct, [facility] [address]00565[address], [place] [address]- 3086 Oct, [facility] [address] [id number], [place] [address]- 6028 May, IMMUNIZATIONS No Known Immunizations SOCIAL HISTORY Never Assessed REASON FOR VISIT f/u PLAN OF CARE Activity Details Follow Up 3 Weeks Reason: F/U VITAL SIGNS MEDICATIONS Unknown Medications RESULTS No Results PROCEDURES Procedure Date Ordered Result Body Site Psychotherapy, patient &/family, 45 minutes, established patient Nov 16, 2017 INSTRUCTIONS MEDICATIONS ADMINISTERED No Known Medications MEDICAL (GENERAL) HISTORY Type Description Date Medical History hypertension Medical History panic attacks Surgical History cholecystectomy 2009 Hospitalization History surgery
--- OUTSIDE RECORDS SUMMARY | 2018-12-11 10:26 | XMS REPORT ---
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
--- OUTSIDE RECORDS SUMMARY | 2018-12-11 10:27 | XMS REPORT ---
Author Author LEIDA ANDINO Organization [facility] Address [address] [place] [address] Care Team Providers Care Water Conservation Specialist Name Role Phone LEIDA ANDINO Unavailable PROBLEMS Type Condition ICD9-CM Code SBA84-NB Code Onset Dates Condition Status SNOMED Code Problem Stress incontinence of urine N39.3 Active 18939246 Problem Anxiety F41.9 Active 01328601 Problem Anxiety disorder, unspecified F41.9 Active [id number] Problem Unspecified episodic mood disorder F39 Active 102798015 Problem Unspecified personality disorder F60.9 Active [id number] ALLERGIES No Information ENCOUNTERS Encounter Location Date Diagnosis [place] [id number] [place] [address] 38400- 1853 Apr, [place] [id number] [place] [address] 03290- 0214 March, Anxiety disorder, unspecified F41.9 [place] [id number] [place] [address] 73781- 4565 March, Unspecified episodic mood disorder F39 ; Anxiety disorder, unspecified F41.9 and Unspecified personality disorder F60.9 [place] [id number] [place] [address] 73710- 1694 March, Anxiety disorder, unspecified F41.9 [place] [id number] [place] [address] 64636- 7591 Feb, Unspecified episodic mood disorder F39 ; Anxiety disorder, unspecified F41.9 and Unspecified personality disorder F60.9 [place] [id number] [place] [address] 14517- 8701 Feb, Unspecified episodic mood disorder F39 ; Anxiety disorder, unspecified F41.9 and Unspecified personality disorder F60.9 [facility] [address], [place] [address] 5[address] Feb, Anxiety disorder, unspecified F41.9 [facility] [id number] [place] [address] 18481- 7396 Jan, Unspecified episodic mood disorder F39 ; Anxiety disorder, unspecified F41.9 and Unspecified personality disorder F60.9 [facility] [id number] [place] [address] 94627- 4954 Jan, Anxiety F41.9 [facility] [id number] [place] [address] 97483- 1954 Jan, Anxiety disorder, unspecified F41.9 [facility] [id number] [place] [address] 32733- 3251 Dec, Unspecified episodic mood disorder F39 ; Anxiety disorder, unspecified F41.9 and Unspecified personality disorder F60.9 [facility] [id number] [place] [address] 61206- 5425 Dec, Anxiety F41.9 [facility] [id number] [place] [address] 02242- 5234 Dec, Anxiety disorder, unspecified F41.9 [facility] [address] [address] 0036 Dec, Unspecified episodic mood disorder F39 ; Anxiety disorder, unspecified F41.9 and Unspecified personality disorder F60.9 [facility] [address], [place] [address] 8754 Nov, [facility] [id number] [place] [address] 04411- 5584 Nov, [facility] [id number] [place] [address] 57002- 5081 Nov, Unspecified episodic mood disorder F39 ; Anxiety disorder, unspecified F41.9 and Unspecified personality disorder F60.9 [place] [address] [address] 9844 Nov, Anxiety disorder, unspecified F41.9 [place] [id number] [place] [address] 94920- 9718 Oct, Unspecified episodic mood disorder F39 ; Anxiety disorder, unspecified F41.9 and Unspecified personality disorder F60.9 [place] [id number] [place] [address] 61720- 1008 Oct, Vaginal yeast infection B37.3 [place] [id number] [place] [address] 82958- 8438 Oct, [place] [id number] [place] [address] 71124- 9876 Oct, Anxiety disorder, unspecified F41.9 [place] [id number] [place] [address] 56474- 2195 Oct, Routine gynecological examination Z01.419 ; Screening for breast cancer Z12.31 and Vaginal yeast infection B37.3 [place] [id number] [place] [address] 88147- 6879 Sep, Unspecified episodic mood disorder F39 ; Anxiety disorder, unspecified F41.9 and Unspecified personality disorder F60.9 [place] [id number] [place] [address] 16215- 4593 Sep, [place] [id number] [place] [address] 26729- 5581 Sep, Anxiety disorder, unspecified F41.9 [place] [id number] [place] [address] 72467- 6244 Sep, Bronchitis J40 and Stress incontinence of urine N39.3 [place] [id number] [place] [address] 69687- 2576 Sep, Stress incontinence of urine N39.3 ; Bronchitis J40 and Anxiety F41.9 [place] [id number] [address]- 3272 Sep, [facility] [id number] [place] [address] 29448- 7967 Sep, Unspecified episodic mood disorder F39 ; Anxiety disorder, unspecified F41.9 and Unspecified personality disorder F60.9 [facility] [id number] [place] [address] 24269- 9020 Aug, Anxiety F41.9 ; Stress incontinence of urine N39.3 and Encounter for immunization Z23 [facility] [id number] [place] [address] 33817- 4850 Aug, Anxiety disorder, unspecified F41.9 [place] [id number] [place] [address] 93028- 7849 Jul, Unspecified episodic mood disorder F39 ; Anxiety disorder, unspecified F41.9 and Unspecified personality disorder F60.9 [place] [id number] [place] [address] 07502- 4054 Jul, [facility] [id number] [place] [address] 19428- 4925 Jul, Unspecified episodic mood disorder F39 ; Anxiety disorder, unspecified F41.9 and Unspecified personality disorder F60.9 [facility] [id number] [place] [address] 62694- 9263 Jul, Anxiety disorder, unspecified F41.9 [facility] [id number] [place] [address] 62163- 2847 Jun, Unspecified episodic mood disorder F39 ; Anxiety disorder, unspecified F41.9 and Unspecified personality disorder F60.9 [facility] [id number] [place] [address] 73459- 0889 Jun, Anxiety disorder, unspecified F41.9 [facility] [id number] [place] [address] 39887- 9810 Jun, Unspecified episodic mood disorder F39 ; Anxiety disorder, unspecified F41.9 and Unspecified personality disorder F60.9 [facility] [address], [place] [address]- 2761 Jun, [facility] [id number] [place] [address] 86013- 1832 May, Anxiety disorder, unspecified F41.9 [facility] [id number] [place] [address] 31164- 2267 May, Unspecified episodic mood disorder F39 ; Anxiety disorder, unspecified F41.9 and Unspecified personality disorder F60.9 [facility] [id number] [place] [address] 49338- 3866 Apr, Anxiety disorder, unspecified F41.9 [facility] [id number] [place] [address] 61992- 4530 March, Unspecified episodic mood disorder F39 ; Anxiety disorder, unspecified F41.9 and Unspecified personality disorder F60.9 [facility] [id number] [place] [address] 21578- 5070 March, Bronchitis J40 [facility] [id number] [place] [address] 65686- 8616 March, Unspecified episodic mood disorder F39 ; Anxiety disorder, unspecified F41.9 and Unspecified personality disorder F60.9 [facility] [id number] [place] [address] 88889- 5545 Feb, [facility] [id number] [place] [address] 27915- 4485 Feb, Unspecified episodic mood disorder F39 ; Anxiety disorder, unspecified F41.9 and Unspecified personality disorder F60.9 [facility] [id number] [place] [address] 50913- 9082 Feb, Bronchitis J40 [facility] [id number] [place] [address] 59109- 3920 Feb, Unspecified episodic mood disorder F39 ; Anxiety disorder, unspecified F41.9 and Unspecified personality disorder F60.9 [facility] [id number] [place] [address] 18429- 3879 Jan, Unspecified episodic mood disorder F39 ; Anxiety disorder, unspecified F41.9 and Unspecified personality disorder F60.9 [facility] [address], [place] [address]- 8596 Jan, Bronchitis J40 [facility] [id number] [place] [address] 05632- 0960 Jan, Unspecified episodic mood disorder F39 ; Anxiety disorder, unspecified F41.9 and Unspecified personality disorder F60.9 [facility] [id number] [place] [address] 18998- 0702 Dec, Anxiety F41.9 [place] [id number] [place] [address] 40361- 4654 Dec, Unspecified episodic mood disorder F39 ; Anxiety disorder, unspecified F41.9 and Unspecified personality disorder F60.9 [facility] [id number] [id number] Dec, [facility] [id number] [place] [address] 17875- 5609 Dec, Unspecified episodic mood disorder F39 ; Anxiety disorder, unspecified F41.9 and Unspecified personality disorder F60.9 [facility] [address], [place] [address]- 4897 Nov, [facility] [id number] [place] [address] 11010- 2798 Oct, Unspecified episodic mood disorder F39 ; Anxiety disorder, unspecified F41.9 and Unspecified personality disorder F60.9 [facility] [id number] [place] [address] 53421- 8096 Oct, [facility] [id number] [place] [address] 00847 -0595 Oct, Acute upper respiratory infection, unspecified J06.9 ; Other viral agents as the cause of diseases classified elsewhere B97.89 and Cough R05 [facility] [address], [place] [address]- 7120 Aug, Unspecified episodic mood disorder F39 ; Anxiety disorder, unspecified F41.9 and Unspecified personality disorder F60.9 [facility] [id number] [place] [address] 77319- 7949 Aug, [facility] [id number] [place] [address] 01332- 7562 Aug, [facility] [id number] [place] [address] 39268- 1956 Aug, [facility] [id number] [place] [address] 93063- 6336 Aug, Visit for TB skin test Z11.1 [facility] [id number], [place] [address]- 7481 Jul, [facility] [id number] [place] [address] 09655- 8357 Jul, [facility] [address], [place] [address]- 4717 Jul, [facility] [address], [place] [address]- 9117 Jul, [facility] [address], [place] [address]- 5244 Jul, [facility] [id number] [place] [address] 93858- 3226 Jul, Unspecified episodic mood disorder F39 ; Anxiety disorder, unspecified F41.9 and Unspecified personality disorder F60.9 [facility] [address], [place] [address]- 6917 Jun, [facility] [id number] [address]- 0511 Jun, Unspecified episodic mood disorder F39 ; Anxiety disorder, unspecified F41.9 and Unspecified personality disorder F60.9 [facility] [address] [place] [address] 30898- 5148 Jun, [facility] [id number] [place] [address] 05811- 7696 May, Unspecified episodic mood disorder F39 ; Anxiety disorder, unspecified F41.9 and Unspecified personality disorder F60.9 [facility] [id number] [place] [address] 13719- 2101 May, [facility] [id number] [place] [address] 64220- 7496 May, [facility] [id number] [place] [address] 08564- 9632 May, Edema, unspecified R60.9 [facility] [address], [place] [address]- 9198 Apr, [facility] [id number] [place] [address] 72933- 9448 Apr, Unspecified episodic mood disorder F39 ; Anxiety disorder, unspecified F41.9 and Unspecified personality disorder F60.9 [facility] [address], [place] [address]- 1316 Apr, Anxiety F41.9 [facility] [address], [place] [address]- 6518 March, Unspecified episodic mood disorder F39 ; Anxiety disorder, unspecified F41.9 and Unspecified personality disorder F60.9 [facility] [id number] [place] [address] 15909- 5125 March, Unspecified episodic mood disorder F39 ; Anxiety disorder, unspecified F41.9 and Unspecified personality disorder F60.9 [facility] [id number] [place] [address] 85161- 1501 Feb, Anxiety F41.9 [facility] [id number] [place] [address] 28983- 8506 Feb, Unspecified episodic mood disorder F39 ; Anxiety disorder, unspecified F41.9 and Unspecified personality disorder F60.9 [facility] [id number] [place] [address] 23749- 0883 Jan, Unspecified episodic mood disorder F39 ; Anxiety disorder, unspecified F41.9 and Unspecified personality disorder F60.9 [facility] [address] [place] [address] 99817- 5398 Jan, Unspecified episodic mood disorder F39 ; Anxiety disorder, unspecified F41.9 and Unspecified personality disorder F60.9 [facility] [id number] [place] [address] 71838- 0801 Jan, Edema, unspecified R60.9 [facility] [id number] [place] [address] 18440- 0878 Dec, [facility] [id number] [place] [address] 35181- 2143 Dec, [facility] [id number] [place] [address] 76979- 0228 Dec, [facility] [id number] [place] [address] 83276- 8740 Dec, Unspecified episodic mood disorder F39 ; Anxiety disorder, unspecified F41.9 and Unspecified personality disorder F60.9 [facility] [id number] [place] [address] 63221- 3591 Nov, [facility] [id number] [place] [address] 95638- 0684 Nov, Unspecified episodic mood disorder F39 ; Anxiety disorder, unspecified F41.9 and Unspecified personality disorder F60.9 [facility] [id number] [place] [address]- 2546 Oct, Unspecified episodic mood disorder F39 ; Anxiety disorder, unspecified F41.9 and Unspecified personality disorder F60.9 [place] [id number] [place] [address] 59024- 9807 Oct, Unspecified episodic mood disorder F39 ; Anxiety disorder, unspecified F41.9 and Unspecified personality disorder F60.9 [place] [id number] [place] [address] 17570- 7895 Sep, Unspecified episodic mood disorder F39 ; Anxiety disorder, unspecified F41.9 and Unspecified personality disorder F60.9 [place] [id number] [place] [address] 42722- 1106 Sep, Encounter for immunization Z23 [place] [id number] [place] [address] 61994- 8557 Sep, Edema of left lower extremity R60.0 [facility] [id number] [place] [address] 77067- 4327 Aug, Unspecified episodic mood disorder F39 ; Anxiety disorder, unspecified F41.9 and Unspecified personality disorder F60.9 [place] [id number] [place] [address] 39827- 2918 Aug, [facility] [id number] [place] [address] 74323- 1874 Aug, Edema of left lower extremity R60.0 [facility] [id number] [place] [address] 20964- 9489 Aug, [facility] [id number] [place] [address] 61880- 1715 Aug, Unspecified episodic mood disorder F39 ; Anxiety disorder, unspecified F41.9 and Unspecified personality disorder F60.9 [facility] [id number] [place] [address] 72586- 5190 Jul, Unspecified episodic mood disorder 296.90 ; Anxiety disorder , unspecified 300.00 and Unspecified personality disorder 301.9 [facility] [address] [address]- 3509 Jul, Unspecified episodic mood disorder 296.90 ; Anxiety disorder , unspecified 300.00 and Unspecified personality disorder 301.9 [facility] [address] [address]- 0311 Jul, [facility] [id number] [place] [address] 23680- 8015 Jun, Unspecified episodic mood disorder 296.90 ; Anxiety disorder , unspecified 300.00 and Unspecified personality disorder 301.9 [facility] [id number] [place] [address] 57271- 9000 May, Unspecified episodic mood disorder 296.90 ; Anxiety disorder , unspecified 300.00 and Unspecified personality disorder 301.9 [facility] [id number] [place] [address] 73333- 3905 May, Anxiety disorder, unspecified 300.00 [facility] [id number] [place] [address] 06704- 3391 May, Anxiety disorder, unspecified 300.00 and Edema 782.3 [facility] [id number] [place] [address] 93213- 7524 May, Unspecified episodic mood disorder 296.90 ; Anxiety disorder , unspecified 300.00 and Unspecified personality disorder 301.9 [facility] [address] [address]- 4788 Apr, [facility] [id number] [place] [address] 24985- 4551 Apr, Unspecified episodic mood disorder 296.90 ; Anxiety disorder , unspecified 300.00 and Personality disorder, unspecified 301.9 [facility] [address] [address] Apr, Unspecified episodic mood disorder 296.90 ; Anxiety disorder , unspecified 300.00 and Unspecified personality disorder 301.9 [facility] [address] [facility] [id number] [address] March, [facility] [address] [address] March, Unspecified episodic mood disorder 296.90 ; Anxiety disorder , unspecified 300.00 and Unspecified personality disorder 301.9 [facility] [id number] [address] March, Unspecified episodic mood disorder 296.90 ; Anxiety disorder 300.00 and Unspecified personality disorder 301.9 [facility] [id number] [address] March, [facility] [id number] [address] March, [facility] [id number] [address] Feb, [facility] [id number], [place] [address] Feb, [facility] [id number] [address] Feb, [facility] [id number], [place] [address] Jan, [facility] [id number], [place] [address] Jan, [facility] [id number], [place] [address] Jan, [facility] [id number], [place] [address] Jan, [facility] [id number], [place] [address] Jan, [facility] [address] [id number] [address] Jan, [facility] [place] [facility] [address] [id number] [place] [id number] Jan, 2014 [facility] [place] [facility] [address] [id number] [place] [address] Jan, 2014 [facility] [place] [facility] [address] [id number] [place] [address] Jan, 2014 [facility] [place] [facility] [address] [id number] [place] [address] 9439 Jan, 2014 [facility] [place] [facility] [address] [id number] [place] [address] 8530 Jan, 2014 [facility] [place] [facility] [address] [id number] [place] [address]- 7318 Jan, 2014 [facility] [place] [facility] [address] [id number] [place] [address]- 9649 Jan, 2014 [facility] [place] [facility] [address] [id number] [place] [address]- 6379 Jan, [facility] [place] [facility] [address] [id number] [place] [address] 59[address] Jan, [facility] [place] [facility] [address] [id number] [place] [address]- 2201 Jan, [facility] [place] [facility] [address] [id number] [place] [address] 1153 Dec, 2014 [facility] [place] [facility] [address] [id number] [address] Dec, 2014 [facility] [place] [facility] [address] [id number] [place] [address] Dec, [facility] [place] [facility] [address] [id number] [place] [address]- 5551 Dec, 2014 [facility] [place] [facility] [address] [id number] [place] [address] Nov, [facility] [place] [facility] [address] [id number], [place] [address]67 Nov, [facility] [address] [id number] [place] [address]- 8082 Nov, [facility] [place] [facility] [address] [id number] [place] [address]- 8800 Nov, [facility] [place] [facility] [address] [id number] [place] [address]- 1601 Oct, [facility] [place] [facility] [address] [id number] [place] [address] 3403 Oct, [facility] [place] [facility] [address] [id number] [place] [address]- 4075 Oct, [facility] [place] [facility] [address] [id number] [place] [address]- 5688 Oct, [facility] [place] [facility] [address] [id number] [place] [address]- 6274 Oct, [facility] [place] [facility] [address] [id number] [place] [address]- 4083 Oct, [facility] [place] [facility] [address] [id number] [place] [address]- 6590 Oct, [facility] [place] [facility] [address] [id number] [place] [address]- 5405 Oct, [facility] [place] [facility] [address] [id number] [place] [address]- 3403 Oct, [facility] [place] [facility] [address] [id number] [place] [address]- 7078 Oct, [facility] [place] [facility] [address] [id number] [place] [address]- 0281 Oct, [facility] [place] [facility] [address] [id number] [place] [address]- 3852 Oct, [facility] [place] [facility] [address] [id number] [place] [address]- 6159 Oct, [facility] [place] [facility] [address] [id number] [place] [address]- 3977 Oct, [facility] [place] [facility] [address] [id number] [place] [address]- 9654 Oct, [facility] [place] [facility] [address] [id number] [place] [address]- 4715 Oct, [facility] [place] [facility] [address] [id number] [place] [address]- 2812 Sep, [facility] [place] [facility] [address] [id number] [place] [address]- 1688 Sep, [facility] [place] [facility] [address] [id number] [place] [address]- 2906 Sep, [facility] [place] [facility] [address] [id number] [place] [address]- 2000 Sep, [facility] [place] [facility] [address] [id number] [place] [address]- 3764 Sep, [facility] [place] [facility] [address] [id number] [place] [address]- 5060 Sep, [facility] [place] [facility] [address] [id number] [place] [address]- 5570 Sep, [facility] [place] [facility] [address] [id number] [place] [address] 1951 Sep, [facility] [place] [facility] [address] [id number] [place] [address]- 5479 Sep, [facility] [place] [facility] [address] [id number] [place] [address] 1977 Sep, [facility] [place] [facility] [address] [id number] [place] [address]- 8480 Aug, [facility] [place] [facility] [address] [id number] [place] [address]- 0510 Aug, [facility] [place] [facility] [address] [id number] [place] [address]- 5757 Aug, [facility] [place] [facility] [address] [id number] [place] [address]- 4647 14 Aug, 2014 [facility] [place] [facility] [address] [id number] [place] [address]- 5867 Aug, [facility] [place] [facility] [address] [id number] [place] [address]- 1448 Aug, [facility] [place] [facility] [address] [id number] [place] [address]- 4140 Aug, [facility] [place] [facility] [address] [id number] [place] [address]- 1531 Aug, [facility] [place] [facility] [address] [id number] [place] [address]- 7895 29 Jul, 2014 [facility] [place] [facility] [address] [id number] [place] [address]- 4249 Jul, [facility] [place] [facility] [address] [id number] [place] [address]- 1670 05 Jul, 2014 [facility] [place] [facility] [address] [id number] [place] [address]- 1954 05 Jul, 2014 [facility] [place] [facility] [address] [id number] [place] [address]- 6435 05 Jul, 2014 [facility] [place] [facility] [address] [id number] [place] [address]- 8704 Jul, [facility] [place] [facility] [address] [id number], [place] [address]- 2338 Jun, [facility] [place] [facility] [address] [id number] [place] [address]- 1456 Jun, [facility] [place] [facility] [address] [id number] [place] [address]- 3231 May, [facility] [place] [facility] [address] [id number] [place] [address]- 8517 May, [facility] [place] [facility] [address] [id number] [place] [address]- 9002 May, [facility] [place] [facility] [address] [id number] [place] [address]- 9189 May, [facility] [place] [facility] [address] [id number] [place] [address]- 0600 May, [facility] [place] [facility] [address] [id number] [place] [address]- 4767 May, [facility] [place] [facility] [address] [id number] [place] [address]- 1067 May, [facility] [place] [facility] [address] [id number] [place] [address]- 9360 May, [facility] [place] [facility] [address] [id number] [place] [address]- 5084 Apr, [facility] [place] [facility] [address] [id number] [place] [address]- 3961 Apr, [facility] [place] [facility] [address] [id number] [place] [address]- 5283 March, [facility] [place] [facility] [address] [id number] [place] [address]- 1843 March, [facility] [place] [facility] [address] [id number] [place] [address]- 8226 Feb, [facility] [place] [facility] [address] [id number] [place] [address]- 3420 Feb, [facility] [place] [facility] [address] [id number] [place] [address]- 5079 Feb, [facility] [place] [facility] [address] [id number] [place] [address]- 8777 Feb, [facility] [place] [facility] [address] [id number] [place] [address]- 7987 Feb, [facility] [place] [facility] [address] [id number] [place] [address]- 0713 Feb, [facility] [place] [facility] [address] [id number] [place] [address]- 0692 Feb, [facility] [place] [facility] [address] [id number] [place] [address]- 8093 Feb, [facility] [place] [facility] [address] [id number] [place] [address]- 3340 Feb, [facility] [place] [facility] [address] [id number] [place] [address]- 0040 Feb, [facility] [place] [facility] [address] [id number] [place] [address]- 9159 Jan, [facility] [place] [facility] [address] [id number] [place] [address]- 7641 Jan, [facility] [place] [facility] [address] [facility] [id number] [place] [address]- 2240 Jan, [facility] [place] [facility] [address] [id number] [place] [address]- 9710 Jan, [facility] [place] [facility] [address] [id number] [place] [address]- 0901 Jan, [facility] [place] [facility] [address] [id number] [place] [address]- 5464 Dec, [facility] [place] [facility] [address] [facility] [id number] [place] [address]- 1451 Dec, [facility] [place] [facility] [address] [id number], [place] [address]- 9544 Dec, [facility] [place] [facility] [address] [id number] [place] [address]- 1171 Dec, [facility] [place] [facility] [address] [id number] [place] [address]- 0600 Dec, [facility] [place] [facility] [address] [id number] [place] [address]13 Dec, [facility] [place] [facility] [address] [id number], [place] [address]- 9292 Nov, [facility] [address] [id number] [place] [address]- 6826 Nov, [facility] [place] [facility] [address] [id number] [place] [address]- 1338 Nov, [facility] [address] [facility] [id number] [place] [address]- 4144 Nov, [facility] [place] [facility] [address] [id number] [place] [address]- 0588 Nov, [facility] [address] [id number] [place] [address]- 0891 Nov, [facility] [address] [id number] [place] [address]- 6722 Nov, [facility] [address] [facility] [id number], [place] [address]- 1781 Nov, [facility] [place] [facility] [address] [id number] [place] [address]- 7710 Oct, [facility] [address] [id number] [place] [address]- 6248 Oct, [facility] [place] [facility] [address] [facility] [id number] [place] [address]- 6287 Oct, [facility] [place] [facility] [address] [id number], [place] [address]- 5452 Oct, [facility] [place] [facility] [address] [id number], [place] [address]- 1052 Oct, [facility] [place] [facility] [address] [id number], [place] [address]- 2163 Oct, [facility] [place] [facility] [address] [facility] [id number], [place] [address]- 7783 Oct, [facility] [place] [facility] [address] [facility] [id number], [place] [address]- 8675 Oct, [facility] [place] [facility] [address] [id number] [place] [address]- 1103 Sep, [facility] [place] [facility] [address] [id number] [place] [address]643 Sep, [facility] [place] [facility] [address] [id number] [place] [address]- 1426 Sep, [facility] [place] [facility] [address] [id number] [place] [address]- 5830 14 Sep, 2013 [facility] [place] [facility] [address] [id number] [place] [address]- 3546 Sep, [facility] [place] [facility] [address] [id number] [place] [address]- 3106 Sep, [facility] [place] [facility] [address] [id number] [place] [address]- 4809 Sep, [facility] [place] [facility] [address] [id number] [place] [address]- 7403 Sep, [facility] [place] [facility] [address] [id number] [place] [address]- 2329 Aug, [facility] [place] [facility] [address] [id number] [place] [address]- 6478 Aug, [facility] [place] [facility] [address] [id number] [place] 7923 Aug, [facility] [place] [facility] [address] [id number] [place] [address]- 8721 Jul, [facility] [place] [facility] [address] [id number] [place] [address]- 3350 Jun, [facility] [place] [facility] [address] [id number] [place] [address]- 1080 Jun, [facility] [place] [facility] [address] [id number] [place] [address]- 8487 Jun, [facility] [place] [facility] [address] [id number] [place] [address]- 9798 Jun, [facility] [address] [id number] [place] [address]- 2518 Jun, [facility] [place] [facility] [address] [id number] [place] [address]- 4999 May, [facility] [place] [facility] [address] [id number] [place] [address]- 0628 May, [facility] [address] [id number] [place] [address]- 4713 Apr, [facility] [address] [id number] [place] [address]- 7087 Apr, [facility] [address] [id number] [place] [address]- 3761 March, [facility] [address] [id number] [place] [address]- 7203 March, [facility] [place] [facility] [address] [id number] [place] [address]- 1194 March, [facility] [address] [id number] [place] [address]- 0198 March, [facility] [address] [id number] [place] [address]- 2381 March, [facility] [address] [id number] [place] [address]- 6956 Feb, [facility] [place] [facility] [address] [id number], [place] [address]- 2415 Feb, [facility] [place] [facility] [address] [id number] [place] [address]- 0761 Feb, [facility] [place] [facility] [address] [id number] [place] [address]- 1746 Jan, [facility] [place] [facility] [address] [id number] [place] [address]- 3137 Dec, [facility] [place] [facility] [address] [id number] [place] [address]- 5891 27 Dec, 2012 [facility] [address] [id number] [place] [address]- 5426 18 Dec, 2012 [facility] [address] [id number] [place] [address] 2546 Dec, [facility] [address] [id number] [place] [address]- 9537 28 Nov, 2012 [facility] [address] [id number] [place] [address]- 8255 Nov, [facility] [address] [id number] [place] [address]- 7349 Nov, [facility] [address] [id number] [place] [address]- 8983 Nov, [facility] [address] [id number] [place] [address]- 8168 Oct, [facility] [address] [id number] [place] [address]- 1244 Oct, [facility] [address] [id number] [place] [address]- 5754 Oct, [facility] [address] [id number] [place] [address]- 6224 06 Oct, 2012 [facility] [address] [id number] [place] [address]- 8572 14 Sep, 2012 [facility] [address] [id number] [place] [address]- 0659 14 Sep, 2012 [facility] [place] [facility] [address] [id number] [place] [address]- 2276 13 Sep, [address] [facility] [address] [id number] [place] [address]- 0666 13 Sep, 2012 [facility] [address] [id number] [place] [address]- 9335 Sep, [facility] [place] [facility] [address] [id number] [place] [address]- 0246 Sep, [facility] [place] [facility] [address] [id number] [place] [address]- 7436 Aug, [facility] [place] [facility] [address] [id number] [place] [address]- 2546 Aug, [facility] [place] [facility] [address] [id number] [place] [address]- 2546 Aug, [facility] [place] [facility] [address] [id number] [place] [address]- 4876 Jul, [facility] [place] [facility] [address] [id number] [place] [address]- 7776 Jul, [facility] [place] [facility] [address] [id number] [place] [address]- 2546 Jun, [facility] [place] [facility] [address] [id number] [place] [address]- 2296 May, [facility] [place] [facility] [address] [id number] [place] [address]- 2445 May, [facility] [place] [facility] [address] [facility] [id number], [place] [address]- 1996 Apr, [facility] [place] [facility] [address] [id number], [place] [address]- 2546 Apr, [facility] [place] [facility] [address] [id number], [place] [address]- 2546 March, [facility] [place] [facility] [address] [id number] [place] [address]- 2546 March, [facility] [place] [facility] [address] [id number], [place] [address]- 9826 Feb, [facility] [place] [facility] [address] [id number], [place] [address]- 2546 Feb, [facility] [place] [facility] [address] [id number], [place] [address]- 6708 09 Feb, 2012 [facility] [address] [id number] [place] [address]- 2656 06 Feb, 2012 [facility] [place] [facility] [address] [id number] [place] [address]- 6796 15 Jan, 2012 [facility] [place] [facility] [address] [facility] [id number] [place] [address]- 7026 Jan, [facility] [place] [facility] [address] [id number] [place] [address]- 5286 29 Dec, 2011 [facility] [place] [facility] [address] [id number] [place] [address]- 9556 28 Dec, 2011 [facility] [place] [facility] [address] [id number] [place] [address]- 6456 26 Dec, 2011 [facility] [place] [facility] [address] [id number] [place] [address]- 8906 23 Dec, 2011 [facility] [place] [facility] [address] [id number] [place] [address]- 3928 20 Dec, 2011 [facility] [place] [facility] [address] [facility] [id number] [place] [address]- 9657 15 Dec, 2011 [facility] [place] [facility] [address] [facility] [id number] [place] [address]- 5963 10 Dec, 2011 [facility] [place] [facility] [address] [facility] [id number] [place] [address] 2546 Dec, [facility] [place] [facility] [address] [facility] [id number] [place] [address] 2546 08 Dec, 2011 [facility] [place] [facility] [address] [id number] [place] [address]- 9046 07 Dec, 2011 [facility] [place] [facility] [address] [facility] [id number] [place] [address] 02 Dec, 2011 [facility] [place] [facility] [address] [facility] [id number] [place] [address] Dec, [facility] [place] [facility] [address] [id number] [place] [address] Dec, [facility] [place] [facility] [address] [id number] [place] [address] Nov, [facility] [place] [facility] [address] [id number] [place] [address] Nov, [facility] [place] [facility] [address] [id number] [place] [address] Nov, [facility] [place] [facility] [address] [id number] [place] [address] Nov, [facility] [place] [facility] [address] [id number] [place] [address] Nov, [facility] [place] [facility] [address] [id number] [place] [address] Nov, [facility] [place] [facility] [address] [id number] [place] [address] Oct, [facility] [place] [facility] [address] [id number] [place] [address] Oct, [facility] [place] [facility] [address] [id number] [place] [address] Sep, [facility] [place] [facility] [address] [id number] [address] Sep, [facility] [place] [facility] [address] [id number], [place] [address] Sep, [facility] [place] [facility] [address] [id number] [place] [address] Sep, [facility] [place] [facility] [address] [id number] [address] Sep, [facility] [place] [facility] [address] [id number] [place] [address] March, [facility] [place] [facility] [id number], [place] [address] Oct, [facility] [id number] [address] Oct, [facility] [address] [facility] [id number], [place] [address] Oct, [facility] [id number], [place] [address] Sep, [facility] [id number], [place] [address] 254 Sep, [facility] [id number], [place] [address] Sep, [facility] [id number], [place] [address] Sep, [facility] [id number], [place] [address] Aug, [facility] [id number], [place] [address] Oct, [facility] [id number], [place] [address] Oct, [facility] [id number], [place] [address] May, IMMUNIZATIONS No Known Immunizations SOCIAL HISTORY Never Assessed REASON FOR VISIT Blood Pressure- Zarai Lawrence RN PLAN OF CARE VITAL SIGNS Height 68 in 2017-11-16 Blood pressure systolic 132 mmHg 2017-11-16 Blood pressure diastolic 78 mmHg 2017-11-16 MEDICATIONS Medication Instructions Dosage Frequency Start Date End Date Duration Status Sertraline HCl 100 mg 2 tablets 24h 30 Unknown Triamcinolone Acetonide 0.1 % Externally Twice a day 1 application to affected area 12h 07 Sep, 2017 Unknown Medical Compression Stockings N/A as directed Aug, Unknown Propranolol HCl 20 mg Orally 2 times a day 1 tablet 12h 90 Active Amlodipine Besylate 10 mg TAKE ONE TABLET BY MOUTH DAILY 90 Active VESIcare 10 mg Orally Once a day 1 tablet 24h 11 Sep, 2017Dec, 2018 30 day(s) Unknown Pantoprazole Sodium 40 MG TAKE ONE TABLET BY MOUTH DAILY 90 Unknown Advair Diskus 250-50 MCG/DOSE INHALE ONE PUFF BY MOUTH TWICE DAILY 30 Unknown Valium 10 MG Orally Twice a day 1 tablet 12h 30 Jan, 2015 28 days Unknown Diflucan 150 MG 1 tablet Oct, 1 dose Unknown RESULTS No Results PROCEDURES No Known procedures INSTRUCTIONS MEDICATIONS ADMINISTERED No Known Medications MEDICAL (GENERAL) HISTORY Type Description Date Medical History hypertension Medical History panic attacks Surgical History cholecystectomy 2008 Hospitalization History surgery
--- OUTSIDE RECORDS SUMMARY | 2018-12-11 10:27 | XMS REPORT ---
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 Guide Name Role Phone SANJEEV PHELPS Unavailable PROBLEMS Type Condition ICD9-CM Code [id number]-MD Code Onset Dates Condition Status SNOMED Code Problem Anxiety F41.9 Active 04898653 Problem Unspecified episodic mood disorder F39 Active 762230031 Problem Unspecified personality disorder F60.9 Active 73060100 Problem Anxiety disorder, unspecified F41.9 Active [id number] ALLERGIES Unknown Allergies SOCIAL HISTORY No smoking Hx information available PLAN OF CARE Activity Details Follow Up 3 Weeks Reason:BH F/U VITAL SIGNS MEDICATIONS Unknown Medications RESULTS No Results PROCEDURES Procedure Date Ordered Related Diagnosis Body Site Psychotherapy, patient &/family, 45 minutes, established patient Dec 09, 2016 IMMUNIZATIONS No Known Immunizations
--- OUTSIDE RECORDS SUMMARY | 2018-12-11 10:27 | XMS REPORT ---
Author Author SANJEEV PHELPS [facility] Address [address] [place] [address] Care Team Providers Care Manager Spanish Name Role Phone SANJEEV PHELPS Unavailable PROBLEMS Type Condition ICD9-CM Code QXB04-JO Code Onset Dates Condition Status SNOMED Code Problem Stress incontinence of urine N39.3 Active 02584194 Problem Anxiety F41.9 Active 99071006 Problem Anxiety disorder, unspecified F41.9 Active 398286601 Problem Unspecified episodic mood disorder F39 Active 136715739 Problem Unspecified personality disorder F60.9 Active 09141362 ALLERGIES No Information ENCOUNTERS Encounter Location Date Diagnosis [place] [id number] [place] [address] 72608- 5370 May, [facility] [id number] [place] [address] 69055- 3557 Apr, Anxiety disorder, unspecified F41.9 [place] [id number] [place] [address] 32098- 4216 Apr, Unspecified episodic mood disorder F39 ; Anxiety disorder, unspecified F41.9 and Unspecified personality disorder F60.9 [place] [id number] [place] [address] 24333- 9407 March, Anxiety disorder, unspecified F41.9 [facility] [id number] [place] [address] 41131- 3896 March, Unspecified episodic mood disorder F39 ; Anxiety disorder, unspecified F41.9 and Unspecified personality disorder F60.9 [facility] [id number] [place] [address] 36619- 7289 March, Anxiety disorder, unspecified F41.9 [facility] [id number] [address] 8038 Feb, Unspecified episodic mood disorder F39 ; Anxiety disorder, unspecified F41.9 and Unspecified personality disorder F60.9 [facility] [id number] [place] [address] 26356- 3331 Feb, Unspecified episodic mood disorder F39 ; Anxiety disorder, unspecified F41.9 and Unspecified personality disorder F60.9 [facility] [id number] [place] [address] 09911- 3935 Feb, Anxiety disorder, unspecified F41.9 [facility] [id number] [place] [address] 97040- 1229 Jan, Unspecified episodic mood disorder F39 ; Anxiety disorder, unspecified F41.9 and Unspecified personality disorder F60.9 [place] [id number] [place] [address] 81081- 0212 Jan, Anxiety F41.9 [facility] [id number] [place] [address] 47187- 1165 Jan, Anxiety disorder, unspecified F41.9 [facility] [id number] [place] [address] 97831- 9512 Dec, Unspecified episodic mood disorder F39 ; Anxiety disorder, unspecified F41.9 and Unspecified personality disorder F60.9 [facility] [id number] [place] [address] 62836- 0898 Dec, Anxiety F41.9 [facility] [id number] [place] [address] 74580- 5996 Dec, Anxiety disorder, unspecified F41.9 [facility] [id number] [place] [address] 74285- 1281 Dec, Unspecified episodic mood disorder F39 ; Anxiety disorder, unspecified F41.9 and Unspecified personality disorder F60.9 [facility] [id number] [place] [address] 37488- 4487 Nov, [facility] [address] [address]- 0770 Nov, [facility] [id number] [place] [address] 26921- 0516 Nov, Unspecified episodic mood disorder F39 ; Anxiety disorder, unspecified F41.9 and Unspecified personality disorder F60.9 [facility] [id number] [place] [address] 41500- 0591 Nov, Anxiety disorder, unspecified F41.9 [facility] [id number] [place] [address] 98573- 3103 Oct, Unspecified episodic mood disorder F39 ; Anxiety disorder, unspecified F41.9 and Unspecified personality disorder F60.9 [facility] [address] [address]- 3685 Oct, Vaginal yeast infection B37.3 [facility] [id number] [place] [address] 25325- 3995 Oct, [facility] [id number] [place] [address] 75049- 6088 Oct, Anxiety disorder, unspecified F41.9 [facility] [id number] [place] [address] 43013- 3202 Oct, Routine gynecological examination Z01.419 ; Screening for breast cancer Z12.31 and Vaginal yeast infection B37.3 [facility] [address] [address]- 6696 Sep, Unspecified episodic mood disorder F39 ; Anxiety disorder, unspecified F41.9 and Unspecified personality disorder F60.9 [facility] [address] [address]- 4941 Sep, [facility] [address] [address]- 9409 Sep, Anxiety disorder, unspecified F41.9 [facility] [place] [id number] [place] [address] 31466- 0379 Sep, Bronchitis J40 and Stress incontinence of urine N39.3 [facility] [id number] [place] [address] 12769- 5876 Sep, Stress incontinence of urine N39.3 ; Bronchitis J40 and Anxiety F41.9 [facility] [address] 73479- 2338 Sep, [facility] [id number] [place] [address] 61679- 2937 Sep, Unspecified episodic mood disorder F39 ; Anxiety disorder, unspecified F41.9 and Unspecified personality disorder F60.9 [facility] [id number] [place] [address] 81585- 1453 Aug, Anxiety F41.9 ; Stress incontinence of urine N39.3 and Encounter for immunization Z23 [facility] [place] [id number] [place] [address] 97185- 7816 Aug, Anxiety disorder, unspecified F41.9 [facility] [place] [id number] [place] [address] 43464- 4623 Jul, Unspecified episodic mood disorder F39 ; Anxiety disorder, unspecified F41.9 and Unspecified personality disorder F60.9 [facility] [id number] [place] [address] 08614- 1553 Jul, [facility] [id number] [place] [address] 73371- 7085 Jul, Unspecified episodic mood disorder F39 ; Anxiety disorder, unspecified F41.9 and Unspecified personality disorder F60.9 [facility] [id number] [place] [address] 98691- 4906 Jul, Anxiety disorder, unspecified F41.9 [facility] [id number] [place] [address] 49694- 7346 Jun, Unspecified episodic mood disorder F39 ; Anxiety disorder, unspecified F41.9 and Unspecified personality disorder F60.9 [facility] [id number] [place] [address] 68434- 3029 Jun, Anxiety disorder, unspecified F41.9 [facility] [id number] [place] [address] 14411- 9589 Jun, Unspecified episodic mood disorder F39 ; Anxiety disorder, unspecified F41.9 and Unspecified personality disorder F60.9 [facility] [id number] [place] [address] 66800- 3537 Jun, [facility] [id number] [place] [address] 21833- 5272 May, Anxiety disorder, unspecified F41.9 [facility] [id number] [place] [address] 54630- 1839 May, Unspecified episodic mood disorder F39 ; Anxiety disorder, unspecified F41.9 and Unspecified personality disorder F60.9 [facility] [id number] [place] [address] 30278- 7410 Apr, Anxiety disorder, unspecified F41.9 [facility] [id number] [place] [address] 22494- 6103 March, Unspecified episodic mood disorder F39 ; Anxiety disorder, unspecified F41.9 and Unspecified personality disorder F60.9 [facility] [id number] [place] [address] 68434- 1112 March, Bronchitis J40 [facility] [id number] [place] [address] 22074- 5305 March, Unspecified episodic mood disorder F39 ; Anxiety disorder, unspecified F41.9 and Unspecified personality disorder F60.9 [facility] [id number] [place] [address] 18082- 9916 Feb, [facility] [id number] [place] [address] 05631- 1530 Feb, Unspecified episodic mood disorder F39 ; Anxiety disorder, unspecified F41.9 and Unspecified personality disorder F60.9 [facility] [id number] [place] [address] 36896- 7250 Feb, Bronchitis J40 [facility] [address] [address]- 2809 Feb, Unspecified episodic mood disorder F39 ; Anxiety disorder, unspecified F41.9 and Unspecified personality disorder F60.9 [facility] [id number] [place] [address] 01139- 9310 Jan, Unspecified episodic mood disorder F39 ; Anxiety disorder, unspecified F41.9 and Unspecified personality disorder F60.9 [facility] [id number] [place] [address] 39097- 1613 Jan, Bronchitis J40 [facility] [id number] [place] [address] 42129- 1322 Jan, Unspecified episodic mood disorder F39 ; Anxiety disorder, unspecified F41.9 and Unspecified personality disorder F60.9 [facility] [id number] [place] [address] 99556- 5836 Dec, Anxiety F41.9 [facility] [address] [address]- 2706 Dec, Unspecified episodic mood disorder F39 ; Anxiety disorder, unspecified F41.9 and Unspecified personality disorder F60.9 [facility] [id number] [id number] Dec, [facility] [id number] [place] [address] 32294- 8953 Dec, Unspecified episodic mood disorder F39 ; Anxiety disorder, unspecified F41.9 and Unspecified personality disorder F60.9 [facility] [address] [address]- 1715 Nov, [facility] [address] [address]- 2551 Oct, Unspecified episodic mood disorder F39 ; Anxiety disorder, unspecified F41.9 and Unspecified personality disorder F60.9 [facility] [address] [address]- 7166 Oct, [facility] [id number] [place] [address] 18196 -6523 Oct, Acute upper respiratory infection, unspecified J06.9 ; Other viral agents as the cause of diseases classified elsewhere B97.89 and Cough R05 [facility] [id number] [place] [address] 71258- 6311 Aug, Unspecified episodic mood disorder F39 ; Anxiety disorder, unspecified F41.9 and Unspecified personality disorder F60.9 [facility] [id number] [place] [address] 76761- 8009 Aug, [facility] [id number] [place] [address] 48797- 4908 Aug, [facility] [id number] [place] [address] 21139- 4677 Aug, [facility] [id number] [place] [address] 96983- 1585 Aug, Visit for TB skin test Z11.1 [facility] [id number] [place] [address] 20159- 0480 Jul, [facility] [id number] [place] [address] 98539- 2241 Jul, [facility] [id number] [place] [address] 89633- 0740 Jul, [facility] [id number] [place] [address] 78681- 2800 Jul, [facility] [id number] [place] [address] 92592- 4531 Jul, [facility] [address] [address]- 9214 Jul, Unspecified episodic mood disorder F39 ; Anxiety disorder, unspecified F41.9 and Unspecified personality disorder F60.9 [facility] [address] [address]- 5116 Jun, [facility] [id number] [place] [address] 34767- 5496 Jun, Unspecified episodic mood disorder F39 ; Anxiety disorder, unspecified F41.9 and Unspecified personality disorder F60.9 [facility] [address] [place] [address] 460797- 8556 Jun, [facility] [id number] [place] [address] 84089- 0767 May, Unspecified episodic mood disorder F39 ; Anxiety disorder, unspecified F41.9 and Unspecified personality disorder F60.9 [facility] [address] [address]- 8881 May, [facility] [address] [address]- 7576 May, [facility] [address] [address]- 5488 May, Edema, unspecified R60.9 [facility] [address] [address]- 6126 Apr, [facility] [address] [address]- 3088 Apr, Unspecified episodic mood disorder F39 ; Anxiety disorder, unspecified F41.9 and Unspecified personality disorder F60.9 [facility] [address] [address]- 5479 Apr, Anxiety F41.9 [facility] [address] [address]- 7136 March, Unspecified episodic mood disorder F39 ; Anxiety disorder, unspecified F41.9 and Unspecified personality disorder F60.9 [facility] [address] [place] [address] 97126- 8327 March, Unspecified episodic mood disorder F39 ; Anxiety disorder, unspecified F41.9 and Unspecified personality disorder F60.9 [facility] [id number] [place] [address] 05364- 7853 Feb, Anxiety F41.9 [facility] [id number] [place] [address] 16223- 5201 Feb, Unspecified episodic mood disorder F39 ; Anxiety disorder, unspecified F41.9 and Unspecified personality disorder F60.9 [place] [id number] [place] [address] 57019- 6669 Jan, Unspecified episodic mood disorder F39 ; Anxiety disorder, unspecified F41.9 and Unspecified personality disorder F60.9 [facility] [id number] [place] [address] 16717- 4275 Jan, Unspecified episodic mood disorder F39 ; Anxiety disorder, unspecified F41.9 and Unspecified personality disorder F60.9 [facility] [id number] [place] [address] 64108- 8245 Jan, Edema, unspecified R60.9 [facility] [address] [address]- 6751 Dec, [facility] [id number] [place] [address] 39509- 9996 Dec, [facility] [id number] [place] [address] 34779- 3432 Dec, [facility] [id number] [place] [address] 54356- 9402 Dec, Unspecified episodic mood disorder F39 ; Anxiety disorder, unspecified F41.9 and Unspecified personality disorder F60.9 [place] [address] [address]- 7633 Nov, [facility] [id number] [place] [address] 91977- 8623 Nov, Unspecified episodic mood disorder F39 ; Anxiety disorder, unspecified F41.9 and Unspecified personality disorder F60.9 [facility] [id number] [place] [address] 72042- 7167 Oct, Unspecified episodic mood disorder F39 ; Anxiety disorder, unspecified F41.9 and Unspecified personality disorder F60.9 [place] [id number] [place] [address] 13763- 9367 Oct, Unspecified episodic mood disorder F39 ; Anxiety disorder, unspecified F41.9 and Unspecified personality disorder F60.9 [place] [id number] [place] [address] 88370- 2116 Sep, Unspecified episodic mood disorder F39 ; Anxiety disorder, unspecified F41.9 and Unspecified personality disorder F60.9 [place] [id number] [place] [address] 98841- 7538 Sep, Encounter for immunization Z23 [facility] [id number] [place] [address] 28822- 1177 Sep, Edema of left lower extremity R60.0 [facility] [id number] [place] [address] 47270- 6935 Aug, Unspecified episodic mood disorder F39 ; Anxiety disorder, unspecified F41.9 and Unspecified personality disorder F60.9 [facility] [id number] [place] [address] 55614- 3291 Aug, [facility] [id number] [place] [address] 23380- 0877 Aug, Edema of left lower extremity R60.0 [facility] [id number] [place] [address] 40062- 5342 Aug, [facility] [address] [address]- 0882 Aug, Unspecified episodic mood disorder F39 ; Anxiety disorder, unspecified F41.9 and Unspecified personality disorder F60.9 [facility] [address] [address]- 3132 Jul, Unspecified episodic mood disorder 296.90 ; Anxiety disorder , unspecified 300.00 and Unspecified personality disorder 301.9 [facility] [id number] [place] [address] 18432- 6418 Jul, Unspecified episodic mood disorder 296.90 ; Anxiety disorder , unspecified 300.00 and Unspecified personality disorder 301.9 [facility] [id number] [place] [address] 49831- 9577 Jul, [facility] [id number] [place] [address] 62095- 4085 Jun, Unspecified episodic mood disorder 296.90 ; Anxiety disorder , unspecified 300.00 and Unspecified personality disorder 301.9 [facility] [id number] [place] [address] 67100- 6529 May, Unspecified episodic mood disorder 296.90 ; Anxiety disorder , unspecified 300.00 and Unspecified personality disorder 301.9 [facility] [id number] [place] [address] 26015- 5376 May, Anxiety disorder, unspecified 300.00 [facility] [id number] [place] [address] 75316- 8720 May, Anxiety disorder, unspecified 300.00 and Edema 782.3 [facility] [id number] [place] [address] 71371- 8948 May, Unspecified episodic mood disorder 296.90 ; Anxiety disorder , unspecified 300.00 and Unspecified personality disorder 301.9 [facility] [id number] [place] [address] 36476- 9034 Apr, [facility] [address] [address]- 6414 Apr, Unspecified episodic mood disorder 296.90 ; Anxiety disorder , unspecified 300.00 and Personality disorder, unspecified 301.9 [facility] [address] [address]- 6314 Apr, Unspecified episodic mood disorder 296.90 ; Anxiety disorder , unspecified 300.00 and Unspecified personality disorder 301.9 [facility] [address] [address]- 5611 March, [facility] [id number] [place] [address] 09333- 1221 March, Unspecified episodic mood disorder 296.90 ; Anxiety disorder , unspecified 300.00 and Unspecified personality disorder 301.9 [facility] [address] [address]- 9608 March, Unspecified episodic mood disorder 296.90 ; Anxiety disorder 300.00 and Unspecified personality disorder 301.9 [facility] [address] [address]- 4755 March, [facility] [address] [address]- 9523 March, [facility] [address] [address]- 1916 Feb, [facility] [address] [address]- 9140 Feb, [facility] [address] [address]- 5942 Feb, [facility] [id number] 0665 Jan, [facility] [address] [address]- 5583 Jan, [facility] [address] [address]- 8571 Jan, [facility] [place] [facility] [address] [id number] [place] 2538 Jan, [facility] [place] [facility] [address] [facility] [id number] [address]- 2402 Jan, [facility] [place] [facility] [address] [facility] [id number] [place] [address]- 0687 Jan, [facility] [place] [facility] [address] [facility] [id number] [address] Jan, [facility] [place] [facility] [address] [facility] [id number] [place] [address]- 0057 Jan, [facility] [place] [facility] [address] [facility] [id number] [place] [address]- 4361 Jan, [facility] [place] [facility] [address] [facility] [id number] [place] [address]- 9439 Jan, [facility] [place] [facility] [address] [facility] [id number] [place] [address]- 5941 Jan, [facility] [place] [facility] [address] [facility] [id number] [place] [address]- 8429 Jan, [facility] [place] [facility] [address] [facility] [id number] [place] [address]- 8123 Jan, [facility] [place] [facility] [address] [facility] [id number] [place] [address]- 9359 Jan, [facility] [place] [facility] [address] [id number] [place] [address]- 9117 Jan, [facility] [place] [facility] [address] [facility] [id number] [place] [address]- 5647 Jan, [facility] [place] [facility] [address] [facility] [id number] [place] 1709 Dec, [facility] [place] [facility] [address] [facility] [id number] [place] 2926 Dec, [facility] [place] [facility] [address] [facility] [id number] [place] [address]- 8823 09 Dec, 2014 [facility] [address] [id number] [place] [address]- 9340 Dec, [facility] [address] [id number] [place] [address]- 2534 Nov, [facility] [address] [id number] [place] [address]- 7310 Nov, [facility] [address] [id number] [place] [address]- 1882 Nov, [facility] [address] [id number] [place] [address]- 9372 Nov, [facility] [address] [id number] [place] [address] Oct, [facility] [address] [id number] [place] [address] Oct, [facility] [address] [id number] [place] [address] Oct, [facility] [address] [id number] [place] [address] Oct, [facility] [address] [id number] [place] [address] Oct, [facility] [address] [id number] [place] [address] Oct, [facility] [address] [id number] [place] [address] Oct, [facility] [place] [facility] [address] [id number] [place] [address] Oct, [facility] [place] [facility] [address] [id number] [place] [address] Oct, [facility] [facility] [address] [id number] [place] [address] Oct, [facility] [place] [facility] [address] [id number] [place] [address] 1809 Oct, [facility] [place] [facility] [address] [id number] [place] [address]646 Oct, [facility] [place] [facility] [address] [id number] [place] [address] 1066 Oct, [facility] [place] [facility] [address] [id number] [place] [address] 2850 Oct, [facility] [place] [facility] [address] [id number] [place] [address]- 4876 Oct, [facility] [place] [facility] [address] [id number] [place] [address] 7134 Oct, [facility] [place] [facility] [address] [id number] [place] [address] 5218 Sep, [facility] [place] [facility] [address] [id number] [place] [address] 5610 Sep, [facility] [place] [facility] [address] [id number] [place] [address]- 8585 Sep, [facility] [place] [facility] [address] [id number] [place] [address]- 0576 Sep, [facility] [place] [facility] [address] [id number] [place] [address]- 1060 Sep, [facility] [place] [facility] [address] [id number] [address] Sep, [facility] [place] [facility] [address] [id number] [place] [address]- 8188 Sep, [facility] [place] [facility] [address] [id number] [place] [address]- 7689 Sep, [facility] [place] [facility] [address] [id number] [place] [address]- 3200 Sep, [facility] [place] [facility] [address] [id number] [place] [address] Sep, [facility] [place] [facility] [address] [id number] [place] [address] 0558 30 Aug, 2014 [facility] [place] [facility] [address] [id number] [place] [address]- 3008 30 Aug, 2014 [facility] [place] [facility] [address] [id number] [place] [address]- 0786 Aug, [facility] [place] [facility] [address] [id number] [place] [address]- 9813 14 Aug, 2014 [facility] [place] [facility] [address] [id number] [place] [address]- 3441 Aug, [facility] [place] [facility] [address] [id number] [place] [address]- 5182 Aug, [facility] [place] [facility] [address] [facility] [id number] [place] [address]- 6783 Aug, [facility] [place] [facility] [address] [id number] [place] [address]- 4953 Aug, [facility] [place] [facility] [address] [facility] [id number] [place] [address]- 6841 29 Jul, 2014 [facility] [place] [facility] [address] [facility] [id number] [place] [address]- 0990 29 Jul, 2014 [facility] [place] [facility] [address] [id number] [place] [address] 05 Jul, 2013 [facility] [place] [facility] [address] [id number] [place] [address]- 57[address] 05 Jul, 2013 [facility] [place] [facility] [address] [id number] [place] [address]- 4413 05 Jul, 2014 [facility] [place] [facility] [address] [facility] [id number] [place] [address]- 2026 05 Jul, 2013 [facility] [place] [facility] [address] [facility] [id number] [place] [address]- 2081 Jun, [facility] [place] [facility] [address] [id number] [place] [address]- 4308 Jun, [facility] [place] [facility] [address] [id number] [place] [address]- 5595 May, [facility] [place] [facility] [address] [id number] [place] [address]- 8908 May, [facility] [place] [facility] [address] [id number] [place] [address]- 8667 May, [facility] [place] [facility] [address] [id number] [place] [address]- 3029 May, [facility] [place] [facility] [address] [id number] [place] [address]- 4313 May, [facility] [place] [facility] [address] [id number] [place] [address]- 6774 May, [facility] [place] [facility] [address] [id number] [place] [address]- 6582 May, [facility] [place] [facility] [address] [id number] [place] [address]- 4465 May, [facility] [place] [facility] [address] [id number] [place] [address]- 1990 Apr, [facility] [place] [facility] [address] [id number] [place] [address]- 7723 Apr, [facility] [place] [facility] [address] [id number] [place] [address]- 3109 March, [facility] [place] [facility] [address] [id number] [place] [address]- 4929 March, [facility] [place] [facility] [address] [id number] [place] [address]- 6303 Feb, [facility] [place] [facility] [address] [id number] [place] [address]- 6108 Feb, [facility] [place] [facility] [address] [id number] [place] [address]- 7596 Feb, [facility] [place] [facility] [address] [id number] [place] [address]- 8475 Feb, [facility] [place] [facility] [address] [id number] [place] [address]- 2653 Feb, [facility] [place] [facility] [address] [id number] [place] [address]- 5316 Feb, [facility] [place] [facility] [address] [id number] [place] [address]- 9328 Feb, [facility] [place] [facility] [address] [id number] [place] [address]- 3491 Feb, [facility] [place] [facility] [address] [id number] [place] [address]- 4345 Feb, [facility] [place] [facility] [address] [id number] [place] [address]- 1388 Feb, [facility] [place] [facility] [address] [id number] [place] [address]- 5669 Jan, [facility] [place] [facility] [address] [id number] [place] [address]- 9136 Jan, [facility] [place] [facility] [address] [id number] [place] [address]- 1943 Jan, [facility] [place] [facility] [address] [id number] [place] [address]- 9381 Jan, [facility] [place] [facility] [address] [id number] [place] [address]- 3707 Jan, [facility] [place] [facility] [address] [id number] [place] [address]- 8204 Dec, [facility] [place] [facility] [address] [id number] [place] [address]- 1670 Dec, [facility] [place] [facility] [address] [id number] [place] [address]- 0361 Dec, [facility] [place] [facility] [address] [id number] [place] [address]- 5698 10 Dec, 2013 [facility] [address] [id number] [place] [address]- 2736 Dec, [facility] [place] [facility] [address] [id number] [place] [address]- 8036 Dec, [facility] [address] [id number] [place] [address]- 2336 Nov, [facility] [place] [facility] [address] [id number] [place] [address]- 5906 Nov, [facility] [address] [id number] [place] [address]- 5411 Nov, [facility] [place] [facility] [address] [id number] [place] [address]- 5287 Nov, [facility] [address] [id number] [place] [address]- 2694 Nov, [facility] [address] [id number] [place] [address]- 0832 Nov, [facility] [place] [facility] [address] [id number] [place] [address]- 6968 Nov, [facility] [address] [id number] [place] [address]- 3704 Nov, [facility] [address] [id number] [place] [address]- 8143 Oct, [facility] [place] [facility] [address] [id number] [place] [address]- 5349 Oct, [facility] [place] [facility] [address] [id number] [place] [address]- 9930 Oct, [facility] [place] [facility] [address] [id number] [place] [address]- 9246 Oct, [facility] [place] [facility] [address] [id number] [place] [address]- 5133 Oct, [facility] [place] [facility] [address] [id number] [place] [address]- 4416 05 Oct, 2013 [facility] [place] [facility] [address] [id number] [place] [address]- 0254 Oct, [facility] [place] [facility] [address] [id number] [place] [address]- 4730 Oct, [facility] [place] [facility] [address] [id number] [place] [address]- 1285 Sep, [facility] [place] [facility] [address] [id number] [place] [address]- 7737 Sep, [facility] [place] [facility] [address] [id number] [place] [address]- 3097 Sep, [facility] [place] [facility] [address] [id number] [place] [address]- 4112 Sep, [facility] [place] [facility] [address] [id number] [place] [address]- 3533 Sep, [facility] [place] [facility] [address] [id number] [place] [address]- 9075 Sep, [facility] [place] [facility] [address] [id number] [place] [address]- 3892 Sep, [facility] [place] [facility] [address] [id number] [place] [address]- 5344 Sep, [facility] [place] [facility] [address] [id number] [place] [address]- 5924 Aug, [facility] [place] [facility] [address] [id number] [place] [address]- 2379 Aug, [facility] [place] [facility] [address] [id number] [place] [address]- 6350 Aug, [facility] [place] [facility] [address] [id number] [place] [address]- 1436 Jul, [facility] [place] [facility] [address] [id number] [place] [address]- 3949 Jun, [facility] [address] [id number] [place] [address]- 3027 Jun, [facility] [address] [id number] [place] [address]- 4793 Jun, [facility] [address] [id number] [place] [address]- 2316 Jun, [facility] [address] [id number] [place] [address]- 8835 Jun, [facility] [address] [id number] [place] [address]- 1968 May, [facility] [address] [id number] [place] [address]- 2694 May, [facility] [address] [id number] [place] [address]- 2574 Apr, [facility] [address] [id number] [place] [address]- 5789 Apr, [facility] [address] [id number] [place] [address]- 6885 March, [facility] [address] [id number] [place] [address]- 5655 March, [facility] [address] [id number] [place] [address]- 8149 March, [facility] [address] [id number] [place] [address]- 1133 March, [facility] [address] [id number] [place] [address]- 2328 March, [facility] [address] [id number] [place] [address]- 4290 Feb, [facility] [address] [id number] [place] [address]- 7283 Feb, [facility] [address] [id number] [place] [address]- 9400 Feb, [facility] [address] [id number] [place] [address]- 6556 Jan, [facility] [place] [facility] [address] [id number] [place] [address]- 9218 Dec, [facility] [place] [facility] [address] [id number] [place] [address]- 1601 Dec, [facility] [place] [facility] [address] [id number] [place] [address]- 1469 Dec, [facility] [address] [id number] [place] [address]- 8186 Dec, [facility] [address] [id number] [place] [address]- 1474 Nov, [facility] [address] [id number] [place] [address]- 6229 Nov, [facility] [address] [id number] [place] [address]- 5420 Nov, [facility] [address] [id number] [place] [address]- 9369 Nov, [facility] [address] [id number] [place] [address]- 7624 Oct, [facility] [place] [facility] [address] [id number] [place] [address]- 5710 Oct, [facility] [place] [facility] [address] [id number] [place] [address]- 4914 Oct, [facility] [place] [facility] [address] [id number] [place] [address]- 1586 Oct, [facility] [place] [facility] [address] [id number] [place] [address]- 9121 14 Sep, 2012 [facility] [place] [facility] [address] [id number] [place] [address]- 2107 14 Sep, 2012 [facility] [place] [facility] [address] [id number] [place] [address]- 2835 Sep, [facility] [place] [facility] [address] [id number] [place] [address]- 0285 Sep, [facility] [place] [facility] [address] [id number] [place] [address]- 9518 Sep, [facility] [place] [facility] [address] [id number] [place] [address]- 7115 Sep, [facility] [place] [facility] [address] [id number] [place] [address]- 2239 Aug, [facility] [place] [facility] [address] [id number] [place] 0193 Aug, [facility] [place] [facility] [address] [id number] [place] [address]- 2680 Aug, [facility] [place] [facility] [address] [id number] [place] [address]- 0908 Jul, [facility] [place] [facility] [address] [id number] [place] [address]- 2894 Jul, [facility] [place] [facility] [address] [id number] [place] [address]- 1182 Jun, [facility] [place] [facility] [address] [id number] [place] [address]- 0089 May, [facility] [place] [facility] [address] [id number] [place] [address]- 1317 May, [facility] [place] [facility] [address] [id number] [place] [address]- 7255 Apr, [facility] [place] [facility] [address] [id number] [place] [address]- 8732 Apr, [facility] [place] [facility] [address] [id number] [place] [address]- 1377 March, [facility] [place] [facility] [address] [id number] [place] [address]- 6197 07 Mar, 2012 [facility] [address] [id number] [place] [address]- 6371 19 Feb, 2012 [facility] [place] [facility] [address] [id number] [place] [address]- 9436 16 Feb, 2012 [facility] [address] [id number] [place] [address]- 0809 09 Feb, 2012 [facility] [place] [facility] [address] [id number] [place] [address]- 4324 06 Feb, 2012 [facility] [place] [facility] [address] [id number] [place] [address]- 0254 15 Jan, 2012 [facility] [place] [facility] [address] [facility] [id number] [place] [address]- 3691 07 Jan, 2012 [facility] [place] [facility] [id number] [place] [address]- 0943 29 Dec, 2011 [facility] [address] [id number] [place] [address]- 5073 28 Dec, 2011 [facility] [place] [facility] [id number] [place] [address]- 2414 26 Dec, 2011 [facility] [place] [facility] [id number] [place] [address]- 2263 23 Dec, 2011 [facility] [place] [facility] [id number] [place] [address]- 0596 20 Dec, 2011 [facility] [place] [facility] [address] [facility] [id number] [place] [address]- 3072 15 Dec, 2011 [facility] [place] [facility] [address] [facility] [id number] [place] [address]- 3727 10 Dec, 2011 [facility] [place] [facility] [address] [id number] [place] [address]- 4956 09 Dec, 2011 [facility] [place] [facility] [id number] [place] [address]- 6764 08 Dec, 2011 [facility] [address] [id number] [place] [address]- 0835 Dec, [facility] [place] [facility] [address] [id number] [place] [address]- 4846 Dec, [facility] [address] [id number] [place] [address]- 3516 Dec, [facility] [place] [facility] [address] [id number] [place] [address]- 7572 Dec, [facility] [address] [id number] [place] [address]- 7102 Nov, [facility] [address] [id number] [place] [address]- 6706 Nov, [facility] [address] [id number] [place] [address]- 3391 Nov, [facility] [address] [id number] [place] [address]- 4992 Nov, [facility] [address] [id number] [place] [address]- 2882 Nov, [facility] [address] [facility] [id number] [place] [address]- 4690 Nov, [facility] [address] [id number] [place] [address]- 9120 Oct, [facility] [place] [facility] [address] [id number] [place] [address]- 4660 Oct, [facility] [place] [facility] [address] [id number] [place] [address]- 6549 Sep, [facility] [place] [facility] [address] [id number] [place] [address]- 4944 Sep, [facility] [place] [facility] [address] [id number] [place] [address]- 5385 Sep, [facility] [place] [facility] [address] [facility] [id number] [place] [address]- 6327 Sep, [facility] [address] [facility] [id number] [place] [address]- 2326 Sep, [facility] [address] [facility] [id number] [place] [address]- 1062 March, [facility] [address] [facility] [id number] [place] 1630 Oct, [facility] [address] [facility] [id number] [place] 6329 Oct, [facility] [id number] [place] [address]- 2760 Oct, [facility] [address]00565100[place] [address] Sep, [facility] [address]00565100[place] [address]- 2715 Sep, [facility] [address]00565100[place] [address]- 0777 Sep, [facility] [address]00565100[place] [address]- 0578 Sep, [facility] [address]00565100[place] [address]- 4302 Aug, [facility] [address]00565100[place] [address]- 1104 Oct, [facility] [address] [id number] [address]170 Oct, [facility] [address]00565[address] [address]27 May, IMMUNIZATIONS No Known Immunizations SOCIAL HISTORY Never Assessed REASON FOR VISIT f/u PLAN OF CARE Activity Details Follow Up Next available Reason: F/U VITAL SIGNS MEDICATIONS Unknown Medications RESULTS No Results PROCEDURES Procedure Date Ordered Result Body Site Psychotherapy, patient &/family, 45 minutes, established patient Dec 26, 2017 INSTRUCTIONS MEDICATIONS ADMINISTERED No Known Medications MEDICAL (GENERAL) HISTORY Type Description Date Medical History hypertension Medical History panic attacks Surgical History cholecystectomy 2008 Hospitalization History surgery
--- OUTSIDE RECORDS SUMMARY | 2018-12-11 10:28 | XMS REPORT ---
Author Author SANJEEV PHELPS [facility] [employer] Address Unknown Phone Unavailable Care Team Providers Care General Maintenance Mechanic Name Role Phone SANJEEV PHELPS Unavailable Allergies [...] patient &/family, 45 minutes, established patient CPT-4 93562 Oct 13, 2015 Results No Known Results Summary Purpose eClinicalWorks Submission
--- OUTSIDE RECORDS SUMMARY | 2018-12-11 10:28 | XMS REPORT ---
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
--- OUTSIDE RECORDS SUMMARY | 2018-12-11 10:28 | XMS REPORT ---
Author Author LUCY GREENWOOD Organization [facility] Address [address] [place] [address] Care Team Providers Care Microbiology Soil Scientist Name Role Phone LUCY GREENWOOD Unavailable PROBLEMS Type Condition ICD9-CM Code USC97-HS Code Onset Dates Condition Status SNOMED Code Problem Screening for malignant neoplasm of the cervix V76.2 Active 982826414 Problem Need for prophylactic vaccination and inoculation, Influenza V04.81 Active 519665524 Problem Unspecified breast screening V76.10 Active 238822101 Problem Urge incontinence 788.31 Active 00857375 Problem Candidiasis of vulva and vagina 112.1 Active 48974418 Problem Unspecified episodic mood disorder F39 Active 030950426 Problem Anxiety disorder, unspecified F41.9 Active 353430177 Problem Screening examination for pulmonary tuberculosis V74.1 Active 820554848 Problem PPV23 (PNEUMOVAX) 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
--- OUTSIDE RECORDS SUMMARY | 2018-12-11 10:28 | XMS REPORT ---
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 Name Role Phone IRVING ELEAZAR Unavailable PROBLEMS Type Condition ICD9-CM Code BMR33-NU Code Onset Dates Condition Status SNOMED Code Problem Stress incontinence of urine N39.3 Active 45037496 Problem Anxiety F41.9 Active 17543749 Problem Anxiety disorder, unspecified F41.9 Active 070163251 Problem Unspecified episodic mood disorder F39 Active 882974316 Problem Unspecified personality disorder F60.9 Active [id number] ALLERGIES No Known Allergies ENCOUNTERS Encounter Location Date Diagnosis [facility] [id number] [place] [address] 92502- 0641 Apr, [facility] [id number] [place] [address] 28271- 5135 March, Anxiety disorder, unspecified F41.9 [facility] [id number] [place] [address] 49574- 6212 March, Unspecified episodic mood disorder F39 ; Anxiety disorder, unspecified F41.9 and Unspecified personality disorder F60.9 [facility] [id number] [place] [address] 89935- 8537 March, Anxiety disorder, unspecified F41.9 [facility] [id number] [place] [address] 38578- 6576 Feb, Unspecified episodic mood disorder F39 ; Anxiety disorder, unspecified F41.9 and Unspecified personality disorder F60.9 [facility] [id number] [place] [address] 13241- 9178 Feb, Unspecified episodic mood disorder F39 ; Anxiety disorder, unspecified F41.9 and Unspecified personality disorder F60.9 [facility] [place] [address] [address] Feb, Anxiety disorder, unspecified F41.9 [facility] [place] [id number] [place] [address] [id number]- 3326 Jan, Unspecified episodic mood disorder F39 ; Anxiety disorder, unspecified F41.9 and Unspecified personality disorder F60.9 [facility] [place] [id number] [place] [address] 05342- 7735 Jan, Anxiety F41.9 [facility] [place] [id number] [place] [address] 75659- 1335 Jan, Anxiety disorder, unspecified F41.9 [facility] [place] [id number] [place] [address] 24053- 1546 Dec, Unspecified episodic mood disorder F39 ; Anxiety disorder, unspecified F41.9 and Unspecified personality disorder F60.9 [facility] [place] [address] [address] 2583 Dec, Anxiety F41.9 [facility] [place] [id number] [place] [address] 03947- 7736 Dec, Anxiety disorder, unspecified F41.9 [facility] [place] [address] [address] 4648 Dec, Unspecified episodic mood disorder F39 ; Anxiety disorder, unspecified F41.9 and Unspecified personality disorder F60.9 [facility] [place] [address] [address] 6974 Nov, [facility] [place] [id number] [place] [address] 20048- 9184 Nov, [facility] [place] [address] [address]- 3729 Nov, Unspecified episodic mood disorder F39 ; Anxiety disorder, unspecified F41.9 and Unspecified personality disorder F60.9 [facility] [place] [id number] [place] [address] 48915- 9660 Nov, Anxiety disorder, unspecified F41.9 [facility] [id number] [place] [address] 74771- 5344 Oct, Unspecified episodic mood disorder F39 ; Anxiety disorder, unspecified F41.9 and Unspecified personality disorder F60.9 [facility] [id number] [place] [address] 89287- 2552 Oct, Vaginal yeast infection B37.3 [facility] [id number] [place] [address] 26998- 7674 Oct, [facility] [id number] [place] [address] 90108- 8072 Oct, Anxiety disorder, unspecified F41.9 [facility] [id number] [place] [address] 07568- 0875 Oct, Routine gynecological examination Z01.419 ; Screening for breast cancer Z12.31 and Vaginal yeast infection B37.3 [facility] [id number] [place] [address] 12039- 5256 Sep, Unspecified episodic mood disorder F39 ; Anxiety disorder, unspecified F41.9 and Unspecified personality disorder F60.9 [facility] [id number] [place] [address] 84913- 2508 Sep, [facility] [id number] [place] [address] 39508- 5846 Sep, Anxiety disorder, unspecified F41.9 [facility] [id number] [place] [address] 55975- 2903 Sep, Bronchitis J40 and Stress incontinence of urine N39.3 [facility] [id number] [place] [address] 97731- 1554 Sep, Stress incontinence of urine N39.3 ; Bronchitis J40 and Anxiety F41.9 [facility] [id number] [place] [address] 20881- 5758 Sep, [facility] [place] [id number] [place] [address] 92345- 2313 Sep, Unspecified episodic mood disorder F39 ; Anxiety disorder, unspecified F41.9 and Unspecified personality disorder F60.9 [facility] [id number] [place] [address] 16271- 4569 Aug, Anxiety F41.9 ; Stress incontinence of urine N39.3 and Encounter for immunization Z23 [facility] [place] [id number] [place] [address] 43476- 7204 Aug, Anxiety disorder, unspecified F41.9 [facility] [id number] [place] [address] 20346- 6828 Jul, Unspecified episodic mood disorder F39 ; Anxiety disorder, unspecified F41.9 and Unspecified personality disorder F60.9 [facility] [id number] [place] [address] 80902- 8511 Jul, [facility] [id number] [place] [address] 31737- 2989 Jul, Unspecified episodic mood disorder F39 ; Anxiety disorder, unspecified F41.9 and Unspecified personality disorder F60.9 [facility] [id number] [place] [address] 33404- 3658 Jul, Anxiety disorder, unspecified F41.9 [facility] [place] [id number] [place] [address] 06629- 2523 Jun, Unspecified episodic mood disorder F39 ; Anxiety disorder, unspecified F41.9 and Unspecified personality disorder F60.9 [facility] [id number] [place] [address] 02565- 3057 Jun, Anxiety disorder, unspecified F41.9 [facility] [place] [id number] [place] [address] 71909- 6713 Jun, Unspecified episodic mood disorder F39 ; Anxiety disorder, unspecified F41.9 and Unspecified personality disorder F60.9 [facility] [place] [id number] [place] [address] 75339- 4585 Jun, [facility] [place] [id number] [place] [address] 27742- 7171 May, Anxiety disorder, unspecified F41.9 [facility] [place] [id number] [place] [address] 26519- 1591 May, Unspecified episodic mood disorder F39 ; Anxiety disorder, unspecified F41.9 and Unspecified personality disorder F60.9 [facility] [place] [id number] [place] [address] 96996- 2553 Apr, Anxiety disorder, unspecified F41.9 [facility] [place] [id number] [place] [address] 55998- 7216 March, Unspecified episodic mood disorder F39 ; Anxiety disorder, unspecified F41.9 and Unspecified personality disorder F60.9 [facility] [place] [id number] [place] [address] 53122- 3159 March, Bronchitis J40 [facility] [place] [id number] [place] [address] 44509- 2393 March, Unspecified episodic mood disorder F39 ; Anxiety disorder, unspecified F41.9 and Unspecified personality disorder F60.9 [facility] [place] [id number] [place] [address] 32628- 5888 Feb, [facility] [place] [id number] [place] [address] 77374- 6110 Feb, Unspecified episodic mood disorder F39 ; Anxiety disorder, unspecified F41.9 and Unspecified personality disorder F60.9 [facility] [place] [address] [address]- 3265 Feb, Bronchitis J40 [facility] [place] [id number] [place] [address] 56573- 5513 Feb, Unspecified episodic mood disorder F39 ; Anxiety disorder, unspecified F41.9 and Unspecified personality disorder F60.9 [facility] [place] [address] [address]- 8410 Jan, Unspecified episodic mood disorder F39 ; Anxiety disorder, unspecified F41.9 and Unspecified personality disorder F60.9 [facility] [place] [id number] [place] [address] 29194- 9120 Jan, Bronchitis J40 [facility] [place] [id number] [place] [address] 67208- 6170 Jan, Unspecified episodic mood disorder F39 ; Anxiety disorder, unspecified F41.9 and Unspecified personality disorder F60.9 [facility] [place] [address] [address]- 3534 Dec, Anxiety F41.9 [facility] [place] [id number] [place] [address] 41686- 9231 Dec, Unspecified episodic mood disorder F39 ; Anxiety disorder, unspecified F41.9 and Unspecified personality disorder F60.9 [facility] [id number] [id number] Dec, [facility] [place] [address] [address]- 1363 Dec, Unspecified episodic mood disorder F39 ; Anxiety disorder, unspecified F41.9 and Unspecified personality disorder F60.9 [facility] [place] [address] [address]- 8563 Nov, [facility] [place] [id number] [place] [address] 25375- 4355 Oct, Unspecified episodic mood disorder F39 ; Anxiety disorder, unspecified F41.9 and Unspecified personality disorder F60.9 [facility] [place] [address] [address]- 1095 Oct, [facility] [address] [address] Oct, Acute upper respiratory infection, unspecified J06.9 ; Other viral agents as the cause of diseases classified elsewhere B97.89 and Cough R05 [facility] [place] [id number] [address]- 7084 Aug, Unspecified episodic mood disorder F39 ; Anxiety disorder, unspecified F41.9 and Unspecified personality disorder F60.9 [facility] [place] [id number] [place] [address] 52292- 4381 Aug, [facility] [place] [id number] [place] [address] 71312- 2184 Aug, [facility] [place] [id number] [place] [address] 52297- 4376 Aug, [facility] [place] [id number] [place] [address] 01608- 4155 Aug, Visit for TB skin test Z11.1 [facility] [place] [id number] [place] [address] 82791- 7134 Jul, [facility] [place] [id number] [place] [address] 58642- 3387 Jul, [facility] [place] [address] [address]- 9824 Jul, [facility] [place] [id number] [place] [address] 40560- 5306 Jul, [facility] [place] [address] [address]- 4719 Jul, [facility] [place] [id number] [place] [address] 27997- 0186 Jul, Unspecified episodic mood disorder F39 ; Anxiety disorder, unspecified F41.9 and Unspecified personality disorder F60.9 [facility] [place] [address] [address]- 2101 Jun, [facility] [place] [address] [address]- 3162 Jun, Unspecified episodic mood disorder F39 ; Anxiety disorder, unspecified F41.9 and Unspecified personality disorder F60.9 [facility] [place] [address] [address]- 0437 Jun, [facility] [place] [id number] [place] [address] 61512- 8979 May, Unspecified episodic mood disorder F39 ; Anxiety disorder, unspecified F41.9 and Unspecified personality disorder F60.9 [facility] [place] [id number] [place] [address] 18018- 9449 May, [facility] [place] [id number] [place] [address] 90353- 3160 May, [facility] [place] [id number] [place] [address] 05837- 3328 May, Edema, unspecified R60.9 [facility] [place] [id number] [place] [address] 63729- 5425 Apr, [facility] [place] [id number] [place] [address] 82703- 2309 Apr, Unspecified episodic mood disorder F39 ; Anxiety disorder, unspecified F41.9 and Unspecified personality disorder F60.9 [facility] [place] [address] [address]- 9931 Apr, Anxiety F41.9 [facility] [place] [id number] [place] [address] 32418- 4101 March, Unspecified episodic mood disorder F39 ; Anxiety disorder, unspecified F41.9 and Unspecified personality disorder F60.9 [facility] [place] [address] [address]- 8949 March, Unspecified episodic mood disorder F39 ; Anxiety disorder, unspecified F41.9 and Unspecified personality disorder F60.9 [facility] [place] [id number] [address]- 8902 Feb, Anxiety F41.9 [facility] [place] [id number] [place] [address] 29686- 9880 Feb, Unspecified episodic mood disorder F39 ; Anxiety disorder, unspecified F41.9 and Unspecified personality disorder F60.9 [facility] [place] [id number] [place] [address] 87259- 4096 Jan, Unspecified episodic mood disorder F39 ; Anxiety disorder, unspecified F41.9 and Unspecified personality disorder F60.9 [facility] [place] [id number] [place] [address] 96947- 2032 Jan, Unspecified episodic mood disorder F39 ; Anxiety disorder, unspecified F41.9 and Unspecified personality disorder F60.9 [facility] [place] [id number] [place] [address] 66921- 9382 Jan, Edema, unspecified R60.9 [facility] [place] [id number] [place] [address] 59096- 8766 Dec, [facility] [place] [id number] [place] [address] 38937- 2523 Dec, [facility] [place] [id number] [place] [address] 32442- 7049 Dec, [facility] [place] [id number] [place] [address] 40346- 6396 Dec, Unspecified episodic mood disorder F39 ; Anxiety disorder, unspecified F41.9 and Unspecified personality disorder F60.9 [facility] [place] [id number] [place] [address] 90620- 3935 Nov, [facility] [place] [id number] [place] [address] 82601- 4125 Nov, Unspecified episodic mood disorder F39 ; Anxiety disorder, unspecified F41.9 and Unspecified personality disorder F60.9 [facility] [place] [id number] [address]- 9221 Oct, Unspecified episodic mood disorder F39 ; Anxiety disorder, unspecified F41.9 and Unspecified personality disorder F60.9 [facility] [id number] [place] [address] 23924- 3532 Oct, Unspecified episodic mood disorder F39 ; Anxiety disorder, unspecified F41.9 and Unspecified personality disorder F60.9 [facility] [id number] [place] [address] 95545- 9682 Sep, Unspecified episodic mood disorder F39 ; Anxiety disorder, unspecified F41.9 and Unspecified personality disorder F60.9 [facility] [id number] [place] [address] 58625- 5191 Sep, Encounter for immunization Z23 [facility] [id number] [place] [address] 19834- 1304 Sep, Edema of left lower extremity R60.0 [facility] [place] [id number] [place] [address] 94201- 6134 Aug, Unspecified episodic mood disorder F39 ; Anxiety disorder, unspecified F41.9 and Unspecified personality disorder F60.9 [facility] [id number] [place] [address] 34790- 2918 Aug, [facility] [id number] [place] [address] 64611- 4073 Aug, Edema of left lower extremity R60.0 [facility] [place] [id number] [place] [address] 12610- 7846 Aug, [facility] [place] [id number] [place] [address] 60283- 4216 Aug, Unspecified episodic mood disorder F39 ; Anxiety disorder, unspecified F41.9 and Unspecified personality disorder F60.9 [facility] [place] [id number] [place] [address] 72974- 3526 Jul, Unspecified episodic mood disorder 296.90 ; Anxiety disorder , unspecified 300.00 and Unspecified personality disorder 301.9 [facility] [place] [address] [address]- 7839 Jul, Unspecified episodic mood disorder 296.90 ; Anxiety disorder , unspecified 300.00 and Unspecified personality disorder 301.9 [facility] [place] [id number] [address]- 6331 Jul, [facility] [place] [id number] [place] [address] 51778- 2642 Jun, Unspecified episodic mood disorder 296.90 ; Anxiety disorder , unspecified 300.00 and Unspecified personality disorder 301.9 [facility] [place] [id number] [place] [address] 62985- 8169 May, Unspecified episodic mood disorder 296.90 ; Anxiety disorder , unspecified 300.00 and Unspecified personality disorder 301.9 [facility] [place] [id number] [place] [address] 75455- 0904 May, Anxiety disorder, unspecified 300.00 [facility] [place] [id number] [place] [address]- [address] May, Anxiety disorder, unspecified 300.00 and Edema 782.3 [facility] [place] [id number] [place] [address]- [address] May, Unspecified episodic mood disorder 296.90 ; Anxiety disorder , unspecified 300.00 and Unspecified personality disorder 301.9 [facility] [place] [id number] [address] Apr, [facility] [place] [id number] [place] [address]- 2602 Apr, Unspecified episodic mood disorder 296.90 ; Anxiety disorder , unspecified 300.00 and Personality disorder, unspecified 301.9 [facility] [place] [id number] [address] Apr, Unspecified episodic mood disorder 296.90 ; Anxiety disorder , unspecified 300.00 and Unspecified personality disorder 301.9 [facility] [place] [id number] [address] March, [facility] [place] [id number] [address] March, Unspecified episodic mood disorder 296.90 ; Anxiety disorder , unspecified 300.00 and Unspecified personality disorder 301.9 [facility] [place] [id number] [address] March, Unspecified episodic mood disorder 296.90 ; Anxiety disorder 300.00 and Unspecified personality disorder 301.9 [facility] [place], [facility] [id number] [address] March, [facility] [place] [id number] [address] March, [facility] [place] [id number] [address] Feb, [facility] [place] [id number] [address] Feb, [facility] [place] [id number] [address] Feb, [facility] [place] [id number] [address] Jan, [facility] [place] [id number] [address] Jan, [facility] [place] [address] [id number] [address] Jan, [facility] [place] [address] [address] Jan, [facility] [place] [address] [id number] [address] Jan, [facility] [place] [address] [id number] [address] Jan, [facility] [place] [facility] [address] [id number] [place] [id number] Jan, [facility] [place] [facility] [address] [id number] [place] [address] Jan, 2014 [facility] [place] [facility] [address] [id number] [place] [address]- 8617 Jan, 2014 [facility] [place] [facility] [address] [id number] [place] [address]- 6723 Jan, 2014 [facility] [place] [facility] [address] [id number] [place] [address]- 1696 Jan, 2014 [facility] [place] [facility] [address] [id number] [place] [address]- 5546 Jan, 2014 [facility] [place] [facility] [address] [id number] [place] [address]- 0058 Jan, 2014 [facility] [place] [facility] [address] [id number] [address] Jan, 2014 [facility] [place] [facility] [address] [id number] [place] [address]- 7522 Jan, [facility] [place] [facility] [address] [id number] [address] Jan, [facility] [place] [facility] [address] [id number] [address] Dec, 2014 [facility] [place] [facility] [address] [id number] [address] 93[address] Dec, 2014 [facility] [place] [facility] [address] [id number] [place] [address] Dec, [facility] [place] [facility] [address] [id number] [address]- [address] Dec, 2014 [facility] [place] [facility] [address] [id number] [place] [address]- 0617 Nov, [facility] [place] [facility] [address] [id number] [place] [address]- 8035 Nov, [facility] [place] [facility] [address] [id number] [place] [address]- 8616 Nov, [facility] [place] [facility] [address] [id number] [place] [address]- 5065 Nov, [facility] [address] [id number] [place] [address]- 8599 15 Oct, 2014 [facility] [place] [facility] [address] [id number] [place] [address]- 8153 Oct, [facility] [place] [facility] [address] [id number] [place] [address]- 5534 Oct, [facility] [place] [facility] [address] [id number] [place] [address]- 5634 Oct, [facility] [place] [facility] [address] [id number] [place] [address]- 5102 Oct, [facility] [place] [facility] [address] [id number] [place] [address]- 8810 Oct, [facility] [place] [facility] [address] [id number] [place] [address]- 0659 Oct, [facility] [place] [facility] [address] [id number] [place] [address]- 7796 Oct, [facility] [place] [facility] [address] [id number] [place] [address]- 1761 Oct, [facility] [place] [facility] [address] [id number] [place] [address]- 6057 Oct, [facility] [place] [facility] [address] [id number] [place] [address]- 7561 Oct, [facility] [place] [facility] [address] [id number] [place] [address]- 3317 Oct, [facility] [place] [facility] [address] [id number] [place] [address]- 3774 Oct, [facility] [place] [facility] [address] [id number] [place] [address]- 8138 Oct, [facility] [place] [facility] [address] [id number] [place] [address]- 1044 Oct, [facility] [place] [facility] [address] [id number] [place] [address]- 6111 Oct, [facility] [place] [facility] [address] [id number] [place] [address]- 0191 Sep, [facility] [place] [facility] [address] [id number] [place] [address]- 8770 Sep, [facility] [place] [facility] [address] [id number] [place] [address]- 0371 Sep, [facility] [place] [facility] [address] [id number] [place] [address]- 9788 Sep, [facility] [place] [facility] [address] [id number] [place] [address]- 4099 Sep, [facility] [place] [facility] [address] [id number] [place] [address]- 5749 Sep, [facility] [place] [facility] [address] [id number] [place] [address]- 2993 Sep, [facility] [place] [facility] [address] [id number] [place] [address]- 3589 Sep, [facility] [place] [facility] [address] [id number] [place] [address]- 0026 Sep, [facility] [place] [facility] [address] [id number] [place] [address]- 1901 Sep, [facility] [place] [facility] [address] [id number] [place] [address]- 2457 Aug, [facility] [place] [facility] [address] [id number] [place] [address]- 4400 Aug, [facility] [place] [facility] [address] [id number] [place] [address]- 6492 14 Aug, 2014 [facility] [place] [facility] [address] [id number] [place] [address]- 0379 14 Aug, 2014 [facility] [place] [facility] [address] [id number] [place] [address]- 4158 Aug, [facility] [place] [facility] [address] [id number] [place] [address]- 3646 Aug, [facility] [place] [facility] [address] [id number] [place] [address]- 7808 Aug, [facility] [place] [facility] [address] [id number] [place] [address]- 2366 Aug, [facility] [place] [facility] [address] [id number] [place] [address]- 7093 Jul, [facility] [place] [facility] [address] [id number] [place] [address]- 2627 Jul, [facility] [place] [facility] [address] [id number] [place] [address]- 1145 Jul, [facility] [place] [facility] [address] [id number] [place] [address]- 9846 05 Jul, 2014 [facility] [place] [facility] [address] [id number] [place] [address]- 1812 Jul, [facility] [place] [facility] [address] [id number] [place] [address]- 8829 Jul, [facility] [place] [facility] [address] [id number] [place] [address]- 8124 Jun, [facility] [place] [facility] [address] [id number] [place] [address]- 2001 Jun, [facility] [place] [facility] [address] [id number] [place] [address]- 2961 May, [facility] [place] [facility] [address] [id number] [place] [address]- 9341 May, [facility] [place] [facility] [address] [id number] [place] [address]- 3199 May, [facility] [address] [id number] [place] [address]- 4459 May, [facility] [place] [facility] [address] [id number] [place] [address]- 1540 May, [facility] [address] [id number] [place] [address]- 3889 May, [facility] [place] [facility] [address] [id number] [place] [address]- 1409 May, [facility] [place] [facility] [address] [id number] [place] [address]- 1401 May, [facility] [place] [facility] [address] [id number] [place] [address]- 9811 Apr, [facility] [place] [facility] [address] [id number] [place] [address]- 9206 Apr, [facility] [address] [id number] [place] [address]- 0177 March, [facility] [place] [facility] [address] [id number] [place] [address]- 1736 March, [facility] [address] [id number] [place] [address]- 2781 Feb, [facility] [place] [facility] [address] [id number] [place] [address]- 5374 Feb, [facility] [place] [facility] [address] [id number] [place] [address]- 2410 Feb, [facility] [place] [facility] [address] [id number] [place] [address]- 0917 Feb, [facility] [place] [facility] [address] [id number] [place] [address]- 2351 Feb, [facility] [place] [facility] [address] [id number] [place] [address]- 8153 Feb, [facility] [place] [facility] [address] [id number] [place] [address]- 7347 Feb, [facility] [place] [facility] [address] [id number] [place] [address]- 8795 Feb, [facility] [place] [facility] [address] [id number] [place] [address]- 6743 Feb, [facility] [place] [facility] [address] [id number] [place] [address]- 1502 Feb, [facility] [place] [facility] [address] [id number] [place] [address]- 1555 Jan, [facility] [place] [facility] [address] [id number] [place] [address]- 0908 Jan, [facility] [place] [facility] [address] [id number] [place] [address]- 3065 Jan, [facility] [place] [facility] [address] [id number] [place] [address]- 2667 Jan, [facility] [place] [facility] [address] [id number] [place] [address]- 3427 Jan, [facility] [place] [facility] [address] [id number] [place] [address]- 4923 Dec, [facility] [place] [facility] [address] [id number] [place] [address]- 7085 Dec, [facility] [place] [facility] [address] [id number] [place] [address]- 1197 Dec, [facility] [place] [facility] [address] [id number] [place] [address]- 1839 Dec, [facility] [place] [facility] [address] [id number] [place] [address]- 2027 Dec, [facility] [place] [facility] [address] [id number] [place] [address]- 7542 Dec, [facility] [place] [facility] [address] [id number] [place] [address]- 8204 Nov, [facility] [address] [id number] [place] [address]- 1352 Nov, [facility] [address] [id number] [place] [address]- 8657 Nov, [facility] [address] [id number] [place] [address]- 0300 Nov, [facility] [address] [id number] [place] [address]- 1790 Nov, [facility] [address] [id number] [place] [address]- 8918 Nov, [facility] [address] [id number] [place] [address]- 8372 Nov, [facility] [address] [id number] [place] [address]- 2474 Nov, [facility] [address] [id number] [place] [address]- 5523 Oct, [facility] [address] [id number] [place] [address]- 3219 Oct, [facility] [address] [id number] [place] [address]- 2346 Oct, [facility] [address] [id number] [place] [address]- 8395 Oct, [facility] [address] [id number] [place] [address]- 3289 Oct, [facility] [address] [id number] [place] [address]- 5177 Oct, [facility] [address] [id number] [place] [address]- 4191 Oct, [facility] [address] [id number] [place] [address]- 8964 Oct, [facility] [place] [facility] [address] [id number] [place] [address]- 2643 Sep, [facility] [place] [facility] [address] [id number] [place]77 Sep, [facility] [place] [facility] [address] [id number] [place] [address]- 6022 Sep, [facility] [place] [facility] [address] [id number] [place] [address]- 2884 Sep, [facility] [place] [facility] [address] [id number] [place] [address]- 6592 Sep, [facility] [place] [facility] [address] [id number] [place] [address]- 5139 Sep, [facility] [place] [facility] [address] [id number] [place] [address]- 3086 Sep, [facility] [place] [facility] [address] [id number] [place] [address]- 7194 Sep, [facility] [place] [facility] [address] [id number] [place] [address]- 2593 Aug, [facility] [place] [facility] [address] [id number] [place] [address]- 3509 Aug, [facility] [place] [facility] [address] [id number] [place] [address]- 9978 Aug, [facility] [place] [facility] [address] [id number] [address]- 7647 Jul, [facility] [place] [facility] [address] [id number] [place] [address]- 2568 Jun, [facility] [place] [facility] [address] [id number] [place] [address]- 1453 Jun, [facility] [place] [facility] [address] [id number] [place] [address]- 0258 Jun, [facility] [place] [facility] [address] [id number] [address]- 1835 Jun, [facility] [address] [id number] [place] [address]- 7039 Jun, [facility] [place] [facility] [address] [id number] [place] [address]- 0189 May, [facility] [address] [id number] [place] [address]- 6860 May, [facility] [address] [id number] [place] [address]- 8055 Apr, [facility] [address] [id number] [place] [address]- 9936 Apr, [facility] [address] [id number] [place] [address]- 8093 March, [facility] [address] [id number] [place] [address]- 4607 March, [facility] [address] [id number] [place] [address]- 6824 March, [facility] [address] [id number] [place] [address]- 8367 March, [facility] [address] [id number] [place] [address]- 5242 March, [facility] [address] [id number] [place] [address]- 7556 Feb, [facility] [place] [facility] [address] [id number] [place] [address]- 6367 Feb, [facility] [place] [facility] [address] [id number] [place] [address]- 2206 Feb, [facility] [place] [facility] [address] [id number] [place] [address]- 7337 Jan, [facility] [place] [facility] [address] [id number] [place] [address]- 3925 Dec, [facility] [place] [facility] [address] [id number] [place] [address]- 1299 27 Dec, 2012 [facility] [address] [id number] [place] [address]- 2856 18 Dec, 2012 [facility] [place] [facility] [address] [id number] [place] [address]- 2546 Dec, [facility] [place] [facility] [address] [id number] [place] [address]- 7599 Nov, [facility] [place] [facility] [address] [id number] [place] [address]- 6161 Nov, [facility] [place] [facility] [address] [id number] [place] [address]- 3248 Nov, [facility] [address] [id number] [place] [address]- 2411 Nov, [facility] [address] [id number] [place] [address]- 1286 Oct, [facility] [address] [id number] [place] [address]- 5325 Oct, [facility] [address] [id number] [place] [address]- 6838 Oct, [facility] [place] [facility] [address] [id number] [place] [address]- 6903 Oct, [facility] [place] [facility] [address] [id number] [place] [address]- 9659 14 Sep, 2012 [facility] [place] [facility] [address] [id number] [place] [address]- 4209 14 Sep, 2012 [facility] [place] [facility] [address] [id number] [place] [address]- 6234 13 Sep, 2012 [facility] [place] [facility] [address] [id number] [place] [address]- 9190 13 Sep, 2012 [facility] [place] [facility] [address] [id number] [place] [address]- 4375 Sep, [facility] [place] [facility] [address] [id number] [place] [address] 2546 Sep, [facility] [place] [facility] [address] [id number] [place] [address]- 2546 Aug, [facility] [place] [facility] [address] [id number] [place] [address]- 2546 Aug, [facility] [place] [facility] [address] [id number] [place] [address]- 2546 Aug, [facility] [place] [facility] [address] [id number] [place] [address] 2546 Jul, [facility] [place] [facility] [address] [id number] [place] [address] 2546 Jul, [facility] [place] [facility] [address] [id number] [place] [address]- 2546 Jun, [facility] [place] [facility] [address] [id number] [place] [address]- 2986 May, [facility] [place] [facility] [address] [id number] [place] [address]- 2744 May, [facility] [place] [facility] [address] [id number] [place] [address] 2546 Apr, [facility] [place] [facility] [address] [id number] [address]- 2546 Apr, [facility] [place] [facility] [address] [id number] [address]- 2546 March, [facility] [place] [facility] [address] [id number] [place] [address]- 2546 March, [facility] [place] [facility] [address] [id number] [place] [address]- 2546 Feb, [facility] [place] [facility] [address] [id number] [place] [address]- 2546 Feb, [facility] [place] [facility] [address] [id number] [place] [address]- 7155 09 Feb, 2012 [facility] [place] [facility] [address] [id number] [place] [address]- 6140 Feb, [facility] [place] [facility] [address] [id number] [place] [address] 15 Jan, 2012 [facility] [place] [facility] [address] [id number] [place] [address] Jan, [facility] [place] [facility] [address] [id number] [place] [address] 29 Dec, 2011 [facility] [place] [facility] [address] [id number] [place] [address] 28 Dec, 2011 [facility] [place] [facility] [address] [facility] [id number] [place] [address] 26 Dec, 2011 [facility] [place] [facility] [address] [facility] [id number] [place] [address] 23 Dec, 2011 [facility] [place] [facility] [address] [id number] [place] [address] Dec, [facility] [place] [facility] [address] [facility] [id number] [place] [address] 15 Dec, 2011 [facility] [place] [facility] [address] [facility] [id number] [place] [address] Dec, [facility] [place] [facility] [address] [facility] [id number] [place] [address] Dec, [facility] [place] [facility] [address] [facility] [id number] [place] [address] 08 Dec, 2011 [facility] [place] [facility] [address] [facility] [id number] [place] [address] 07 Dec, 2011 [facility] [place] [facility] [address] [facility] [id number] [place] [address] 02 Dec, 2011 [facility] [place] [facility] [address] [facility] [id number] [address] Dec, [facility] [address] [id number] [place] [address] Dec, [facility] [place] [facility] [address] [id number] [place] [address] Nov, [facility] [address] [id number] [place] [address] Nov, [facility] [place] [facility] [address] [id number] [place] [address] Nov, [facility] [address] [id number] [place] [address] Nov, [facility] [address] [id number] [place] [address] Nov, [facility] [address] [facility] [id number] [place] [address] Nov, [facility] [place] [facility] [address] [id number] [place] [address] Oct, [facility] [address] [id number] [place] [address] Oct, [facility] [place] [facility] [address] [facility] [id number] [place] [address] Sep, [facility] [place] [facility] [address] [id number] [place] [address] Sep, [facility] [place] [facility] [address] [id number] [place] [address] Sep, [facility] [place] [facility] [address] [id number] [place] [address] Sep, [facility] [place] [facility] [address] [facility] [id number] [place] [address] Sep, [facility] [place] [facility] [address] [facility] [id number] [place] [address] March, [facility] [place] [facility] [address] [id number] [address] Oct, [facility] [place] [id number] [address] Oct, [facility] [place] [id number] [address] Oct, [facility] [place] [id number] [address] Sep, [facility] [place] [id number] [address] [address] Sep, [facility] [place] [id number] [address] Sep, [facility] [place] [id number] [address] Sep, [facility] [place] [id number] [address] Aug, [facility] [place] [id number] [address] Oct, [facility] [place] [id number] [address] Oct, [facility] [place] [address] [id number] [address] May, IMMUNIZATIONS No Known Immunizations SOCIAL HISTORY Never Assessed REASON FOR VISIT Annual physical (female)--Rayshawn Bhakta MA PLAN OF CARE Activity Details Follow Up 1 Year, sooner prn Reason: VITAL SIGNS Height 68 in 2017-10-17 Weight 249.0 lbs 2017-10-17 Temperature 98.4 degrees Fahrenheit 2017-10-17 Heart Rate 72 bpm 2017-10-17 Respiratory Rate 18 2017-10-17 BMI 37.86 kg/m2 2017-10-17 Blood pressure systolic 138 mmHg 2017-10-17 Blood pressure diastolic 82 mmHg 2017-10-17 MEDICATIONS Medication Instructions Dosage Frequency Start Date End Date Duration Status Amlodipine Besylate 10 mg TAKE ONE TABLET BY MOUTH DAILY 90 Active Advair Diskus 250-50 MCG/DOSE INHALE ONE PUFF BY MOUTH TWICE DAILY 30 Active Pantoprazole Sodium 40 MG TAKE ONE TABLET BY MOUTH DAILY 90 Active Medical Compression Stockings N/A as directed Aug, Active Triamcinolone Acetonide 0.1 % Externally Twice a day 1 application to affected area 12h Sep, Active Diflucan 150 MG 1 tablet Oct, 1 dose Active Propranolol HCl 20 mg Orally 2 times a day 1 tablet 12h 90 Active Sertraline HCl 100 mg 2 tablets 24h 30 Active Valium 10 MG Orally Twice a day 1 tablet 12h 30 Jan, 2015 28 days Active VESIcare 10 mg Orally Once a day 1 tablet 24h 11 Sep, 2017 9 Dec, 2017 30 day(s) Active RESULTS No Results PROCEDURES Procedure Date Ordered Result Body Site Bacterial Vaginosis In House Oct 17, 2017 [facility], 2017 SPECIMEN HANDLING Oct 17, 2017 No Charge Oct 17, 2017 INSTRUCTIONS MEDICATIONS ADMINISTERED No Known Medications MEDICAL (GENERAL) HISTORY Type Description Date Medical History hypertension Medical History panic attacks Surgical History cholecystectomy 2008 Hospitalization History surgery
--- OUTSIDE RECORDS SUMMARY | 2018-12-11 10:28 | XMS REPORT ---
Author LEIDA Colunga [facility] eClinicalWorks Address Unknown Phone Unavailable Care Team Providers [employer] Name Role Phone LEIDA ANDINO CP Unavailable Allergies No Known Allergies Problems Problem Type Condition Code Onset Dates Condition Status Problem Candidiasis of vulva and vagina 112.1 Active Problem Unspecified breast screening V76.10 Active Problem Screening for malignant neoplasm of the cervix V76.2 Active Problem Urge incontinence 788.31 Active Problem Anxiety disorder, unspecified F41.9 Active Problem Unspecified personality disorder F60.9 Active Problem Unspecified episodic mood disorder F39 Active Problem PPV23 (PNEUMOVAX) DX V03.82 Active Problem Need for prophylactic vaccination and inoculation, Influenza V04.81 Active Problem Edema 782.3 Active Problem Screening examination for pulmonary tuberculosis V74.1 Active Medications Medication Code System Code Instructions Start Date End Date Status Dosage Valium [facility] [address]-17 10 MG Orally Once a day as needed. MUST HAVE APPT FOR FURTHER REFILLS, NEEDS FASTING LABS AT APPT February 02, 2015 1 tablet Results No Known Results Summary Purpose eClinicalWorks Submission
[2018-12-11 10:29] LABS: BILIRUBIN,URINE NEGATIVE (NEGATIVE); CLARITY,URINE CLEAR; COLOR,URINE YELLOW; GLUCOSE, URINE (UA) NEGATIVE (NEGATIVE); KETONES,URINE NEGATIVE (NEGATIVE); LEUKOCYTE ESTERASE ,URINE 1+ (NEGATIVE); NITRITE,URINE NEGATIVE (NEGATIVE); PH,URINE 5 (5-9); PROTEIN,URINE 3+ (NEGATIVE); UROBILINOGEN,URINE 1 MG/DL (NORMAL)
--- OUTSIDE RECORDS SUMMARY | 2018-12-11 10:29 | XMS REPORT ---
Author Author SANJEEV PHELPS [facility] Address [address] [place] [address] Care Team Providers Care Bi[employer] Professor Name Role Phone SANJEEV PHELPS Unavailable PROBLEMS Type Condition ICD9-CM Code FLZ52-UV Code Onset Dates Condition Status SNOMED Code Problem Anxiety F41.9 Active 03472351 Problem Unspecified episodic mood disorder F39 Active 653007803 Problem Unspecified personality disorder F60.9 Active 00639062 Problem Anxiety disorder, unspecified F41.9 Active [id number] ALLERGIES No Information SOCIAL HISTORY Never Assessed PLAN OF CARE Activity Details Follow Up 2 Weeks Reason:BH F/U VITAL SIGNS MEDICATIONS Unknown Medications RESULTS No Results PROCEDURES Procedure Date Ordered Result Body Site Psychotherapy, patient &/family, 30 minutes, established patient January 24, 2017 IMMUNIZATIONS No Known Immunizations MEDICAL (GENERAL) HISTORY Type Description Date Medical History hypertension Medical History panic attacks Surgical History cholecystectomy 2008 Hospitalization History surgery
--- OUTSIDE RECORDS SUMMARY | 2018-12-11 10:29 | XMS REPORT ---
Author Author SANJEEV PHELPS [facility] Address [address] [place] [address] Care Team Providers Care Post Closing Specialist Name Role Phone SANJEEV PHELPS Unavailable PROBLEMS Type Condition ICD9-CM Code HSB36-SF Code Onset Dates Condition Status SNOMED Code Problem Stress incontinence of urine N39.3 Active 57019884 Problem Anxiety F41.9 Active 21657313 Problem Anxiety disorder, unspecified F41.9 Active 117197538 Problem Unspecified episodic mood disorder F39 Active 474263346 Problem Unspecified personality disorder F60.9 Active [id number] ALLERGIES No Information ENCOUNTERS Encounter Location Date Diagnosis [facility] [id number] [place] [address] 03199- 5611 Apr, [facility] [id number] [place] [address] 04705- 9336 March, Anxiety disorder, unspecified F41.9 [facility] [id number] [place] [address] 82021- 3602 March, Unspecified episodic mood disorder F39 ; Anxiety disorder, unspecified F41.9 and Unspecified personality disorder F60.9 [facility] [id number] [place] [address] 59676- 7476 March, Anxiety disorder, unspecified F41.9 [facility] [id number] [place] [address] 40202- 9134 Feb, Unspecified episodic mood disorder F39 ; Anxiety disorder, unspecified F41.9 and Unspecified personality disorder F60.9 [facility] [id number] [place] [address] 27866- 6512 Feb, Unspecified episodic mood disorder F39 ; Anxiety disorder, unspecified F41.9 and Unspecified personality disorder F60.9 [facility] [address], [place] [address] 5686 Feb, Anxiety disorder, unspecified F41.9 [facility] [id number] [place] [address] [id number]- 2256 Jan, Unspecified episodic mood disorder F39 ; Anxiety disorder, unspecified F41.9 and Unspecified personality disorder F60.9 [facility] [id number] [place] [address] 72639- 6989 Jan, Anxiety F41.9 [facility] [id number] [place] [address] 59621- 2401 Jan, Anxiety disorder, unspecified F41.9 [facility] [id number] [place] [address] 84560- 2378 Dec, Unspecified episodic mood disorder F39 ; Anxiety disorder, unspecified F41.9 and Unspecified personality disorder F60.9 [facility] [address], [place] [address] 0627 Dec, Anxiety F41.9 [facility] [id number] [place] [address] 96326- 3273 Dec, Anxiety disorder, unspecified F41.9 [facility] [address], [place] [address] 5481 Dec, Unspecified episodic mood disorder F39 ; Anxiety disorder, unspecified F41.9 and Unspecified personality disorder F60.9 [facility] [address], [place] [address] 0512 Nov, [facility] [id number] [place] [address] 44207- 6866 Nov, [facility] [address], [place] [address]- 1262 Nov, Unspecified episodic mood disorder F39 ; Anxiety disorder, unspecified F41.9 and Unspecified personality disorder F60.9 [facility] [id number] [place] [address] 62954- 8628 Nov, Anxiety disorder, unspecified F41.9 [facility] [id number] [place] [address] 31217- 7670 Oct, Unspecified episodic mood disorder F39 ; Anxiety disorder, unspecified F41.9 and Unspecified personality disorder F60.9 [facility] [id number] [place] [address] 98270- 8252 Oct, Vaginal yeast infection B37.3 [facility] [id number] [place] [address] 33663- 7141 Oct, [facility] [id number] [place] [address] 56718- 8160 Oct, Anxiety disorder, unspecified F41.9 [facility] [id number] [place] [address] 41635- 7015 Oct, Routine gynecological examination Z01.419 ; Screening for breast cancer Z12.31 and Vaginal yeast infection B37.3 [facility] [id number] [place] [address] 19410- 5750 Sep, Unspecified episodic mood disorder F39 ; Anxiety disorder, unspecified F41.9 and Unspecified personality disorder F60.9 [facility] [id number] [place] [address] 33530- 2062 Sep, [facility] [id number] [place] [address] 48781- 0254 Sep, Anxiety disorder, unspecified F41.9 [facility] [id number] [place] [address] 04981- 1110 Sep, Bronchitis J40 and Stress incontinence of urine N39.3 [facility] [id number] [place] [address] 68876- 6030 Sep, Stress incontinence of urine N39.3 ; Bronchitis J40 and Anxiety F41.9 [facility] [id number] [place] [address] 69421- 5360 Sep, [facility] [id number] [place] [address] 32856- 6811 Sep, Unspecified episodic mood disorder F39 ; Anxiety disorder, unspecified F41.9 and Unspecified personality disorder F60.9 [facility] [id number] [place] [address] 44398- 4000 Aug, Anxiety F41.9 ; Stress incontinence of urine N39.3 and Encounter for immunization Z23 [facility] [id number] [place] [address] 68228- 1816 Aug, Anxiety disorder, unspecified F41.9 [facility] [id number] [place] [address] 64350- 4605 Jul, Unspecified episodic mood disorder F39 ; Anxiety disorder, unspecified F41.9 and Unspecified personality disorder F60.9 [facility] [id number] [place] [address] 93457- 4457 Jul, [facility] [id number] [place] [address] 71967- 8445 Jul, Unspecified episodic mood disorder F39 ; Anxiety disorder, unspecified F41.9 and Unspecified personality disorder F60.9 [facility] [id number] [place] [address] 69533- 4173 Jul, Anxiety disorder, unspecified F41.9 [facility] [id number] [place] [address] 61657- 8009 Jun, Unspecified episodic mood disorder F39 ; Anxiety disorder, unspecified F41.9 and Unspecified personality disorder F60.9 [facility] [id number] [place] [address] 95762- 0099 Jun, Anxiety disorder, unspecified F41.9 [facility] [id number] [place] [address] 51011- 4501 Jun, Unspecified episodic mood disorder F39 ; Anxiety disorder, unspecified F41.9 and Unspecified personality disorder F60.9 [facility] [id number] [place] [address] 64363- 0416 Jun, [facility] [id number] [place] [address] 60775- 0869 May, Anxiety disorder, unspecified F41.9 [facility] [id number] [place] [address] 51945- 6068 May, Unspecified episodic mood disorder F39 ; Anxiety disorder, unspecified F41.9 and Unspecified personality disorder F60.9 [facility] [id number] [place] [address] 79180- 8225 Apr, Anxiety disorder, unspecified F41.9 [facility] [id number] [place] [address] 96914- 9034 March, Unspecified episodic mood disorder F39 ; Anxiety disorder, unspecified F41.9 and Unspecified personality disorder F60.9 [facility] [id number] [place] [address] 82200- 2158 March, Bronchitis J40 [facility] [id number] [place] [address] 17832- 8736 March, Unspecified episodic mood disorder F39 ; Anxiety disorder, unspecified F41.9 and Unspecified personality disorder F60.9 [facility] [id number] [place] [address] 89399- 1426 Feb, [facility] [id number] [place] [address] 59777- 7841 Feb, Unspecified episodic mood disorder F39 ; Anxiety disorder, unspecified F41.9 and Unspecified personality disorder F60.9 [facility] [address], [place] [address]- 9714 Feb, Bronchitis J40 [facility] [id number] [place] [address] 76736- 2311 Feb, Unspecified episodic mood disorder F39 ; Anxiety disorder, unspecified F41.9 and Unspecified personality disorder F60.9 [facility] [address], [place] [address]- 3137 Jan, Unspecified episodic mood disorder F39 ; Anxiety disorder, unspecified F41.9 and Unspecified personality disorder F60.9 [facility] [id number] [place] [address] 59686- 3799 Jan, Bronchitis J40 [facility] [id number] [place] [address] 70712- 9595 Jan, Unspecified episodic mood disorder F39 ; Anxiety disorder, unspecified F41.9 and Unspecified personality disorder F60.9 [facility] [address], [place] [address]- 3937 Dec, Anxiety F41.9 [facility] [id number] [place] [address] 35486- 8331 Dec, Unspecified episodic mood disorder F39 ; Anxiety disorder, unspecified F41.9 and Unspecified personality disorder F60.9 [facility] [id number] [id number] Dec, [facility] [address], [place] [address]- 1085 Dec, Unspecified episodic mood disorder F39 ; Anxiety disorder, unspecified F41.9 and Unspecified personality disorder F60.9 [facility] [address], [place] [address]- 8923 Nov, [facility] [id number] [place] [address] 02923- 1471 Oct, Unspecified episodic mood disorder F39 ; Anxiety disorder, unspecified F41.9 and Unspecified personality disorder F60.9 [facility] [address], [place] [address]- 9245 Oct, [facility] [address], [place] [address] -9263 Oct, Acute upper respiratory infection, unspecified J06.9 ; Other viral agents as the cause of diseases classified elsewhere B97.89 and Cough R05 [facility] [id number] [place] [address]- 2224 Aug, Unspecified episodic mood disorder F39 ; Anxiety disorder, unspecified F41.9 and Unspecified personality disorder F60.9 [facility] [id number] [place] [address] 34727- 6563 Aug, [facility] [id number] [place] [address] 94520- 3675 Aug, [facility] [id number] [place] [address] 85614- 4605 Aug, [facility] [id number] [place] [address] 32193- 1666 Aug, Visit for TB skin test Z11.1 [facility] [id number] [place] [address] 00044- 6881 Jul, [facility] [id number] [place] [address] 42899- 4997 Jul, [facility] [address], [place] [address]- 8019 Jul, [facility] [id number] [place] [address] 32083- 7377 Jul, [facility] [address], [place] [address]- 0208 Jul, [facility] [address] [place] [address] 22778- 0359 Jul, Unspecified episodic mood disorder F39 ; Anxiety disorder, unspecified F41.9 and Unspecified personality disorder F60.9 [facility] [address], [place] [address]- 5527 Jun, [facility] [address], [place] [address]- 2499 Jun, Unspecified episodic mood disorder F39 ; Anxiety disorder, unspecified F41.9 and Unspecified personality disorder F60.9 [facility] [address], [place] [address]- 4846 Jun, [facility] [address] [place] [address] 12476- 0817 May, Unspecified episodic mood disorder F39 ; Anxiety disorder, unspecified F41.9 and Unspecified personality disorder F60.9 [facility] [id number] [place] [address] 18697- 2499 May, [facility] [id number] [place] [address] 17897- 1245 May, [facility] [id number] [place] [address] 39945- 3643 May, Edema, unspecified R60.9 [facility] [id number] [place] [address] 25747- 9379 Apr, [facility] [id number] [place] [address] 96932- 5627 Apr, Unspecified episodic mood disorder F39 ; Anxiety disorder, unspecified F41.9 and Unspecified personality disorder F60.9 [facility] [address], [place] [address]- 6044 Apr, Anxiety F41.9 [facility] [address] [place] [address] 58343- 8749 March, Unspecified episodic mood disorder F39 ; Anxiety disorder, unspecified F41.9 and Unspecified personality disorder F60.9 [facility] [address], [place] [address]- 6111 March, Unspecified episodic mood disorder F39 ; Anxiety disorder, unspecified F41.9 and Unspecified personality disorder F60.9 [facility] [id number] [place] [address]- 3365 Feb, Anxiety F41.9 [facility] [id number] [place] [address] 54106- 2327 Feb, Unspecified episodic mood disorder F39 ; Anxiety disorder, unspecified F41.9 and Unspecified personality disorder F60.9 [facility] [id number] [place] [address] 64206- 1474 Jan, Unspecified episodic mood disorder F39 ; Anxiety disorder, unspecified F41.9 and Unspecified personality disorder F60.9 [facility] [id number] [place] [address] 63234- 1566 Jan, Unspecified episodic mood disorder F39 ; Anxiety disorder, unspecified F41.9 and Unspecified personality disorder F60.9 [facility] [id number] [place] [address] 19103- 0023 Jan, Edema, unspecified R60.9 [facility] [id number] [place] [address] 14837- 4632 Dec, [facility] [id number] [place] [address] 85563- 2192 Dec, [facility] [id number] [place] [address] 06299- 4619 Dec, [facility] [id number] [place] [address] 59689- 5536 Dec, Unspecified episodic mood disorder F39 ; Anxiety disorder, unspecified F41.9 and Unspecified personality disorder F60.9 [facility] [id number] [place] [address] 82829- 2559 Nov, [facility] [id number] [place] [address] 79769- 9361 Nov, Unspecified episodic mood disorder F39 ; Anxiety disorder, unspecified F41.9 and Unspecified personality disorder F60.9 [facility] [id number] [place] [address]- 3334 Oct, Unspecified episodic mood disorder F39 ; Anxiety disorder, unspecified F41.9 and Unspecified personality disorder F60.9 [facility] [id number] [place] [address] 58630- 1538 Oct, Unspecified episodic mood disorder F39 ; Anxiety disorder, unspecified F41.9 and Unspecified personality disorder F60.9 [facility] [id number] [place] [address] 86593- 6747 Sep, Unspecified episodic mood disorder F39 ; Anxiety disorder, unspecified F41.9 and Unspecified personality disorder F60.9 [facility] [id number] [place] [address] 91345- 9071 Sep, Encounter for immunization Z23 [facility] [id number] [place] [address] 90287- 2794 Sep, Edema of left lower extremity R60.0 [facility] [id number] [place] [address] 63219- 1290 Aug, Unspecified episodic mood disorder F39 ; Anxiety disorder, unspecified F41.9 and Unspecified personality disorder F60.9 [facility] [id number] [place] [address] 69995- 8084 Aug, [facility] [id number] [place] [address] 33842- 2578 Aug, Edema of left lower extremity R60.0 [facility] [id number] [place] [address] 63817- 1305 Aug, [facility] [id number] [place] [address] 11018- 2774 Aug, Unspecified episodic mood disorder F39 ; Anxiety disorder, unspecified F41.9 and Unspecified personality disorder F60.9 [facility] [address] [place] [address] 85907- 8579 Jul, Unspecified episodic mood disorder 296.90 ; Anxiety disorder , unspecified 300.00 and Unspecified personality disorder 301.9 [facility] [address], [place] [address]- 0918 Jul, Unspecified episodic mood disorder 296.90 ; Anxiety disorder , unspecified 300.00 and Unspecified personality disorder 301.9 [facility] [id number] [address]- 9971 Jul, [facility] [id number] [place] [address] 23688- 0263 Jun, Unspecified episodic mood disorder 296.90 ; Anxiety disorder , unspecified 300.00 and Unspecified personality disorder 301.9 [facility] [id number] [place] [address] 21916- 8243 May, Unspecified episodic mood disorder 296.90 ; Anxiety disorder , unspecified 300.00 and Unspecified personality disorder 301.9 [facility] [id number] [place] [address] 64872- 2763 May, Anxiety disorder, unspecified 300.00 [facility] [id number] [place] [address] 79976- 1456 May, Anxiety disorder, unspecified 300.00 and Edema 782.3 [facility] [address] [place] [address] 46722- 2180 May, Unspecified episodic mood disorder 296.90 ; Anxiety disorder , unspecified 300.00 and Unspecified personality disorder 301.9 [facility] [address], [place] [address]- 0893 Apr, [facility] [id number] [place] [address] 63019- 3960 Apr, Unspecified episodic mood disorder 296.90 ; Anxiety disorder , unspecified 300.00 and Personality disorder, unspecified 301.9 [facility] [address], [place] [address]- 1218 Apr, Unspecified episodic mood disorder 296.90 ; Anxiety disorder , unspecified 300.00 and Unspecified personality disorder 301.9 [facility] [id number] 4732 March, [facility] [address], [place] [address]- 1166 March, Unspecified episodic mood disorder 296.90 ; Anxiety disorder , unspecified 300.00 and Unspecified personality disorder 301.9 [facility] [address], [place] [address]- 8915 March, Unspecified episodic mood disorder 296.90 ; Anxiety disorder 300.00 and Unspecified personality disorder 301.9 [facility] [address], [place] [address]- 2707 March, [facility] [address], [place] [address]- 9211 March, [facility] [address], [place] [address]- 9947 Feb, [facility] [address], [place] [address]- 2308 Feb, [facility] [address], [place] [address]- 5889 Feb, [facility] [address], [place] [address]- 4124 Jan, [facility] [address], [place] [address]- 8905 Jan, [facility] [id number] [address]- 4507 Jan, [facility] [address], [place] [address]- 0366 Jan, [facility] [id number] [address]- 2546 Jan, [facility] [id number] [address]- 3325 Jan, [facility] [place] [facility] [address] [id number] [place] [id number] Jan, [facility] [place] [facility] [address] [id number] [place] [address]- 4061 Jan, 2014 [facility] [place] [facility] [address] [id number] [place] [address]- 1711 Jan, 2014 [facility] [place] [facility] [address] [id number] [place] [address]- 8081 Jan, 2014 [facility] [place] [facility] [address] [id number] [place] [address]- 3573 Jan, 2014 [facility] [place] [facility] [address] [id number] [place] [address]- 3316 Jan, 2014 [facility] [place] [facility] [address] [id number] [place] [address]- 9406 Jan, 2014 [facility] [place] [facility] [address] [id number], [place] [address]- 4432 Jan, 2014 [facility] [place] [facility] [address] [id number] [place] [address]- 5164 Jan, [facility] [place] [facility] [address] [id number], [place] [address]- 5140 Jan, [facility] [place] [facility] [address] [id number], [place] [address]- 9803 Dec, 2014 [facility] [place] [facility] [address] [id number], [place] [address]- 2318 Dec, 2014 [facility] [place] [facility] [address] [id number] [place] 8676 Dec, [facility] [place] [facility] [address] [id number], [place] [address]- 8147 Dec, 2014 [facility] [place] [facility] [address] [id number] [place] [address]- 4084 Nov, [facility] [place] [facility] [address] [id number] [place] [address]- 1903 Nov, [facility] [place] [facility] [address] [id number] [place] [address]- 4332 Nov, [facility] [place] [facility] [address] [id number] [place] [address]- 7997 Nov, [facility] [address] [id number] [place] [address]- 3025 15 Oct, 2014 [facility] [place] [facility] [address] [id number] [place] [address]- 3079 Oct, [facility] [place] [facility] [address] [id number] [place] [address]- 9849 Oct, [facility] [place] [facility] [address] [id number] [place] [address]- 8508 Oct, [facility] [place] [facility] [address] [id number] [place] [address]- 3809 Oct, [facility] [place] [facility] [address] [id number] [place] [address] Oct, [facility] [place] [facility] [address] [id number] [place] [address] Oct, [facility] [place] [facility] [address] [id number] [place] [address] Oct, [facility] [place] [facility] [address] [id number] [place] [address] Oct, [facility] [place] [facility] [address] [id number] [place] [address] Oct, [facility] [place] [facility] [address] [id number] [place] [address] Oct, [facility] [place] [facility] [address] [id number] [place] [address] Oct, [facility] [place] [facility] [address] [id number] [place] [address] Oct, [facility] [place] [facility] [address] [id number] [place] [address] Oct, [facility] [place] [facility] [address] [id number] [place] [address] Oct, [facility] [place] [facility] [address] [id number] [place] [address] Oct, [facility] [place] [facility] [address] [id number] [place] [address] Sep, [facility] [place] [facility] [address] [id number] [place] [address] Sep, [facility] [place] [facility] [address] [id number] [place] [address] Sep, [facility] [place] [facility] [address] [id number] [place] [address] Sep, [facility] [place] [facility] [address] [id number] [place] [address] Sep, [facility] [place] [facility] [address] [id number] [place] [address] Sep, [facility] [place] [facility] [address] [id number] [place] [address] Sep, [facility] [place] [facility] [address] [id number] [place] [address] Sep, [facility] [place] [facility] [address] [id number] [place] [address] Sep, [facility] [place] [facility] [address] [id number] [place] [address] 6[address] Sep, [facility] [place] [facility] [address] [id number] [place] [address] 0[address] Aug, [facility] [place] [facility] [address] [id number] [place] [address] 3257 Aug, [facility] [place] [facility] [address] [id number] [place] [address] 5453 14 Aug, 2014 [facility] [place] [facility] [address] [id number] [place] [address] 7[address] 14 Aug, 2014 [facility] [place] [facility] [address] [id number] [place] [address] 7611 Aug, [facility] [place] [facility] [address] [id number] [place] [address] 3302 Aug, [facility] [place] [facility] [address] [id number] [place] [address] 9097 Aug, [facility] [place] [facility] [address] [id number] [place] [address] 5914 Aug, [facility] [place] [facility] [address] [id number] [place] [address] 6644 Jul, [facility] [place] [facility] [address] [id number] [place] [address] 9993 Jul, [facility] [place] [facility] [address] [id number] [place] [address] 6977 Jul, [facility] [place] [facility] [address] [id number] [place] [address]- 5252 05 Jul, 2014 [facility] [place] [facility] [address] [id number] [place] [address]- 9004 Jul, [facility] [place] [facility] [address] [id number] [place] [address]- 0482 Jul, [facility] [place] [facility] [address] [id number] [place] [address]- 8116 Jun, [facility] [place] [facility] [address] [id number] [place] [address]- 0506 Jun, [facility] [place] [facility] [address] [id number] [place] [address]- 7259 May, [facility] [place] [facility] [address] [id number] [place] [address]- 1228 May, [facility] [place] [facility] [address] [id number] [place] [address] 8956 May, [facility] [address] [id number] [place] [address]- 6195 May, [facility] [place] [facility] [address] [id number] [place] [address]- 4005 May, [facility] [address] [id number] [place] [address]- 8829 May, [facility] [place] [facility] [address] [id number] [place] [address]- 4117 May, [facility] [place] [facility] [address] [id number] [place] [address]- 6314 May, [facility] [place] [facility] [address] [id number] [place] [address]- 3993 Apr, [facility] [place] [facility] [address] [id number] [place] [address]- 8244 Apr, [facility] [address] [id number] [place] [address] 4134 March, [facility] [place] [facility] [address] [id number] [place] [address] 1802 March, [facility] [address] [id number] [place] [address]- 8821 Feb, [facility] [place] [facility] [address] [id number] [place] [address]- 1045 Feb, [facility] [place] [facility] [address] [id number] [place] [address]- 3783 Feb, [facility] [place] [facility] [address] [id number] [place] [address]- 5780 Feb, [facility] [place] [facility] [address] [id number] [place] [address]- 7999 Feb, [facility] [place] [facility] [address] [id number] [place] [address]- 1241 Feb, [facility] [place] [facility] [address] [id number] [place] [address]- 0168 Feb, [facility] [place] [facility] [address] [id number] [place] [address]- 7631 Feb, [facility] [place] [facility] [address] [id number] [place] [address]- 5274 Feb, [facility] [place] [facility] [address] [id number] [place] [address]- 8957 Feb, [facility] [place] [facility] [address] [id number] [place] [address]- 5663 Jan, [facility] [place] [facility] [address] [id number] [place] [address]- 0731 Jan, [facility] [place] [facility] [address] [id number] [place] [address]- 4148 Jan, [facility] [place] [facility] [address] [id number] [place] [address]- 3560 Jan, [facility] [place] [facility] [address] [id number] [place] [address]- 4914 Jan, [facility] [place] [facility] [address] [id number] [place] [address]- 0237 Dec, [facility] [place] [facility] [address] [id number] [place] [address]- 5333 Dec, [facility] [place] [facility] [address] [id number] [place] [address]- 7194 Dec, [facility] [place] [facility] [address] [id number] [place] [address]- 4546 Dec, [facility] [place] [facility] [address] [id number] [place] [address]- 5352 Dec, [facility] [place] [facility] [address] [id number] [place] [address]- 5280 Dec, [facility] [place] [facility] [address] [id number] [place] [address]- 9015 Nov, [facility] [address] [id number] [place] [address]- 3207 Nov, [facility] [address] [id number] [place] [address]- 9030 Nov, [facility] [address] [id number] [place] [address]- 0382 Nov, [facility] [address] [id number] [place] [address]- 2522 Nov, [facility] [address] [id number] [place] [address]- 7393 Nov, [facility] [address] [id number] [place] [address]- 4308 Nov, [facility] [address] [id number] [place] [address]- 5675 Nov, [facility] [address] [id number] [place] [address]- 6956 Oct, [facility] [address] [id number] [place] [address]- 7042 Oct, [facility] [address] [id number] [place] [address]- 7915 Oct, [facility] [address] [id number] [place] [address]- 5895 Oct, [facility] [address] [id number] [place] [address]- 3445 Oct, [facility] [address] [id number] [place] [address]- 2123 Oct, [facility] [address] [id number] [place] [address]- 2623 Oct, [facility] [address] [id number] [place] [address]- 3431 Oct, [facility] [place] [facility] [address] [id number] [place] [address]- 4853 Sep, [facility] [place] [facility] [address] [id number] [place] [address] Sep, [facility] [place] [facility] [address] [id number] [place] [address]- 1496 Sep, [facility] [place] [facility] [address] [id number] [place] [address]- 8799 Sep, [facility] [place] [facility] [address] [id number] [place] [address]- 8828 Sep, [facility] [place] [facility] [address] [id number] [place] [address]- 1144 Sep, [facility] [place] [facility] [address] [id number] [place] [address]- 5872 Sep, [facility] [place] [facility] [address] [id number] [place] [address]- 2414 Sep, [facility] [place] [facility] [address] [id number] [place] [address]- 8874 Aug, [facility] [place] [facility] [address] [id number] [place] [address]- 5182 Aug, [facility] [place] [facility] [address] [id number] [place] [address]- 1728 Aug, [facility] [place] [facility] [address] [id number], [place] [address]- 6126 Jul, [facility] [place] [facility] [address] [id number] [place] [address]- 8181 Jun, [facility] [place] [facility] [address] [id number] [place] [address]- 2913 Jun, [facility] [place] [facility] [address] [id number] [place] [address]- 3446 Jun, [facility] [place] [facility] [address] [id number], [place] [address]- 5985 Jun, [facility] [address] [id number] [place] [address]- 0635 Jun, [facility] [place] [facility] [address] [id number] [place] [address]- 1450 May, [facility] [address] [id number] [place] [address]- 0579 May, [facility] [address] [id number] [place] [address]- 5584 Apr, [facility] [address] [id number] [place] [address]- 5865 Apr, [facility] [address] [id number] [place] [address]- 4271 March, [facility] [address] [id number] [place] [address]- 7297 March, [facility] [address] [id number] [place] [address]- 8693 March, [facility] [address] [id number] [place] [address]- 7162 March, [facility] [address] [id number] [place] [address]- 3999 March, [facility] [address] [id number] [place] [address]- 9337 Feb, [facility] [place] [facility] [address] [id number] [place] [address]- 6000 Feb, [facility] [place] [facility] [address] [id number] [place] [address]- 0191 Feb, [facility] [place] [facility] [address] [id number] [place] [address]- 3381 Jan, [facility] [place] [facility] [address] [id number] [place] [address]- 9136 Dec, [facility] [place] [facility] [address] [id number] [place] [address]- 2661 27 Dec, 2012 [facility] [address] [id number] [place] [address]- 2186 18 Dec, 2012 [facility] [place] [facility] [address] [id number] [place] [address]- 2546 Dec, [facility] [place] [facility] [address] [id number] [place] [address]- 9115 Nov, [facility] [place] [facility] [address] [id number] [place] [address]- 4431 Nov, [facility] [place] [facility] [address] [id number] [place] [address]- 5541 Nov, [facility] [address] [id number] [place] [address]- 3707 Nov, [facility] [address] [id number] [place] [address]- 7448 Oct, [facility] [address] [id number] [place] [address]- 2018 Oct, [facility] [address] [id number] [place] [address]- 4161 Oct, [facility] [place] [facility] [address] [id number] [place] [address]- 8797 Oct, [facility] [place] [facility] [address] [id number] [place] [address]- 4266 14 Sep, 2012 [facility] [place] [facility] [address] [id number] [place] [address]- 1953 14 Sep, 2012 [facility] [place] [facility] [address] [id number] [place] [address]- 3123 13 Sep, 2012 [facility] [place] [facility] [address] [id number] [place] [address]- 5169 13 Sep, 2012 [facility] [place] [facility] [address] [id number] [place] [address]- 9223 Sep, [facility] [place] [facility] [address] [id number] [place] [address] 2546 Sep, [facility] [place] [facility] [address] [id number] [place] [address]- 2546 Aug, [facility] [place] [facility] [address] [id number] [place] [address]- 2546 Aug, [facility] [place] [facility] [address] [id number] [place] [address]- 2546 Aug, [facility] [place] [facility] [address] [id number] [place] [address] 2546 Jul, [facility] [place] [facility] [address] [id number] [place] [address] 2546 Jul, [facility] [place] [facility] [address] [id number] [place] [address]- 2546 Jun, [facility] [place] [facility] [address] [id number] [place] [address]- 7936 May, [facility] [place] [facility] [address] [id number] [place] [address]- 5957 May, [facility] [place] [facility] [address] [id number] [place] [address] 2546 Apr, [facility] [place] [facility] [address] [id number], [place] [address]- 2546 Apr, [facility] [place] [facility] [address] [id number], [place] [address]- 2546 March, [facility] [place] [facility] [address] [id number] [place] [address]- 2546 March, [facility] [place] [facility] [address] [id number] [place] [address]- 2546 Feb, [facility] [place] [facility] [address] [id number] [place] [address]- 2546 Feb, [facility] [place] [facility] [address] [id number] [place] [address]- 1729 09 Feb, 2012 [facility] [place] [facility] [address] [id number] [place] [address]- 0304 Feb, [facility] [place] [facility] [address] [id number] [place] [address]- 6756 15 Jan, 2012 [facility] [place] [facility] [address] [id number] [place] [address]- 3896 Jan, [facility] [place] [facility] [address] [id number] [place] [address]- 0874 29 Dec, 2011 [facility] [place] [facility] [address] [id number] [place] [address]- 9906 28 Dec, 2011 [facility] [place] [facility] [address] [facility] [id number] [place] [address]- 2796 26 Dec, 2011 [facility] [place] [facility] [address] [facility] [id number] [place] [address]- 1058 23 Dec, 2011 [facility] [place] [facility] [address] [id number] [place] [address]- 8302 Dec, [facility] [place] [facility] [address] [facility] [id number] [place] [address]- 0451 15 Dec, 2011 [facility] [place] [facility] [address] [facility] [id number] [place] [address]- 1362 Dec, [facility] [place] [facility] [address] [facility] [id number] [place] [address]- 2557 Dec, [facility] [place] [facility] [address] [facility] [id number] [place] [address]- 6593 08 Dec, 2011 [facility] [place] [facility] [address] [facility] [id number] [place] [address]- 5326 07 Dec, 2011 [facility] [place] [facility] [address] [facility] [id number] [place] [address]- 9260 02 Dec, 2011 [facility] [place] [facility] [address] [facility] [id number], [place] [address]- 5326 Dec, [facility] [address] [id number] [place] [address]- 1852 Dec, [facility] [place] [facility] [address] [id number] [place] [address]- 8091 Nov, [facility] [address] [id number] [place] [address]- 5262 Nov, [facility] [place] [facility] [address] [id number] [place] [address]- 1130 Nov, [facility] [address] [id number] [place] [address]- 3149 Nov, [facility] [address] [id number] [place] [address]- 6701 Nov, [facility] [address] [facility] [id number] [place] [address]- 3762 Nov, [facility] [place] [facility] [address] [id number] [place] [address]- 1546 Oct, [facility] [address] [id number] [place] [address]- 8779 Oct, [facility] [place] [facility] [address] [facility] [id number] [place] [address]- 0369 Sep, [facility] [place] [facility] [address] [id number] [place] [address]- 4847 Sep, [facility] [place] [facility] [address] [id number] [place] [address]- 6708 Sep, [facility] [place] [facility] [address] [id number] [place] [address]- 4614 Sep, [facility] [place] [facility] [address] [facility] [id number] [place] [address]- 5075 Sep, [facility] [place] [facility] [address] [facility] [id number] [place] [address]- 0035 March, [facility] [place] [facility] [address] [facility] [id number], [place] [address]- 8137 Oct, [facility] [address] [facility] [id number], [place] [address]- 8969 Oct, [facility] [address] [facility] [id number], [place] [address]- 3369 Oct, [facility] [address] [facility] [id number], [place] [address]- 7416 Sep, [facility] [address] [facility] [id number], [place] [address]- 8349 Sep, [facility] [address] [facility] [id number], [place] [address]- 3877 Sep, [facility] [address] [facility] [id number], [place] [address]- 6419 Sep, [facility] [id number], [place] [address]- 7666 Aug, [facility] [address] [id number], [place] [address]- 3822 Oct, [facility] [id number], [place] [address]- 1574 Oct, [facility] [address] [id number], [place] [address]- 5415 May, IMMUNIZATIONS No Known Immunizations SOCIAL HISTORY Never Assessed REASON FOR VISIT f/u PLAN OF CARE Activity Details Follow Up 3 Weeks Reason: F/U VITAL SIGNS MEDICATIONS Unknown Medications RESULTS No Results PROCEDURES Procedure Date Ordered Result Body Site Psychotherapy, patient &/family, 45 minutes, established patient Oct 03, 2017 INSTRUCTIONS MEDICATIONS ADMINISTERED No Known Medications MEDICAL (GENERAL) HISTORY Type Description Date Medical History hypertension Medical History panic attacks Surgical History cholecystectomy 2009 Hospitalization History surgery
--- OUTSIDE RECORDS SUMMARY | 2018-12-11 10:29 | XMS REPORT ---
Author Author SANJEEV PHELPS [facility] eClinicalWorks Address Unknown Phone Unavailable Care Team Providers Care Medical Assistant Instructor Name Role Phone SANJEEV PHELPS Unavailable Allergies [...] patient &/family, 45 minutes, established patient CPT-4 68234 Oct 19, 2015 Results No Known Results Summary Purpose eClinicalWorks Submission
--- OUTSIDE RECORDS SUMMARY | 2018-12-11 10:30 | XMS REPORT ---
Author Author [facility] Address [address] [place] [address] Care Team Providers Care It Support Specialist Name Role Phone THU LEIDA Unavailable PROBLEMS Type Condition ICD9-CM Code [id number] Code Onset Dates Condition Status SNOMED Code Problem Screening for malignant neoplasm of the cervix V76.2 Active 050311211 Problem Need for prophylactic vaccination and inoculation, Influenza V04.81 Active 269351414 Problem Unspecified breast screening V76.10 Active 814663271 Problem Urge incontinence 788.31 Active 50651727 Problem Candidiasis of vulva and vagina 112.1 Active 43679419 Problem Unspecified episodic mood disorder F39 Active 527288913 Problem Anxiety disorder, unspecified F41.9 Active 203696483 Problem Screening examination for pulmonary tuberculosis V74.1 Active 569856906 Problem PPV23 (PNEUMOVAX) DX V03.82 Active Problem Unspecified personality disorder F60.9 Active 33603346 Problem Edema 782.3 Active 42980837 ALLERGIES Unknown Allergies SOCIAL HISTORY No smoking Hx information available PLAN OF CARE VITAL SIGNS MEDICATIONS Unknown Medications RESULTS No Results PROCEDURES No Known procedures IMMUNIZATIONS No Known Immunizations
--- OUTSIDE RECORDS SUMMARY | 2018-12-11 10:30 | XMS REPORT ---
Author Author LEIDA ANDINO Organization [facility] Address [address] [place] [address] Care Team Providers Care Waste Elimination Name Role Phone LEIDA ANDINO Unavailable PROBLEMS Type Condition ICD9-CM Code [id number] Code Onset Dates Condition Status SNOMED Code Problem Stress incontinence of urine N39.3 Active 36306254 Problem Anxiety F41.9 Active 42434131 Problem Anxiety disorder, unspecified F41.9 Active 360220132 Problem Unspecified episodic mood disorder F39 Active 677028851 Problem Unspecified personality disorder F60.9 Active [id number] ALLERGIES No Information ENCOUNTERS Encounter Location Date Diagnosis [place] [address] [address] March, [place] [address] [place] [id number] [place] [address] 28567- 1303 March, Anxiety disorder, unspecified F41.9 [place] [address] [place] [id number] [place] [address] 31245- 3016 Feb, Unspecified episodic mood disorder F39 ; Anxiety disorder, unspecified F41.9 and Unspecified personality disorder F60.9 [place] [address] [place] [id number] [place] [address] 92681- 5102 Feb, Unspecified episodic mood disorder F39 ; Anxiety disorder, unspecified F41.9 and Unspecified personality disorder F60.9 [place] [address] [place] [id number] [place] [address] 78849- 7434 Feb, Anxiety disorder, unspecified F41.9 [place] [address] [place] [id number] [place] [address] 05613- 2286 Jan, Unspecified episodic mood disorder F39 ; Anxiety disorder, unspecified F41.9 and Unspecified personality disorder F60.9 [facility] [address], [place] [address] 6388 Jan, Anxiety F41.9 [facility] [address] [place] [id number] [place] [address] 79416- 3476 Jan, Anxiety disorder, unspecified F41.9 [facility] [id number] [place] [address] 44815- 0216 Dec, Unspecified episodic mood disorder F39 ; Anxiety disorder, unspecified F41.9 and Unspecified personality disorder F60.9 [facility] [id number] [place] [address] 19902- 4051 Dec, Anxiety F41.9 [facility] [address] [place] [id number] [place] [address] 07225- 3190 Dec, Anxiety disorder, unspecified F41.9 [facility] [address] [place] [id number] [place] [address] 38114- 3904 Dec, Unspecified episodic mood disorder F39 ; Anxiety disorder, unspecified F41.9 and Unspecified personality disorder F60.9 [facility] [id number] [place] [address] 64227- 8152 Nov, [facility] [id number] [place] [address] 76188- 8505 Nov, [facility] [id number] [place] [address] 80835- 3528 Nov, Unspecified episodic mood disorder F39 ; Anxiety disorder, unspecified F41.9 and Unspecified personality disorder F60.9 [facility] [address] [place] [address] 76709- 1267 Nov, Anxiety disorder, unspecified F41.9 [facility] [id number] [place] [address] 78720- 6628 Oct, Unspecified episodic mood disorder F39 ; Anxiety disorder, unspecified F41.9 and Unspecified personality disorder F60.9 [place] [address], [place] [address]- 6889 Oct, Vaginal yeast infection B37.3 [facility] [address] [place] [id number] [place] [address] 45718- 3191 Oct, [place] [address] [place] [id number] [place] [address] 44331- 6356 Oct, Anxiety disorder, unspecified F41.9 [place] [address] [place] [id number] [place] [address] 40552- 8181 Oct, Routine gynecological examination Z01.419 ; Screening for breast cancer Z12.31 and Vaginal yeast infection B37.3 [place] [address] [place] [id number] [place] [address] 38181- 5586 Sep, Unspecified episodic mood disorder F39 ; Anxiety disorder, unspecified F41.9 and Unspecified personality disorder F60.9 [place] [address] [place] [id number] [place] [address] 96101- 6341 Sep, [place] [address] [place] [id number] [place] [address] 15595- 1783 Sep, Anxiety disorder, unspecified F41.9 [place] [address] [place] [id number] [place] [address] 98895- 1600 Sep, Bronchitis J40 and Stress incontinence of urine N39.3 [place] [address] [place] [id number] [place] [address] 21166- 5267 Sep, Stress incontinence of urine N39.3 ; Bronchitis J40 and Anxiety F41.9 [place] [id number] [place] [address] 28603- 8467 Sep, [place] [address] [place] [id number] [place] [address] 31185- 1163 Sep, Unspecified episodic mood disorder F39 ; Anxiety disorder, unspecified F41.9 and Unspecified personality disorder F60.9 [place] [address] [place] [id number] [place] [address] 04888- 4101 Aug, Anxiety F41.9 ; Stress incontinence of urine N39.3 and Encounter for immunization Z23 [facility] [address] [place] [id number] [place] [address] 65128- 4810 Aug, Anxiety disorder, unspecified F41.9 [facility] [address] [place] [id number] [place] [address] 19575- 8519 Jul, Unspecified episodic mood disorder F39 ; Anxiety disorder, unspecified F41.9 and Unspecified personality disorder F60.9 [facility] [address] [place] [id number] [place] [address] 86908- 2313 Jul, [place] [address] [place] [id number] [place] [address] 59378- 9761 Jul, Unspecified episodic mood disorder F39 ; Anxiety disorder, unspecified F41.9 and Unspecified personality disorder F60.9 [place] [address] [place] [id number] [place] [address] 39366- 4406 Jul, Anxiety disorder, unspecified F41.9 [facility] [address] [place] [id number] [place] [address] 87136- 9503 Jun, Unspecified episodic mood disorder F39 ; Anxiety disorder, unspecified F41.9 and Unspecified personality disorder F60.9 [place] [address] [place] [address] 82674- 5571 Jun, Anxiety disorder, unspecified F41.9 [facility] [address] [place] [id number] [place] [address] 10229- 7432 Jun, Unspecified episodic mood disorder F39 ; Anxiety disorder, unspecified F41.9 and Unspecified personality disorder F60.9 [facility] [address] [place] [id number] [place] [address] 63997- 7469 Jun, [facility] [id number] [place] [address] 52421- 7031 May, Anxiety disorder, unspecified F41.9 [facility] [address] [place] [id number] [address]- 7796 May, Unspecified episodic mood disorder F39 ; Anxiety disorder, unspecified F41.9 and Unspecified personality disorder F60.9 [facility] [address], [place] [address]- 2472 Apr, Anxiety disorder, unspecified F41.9 [facility] [address] [place] [id number] [place] [address] 28949- 8021 March, Unspecified episodic mood disorder F39 ; Anxiety disorder, unspecified F41.9 and Unspecified personality disorder F60.9 [place] [address] [place] [id number] [place] [address] 36991- 6473 March, Bronchitis J40 [facility] [address] [place] [id number] [place] [address] 99782- 4750 March, Unspecified episodic mood disorder F39 ; Anxiety disorder, unspecified F41.9 and Unspecified personality disorder F60.9 [facility] [address] [place] [address] 70331- 9969 Feb, [facility] [address] [place] [id number] [place] [address] 50250- 8225 Feb, Unspecified episodic mood disorder F39 ; Anxiety disorder, unspecified F41.9 and Unspecified personality disorder F60.9 [facility] [address] [place] [address] 40388- 6223 Feb, Bronchitis J40 [facility] [address] [place] [address] 33231- 1201 Feb, Unspecified episodic mood disorder F39 ; Anxiety disorder, unspecified F41.9 and Unspecified personality disorder F60.9 [facility] [address] [place] [address] 32451- 9746 Jan, Unspecified episodic mood disorder F39 ; Anxiety disorder, unspecified F41.9 and Unspecified personality disorder F60.9 [facility] [address] [place] [address] 51010- 1162 Jan, Bronchitis J40 [facility] [address], [place] [address]- 4621 Jan, Unspecified episodic mood disorder F39 ; Anxiety disorder, unspecified F41.9 and Unspecified personality disorder F60.9 [facility] [address], [place] [address]- 7895 Dec, Anxiety F41.9 [facility] [id number] [place] [address] 84548- 0504 Dec, Unspecified episodic mood disorder F39 ; Anxiety disorder, unspecified F41.9 and Unspecified personality disorder F60.9 [address] [id number] Dec, [facility] [address], [place] [address]- 8109 Dec, Unspecified episodic mood disorder F39 ; Anxiety disorder, unspecified F41.9 and Unspecified personality disorder F60.9 [place] [address], [place] [address]- 9576 Nov, [facility] [address] [place] [address] 15242- 1523 Oct, Unspecified episodic mood disorder F39 ; Anxiety disorder, unspecified F41.9 and Unspecified personality disorder F60.9 [facility] [address], [place] [address]- 1189 Oct, [facility] [address] [place] [id number] [address] -6895 Oct, Acute upper respiratory infection, unspecified J06.9 ; Other viral agents as the cause of diseases classified elsewhere B97.89 and Cough R05 [facility] [address] [place] [address] [id number] [address]- 9123 Aug, Unspecified episodic mood disorder F39 ; Anxiety disorder, unspecified F41.9 and Unspecified personality disorder F60.9 [facility] [address] [facility] [id number] [address]- 7044 Aug, [facility] [address], [place] [address]- 9885 Aug, [facility] [address] [facility] [id number], [place] [address]- 9948 Aug, [facility] [address] [place] [id number] [place] [address] 16039- 5232 Aug, Visit for TB skin test Z11.1 [facility] [address] [place] [id number] [address]- 5355 Jul, [facility] [address] [place] [id number] [place] [address] 38039- 6066 Jul, [facility] [address] [place] [address] 82584- 9169 Jul, [facility] [address], [place] [address]- 5371 Jul, [facility] [address] [place] [id number] [place] [address] 94492- 4710 Jul, [facility] [address], [place] [address]- 2479 Jul, Unspecified episodic mood disorder F39 ; Anxiety disorder, unspecified F41.9 and Unspecified personality disorder F60.9 [facility] [address], [place] [address]- 5649 Jun, [facility] [address] [facility] [id number] [address]- 5036 Jun, Unspecified episodic mood disorder F39 ; Anxiety disorder, unspecified F41.9 and Unspecified personality disorder F60.9 [facility] [address] [facility] [id number], [place] [address]- 7204 Jun, [facility] [address], [place] [address]- 3586 May, Unspecified episodic mood disorder F39 ; Anxiety disorder, unspecified F41.9 and Unspecified personality disorder F60.9 [facility] [address], [place] [address]- 6619 May, [facility] [address] [place] [address] 56759- 5462 May, [facility] [address] [place] [id number] [place] [address] 93115- 0003 May, Edema, unspecified R60.9 [facility] [address] [place] [address] 56674- 7138 Apr, [facility] [address] [place] [id number] [place] [address] 26093- 4354 Apr, Unspecified episodic mood disorder F39 ; Anxiety disorder, unspecified F41.9 and Unspecified personality disorder F60.9 [facility] [address] [place] [address] 75687- 5446 Apr, Anxiety F41.9 [facility] [address] [place] [address] 07128- 1399 March, Unspecified episodic mood disorder F39 ; Anxiety disorder, unspecified F41.9 and Unspecified personality disorder F60.9 [facility] [address], [place] [address]- 5143 March, Unspecified episodic mood disorder F39 ; Anxiety disorder, unspecified F41.9 and Unspecified personality disorder F60.9 [facility] [address], [place] [address]- 5977 Feb, Anxiety F41.9 [facility] [address] [place] [address] 60165- 3797 Feb, Unspecified episodic mood disorder F39 ; Anxiety disorder, unspecified F41.9 and Unspecified personality disorder F60.9 [facility] [address] [place] [address] 78146- 1272 Jan, Unspecified episodic mood disorder F39 ; Anxiety disorder, unspecified F41.9 and Unspecified personality disorder F60.9 [facility] [address] [place] [address] 38015- 6885 Jan, Unspecified episodic mood disorder F39 ; Anxiety disorder, unspecified F41.9 and Unspecified personality disorder F60.9 [facility] [address] [place] [id number] [place] [address] 74143- 6928 Jan, Edema, unspecified R60.9 [facility] [address] [place] [id number] [place] [address] 93399- 2177 Dec, [facility] [address] [place] [id number] [place] [address] 28650- 6508 Dec, [facility] [address] [place] [id number] [place] [address] 52265- 4556 Dec, [facility] [address] [place] [id number] [place] [address] 92462- 2028 Dec, Unspecified episodic mood disorder F39 ; Anxiety disorder, unspecified F41.9 and Unspecified personality disorder F60.9 [facility] [address] [place] [address] 77118- 6669 Nov, [facility] [address], [place] [address]- 7112 Nov, Unspecified episodic mood disorder F39 ; Anxiety disorder, unspecified F41.9 and Unspecified personality disorder F60.9 [facility] [address] [address]- 4182 Oct, Unspecified episodic mood disorder F39 ; Anxiety disorder, unspecified F41.9 and Unspecified personality disorder F60.9 [facility] [address], [place] [address]- 3602 Oct, Unspecified episodic mood disorder F39 ; Anxiety disorder, unspecified F41.9 and Unspecified personality disorder F60.9 [facility] [address] [place] [address] 98890- 7392 Sep, Unspecified episodic mood disorder F39 ; Anxiety disorder, unspecified F41.9 and Unspecified personality disorder F60.9 [facility] [address] [place] [id number] [place] [address] 35604- 4126 Sep, Encounter for immunization Z23 [facility] [address] 91925- 4843 Sep, Edema of left lower extremity R60.0 [facility] [address] [place] [id number] [place] [address] 98544- 1842 Aug, Unspecified episodic mood disorder F39 ; Anxiety disorder, unspecified F41.9 and Unspecified personality disorder F60.9 [facility] [address] [place] [id number] [place] [address] 68205- 8521 Aug, [facility] [address] [place] [id number] [place] [address] 17559- 0052 Aug, Edema of left lower extremity R60.0 [facility] [address] [place] [id number] [place] [address] 82924- 5701 Aug, [facility] [address] [place] [id number] [place] [address] 13831- 5685 Aug, Unspecified episodic mood disorder F39 ; Anxiety disorder, unspecified F41.9 and Unspecified personality disorder F60.9 [facility] [address] [place] [id number] [place] [address] 84130- 4732 Jul, Unspecified episodic mood disorder 296.90 ; Anxiety disorder , unspecified 300.00 and Unspecified personality disorder 301.9 [facility] [address] [place] [id number] [place] [address] 79184- 4247 Jul, Unspecified episodic mood disorder 296.90 ; Anxiety disorder , unspecified 300.00 and Unspecified personality disorder 301.9 [facility] [address] [place] [id number] [place] [address] 76814- 8832 Jul, [facility] [address], [place] [address]- 7404 Jun, Unspecified episodic mood disorder 296.90 ; Anxiety disorder , unspecified 300.00 and Unspecified personality disorder 301.9 [facility] [address], [place] [address]- 5200 May, Unspecified episodic mood disorder 296.90 ; Anxiety disorder , unspecified 300.00 and Unspecified personality disorder 301.9 [facility] [address], [place] [address]- 9262 May, Anxiety disorder, unspecified 300.00 [facility] [address] [place] [id number] [place] [address] 01414- 5809 May, Anxiety disorder, unspecified 300.00 and Edema 782.3 [facility] [address] [place] [id number] [place] [address] 35466- 8299 May, Unspecified episodic mood disorder 296.90 ; Anxiety disorder , unspecified 300.00 and Unspecified personality disorder 301.9 [facility] [address] [address]- 2050 Apr, [facility] [address] [place] [id number] [place] [address] 05931- 9352 Apr, Unspecified episodic mood disorder 296.90 ; Anxiety disorder , unspecified 300.00 and Personality disorder, unspecified 301.9 [facility] [address], [place] [address]- 0457 Apr, Unspecified episodic mood disorder 296.90 ; Anxiety disorder , unspecified 300.00 and Unspecified personality disorder 301.9 [facility] [address] [address]- 8345 March, [facility] [address] [place] [address] 96081- 7349 March, Unspecified episodic mood disorder 296.90 ; Anxiety disorder , unspecified 300.00 and Unspecified personality disorder 301.9 [facility] [address], [place] [address]- 9609 March, Unspecified episodic mood disorder 296.90 ; Anxiety disorder 300.00 and Unspecified personality disorder 301.9 [facility] [address] [place] [address]- 9607 March, [facility] [address], [place] [address]- 1824 March, [facility] [id number], [place] [address]- 3043 Feb, [facility] [address] [place] [address]- 0446 Feb, [facility] [address], [place] [address]- 1990 Feb, [facility] [address], [place] [address]- 3135 Jan, [facility] [address], [place] [address]- 8101 Jan, [facility] [address] 2503 Jan, [facility] [address], [place] [address]- 6097 Jan, [facility] [address], [place] [address]- 9028 Jan, [facility] [id number] [address]- 4678 Jan, [facility] [id number] [id number] Jan, [facility] [address], [place] [address]- 0223 Jan, [facility] [id number], [place] [address]- 6514 Jan, [facility] [place] [facility] [address] [id number] [place] [address]- 0279 Jan, 2014 [facility] [place] [facility] [address] [id number] [place] [address]- 5394 Jan, [facility] [place] [facility] [address] [id number] [place] [address]- 6522 Jan, 2014 [facility] [place] [facility] [address] [id number] [place] [address]- 6269 Jan, 2014 [facility] [place] [facility] [address] [id number] [place] [address]- 9591 Jan, 2014 [facility] [place] [facility] [address] [id number] [place] [address]- 4334 Jan, 2014 [facility] [place] [facility] [address] [facility] [id number] [place] [address]- 2114 Jan, [facility] [place] [facility] [address] [id number] [place] [address]- 7350 Dec, [facility] [place] [facility] [address] [id number] [place] [address]- 7758 Dec, [facility] [place] [facility] [address] [facility] [id number] [place] [address]- 0789 Dec, [facility] [place] [facility] [address] [facility] [id number] [place] [address]- 8286 Dec, [facility] [place] [facility] [address] [id number], [place] [address]- 5642 Nov, [facility] [place] [facility] [address] [id number] [place] [address]- 4788 Nov, [facility] [place] [facility] [address] [id number] [place] [address]- 8681 Nov, [facility] [place] [facility] [address] [id number], [place] [address]- 6185 Nov, [facility] [place] [facility] [address] [id number], [place] [address]- 7820 Oct, [facility] [place] [facility] [address] [id number] [place] [address]- 9287 Oct, [facility] [place] [facility] [address] [id number] [place] [address]- 8178 Oct, [facility] [place] [facility] [address] [id number] [place] [address]- 1586 Oct, [facility] [place] [facility] [address] [id number] [place] [address]- 6331 Oct, [facility] [place] [facility] [address] [id number] [place] [address] Oct, [facility] [place] [facility] [address] [id number] [place] [address] Oct, [facility] [place] [facility] [address] [id number] [place] [address] Oct, [facility] [place] [facility] [address] [id number] [place] [address] Oct, [facility] [place] [facility] [address] [id number] [place] [address] Oct, [facility] [place] [facility] [address] [id number] [place] [address] Oct, [facility] [place] [facility] [address] [id number] [place] [address] Oct, [facility] [place] [facility] [address] [id number] [place] [address] Oct, [facility] [place] [facility] [address] [id number] [place] [address] Oct, [facility] [place] [facility] [address] [id number] [place] [address] Oct, [facility] [place] [facility] [address] [id number] [place] [address] Oct, [facility] [place] [facility] [address] [id number] [place] [address] Sep, [facility] [place] [facility] [address] [id number] [place] [address] Sep, [facility] [place] [facility] [address] [id number] [place] [address] 5214 Sep, [facility] [place] [facility] [address] [id number] [place] [address] 0054 Sep, [facility] [place] [facility] [address] [id number] [place] [address] 4272 Sep, [facility] [place] [facility] [address] [id number] [place] [address] 3446 Sep, [facility] [place] [facility] [address] [id number] [place] [address] 4672 Sep, [facility] [place] [facility] [address] [id number] [place] [address] 3466 Sep, [facility] [place] [facility] [address] [id number] [place] [address] 1378 Sep, [facility] [place] [facility] [address] [id number] [place] [address] 6366 Sep, [facility] [place] [facility] [address] [id number] [place] [address] 8539 Aug, [facility] [place] [facility] [address] [id number] [place] [address]- 5436 30 Aug, 2014 [facility] [place] [facility] [address] [id number] [place] [address]- 3054 14 Aug, 2014 [facility] [place] [facility] [address] [id number] [place] [address]- 7954 14 Aug, 2014 [facility] [place] [facility] [address] [id number] [place] [address]- 2315 13 Aug, 2014 [facility] [place] [facility] [address] [id number] [place] [address]- 1115 Aug, [facility] [place] [facility] [address] [id number] [place] [address]- 1621 Aug, [facility] [place] [facility] [address] [id number] [place] [address]- 6091 Aug, [facility] [place] [facility] [address] [id number] [place] [address]- 8900 Jul, 2013 [facility] [place] [facility] [address] [id number] [place] [address] 2712 Jul, 2013 [facility] [place] [facility] [address] [id number] [place] [address]- 1118 Jul, 2013 [facility] [place] [facility] [address] [id number] [place] [address]- 3841 Jul, 2013 [facility] [place] [facility] [address] [id number] [place] [address]- 3316 Jul, 2013 [facility] [place] [facility] [address] [id number] [place] [address]- 2577 Jul, 2013 [facility] [place] [facility] [address] [id number] [place] [address]- 3174 Jun, [facility] [place] [facility] [address] [id number] [place] [address]- 7042 Jun, [facility] [place] [facility] [address] [id number] [place] [address]- 9761 May, [facility] [place] [facility] [address] [id number] [address] 74[address] May, [facility] [place] [facility] [address] [id number] [place] [address]- 8985 May, [facility] [place] [facility] [address] [id number] [place] [address]- 8062 May, [facility] [place] [facility] [address] [id number] [place] [address]- 4426 May, [facility] [place] [facility] [address] [id number] [address] 2898 May, [facility] [place] [facility] [address] [id number] [place] [address]- 6693 May, [facility] [place] [facility] [address] [id number] [place] [address]- 0699 May, [facility] [place] [facility] [address] [id number] [place] [address]- 7522 Apr, [facility] [place] [facility] [address] [id number] [place] [address]- 5024 Apr, [facility] [place] [facility] [address] [id number] [place] [address]- 4632 March, [facility] [place] [facility] [address] [id number] [place] [address]- 5484 March, [facility] [place] [facility] [address] [id number] [place] [address]- 0897 Feb, [facility] [place] [facility] [address] [id number] [place] [address]- 4568 Feb, [facility] [place] [facility] [address] [id number] [place] [address]- 0518 Feb, [facility] [place] [facility] [address] [id number] [place] [address]- 2075 Feb, [facility] [place] [facility] [address] [id number] [place] [address]- 5454 Feb, [facility] [place] [facility] [address] [id number] [place] [address]- 5829 Feb, [facility] [place] [facility] [address] [id number] [place] [address]- 2156 Feb, [facility] [place] [facility] [address] [id number] [place] [address]- 4170 Feb, [facility] [place] [facility] [address] [id number] [place] [address]- 5689 Feb, [facility] [place] [facility] [address] [id number] [place] [address]- 7160 Feb, [facility] [place] [facility] [address] [id number] [place] [address]- 5252 Jan, [facility] [place] [facility] [address] [id number] [place] [address]- 2069 Jan, [facility] [place] [facility] [address] [id number] [place] [address]- 5330 Jan, [facility] [place] [facility] [address] [id number] [place] [address]- 2495 Jan, [facility] [place] [facility] [address] [id number] [place] [address]- 0508 Jan, [facility] [place] [facility] [address] [id number] [place] [address]- 9986 Dec, [facility] [place] [facility] [address] [id number] [place] [address]- 0168 Dec, [facility] [place] [facility] [address] [id number] [place] [address]- 0107 Dec, [facility] [place] [facility] [address] [facility] [id number] [place] [address]- 4445 Dec, [facility] [place] [facility] [address] [facility] [id number] [place] [address]- 1391 Dec, [facility] [place] [facility] [address] [id number] [place] [address]- 3108 Dec, [facility] [place] [facility] [address] [id number] [place] [address]- 7659 Nov, [facility] [place] [facility] [address] [id number] [place] [address]- 2626 Nov, [facility] [place] [facility] [address] [id number] [place] [address]- 3839 Nov, [facility] [place] [facility] [address] [id number], [place] [address] 0780 Nov, [facility] [address] [id number] [place] [address]- 3955 Nov, [facility] [place] [facility] [address] [id number] [place] [address]- 4532 Nov, [facility] [place] [facility] [address] [id number] [place] [address]- 7523 Nov, [facility] [place] [facility] [address] [id number] [place] [address]- 6126 Nov, [facility] [place] [facility] [address] [id number] [place] [address]- 7170 Oct, [facility] [place] [facility] [address] [id number] [place] [address]- 3876 Oct, [facility] [place] [facility] [address] [id number] [place] [address]- 8607 Oct, [facility] [place] [facility] [address] [id number] [place] [address]- 4759 Oct, [facility] [place] [facility] [address] [id number] [place] [address]- 8250 Oct, [facility] [place] [facility] [address] [id number] [place] [address]- 7450 Oct, [facility] [place] [facility] [address] [id number] [place] [address]- 5469 Oct, [facility] [place] [facility] [address] [id number] [place] [address]- 8643 Oct, [facility] [place] [facility] [address] [id number] [place] [address]- 9351 Sep, [facility] [place] [facility] [address] [id number] [place] [address]- 3463 Sep, [facility] [place] [facility] [address] [id number] [place] [address]- 7614 14 Sep, 2013 [facility] [place] [facility] [address] [id number] [place] [address]- 1699 14 Sep, 2013 [facility] [place] [facility] [address] [id number] [place] [address]- 1080 07 Sep, 2013 [facility] [place] [facility] [address] [id number] [place] [address]- 7936 Sep, [facility] [place] [facility] [address] [id number] [place] [address]- 0902 04 Sep, 2013 [facility] [place] [facility] [address] [id number] [place] [address]- 3661 Sep, [facility] [place] [facility] [address] [id number] [place] [address]- 2033 Aug, [facility] [place] [facility] [address] [id number] [place] [address]- 6267 Aug, [facility] [place] [facility] [address] [id number] [place] [address]- 0637 Aug, [facility] [place] [facility] [address] [id number] [place] [address]- 0053 Jul, [facility] [place] [facility] [address] [id number] [place] [address]- 0318 Jun, [facility] [place] [facility] [address] [id number] [place] [address]- 7265 Jun, [facility] [place] [facility] [address] [id number] [place] [address]- 2394 Jun, [facility] [place] [facility] [address] [id number] [place] [address]- 5775 Jun, [facility] [place] [facility] [address] [id number] [place] [address]- 5675 Jun, [facility] [place] [facility] [address] [id number] [place] [address]- 2546 May, [facility] [place] [facility] [address] [id number] [place] [address]- 1259 May, [facility] [address] [id number] [place] [address]- 7299 Apr, [facility] [place] [facility] [address] [id number] [place] [address]- 6606 Apr, [facility] [address] [id number] [place] [address]- 8058 March, [facility] [place] [facility] [address] [id number] [place] [address]- 1710 March, [facility] [address] [id number] [place] [address]- 3299 March, [facility] [place] [facility] [address] [id number] [place] [address]- 7064 March, [facility] [address] [id number] [place] [address]- 4326 March, [facility] [address] [id number] [place] [address]- 3600 Feb, [facility] [address] [id number] [place] [address]- 6934 Feb, [facility] [place] [facility] [address] [id number] [place] [address]- 7418 Feb, [facility] [place] [facility] [address] [id number] [place] [address]- 0050 Jan, [facility] [place] [facility] [address] [id number] [place] [address]- 3021 Dec, [facility] [place] [facility] [address] [id number] [place] [address]- 2579 Dec, [facility] [place] [facility] [address] [id number] [place] [address]- 2506 Dec, [facility] [place] [facility] [address] [id number] [place] [address]- 9340 Dec, [facility] [place] [facility] [address] [id number] [place] [address]- 3356 28 Nov, 2012 [facility] [address] [id number] [place] [address]- 5531 24 Nov, 2012 [facility] [place] [facility] [address] [id number] [place] [address]- 6492 Nov, [facility] [address] [id number] [place] [address]- 0115 Nov, [facility] [place] [facility] [address] [id number] [place] [address]- 1592 Oct, [facility] [address] [id number] [place] [address]- 8018 Oct, [facility] [place] [facility] [address] [id number] [place] [address]- 2722 Oct, [facility] [address] [id number] [place] [address]- 4241 Oct, [facility] [address] [id number] [place] [address]- 6603 14 Sep, 2012 [facility] [place] [facility] [address] [id number] [place] [address]- 9206 14 Sep, 2012 [facility] [address] [facility] [id number] [place] [address]- 5287 Sep, [facility] [place] [facility] [address] [id number] [place] [address]- 9817 Sep, [facility] [place] [facility] [address] [id number] [place] [address]- 4075 Sep, [facility] [place] [facility] [address] [id number] [place] [address]- 9153 Sep, [facility] [place] [facility] [address] [id number] [place] [address]- 8193 Aug, [facility] [place] [facility] [address] [id number] [place] [address]- 8879 Aug, [facility] [place] [facility] [address] [id number] [place] [address]- 2546 Aug, [facility] [place] [facility] [address] [id number] [place] [address]- 2546 Jul, [facility] [place] [facility] [address] [id number] [place] [address]- 2546 Jul, [facility] [place] [facility] [address] [id number] [place] [address]- 2546 Jun, [facility] [address] [id number] [place] [address]- 2543 May, [facility] [place] [facility] [address] [id number] [place] [address]- 2546 May, [facility] [address] [id number] [place] [address]- 2546 Apr, [facility] [place] [facility] [address] [id number] [place] [address]- 2546 Apr, [facility] [address] [id number] [place] [address]- 8326 March, [facility] [address] [id number] [place] [address]- 0436 March, [facility] [place] [facility] [address] [id number] [place] [address]- 2546 Feb, [facility] [place] [facility] [address] [id number] [place] [address]- 2546 Feb, [facility] [place] [facility] [address] [id number] [place] [address]- 2546 Feb, [facility] [place] [facility] [address] [id number] [place] [address]- 2546 Feb, [facility] [place] [facility] [address] [id number] [place] [address]- 2546 Jan, [facility] [place] [facility] [address] [id number] [place] [address]- 5100 Jan, [facility] [address] [id number] [place] [address] 2546 29 Dec, 2011 [facility] [place] [facility] [address] [id number] [place] [address] 2546 28 Dec, 2011 [facility] [address] [id number] [place] [address]- 0126 26 Dec, 2011 [facility] [address] [id number] [place] [address] 2546 23 Dec, 2011 [facility] [address] [id number] [place] [address]- 9476 20 Dec, 2011 [facility] [place] [facility] [address] [id number] [place] [address]- 2546 15 Dec, 2011 [facility] [address] [id number] [place] [address]- 7056 10 Dec, 2011 [facility] [address] [id number] [place] [address] 2541 09 Dec, 2011 [facility] [address] [id number] [place] [address]- 7414 08 Dec, 2011 [facility] [address] [id number] [place] [address]- 5664 07 Dec, 2011 [facility] [place] [facility] [address] [id number] [place] [address] 2546 Dec, [facility] [place] [facility] [address] [id number] [place] [address] 2546 Dec, [facility] [place] [facility] [address] [id number] [place] [address]- 6206 Dec, [facility] [place] [facility] [address] [id number] [place] [address] 2546 Nov, [facility] [place] [facility] [address] [id number] [place] [address]- 0254 Nov, [facility] [address] [id number] [place] [address]- 1499 Nov, [facility] [place] [facility] [address] [id number] [place] [address]- 0106 Nov, [facility] [place] [facility] [address] [id number] [place] [address]- 0947 Nov, [facility] [place] [facility] [address] [id number] [place] [address]- 3871 Nov, [facility] [address] [id number] [place] [address]- 2297 Oct, [facility] [place] [facility] [address] [id number] [place] [address]- 3304 Oct, [facility] [place] [facility] [address] [id number] [place] [address]- 6863 Sep, [facility] [place] [facility] [address] [id number] [place] [address]- 4979 Sep, [facility] [place] [facility] [address] [id number] [place] [address]- 1914 Sep, [facility] [place] [facility] [address] [id number] [place] [address]- 6819 Sep, [facility] [place] [facility] [address] [id number] [place] [address]- 9655 Sep, [facility] [place] [facility] [address] [id number], [place] [address]- 2533 March, [facility] [place] [facility] [address] [id number] [place] [address]- 7280 Oct, [facility] [place] [facility] [address] [id number] [place] [address]- 0087 Oct, [facility] [place] [facility] [address] [id number] [place] 6898 Oct, [facility] [place] [facility] [address] [id number] [address] 2936 Sep, [facility] [address] [id number] [address]- 5578 Sep, [facility] [address] [id number] [address]- 8506 Sep, [facility] [id number], [place] [address]- 3690 Sep, [facility] [id number], [place] [address]- 7957 Aug, [facility] [id number], [place] [address]- 2210 Oct, [facility] [id number], [place] [address]- 5082 Oct, [facility] [address] [id number] [address]- 4581 May, IMMUNIZATIONS No Known Immunizations SOCIAL HISTORY Never Assessed REASON FOR VISIT Other PLAN OF CARE VITAL SIGNS MEDICATIONS Medication Instructions Dosage Frequency Start Date End Date Duration Status Bactrim DS 800-160 MG Orally Twice a day 1 tablet Sep,Sep 10 day(s) Active Triamcinolone Acetonide 0.1 % Externally Twice a day 1 application to affected area Sep, Active RESULTS No Results PROCEDURES No Known procedures INSTRUCTIONS MEDICATIONS ADMINISTERED No Known Medications MEDICAL (GENERAL) HISTORY Type Description Date Medical History hypertension Medical History panic attacks Surgical History cholecystectomy 2009 Hospitalization History surgery
--- OUTSIDE RECORDS SUMMARY | 2018-12-11 10:30 | XMS REPORT ---
Author LEIDA Colunga Organization [employer] Address Unknown Phone Unavailable Care Team Providers Care Enterprise Application Architect Name Role Phone LEIDA ANDINO CP Unavailable [...] Start Date End Date Status Dosage Valium [facility] [address]-09 10 MG Orally Once a day as needed February 02, 2015 1 tablet Results No Known Results Summary Purpose [employer] Submission
--- OUTSIDE RECORDS SUMMARY | 2018-12-11 10:31 | XMS REPORT ---
Author Author SANJEEV PHELPS [facility] Address [address] [place] [address] Care Team Providers Care Air Boatswain Name Role Phone SANJEEV PHELPS Unavailable PROBLEMS Type Condition ICD9-CM Code [id number] Code Onset Dates Condition Status SNOMED Code Problem Anxiety F41.9 Active 61070897 Problem Unspecified episodic mood disorder F39 Active [id number] Problem Unspecified personality disorder F60.9 Active 05793075 Problem Anxiety disorder, unspecified F41.9 Active [id number] ALLERGIES No Information SOCIAL HISTORY Never Assessed PLAN OF CARE Activity Details Follow Up 2 Weeks Reason:BH F/U VITAL SIGNS MEDICATIONS Unknown Medications RESULTS No Results PROCEDURES Procedure Date Ordered Result Body Site Psychotherapy, patient &/family, 45 minutes, established patient Dec 28, 2016 IMMUNIZATIONS No Known Immunizations MEDICAL (GENERAL) HISTORY Type Description Date Medical History hypertension Medical History panic attacks Surgical History cholecystectomy 2008 Hospitalization History surgery
--- OUTSIDE RECORDS SUMMARY | 2018-12-11 10:31 | XMS REPORT ---
Author LEIDA Colunga Organization [employer] Address Unknown Phone Unavailable Care Team Providers Care Claims Service Representative Name Role Phone LEIDA ANDINO CP Unavailable [...] examination for pulmonary tuberculosis V74.1 Active Medications No Known Medications Results No Known Results Summary Purpose [employer] Submission
--- OUTSIDE RECORDS SUMMARY | 2018-12-11 10:31 | XMS REPORT ---
Author Author LEIDA ANDINO Organization [facility] Address [address] [place] [address] Care Team Providers Care Recycling Coordinator Name Role Phone LEIDA ANDINO Unavailable PROBLEMS Type Condition ICD9-CM Code LID97-GD Code Onset Dates Condition Status SNOMED Code Problem Screening for malignant neoplasm of the cervix V76.2 Active 686951350 Problem Need for prophylactic vaccination and inoculation, Influenza V04.81 Active 025709636 Problem Unspecified breast screening V76.10 Active 647433341 Problem Urge incontinence 788.31 Active 01894385 Problem Candidiasis of vulva and vagina 112.1 Active 09605697 Problem Unspecified episodic mood disorder F39 Active 275106981 Problem Anxiety disorder, unspecified F41.9 Active 219249888 Problem Screening examination for pulmonary tuberculosis V74.1 Active 593038284 Problem PPV23 (PNEUMOVAX) DX V03.82 Active Problem Unspecified personality disorder F60.9 Active 89207860 Problem Edema 782.3 Active 56189394 ALLERGIES Unknown Allergies SOCIAL HISTORY No smoking Hx information available PLAN OF CARE VITAL SIGNS MEDICATIONS Medication Instructions Dosage Frequency Start Date End Date Duration Status Valium 10 mg Orally Once a day as needed. 1 tablet Jan, Active RESULTS No Results PROCEDURES No Known procedures IMMUNIZATIONS No Known Immunizations
--- OUTSIDE RECORDS SUMMARY | 2018-12-11 10:31 | XMS REPORT ---
Author Author LEIDA ANDINO Organization [facility] Address [address] [place] [address] Care Team Providers Care Material Flow Analyst Name Role Phone LEIDA ANDINO Unavailable PROBLEMS Type Condition ICD9-CM Code DWF01-GD Code Onset Dates Condition Status SNOMED Code Problem Stress incontinence of urine N39.3 Active 64914361 Problem Anxiety F41.9 Active 97319923 Problem Anxiety disorder, unspecified F41.9 Active 197600504 Problem Unspecified episodic mood disorder F39 Active [id number] Problem Unspecified personality disorder F60.9 Active 72902759 ALLERGIES No Information ENCOUNTERS Encounter Location Date Diagnosis [place] [id number] [place] [address] 95926- 8153 May, [facility] [id number] [place] [address] 49480- 4625 Apr, Anxiety disorder, unspecified F41.9 [place] [id number] [place] [address] 18030- 6405 Apr, Unspecified episodic mood disorder F39 ; Anxiety disorder, unspecified F41.9 and Unspecified personality disorder F60.9 [place] [id number] [place] [address] 72502- 7345 March, Anxiety disorder, unspecified F41.9 [place] [id number] [place] [address] 87873- 2689 March, Unspecified episodic mood disorder F39 ; Anxiety disorder, unspecified F41.9 and Unspecified personality disorder F60.9 [place] [id number] [place] [address] 85928- 3953 March, Anxiety disorder, unspecified F41.9 [place] [id number] [place] [address] 06373- 0168 Feb, Unspecified episodic mood disorder F39 ; Anxiety disorder, unspecified F41.9 and Unspecified personality disorder F60.9 [facility] [id number] [place] [address] 76396- 6224 Feb, Unspecified episodic mood disorder F39 ; Anxiety disorder, unspecified F41.9 and Unspecified personality disorder F60.9 [place] [id number] [place] [address] 53854- 6814 Feb, Anxiety disorder, unspecified F41.9 [facility] [address] [place] [address] 19851- 8390 Jan, Unspecified episodic mood disorder F39 ; Anxiety disorder, unspecified F41.9 and Unspecified personality disorder F60.9 [place] [id number] [place] [address] 92522- 4243 Jan, Anxiety F41.9 [place] [id number] [place] [address] 21094- 5821 Jan, Anxiety disorder, unspecified F41.9 [place] [address] [place] [address] 22355- 5604 Dec, Unspecified episodic mood disorder F39 ; Anxiety disorder, unspecified F41.9 and Unspecified personality disorder F60.9 [place] [address] [place] [address] 79170- 4384 Dec, Anxiety F41.9 [facility] [address] [place] [address] 76627- 3080 Dec, Anxiety disorder, unspecified F41.9 [facility] [id number] [place] [address] 06246- 5703 Dec, Unspecified episodic mood disorder F39 ; Anxiety disorder, unspecified F41.9 and Unspecified personality disorder F60.9 [place] [address] [place] [address] 88814- 4496 Nov, [facility] [address] [address]- 4370 Nov, [facility] [address] [place] [address] 12079- 4179 Nov, Unspecified episodic mood disorder F39 ; Anxiety disorder, unspecified F41.9 and Unspecified personality disorder F60.9 [facility] [id number] [place] [address] 42523- 0391 Nov, Anxiety disorder, unspecified F41.9 [facility] [address] [place] [address] 97251- 8884 Oct, Unspecified episodic mood disorder F39 ; Anxiety disorder, unspecified F41.9 and Unspecified personality disorder F60.9 [facility] [address] [address]- 3332 Oct, Vaginal yeast infection B37.3 [facility] [address] [address]- 2804 Oct, [facility] [id number] [place] [address] 46531- 7542 Oct, Anxiety disorder, unspecified F41.9 [facility] [address] [address]- 6190 Oct, Routine gynecological examination Z01.419 ; Screening for breast cancer Z12.31 and Vaginal yeast infection B37.3 [facility] [address] [address]- 1083 Sep, Unspecified episodic mood disorder F39 ; Anxiety disorder, unspecified F41.9 and Unspecified personality disorder F60.9 [facility] [address] [address]- 3130 Sep, [facility] [address] [address]- 3935 Sep, Anxiety disorder, unspecified F41.9 [facility] [id number] [place] [address] 68266- 2611 Sep, Bronchitis J40 and Stress incontinence of urine N39.3 [place] [address] 34366- 9910 Sep, Stress incontinence of urine N39.3 ; Bronchitis J40 and Anxiety F41.9 [place] [address] 32345- 6844 Sep, [facility] [address] 40484- 5125 Sep, Unspecified episodic mood disorder F39 ; Anxiety disorder, unspecified F41.9 and Unspecified personality disorder F60.9 [place] [id number] [place] [address] 45360- 8094 Aug, Anxiety F41.9 ; Stress incontinence of urine N39.3 and Encounter for immunization Z23 [place] [address] 99746- 1489 Aug, Anxiety disorder, unspecified F41.9 [place] [address] 80639- 2958 Jul, Unspecified episodic mood disorder F39 ; Anxiety disorder, unspecified F41.9 and Unspecified personality disorder F60.9 [place] [id number] [place] [address] 81373- 9010 Jul, [place] [id number] [place] [address] 87559- 8904 Jul, Unspecified episodic mood disorder F39 ; Anxiety disorder, unspecified F41.9 and Unspecified personality disorder F60.9 [place] [id number] [place] [address] 67601- 1247 Jul, Anxiety disorder, unspecified F41.9 [place] [id number] [place] [address] 49005- 2633 Jun, Unspecified episodic mood disorder F39 ; Anxiety disorder, unspecified F41.9 and Unspecified personality disorder F60.9 [facility] [address] [place] [address] 54620- 1324 Jun, Anxiety disorder, unspecified F41.9 [facility] [id number] [place] [address] 95928- 7218 Jun, Unspecified episodic mood disorder F39 ; Anxiety disorder, unspecified F41.9 and Unspecified personality disorder F60.9 [facility] [id number] [place] [address] 33048- 9956 Jun, [facility] [id number] [place] [address] 98743- 6052 May, Anxiety disorder, unspecified F41.9 [facility] [id number] [place] [address] 00411- 6159 May, Unspecified episodic mood disorder F39 ; Anxiety disorder, unspecified F41.9 and Unspecified personality disorder F60.9 [facility] [id number] [place] [address] 74125- 0750 Apr, Anxiety disorder, unspecified F41.9 [facility] [id number] [place] [address] 60863- 0174 March, Unspecified episodic mood disorder F39 ; Anxiety disorder, unspecified F41.9 and Unspecified personality disorder F60.9 [facility] [id number] [place] [address] 63927- 3244 March, Bronchitis J40 [facility] [address] [place] [address] 28997- 2378 March, Unspecified episodic mood disorder F39 ; Anxiety disorder, unspecified F41.9 and Unspecified personality disorder F60.9 [facility] [address] [address]- 0250 Feb, [facility] [id number] [place] [address] 41937- 1997 Feb, Unspecified episodic mood disorder F39 ; Anxiety disorder, unspecified F41.9 and Unspecified personality disorder F60.9 [facility] [address], [place] [address]- 9327 Feb, Bronchitis J40 [facility] [address], [place] [address]- 1856 Feb, Unspecified episodic mood disorder F39 ; Anxiety disorder, unspecified F41.9 and Unspecified personality disorder F60.9 [facility] [address], [place] [address]- 6269 Jan, Unspecified episodic mood disorder F39 ; Anxiety disorder, unspecified F41.9 and Unspecified personality disorder F60.9 [facility] [address] [address]- 4118 Jan, Bronchitis J40 [facility] [address] [place] [address] 57829- 4148 Jan, Unspecified episodic mood disorder F39 ; Anxiety disorder, unspecified F41.9 and Unspecified personality disorder F60.9 [facility] [address], [place] [address]- 6404 Dec, Anxiety F41.9 [facility] [address], [place] [address]- 2837 Dec, Unspecified episodic mood disorder F39 ; Anxiety disorder, unspecified F41.9 and Unspecified personality disorder F60.9 [facility] [id number] [address] Dec, [facility] [address], [place] [address]- 9793 Dec, Unspecified episodic mood disorder F39 ; Anxiety disorder, unspecified F41.9 and Unspecified personality disorder F60.9 [facility] [address], [place] [address]- 8745 Nov, [facility] [id number] [address]- 0978 Oct, Unspecified episodic mood disorder F39 ; Anxiety disorder, unspecified F41.9 and Unspecified personality disorder F60.9 [facility] [address], [place] [address]- 0294 Oct, [facility] [address], [place] [address] -9787 Oct, Acute upper respiratory infection, unspecified J06.9 ; Other viral agents as the cause of diseases classified elsewhere B97.89 and Cough R05 [facility] [id number] [place] [address] 07373- 4819 Aug, Unspecified episodic mood disorder F39 ; Anxiety disorder, unspecified F41.9 and Unspecified personality disorder F60.9 [facility] [id number] [address]- 5173 Aug, [facility] [id number] [place] [address] 98680- 1315 Aug, [facility] [id number] [place] [address] 57790- 4787 Aug, [facility] [id number] [place] [address] 80863- 7774 Aug, Visit for TB skin test Z11.1 [facility] [address], [place] [address]- 1889 Jul, [facility] [address], [place] [address]- 6113 Jul, [facility] [id number] [place] [address] 07183- 7935 Jul, [facility] [id number] [place] [address] 01723- 1954 Jul, [facility] [address], [place] [address]- 8546 Jul, [facility] [address], [place] [address]- 5750 Jul, Unspecified episodic mood disorder F39 ; Anxiety disorder, unspecified F41.9 and Unspecified personality disorder F60.9 [facility] [address] [facility] [id number] [address]- 5226 Jun, [facility] [address], [place] [address]- 2449 Jun, Unspecified episodic mood disorder F39 ; Anxiety disorder, unspecified F41.9 and Unspecified personality disorder F60.9 [facility] [id number], [place] [address]- 2141 Jun, [facility] [address], [place] [address]- 2451 May, Unspecified episodic mood disorder F39 ; Anxiety disorder, unspecified F41.9 and Unspecified personality disorder F60.9 [facility] [address], [place] [address]- 7987 May, [facility] [address], [place] [address]- 8129 May, [facility] [address], [place] [address]- 2942 May, Edema, unspecified R60.9 [facility] [address], [place] [address]- 5873 Apr, [facility] [address], [place] [address]- 4598 Apr, Unspecified episodic mood disorder F39 ; Anxiety disorder, unspecified F41.9 and Unspecified personality disorder F60.9 [facility] [id number], [place] [address]- 4141 Apr, Anxiety F41.9 [facility] [id number] [address]- 0788 March, Unspecified episodic mood disorder F39 ; Anxiety disorder, unspecified F41.9 and Unspecified personality disorder F60.9 [facility] [address] [place] [address] 91765- 2073 March, Unspecified episodic mood disorder F39 ; Anxiety disorder, unspecified F41.9 and Unspecified personality disorder F60.9 [facility] [address] [place] [address] 82248- 4057 Feb, Anxiety F41.9 [facility] [id number] [place] [address] 17648- 1460 Feb, Unspecified episodic mood disorder F39 ; Anxiety disorder, unspecified F41.9 and Unspecified personality disorder F60.9 [place] [address] [place] [address] 44868- 2399 Jan, Unspecified episodic mood disorder F39 ; Anxiety disorder, unspecified F41.9 and Unspecified personality disorder F60.9 [place] [address] [place] [address] 08108- 6106 Jan, Unspecified episodic mood disorder F39 ; Anxiety disorder, unspecified F41.9 and Unspecified personality disorder F60.9 [place] [address] [place] [address] 02323- 2221 Jan, Edema, unspecified R60.9 [facility] [address], [place] [address]- 7635 Dec, [facility] [address] [place] [address] 30444- 4248 Dec, [facility] [address] [place] [address] 03971- 5136 Dec, [facility] [address] [place] [address] 96964- 9359 Dec, Unspecified episodic mood disorder F39 ; Anxiety disorder, unspecified F41.9 and Unspecified personality disorder F60.9 [place] [id number] [address]- 1929 Nov, [facility] [id number] [place] [address] 39363- 4987 Nov, Unspecified episodic mood disorder F39 ; Anxiety disorder, unspecified F41.9 and Unspecified personality disorder F60.9 [facility] [address] [place] [address] 95654- 8717 Oct, Unspecified episodic mood disorder F39 ; Anxiety disorder, unspecified F41.9 and Unspecified personality disorder F60.9 [facility] [id number] [place] [address] 92227- 9099 Oct, Unspecified episodic mood disorder F39 ; Anxiety disorder, unspecified F41.9 and Unspecified personality disorder F60.9 [place] [id number] [place] [address] 71984- 8382 Sep, Unspecified episodic mood disorder F39 ; Anxiety disorder, unspecified F41.9 and Unspecified personality disorder F60.9 [place] [id number] [place] [address] 80091- 8406 Sep, Encounter for immunization Z23 [facility] [id number] [place] [address] 76055- 0112 Sep, Edema of left lower extremity R60.0 [facility] [address] [place] [address] 08933- 4398 Aug, Unspecified episodic mood disorder F39 ; Anxiety disorder, unspecified F41.9 and Unspecified personality disorder F60.9 [facility] [address], [place] [address]- 4851 Aug, [facility] [id number] [place] [address] 15744- 9317 Aug, Edema of left lower extremity R60.0 [facility] [address], [place] [address]- 9467 Aug, [facility] [address], [place] [address]- 6746 Aug, Unspecified episodic mood disorder F39 ; Anxiety disorder, unspecified F41.9 and Unspecified personality disorder F60.9 [facility] [address], [place] [address]- 5692 Jul, Unspecified episodic mood disorder 296.90 ; Anxiety disorder , unspecified 300.00 and Unspecified personality disorder 301.9 [facility] [id number] [place] [address] 65325- 1158 Jul, Unspecified episodic mood disorder 296.90 ; Anxiety disorder , unspecified 300.00 and Unspecified personality disorder 301.9 [facility] [id number] [place] [address] 44862- 9979 Jul, [facility] [id number] [place] [address] 44505- 7929 Jun, Unspecified episodic mood disorder 296.90 ; Anxiety disorder , unspecified 300.00 and Unspecified personality disorder 301.9 [facility] [address] [place] [address] 98595- 7726 May, Unspecified episodic mood disorder 296.90 ; Anxiety disorder , unspecified 300.00 and Unspecified personality disorder 301.9 [facility] [address], [place] [address]- 5574 May, Anxiety disorder, unspecified 300.00 [facility] [id number] [place] [address] 10237- 5207 May, Anxiety disorder, unspecified 300.00 and Edema 782.3 [facility] [address] [place] [address] 39830- 3494 May, Unspecified episodic mood disorder 296.90 ; Anxiety disorder , unspecified 300.00 and Unspecified personality disorder 301.9 [facility] [address], [place] [address]- 4700 Apr, [facility] [address] [address]- 7386 Apr, Unspecified episodic mood disorder 296.90 ; Anxiety disorder , unspecified 300.00 and Personality disorder, unspecified 301.9 [facility] [address], [place] [address]- 0445 Apr, Unspecified episodic mood disorder 296.90 ; Anxiety disorder , unspecified 300.00 and Unspecified personality disorder 301.9 [facility] [id number] [place] [address] 95792- 5311 March, [facility] [address] [place] [address] 80061- 1927 March, Unspecified episodic mood disorder 296.90 ; Anxiety disorder , unspecified 300.00 and Unspecified personality disorder 301.9 [facility] [address], [place] [address]- 8526 March, Unspecified episodic mood disorder 296.90 ; Anxiety disorder 300.00 and Unspecified personality disorder 301.9 [facility] [address], [place] [address]- 2095 March, [facility] [id number] [place] [address] 13493- 0737 March, [facility] [address], [place] [address]- 3289 Feb, [facility] [address], [place] [address]- 8694 Feb, [facility] [address], [place] [address]- 8254 Feb, [facility] [id number] 7726 Jan, [facility] [address] [address] 2475 Jan, [facility] [address], [place] [address]- 8528 Jan, [facility] [place] [facility] [address] [id number] [place] [address]- 9761 Jan, [facility] [place] [facility] [address] [id number] [place] [address]- 4436 Jan, 2014 [facility] [place] [facility] [address] [facility] [id number] [place] [address]- 4776 Jan, 2014 [facility] [place] [facility] [address] [facility] [id number] [place] [id number] Jan, 2014 [facility] [place] [facility] [address] [id number] [place] [address]- 2830 Jan, 2014 [facility] [place] [facility] [address] [id number] [place] [address]- 8592 Jan, 2014 [facility] [place] [facility] [address] [facility] [id number] [place] [address]- 4942 Jan, 2014 [facility] [place] [facility] [address] [id number] [place] [address]- 1555 Jan, 2014 [facility] [place] [facility] [address] [id number] [place] [address]- 1400 Jan, [facility] [place] [facility] [address] [facility] [id number] [place] [address]- 9113 Jan, 2014 [facility] [place] [facility] [address] [facility] [id number] [place] [address]- 7802 Jan, 2014 [facility] [place] [facility] [address] [id number] [address]- 2080 Jan, 2014 [facility] [place] [facility] [address] [id number] [place] [address]- 3986 Jan, [facility] [place] [facility] [address] [id number] [place] [address]- 5623 Dec, [facility] [place] [facility] [address] [facility] [id number], [place] [address]- 1576 Dec, [facility] [place] [facility] [address] [facility] [id number] [address]- 3806 Dec, 2014 [facility] [address] [id number] [place] [address]22 Dec, [facility] [address] [id number] [place] [address]- 8873 Nov, [facility] [address] [id number] [place] [address]- 7555 Nov, [facility] [address] [id number] [place] [address]- 3678 Nov, [facility] [address] [id number] [place] [address]- 0312 Nov, [facility] [address] [id number] [place] [address]- 2278 Oct, [facility] [address] [id number] [place] [address]- 5511 Oct, [facility] [address] [id number] [place] [address]- 0481 Oct, [facility] [address] [id number] [place] [address]- 6591 Oct, [facility] [address] [id number] [place] [address]- 3519 Oct, [facility] [address] [id number] [place] [address]- 1978 Oct, [facility] [place] [facility] [address] [id number] [place] [address]- 5504 Oct, [facility] [place] [facility] [address] [id number] [place] [address]- 0311 Oct, [facility] [place] [facility] [address] [id number] [place] [address]- 5460 Oct, [facility] [place] [facility] [address] [id number] [place] [address] Oct, [facility] [place] [facility] [address] [id number] [place] [address] Oct, [facility] [place] [facility] [address] [id number] [place] [address] Oct, [facility] [place] [facility] [address] [id number] [place] [address] Oct, [facility] [place] [facility] [address] [id number] [place] [address] Oct, [facility] [place] [facility] [address] [id number] [place] [address] Oct, [facility] [place] [facility] [address] [id number] [place] [address] 2398 Oct, [facility] [place] [facility] [address] [id number] [place] [address] 2709 Sep, [facility] [place] [facility] [address] [id number] [place] [address] 5298 Sep, [facility] [place] [facility] [address] [id number] [place] [address] 7[address] Sep, [facility] [place] [facility] [address] [id number] [place] [address] 8181 Sep, [facility] [place] [facility] [address] [id number] [place] [address]- 7378 Sep, [facility] [place] [facility] [address] [id number] [place] [address]- 2577 14 Sep, 2014 [facility] [place] [facility] [address] [id number] [place] [address] 9028 Sep, [facility] [place] [facility] [address] [id number] [place] [address]- 5059 Sep, [facility] [place] [facility] [address] [id number] [place] [address] 9540 Sep, [facility] [place] [facility] [address] [id number] [place] [address]- 2651 Sep, [facility] [place] [facility] [address] [id number] [place] [address]- 4176 Aug, [facility] [place] [facility] [address] [id number] [place] [address]- 9295 30 Aug, 2014 [facility] [place] [facility] [address] [id number] [place] [address]- 1128 Aug, [facility] [place] [facility] [address] [id number] [place] [address]- 7535 Aug, [facility] [place] [facility] [address] [id number] [place] [address]- 6511 Aug, [facility] [place] [facility] [address] [id number] [place] [address]- 9517 Aug, [facility] [place] [facility] [address] [id number] [place] [address]- 0541 Aug, [facility] [place] [facility] [address] [id number], [place] [address] Aug, [facility] [place] [facility] [address] [id number] [place] [address]- 2285 29 Jul, 2014 [facility] [place] [facility] [address] [id number] [place] [address]- 1280 29 Jul, 2014 [facility] [place] [facility] [address] [id number], [place] [address] Jul, 2013 [facility] [place] [facility] [address] [id number], [place] [address] 89[address] 05 Jul, 2013 [facility] [place] [facility] [address] [id number] [place] [address]- 2489 Jul, [facility] [place] [facility] [address] [id number], [place] [address] 49[address] 05 Jul, 2013 [facility] [place] [facility] [address] [id number], [place] [address]- 2[address] Jun, [facility] [place] [facility] [address] [id number] [place] [address]- 8716 Jun, [facility] [place] [facility] [address] [id number] [place] [address]- 5652 May, [facility] [place] [facility] [address] [id number] [place] [address]- 9405 May, [facility] [place] [facility] [address] [id number] [place] [address]- 5049 May, [facility] [place] [facility] [address] [id number] [place] [address]- 6826 May, [facility] [place] [facility] [address] [id number] [place] [address]- 8800 May, [facility] [place] [facility] [address] [id number] [place] [address]- 0528 May, [facility] [place] [facility] [address] [id number] [place] [address]- 2591 May, [facility] [place] [facility] [address] [id number] [place] [address]- 8645 May, [facility] [place] [facility] [address] [id number] [place] [address]- 5590 Apr, [facility] [place] [facility] [address] [id number] [place] [address]- 9537 Apr, [facility] [place] [facility] [address] [id number] [place] [address]- 3552 March, [facility] [place] [facility] [address] [id number] [place] [address]- 5457 March, [facility] [place] [facility] [address] [id number] [place] [address]- 1698 Feb, [facility] [place] [facility] [address] [id number] [place] [address]- 7852 Feb, [facility] [place] [facility] [address] [id number] [place] [address]- 4412 Feb, [facility] [place] [facility] [address] [id number] [place] [address]- 3882 Feb, [facility] [place] [facility] [address] [id number] [place] [address]- 3201 Feb, [facility] [place] [facility] [address] [id number] [place] [address]- 8392 Feb, [facility] [place] [facility] [address] [id number] [place] [address]- 5537 Feb, [facility] [place] [facility] [address] [id number] [place] [address]- 3171 Feb, [facility] [place] [facility] [address] [id number] [place] [address]- 6191 Feb, [facility] [place] [facility] [address] [id number] [place] [address]- 3940 Feb, [facility] [place] [facility] [address] [id number] [place] [address]- 6852 Jan, [facility] [place] [facility] [address] [id number] [place] [address]- 7063 Jan, [facility] [place] [facility] [address] [id number] [place] [address]- 6336 Jan, [facility] [place] [facility] [address] [id number] [place] [address]- 4371 Jan, [facility] [place] [facility] [address] [id number] [place] [address]- 4522 Jan, [facility] [place] [facility] [address] [id number] [place] [address]- 6720 Dec, [facility] [place] [facility] [address] [id number] [place] [address]- 7678 Dec, [facility] [place] [facility] [address] [id number] [place] [address]- 9850 Dec, [facility] [place] [facility] [address] [id number], [place] [address]- 9867 10 Dec, 2013 [facility] [address] [id number] [place] [address]- 8917 Dec, [facility] [place] [facility] [address] [id number] [place] [address]- 4814 Dec, [facility] [place] [facility] [address] [id number] [place] [address]- 7174 Nov, [facility] [place] [facility] [address] [id number] [place] [address]- 7394 Nov, [facility] [place] [facility] [address] [id number] [place] [address]- 3108 Nov, [facility] [place] [facility] [address] [id number] [place] [address]- 6008 Nov, [facility] [address] [id number] [place] [address]- 6619 Nov, [facility] [place] [facility] [address] [id number] [place] [address]- 6759 Nov, [facility] [place] [facility] [address] [id number] [place] [address]- 3323 Nov, [facility] [place] [facility] [address] [facility] [id number] [place] [address]- 6124 Nov, [facility] [place] [facility] [address] [id number] [place] [address]- 0382 Oct, [facility] [place] [facility] [address] [id number] [place] [address]- 6867 Oct, [facility] [place] [facility] [address] [id number] [place] [address]- 4472 Oct, [facility] [place] [facility] [address] [id number] [place] [address]- 9429 Oct, [facility] [place] [facility] [address] [id number] [place] [address]- 5583 Oct, [facility] [place] [facility] [address] [id number] [place] [address]- 9095 Oct, [facility] [place] [facility] [address] [id number] [place] [address]- 0052 Oct, [facility] [place] [facility] [address] [id number] [place] [address]- 1374 Oct, [facility] [place] [facility] [address] [id number] [place] [address]- 9402 Sep, [facility] [place] [facility] [address] [id number] [place] [address]- 3714 Sep, [facility] [place] [facility] [address] [id number] [place] [address]- 1235 Sep, [facility] [place] [facility] [address] [id number] [place] [address]- 5783 Sep, [facility] [place] [facility] [address] [id number] [place] [address]- 2724 Sep, [facility] [place] [facility] [address] [id number] [place] [address]- 1501 Sep, [facility] [place] [facility] [address] [id number] [place] [address]- 6765 Sep, [facility] [place] [facility] [address] [id number] [place] [address]- 2726 Sep, [facility] [place] [facility] [address] [id number] [place] [address]- 2215 Aug, [facility] [place] [facility] [address] [id number] [place] [address]- 6420 Aug, [facility] [place] [facility] [address] [id number] [place] [address]- 9655 Aug, [facility] [place] [facility] [address] [id number] [place] [address]- 2239 Jul, [facility] [place] [facility] [address] [id number] [place] [address]- 0606 Jun, [facility] [address] [id number] [place] [address]- 1328 Jun, [facility] [place] [facility] [address] [id number] [place] [address]- 3384 Jun, [facility] [place] [facility] [address] [id number] [place] [address]- 1965 Jun, [facility] [place] [facility] [address] [id number] [place] [address]- 8746 Jun, [facility] [place] [facility] [address] [id number] [place] [address]- 3522 May, [facility] [place] [facility] [address] [id number] [place] [address]- 1259 May, [facility] [place] [facility] [address] [id number] [place] [address]- 7944 Apr, [facility] [place] [facility] [address] [id number] [place] [address]- 9888 Apr, [facility] [place] [facility] [address] [id number] [place] [address]- 2688 March, [facility] [place] [facility] [address] [id number] [place] [address]- 0114 March, [facility] [place] [facility] [address] [id number] [place] [address]- 7071 March, [facility] [place] [facility] [address] [id number] [place] [address]- 9274 March, [facility] [place] [facility] [address] [id number] [place] [address]- 0723 March, [facility] [place] [facility] [address] [id number] [place] [address]- 7628 Feb, [facility] [place] [facility] [address] [id number] [place] [address]- 5294 Feb, [facility] [place] [facility] [address] [id number] [place] [address] 2546 Feb, [facility] [address] [id number] [place] [address]- 5256 Jan, [facility] [place] [facility] [address] [id number] [place] [address]- 7036 Dec, [facility] [address] [id number] [place] [address]- 0146 Dec, [facility] [place] [facility] [address] [id number] [place] [address]- 1359 Dec, [facility] [address] [id number] [place] [address]- 4096 Dec, [facility] [address] [id number] [place] [address]- 8227 Nov, [facility] [address] [id number] [place] [address]- 0715 Nov, [facility] [address] [id number] [place] [address]- 4687 Nov, [facility] [address] [id number] [place] [address]- 0889 Nov, [facility] [address] [id number] [place] [address]852 Oct, [facility] [place] [facility] [address] [id number] [place] [address]- 3980 Oct, [facility] [address] [id number] [place] [address]- 2546 Oct, [facility] [place] [facility] [address] [id number] [place] [address]- 6786 Oct, [facility] [place] [facility] [address] [id number] [place] [address]- 2546 Sep, [facility] [place] [facility] [address] [id number] [place] [address]- 7115 14 Sep, 2012 [facility] [place] [facility] [address] [id number] [place] [address]- 3871 Sep, [facility] [place] [facility] [address] [id number] [place] [address]- 1415 Sep, [facility] [place] [facility] [address] [id number] [place] [address]- 0893 Sep, [facility] [place] [facility] [address] [id number] [place] [address]- 4135 Sep, [facility] [place] [facility] [address] [id number] [place] [address]- 7582 Aug, [facility] [place] [facility] [address] [id number] [place] [address]- 5390 Aug, [facility] [place] [facility] [address] [facility] [id number] [place] [address]- 1667 Aug, [facility] [place] [facility] [address] [id number] [place] [address]- 7715 Jul, [facility] [place] [facility] [address] [id number] [place] [address]- 6010 Jul, [facility] [place] [facility] [address] [facility] [id number], [place] [address]- 5137 Jun, [facility] [place] [facility] [address] [id number], [place] [address]- 3807 May, [facility] [place] [facility] [address] [id number], [place] [address]- 3865 May, [facility] [place] [facility] [address] [id number] [place] [address]- 1139 Apr, [facility] [place] [facility] [address] [id number], [place] [address]- 6534 Apr, [facility] [place] [facility] [address] [facility] [id number] [place] [address]- 2199 March, [facility] [place] [facility] [address] [id number] [place] [address]- 6478 07 Mar, 2012 [facility] [address] [id number] [place] [address]- 4246 19 Feb, 2012 [facility] [place] [facility] [address] [id number] [place] [address]- 6926 16 Feb, 2012 [facility] [place] [facility] [address] [facility] [id number] [place] [address]- 8126 09 Feb, 2012 [facility] [place] [facility] [address] [id number] [place] [address]- 2466 06 Feb, 2012 [facility] [place] [facility] [address] [id number] [place] [address]- 7219 15 Jan, 2012 [facility] [place] [facility] [address] [id number] [place] [address]- 4766 07 Jan, 2012 [facility] [place] [facility] [address] [id number] [place] [address]- 4735 29 Dec, 2011 [facility] [place] [facility] [address] [id number] [place] [address]- 1464 28 Dec, 2011 [facility] [place] [facility] [address] [id number] [place] [address]- 4272 26 Dec, 2011 [facility] [place] [facility] [address] [facility] [id number] [place] [address]- 6033 23 Dec, 2011 [facility] [place] [facility] [address] [id number] [place] [address] 2546 20 Dec, 2011 [facility] [place] [facility] [address] [id number] [place] [address] 2546 15 Dec, 2011 [facility] [place] [facility] [address] [id number] [place] [address]- 1416 10 Dec, 2011 [facility] [place] [facility] [address] [facility] [id number] [place] [address]- 2546 09 Dec, 2011 [facility] [place] [facility] [id number] [place] [address]- 4958 08 Dec, 2011 [facility] [place] [facility] [address] [id number] [place] [address]- 4631 Dec, [facility] [place] [facility] [address] [id number] [place] [address]- 1336 Dec, [facility] [place] [facility] [address] [id number] [place] [address]- 0026 Dec, [facility] [place] [facility] [address] [id number] [place] [address]- 8501 Dec, [facility] [place] [facility] [address] [id number] [place] [address]- 3884 Nov, [facility] [place] [facility] [address] [id number] [place] [address]- 1373 Nov, [facility] [place] [facility] [address] [id number] [place] [address]- 7649 Nov, [facility] [place] [facility] [address] [id number] [place] [address]- 4125 Nov, [facility] [place] [facility] [address] [id number] [place] [address]- 5772 Nov, [facility] [place] [facility] [address] [id number] [place] [address]- 7889 Nov, [facility] [place] [facility] [address] [id number] [place] [address]- 8998 Oct, [facility] [place] [facility] [address] [id number] [place] [address]- 8567 Oct, [facility] [place] [facility] [address] [id number] [place] [address]- 1043 Sep, [facility] [place] [facility] [address] [id number] [place] [address]- 9747 Sep, [facility] [place] [facility] [address] [id number] [place] [address]- 5184 Sep, [facility] [place] [facility] [id number] [address]- 2546 Sep, [facility] [id number], [place] [address]- 6826 Sep, [facility] [id number], [place] [address]- 2546 March, [facility] [id number], [place] [address]- 6166 Oct, [facility] [id number], [place] [address]- 2546 Oct, [facility] [id number] [place] [address]- 7236 Oct, [facility] [id number], [place] [address]- 4236 Sep, [facility] [id number] [place] [address]- 6256 Sep, [facility] [id number] [address]- 2005 Sep, [facility] [id number], [place] [address]- 7438 Sep, [facility] [id number], [place] [address]- 2516 Aug, [facility] [id number], [place] [address]- 2546 Oct, [facility] [address] [id number] [address]- 2546 Oct, [facility] [id number], [place] [address]- 3846 May, IMMUNIZATIONS No Known Immunizations SOCIAL HISTORY Never Assessed REASON FOR VISIT Controlled Med Refill - 12/13/17 - Needs [employer]ox PLAN OF CARE VITAL SIGNS MEDICATIONS Medication [...]
--- OUTSIDE RECORDS SUMMARY | 2018-12-11 10:32 | XMS REPORT ---
Author Author LEIDA ANDINO Organization [facility] Address [address] [place] [address] Care Team Providers Care International Travel Consultant Name Role Phone LEIDA ANDINO Unavailable PROBLEMS Type Condition ICD9-CM Code TCM07-GA Code Onset Dates Condition Status SNOMED Code Problem Stress incontinence of urine N39.3 Active 48928418 Problem Anxiety F41.9 Active 24951965 Problem Anxiety disorder, unspecified F41.9 Active 583067960 Problem Unspecified episodic mood disorder F39 Active 135741201 Problem Unspecified personality disorder F60.9 Active 11192022 ALLERGIES No Information ENCOUNTERS Encounter Location Date Diagnosis [place] [id number] [place] [address] 94933- 7004 Apr, [place] [id number] [place] [address] 21941- 2984 March, Anxiety disorder, unspecified F41.9 [place] [id number] [place] [address] 23306- 4387 March, Unspecified episodic mood disorder F39 ; Anxiety disorder, unspecified F41.9 and Unspecified personality disorder F60.9 [place] [id number] [place] [address] 72130- 5977 March, Anxiety disorder, unspecified F41.9 [place] [id number] [place] [address] 35254- 7812 Feb, Unspecified episodic mood disorder F39 ; Anxiety disorder, unspecified F41.9 and Unspecified personality disorder F60.9 [place] [id number] [place] [address] 85906- 4972 Feb, Unspecified episodic mood disorder F39 ; Anxiety disorder, unspecified F41.9 and Unspecified personality disorder F60.9 [facility] [address] [address] 3836 Feb, Anxiety disorder, unspecified F41.9 [facility] [id number] [place] [address] 96445- 4736 Jan, Unspecified episodic mood disorder F39 ; Anxiety disorder, unspecified F41.9 and Unspecified personality disorder F60.9 [facility] [id number] [place] [address] 41145- 0078 Jan, Anxiety F41.9 [facility] [id number] [place] [address] 55642- 4976 Jan, Anxiety disorder, unspecified F41.9 [facility] [id number] [place] [address] 95131- 9997 Dec, Unspecified episodic mood disorder F39 ; Anxiety disorder, unspecified F41.9 and Unspecified personality disorder F60.9 [facility] [id number] [place] [address] 64136- 7120 Dec, Anxiety F41.9 [facility] [id number] [place] [address] 03616- 8024 Dec, Anxiety disorder, unspecified F41.9 [facility] [address], [place] [address] 7818 Dec, Unspecified episodic mood disorder F39 ; Anxiety disorder, unspecified F41.9 and Unspecified personality disorder F60.9 [facility] [address], [place] [address]- 6723 Nov, [facility] [id number] [place] [address] 83932- 7395 Nov, [facility] [id number] [place] [address] 30573- 1743 Nov, Unspecified episodic mood disorder F39 ; Anxiety disorder, unspecified F41.9 and Unspecified personality disorder F60.9 [place] [address], [place] [address] 5602 Nov, Anxiety disorder, unspecified F41.9 [place] [id number] [place] [address] 25614- 2934 Oct, Unspecified episodic mood disorder F39 ; Anxiety disorder, unspecified F41.9 and Unspecified personality disorder F60.9 [place] [id number] [place] [address] 81421- 6353 Oct, Vaginal yeast infection B37.3 [place] [id number] [place] [address] 11820- 5160 Oct, [place] [id number] [place] [address] 66176- 4738 Oct, Anxiety disorder, unspecified F41.9 [place] [id number] [place] [address] 05745- 0771 Oct, Routine gynecological examination Z01.419 ; Screening for breast cancer Z12.31 and Vaginal yeast infection B37.3 [place] [id number] [place] [address] 97999- 8686 Sep, Unspecified episodic mood disorder F39 ; Anxiety disorder, unspecified F41.9 and Unspecified personality disorder F60.9 [place] [id number] [place] [address] 11698- 9869 Sep, [place] [id number] [place] [address] 33670- 6197 Sep, Anxiety disorder, unspecified F41.9 [place] [id number] [place] [address] 04350- 9131 Sep, Bronchitis J40 and Stress incontinence of urine N39.3 [place] [id number] [place] [address] 67402- 3259 Sep, Stress incontinence of urine N39.3 ; Bronchitis J40 and Anxiety F41.9 [place] [id number] [address]- 0774 Sep, [facility] [id number] [place] [address] 57368- 2430 Sep, Unspecified episodic mood disorder F39 ; Anxiety disorder, unspecified F41.9 and Unspecified personality disorder F60.9 [facility] [id number] [place] [address] 61834- 1971 Aug, Anxiety F41.9 ; Stress incontinence of urine N39.3 and Encounter for immunization Z23 [facility] [id number] [place] [address] 81588- 4833 Aug, Anxiety disorder, unspecified F41.9 [place] [id number] [place] [address] 88939- 9261 Jul, Unspecified episodic mood disorder F39 ; Anxiety disorder, unspecified F41.9 and Unspecified personality disorder F60.9 [place] [id number] [place] [address] 95063- 1083 Jul, [facility] [id number] [place] [address] 82404- 6248 Jul, Unspecified episodic mood disorder F39 ; Anxiety disorder, unspecified F41.9 and Unspecified personality disorder F60.9 [facility] [id number] [place] [address] 18680- 4989 Jul, Anxiety disorder, unspecified F41.9 [facility] [id number] [place] [address] 00698- 1557 Jun, Unspecified episodic mood disorder F39 ; Anxiety disorder, unspecified F41.9 and Unspecified personality disorder F60.9 [facility] [id number] [place] [address] 63119- 3332 Jun, Anxiety disorder, unspecified F41.9 [facility] [id number] [place] [address] 91171- 2954 Jun, Unspecified episodic mood disorder F39 ; Anxiety disorder, unspecified F41.9 and Unspecified personality disorder F60.9 [facility] [address], [place] [address]- 3782 Jun, [facility] [id number] [place] [address] 77228- 4606 May, Anxiety disorder, unspecified F41.9 [facility] [id number] [place] [address] 37569- 9738 May, Unspecified episodic mood disorder F39 ; Anxiety disorder, unspecified F41.9 and Unspecified personality disorder F60.9 [facility] [id number] [place] [address] 50417- 7906 Apr, Anxiety disorder, unspecified F41.9 [facility] [id number] [place] [address] 49039- 6023 March, Unspecified episodic mood disorder F39 ; Anxiety disorder, unspecified F41.9 and Unspecified personality disorder F60.9 [facility] [id number] [place] [address] 49825- 7586 March, Bronchitis J40 [facility] [id number] [place] [address] 34485- 6523 March, Unspecified episodic mood disorder F39 ; Anxiety disorder, unspecified F41.9 and Unspecified personality disorder F60.9 [facility] [id number] [place] [address] 98402- 1383 Feb, [facility] [id number] [place] [address] 99661- 5795 Feb, Unspecified episodic mood disorder F39 ; Anxiety disorder, unspecified F41.9 and Unspecified personality disorder F60.9 [facility] [id number] [place] [address] 60646- 3857 Feb, Bronchitis J40 [facility] [id number] [place] [address] 31507- 2606 Feb, Unspecified episodic mood disorder F39 ; Anxiety disorder, unspecified F41.9 and Unspecified personality disorder F60.9 [facility] [id number] [place] [address] 47931- 8466 Jan, Unspecified episodic mood disorder F39 ; Anxiety disorder, unspecified F41.9 and Unspecified personality disorder F60.9 [facility] [address], [place] [address]- 7093 Jan, Bronchitis J40 [facility] [id number] [place] [address] 64077- 1201 Jan, Unspecified episodic mood disorder F39 ; Anxiety disorder, unspecified F41.9 and Unspecified personality disorder F60.9 [facility] [id number] [place] [address] 46221- 7933 Dec, Anxiety F41.9 [place] [id number] [place] [address] 01012- 4827 Dec, Unspecified episodic mood disorder F39 ; Anxiety disorder, unspecified F41.9 and Unspecified personality disorder F60.9 [facility] [id number] [id number] Dec, [facility] [id number] [place] [address] 93158- 9608 Dec, Unspecified episodic mood disorder F39 ; Anxiety disorder, unspecified F41.9 and Unspecified personality disorder F60.9 [facility] [address], [place] [address]- 5054 Nov, [facility] [id number] [place] [address] 39234- 1926 Oct, Unspecified episodic mood disorder F39 ; Anxiety disorder, unspecified F41.9 and Unspecified personality disorder F60.9 [facility] [id number] [place] [address] 16166- 8375 Oct, [facility] [id number] [place] [address] 91268 -2982 Oct, Acute upper respiratory infection, unspecified J06.9 ; Other viral agents as the cause of diseases classified elsewhere B97.89 and Cough R05 [facility] [address], [place] [address]- 9206 Aug, Unspecified episodic mood disorder F39 ; Anxiety disorder, unspecified F41.9 and Unspecified personality disorder F60.9 [facility] [id number] [place] [address] 24298- 3571 Aug, [facility] [id number] [place] [address] 46035- 4672 Aug, [facility] [id number] [place] [address] 03234- 3504 Aug, [facility] [id number] [place] [address] 43087- 2784 Aug, Visit for TB skin test Z11.1 [facility] [id number] [address]- 5771 Jul, [facility] [id number] [place] [address] 01015- 3194 Jul, [facility] [address], [place] [address]- 7008 Jul, [facility] [address], [place] [address]- 4998 Jul, [facility] [address], [place] [address]- 2379 Jul, [facility] [id number] [place] [address] 19616- 7639 Jul, Unspecified episodic mood disorder F39 ; Anxiety disorder, unspecified F41.9 and Unspecified personality disorder F60.9 [facility] [address], [place] [address]- 6953 Jun, [facility] [id number] [address]- 0519 Jun, Unspecified episodic mood disorder F39 ; Anxiety disorder, unspecified F41.9 and Unspecified personality disorder F60.9 [facility] [id number] [place] [address] 80741- 5453 Jun, [facility] [id number] [place] [address] 36535- 2969 May, Unspecified episodic mood disorder F39 ; Anxiety disorder, unspecified F41.9 and Unspecified personality disorder F60.9 [facility] [id number] [place] [address] 10114- 9847 May, [facility] [id number] [place] [address] 18437- 4672 May, [facility] [id number] [place] [address] 18904- 7406 May, Edema, unspecified R60.9 [facility] [address], [place] [address]- 5419 Apr, [facility] [id number] [place] [address] 60789- 5601 Apr, Unspecified episodic mood disorder F39 ; Anxiety disorder, unspecified F41.9 and Unspecified personality disorder F60.9 [facility] [address], [place] [address]- 9747 Apr, Anxiety F41.9 [facility] [address], [place] [address]- 5611 March, Unspecified episodic mood disorder F39 ; Anxiety disorder, unspecified F41.9 and Unspecified personality disorder F60.9 [facility] [id number] [place] [address] 46820- 1311 March, Unspecified episodic mood disorder F39 ; Anxiety disorder, unspecified F41.9 and Unspecified personality disorder F60.9 [facility] [id number] [place] [address] 96979- 8196 Feb, Anxiety F41.9 [facility] [id number] [place] [address] 75251- 0216 Feb, Unspecified episodic mood disorder F39 ; Anxiety disorder, unspecified F41.9 and Unspecified personality disorder F60.9 [facility] [id number] [place] [address] 75132- 9732 Jan, Unspecified episodic mood disorder F39 ; Anxiety disorder, unspecified F41.9 and Unspecified personality disorder F60.9 [facility] [id number] [place] [address] 01052- 3771 Jan, Unspecified episodic mood disorder F39 ; Anxiety disorder, unspecified F41.9 and Unspecified personality disorder F60.9 [facility] [id number] [place] [address] 99496- 0352 Jan, Edema, unspecified R60.9 [facility] [id number] [place] [address] 26332- 3106 Dec, [facility] [id number] [place] [address] 96247- 8038 Dec, [facility] [id number] [place] [address] 00313- 7542 Dec, [facility] [id number] [place] [address] 22386- 4802 Dec, Unspecified episodic mood disorder F39 ; Anxiety disorder, unspecified F41.9 and Unspecified personality disorder F60.9 [facility] [id number] [place] [address] 97823- 2363 Nov, [facility] [id number] [place] [address] 09609- 0176 Nov, Unspecified episodic mood disorder F39 ; Anxiety disorder, unspecified F41.9 and Unspecified personality disorder F60.9 [facility] [id number] [place] [address]- 2546 Oct, Unspecified episodic mood disorder F39 ; Anxiety disorder, unspecified F41.9 and Unspecified personality disorder F60.9 [place] [id number] [place] [address] 86014- 2495 Oct, Unspecified episodic mood disorder F39 ; Anxiety disorder, unspecified F41.9 and Unspecified personality disorder F60.9 [place] [id number] [place] [address] 93542- 5141 Sep, Unspecified episodic mood disorder F39 ; Anxiety disorder, unspecified F41.9 and Unspecified personality disorder F60.9 [place] [id number] [place] [address] 60180- 3542 Sep, Encounter for immunization Z23 [place] [id number] [place] [address] 41965- 4519 Sep, Edema of left lower extremity R60.0 [facility] [id number] [place] [address] 90192- 6823 Aug, Unspecified episodic mood disorder F39 ; Anxiety disorder, unspecified F41.9 and Unspecified personality disorder F60.9 [place] [id number] [place] [address] 18884- 6171 Aug, [facility] [id number] [place] [address] 42595- 0360 Aug, Edema of left lower extremity R60.0 [facility] [id number] [place] [address] 51619- 3286 Aug, [facility] [id number] [place] [address] 42227- 2720 Aug, Unspecified episodic mood disorder F39 ; Anxiety disorder, unspecified F41.9 and Unspecified personality disorder F60.9 [facility] [id number] [place] [address] 60037- 4318 Jul, Unspecified episodic mood disorder 296.90 ; Anxiety disorder , unspecified 300.00 and Unspecified personality disorder 301.9 [facility] [address] [address]- 3565 Jul, Unspecified episodic mood disorder 296.90 ; Anxiety disorder , unspecified 300.00 and Unspecified personality disorder 301.9 [facility] [address], [place] [address]- 3917 Jul, [facility] [id number] [place] [address] 33006- 1774 Jun, Unspecified episodic mood disorder 296.90 ; Anxiety disorder , unspecified 300.00 and Unspecified personality disorder 301.9 [facility] [id number] [place] [address] 61667- 2816 May, Unspecified episodic mood disorder 296.90 ; Anxiety disorder , unspecified 300.00 and Unspecified personality disorder 301.9 [facility] [id number] [place] [address] 50157- 2329 May, Anxiety disorder, unspecified 300.00 [facility] [id number] [place] [address] 62839- 4372 May, Anxiety disorder, unspecified 300.00 and Edema 782.3 [facility] [id number] [place] [address] 47778- 7702 May, Unspecified episodic mood disorder 296.90 ; Anxiety disorder , unspecified 300.00 and Unspecified personality disorder 301.9 [facility] [address], [place] [address]- 3070 Apr, [facility] [id number] [place] [address] 36712- 5219 Apr, Unspecified episodic mood disorder 296.90 ; Anxiety disorder , unspecified 300.00 and Personality disorder, unspecified 301.9 [facility] [address], [place] [address]- 9689 Apr, Unspecified episodic mood disorder 296.90 ; Anxiety disorder , unspecified 300.00 and Unspecified personality disorder 301.9 [facility] [address] [facility] [id number] [address]- 3026 March, [facility] [address], [place] [address]- 3693 March, Unspecified episodic mood disorder 296.90 ; Anxiety disorder , unspecified 300.00 and Unspecified personality disorder 301.9 [facility] [id number] 1869 March, Unspecified episodic mood disorder 296.90 ; Anxiety disorder 300.00 and Unspecified personality disorder 301.9 [facility] [address] 5454 March, [facility] [id number] [address]- 1499 March, [facility] [address], [place] [address]- 2878 Feb, [facility] [address], [place] [address]- 7352 Feb, [facility] [address], [place] [address]- 1016 Feb, [facility] [id number], [place] [address]- 4937 Jan, [facility] [address], [place] [address]- 4521 Jan, [facility] [id number] [address]- 0169 Jan, [facility] [id number] [address]- 4092 Jan, [facility] [id number] [address]- 5356 Jan, [facility] [address], [place] [address]- 2856 Jan, [facility] [place] [facility] [address] [id number] [place] [id number] Jan, 2014 [facility] [place] [facility] [address] [id number] [place] [address]- 8029 Jan, 2014 [facility] [place] [facility] [address] [id number] [place] [address]- 7375 Jan, 2014 [facility] [place] [facility] [address] [id number] [place] [address]- 7223 Jan, 2014 [facility] [place] [facility] [address] [id number] [place] [address]- 6939 Jan, 2014 [facility] [place] [facility] [address] [id number] [place] [address]- 8023 Jan, 2014 [facility] [place] [facility] [address] [id number] [place] [address]- 3921 Jan, 2014 [facility] [place] [facility] [address] [id number] [place] [address]- 5409 Jan, [facility] [place] [facility] [address] [id number] [place] [address]- 7749 Jan, [facility] [place] [facility] [address] [id number] [place] [address]- 2032 Jan, [facility] [place] [facility] [address] [id number] [place] [address]- 0788 Dec, 2014 [facility] [place] [facility] [address] [id number] [address]- 0702 Dec, 2014 [facility] [place] [facility] [address] [id number] [place] 5945 Dec, [facility] [place] [facility] [address] [id number] [place] [address]- 3452 Dec, 2014 [facility] [place] [facility] [address] [id number] [place] 7415 Nov, [facility] [place] [facility] [address] [id number], [place] [address]- 6892 Nov, [facility] [address] [id number] [place] [address]- 4770 Nov, [facility] [place] [facility] [address] [id number] [place] [address]- 2437 Nov, [facility] [place] [facility] [address] [id number] [place] [address]- 4288 Oct, [facility] [place] [facility] [address] [id number] [place] [address]- 8487 Oct, [facility] [place] [facility] [address] [id number] [place] [address]- 9507 Oct, [facility] [place] [facility] [address] [id number] [place] [address]- 9494 Oct, [facility] [place] [facility] [address] [id number] [place] [address] Oct, [facility] [place] [facility] [address] [id number] [place] [address] Oct, [facility] [place] [facility] [address] [id number] [place] [address] Oct, [facility] [place] [facility] [address] [id number] [place] [address] Oct, [facility] [place] [facility] [address] [id number] [place] [address] Oct, [facility] [place] [facility] [address] [id number] [place] [address] Oct, [facility] [place] [facility] [address] [id number] [place] [address] Oct, [facility] [place] [facility] [address] [id number] [place] [address] Oct, [facility] [place] [facility] [address] [id number] [place] [address] Oct, [facility] [place] [facility] [address] [id number] [place] [address] Oct, [facility] [place] [facility] [address] [id number] [place] [address] Oct, [facility] [place] [facility] [address] [id number] [place] [address] Oct, [facility] [place] [facility] [address] [id number] [place] [address] Sep, [facility] [place] [facility] [address] [id number] [place] [address] Sep, [facility] [place] [facility] [address] [id number] [place] [address] Sep, [facility] [place] [facility] [address] [id number] [place] [address] Sep, [facility] [place] [facility] [address] [id number] [place] [address] Sep, [facility] [place] [facility] [address] [id number] [place] [address] Sep, [facility] [place] [facility] [address] [id number] [place] [address] Sep, [facility] [place] [facility] [address] [id number] [place] [address] Sep, [facility] [place] [facility] [address] [id number] [place] [address] Sep, [facility] [place] [facility] [address] [id number] [place] [address] 8398 Sep, [facility] [place] [facility] [address] [id number] [place] [address] 1058 Aug, [facility] [place] [facility] [address] [id number] [place] [address] 1357 Aug, [facility] [place] [facility] [address] [id number] [place] [address] Aug, [facility] [place] [facility] [address] [id number] [place] [address]- 0412 14 Aug, 2014 [facility] [place] [facility] [address] [id number] [place] [address] 5250 Aug, [facility] [place] [facility] [address] [id number] [place] [address] 9078 Aug, [facility] [place] [facility] [address] [id number] [place] [address]- 5979 Aug, [facility] [place] [facility] [address] [id number] [place] [address]- 0703 Aug, [facility] [place] [facility] [address] [id number] [place] [address]- 7637 29 Jul, 2014 [facility] [place] [facility] [address] [id number] [place] [address]- 6400 Jul, [facility] [place] [facility] [address] [id number] [place] [address]- 2827 05 Jul, 2014 [facility] [place] [facility] [address] [id number] [place] [address]- 4613 05 Jul, 2014 [facility] [place] [facility] [address] [id number] [place] [address]- 5089 05 Jul, 2014 [facility] [place] [facility] [address] [id number] [place] [address]- 1641 Jul, [facility] [place] [facility] [address] [id number], [place] [address] 9028 Jun, [facility] [place] [facility] [address] [id number] [place] [address]- 5642 Jun, [facility] [place] [facility] [address] [id number] [place] [address]- 9008 May, [facility] [place] [facility] [address] [id number] [place] [address]- 1144 May, [facility] [place] [facility] [address] [id number] [place] [address]- 8046 May, [facility] [place] [facility] [address] [id number] [place] [address]- 4937 May, [facility] [place] [facility] [address] [id number] [place] [address]- 2720 May, [facility] [place] [facility] [address] [id number] [place] [address]- 9284 May, [facility] [place] [facility] [address] [id number] [place] [address]- 5062 May, [facility] [place] [facility] [address] [id number] [place] [address]- 9063 May, [facility] [place] [facility] [address] [id number] [place] [address]- 4116 Apr, [facility] [place] [facility] [address] [id number] [place] [address]- 8706 Apr, [facility] [place] [facility] [address] [id number] [place] [address]- 5493 March, [facility] [place] [facility] [address] [id number] [place] [address]- 5106 March, [facility] [place] [facility] [address] [id number] [place] [address]- 4266 Feb, [facility] [place] [facility] [address] [id number] [place] [address]- 9804 Feb, [facility] [place] [facility] [address] [id number] [place] [address]- 2932 Feb, [facility] [place] [facility] [address] [id number] [place] [address]- 2660 Feb, [facility] [place] [facility] [address] [id number] [place] [address]- 5225 Feb, [facility] [place] [facility] [address] [id number] [place] [address]- 3622 Feb, [facility] [place] [facility] [address] [id number] [place] [address]- 4474 Feb, [facility] [place] [facility] [address] [id number] [place] [address]- 8560 Feb, [facility] [place] [facility] [address] [id number] [place] [address]- 6919 Feb, [facility] [place] [facility] [address] [id number] [place] [address]- 6471 Feb, [facility] [place] [facility] [address] [id number] [place] [address]- 8129 Jan, [facility] [place] [facility] [address] [id number] [place] [address]- 5736 Jan, [facility] [place] [facility] [address] [facility] [id number] [place] [address]- 7944 Jan, [facility] [place] [facility] [address] [id number] [place] [address]- 7614 Jan, [facility] [place] [facility] [address] [id number] [place] [address]- 6871 Jan, [facility] [place] [facility] [address] [id number] [place] [address]- 9505 Dec, [facility] [place] [facility] [address] [facility] [id number] [place] [address]- 0424 Dec, [facility] [place] [facility] [address] [id number], [place] [address]- 8913 Dec, [facility] [place] [facility] [address] [id number] [place] [address]- 4477 Dec, [facility] [place] [facility] [address] [id number] [place] [address]- 1561 Dec, [facility] [place] [facility] [address] [id number] [place] [address] Dec, [facility] [place] [facility] [address] [id number], [place] [address] 6163 Nov, [facility] [address] [id number] [place] [address]- 0337 Nov, [facility] [place] [facility] [address] [id number] [place] [address]- 2889 Nov, [facility] [address] [facility] [id number] [place] [address]- 9672 Nov, [facility] [place] [facility] [address] [id number] [place] [address]- 0378 Nov, [facility] [address] [id number] [place] [address]- 4770 Nov, [facility] [address] [id number] [place] [address]- 7373 Nov, [facility] [address] [facility] [id number], [place] [address]- 2365 Nov, [facility] [place] [facility] [address] [id number] [place] [address]- 1742 Oct, [facility] [address] [id number] [place] [address]- 3274 Oct, [facility] [place] [facility] [address] [facility] [id number] [place] [address]- 9324 Oct, [facility] [place] [facility] [address] [id number], [place] [address]- 4519 Oct, [facility] [place] [facility] [address] [id number], [place] [address]- 0055 Oct, [facility] [place] [facility] [address] [id number], [place] [address]- 4693 Oct, [facility] [place] [facility] [address] [facility] [id number], [place] [address]- 5310 Oct, [facility] [place] [facility] [address] [facility] [id number], [place] [address]- 7099 Oct, [facility] [place] [facility] [address] [id number] [place] [address]- 4498 Sep, [facility] [place] [facility] [address] [id number] [place] [address] Sep, [facility] [place] [facility] [address] [id number] [place] [address]- 1630 Sep, [facility] [place] [facility] [address] [id number] [place] [address]- 1386 14 Sep, 2013 [facility] [place] [facility] [address] [id number] [place] [address]- 5512 Sep, [facility] [place] [facility] [address] [id number] [place] [address]- 7057 Sep, [facility] [place] [facility] [address] [id number] [place] [address]- 8512 Sep, [facility] [place] [facility] [address] [id number] [place] [address]- 4678 Sep, [facility] [place] [facility] [address] [id number] [place] [address]- 3056 Aug, [facility] [place] [facility] [address] [id number] [place] [address]- 4745 Aug, [facility] [place] [facility] [address] [id number] [place] [address] Aug, [facility] [place] [facility] [address] [id number] [place] [address]- 4988 Jul, [facility] [place] [facility] [address] [id number] [place] [address]- 5054 Jun, [facility] [place] [facility] [address] [id number] [place] [address]- 7895 Jun, [facility] [place] [facility] [address] [id number] [place] [address]- 8656 Jun, [facility] [place] [facility] [address] [id number] [place] [address]- 2224 Jun, [facility] [address] [id number] [place] [address]- 4473 Jun, [facility] [place] [facility] [address] [id number] [place] [address]- 2311 May, [facility] [place] [facility] [address] [id number] [place] [address]- 2670 May, [facility] [address] [id number] [place] [address]- 3738 Apr, [facility] [address] [id number] [place] [address]- 3125 Apr, [facility] [address] [id number] [place] [address]- 9657 March, [facility] [address] [id number] [place] [address]- 9353 March, [facility] [place] [facility] [address] [id number] [place] [address]- 4625 March, [facility] [address] [id number] [place] [address]- 5188 March, [facility] [address] [id number] [place] [address]- 2772 March, [facility] [address] [id number] [place] [address]- 5242 Feb, [facility] [place] [facility] [address] [id number], [place] [address]- 0327 Feb, [facility] [place] [facility] [address] [id number] [place] [address]- 2133 Feb, [facility] [place] [facility] [address] [id number] [place] [address]- 7873 Jan, [facility] [place] [facility] [address] [id number] [place] [address]- 6012 Dec, [facility] [place] [facility] [address] [id number] [place] [address]- 5641 27 Dec, 2012 [facility] [address] [id number] [place] [address]- 3476 18 Dec, 2012 [facility] [address] [id number] [place] [address] 2546 Dec, [facility] [address] [id number] [place] [address]- 8291 28 Nov, 2012 [facility] [address] [id number] [place] [address]- 4138 Nov, [facility] [address] [id number] [place] [address]- 3963 Nov, [facility] [address] [id number] [place] [address]- 7129 Nov, [facility] [address] [id number] [place] [address]- 9989 Oct, [facility] [address] [id number] [place] [address]- 7766 Oct, [facility] [address] [id number] [place] [address]- 8410 Oct, [facility] [address] [id number] [place] [address]- 9650 06 Oct, 2012 [facility] [address] [id number] [place] [address]- 7449 14 Sep, 2012 [facility] [address] [id number] [place] [address]- 6096 14 Sep, 2012 [facility] [place] [facility] [address] [id number] [place] [address]- 2137 13 Sep, 2012 [facility] [address] [id number] [place] [address]- 1586 13 Sep, 2012 [facility] [address] [id number] [place] [address]- 7117 Sep, [facility] [place] [facility] [address] [id number] [place] [address]- 1556 Sep, [facility] [place] [facility] [address] [id number] [place] [address]- 3156 Aug, [facility] [place] [facility] [address] [id number] [place] [address]- 2546 Aug, [facility] [place] [facility] [address] [id number] [place] [address]- 2546 Aug, [facility] [place] [facility] [address] [id number] [place] [address]- 6426 Jul, [facility] [place] [facility] [address] [id number] [place] [address]- 1066 Jul, [facility] [place] [facility] [address] [id number] [place] [address]- 2546 Jun, [facility] [place] [facility] [address] [id number] [place] [address]- 9826 May, [facility] [place] [facility] [address] [id number] [place] [address]- 6699 May, [facility] [place] [facility] [address] [facility] [id number], [place] [address]- 7476 Apr, [facility] [place] [facility] [address] [id number], [place] [address]- 2546 Apr, [facility] [place] [facility] [address] [id number], [place] [address]- 2546 March, [facility] [place] [facility] [address] [id number] [place] [address]- 2546 March, [facility] [place] [facility] [address] [id number], [place] [address]- 3806 Feb, [facility] [place] [facility] [address] [id number], [place] [address]- 2546 Feb, [facility] [place] [facility] [address] [id number], [place] [address]- 1195 09 Feb, 2012 [facility] [address] [id number] [place] [address]- 5416 06 Feb, 2012 [facility] [place] [facility] [address] [id number] [place] [address]- 6986 15 Jan, 2012 [facility] [place] [facility] [address] [facility] [id number] [place] [address]- 5006 Jan, [facility] [place] [facility] [address] [id number] [place] [address]- 9373 29 Dec, 2011 [facility] [place] [facility] [address] [id number] [place] [address]- 2456 28 Dec, 2011 [facility] [place] [facility] [address] [id number] [place] [address]- 9376 26 Dec, 2011 [facility] [place] [facility] [address] [id number] [place] [address]- 8786 23 Dec, 2011 [facility] [place] [facility] [address] [id number] [place] [address]- 3615 20 Dec, 2011 [facility] [place] [facility] [address] [facility] [id number] [place] [address]- 5430 15 Dec, 2011 [facility] [place] [facility] [address] [facility] [id number] [place] [address]- 2713 10 Dec, 2011 [facility] [place] [facility] [address] [facility] [id number] [place] [address] 2546 Dec, [facility] [place] [facility] [address] [facility] [id number] [place] [address] 2546 08 Dec, 2011 [facility] [place] [facility] [address] [id number] [place] [address]- 4916 07 Dec, 2011 [facility] [place] [facility] [address] [facility] [id number] [place] [address] 2546 02 Dec, 2011 [facility] [place] [facility] [address] [facility] [id number] [place] [address]- 2541 Dec, [facility] [place] [facility] [address] [id number] [place] [address]- 9104 Dec, [facility] [place] [facility] [address] [id number] [place] [address]- 4516 Nov, [facility] [place] [facility] [address] [id number] [place] [address]- 6093 Nov, [facility] [place] [facility] [address] [id number] [place] [address]- 3921 Nov, [facility] [place] [facility] [address] [id number] [place] [address]- 7493 Nov, [facility] [place] [facility] [address] [id number] [place] [address]- 0917 Nov, [facility] [place] [facility] [address] [id number] [place] [address]- 1556 Nov, [facility] [place] [facility] [address] [id number] [place] [address]- 6531 Oct, [facility] [place] [facility] [address] [id number] [place] [address]- 4537 Oct, [facility] [place] [facility] [address] [id number] [place] [address]- 9837 Sep, [facility] [place] [facility] [address] [id number], [place] [address]- 2972 Sep, [facility] [place] [facility] [address] [id number], [place] [address]- 9907 Sep, [facility] [place] [facility] [address] [id number] [place] [address]- 3636 Sep, [facility] [place] [facility] [address] [id number], [place] [address]- 1418 Sep, [facility] [place] [facility] [address] [id number] [place] [address]- 2480 March, [facility] [place] [facility] [address] [id number], [place] [address]- 8310 Oct, [facility] [address] [facility] [id number], [place] [address]- 3108 Oct, [facility] [address] [facility] [id number], [place] [address]- 5856 Oct, [facility] [address] [facility] [id number], [place] [address]- 2506 Sep, [facility] [address] [facility] [id number], [place] [address]- 0642 Sep, [facility] [id number], [place] [address]- 2254 Sep, [facility] [address] [facility] [id number], [place] [address]- 5175 Sep, [facility] [id number], [place] [address]- 7063 Aug, [facility] [id number], [place] [address]- 7481 Oct, [facility] [id number], [place] [address]- 5651 Oct, [facility] [address] [id number], [place] [address]- 2643 May, IMMUNIZATIONS No Known Immunizations SOCIAL HISTORY [...]
--- OUTSIDE RECORDS SUMMARY | 2018-12-11 10:33 | XMS REPORT ---
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 Name Role Phone SANJEEV PHELPS Unavailable PROBLEMS Type Condition ICD9-CM Code TDW06-MM Code Onset Dates Condition Status SNOMED Code Problem Anxiety F41.9 Active 40223194 Problem Unspecified episodic mood disorder F39 Active 289305003 Problem Unspecified personality disorder F60.9 Active 75577715 Problem Anxiety disorder, unspecified F41.9 Active [id number] ALLERGIES No Information SOCIAL HISTORY Never Assessed PLAN OF CARE Activity Details Follow Up 2 Weeks Reason:BH F/U VITAL SIGNS MEDICATIONS Unknown Medications RESULTS No Results PROCEDURES Procedure Date Ordered Result Body Site Psychotherapy, patient &/family, 45 minutes, established patient January 11, 2017 IMMUNIZATIONS No Known Immunizations MEDICAL (GENERAL) HISTORY Type Description Date Medical History hypertension Medical History panic attacks Surgical History cholecystectomy 2008 Hospitalization History surgery
--- OUTSIDE RECORDS SUMMARY | 2018-12-11 10:33 | XMS REPORT ---
Author Author LEIDA ANDINO Organization [facility] Address [address] [place] [address] Care Team Providers Care Conveyor Monitor Name Role Phone LEIDA ANDINO Unavailable PROBLEMS Type Condition ICD9-CM Code CYT61-GU Code Onset Dates Condition Status SNOMED Code Problem Stress incontinence of urine N39.3 Active 93463829 Problem Anxiety F41.9 Active 64222799 Problem Anxiety disorder, unspecified F41.9 Active 863810154 Problem Unspecified episodic mood disorder F39 Active 908388383 Problem Unspecified personality disorder F60.9 Active [id number] ALLERGIES No Information ENCOUNTERS Encounter Location Date Diagnosis [place] [id number] [place] [address] 30590- 5183 Feb, [place] [id number] [place] [address] 93403- 2346 Feb, Unspecified episodic mood disorder F39 ; Anxiety disorder, unspecified F41.9 and Unspecified personality disorder F60.9 [place] [id number] [place] [address] 53956- 8449 Feb, Anxiety disorder, unspecified F41.9 [place] [id number] [place] [address] 68340- 9175 Jan, Unspecified episodic mood disorder F39 ; Anxiety disorder, unspecified F41.9 and Unspecified personality disorder F60.9 [place] [id number] [place] [address] 52240- 2224 Jan, Anxiety F41.9 [place] [id number] [place] [address] 79563- 4799 Jan, Anxiety disorder, unspecified F41.9 [place] [id number] [place] [address] 44125- 0954 Dec, Unspecified episodic mood disorder F39 ; Anxiety disorder, unspecified F41.9 and Unspecified personality disorder F60.9 [facility] [id number] [place] [address] 41273- 3291 Dec, Anxiety F41.9 [facility] [id number] [address] 7528 Dec, Anxiety disorder, unspecified F41.9 [facility] [id number] [place] [address] 40944- 8855 Dec, Unspecified episodic mood disorder F39 ; Anxiety disorder, unspecified F41.9 and Unspecified personality disorder F60.9 [facility] [id number] [place] [address] 06336- 0605 Nov, [facility] [id number] [place] [address] 67782- 2361 Nov, [facility] [id number] [place] [address] 28384- 1940 Nov, Unspecified episodic mood disorder F39 ; Anxiety disorder, unspecified F41.9 and Unspecified personality disorder F60.9 [facility] [id number] [place] [address] 20003- 5872 Nov, Anxiety disorder, unspecified F41.9 [facility] [id number] [place] [address] 98768- 7274 Oct, Unspecified episodic mood disorder F39 ; Anxiety disorder, unspecified F41.9 and Unspecified personality disorder F60.9 [facility] [id number] [place] [address] 19377- 0933 Oct, Vaginal yeast infection B37.3 [facility] [id number] [place] [address] 60445- 8338 Oct, [facility] [id number] [place] [address] 12740- 0371 Oct, Anxiety disorder, unspecified F41.9 [place] [id number] [place] [address] 75168- 6592 Oct, Routine gynecological examination Z01.419 ; Screening for breast cancer Z12.31 and Vaginal yeast infection B37.3 [place] [id number] [place] [address] 20786- 1503 Sep, Unspecified episodic mood disorder F39 ; Anxiety disorder, unspecified F41.9 and Unspecified personality disorder F60.9 [place] [id number] [place] [address] 37958- 5502 Sep, [place] [address] 44957- 4431 Sep, Anxiety disorder, unspecified F41.9 [place] [id number] [place] [address] 78041- 7285 Sep, Bronchitis J40 and Stress incontinence of urine N39.3 [place] [id number] [place] [address] 90995- 7526 Sep, Stress incontinence of urine N39.3 ; Bronchitis J40 and Anxiety F41.9 [place] [id number] [place] [address] 42645- 9878 Sep, [place] [id number] [place] [address] 11871- 0173 Sep, Unspecified episodic mood disorder F39 ; Anxiety disorder, unspecified F41.9 and Unspecified personality disorder F60.9 [place] [id number] [place] [address] 92579- 8224 Aug, Anxiety F41.9 ; Stress incontinence of urine N39.3 and Encounter for immunization Z23 [place] [id number] [place] [address] 90886- 3235 Aug, Anxiety disorder, unspecified F41.9 [place] [id number] [place] [address] 15509- 4786 Jul, Unspecified episodic mood disorder F39 ; Anxiety disorder, unspecified F41.9 and Unspecified personality disorder F60.9 [facility] [address] [address]- 4058 Jul, [facility] [id number] [address]- 7928 Jul, Unspecified episodic mood disorder F39 ; Anxiety disorder, unspecified F41.9 and Unspecified personality disorder F60.9 [facility] [id number] [address]- 4026 Jul, Anxiety disorder, unspecified F41.9 [facility] [id number] [place] [address] 89019- 9800 Jun, Unspecified episodic mood disorder F39 ; Anxiety disorder, unspecified F41.9 and Unspecified personality disorder F60.9 [facility] [id number] [place] [address] 96912- 6592 Jun, Anxiety disorder, unspecified F41.9 [facility] [id number] [place] [address] 38645- 0639 Jun, Unspecified episodic mood disorder F39 ; Anxiety disorder, unspecified F41.9 and Unspecified personality disorder F60.9 [facility] [address] [address]- 8523 Jun, [facility] [id number] [place] [address] 74575- 4238 May, Anxiety disorder, unspecified F41.9 [facility] [id number] [address]- 4360 May, Unspecified episodic mood disorder F39 ; Anxiety disorder, unspecified F41.9 and Unspecified personality disorder F60.9 [facility] [id number] [address]- 2985 Apr, Anxiety disorder, unspecified F41.9 [facility] [address] [address]- 3683 March, Unspecified episodic mood disorder F39 ; Anxiety disorder, unspecified F41.9 and Unspecified personality disorder F60.9 [facility] [id number] [place] [address] 97487- 1179 March, Bronchitis J40 [facility] [id number] [place] [address] 38551- 1076 March, Unspecified episodic mood disorder F39 ; Anxiety disorder, unspecified F41.9 and Unspecified personality disorder F60.9 [facility] [id number] [place] [address] 67595- 9284 Feb, [facility] [id number] [place] [address] 77047- 1290 Feb, Unspecified episodic mood disorder F39 ; Anxiety disorder, unspecified F41.9 and Unspecified personality disorder F60.9 [facility] [id number] [place] [address] 03987- 4279 Feb, Bronchitis J40 [facility] [id number] [place] [address] 31522- 1877 Feb, Unspecified episodic mood disorder F39 ; Anxiety disorder, unspecified F41.9 and Unspecified personality disorder F60.9 [facility] [address] [address]- 2841 Jan, Unspecified episodic mood disorder F39 ; Anxiety disorder, unspecified F41.9 and Unspecified personality disorder F60.9 [facility] [id number] [place] [address] 51163- 4255 Jan, Bronchitis J40 [facility] [id number] [place] [address] 45543- 0352 Jan, Unspecified episodic mood disorder F39 ; Anxiety disorder, unspecified F41.9 and Unspecified personality disorder F60.9 [facility] [id number] [place] [address] 73118- 1719 Dec, Anxiety F41.9 [facility] [id number] [address]- 7643 Dec, Unspecified episodic mood disorder F39 ; Anxiety disorder, unspecified F41.9 and Unspecified personality disorder F60.9 [facility] [address] [id number] [address] Dec, [facility] [id number] [place] [address] 45409- 0815 Dec, Unspecified episodic mood disorder F39 ; Anxiety disorder, unspecified F41.9 and Unspecified personality disorder F60.9 [facility] [id number] [place] [address] 81484- 1205 Nov, [facility] [address] [address]- 3569 Oct, Unspecified episodic mood disorder F39 ; Anxiety disorder, unspecified F41.9 and Unspecified personality disorder F60.9 [facility] [address] [address]- 4130 Oct, [facility] [id number] [address] Oct, Acute upper respiratory infection, unspecified J06.9 ; Other viral agents as the cause of diseases classified elsewhere B97.89 and Cough R05 [facility] [address] [address]- 0336 Aug, Unspecified episodic mood disorder F39 ; Anxiety disorder, unspecified F41.9 and Unspecified personality disorder F60.9 [facility] [address] [address]- 3940 Aug, [facility] [id number] [address]- 3734 Aug, [facility] [address] [address]- 4119 Aug, [facility] [id number] [address]- 7142 Aug, Visit for TB skin test Z11.1 [facility] [id number] [address]- 2842 Jul, [facility] [id number] [address]- 2353 Jul, [facility] [id number] [address]- 6575 Jul, [facility] [id number] [address]- 1587 Jul, [facility] [id number] [address]- 9762 Jul, [facility] [address] [address]- 8158 Jul, Unspecified episodic mood disorder F39 ; Anxiety disorder, unspecified F41.9 and Unspecified personality disorder F60.9 [facility] [address] [address]- 7251 Jun, [facility] [address] [address]- 3385 Jun, Unspecified episodic mood disorder F39 ; Anxiety disorder, unspecified F41.9 and Unspecified personality disorder F60.9 [facility] [address] [address]- 3553 Jun, [facility] [address] [address]- 8406 May, Unspecified episodic mood disorder F39 ; Anxiety disorder, unspecified F41.9 and Unspecified personality disorder F60.9 [facility] [id number] [address]- 0007 May, [facility] [id number] [address]- 1943 May, [facility] [id number] [address]- 2375 May, Edema, unspecified R60.9 [facility] [id number] [address]- 5898 Apr, [facility] [id number] [place] [address] 66213- 3732 Apr, Unspecified episodic mood disorder F39 ; Anxiety disorder, unspecified F41.9 and Unspecified personality disorder F60.9 [facility] [id number] [place] [address] 05082- 2957 Apr, Anxiety F41.9 [facility] [id number] [place] [address] 13933- 9289 March, Unspecified episodic mood disorder F39 ; Anxiety disorder, unspecified F41.9 and Unspecified personality disorder F60.9 [place] [id number] [place] [address] 08269- 2797 March, Unspecified episodic mood disorder F39 ; Anxiety disorder, unspecified F41.9 and Unspecified personality disorder F60.9 [place] [address] [address]- 7278 Feb, Anxiety F41.9 [facility] [address] [address]- 3734 Feb, Unspecified episodic mood disorder F39 ; Anxiety disorder, unspecified F41.9 and Unspecified personality disorder F60.9 [facility] [address] [address]- 7219 Jan, Unspecified episodic mood disorder F39 ; Anxiety disorder, unspecified F41.9 and Unspecified personality disorder F60.9 [facility] [id number] [address]- 7179 Jan, Unspecified episodic mood disorder F39 ; Anxiety disorder, unspecified F41.9 and Unspecified personality disorder F60.9 [facility] [address] [address]- 2135 Jan, Edema, unspecified R60.9 [facility] [id number] [place] [address] 12773- 3789 Dec, [facility] [id number] [place] [address] 36974- 4506 Dec, [facility] [id number] [place] [address] 07780- 3785 Dec, [facility] [id number] [place] [address] 42319- 9744 Dec, Unspecified episodic mood disorder F39 ; Anxiety disorder, unspecified F41.9 and Unspecified personality disorder F60.9 [place] [id number] [place] [address] 57559- 5351 Nov, [facility] [id number] [place] [address] 50810- 3342 Nov, Unspecified episodic mood disorder F39 ; Anxiety disorder, unspecified F41.9 and Unspecified personality disorder F60.9 [place] [id number] [place] [address] 23165- 6943 Oct, Unspecified episodic mood disorder F39 ; Anxiety disorder, unspecified F41.9 and Unspecified personality disorder F60.9 [place] [address] [place] [address] 95245- 9190 Oct, Unspecified episodic mood disorder F39 ; Anxiety disorder, unspecified F41.9 and Unspecified personality disorder F60.9 [place] [id number] [place] [address] 45196- 5504 Sep, Unspecified episodic mood disorder F39 ; Anxiety disorder, unspecified F41.9 and Unspecified personality disorder F60.9 [facility] [address] [address]- 9332 Sep, Encounter for immunization Z23 [facility] [address] [address]- 3210 Sep, Edema of left lower extremity R60.0 [facility] [address] [address]- 0279 Aug, Unspecified episodic mood disorder F39 ; Anxiety disorder, unspecified F41.9 and Unspecified personality disorder F60.9 [facility] [id number] [place] [address] 17438- 1780 Aug, [facility] [address] [place] [address] 32994- 7051 Aug, Edema of left lower extremity R60.0 [facility] [id number] [place] [address] 56021- 0525 Aug, [facility] [address] [address]- 0567 Aug, Unspecified episodic mood disorder F39 ; Anxiety disorder, unspecified F41.9 and Unspecified personality disorder F60.9 [facility] [address] [address]- 5305 Jul, Unspecified episodic mood disorder 296.90 ; Anxiety disorder , unspecified 300.00 and Unspecified personality disorder 301.9 [facility] [address] [address]- 8462 Jul, Unspecified episodic mood disorder 296.90 ; Anxiety disorder , unspecified 300.00 and Unspecified personality disorder 301.9 [facility] [address] [address]- 6327 Jul, [facility] [address] [address]- 9480 Jun, Unspecified episodic mood disorder 296.90 ; Anxiety disorder , unspecified 300.00 and Unspecified personality disorder 301.9 [facility] [address] [address]- 6369 May, Unspecified episodic mood disorder 296.90 ; Anxiety disorder , unspecified 300.00 and Unspecified personality disorder 301.9 [facility] [address] [address]- 9333 May, Anxiety disorder, unspecified 300.00 [facility] [id number] [place] [address] 45332- 9708 May, Anxiety disorder, unspecified 300.00 and Edema 782.3 [facility] [id number] [place] [address] 93528- 0290 May, Unspecified episodic mood disorder 296.90 ; Anxiety disorder , unspecified 300.00 and Unspecified personality disorder 301.9 [facility] [id number] [place] [address] 06961- 0688 Apr, [facility] [id number] [place] [address] 61273- 4389 Apr, Unspecified episodic mood disorder 296.90 ; Anxiety disorder , unspecified 300.00 and Personality disorder, unspecified 301.9 [facility] [id number] [place] [address] 41062- 1689 Apr, Unspecified episodic mood disorder 296.90 ; Anxiety disorder , unspecified 300.00 and Unspecified personality disorder 301.9 [facility] [address] [address]- 8305 March, [facility] [id number] [place] [address] 36388- 6556 March, Unspecified episodic mood disorder 296.90 ; Anxiety disorder , unspecified 300.00 and Unspecified personality disorder 301.9 [facility] [id number] [place] [address] 15988- 7746 March, Unspecified episodic mood disorder 296.90 ; Anxiety disorder 300.00 and Unspecified personality disorder 301.9 [facility] [address] [address]- 3866 March, [facility] [id number] [place] [address] 31591- 6116 March, [facility] [place] [facility] [address] [id number] [place] [address]- 8460 Feb, [facility] [place] [facility] [address] [id number] [place] [address]- 9586 Feb, [facility] [place] [facility] [address] [id number] [place] [address]- 3039 Feb, [facility] [place] [facility] [address] [id number] [place] [address]- 2301 Jan, [facility] [place] [facility] [address] [id number] [place] [address]- 1340 Jan, [facility] [place] [facility] [address] [id number] [place] [address]- 0729 Jan, [facility] [place] [facility] [address] [id number] [place] [address]- 7335 Jan, [facility] [place] [facility] [address] [id number] [place] [address]- 8416 Jan, [facility] [place] [facility] [address] [id number] [place] [address]- 2795 Jan, [facility] [place] [facility] [address] [id number] [place] [id number] Jan, [facility] [place] [facility] [address] [id number] [place] [address]- 1490 Jan, [facility] [place] [facility] [address] [id number] [address]- 3705 Jan, [facility] [place] [facility] [address] [id number] [place] [address]- 1585 Jan, [facility] [place] [facility] [address] [id number] [place] [address]- 2284 Jan, [facility] [place] [facility] [address] [id number] [place] [address]- 4625 Jan, [facility] [place] [facility] [address] [id number] [place] [address]- 1972 05 Jan, 2014 [facility] [place] [facility] [address] [id number] [place] [address]- 3384 Jan, 2014 [facility] [place] [facility] [address] [id number] [place] [address]- 5170 Jan, 2014 [facility] [place] [facility] [address] [id number] [place] [address]- 0383 Jan, 2014 [facility] [place] [facility] [address] [id number] [place] [address]- 9958 Dec, 2014 [facility] [place] [facility] [address] [id number] [place] [address]- 9203 Dec, 2014 [facility] [place] [facility] [address] [facility] [id number] [place] [address]- 2307 Dec, 2014 [facility] [place] [facility] [address] [id number] [place] [address]- 7804 Dec, 2014 [facility] [place] [facility] [address] [id number] [place] [address]- 9718 Nov, [facility] [place] [facility] [address] [id number] [place] [address]- 1876 Nov, [facility] [place] [facility] [address] [facility] [id number] [place] [address]- 1039 Nov, [facility] [place] [facility] [address] [id number] [place] [address]- 5639 Nov, [facility] [place] [facility] [address] [id number] [place] [address]- 1110 Oct, [facility] [place] [facility] [address] [id number] [place] [address]- 6934 Oct, [facility] [place] [facility] [address] [facility] [id number] [place] [address]- 4997 Oct, [facility] [place] [facility] [address] [id number] [place] [address]- 9986 Oct, [facility] [place] [facility] [address] [id number] [place] [address]- 0660 Oct, [facility] [place] [facility] [address] [id number] [place] [address]- 2796 Oct, [facility] [place] [facility] [address] [id number] [place] [address]- 8339 Oct, [facility] [place] [facility] [address] [id number] [place] [address] Oct, [facility] [place] [facility] [address] [id number] [place] [address] Oct, [facility] [place] [facility] [address] [id number] [place] [address] Oct, [facility] [place] [facility] [address] [id number] [place] [address] Oct, [facility] [place] [facility] [address] [id number] [place] [address] Oct, [facility] [place] [facility] [address] [id number] [place] [address] Oct, [facility] [place] [facility] [address] [id number] [place] [address] Oct, [facility] [place] [facility] [address] [id number] [place] [address] Oct, [facility] [place] [facility] [address] [id number] [place] [address] Oct, [facility] [place] [facility] [address] [id number] [place] [address] Sep, [facility] [place] [facility] [address] [id number] [place] [address] Sep, [facility] [place] [facility] [address] [id number] [place] [address] Sep, [facility] [place] [facility] [address] [id number] [place] [address] 24 Sep, 2014 [facility] [place] [facility] [address] [id number] [place] [address] Sep, [facility] [place] [facility] [address] [id number] [place] [address] Sep, [facility] [place] [facility] [address] [id number] [place] [address] Sep, [facility] [place] [facility] [address] [id number] [place] [address] Sep, [facility] [place] [facility] [address] [id number] [place] [address] Sep, [facility] [place] [facility] [address] [id number] [place] [address] Sep, [facility] [place] [facility] [address] [id number] [place] [address] Aug, [facility] [place] [facility] [address] [id number] [place] [address] 30 Aug, 2014 [facility] [place] [facility] [address] [id number] [place] [address] Aug, [facility] [place] [facility] [address] [facility] [id number] [place] [address] Aug, [facility] [place] [facility] [address] [id number] [place] [address] Aug, [facility] [place] [facility] [address] [id number] [place] [address] Aug, [facility] [place] [facility] [address] [id number] [place] [address] 6964 Aug, [facility] [place] [facility] [address] [id number] [place] [address] Aug, [facility] [place] [facility] [address] [id number] [place] [address]40 29 Jul, 2014 [facility] [place] [facility] [address] [id number] [place] [address] Jul, [facility] [place] [facility] [address] [id number] [place] [address] 5570 Jul, [facility] [place] [facility] [address] [id number] [place] [address] 2279 Jul, [facility] [place] [facility] [address] [id number] [place] [address]- 0851 Jul, [facility] [place] [facility] [address] [id number] [place] [address] Jul, [facility] [place] [facility] [address] [id number] [place] [address] 0978 Jun, [facility] [place] [facility] [address] [id number] [place] [address] 6967 Jun, [facility] [place] [facility] [address] [id number] [place] [address]- 0009 May, [facility] [place] [facility] [address] [id number] [place] [address]- 7629 May, [facility] [place] [facility] [address] [id number] [place] [address]- 0298 May, [facility] [place] [facility] [address] [id number] [place] [address]- 9581 May, [facility] [place] [facility] [address] [id number] [place] [address]- 2087 May, [facility] [place] [facility] [address] [id number] [place] [address]- 4974 May, [facility] [place] [facility] [address] [id number] [place] [address]- 4497 May, [facility] [place] [facility] [address] [id number] [place] [address]- 7341 May, [facility] [place] [facility] [address] [id number] [place] [address]- 8060 Apr, [facility] [place] [facility] [address] [id number] [place] [address]- 5251 Apr, [facility] [place] [facility] [address] [id number] [place] [address]- 8203 March, [facility] [place] [facility] [address] [id number] [place] [address] 8408 March, [facility] [place] [facility] [address] [id number] [place] [address]- 7021 Feb, [facility] [place] [facility] [address] [id number] [place] [address]- 6855 Feb, [facility] [place] [facility] [address] [id number] [place] [address]- 9004 Feb, [facility] [place] [facility] [address] [id number] [place] [address]- 0556 Feb, [facility] [place] [facility] [address] [id number] [place] [address]- 3819 Feb, [facility] [place] [facility] [address] [id number] [place] [address]- 0238 Feb, [facility] [place] [facility] [address] [id number] [place] [address]- 7757 Feb, [facility] [place] [facility] [address] [id number] [place] [address]- 6225 Feb, [facility] [place] [facility] [address] [id number] [place] [address]- 6657 Feb, [facility] [place] [facility] [address] [id number] [place] [address]- 7282 Feb, [facility] [place] [facility] [address] [id number] [place] [address]- 9815 Jan, [facility] [place] [facility] [address] [id number] [place] [address]- 9853 Jan, [facility] [place] [facility] [address] [id number] [place] [address]- 3714 Jan, [facility] [place] [facility] [address] [id number] [place] [address]- 4533 Jan, [facility] [place] [facility] [address] [id number] [place] [address]- 9146 Jan, [facility] [place] [facility] [address] [id number] [place] [address]- 4470 Dec, [facility] [place] [facility] [address] [id number] [place] [address]- 3364 Dec, [facility] [place] [facility] [address] [id number] [place] [address]- 0249 Dec, [facility] [place] [facility] [address] [id number] [place] [address]- 6219 Dec, [facility] [place] [facility] [address] [id number] [place] [address]- 0869 Dec, [facility] [place] [facility] [address] [id number] [place] [address]- 8538 Dec, [facility] [place] [facility] [address] [id number] [place] [address]- 0473 Nov, [facility] [place] [facility] [address] [id number] [place] [address]- 9266 Nov, [facility] [place] [facility] [address] [id number] [place] [address]- 2063 Nov, [facility] [place] [facility] [address] [id number] [place] [address]- 2656 Nov, [facility] [place] [facility] [address] [id number] [place] [address]- 2675 Nov, [facility] [place] [facility] [address] [id number] [place] [address]- 6786 Nov, [facility] [place] [facility] [address] [id number] [place] [address]- 4276 Nov, [facility] [place] [facility] [address] [id number] [place] [address]- 5384 Nov, [facility] [place] [facility] [address] [id number] [place] [address]- 3793 Oct, [facility] [place] [facility] [address] [id number] [place] [address]- 8435 Oct, [facility] [place] [facility] [address] [id number] [place] [address]- 1140 Oct, [facility] [place] [facility] [address] [id number] [place] [address]- 0900 Oct, [facility] [place] [facility] [address] [id number] [place] [address]- 6947 Oct, [facility] [place] [facility] [address] [id number] [place] [address]- 9582 Oct, [facility] [place] [facility] [address] [id number] [place] [address]- 9732 Oct, [facility] [place] [facility] [address] [id number] [place] [address]- 2981 Oct, [facility] [place] [facility] [address] [id number] [place] [address]- 7365 Sep, [facility] [place] [facility] [address] [id number] [place] [address]- 6266 Sep, [facility] [place] [facility] [address] [id number] [place] [address]- 3685 Sep, [facility] [place] [facility] [address] [id number] [place] [address]- 5164 Sep, [facility] [place] [facility] [address] [id number] [place] [address]- 2961 Sep, [facility] [place] [facility] [address] [id number] [place] [address]- 1339 Sep, [facility] [place] [facility] [address] [id number] [place] [address]- 6061 Sep, [facility] [address] [id number] [place] [address]- 0894 Sep, [facility] [place] [facility] [address] [id number] [place] [address]- 1385 Aug, [facility] [place] [facility] [address] [id number] [place] [address]- 7092 Aug, [facility] [place] [facility] [address] [id number] [place] [address] 2541 Aug, [facility] [place] [facility] [address] [id number] [place] [address]- 3728 Jul, [facility] [place] [facility] [address] [id number] [place] [address]- 7887 Jun, [facility] [place] [facility] [address] [id number] [place] [address]- 0277 Jun, [facility] [place] [facility] [address] [id number] [place] [address]- 8354 Jun, [facility] [place] [facility] [address] [id number] [place] [address]- 0219 Jun, [facility] [place] [facility] [address] [id number] [place] [address]- 3169 Jun, [facility] [place] [facility] [address] [id number] [place] [address]- 6495 May, [facility] [place] [facility] [address] [id number] [place] [address]- 2541 May, [facility] [place] [facility] [address] [id number] [place] [address]- 6070 Apr, [facility] [place] [facility] [address] [id number] [place] [address]- 2546 Apr, [facility] [place] [facility] [address] [id number] [place] [address]- 4111 March, [facility] [address] [id number] [place] [address]- 4877 March, [facility] [address] [id number] [place] [address]- 1944 March, [facility] [address] [id number] [place] [address]- 2620 March, [facility] [address] [id number] [place] [address]- 7445 March, [facility] [address] [id number] [place] [address]- 6560 Feb, [facility] [address] [id number] [place] [address]- 9080 Feb, [facility] [address] [id number] [place] [address]- 6549 Feb, [facility] [address] [id number] [place] [address]- 5922 Jan, [facility] [address] [id number] [place] [address]- 1814 Dec, [facility] [address] [id number] [place] [address]- 0178 Dec, [facility] [address] [id number] [place] [address]- 7576 Dec, [facility] [address] [id number] [place] [address]- 6711 Dec, [facility] [place] [facility] [address] [id number] [place] [address]- 3103 Nov, [facility] [place] [facility] [address] [id number] [place] [address]- 2090 Nov, [facility] [place] [facility] [address] [id number] [place] [address]- 6036 Nov, [facility] [place] [facility] [address] [id number] [place] [address]- 8706 Nov, [facility] [place] [facility] [address] [id number] [place] [address]- 1377 Oct, [facility] [place] [facility] [address] [id number] [place] [address]- 8172 Oct, [facility] [place] [facility] [address] [id number] [place] [address]- 5769 Oct, [facility] [place] [facility] [address] [id number] [place] [address]- 4992 Oct, [facility] [place] [facility] [address] [id number] [place] [address]- 9331 Sep, [facility] [place] [facility] [address] [id number] [place] [address]- 9289 14 Sep, 2012 [facility] [place] [facility] [address] [id number] [place] [address]- 5218 Sep, [facility] [place] [facility] [address] [id number] [place] [address]- 1490 Sep, [facility] [place] [facility] [address] [id number] [place] [address]- 9704 Sep, [facility] [place] [facility] [address] [facility] [id number] [place] [address]- 5921 Sep, [facility] [place] [facility] [address] [id number] [place] [address]- 6440 Aug, [facility] [place] [facility] [address] [id number] [place] [address]- 5053 Aug, [facility] [place] [facility] [address] [id number] [place] [address]- 0143 Aug, [facility] [place] [facility] [address] [id number] [place] [address]- 6992 Jul, [facility] [place] [facility] [address] [facility] [id number] [place] [address]- 8289 04 Jul, 2012 [facility] [place] [facility] [address] [id number] [place] [address]- 7073 Jun, [facility] [place] [facility] [address] [id number] [place] [address]- 4632 May, [facility] [place] [facility] [address] [id number] [place] [address]- 4010 May, [facility] [place] [facility] [address] [id number] [place] [address]- 0963 Apr, [facility] [place] [facility] [address] [id number] [place] [address]- 3014 Apr, [facility] [place] [facility] [address] [id number] [place] [address]- 5710 March, [facility] [place] [facility] [address] [id number] [place] [address]- 8162 March, [facility] [place] [facility] [address] [id number] [place] [address]- 8241 Feb, [facility] [place] [facility] [address] [id number] [place] [address]- 1744 Feb, [facility] [place] [facility] [address] [id number] [place] [address]- 7619 Feb, [facility] [place] [facility] [address] [id number] [place] [address]- 5092 Feb, [facility] [place] [facility] [address] [id number] [place] [address]- 6721 Jan, [facility] [place] [facility] [address] [id number] [place] [address]- 2214 Jan, [facility] [place] [facility] [address] [id number] [place] [address]- 6481 Dec, [facility] [place] [facility] [address] [id number] [place] [address]- 1521 Dec, [facility] [place] [facility] [address] [id number] [place] [address]- 9319 26 Dec, 2011 [facility] [address] [id number] [place] [address]- 8106 Dec, [facility] [place] [facility] [address] [id number] [place] [address] 2546 20 Dec, 2011 [facility] [address] [id number] [place] [address]- 6016 15 Dec, 2011 [facility] [address] [id number] [place] [address]- 4726 10 Dec, 2011 [facility] [address] [id number] [place] [address]- 1716 09 Dec, 2011 [facility] [address] [id number] [place] [address]- 2546 08 Dec, 2011 [facility] [address] [id number] [place] [address]- 1364 07 Dec, 2011 [facility] [address] [id number] [place] [address]- 9852 02 Dec, 2011 [facility] [address] [id number] [place] [address]- 8245 02 Dec, 2011 [facility] [address] [id number] [place] [address]- 5143 02 Dec, 2011 [facility] [address] [id number] [place] [address] 2546 Nov, [facility] [address] [id number] [place] [address] 2543 Nov, [facility] [place] [facility] [address] [id number] [place] [address]- 9346 Nov, [facility] [place] [facility] [address] [id number] [place] [address]- 1056 Nov, [facility] [place] [facility] [address] [facility] [id number] [place] [address]- 5797 Nov, [facility] [address] [id number] [place] [address]- 8263 Nov, [facility] [place] [facility] [address] [id number] [place] [address]- 6728 Oct, [facility] [place] [facility] [address] [id number] [place] [address]- 4994 Oct, [facility] [place] [facility] [address] [id number] [place] [address]- 5771 Sep, [facility] [place] [facility] [address] [id number] [place] [address]- 6880 Sep, [facility] [place] [facility] [address] [id number] [place] [address]- 8694 Sep, [facility] [place] [facility] [address] [id number] [place] [address]- 1815 Sep, [facility] [place] [facility] [address] [id number] [place] [address]- 5102 Sep, [facility] [place] [facility] [address] [id number] [place] [address]- 6843 March, [facility] [place] [facility] [address] [id number] [place] [address]- 7336 Oct, [facility] [place] [facility] [address] [id number] [place] [address]- 8316 Oct, [facility] [place] [facility] [address] [id number] [place] [address]- 4940 Oct, [facility] [place] [facility] [address] [id number] [place] [address]- 5463 Sep, [facility] [place] [facility] [address] [id number] [place] [address]- 6126 Sep, [facility] [place] [facility] [address] [id number] [place] [address]- 1291 Sep, [facility] [place] [facility] [address] [id number] [place] [address]- 2546 Sep, [facility] [address] [facility] [id number] [place] [address]- 2546 Aug, [facility] [address] [id number] [place] [address]- 2546 Oct, [facility] [address] [facility] [id number] [place] [address]- 2546 Oct, [facility] [address] [facility] [id number] [place] [address]- 2546 May, IMMUNIZATIONS No Known Immunizations SOCIAL HISTORY Never Assessed REASON FOR VISIT Controlled Refill Request PLAN OF CARE VITAL SIGNS MEDICATIONS Medication [...]
--- OUTSIDE RECORDS SUMMARY | 2018-12-11 10:34 | XMS REPORT ---
Author Author LEIDA ANDINO Organization [facility] Address [address] [place] [address] Care Team Providers Care Fry Cook Name Role Phone LEIDA ANDINO Unavailable PROBLEMS Type Condition ICD9-CM Code AET99-IF Code Onset Dates Condition Status SNOMED Code Problem Stress incontinence of urine N39.3 Active 92955736 Problem Anxiety F41.9 Active 03461402 Problem Anxiety disorder, unspecified F41.9 Active 763029645 Problem Unspecified episodic mood disorder F39 Active 715502735 Problem Unspecified personality disorder F60.9 Active [id number] ALLERGIES No Information ENCOUNTERS Encounter Location Date Diagnosis [place] [id number] [place] [address] 04757- 7957 May, [facility] [id number] [place] [address] 44068- 6817 Apr, Anxiety disorder, unspecified F41.9 [place] [id number] [place] [address] 57523- 2380 Apr, Unspecified episodic mood disorder F39 ; Anxiety disorder, unspecified F41.9 and Unspecified personality disorder F60.9 [place] [id number] [place] [address] 17482- 9633 March, Anxiety disorder, unspecified F41.9 [place] [id number] [place] [address] 05529- 3564 March, Unspecified episodic mood disorder F39 ; Anxiety disorder, unspecified F41.9 and Unspecified personality disorder F60.9 [place] [id number] [place] [address] 22621- 1313 March, Anxiety disorder, unspecified F41.9 [place] [id number] [place] [address] 68547- 3600 Feb, Unspecified episodic mood disorder F39 ; Anxiety disorder, unspecified F41.9 and Unspecified personality disorder F60.9 [facility] [id number] [place] [address] 73622- 5525 Feb, Unspecified episodic mood disorder F39 ; Anxiety disorder, unspecified F41.9 and Unspecified personality disorder F60.9 [place] [id number] [place] [address] 52910- 6705 Feb, Anxiety disorder, unspecified F41.9 [facility] [id number] [place] [address] 52022- 0460 Jan, Unspecified episodic mood disorder F39 ; Anxiety disorder, unspecified F41.9 and Unspecified personality disorder F60.9 [place] [id number] [place] [address] 85781- 4004 Jan, Anxiety F41.9 [place] [id number] [place] [address] 20673- 6870 Jan, Anxiety disorder, unspecified F41.9 [place] [id number] [place] [address] 39741- 8513 Dec, Unspecified episodic mood disorder F39 ; Anxiety disorder, unspecified F41.9 and Unspecified personality disorder F60.9 [place] [id number] [place] [address] 83785- 6287 Dec, Anxiety F41.9 [facility] [id number] [place] [address] 83582- 7483 Dec, Anxiety disorder, unspecified F41.9 [facility] [id number] [place] [address] 92738- 2906 Dec, Unspecified episodic mood disorder F39 ; Anxiety disorder, unspecified F41.9 and Unspecified personality disorder F60.9 [place] [id number] [place] [address] 49636- 1232 Nov, [facility] [address] [address] 0909 Nov, [facility] [id number] [place] [address] 12704- 6804 Nov, Unspecified episodic mood disorder F39 ; Anxiety disorder, unspecified F41.9 and Unspecified personality disorder F60.9 [facility] [id number] [place] [address] 93012- 8931 Nov, Anxiety disorder, unspecified F41.9 [facility] [id number] [place] [address] 39413- 2992 Oct, Unspecified episodic mood disorder F39 ; Anxiety disorder, unspecified F41.9 and Unspecified personality disorder F60.9 [facility] [address] [place] [address] 4343 Oct, Vaginal yeast infection B37.3 [facility] [address] [address] 2832 Oct, [facility] [id number] [place] [address] 75423- 2014 Oct, Anxiety disorder, unspecified F41.9 [facility] [address] [place] [address]- 9364 Oct, Routine gynecological examination Z01.419 ; Screening for breast cancer Z12.31 and Vaginal yeast infection B37.3 [facility] [address] [place] [address] 6579 Sep, Unspecified episodic mood disorder F39 ; Anxiety disorder, unspecified F41.9 and Unspecified personality disorder F60.9 [facility] [address] [place] [address]- 4480 Sep, [facility] [address] [place] [address]- 6140 Sep, Anxiety disorder, unspecified F41.9 [facility] [id number] [place] [address] 36873- 3510 Sep, Bronchitis J40 and Stress incontinence of urine N39.3 [place] [address] 08437- 3443 Sep, Stress incontinence of urine N39.3 ; Bronchitis J40 and Anxiety F41.9 [place] [address] 71376- 0704 Sep, [place] [address] 67977- 3920 Sep, Unspecified episodic mood disorder F39 ; Anxiety disorder, unspecified F41.9 and Unspecified personality disorder F60.9 [place] [id number] [place] [address] 77666- 3579 Aug, Anxiety F41.9 ; Stress incontinence of urine N39.3 and Encounter for immunization Z23 [place] [address] 06486- 0967 Aug, Anxiety disorder, unspecified F41.9 [place] [address] 97601- 8507 Jul, Unspecified episodic mood disorder F39 ; Anxiety disorder, unspecified F41.9 and Unspecified personality disorder F60.9 [place] [id number] [place] [address] 40935- 3658 Jul, [place] [id number] [place] [address] 10547- 5633 Jul, Unspecified episodic mood disorder F39 ; Anxiety disorder, unspecified F41.9 and Unspecified personality disorder F60.9 [place] [id number] [place] [address] 07422- 6029 Jul, Anxiety disorder, unspecified F41.9 [place] [id number] [place] [address] 82016- 0478 Jun, Unspecified episodic mood disorder F39 ; Anxiety disorder, unspecified F41.9 and Unspecified personality disorder F60.9 [facility] [id number] [place] [address] 38292- 1594 Jun, Anxiety disorder, unspecified F41.9 [facility] [id number] [place] [address] 55674- 7073 Jun, Unspecified episodic mood disorder F39 ; Anxiety disorder, unspecified F41.9 and Unspecified personality disorder F60.9 [facility] [id number] [place] [address] 77953- 1285 Jun, [facility] [id number] [place] [address] 47521- 6168 May, Anxiety disorder, unspecified F41.9 [facility] [id number] [place] [address] 49866- 3492 May, Unspecified episodic mood disorder F39 ; Anxiety disorder, unspecified F41.9 and Unspecified personality disorder F60.9 [facility] [id number] [place] [address] 25791- 0532 Apr, Anxiety disorder, unspecified F41.9 [facility] [id number] [place] [address] 82730- 1659 March, Unspecified episodic mood disorder F39 ; Anxiety disorder, unspecified F41.9 and Unspecified personality disorder F60.9 [facility] [id number] [place] [address] 40969- 1323 March, Bronchitis J40 [facility] [id number] [place] [address] 70210- 5003 March, Unspecified episodic mood disorder F39 ; Anxiety disorder, unspecified F41.9 and Unspecified personality disorder F60.9 [facility] [address] [address]- 8342 Feb, [facility] [id number] [place] [address] 68758- 6569 Feb, Unspecified episodic mood disorder F39 ; Anxiety disorder, unspecified F41.9 and Unspecified personality disorder F60.9 [facility] [address], [place] [address]- 1172 Feb, Bronchitis J40 [facility] [address], [place] [address]- 8235 Feb, Unspecified episodic mood disorder F39 ; Anxiety disorder, unspecified F41.9 and Unspecified personality disorder F60.9 [facility] [address], [place] [address]- 3312 Jan, Unspecified episodic mood disorder F39 ; Anxiety disorder, unspecified F41.9 and Unspecified personality disorder F60.9 [facility] [address], [place] [address]- 0790 Jan, Bronchitis J40 [facility] [id number] [place] [address] 39566- 1713 Jan, Unspecified episodic mood disorder F39 ; Anxiety disorder, unspecified F41.9 and Unspecified personality disorder F60.9 [facility] [address], [place] [address]- 4466 Dec, Anxiety F41.9 [facility] [address], [place] [address]- 4799 Dec, Unspecified episodic mood disorder F39 ; Anxiety disorder, unspecified F41.9 and Unspecified personality disorder F60.9 [facility] [id number] [id number] Dec, [facility] [address], [place] [address]- 1000 Dec, Unspecified episodic mood disorder F39 ; Anxiety disorder, unspecified F41.9 and Unspecified personality disorder F60.9 [facility] [address], [place] [address]- 4200 Nov, [facility] [id number] [address]- 1782 Oct, Unspecified episodic mood disorder F39 ; Anxiety disorder, unspecified F41.9 and Unspecified personality disorder F60.9 [facility] [address], [place] [address]- 9773 Oct, [facility] [address] [place] [address] -[address]2 Oct, Acute upper respiratory infection, unspecified J06.9 ; Other viral agents as the cause of diseases classified elsewhere B97.89 and Cough R05 [facility] [id number] [place] [address] 60122- 9428 Aug, Unspecified episodic mood disorder F39 ; Anxiety disorder, unspecified F41.9 and Unspecified personality disorder F60.9 [facility] [id number] [address]- 0200 Aug, [facility] [id number] [place] [address] 76425- 8630 Aug, [facility] [id number] [place] [address] 90136- 8727 Aug, [facility] [id number] [place] [address] 90170- 3066 Aug, Visit for TB skin test Z11.1 [facility] [address], [place] [address]- 5438 Jul, [facility] [address], [place] [address]- 7743 Jul, [facility] [id number] [place] [address] 30518- 8809 Jul, [facility] [id number] [place] [address] 85565- 0903 Jul, [facility] [address], [place] [address]- 2289 Jul, [facility] [address], [place] [address]- 2588 Jul, Unspecified episodic mood disorder F39 ; Anxiety disorder, unspecified F41.9 and Unspecified personality disorder F60.9 [facility] [address] [facility] [id number] [address]- 3838 Jun, [facility] [address], [place] [address]- 2309 Jun, Unspecified episodic mood disorder F39 ; Anxiety disorder, unspecified F41.9 and Unspecified personality disorder F60.9 [facility] [id number] [address]- 1751 Jun, [facility] [address], [place] [address]- 3801 May, Unspecified episodic mood disorder F39 ; Anxiety disorder, unspecified F41.9 and Unspecified personality disorder F60.9 [facility] [address], [place] [address]- 7166 May, [facility] [address], [place] [address]- 5381 May, [facility] [address], [place] [address]- 7644 May, Edema, unspecified R60.9 [facility] [address], [place] [address]- 1973 Apr, [facility] [address], [place] [address]- 3801 Apr, Unspecified episodic mood disorder F39 ; Anxiety disorder, unspecified F41.9 and Unspecified personality disorder F60.9 [facility] [id number] [address]- 9844 Apr, Anxiety F41.9 [facility] [id number] [address]- 7681 March, Unspecified episodic mood disorder F39 ; Anxiety disorder, unspecified F41.9 and Unspecified personality disorder F60.9 [facility] [id number] [place] [address] 02854- 6917 March, Unspecified episodic mood disorder F39 ; Anxiety disorder, unspecified F41.9 and Unspecified personality disorder F60.9 [facility] [id number] [place] [address] 28347- 7480 Feb, Anxiety F41.9 [facility] [id number] [place] [address] 77686- 7060 Feb, Unspecified episodic mood disorder F39 ; Anxiety disorder, unspecified F41.9 and Unspecified personality disorder F60.9 [place] [id number] [place] [address] 85080- 6407 Jan, Unspecified episodic mood disorder F39 ; Anxiety disorder, unspecified F41.9 and Unspecified personality disorder F60.9 [place] [id number] [place] [address] 35820- 2873 Jan, Unspecified episodic mood disorder F39 ; Anxiety disorder, unspecified F41.9 and Unspecified personality disorder F60.9 [place] [id number] [place] [address] 07168- 4774 Jan, Edema, unspecified R60.9 [facility] [address], [place] [address]- 5253 Dec, [facility] [id number] [place] [address] 56325- 4471 Dec, [facility] [id number] [place] [address] 20750- 8291 Dec, [facility] [id number] [place] [address] 49145- 7162 Dec, Unspecified episodic mood disorder F39 ; Anxiety disorder, unspecified F41.9 and Unspecified personality disorder F60.9 [place] [id number] [address]- 3739 Nov, [facility] [id number] [place] [address] 87170- 5533 Nov, Unspecified episodic mood disorder F39 ; Anxiety disorder, unspecified F41.9 and Unspecified personality disorder F60.9 [facility] [id number] [place] [address] 84032- 1443 Oct, Unspecified episodic mood disorder F39 ; Anxiety disorder, unspecified F41.9 and Unspecified personality disorder F60.9 [facility] [id number] [place] [address] 29412- 3631 Oct, Unspecified episodic mood disorder F39 ; Anxiety disorder, unspecified F41.9 and Unspecified personality disorder F60.9 [place] [id number] [place] [address] 20527- 0648 Sep, Unspecified episodic mood disorder F39 ; Anxiety disorder, unspecified F41.9 and Unspecified personality disorder F60.9 [place] [id number] [place] [address] 56896- 3982 Sep, Encounter for immunization Z23 [facility] [id number] [place] [address] 37963- 0790 Sep, Edema of left lower extremity R60.0 [facility] [id number] [place] [address] 59970- 5941 Aug, Unspecified episodic mood disorder F39 ; Anxiety disorder, unspecified F41.9 and Unspecified personality disorder F60.9 [facility] [address], [place] [address]- 8388 Aug, [facility] [id number] [place] [address] 51467- 6045 Aug, Edema of left lower extremity R60.0 [facility] [address], [place] [address]- 0152 Aug, [facility] [address], [place] [address]- 8876 Aug, Unspecified episodic mood disorder F39 ; Anxiety disorder, unspecified F41.9 and Unspecified personality disorder F60.9 [facility] [address], [place] [address]- 6039 Jul, Unspecified episodic mood disorder 296.90 ; Anxiety disorder , unspecified 300.00 and Unspecified personality disorder 301.9 [facility] [id number] [place] [address] 63454- 2433 Jul, Unspecified episodic mood disorder 296.90 ; Anxiety disorder , unspecified 300.00 and Unspecified personality disorder 301.9 [facility] [id number] [place] [address] 45044- 4427 Jul, [facility] [id number] [place] [address] 83113- 6341 Jun, Unspecified episodic mood disorder 296.90 ; Anxiety disorder , unspecified 300.00 and Unspecified personality disorder 301.9 [facility] [id number] [place] [address] 60650- 0466 May, Unspecified episodic mood disorder 296.90 ; Anxiety disorder , unspecified 300.00 and Unspecified personality disorder 301.9 [facility] [address], [place] [address]- 6940 May, Anxiety disorder, unspecified 300.00 [facility] [id number] [place] [address] 65072- 2133 May, Anxiety disorder, unspecified 300.00 and Edema 782.3 [facility] [id number] [place] [address] 95127- 7945 May, Unspecified episodic mood disorder 296.90 ; Anxiety disorder , unspecified 300.00 and Unspecified personality disorder 301.9 [facility] [address], [place] [address]- 2436 Apr, [facility] [id number] [address]- 9593 Apr, Unspecified episodic mood disorder 296.90 ; Anxiety disorder , unspecified 300.00 and Personality disorder, unspecified 301.9 [facility] [address], [place] [address]- 5671 Apr, Unspecified episodic mood disorder 296.90 ; Anxiety disorder , unspecified 300.00 and Unspecified personality disorder 301.9 [facility] [id number] [place] [address] 90664- 5061 March, [facility] [address] [place] [address] 95293- 9490 March, Unspecified episodic mood disorder 296.90 ; Anxiety disorder , unspecified 300.00 and Unspecified personality disorder 301.9 [facility] [address], [place] [address]- 8187 March, Unspecified episodic mood disorder 296.90 ; Anxiety disorder 300.00 and Unspecified personality disorder 301.9 [facility] [address], [place] [address]- 2107 March, [facility] [id number] [place] [address] 84728- 8341 March, [facility] [address], [place] [address]- 9399 Feb, [facility] [address], [place] [address]- 0861 Feb, [facility] [address], [place] [address]- 0579 Feb, [facility] [id number] 4916 Jan, [facility] [address] [address] 8405 Jan, [facility] [address] [place] [address]- 0322 Jan, [facility] [place] [facility] [address] [id number] [place] [address]- 9297 Jan, [facility] [place] [facility] [address] [id number] [place] [address]- 3496 Jan, 2014 [facility] [place] [facility] [address] [facility] [id number] [place] [address]- 9736 Jan, 2014 [facility] [place] [facility] [address] [facility] [id number] [place] [id number] Jan, 2014 [facility] [place] [facility] [address] [id number] [place] [address]- 9835 Jan, 2014 [facility] [place] [facility] [address] [id number] [place] [address]- 9302 Jan, 2014 [facility] [place] [facility] [address] [facility] [id number] [place] [address]- 8784 Jan, 2014 [facility] [place] [facility] [address] [id number] [place] [address]- 0857 Jan, 2014 [facility] [place] [facility] [address] [id number] [place] [address]- 6033 Jan, [facility] [place] [facility] [address] [facility] [id number] [place] [address]- 1055 Jan, 2014 [facility] [place] [facility] [address] [facility] [id number] [place] [address]- 8314 Jan, 2014 [facility] [place] [facility] [address] [id number], [place] [address]- 7318 Jan, 2014 [facility] [place] [facility] [address] [id number] [place] [address]- 8901 Jan, [facility] [place] [facility] [address] [id number] [place] [address]- 7348 Dec, [facility] [place] [facility] [address] [facility] [id number] [address]- 2735 Dec, [facility] [place] [facility] [address] [facility] [id number], [place] [address]- 7579 Dec, 2014 [facility] [address] [id number] [place] 9870 Dec, [facility] [address] [id number] [place] [address]- 4166 Nov, [facility] [address] [id number] [place] [address]- 4584 Nov, [facility] [address] [id number] [place] [address] Nov, [facility] [address] [id number] [place] [address] Nov, [facility] [address] [id number] [place] [address] Oct, [facility] [address] [id number] [place] [address] Oct, [facility] [address] [id number] [place] [address] Oct, [facility] [address] [id number] [place] [address] Oct, [facility] [address] [id number] [place] [address] Oct, [facility] [address] [id number] [place] [address] Oct, [facility] [place] [facility] [address] [id number] [place] [address] Oct, [facility] [place] [facility] [address] [id number] [place] [address] Oct, [facility] [place] [facility] [address] [id number] [place] [address] Oct, [facility] [place] [facility] [address] [id number] [place] [address] Oct, [facility] [place] [facility] [address] [id number] [place] [address]79 Oct, [facility] [place] [facility] [address] [id number] [place] [address] 6243 Oct, [facility] [place] [facility] [address] [id number] [place] [address] 7227 Oct, [facility] [place] [facility] [address] [id number] [place] [address] 4940 Oct, [facility] [place] [facility] [address] [id number] [place] [address] 5353 Oct, [facility] [place] [facility] [address] [id number] [place] [address]- [address]36 Oct, [facility] [place] [facility] [address] [id number] [place] [address] 4747 Sep, [facility] [place] [facility] [address] [id number] [place] [address] 3890 Sep, [facility] [place] [facility] [address] [id number] [place] [address]- 3663 Sep, [facility] [place] [facility] [address] [id number] [place] [address]- 6446 Sep, [facility] [place] [facility] [address] [id number] [place] [address]- 4205 Sep, [facility] [place] [facility] [address] [id number] [place] [address]- 4564 14 Sep, 2014 [facility] [place] [facility] [address] [id number] [place] [address]- 5142 Sep, [facility] [place] [facility] [address] [id number] [place] [address]- 2577 Sep, [facility] [place] [facility] [address] [id number] [place] [address]- 6537 Sep, [facility] [place] [facility] [address] [id number] [place] [address]- 3004 Sep, [facility] [place] [facility] [address] [id number] [place] [address] 2039 Aug, [facility] [place] [facility] [address] [id number] [place] [address]- 4125 30 Aug, 2014 [facility] [place] [facility] [address] [id number] [place] [address]- 6553 Aug, [facility] [place] [facility] [address] [id number] [place] [address]- 0623 Aug, [facility] [place] [facility] [address] [id number] [place] [address]- 8178 Aug, [facility] [place] [facility] [address] [id number] [place] [address]- 1633 Aug, [facility] [place] [facility] [address] [id number] [place] [address]- 1826 Aug, [facility] [place] [facility] [address] [id number], [place] [address] Aug, [facility] [place] [facility] [address] [id number] [place] [address]- 9247 29 Jul, 2014 [facility] [place] [facility] [address] [id number] [place] [address]- 7006 29 Jul, 2014 [facility] [place] [facility] [address] [id number], [place] [address] Jul, 2013 [facility] [place] [facility] [address] [id number], [place] [address]- [address] 05 Jul, 2013 [facility] [place] [facility] [address] [id number] [place] [address]- 0479 Jul, [facility] [place] [facility] [address] [id number], [place] [address] 4790 05 Jul, 2013 [facility] [place] [facility] [address] [id number], [place] [address] 6028 Jun, [facility] [place] [facility] [address] [id number] [place] [address]- 0923 Jun, [facility] [place] [facility] [address] [id number] [place] [address]- 2245 May, [facility] [place] [facility] [address] [id number] [place] [address]- 1315 May, [facility] [place] [facility] [address] [id number] [place] [address]- 7641 May, [facility] [place] [facility] [address] [id number] [place] [address]- 3454 May, [facility] [place] [facility] [address] [id number] [place] [address]- 6835 May, [facility] [place] [facility] [address] [id number] [place] [address]- 3610 May, [facility] [place] [facility] [address] [id number] [place] [address]- 2906 May, [facility] [place] [facility] [address] [id number] [place] [address]- 6513 May, [facility] [place] [facility] [address] [id number] [place] [address]- 8651 Apr, [facility] [place] [facility] [address] [id number] [place] [address]- 9466 Apr, [facility] [place] [facility] [address] [id number] [place] [address]- 1641 March, [facility] [place] [facility] [address] [id number] [place] [address]- 5969 March, [facility] [place] [facility] [address] [id number] [place] [address]- 1396 Feb, [facility] [place] [facility] [address] [id number] [place] [address]- 7691 Feb, [facility] [place] [facility] [address] [id number] [place] [address]- 8221 Feb, [facility] [place] [facility] [address] [id number] [place] [address]- 8274 Feb, [facility] [place] [facility] [address] [id number] [place] [address]- 2625 Feb, [facility] [place] [facility] [address] [id number] [place] [address]- 6753 Feb, [facility] [place] [facility] [address] [id number] [place] [address]- 9400 Feb, [facility] [place] [facility] [address] [id number] [place] [address]- 6316 Feb, [facility] [place] [facility] [address] [id number] [place] [address]- 7192 Feb, [facility] [place] [facility] [address] [id number] [place] [address]- 6373 Feb, [facility] [place] [facility] [address] [id number] [place] [address]- 1595 Jan, [facility] [place] [facility] [address] [id number] [place] [address]- 1606 Jan, [facility] [place] [facility] [address] [id number] [place] [address]- 4807 Jan, [facility] [place] [facility] [address] [id number] [place] [address]- 5908 Jan, [facility] [place] [facility] [address] [id number] [place] [address]- 1309 Jan, [facility] [place] [facility] [address] [id number] [place] [address]- 8490 Dec, [facility] [place] [facility] [address] [id number] [place] [address]- 4873 Dec, [facility] [place] [facility] [address] [id number] [place] [address]- 4412 Dec, [facility] [place] [facility] [address] [id number], [place] [address]- 7245 10 Dec, 2013 [facility] [address] [id number] [place] [address]- 6996 Dec, [facility] [place] [facility] [address] [id number] [place] [address]- 7348 Dec, [facility] [place] [facility] [address] [id number] [place] [address]- 8621 Nov, [facility] [place] [facility] [address] [id number] [place] [address]- 7150 Nov, [facility] [place] [facility] [address] [id number] [place] [address]- 6661 Nov, [facility] [place] [facility] [address] [id number] [place] [address]- 2902 Nov, [facility] [address] [id number] [place] [address]- 2566 Nov, [facility] [place] [facility] [address] [id number] [place] [address]- 4238 Nov, [facility] [place] [facility] [address] [id number] [place] [address]- 0854 Nov, [facility] [place] [facility] [address] [facility] [id number] [place] [address]- 4229 Nov, [facility] [place] [facility] [address] [id number] [place] [address]- 2970 Oct, [facility] [place] [facility] [address] [id number] [place] [address]- 0977 Oct, [facility] [place] [facility] [address] [id number] [place] [address]- 5442 Oct, [facility] [place] [facility] [address] [id number] [place] [address]- 2176 Oct, [facility] [place] [facility] [address] [id number] [place] [address]- 6556 Oct, [facility] [place] [facility] [address] [id number] [place] [address]- 1755 Oct, [facility] [place] [facility] [address] [id number] [place] [address]- 3670 Oct, [facility] [place] [facility] [address] [id number] [place] [address]- 7278 Oct, [facility] [place] [facility] [address] [id number] [place] [address]- 5943 Sep, [facility] [place] [facility] [address] [id number] [place] [address]- 4038 Sep, [facility] [place] [facility] [address] [id number] [place] [address]- 0510 Sep, [facility] [place] [facility] [address] [id number] [place] [address]- 2116 Sep, [facility] [place] [facility] [address] [id number] [place] [address]- 0664 Sep, [facility] [place] [facility] [address] [id number] [place] [address]- 0195 Sep, [facility] [place] [facility] [address] [id number] [place] [address]- 8359 Sep, [facility] [place] [facility] [address] [id number] [place] [address]- 4190 Sep, [facility] [place] [facility] [address] [id number] [place] [address]- 1304 Aug, [facility] [place] [facility] [address] [id number] [place] [address]- 5473 Aug, [facility] [place] [facility] [address] [id number] [place] [address]- 2616 Aug, [facility] [place] [facility] [address] [id number] [place] [address]- 7105 Jul, [facility] [place] [facility] [address] [id number] [place] [address]- 7586 Jun, [facility] [address] [id number] [place] [address]- 8663 Jun, [facility] [place] [facility] [address] [id number] [place] [address]- 3853 Jun, [facility] [place] [facility] [address] [id number] [place] [address]- 1580 Jun, [facility] [place] [facility] [address] [id number] [place] [address]- 7178 Jun, [facility] [place] [facility] [address] [id number] [place] [address]- 0575 May, [facility] [place] [facility] [address] [id number] [place] [address]- 0965 May, [facility] [place] [facility] [address] [id number] [place] [address]- 1216 Apr, [facility] [place] [facility] [address] [id number] [place] [address]- 2712 Apr, [facility] [place] [facility] [address] [id number] [place] [address]- 4039 March, [facility] [place] [facility] [address] [id number] [place] [address]- 9518 March, [facility] [place] [facility] [address] [id number] [place] [address]- 9282 March, [facility] [place] [facility] [address] [id number] [place] [address]- 3027 March, [facility] [place] [facility] [address] [id number] [place] [address]- 2852 March, [facility] [place] [facility] [address] [id number] [place] [address]- 3241 Feb, [facility] [place] [facility] [address] [id number] [place] [address]- 7582 Feb, [facility] [place] [facility] [address] [id number] [place] [address] 2546 Feb, [facility] [address] [id number] [place] [address]- 6743 Jan, [facility] [place] [facility] [address] [id number] [place] [address]- 2956 Dec, [facility] [address] [id number] [place] [address]- 7496 Dec, [facility] [place] [facility] [address] [id number] [place] [address]- 9765 Dec, [facility] [address] [id number] [place] [address]- 9526 Dec, [facility] [address] [id number] [place] [address]- 7143 Nov, [facility] [address] [id number] [place] [address]- 1166 Nov, [facility] [address] [id number] [place] [address]- 5818 Nov, [facility] [address] [id number] [place] [address]- 4072 Nov, [facility] [address] [id number] [place] [address]69 Oct, [facility] [place] [facility] [address] [id number] [place] [address]- 7246 Oct, [facility] [address] [id number] [place] [address]- 2546 Oct, [facility] [place] [facility] [address] [id number] [place] [address]- 3796 Oct, [facility] [place] [facility] [address] [id number] [place] [address]- 2546 Sep, [facility] [place] [facility] [address] [id number] [place] [address]- 3519 14 Sep, 2012 [facility] [place] [facility] [address] [id number] [place] [address]- 2011 Sep, [facility] [place] [facility] [address] [id number] [place] [address]- 4824 Sep, [facility] [place] [facility] [address] [id number] [place] [address]- 7576 Sep, [facility] [place] [facility] [address] [id number] [place] [address]- 0263 Sep, [facility] [place] [facility] [address] [id number] [place] [address]- 0157 Aug, [facility] [place] [facility] [address] [id number] [place] [address]- 0885 Aug, [facility] [place] [facility] [address] [facility] [id number] [place] [address]- 8099 Aug, [facility] [place] [facility] [address] [id number] [place] [address]- 3844 Jul, [facility] [place] [facility] [address] [id number] [place] [address]- 1951 Jul, [facility] [place] [facility] [address] [facility] [id number], [place] [address]- 9828 Jun, [facility] [place] [facility] [address] [id number], [place] [address]- 7407 May, [facility] [place] [facility] [address] [id number], [place] [address]- 4200 May, [facility] [place] [facility] [address] [id number] [place] [address]- 3330 Apr, [facility] [place] [facility] [address] [id number], [place] [address]- 3961 Apr, [facility] [place] [facility] [address] [facility] [id number] [place] [address]- 6997 March, [facility] [place] [facility] [address] [id number] [place] [address]- 6315 07 Mar, 2012 [facility] [address] [id number] [place] [address]- 9306 19 Feb, 2012 [facility] [place] [facility] [address] [id number] [place] [address]- 6696 16 Feb, 2012 [facility] [place] [facility] [address] [facility] [id number] [place] [address]- 5556 09 Feb, 2012 [facility] [place] [facility] [address] [id number] [place] [address]- 6736 06 Feb, 2012 [facility] [place] [facility] [address] [id number] [place] [address]- 9439 15 Jan, 2012 [facility] [place] [facility] [address] [id number] [place] [address]- 7836 07 Jan, 2012 [facility] [place] [facility] [address] [id number] [place] [address]- 6583 29 Dec, 2011 [facility] [place] [facility] [address] [id number] [place] [address]- 9051 28 Dec, 2011 [facility] [place] [facility] [id number] [place] [address] 26 Dec, 2011 [facility] [place] [facility] [address] [facility] [id number] [place] [address]- 4913 23 Dec, 2011 [facility] [place] [facility] [id number] [place] [address] 2546 20 Dec, 2011 [facility] [place] [facility] [address] [id number] [place] [address] 2546 15 Dec, 2011 [facility] [place] [facility] [address] [id number] [place] [address]- 2796 10 Dec, 2011 [facility] [place] [facility] [address] [facility] [id number] [place] [address]- 2546 09 Dec, 2011 [facility] [place] [facility] [id number] [place] [address]- 3660 08 Dec, 2011 [facility] [place] [facility] [address] [id number] [place] [address]- 0121 Dec, [facility] [place] [facility] [address] [id number] [place] [address]- 7866 Dec, [facility] [place] [facility] [address] [id number] [place] [address]- 0486 Dec, [facility] [place] [facility] [address] [id number] [place] [address]- 1876 Dec, [facility] [place] [facility] [address] [id number] [place] [address]- 0511 Nov, [facility] [place] [facility] [address] [id number] [place] [address]- 9555 Nov, [facility] [place] [facility] [address] [id number] [place] [address]- 1467 Nov, [facility] [place] [facility] [address] [id number] [place] [address]- 0276 Nov, [facility] [place] [facility] [address] [id number] [place] [address]- 1912 Nov, [facility] [place] [facility] [address] [id number] [place] [address]- 5624 Nov, [facility] [place] [facility] [address] [id number] [place] [address]- 5214 Oct, [facility] [place] [facility] [address] [id number] [place] [address]- 4823 Oct, [facility] [place] [facility] [address] [id number] [place] [address]- 8554 Sep, [facility] [place] [facility] [address] [id number] [place] [address]- 1717 Sep, [facility] [place] [facility] [address] [id number] [place] [address]- 5320 Sep, [facility] [place] [facility] [id number] [address]- 4296 Sep, [facility] [id number] [address]- 4858 Sep, [facility] [id number], [place] [address]- 2276 March, [facility] [id number], [place] [address]- 3557 Oct, [facility] [id number], [place] [address]- 4801 Oct, [facility] [id number] [place] [address]- 1332 Oct, [facility] [id number], [place] [address]- 6188 Sep, [facility] [id number] [place] [id number] Sep, [facility] [id number] [address] Sep, [facility] [id number] [address] Sep, [facility] [id number] [address] Aug, [facility] [id number] [place] [address] Oct, [facility] [id number] [address] Oct, [facility] [id number], [place] [address] May, IMMUNIZATIONS No Known Immunizations SOCIAL HISTORY Never Assessed REASON FOR VISIT Carmen ROSADO PLAN OF CARE VITAL SIGNS MEDICATIONS Unknown Medications RESULTS Name Result Date Reference Range KEE 2017-12-14 PROCEDURES Procedure Date Ordered Result Body Site No Charge Dec 14, 2017 INSTRUCTIONS MEDICATIONS ADMINISTERED No Known Medications MEDICAL (GENERAL) HISTORY Type Description Date Medical History hypertension Medical History panic attacks Surgical History cholecystectomy 2008 Hospitalization History surgery
--- OUTSIDE RECORDS SUMMARY | 2018-12-11 10:35 | XMS REPORT ---
Author Author ELEAZAR VILLATORO [facility] Address [address] [place] [address] Care Team Providers Care Plaster Lather Name Role Phone IRVING ELEAZAR Unavailable PROBLEMS Type Condition ICD9-CM Code FWL79-GB Code Onset Dates Condition Status SNOMED Code Problem Stress incontinence of urine N39.3 Active 20168272 Problem Anxiety F41.9 Active 10391429 Problem Anxiety disorder, unspecified F41.9 Active 625677486 Problem Unspecified episodic mood disorder F39 Active 536368971 Problem Unspecified personality disorder F60.9 Active [id number] ALLERGIES No Information ENCOUNTERS Encounter Location Date Diagnosis [facility] [id number] [place] [address] 56008- 1093 Apr, [facility] [id number] [place] [address] 32546- 3148 March, Anxiety disorder, unspecified F41.9 [facility] [id number] [place] [address] 96581- 2159 March, Unspecified episodic mood disorder F39 ; Anxiety disorder, unspecified F41.9 and Unspecified personality disorder F60.9 [facility] [id number] [place] [address] 37310- 2135 March, Anxiety disorder, unspecified F41.9 [facility] [id number] [place] [address] 58901- 8526 Feb, Unspecified episodic mood disorder F39 ; Anxiety disorder, unspecified F41.9 and Unspecified personality disorder F60.9 [facility] [id number] [place] [address] 30883- 4489 Feb, Unspecified episodic mood disorder F39 ; Anxiety disorder, unspecified F41.9 and Unspecified personality disorder F60.9 [facility] [address], [place] [address] 3175 Feb, Anxiety disorder, unspecified F41.9 [facility] [id number] [place] [address] 47208- 7016 Jan, Unspecified episodic mood disorder F39 ; Anxiety disorder, unspecified F41.9 and Unspecified personality disorder F60.9 [facility] [id number] [place] [address] 94362- 6900 Jan, Anxiety F41.9 [facility] [id number] [place] [address] 70408- 7989 Jan, Anxiety disorder, unspecified F41.9 [facility] [id number] [place] [address] 17611- 4812 Dec, Unspecified episodic mood disorder F39 ; Anxiety disorder, unspecified F41.9 and Unspecified personality disorder F60.9 [facility] [address], [place] [address] 0440 Dec, Anxiety F41.9 [facility] [id number] [place] [address] 60326- 5036 Dec, Anxiety disorder, unspecified F41.9 [facility] [address], [place] [address] 4217 Dec, Unspecified episodic mood disorder F39 ; Anxiety disorder, unspecified F41.9 and Unspecified personality disorder F60.9 [facility] [address], [place] [address]- 5414 Nov, [facility] [id number] [place] [address] 77015- 1192 Nov, [facility] [address], [place] [address]- 1323 Nov, Unspecified episodic mood disorder F39 ; Anxiety disorder, unspecified F41.9 and Unspecified personality disorder F60.9 [facility] [id number] [place] [address] 03546- 0696 Nov, Anxiety disorder, unspecified F41.9 [facility] [id number] [place] [address] 10633- 5269 Oct, Unspecified episodic mood disorder F39 ; Anxiety disorder, unspecified F41.9 and Unspecified personality disorder F60.9 [facility] [id number] [place] [address] 69047- 8131 Oct, Vaginal yeast infection B37.3 [facility] [id number] [place] [address] 36836- 5128 Oct, [facility] [id number] [place] [address] 23712- 5316 Oct, Anxiety disorder, unspecified F41.9 [facility] [id number] [place] [address] 97052- 3851 Oct, Routine gynecological examination Z01.419 ; Screening for breast cancer Z12.31 and Vaginal yeast infection B37.3 [facility] [id number] [place] [address] 64093- 6157 Sep, Unspecified episodic mood disorder F39 ; Anxiety disorder, unspecified F41.9 and Unspecified personality disorder F60.9 [facility] [id number] [place] [address] 26022- 3547 Sep, [facility] [id number] [place] [address] 08943- 4963 Sep, Anxiety disorder, unspecified F41.9 [facility] [id number] [place] [address] 47884- 2885 Sep, Bronchitis J40 and Stress incontinence of urine N39.3 [facility] [id number] [place] [address] 53343- 1955 Sep, Stress incontinence of urine N39.3 ; Bronchitis J40 and Anxiety F41.9 [facility] [id number] [address]- 4117 Sep, [facility] [id number] [place] [address] 14577- 9014 Sep, Unspecified episodic mood disorder F39 ; Anxiety disorder, unspecified F41.9 and Unspecified personality disorder F60.9 [facility] [id number] [place] [address] 03087- 3608 Aug, Anxiety F41.9 ; Stress incontinence of urine N39.3 and Encounter for immunization Z23 [facility] [id number] [place] [address] 38154- 2422 Aug, Anxiety disorder, unspecified F41.9 [facility] [id number] [place] [address] 19544- 7129 Jul, Unspecified episodic mood disorder F39 ; Anxiety disorder, unspecified F41.9 and Unspecified personality disorder F60.9 [facility] [id number] [place] [address] 81479- 7510 Jul, [facility] [id number] [place] [address] 19561- 1792 Jul, Unspecified episodic mood disorder F39 ; Anxiety disorder, unspecified F41.9 and Unspecified personality disorder F60.9 [facility] [id number] [place] [address] 37294- 8760 Jul, Anxiety disorder, unspecified F41.9 [facility] [id number] [place] [address] 52035- 6136 Jun, Unspecified episodic mood disorder F39 ; Anxiety disorder, unspecified F41.9 and Unspecified personality disorder F60.9 [facility] [id number] [place] [address] 82518- 6628 Jun, Anxiety disorder, unspecified F41.9 [facility] [id number] [place] [address] 11592- 8663 Jun, Unspecified episodic mood disorder F39 ; Anxiety disorder, unspecified F41.9 and Unspecified personality disorder F60.9 [facility] [address], [place] [address]- 1874 Jun, [facility] [id number] [place] [address] 31665- 3171 May, Anxiety disorder, unspecified F41.9 [facility] [id number] [place] [address] 05299- 8998 May, Unspecified episodic mood disorder F39 ; Anxiety disorder, unspecified F41.9 and Unspecified personality disorder F60.9 [facility] [id number] [place] [address] 35827- 2000 Apr, Anxiety disorder, unspecified F41.9 [facility] [id number] [place] [address] 17232- 4316 March, Unspecified episodic mood disorder F39 ; Anxiety disorder, unspecified F41.9 and Unspecified personality disorder F60.9 [facility] [id number] [place] [address] 75608- 8063 March, Bronchitis J40 [facility] [id number] [place] [address] 15959- 6509 March, Unspecified episodic mood disorder F39 ; Anxiety disorder, unspecified F41.9 and Unspecified personality disorder F60.9 [facility] [id number] [place] [address] 19028- 1223 Feb, [facility] [id number] [place] [address] 74509- 7406 Feb, Unspecified episodic mood disorder F39 ; Anxiety disorder, unspecified F41.9 and Unspecified personality disorder F60.9 [facility] [address], [place] [address]- 3850 Feb, Bronchitis J40 [facility] [id number] [place] [address] 12554- 0020 Feb, Unspecified episodic mood disorder F39 ; Anxiety disorder, unspecified F41.9 and Unspecified personality disorder F60.9 [facility] [address] [place] [address] 83142- 2981 Jan, Unspecified episodic mood disorder F39 ; Anxiety disorder, unspecified F41.9 and Unspecified personality disorder F60.9 [facility] [id number] [place] [address] 89168- 6182 Jan, Bronchitis J40 [facility] [id number] [place] [address] 31186- 5034 Jan, Unspecified episodic mood disorder F39 ; Anxiety disorder, unspecified F41.9 and Unspecified personality disorder F60.9 [facility] [id number] [place] [address] 01613- 0329 Dec, Anxiety F41.9 [facility] [id number] [place] [address] 09300- 3947 Dec, Unspecified episodic mood disorder F39 ; Anxiety disorder, unspecified F41.9 and Unspecified personality disorder F60.9 [facility] [id number] [id number] Dec, [facility] [address], [place] [address]- 7316 Dec, Unspecified episodic mood disorder F39 ; Anxiety disorder, unspecified F41.9 and Unspecified personality disorder F60.9 [facility] [address], [place] [address]- 2091 Nov, [facility] [address], [place] [address]- 9760 Oct, Unspecified episodic mood disorder F39 ; Anxiety disorder, unspecified F41.9 and Unspecified personality disorder F60.9 [facility] [address], [place] [address]- 4312 Oct, [facility] [address], [place] [address] -5903 Oct, Acute upper respiratory infection, unspecified J06.9 ; Other viral agents as the cause of diseases classified elsewhere B97.89 and Cough R05 [facility] [address], [place] [address]- 7454 Aug, Unspecified episodic mood disorder F39 ; Anxiety disorder, unspecified F41.9 and Unspecified personality disorder F60.9 [facility] [id number] [place] [address] 54028- 8755 Aug, [facility] [id number] [place] [address] 59114- 9435 Aug, [facility] [id number] [place] [address] 82471- 3792 Aug, [facility] [id number] [place] [address] 46796- 9092 Aug, Visit for TB skin test Z11.1 [facility] [address], [place] [address]- 5446 Jul, [facility] [id number] [place] [address] 26694- 8570 Jul, [facility] [address], [place] [address]- 9454 Jul, [facility] [id number] [place] [address] 98058- 7652 Jul, [facility] [address], [place] [address]- 1138 Jul, [facility] [address] [place] [address] 06703- 2896 Jul, Unspecified episodic mood disorder F39 ; Anxiety disorder, unspecified F41.9 and Unspecified personality disorder F60.9 [facility] [address], [place] [address]- 6176 Jun, [facility] [address], [place] [address]- 1837 Jun, Unspecified episodic mood disorder F39 ; Anxiety disorder, unspecified F41.9 and Unspecified personality disorder F60.9 [facility] [address], [place] [address]- 6455 Jun, [facility] [address] [place] [address] 28424- 7806 May, Unspecified episodic mood disorder F39 ; Anxiety disorder, unspecified F41.9 and Unspecified personality disorder F60.9 [facility] [address] [place] [address] 77058- 4375 May, [facility] [id number] [place] [address] 54058- 3704 May, [facility] [id number] [place] [address] 52656- 3948 May, Edema, unspecified R60.9 [facility] [address] [place] [address] 73773- 8177 Apr, [facility] [id number] [place] [address] 60122- 4215 Apr, Unspecified episodic mood disorder F39 ; Anxiety disorder, unspecified F41.9 and Unspecified personality disorder F60.9 [facility] [address], [place] [address]- 2521 Apr, Anxiety F41.9 [facility] [address] [place] [address] 93552- 9134 March, Unspecified episodic mood disorder F39 ; Anxiety disorder, unspecified F41.9 and Unspecified personality disorder F60.9 [facility] [address], [place] [address]- 8514 March, Unspecified episodic mood disorder F39 ; Anxiety disorder, unspecified F41.9 and Unspecified personality disorder F60.9 [facility] [id number] [place] [address]- 2950 Feb, Anxiety F41.9 [facility] [id number] [place] [address] 41869- 2704 Feb, Unspecified episodic mood disorder F39 ; Anxiety disorder, unspecified F41.9 and Unspecified personality disorder F60.9 [facility] [id number] [place] [address] 55361- 8365 Jan, Unspecified episodic mood disorder F39 ; Anxiety disorder, unspecified F41.9 and Unspecified personality disorder F60.9 [facility] [id number] [place] [address] 10036- 0113 Jan, Unspecified episodic mood disorder F39 ; Anxiety disorder, unspecified F41.9 and Unspecified personality disorder F60.9 [facility] [id number] [place] [address] 63362- 9678 Jan, Edema, unspecified R60.9 [facility] [id number] [place] [address] 32175- 9220 Dec, [facility] [id number] [place] [address] 78934- 2420 Dec, [facility] [id number] [place] [address] 96046- 2512 Dec, [facility] [id number] [place] [address] 99496- 5056 Dec, Unspecified episodic mood disorder F39 ; Anxiety disorder, unspecified F41.9 and Unspecified personality disorder F60.9 [facility] [id number] [place] [address] 59941- 8122 Nov, [facility] [id number] [place] [address] 54387- 3602 Nov, Unspecified episodic mood disorder F39 ; Anxiety disorder, unspecified F41.9 and Unspecified personality disorder F60.9 [facility] [id number] [place] [address]- 4154 Oct, Unspecified episodic mood disorder F39 ; Anxiety disorder, unspecified F41.9 and Unspecified personality disorder F60.9 [facility] [id number] [place] [address] 42865- 8215 Oct, Unspecified episodic mood disorder F39 ; Anxiety disorder, unspecified F41.9 and Unspecified personality disorder F60.9 [facility] [id number] [place] [address] 20745- 4452 Sep, Unspecified episodic mood disorder F39 ; Anxiety disorder, unspecified F41.9 and Unspecified personality disorder F60.9 [facility] [id number] [place] [address] 77950- 8637 Sep, Encounter for immunization Z23 [facility] [id number] [place] [address] 43301- 5236 Sep, Edema of left lower extremity R60.0 [facility] [id number] [place] [address] 64762- 6472 Aug, Unspecified episodic mood disorder F39 ; Anxiety disorder, unspecified F41.9 and Unspecified personality disorder F60.9 [facility] [id number] [place] [address] 43408- 4107 Aug, [facility] [id number] [place] [address] 64205- 7824 Aug, Edema of left lower extremity R60.0 [facility] [id number] [place] [address] 51244- 6570 Aug, [facility] [id number] [place] [address] 98368- 8375 Aug, Unspecified episodic mood disorder F39 ; Anxiety disorder, unspecified F41.9 and Unspecified personality disorder F60.9 [facility] [id number] [place] [address] 23812- 8300 Jul, Unspecified episodic mood disorder 296.90 ; Anxiety disorder , unspecified 300.00 and Unspecified personality disorder 301.9 [facility] [address], [place] [address]- 3318 Jul, Unspecified episodic mood disorder 296.90 ; Anxiety disorder , unspecified 300.00 and Unspecified personality disorder 301.9 [facility] [address], [place] [address]- 6994 Jul, [facility] [id number] [place] [address] 60785- 3709 Jun, Unspecified episodic mood disorder 296.90 ; Anxiety disorder , unspecified 300.00 and Unspecified personality disorder 301.9 [facility] [id number] [place] [address] 73606- 0319 May, Unspecified episodic mood disorder 296.90 ; Anxiety disorder , unspecified 300.00 and Unspecified personality disorder 301.9 [facility] [id number] [place] [address] 80222- 4384 May, Anxiety disorder, unspecified 300.00 [facility] [id number] [place] [address] 81452- 7564 May, Anxiety disorder, unspecified 300.00 and Edema 782.3 [facility] [address], [place] [address]- 8274 May, Unspecified episodic mood disorder 296.90 ; Anxiety disorder , unspecified 300.00 and Unspecified personality disorder 301.9 [facility] [address], [place] [address]- 0577 Apr, [facility] [address] [place] [address] 06865- 3687 Apr, Unspecified episodic mood disorder 296.90 ; Anxiety disorder , unspecified 300.00 and Personality disorder, unspecified 301.9 [facility] [address], [place] [address]- 8132 Apr, Unspecified episodic mood disorder 296.90 ; Anxiety disorder , unspecified 300.00 and Unspecified personality disorder 301.9 [facility] [address] 4416 March, [facility] [address], [place] [address]- 7196 March, Unspecified episodic mood disorder 296.90 ; Anxiety disorder , unspecified 300.00 and Unspecified personality disorder 301.9 [facility] [address] [place] [address]- 5743 March, Unspecified episodic mood disorder 296.90 ; Anxiety disorder 300.00 and Unspecified personality disorder 301.9 [facility] [address], [place] [address]- 6198 March, [facility] [address], [place] [address]- 3303 March, [facility] [address], [place] [address]- 1750 Feb, [facility] [address], [place] [address]- 5679 Feb, [facility] [address], [place] [address]- 5403 Feb, [facility] [address]- 9184 Jan, [facility] [address], [place] [address]- 3085 Jan, [facility] [address], [place] [address]- 3189 Jan, [facility] [address], [place] [address]- 2505 Jan, [facility] [address], [place] [address]- 2546 Jan, [facility] [address], [place] [address]- 4020 Jan, [facility] [place] [facility] [address] [id number] [place] [id number] Jan, [facility] [place] [facility] [address] [id number] [place] [address]- 8285 Jan, 2014 [facility] [place] [facility] [address] [id number] [place] [address]- 2927 Jan, 2014 [facility] [place] [facility] [address] [id number] [place] [address]- 2158 Jan, 2014 [facility] [place] [facility] [address] [id number] [place] [address]- 2069 Jan, 2014 [facility] [place] [facility] [address] [id number] [place] [address]- 8584 Jan, 2014 [facility] [place] [facility] [address] [id number] [place] [address]- 2132 Jan, 2014 [facility] [place] [facility] [address] [id number] [place] [address]- 8532 Jan, 2014 [facility] [place] [facility] [address] [id number] [place] [address]- 0567 Jan, [facility] [place] [facility] [address] [id number] [place] [address]- 0373 Jan, [facility] [place] [facility] [address] [id number] [address]- 6477 Dec, 2014 [facility] [place] [facility] [address] [id number] [address]- 4297 Dec, 2014 [facility] [place] [facility] [address] [id number] [place] [address]- 0004 Dec, [facility] [place] [facility] [address] [id number] [place] [address]- 7538 Dec, 2014 [facility] [place] [facility] [address] [id number] [place] [address]- 2802 Nov, [facility] [place] [facility] [address] [id number] [place] [address]- 1407 13 Nov, 2014 [facility] [address] [id number] [place] [address]- 2246 Nov, [facility] [place] [facility] [address] [id number] [place] [address]- 4038 Nov, [facility] [address] [id number] [place] [address]- 3448 15 Oct, 2014 [facility] [place] [facility] [address] [id number] [place] [address]- 0177 Oct, [facility] [place] [facility] [address] [id number] [place] [address]- 9483 Oct, [facility] [place] [facility] [address] [id number] [place] [address]- 8656 Oct, [facility] [address] [id number] [place] [address]- 5389 Oct, [facility] [place] [facility] [address] [id number] [place] [address]- 9817 Oct, [facility] [place] [facility] [address] [id number] [place] [address]- 4486 Oct, [facility] [place] [facility] [address] [id number] [place] [address]- 5775 Oct, [facility] [place] [facility] [address] [id number] [place] [address]- 9791 Oct, [facility] [place] [facility] [address] [id number] [place] [address]- 4039 Oct, [facility] [place] [facility] [address] [id number] [place] [address]- 8112 Oct, [facility] [place] [facility] [address] [id number] [place] [address]- 5793 Oct, [facility] [place] [facility] [address] [id number] [place] [address]- 1900 Oct, [facility] [place] [facility] [address] [id number] [place] [address]- 2258 Oct, [facility] [place] [facility] [address] [id number] [place] [address] Oct, [facility] [place] [facility] [address] [id number] [place] [address] Oct, [facility] [place] [facility] [address] [id number] [place] [address] Sep, [facility] [place] [facility] [address] [id number] [place] [address] Sep, [facility] [place] [facility] [address] [id number] [place] [address] Sep, [facility] [place] [facility] [address] [id number] [place] [address] Sep, [facility] [place] [facility] [address] [address] [id number] [place] [address] Sep, [facility] [place] [facility] [address] [id number] [place] [address] Sep, [facility] [place] [facility] [address] [id number] [place] [address] 69[address] Sep, [facility] [place] [facility] [address] [id number] [place] [address] 8786 Sep, [facility] [place] [facility] [address] [id number] [place] [address] 1324 Sep, [facility] [place] [facility] [address] [id number] [place] [address]88 Sep, [facility] [place] [facility] [address] [id number] [place] [address] 2891 Aug, [facility] [place] [facility] [address] [id number] [place] [address] 2689 Aug, [facility] [place] [facility] [address] [id number] [place] [address]- 8127 14 Aug, 2014 [facility] [place] [facility] [address] [id number] [place] [address]- 2246 14 Aug, 2014 [facility] [place] [facility] [address] [id number] [place] [address]- 7414 Aug, [facility] [place] [facility] [address] [id number] [place] [address] 1112 Aug, [facility] [place] [facility] [address] [id number] [place] [address]- 0199 Aug, [facility] [place] [facility] [address] [id number] [place] [address]- 4915 Aug, [facility] [place] [facility] [address] [id number] [place] [address]- 8136 29 Jul, 2014 [facility] [place] [facility] [address] [id number] [place] [address]- 1782 29 Jul, 2014 [facility] [place] [facility] [address] [id number] [place] [address]- 7503 05 Jul, 2014 [facility] [place] [facility] [address] [id number] [place] [address]- 6467 05 Jul, 2014 [facility] [place] [facility] [address] [id number] [place] [address]- 9858 Jul, [facility] [place] [facility] [address] [id number] [place] [address]- 6924 Jul, [facility] [place] [facility] [address] [id number], [place] [address] 7636 Jun, [facility] [place] [facility] [address] [id number] [place] [address]- 9005 Jun, [facility] [place] [facility] [address] [id number] [place] [address]- 6181 May, [facility] [place] [facility] [address] [id number] [place] [address]- 7685 May, [facility] [place] [facility] [address] [id number] [place] [address]- 2052 May, [facility] [address] [id number] [place] [address]- 1009 May, [facility] [place] [facility] [address] [id number] [place] [address]- 7334 May, [facility] [address] [id number] [place] [address]- 3717 May, [facility] [place] [facility] [address] [id number] [place] [address]- 4136 May, [facility] [address] [id number] [place] [address]- 8363 May, [facility] [address] [id number] [place] [address]- 7633 Apr, [facility] [place] [facility] [address] [id number] [place] [address]- 9687 Apr, [facility] [address] [id number] [place] [address]- 9808 March, [facility] [place] [facility] [address] [id number] [place] [address]- 8541 March, [facility] [address] [id number] [place] [address]- 0706 Feb, [facility] [place] [facility] [address] [id number] [place] [address]- 1152 Feb, [facility] [place] [facility] [address] [id number] [place] [address] 1980 Feb, [facility] [place] [facility] [address] [id number] [place] [address]- 8867 Feb, [facility] [place] [facility] [address] [id number] [place] [address]- 4758 Feb, [facility] [place] [facility] [address] [id number] [place] [address]- 5364 Feb, [facility] [place] [facility] [address] [id number] [place] [address]- 7455 Feb, [facility] [place] [facility] [address] [id number] [place] [address]- 4066 Feb, [facility] [place] [facility] [address] [id number] [place] [address]- 5739 Feb, [facility] [place] [facility] [address] [id number] [place] [address]- 9138 Feb, [facility] [place] [facility] [address] [id number] [place] [address]- 7365 Jan, [facility] [place] [facility] [address] [id number] [place] [address]- 3281 Jan, [facility] [place] [facility] [address] [id number] [place] [address]- 5164 Jan, [facility] [place] [facility] [address] [id number] [place] [address]- 2523 Jan, [facility] [place] [facility] [address] [id number] [place] [address]- 5073 Jan, [facility] [place] [facility] [address] [id number] [place] [address]- 0764 Dec, [facility] [place] [facility] [address] [id number] [place] [address]- 9548 Dec, [facility] [place] [facility] [address] [id number], [place] [address]- 9330 Dec, [facility] [place] [facility] [address] [id number] [place] [address]- 2124 Dec, [facility] [place] [facility] [address] [id number] [place] [address]- 3354 Dec, [facility] [place] [facility] [address] [id number] [place] [address]- 1322 Dec, [facility] [place] [facility] [address] [id number] [place] [address]- 4303 Nov, [facility] [address] [id number] [place] [address]- 6823 Nov, [facility] [place] [facility] [address] [id number] [place] [address]- 9459 Nov, [facility] [address] [id number] [place] [address]- 5939 Nov, [facility] [place] [facility] [address] [id number] [place] [address]- 2399 Nov, [facility] [address] [id number] [place] [address]- 0532 Nov, [facility] [place] [facility] [address] [id number] [place] [address]- 7386 Nov, [facility] [address] [id number] [place] [address]- 7217 Nov, [facility] [address] [id number] [place] [address]- 2668 Oct, [facility] [place] [facility] [address] [id number] [place] [address]- 1994 Oct, [facility] [address] [id number] [place] [address]- 7646 Oct, [facility] [place] [facility] [address] [id number] [place] [address]- 2920 Oct, [facility] [place] [facility] [address] [id number] [place] [address]- 4857 Oct, [facility] [place] [facility] [address] [id number] [place] [address]- 0333 Oct, [facility] [place] [facility] [address] [id number] [place] [address]- 2639 Oct, [facility] [place] [facility] [address] [id number] [place] [address]- 1160 Oct, [facility] [place] [facility] [address] [id number] [place] [address]- 2799 Sep, [facility] [place] [facility] [address] [id number] [place] [address]- 6247 Sep, [facility] [place] [facility] [address] [id number] [place] [address]- 1379 Sep, [facility] [place] [facility] [address] [id number] [place] [address]- 7198 Sep, [facility] [place] [facility] [address] [id number] [place] [address]- 7015 Sep, [facility] [place] [facility] [address] [id number] [place] [address]- 2793 Sep, [facility] [place] [facility] [address] [id number] [place] [address]- 1623 Sep, [facility] [place] [facility] [address] [id number] [place] [address]- 7043 Sep, [facility] [place] [facility] [address] [id number] [place] [address]- 7739 Aug, [facility] [place] [facility] [address] [id number] [place] [address]- 6341 Aug, [facility] [place] [facility] [address] [id number] [place] [address]- 3001 Aug, [facility] [place] [facility] [address] [id number] [place] [address]- 5228 Jul, [facility] [place] [facility] [address] [id number] [place] [address]- 7242 Jun, [facility] [place] [facility] [address] [id number] [place] [address]- 2611 Jun, [facility] [place] [facility] [address] [id number] [place] [address]- 4378 Jun, [facility] [place] [facility] [address] [id number] [place] [address]- 3666 Jun, [facility] [address] [id number] [place] [address]- 7349 Jun, [facility] [place] [facility] [address] [id number] [place] [address]- 0695 May, [facility] [place] [facility] [address] [id number] [place] [address]- 5999 May, [facility] [place] [facility] [address] [id number] [place] [address]- 2319 Apr, [facility] [place] [facility] [address] [id number] [place] [address]- 1053 Apr, [facility] [place] [facility] [address] [id number] [place] [address]- 2727 March, [facility] [place] [facility] [address] [id number] [place] [address]- 7911 March, [facility] [place] [facility] [address] [id number] [place] [address]- 2646 March, [facility] [address] [id number] [place] [address] March, [facility] [place] [facility] [address] [id number] [place] [address]- 3449 March, [facility] [place] [facility] [address] [id number] [place] [address]- 7033 Feb, [facility] [place] [facility] [address] [id number] [place] [address]- 6847 Feb, [facility] [place] [facility] [address] [id number] [place] [address]- 8439 Feb, [facility] [place] [facility] [address] [id number] [place] [address]- 8084 Jan, [facility] [place] [facility] [address] [id number] [place] [address]- 8494 Dec, [facility] [place] [facility] [address] [id number] [place] [address]- 1507 27 Dec, 2012 [facility] [place] [facility] [address] [id number] [place] [address]- 4806 18 Dec, 2012 [facility] [place] [facility] [address] [id number] [place] [address]- 2546 Dec, [facility] [place] [facility] [address] [id number] [place] [address]- 8792 Nov, [facility] [place] [facility] [address] [id number] [place] [address]- 3710 Nov, [facility] [place] [facility] [address] [id number] [place] [address]- 6864 Nov, [facility] [place] [facility] [address] [id number] [place] [address]- 5650 Nov, [facility] [place] [facility] [address] [id number] [place] [address]- 2628 Oct, [facility] [place] [facility] [address] [id number] [place] [address]- 6477 Oct, [facility] [place] [facility] [address] [id number] [place] [address]- 4114 Oct, [facility] [place] [facility] [address] [id number] [place] [address]- 8946 Oct, [facility] [place] [facility] [address] [id number] [place] [address]- 5811 14 Sep, 2012 [facility] [place] [facility] [address] [id number] [place] [address]- 3526 14 Sep, 2012 [facility] [place] [facility] [address] [id number] [place] [address] 2546 13 Sep, 2012 [facility] [place] [facility] [address] [id number] [place] [address] 2546 13 Sep, 2012 [facility] [place] [facility] [address] [id number] [place] [address]- 2239 Sep, [facility] [place] [facility] [address] [id number] [place] [address]- 2546 Sep, [facility] [place] [facility] [address] [id number] [place] [address]- 2546 Aug, [facility] [place] [facility] [address] [id number] [place] [address]- 2546 Aug, [facility] [place] [facility] [address] [id number] [place] [address]- 2546 Aug, [facility] [place] [facility] [address] [id number] [place] [address]- 2546 Jul, [facility] [place] [facility] [address] [id number] [place] [address]- 2546 Jul, [facility] [place] [facility] [address] [id number] [place] [address]- 2546 Jun, [facility] [place] [facility] [address] [id number], [place] [address]- 2546 May, [facility] [place] [facility] [address] [id number] [place] [address]- 1086 May, [facility] [place] [facility] [address] [facility] [id number], [place] [address]- 2546 Apr, [facility] [place] [facility] [address] [id number], [place] [address]- 2546 Apr, [facility] [place] [facility] [address] [id number], [place] [address]- 2546 March, [facility] [place] [facility] [address] [id number] [place] [address]- 2546 March, [facility] [place] [facility] [address] [facility] [id number], [place] [address]- 2546 Feb, [facility] [place] [facility] [address] [id number], [place] [address]- 2546 Feb, [facility] [place] [facility] [address] [facility] [id number] [place] [address]- 3129 09 Feb, 2012 [facility] [place] [facility] [address] [id number] [place] [address]- 9707 Feb, [facility] [place] [facility] [address] [facility] [id number] [place] [address]- 4220 15 Jan, 2012 [facility] [place] [facility] [address] [facility] [id number] [place] [address]- 6126 Jan, [facility] [place] [facility] [address] [id number] [place] [address]- 7129 29 Dec, 2011 [facility] [place] [facility] [address] [facility] [id number] [place] [address]- 8576 28 Dec, 2011 [facility] [place] [facility] [address] [facility] [id number] [place] [address]- 5587 26 Dec, 2011 [facility] [place] [facility] [address] [id number] [place] [address]- 4658 23 Dec, 2011 [facility] [place] [facility] [address] [facility] [id number] [place] [address]- 9695 Dec, [facility] [place] [facility] [address] [id number] [place] [address]- 6062 15 Dec, 2011 [facility] [place] [facility] [address] [id number] [place] [address]- 6561 Dec, [facility] [place] [facility] [address] [facility] [id number] [place] [address]- 6918 Dec, [facility] [place] [facility] [address] [facility] [id number] [place] [address]- 7910 08 Dec, 2011 [facility] [place] [facility] [address] [facility] [id number] [place] [address]- 0688 07 Dec, 2011 [facility] [place] [facility] [address] [facility] [id number] [place] [address]- 0524 02 Dec, 2011 [facility] [place] [facility] [id number] [address]- 9000 Dec, [facility] [address] [id number] [place] [address]- 6354 Dec, [facility] [place] [facility] [address] [id number] [place] [address]- 7144 Nov, [facility] [place] [facility] [address] [id number] [place] [address]- 1799 Nov, [facility] [place] [facility] [address] [id number] [place] [address]- 8094 Nov, [facility] [address] [id number] [place] [address]- 4833 Nov, [facility] [place] [facility] [address] [id number] [place] [address]- 4534 Nov, [facility] [address] [id number] [place] [address]- 4702 Nov, [facility] [place] [facility] [address] [id number] [place] [address]- 7465 Oct, [facility] [address] [id number] [place] [address]- 2787 Oct, [facility] [place] [facility] [address] [id number] [place] [address]- 8904 Sep, [facility] [place] [facility] [address] [id number] [place] [address]- 9594 Sep, [facility] [place] [facility] [address] [id number] [place] [address]- 1116 Sep, [facility] [place] [facility] [address] [id number] [place] [address]- 3672 Sep, [facility] [place] [facility] [address] [id number] [place] [address]- 0887 Sep, [facility] [place] [facility] [address] [id number] [place] [address]- 6916 March, [facility] [place] [facility] [address] [facility] [id number], [place] [address]- 4204 Oct, [facility] [address] [facility] [id number], [place] [address]- 4535 Oct, [facility] [address] [facility] [id number], [place] [address]- 1214 Oct, [facility] [address] [id number], [place] [address]- 2092 Sep, [facility] [address] [facility] [id number], [place] [address]- 8967 Sep, [facility] [address]00565100[place], [place] [address]- 0745 Sep, [facility] [address]00565100[place], [place] [address]- 5403 Sep, [facility] [address]00565100[place], [place] [address]- 5673 Aug, [facility] [address] [id number], [place] [address]- 2589 Oct, [facility] [address] [id number], [place] [address]- 8914 Oct, [facility] [address] [id number], [place] [address]- 0412 May, IMMUNIZATIONS No Known Immunizations SOCIAL HISTORY Never Assessed 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
--- OUTSIDE RECORDS SUMMARY | 2018-12-11 10:36 | XMS REPORT ---
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 Active Problem Edema 782.3 Active Problem Screening for malignant neoplasm of the cervix V76.2 Active Problem Candidiasis of vulva and vagina 112.1 Active Problem Need for prophylactic vaccination and inoculation, Influenza V04.81 Active Problem Unspecified breast screening V76.10 Active Medications No Known Medications Procedures Procedure Coding System Code Date SINGLE IMMUNIZATION ADMIN CPT-4 44145 Sep 28, 2015 FLUARIX QUAD (3 & UP)-GSK-2014 CPT-4 89935 Sep 28, 2015 Results No Known Results Immunizations Vaccine Administration Date FLUARIX QUAD (3 & UP)-GSK-2014Sep 28, 2015 Summary Purpose e[employer] Submission
--- OUTSIDE RECORDS SUMMARY | 2018-12-11 10:36 | XMS REPORT ---
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 Name Role Phone SANJEEV PHELPS Unavailable PROBLEMS Type Condition ICD9-CM Code ZUK93-CV Code Onset Dates Condition Status SNOMED Code Problem Stress incontinence of urine N39.3 Active 69687216 Problem Anxiety F41.9 Active 73826210 Problem Anxiety disorder, unspecified F41.9 Active 117956753 Problem Unspecified episodic mood disorder F39 Active 756162641 Problem Unspecified personality disorder F60.9 Active 15244248 ALLERGIES No Information ENCOUNTERS Encounter Location Date Diagnosis [facility] [facility] [id number] [place] [address] 96634- 0174 Feb, [place] [facility] [id number] [place] [address] 06067- 5980 Feb, Anxiety disorder, unspecified F41.9 [place] [facility] [id number] [place] [address] 08194- 9336 Jan, Unspecified episodic mood disorder F39 ; Anxiety disorder, unspecified F41.9 and Unspecified personality disorder F60.9 [facility] [facility] [id number] [place] [address] 00129- 4288 Jan, Anxiety F41.9 [place] [id number] [place] [address] 04763- 8269 Jan, Anxiety disorder, unspecified F41.9 [place] [id number] [place] [address] 51662- 7436 Dec, Unspecified episodic mood disorder F39 ; Anxiety disorder, unspecified F41.9 and Unspecified personality disorder F60.9 [place] [id number] [place] [address] [place] [address] 1305 08 Dec, 2017 Anxiety F41.9 [facility] [id number] [place] [address] 42853- 8386 Dec, Anxiety disorder, unspecified F41.9 [facility] [address] [address]- 9436 Dec, Unspecified episodic mood disorder F39 ; Anxiety disorder, unspecified F41.9 and Unspecified personality disorder F60.9 [facility] [id number] [place] [address] 96896- 2182 Nov, [facility] [id number] [place] [address] 20299- 9271 Nov, [facility] [id number] [place] [address] 02281- 9198 Nov, Unspecified episodic mood disorder F39 ; Anxiety disorder, unspecified F41.9 and Unspecified personality disorder F60.9 [facility] [id number] [place] [address] 81334- 5433 Nov, Anxiety disorder, unspecified F41.9 [facility] [id number] [place] [address] 08556- 5708 Oct, Unspecified episodic mood disorder F39 ; Anxiety disorder, unspecified F41.9 and Unspecified personality disorder F60.9 [facility] [address] [place] [address] 14661- 5575 Oct, Vaginal yeast infection B37.3 [facility] [address] [address]- 0481 Oct, [facility] [id number] [place] [address] 23755- 7256 Oct, Anxiety disorder, unspecified F41.9 [facility] [address] [address]- 1010 Oct, Routine gynecological examination Z01.419 ; Screening for breast cancer Z12.31 and Vaginal yeast infection B37.3 [facility] [id number] [place] [address] 35053- 7067 Sep, Unspecified episodic mood disorder F39 ; Anxiety disorder, unspecified F41.9 and Unspecified personality disorder F60.9 [facility] [id number] [place] [address] 06069- 5379 Sep, [facility] [address] 76402- 5785 Sep, Anxiety disorder, unspecified F41.9 [facility] [address] 64803- 5734 Sep, Bronchitis J40 and Stress incontinence of urine N39.3 [facility] [address] 05566- 0031 Sep, Stress incontinence of urine N39.3 ; Bronchitis J40 and Anxiety F41.9 [facility] [id number] [place] [address] 49123- 1304 Sep, [facility] [address] 26082- 2657 Sep, Unspecified episodic mood disorder F39 ; Anxiety disorder, unspecified F41.9 and Unspecified personality disorder F60.9 [facility] [id number] [place] [address] 93343- 4610 Aug, Anxiety F41.9 ; Stress incontinence of urine N39.3 and Encounter for immunization Z23 [facility] [id number] [place] [address] 15430- 6198 Aug, Anxiety disorder, unspecified F41.9 [facility] [id number] [place] [address] 46441- 9560 Jul, Unspecified episodic mood disorder F39 ; Anxiety disorder, unspecified F41.9 and Unspecified personality disorder F60.9 [facility] [address] 41448- 8652 Jul, [facility] [address] [address]- 8159 Jul, Unspecified episodic mood disorder F39 ; Anxiety disorder, unspecified F41.9 and Unspecified personality disorder F60.9 [facility] [address] [place] [address] 73597- 2589 Jul, Anxiety disorder, unspecified F41.9 [facility] [id number] [place] [address] 59278- 9822 Jun, Unspecified episodic mood disorder F39 ; Anxiety disorder, unspecified F41.9 and Unspecified personality disorder F60.9 [facility] [id number] [place] [address] 61363- 5209 Jun, Anxiety disorder, unspecified F41.9 [facility] [id number] [place] [address] 76048- 6853 Jun, Unspecified episodic mood disorder F39 ; Anxiety disorder, unspecified F41.9 and Unspecified personality disorder F60.9 [facility] [address] [place] [address] 14477- 5511 Jun, [facility] [id number] [place] [address] 25899- 5042 May, Anxiety disorder, unspecified F41.9 [facility] [address] [place] [address] 37435- 0627 May, Unspecified episodic mood disorder F39 ; Anxiety disorder, unspecified F41.9 and Unspecified personality disorder F60.9 [facility] [address] [place] [address] 00306- 4439 Apr, Anxiety disorder, unspecified F41.9 [facility] [address] [place] [address] 50205- 5528 March, Unspecified episodic mood disorder F39 ; Anxiety disorder, unspecified F41.9 and Unspecified personality disorder F60.9 [facility] [address] [address]- 1580 March, Bronchitis J40 [facility] [id number] [place] [address] 35258- 8001 March, Unspecified episodic mood disorder F39 ; Anxiety disorder, unspecified F41.9 and Unspecified personality disorder F60.9 [facility] [id number] [place] [address] 47819- 0727 Feb, [facility] [id number] [place] [address] 31492- 4566 Feb, Unspecified episodic mood disorder F39 ; Anxiety disorder, unspecified F41.9 and Unspecified personality disorder F60.9 [facility] [id number] [place] [address] 21834- 2106 Feb, Bronchitis J40 [facility] [id number] [place] [address] 65610- 0731 Feb, Unspecified episodic mood disorder F39 ; Anxiety disorder, unspecified F41.9 and Unspecified personality disorder F60.9 [facility] [id number] [place] [address] 64671- 2043 Jan, Unspecified episodic mood disorder F39 ; Anxiety disorder, unspecified F41.9 and Unspecified personality disorder F60.9 [facility] [address] [address]- 2062 Jan, Bronchitis J40 [facility] [address] [place] [address] 75154- 4713 Jan, Unspecified episodic mood disorder F39 ; Anxiety disorder, unspecified F41.9 and Unspecified personality disorder F60.9 [facility] [address] [place] [address] 21786- 4836 Dec, Anxiety F41.9 [facility] [address] [place] [address] 33409- 8542 Dec, Unspecified episodic mood disorder F39 ; Anxiety disorder, unspecified F41.9 and Unspecified personality disorder F60.9 [facility] [id number] [address] Dec, [facility] [address] [place] [address] 21102- 5599 Dec, Unspecified episodic mood disorder F39 ; Anxiety disorder, unspecified F41.9 and Unspecified personality disorder F60.9 [facility] [address] [place] [address] 49054- 7647 Nov, [facility] [address] [place] [address] 62739- 1409 Oct, Unspecified episodic mood disorder F39 ; Anxiety disorder, unspecified F41.9 and Unspecified personality disorder F60.9 [facility] [address] [address]- 4221 Oct, [facility] [address] [place] [address] 15901 -7394 Oct, Acute upper respiratory infection, unspecified J06.9 ; Other viral agents as the cause of diseases classified elsewhere B97.89 and Cough R05 [facility] [address] [place] [address] 67840- 6131 Aug, Unspecified episodic mood disorder F39 ; Anxiety disorder, unspecified F41.9 and Unspecified personality disorder F60.9 [facility] [address] [address]- 6030 Aug, [facility] [address] [address]- 8065 Aug, [facility] [id number] [place] [address] 91878- 5086 Aug, [facility] [address] [place] [address] 84735- 0939 Aug, Visit for TB skin test Z11.1 [facility] [id number] [address]- 4431 Jul, [facility] [address] [facility] [id number] [address]- 0616 Jul, [facility] [id number] [address]- 5841 Jul, [facility] [address] [address]- 4556 Jul, [facility] [id number] [address]- 6250 Jul, [facility] [address] [address]- 8686 Jul, Unspecified episodic mood disorder F39 ; Anxiety disorder, unspecified F41.9 and Unspecified personality disorder F60.9 [facility] [address] [address]- 9655 Jun, [facility] [address] [address]- 5480 Jun, Unspecified episodic mood disorder F39 ; Anxiety disorder, unspecified F41.9 and Unspecified personality disorder F60.9 [facility] [address] [address]- 3955 Jun, [facility] [address] [address]- 4947 May, Unspecified episodic mood disorder F39 ; Anxiety disorder, unspecified F41.9 and Unspecified personality disorder F60.9 [facility] [id number] [address]- 5550 May, [facility] [id number] [address]- 4791 May, [facility] [id number] [address]- 4104 May, Edema, unspecified R60.9 [facility] [address] [address]- 6583 Apr, [facility] [id number] [place] [address] 24063- 0930 Apr, Unspecified episodic mood disorder F39 ; Anxiety disorder, unspecified F41.9 and Unspecified personality disorder F60.9 [place] [id number] [place] [address] 74111- 4102 Apr, Anxiety F41.9 [place] [facility] [id number] [place] [address] 28400- 8254 March, Unspecified episodic mood disorder F39 ; Anxiety disorder, unspecified F41.9 and Unspecified personality disorder F60.9 [facility] [id number] [place] [address] 08682- 8969 March, Unspecified episodic mood disorder F39 ; Anxiety disorder, unspecified F41.9 and Unspecified personality disorder F60.9 [facility] [address] [place] [address] 60403- 0561 Feb, Anxiety F41.9 [place] [id number] [place] [address] 25383- 8793 Feb, Unspecified episodic mood disorder F39 ; Anxiety disorder, unspecified F41.9 and Unspecified personality disorder F60.9 [facility] [address] [place] [address] 63421- 9508 Jan, Unspecified episodic mood disorder F39 ; Anxiety disorder, unspecified F41.9 and Unspecified personality disorder F60.9 [place] [address] [place] [address] 01505- 3207 Jan, Unspecified episodic mood disorder F39 ; Anxiety disorder, unspecified F41.9 and Unspecified personality disorder F60.9 [place] [address] [place] [address] 84788- 0645 Jan, Edema, unspecified R60.9 [facility] [id number] [place] [address] 16835- 1529 Dec, [facility] [id number] [place] [address] 88966- 3385 Dec, [facility] [id number] [place] [address] 37113- 0010 Dec, [facility] [id number] [place] [address] 28635- 7770 Dec, Unspecified episodic mood disorder F39 ; Anxiety disorder, unspecified F41.9 and Unspecified personality disorder F60.9 [facility] [id number] [place] [address] 86825- 2707 Nov, [facility] [id number] [place] [address] 70068- 9669 Nov, Unspecified episodic mood disorder F39 ; Anxiety disorder, unspecified F41.9 and Unspecified personality disorder F60.9 [facility] [address] [place] [address] 54854- 0084 Oct, Unspecified episodic mood disorder F39 ; Anxiety disorder, unspecified F41.9 and Unspecified personality disorder F60.9 [facility] [id number] [place] [address] 31752- 3996 Oct, Unspecified episodic mood disorder F39 ; Anxiety disorder, unspecified F41.9 and Unspecified personality disorder F60.9 [facility] [id number] [place] [address] 68223- 2868 Sep, Unspecified episodic mood disorder F39 ; Anxiety disorder, unspecified F41.9 and Unspecified personality disorder F60.9 [facility] [id number] [place] [address] 39066- 9055 Sep, Encounter for immunization Z23 [facility] [address] [place] [address] 50329- 6167 10 Sep, 2015 Edema of left lower extremity R60.0 [facility] [id number] [place] [address] 54047- 6398 Aug, Unspecified episodic mood disorder F39 ; Anxiety disorder, unspecified F41.9 and Unspecified personality disorder F60.9 [facility] [address] [place] [address] 71788- 3504 Aug, [facility] [address] [place] [address] 37601- 9426 Aug, Edema of left lower extremity R60.0 [facility] [id number] [place] [address] 54420- 2612 Aug, [facility] [id number] [place] [address] 05190- 2758 Aug, Unspecified episodic mood disorder F39 ; Anxiety disorder, unspecified F41.9 and Unspecified personality disorder F60.9 [facility] [id number] [place] [address] 42730- 2807 Jul, Unspecified episodic mood disorder 296.90 ; Anxiety disorder , unspecified 300.00 and Unspecified personality disorder 301.9 [facility] [address] [place] [address] 84348- 0108 Jul, Unspecified episodic mood disorder 296.90 ; Anxiety disorder , unspecified 300.00 and Unspecified personality disorder 301.9 [facility] [address] [address]- 8308 Jul, [facility] [address] [place] [address] 36732- 6523 Jun, Unspecified episodic mood disorder 296.90 ; Anxiety disorder , unspecified 300.00 and Unspecified personality disorder 301.9 [facility] [id number] [place] [address] 44220- 7928 May, Unspecified episodic mood disorder 296.90 ; Anxiety disorder , unspecified 300.00 and Unspecified personality disorder 301.9 [facility] [address] [address]- 3552 May, Anxiety disorder, unspecified 300.00 [facility] [address] [address]- 9354 May, Anxiety disorder, unspecified 300.00 and Edema 782.3 [facility] [address] [place] [address] 59073- 7215 May, Unspecified episodic mood disorder 296.90 ; Anxiety disorder , unspecified 300.00 and Unspecified personality disorder 301.9 [facility] [id number] [place] [address] 03411- 0992 Apr, [facility] [id number] [place] [address] 83844- 6385 Apr, Unspecified episodic mood disorder 296.90 ; Anxiety disorder , unspecified 300.00 and Personality disorder, unspecified 301.9 [facility] [id number] [place] [address] 27277- 7693 Apr, Unspecified episodic mood disorder 296.90 ; Anxiety disorder , unspecified 300.00 and Unspecified personality disorder 301.9 [facility] [id number] [address]- 0318 March, [facility] [id number] [place] [address] 01306- 1726 March, Unspecified episodic mood disorder 296.90 ; Anxiety disorder , unspecified 300.00 and Unspecified personality disorder 301.9 [facility] [address] [place] [address] 26745- 9880 March, Unspecified episodic mood disorder 296.90 ; Anxiety disorder 300.00 and Unspecified personality disorder 301.9 [facility] [address] [address]- 1398 March, [facility] [id number] [place] [address] 79309- 3236 March, [facility] [address] [address]- 6527 Feb, [facility] [place] [facility] [address] [facility] [id number] [place] [address]- 2546 14 Feb, 2014 [facility] [place] [facility] [address] [id number] [place] [address]- 9056 13 Feb, 2015 [facility] [place] [facility] [address] [id number] [place] [address]- 2546 30 Jan, 2015 [facility] [place] [facility] [address] [id number] [place] [address]- 2546 30 Jan, 2015 [facility] [place] [facility] [address] [id number] [place] [address]- 2546 Jan, [facility] [place] [facility] [address] [id number] [place] [address]- 7476 Jan, [facility] [place] [facility] [address] [id number] [place] [address]- 3276 Jan, [facility] [place] [facility] [address] [facility] [id number] [place] [address]- 2646 Jan, [facility] [place] [facility] [address] [facility] [id number] [place] [id number] Jan, [facility] [place] [facility] [address] [id number] [place] [address]- 6447 Jan, [facility] [place] [facility] [address] [id number] [place] [address]- 8952 Jan, [facility] [place] [facility] [address] [id number] [place] [address]- 5246 Jan, 2014 [facility] [place] [facility] [address] [id number] [place] [address]- 4306 Jan, [facility] [place] [facility] [address] [id number] [place] [address]- 9966 Jan, [facility] [place] [facility] [address] [id number] [place] [address]- 2546 Jan, [facility] [place] [facility] [address] [facility] [id number] [place] [address]- 4646 Jan, 2014 [facility] [place] [facility] [address] [id number] [place] [address]- 9500 Jan, 2014 [facility] [place] [facility] [address] [id number] [place] [address]- 7513 Jan, 2014 [facility] [place] [facility] [address] [id number] [place] [address]- 0780 Dec, 2014 [facility] [place] [facility] [address] [id number] [place] [address]- 7353 Dec, 2014 [facility] [place] [facility] [address] [id number] [place] [address]- 2171 Dec, [facility] [place] [facility] [address] [id number] [place] [address]- 3042 Dec, [facility] [place] [facility] [address] [facility] [id number] [place] [address]- 3777 Nov, [facility] [place] [facility] [address] [id number] [place] [address]- 9725 Nov, [facility] [place] [facility] [address] [id number] [place] [address]- 0845 Nov, [facility] [place] [facility] [address] [facility] [id number] [place] [address]- 5450 Nov, [facility] [place] [facility] [address] [id number] [address]- 0261 Oct, [facility] [place] [facility] [address] [id number] [address]- 1282 Oct, [facility] [place] [facility] [address] [id number] [place] [address]- 6851 Oct, [facility] [place] [facility] [address] [id number] [place] [address]- 3759 Oct, [facility] [place] [facility] [address] [facility] [id number] [place] [address]- 6049 Oct, [facility] [place] [facility] [address] [id number] [place] [address]- 2181 Oct, [facility] [place] [facility] [address] [id number] [place] [address]- 2696 Oct, [facility] [place] [facility] [address] [id number] [place] [address] Oct, [facility] [place] [facility] [address] [id number] [place] [address] Oct, [facility] [place] [facility] [address] [id number] [place] [address] Oct, [facility] [place] [facility] [address] [id number] [place] [address] Oct, [facility] [place] [facility] [address] [id number] [place] [address] Oct, [facility] [place] [facility] [address] [id number] [place] [address] Oct, [facility] [place] [facility] [address] [id number] [place] [address] Oct, [facility] [place] [facility] [address] [id number] [place] [address] Oct, [facility] [place] [facility] [address] [id number] [place] [address] Oct, [facility] [place] [facility] [address] [id number] [place] [address] Sep, [facility] [place] [facility] [address] [id number] [place] [address] Sep, [facility] [place] [facility] [address] [id number] [place] [address] Sep, [facility] [place] [facility] [address] [id number] [place] [address] Sep, [facility] [place] [facility] [address] [id number] [place] [address] Sep, [facility] [place] [facility] [address] [id number] [place] [address] Sep, [facility] [place] [facility] [address] [id number] [place] [address] Sep, [facility] [place] [facility] [address] [id number] [place] [address] Sep, [facility] [place] [facility] [address] [id number] [place] [address] Sep, [facility] [place] [facility] [address] [address] [id number] [place] [address] Sep, [facility] [place] [facility] [address] [id number] [place] [address] Aug, [facility] [place] [facility] [address] [id number] [place] [address] 7824 Aug, [facility] [place] [facility] [address] [id number] [place] [address] 9303 Aug, [facility] [place] [facility] [address] [id number] [place] [address] 387[address] Aug, [facility] [place] [facility] [address] [id number] [place] [address] 1293 Aug, [facility] [place] [facility] [address] [id number] [place] [address] 8189 Aug, [facility] [place] [facility] [address] [id number] [place] [address]336 Aug, [facility] [place] [facility] [address] [id number] [place] [address] 9362 Aug, [facility] [place] [facility] [address] [id number] [place] [address] 7622 Jul, [facility] [place] [facility] [address] [id number] [place] [address] 29 Jul, 2014 [facility] [place] [facility] [address] [id number] [place] [address] 1532 Jul, [facility] [place] [facility] [address] [id number] [place] [address] 5268 Jul, [facility] [place] [facility] [address] [id number] [place] [address] 6389 Jul, [facility] [place] [facility] [address] [id number] [place] [address] 9275 Jul, [facility] [place] [facility] [address] [id number] [place] [address]- 4343 Jun, [facility] [place] [facility] [address] [id number] [place] [address]- 1883 Jun, [facility] [place] [facility] [address] [id number] [place] [address]- 7951 May, [facility] [place] [facility] [address] [id number] [place] [address]- 9558 May, [facility] [place] [facility] [address] [id number] [place] [address]- 3298 May, [facility] [place] [facility] [address] [id number] [place] [address]- 0894 May, [facility] [place] [facility] [address] [id number] [place] [address]- 2160 May, [facility] [place] [facility] [address] [id number] [place] [address]- 2044 May, [facility] [place] [facility] [address] [id number] [place] [address]- 2614 May, [facility] [place] [facility] [address] [id number] [place] [address]- 7723 May, [facility] [place] [facility] [address] [id number] [place] [address]- 8386 Apr, [facility] [place] [facility] [address] [id number] [place] [address]- 3657 Apr, [facility] [place] [facility] [address] [id number] [place] [address] 9369 March, [facility] [address] [id number] [place] [address] 0077 March, [facility] [address] [id number] [place] [address] 6[address] Feb, [facility] [address] [id number] [place] [address]- 0809 Feb, [facility] [address] [id number] [place] [address] 5[address] Feb, [facility] [address] [id number] [place] [address]- 6619 Feb, [facility] [address] [id number] [place] [address] 1904 Feb, [facility] [address] [id number] [place] [address]- 9697 Feb, [facility] [address] [id number] [place] [address]- 9243 Feb, [facility] [address] [id number] [place] [address] 6012 Feb, [facility] [address] [id number] [place] [address]- 3934 Feb, [facility] [place] [facility] [address] [id number] [place] [address]- 0014 Feb, [facility] [address] [id number] [place] [address]- 2886 Jan, [facility] [place] [facility] [address] [id number] [place] [address]- 7037 Jan, [facility] [place] [facility] [address] [id number] [place] [address]- 2479 Jan, [facility] [place] [facility] [address] [id number] [place] [address] Jan, [facility] [place] [facility] [address] [id number] [place] [address]- 4318 Jan, [facility] [place] [facility] [address] [id number] [place] [address]- 9805 Dec, [facility] [place] [facility] [address] [id number] [place] [address]- 1260 Dec, [facility] [place] [facility] [address] [id number] [place] [address]- 6436 Dec, [facility] [place] [facility] [address] [id number] [place] [address]- 8048 Dec, [facility] [place] [facility] [address] [id number] [place] [address]- 6042 Dec, [facility] [place] [facility] [address] [id number] [place] [address]- 7728 Dec, [facility] [place] [facility] [address] [id number] [place] [address]- 7940 Nov, [facility] [place] [facility] [address] [id number] [place] [address]- 5024 Nov, [facility] [place] [facility] [address] [id number] [place] [address]- 9760 Nov, [facility] [place] [facility] [address] [id number] [place] [address]- 2330 Nov, [facility] [place] [facility] [address] [id number] [place] [address]- 2049 Nov, [facility] [place] [facility] [address] [id number] [place] [address]- 4387 Nov, [facility] [place] [facility] [address] [id number] [place] [address]- 1476 Nov, [facility] [place] [facility] [address] [id number] [place] [address]- 6318 Nov, [facility] [place] [facility] [address] [id number] [place] [address]- 0482 Oct, 2012 [facility] [address] [id number] [place] [address] 6573 Oct, [facility] [address] [id number] [place] [address] 06 Oct, 2012 [facility] [address] [id number] [place] [address]- 2009 06 Oct, 2012 [facility] [address] [id number] [place] [address]- 3058 05 Oct, 2012 [facility] [address] [id number] [place] [address]- 2554 05 Oct, 2013 [facility] [address] [id number] [place] [address]- 8118 Oct, [facility] [address] [id number] [place] [address]- 1047 Oct, [facility] [address] [id number] [place] [address]- 1163 Sep, [facility] [address] [id number] [place] [address]- 6563 Sep, [facility] [address] [facility] [id number] [place] [address]- 7978 14 Sep, 2013 [facility] [address] [id number] [place] [address]- 9644 14 Sep, 2013 [facility] [address] [id number] [place] [address]- 6276 07 Sep, 2013 [facility] [address] [id number] [place] [address]- 1066 07 Sep, 2013 [facility] [address] [id number] [place] [address]- 9843 04 Sep, 2013 [facility] [address] [id number] [place] [address]- 4374 Sep, [facility] [place] [facility] [address] [id number] [place] [address]- 6757 Aug, [facility] [place] [facility] [address] [id number] [place] [address]- 0970 Aug, [facility] [place] [facility] [address] [id number] [place] [address]- 2546 Aug, [facility] [place] [facility] [address] [id number] [place] [address] 2541 Jul, [facility] [place] [facility] [address] [id number] [place] [address]- 4969 Jun, [facility] [place] [facility] [address] [id number] [place] [address]- 9925 Jun, [facility] [place] [facility] [address] [id number] [place] [address]- 8756 Jun, [facility] [place] [facility] [address] [id number] [place] [address]- 4154 Jun, [facility] [place] [facility] [address] [id number] [place] [address]- 1110 Jun, [facility] [place] [facility] [address] [id number] [place] [address]- 3625 May, [facility] [place] [facility] [address] [id number] [place] [address]- 2546 May, [facility] [place] [facility] [address] [id number] [place] [address]- 2543 Apr, [facility] [place] [facility] [address] [id number] [place] [address]- 2540 Apr, [facility] [place] [facility] [address] [id number] [place] [address]- 2546 March, [facility] [place] [facility] [address] [id number] [place] [address]- 2546 March, [facility] [place] [facility] [address] [id number] [place] [address]- 5558 March, [facility] [address] [id number] [place] [address]- 2455 March, [facility] [address] [id number] [place] [address]- 4570 March, [facility] [address] [id number] [place] [address]- 3695 Feb, [facility] [address] [id number] [place] [address]- 8076 Feb, [facility] [address] [id number] [place] [address]- 1220 Feb, [facility] [address] [id number] [place] [address]- 2395 Jan, [facility] [address] [id number] [address]- 7480 Dec, [facility] [address] [id number] [place] [address]- 2019 Dec, [facility] [address] [facility] [id number] [place] [address]- 9111 Dec, [facility] [address] [facility] [id number] [place] [address]- 3478 Dec, [facility] [address] [facility] [id number] [place] [address]- 2933 Nov, [facility] [address] [id number] [place] [address]- 0289 Nov, [facility] [address] [id number] [place] [address]- 1510 Nov, [facility] [address] [id number] [place] [address]- 6310 Nov, [facility] [address] [facility] [id number] [place] [address]- 5936 Oct, [facility] [place] [facility] [address] [id number] [place] [address]- 5469 Oct, [facility] [place] [facility] [address] [id number] [place] [address]- 7396 Oct, [facility] [place] [facility] [address] [id number] [place] [address]- 8708 Oct, [facility] [place] [facility] [address] [id number] [place] [address]- 4957 Sep, [facility] [place] [facility] [address] [id number] [place] [address]- 2714 14 Sep, 2012 [facility] [place] [facility] [address] [id number] [place] [address]- 2446 Sep, [facility] [place] [facility] [address] [id number] [place] [address]- 0072 Sep, [facility] [place] [facility] [address] [id number] [place] [address]- 2908 Sep, [facility] [place] [facility] [address] [id number] [place] [address]- 5928 Sep, [facility] [place] [facility] [address] [id number] [place] [address]- 5717 Aug, [facility] [place] [facility] [address] [id number] [place] [address]- 0970 Aug, [facility] [place] [facility] [address] [id number] [place] [address]- 4033 Aug, [facility] [place] [facility] [address] [id number] [place] [address]- 8910 Jul, [facility] [place] [facility] [address] [id number] [place] [address]- 7106 04 Jul, 2012 [facility] [place] [facility] [address] [id number] [place] [address]- 2635 Jun, [facility] [place] [facility] [address] [id number] [place] [address]- 8601 30 May, 2012 [facility] [place] [facility] [address] [id number] [place] [address]- 3085 May, [facility] [place] [facility] [address] [id number] [place] [address]- 6979 Apr, [facility] [place] [facility] [address] [id number] [place] [address]- 0266 Apr, [facility] [place] [facility] [address] [id number] [place] [address]- 7289 March, [facility] [place] [facility] [address] [id number] [place] [address]- 4294 March, [facility] [place] [facility] [address] [id number] [place] [address]- 0164 Feb, [facility] [place] [facility] [address] [id number] [place] [address]- 8537 16 Feb, 2012 [facility] [place] [facility] [address] [id number] [place] [address]- 4263 Feb, [facility] [place] [facility] [address] [id number] [place] [address]- 7603 Feb, [facility] [place] [facility] [address] [id number] [place] [address]- 4632 Jan, [facility] [place] [facility] [address] [id number] [place] [address]- 1886 Jan, [facility] [place] [facility] [address] [id number] [place] [address]- 3859 Dec, [facility] [place] [facility] [address] [id number] [place] [address]- 0558 Dec, [facility] [place] [facility] [address] [id number] [place] [address]- 3626 Dec, [facility] [place] [facility] [address] [id number] [place] [address]- 6455 Dec, [facility] [place] [facility] [address] [id number] [place] [address]- 1459 20 Dec, 2011 [facility] [place] [facility] [address] [id number] [place] [address]- 1996 15 Dec, 2011 [facility] [place] [facility] [address] [id number] [place] [address]- 2546 10 Dec, 2011 [facility] [place] [facility] [address] [id number] [place] [address]- 0266 09 Dec, 2011 [facility] [place] [facility] [address] [id number] [place] [address]- 254 08 Dec, 2011 [facility] [place] [facility] [address] [id number] [place] [address]- 1706 07 Dec, 2011 [facility] [place] [facility] [address] [facility] [id number] [place] [address]- 1607 Dec, [facility] [place] [facility] [address] [id number] [place] [address]- 8075 Dec, [facility] [place] [facility] [address] [id number] [place] [address]- 9199 Dec, [facility] [place] [facility] [address] [facility] [id number] [place] [address]- 2919 Nov, [facility] [place] [facility] [address] [facility] [id number] [place] [address]- 9119 Nov, [facility] [place] [facility] [address] [id number] [place] [address]- 8118 Nov, [facility] [place] [facility] [address] [id number] [place] [address]- 0582 Nov, [facility] [place] [facility] [address] [id number] [place] [address]- 1612 Nov, [facility] [place] [facility] [address] [facility] [id number] [place] [address]- 6034 Nov, [facility] [place] [facility] [address] [id number] [place] [address]- 5472 30 Oct, 2011 [facility] [place] [facility] [address] [id number] [place] [address]- 5727 Oct, [facility] [place] [facility] [address] [id number] [place] [address]- 2873 Sep, [facility] [place] [facility] [address] [id number] [place] [address]- 7554 Sep, [facility] [place] [facility] [address] [id number] [place] [address]- 1292 Sep, [facility] [place] [facility] [address] [id number] [place] [address]- 9561 Sep, [facility] [place] [facility] [address] [id number] [place] [address]- 4914 Sep, [facility] [place] [facility] [address] [facility] [id number] [place] [address]- 3120 March, [facility] [place] [facility] [address] [id number] [place] [address]- 8731 Oct, [facility] [place] [facility] [address] [facility] [id number] [place] [address]- 8236 Oct, [facility] [place] [facility] [address] [facility] [id number] [place] [address]- 3610 Oct, [facility] [place] [facility] [address] [id number] [place] [address]- 9874 24 Sep, 2010 [facility] [place] [facility] [address] [id number] [place] [address]- 6623 17 Sep, 2010 [facility] [place] [facility] [address] [id number] [place] [address]- 5920 17 Sep, 2010 [facility] [place] [facility] [address] [facility] [id number] [place] [address]- 5187 16 Sep, 2010 [facility] [place] [facility] [address] [facility] [id number] [place] [address]- 3278 26 Aug, 2010 [facility] [place] [facility] [address] [facility] [id number] [place] [address]- 5696 Oct, [facility] [address] [facility] [id number] [place] [address]- 1591 Oct, [facility] [address] [facility] [id number] [place] [address]- 9283 May, IMMUNIZATIONS No Known Immunizations SOCIAL HISTORY Never Assessed REASON FOR VISIT f/u PLAN OF CARE Activity Details Follow Up 2 Weeks Reason: F/U VITAL SIGNS MEDICATIONS Unknown Medications RESULTS No Results PROCEDURES Procedure Date Ordered Result Body Site Psychotherapy, patient &/family, 45 minutes, established patient Jun 09, 2017 INSTRUCTIONS MEDICATIONS ADMINISTERED No Known Medications MEDICAL (GENERAL) HISTORY Type Description Date Medical History hypertension Medical History panic attacks Surgical History cholecystectomy 2008 Hospitalization History surgery
[2018-12-11 10:37] LABS: BACTERIA,URINE TRACE /HPF; SQUAMOUS EPITHELIAL CELL,UR 0-2 /HPF; WBC,URINE RARE /HPF
--- OUTSIDE RECORDS SUMMARY | 2018-12-11 10:37 | XMS REPORT ---
Author Author SANJEEV PHELPS [facility] Address [address] [place] [address] Care Team Providers Care Senior Operator Name Role Phone SANJEEV PHELPS Unavailable PROBLEMS Type Condition ICD9-CM Code [id number] Code Onset Dates Condition Status SNOMED Code Problem Stress incontinence of urine N39.3 Active 77859352 Problem Anxiety F41.9 Active 37696506 Problem Anxiety disorder, unspecified F41.9 Active 915846520 Problem Unspecified episodic mood disorder F39 Active [id number] Problem Unspecified personality disorder F60.9 Active [id number] ALLERGIES No Information SOCIAL HISTORY Never Assessed PLAN OF CARE Activity Details Follow Up Next available Reason:BH F/U VITAL SIGNS MEDICATIONS Unknown Medications RESULTS No Results PROCEDURES Procedure Date Ordered Result Body Site Psychotherapy, patient &/family, 45 minutes, established patient March 27, 2017 IMMUNIZATIONS No Known Immunizations MEDICAL (GENERAL) HISTORY Type Description Date Medical History hypertension Medical History panic attacks Surgical History cholecystectomy 2009 Hospitalization History surgery
--- OUTSIDE RECORDS SUMMARY | 2018-12-11 10:37 | XMS REPORT ---
Author Author LEIDA ANDINO Organization [facility] Address [address] [place] [address] Care Team Providers Care Lead Loader Name Role Phone LEIDA ANDINO Unavailable PROBLEMS Type Condition ICD9-CM Code [id number] Code Onset Dates Condition Status SNOMED Code Problem Stress incontinence of urine N39.3 Active 51115318 Problem Anxiety F41.9 Active 87172706 Problem Anxiety disorder, unspecified F41.9 Active 415906779 Problem Unspecified episodic mood disorder F39 Active 506735300 Problem Unspecified personality disorder F60.9 Active 78128836 ALLERGIES No Information ENCOUNTERS Encounter Location Date Diagnosis [place] [id number] [place] [address] 71273- 9519 Apr, [place] [id number] [place] [address] 48233- 4410 March, Anxiety disorder, unspecified F41.9 [place] [id number] [place] [address] 78237- 5961 March, Unspecified episodic mood disorder F39 ; Anxiety disorder, unspecified F41.9 and Unspecified personality disorder F60.9 [place] [id number] [place] [address] 43958- 7170 March, Anxiety disorder, unspecified F41.9 [place] [id number] [place] [address] 22725- 9078 Feb, Unspecified episodic mood disorder F39 ; Anxiety disorder, unspecified F41.9 and Unspecified personality disorder F60.9 [place] [id number] [place] [address] 86731- 4831 Feb, Unspecified episodic mood disorder F39 ; Anxiety disorder, unspecified F41.9 and Unspecified personality disorder F60.9 [facility] [address], [place] [address] Feb, Anxiety disorder, unspecified F41.9 [facility] [id number] [place] [address] 33095- 5466 Jan, Unspecified episodic mood disorder F39 ; Anxiety disorder, unspecified F41.9 and Unspecified personality disorder F60.9 [facility] [id number] [place] [address] 79324- 8516 Jan, Anxiety F41.9 [facility] [id number] [place] [address] 28941- 7853 Jan, Anxiety disorder, unspecified F41.9 [facility] [id number] [place] [address] 17692- 1271 Dec, Unspecified episodic mood disorder F39 ; Anxiety disorder, unspecified F41.9 and Unspecified personality disorder F60.9 [facility] [id number] [place] [address] 37193- 8015 Dec, Anxiety F41.9 [facility] [id number] [place] [address] 83923- 3529 Dec, Anxiety disorder, unspecified F41.9 [facility] [address], [place] [address] 6748 Dec, Unspecified episodic mood disorder F39 ; Anxiety disorder, unspecified F41.9 and Unspecified personality disorder F60.9 [facility] [address], [place] [address] 5002 Nov, [facility] [id number] [place] [address] 66111- 8151 Nov, [facility] [id number] [place] [address] 88562- 8359 Nov, Unspecified episodic mood disorder F39 ; Anxiety disorder, unspecified F41.9 and Unspecified personality disorder F60.9 [place] [address] [address] 8213 Nov, Anxiety disorder, unspecified F41.9 [place] [id number] [place] [address] 24504- 0004 Oct, Unspecified episodic mood disorder F39 ; Anxiety disorder, unspecified F41.9 and Unspecified personality disorder F60.9 [place] [id number] [place] [address] 14954- 2322 Oct, Vaginal yeast infection B37.3 [place] [id number] [place] [address] 78777- 3230 Oct, [place] [id number] [place] [address] 73464- 7593 Oct, Anxiety disorder, unspecified F41.9 [place] [id number] [place] [address] 51418- 5919 Oct, Routine gynecological examination Z01.419 ; Screening for breast cancer Z12.31 and Vaginal yeast infection B37.3 [place] [id number] [place] [address] 33554- 2604 Sep, Unspecified episodic mood disorder F39 ; Anxiety disorder, unspecified F41.9 and Unspecified personality disorder F60.9 [place] [id number] [place] [address] 40147- 9189 Sep, [place] [id number] [place] [address] 17126- 1249 Sep, Anxiety disorder, unspecified F41.9 [place] [id number] [place] [address] 37987- 8872 Sep, Bronchitis J40 and Stress incontinence of urine N39.3 [place] [id number] [place] [address] 79848- 6397 Sep, Stress incontinence of urine N39.3 ; Bronchitis J40 and Anxiety F41.9 [place] [id number] [address]- 6666 Sep, [facility] [id number] [place] [address] 12877- 3709 Sep, Unspecified episodic mood disorder F39 ; Anxiety disorder, unspecified F41.9 and Unspecified personality disorder F60.9 [facility] [id number] [place] [address] 90737- 9981 Aug, Anxiety F41.9 ; Stress incontinence of urine N39.3 and Encounter for immunization Z23 [facility] [id number] [place] [address] 09444- 3148 Aug, Anxiety disorder, unspecified F41.9 [place] [id number] [place] [address] 65377- 3254 Jul, Unspecified episodic mood disorder F39 ; Anxiety disorder, unspecified F41.9 and Unspecified personality disorder F60.9 [place] [id number] [place] [address] 15462- 5691 Jul, [facility] [id number] [place] [address] 08349- 7608 Jul, Unspecified episodic mood disorder F39 ; Anxiety disorder, unspecified F41.9 and Unspecified personality disorder F60.9 [facility] [id number] [place] [address] 43442- 5440 Jul, Anxiety disorder, unspecified F41.9 [facility] [id number] [place] [address] 71907- 9647 Jun, Unspecified episodic mood disorder F39 ; Anxiety disorder, unspecified F41.9 and Unspecified personality disorder F60.9 [facility] [id number] [place] [address] 61967- 9707 Jun, Anxiety disorder, unspecified F41.9 [facility] [id number] [place] [address] 10238- 3802 Jun, Unspecified episodic mood disorder F39 ; Anxiety disorder, unspecified F41.9 and Unspecified personality disorder F60.9 [facility] [address], [place] [address]- 3067 Jun, [facility] [id number] [place] [address] 21792- 2300 May, Anxiety disorder, unspecified F41.9 [facility] [id number] [place] [address] 39398- 2548 May, Unspecified episodic mood disorder F39 ; Anxiety disorder, unspecified F41.9 and Unspecified personality disorder F60.9 [facility] [id number] [place] [address] 46907- 6466 Apr, Anxiety disorder, unspecified F41.9 [facility] [id number] [place] [address] 37380- 1404 March, Unspecified episodic mood disorder F39 ; Anxiety disorder, unspecified F41.9 and Unspecified personality disorder F60.9 [facility] [id number] [place] [address] 95909- 1202 March, Bronchitis J40 [facility] [id number] [place] [address] 03536- 2506 March, Unspecified episodic mood disorder F39 ; Anxiety disorder, unspecified F41.9 and Unspecified personality disorder F60.9 [facility] [id number] [place] [address] 04235- 1034 Feb, [facility] [id number] [place] [address] 84743- 3147 Feb, Unspecified episodic mood disorder F39 ; Anxiety disorder, unspecified F41.9 and Unspecified personality disorder F60.9 [facility] [id number] [place] [address] 29652- 9043 Feb, Bronchitis J40 [facility] [id number] [place] [address] 51865- 0145 Feb, Unspecified episodic mood disorder F39 ; Anxiety disorder, unspecified F41.9 and Unspecified personality disorder F60.9 [facility] [id number] [place] [address] 21902- 6049 Jan, Unspecified episodic mood disorder F39 ; Anxiety disorder, unspecified F41.9 and Unspecified personality disorder F60.9 [facility] [address], [place] [address]- 2426 Jan, Bronchitis J40 [facility] [id number] [place] [address] 41912- 3418 Jan, Unspecified episodic mood disorder F39 ; Anxiety disorder, unspecified F41.9 and Unspecified personality disorder F60.9 [facility] [id number] [place] [address] 51512- 4638 Dec, Anxiety F41.9 [place] [id number] [place] [address] 57665- 5341 Dec, Unspecified episodic mood disorder F39 ; Anxiety disorder, unspecified F41.9 and Unspecified personality disorder F60.9 [facility] [id number] [id number] Dec, [facility] [id number] [place] [address] 21146- 5116 Dec, Unspecified episodic mood disorder F39 ; Anxiety disorder, unspecified F41.9 and Unspecified personality disorder F60.9 [facility] [address], [place] [address]- 2019 Nov, [facility] [id number] [place] [address] 94354- 4325 Oct, Unspecified episodic mood disorder F39 ; Anxiety disorder, unspecified F41.9 and Unspecified personality disorder F60.9 [facility] [id number] [place] [address] 00462- 9770 Oct, [facility] [id number] [place] [address] 99401 -3844 Oct, Acute upper respiratory infection, unspecified J06.9 ; Other viral agents as the cause of diseases classified elsewhere B97.89 and Cough R05 [facility] [address], [place] [address]- 1785 Aug, Unspecified episodic mood disorder F39 ; Anxiety disorder, unspecified F41.9 and Unspecified personality disorder F60.9 [facility] [id number] [place] [address] 36918- 6502 Aug, [facility] [id number] [place] [address] 82541- 7129 Aug, [facility] [id number] [place] [address] 60872- 6038 Aug, [facility] [id number] [place] [address] 26426- 4487 Aug, Visit for TB skin test Z11.1 [facility] [id number] [address]- 4237 Jul, [facility] [id number] [place] [address] 48403- 5799 Jul, [facility] [id number], [place] [address]- 4513 Jul, [facility] [id number], [place] [address]- 9567 Jul, [facility] [address], [place] [address]- 3869 Jul, [facility] [id number] [place] [address] 31673- 5399 Jul, Unspecified episodic mood disorder F39 ; Anxiety disorder, unspecified F41.9 and Unspecified personality disorder F60.9 [facility] [address], [place] [address]- 5139 Jun, [facility] [id number] [address]- 9341 Jun, Unspecified episodic mood disorder F39 ; Anxiety disorder, unspecified F41.9 and Unspecified personality disorder F60.9 [facility] [id number] [place] [address] 41419- 2940 Jun, [facility] [id number] [place] [address] 82821- 2891 May, Unspecified episodic mood disorder F39 ; Anxiety disorder, unspecified F41.9 and Unspecified personality disorder F60.9 [facility] [id number] [place] [address] 85175- 6620 May, [facility] [id number] [place] [address] 07862- 5959 May, [facility] [id number] [place] [address] 51003- 8909 May, Edema, unspecified R60.9 [facility] [address], [place] [address]- 4102 Apr, [facility] [id number] [place] [address] 11616- 9150 Apr, Unspecified episodic mood disorder F39 ; Anxiety disorder, unspecified F41.9 and Unspecified personality disorder F60.9 [facility] [address], [place] [address]- 2714 Apr, Anxiety F41.9 [facility] [address], [place] [address]- 9382 March, Unspecified episodic mood disorder F39 ; Anxiety disorder, unspecified F41.9 and Unspecified personality disorder F60.9 [facility] [id number] [place] [address] 29906- 1113 March, Unspecified episodic mood disorder F39 ; Anxiety disorder, unspecified F41.9 and Unspecified personality disorder F60.9 [facility] [id number] [place] [address] 04823- 1704 Feb, Anxiety F41.9 [facility] [id number] [place] [address] 79558- 2301 Feb, Unspecified episodic mood disorder F39 ; Anxiety disorder, unspecified F41.9 and Unspecified personality disorder F60.9 [facility] [id number] [place] [address] 42567- 1248 Jan, Unspecified episodic mood disorder F39 ; Anxiety disorder, unspecified F41.9 and Unspecified personality disorder F60.9 [facility] [id number] [place] [address] 21183- 9084 Jan, Unspecified episodic mood disorder F39 ; Anxiety disorder, unspecified F41.9 and Unspecified personality disorder F60.9 [facility] [id number] [place] [address] 24515- 7658 Jan, Edema, unspecified R60.9 [facility] [id number] [place] [address] 51356- 9933 Dec, [facility] [id number] [place] [address] 93401- 6939 Dec, [facility] [id number] [place] [address] 89098- 0559 Dec, [facility] [id number] [place] [address] 12095- 4885 Dec, Unspecified episodic mood disorder F39 ; Anxiety disorder, unspecified F41.9 and Unspecified personality disorder F60.9 [facility] [id number] [place] [address] 97584- 4686 Nov, [facility] [id number] [place] [address] 77929- 9400 Nov, Unspecified episodic mood disorder F39 ; Anxiety disorder, unspecified F41.9 and Unspecified personality disorder F60.9 [facility] [id number] [place] [address]- 2546 Oct, Unspecified episodic mood disorder F39 ; Anxiety disorder, unspecified F41.9 and Unspecified personality disorder F60.9 [place] [id number] [place] [address] 28748- 1097 Oct, Unspecified episodic mood disorder F39 ; Anxiety disorder, unspecified F41.9 and Unspecified personality disorder F60.9 [place] [id number] [place] [address] 15868- 2080 Sep, Unspecified episodic mood disorder F39 ; Anxiety disorder, unspecified F41.9 and Unspecified personality disorder F60.9 [place] [id number] [place] [address] 42027- 7271 Sep, Encounter for immunization Z23 [place] [id number] [place] [address] 55758- 9563 Sep, Edema of left lower extremity R60.0 [facility] [id number] [place] [address] 64747- 8233 Aug, Unspecified episodic mood disorder F39 ; Anxiety disorder, unspecified F41.9 and Unspecified personality disorder F60.9 [place] [id number] [place] [address] 96984- 1076 Aug, [facility] [id number] [place] [address] 60910- 7029 Aug, Edema of left lower extremity R60.0 [facility] [id number] [place] [address] 97675- 8301 Aug, [facility] [id number] [place] [address] 90666- 7048 Aug, Unspecified episodic mood disorder F39 ; Anxiety disorder, unspecified F41.9 and Unspecified personality disorder F60.9 [facility] [id number] [place] [address] 75479- 1710 Jul, Unspecified episodic mood disorder 296.90 ; Anxiety disorder , unspecified 300.00 and Unspecified personality disorder 301.9 [facility] [address] [address]- 0998 Jul, Unspecified episodic mood disorder 296.90 ; Anxiety disorder , unspecified 300.00 and Unspecified personality disorder 301.9 [facility] [address] [place] [address]- 1207 Jul, [facility] [id number] [place] [address] 57616- 9734 Jun, Unspecified episodic mood disorder 296.90 ; Anxiety disorder , unspecified 300.00 and Unspecified personality disorder 301.9 [facility] [id number] [place] [address] 43110- 0739 May, Unspecified episodic mood disorder 296.90 ; Anxiety disorder , unspecified 300.00 and Unspecified personality disorder 301.9 [facility] [id number] [place] [address] 59696- 1409 May, Anxiety disorder, unspecified 300.00 [facility] [id number] [place] [address] 89752- 1696 May, Anxiety disorder, unspecified 300.00 and Edema 782.3 [facility] [id number] [place] [address] 93983- 5249 May, Unspecified episodic mood disorder 296.90 ; Anxiety disorder , unspecified 300.00 and Unspecified personality disorder 301.9 [facility] [address] [address]- 9110 Apr, [facility] [id number] [place] [address] 07654- 6714 Apr, Unspecified episodic mood disorder 296.90 ; Anxiety disorder , unspecified 300.00 and Personality disorder, unspecified 301.9 [facility] [place] [id number], [place] [address] Apr, Unspecified episodic mood disorder 296.90 ; Anxiety disorder , unspecified 300.00 and Unspecified personality disorder 301.9 [facility] [place] [address] [facility] [id number], [place] [address] March, [facility] [place] [id number], [place] [address] March, Unspecified episodic mood disorder 296.90 ; Anxiety disorder , unspecified 300.00 and Unspecified personality disorder 301.9 [facility] [place] [id number] [address] March, Unspecified episodic mood disorder 296.90 ; Anxiety disorder 300.00 and Unspecified personality disorder 301.9 [facility] [place] [id number] [address] March, [facility] [place] [id number], [place] [address] March, [facility] [place] [id number], [place] [address] Feb, [facility] [place] [id number], [place] [address] Feb, [facility] [place] [id number], [place] [address] Feb, [facility], [place] [address] [id number], [place] [address] Jan, [facility] [place] [id number], [place] [address] Jan, [facility] [place] [address] [id number], [place] [address] Jan, [facility] [place] [address] [id number], [place] [address] Jan, [facility] [place] [address] [id number], [place] [address] Jan, [facility] [place] [id number], [place] [address] Jan, [facility] [place] [facility] [address] [id number] [place] [id number] Jan, 2014 [facility] [place] [facility] [address] [id number] [place] [address]- 5022 Jan, 2014 [facility] [place] [facility] [address] [id number] [place] [address]- 0351 Jan, 2014 [facility] [place] [facility] [address] [id number] [place] [address]- 8926 Jan, 2014 [facility] [place] [facility] [address] [id number] [place] [address]- 5335 Jan, 2014 [facility] [place] [facility] [address] [id number] [place] [address]- 6543 Jan, 2014 [facility] [place] [facility] [address] [id number] [place] [address]- 1583 Jan, 2014 [facility] [place] [facility] [address] [id number] [place] [address]- 1977 Jan, [facility] [place] [facility] [address] [id number] [place] [address]- 1568 Jan, [facility] [place] [facility] [address] [id number] [place] [address]- 9859 Jan, [facility] [place] [facility] [address] [id number] [place] [address]- 0195 Dec, 2014 [facility] [place] [facility] [address] [id number], [place] [address]- 12[address] Dec, 2014 [facility] [place] [facility] [address] [id number] [place] [address] Dec, [facility] [place] [facility] [address] [id number] [place] [address]- 8650 Dec, 2014 [facility] [place] [facility] [address] [id number] [place] [address] Nov, [facility] [place] [facility] [address] [id number], [place] [address] 3457 Nov, [facility] [address] [id number] [place] [address]- 2770 Nov, [facility] [place] [facility] [address] [id number] [place] [address]- 1755 Nov, [facility] [place] [facility] [address] [id number] [place] [address]- 6199 Oct, [facility] [place] [facility] [address] [id number] [place] [address]- 9782 Oct, [facility] [place] [facility] [address] [id number] [place] [address]- 2288 Oct, [facility] [place] [facility] [address] [id number] [place] [address]- 0484 Oct, [facility] [place] [facility] [address] [id number] [place] [address]- 1817 Oct, [facility] [place] [facility] [address] [id number] [place] [address]- 1996 Oct, [facility] [place] [facility] [address] [id number] [place] [address]- 6158 Oct, [facility] [place] [facility] [address] [id number] [place] [address]- 5133 Oct, [facility] [place] [facility] [address] [id number] [place] [address]- 7113 Oct, [facility] [place] [facility] [address] [id number] [place] [address]- 0016 Oct, [facility] [place] [facility] [address] [id number] [place] [address]- 4993 Oct, [facility] [place] [facility] [address] [id number] [place] [address]- 5979 Oct, [facility] [place] [facility] [address] [id number] [place] [address]- 7694 Oct, [facility] [place] [facility] [address] [id number] [place] [address]- 8813 Oct, [facility] [place] [facility] [address] [id number] [place] [address]- 6383 Oct, [facility] [place] [facility] [address] [id number] [place] [address]- 7898 Oct, [facility] [place] [facility] [address] [id number] [place] [address]- 5876 Sep, [facility] [place] [facility] [address] [id number] [place] [address]- 1560 Sep, [facility] [place] [facility] [address] [id number] [place] [address]- 1549 Sep, [facility] [place] [facility] [address] [id number] [place] [address]- 9619 Sep, [facility] [place] [facility] [address] [id number] [place] [address]- 8362 Sep, [facility] [place] [facility] [address] [id number] [place] [address]- 1107 Sep, [facility] [place] [facility] [address] [id number] [place] [address]- 8977 Sep, [facility] [place] [facility] [address] [id number] [place] [address]- 5131 Sep, [facility] [place] [facility] [address] [id number] [place] [address]- 7521 Sep, [facility] [place] [facility] [address] [id number] [place] [address]- 9389 Sep, [facility] [place] [facility] [address] [id number] [place] [address]- 3425 Aug, [facility] [place] [facility] [address] [id number] [place] [address]- 1175 Aug, [facility] [place] [facility] [address] [id number] [place] [address]- 6218 Aug, [facility] [place] [facility] [address] [id number] [place] [address]- 7871 14 Aug, 2014 [facility] [place] [facility] [address] [id number] [place] [address]- 7800 Aug, [facility] [place] [facility] [address] [id number] [place] [address]- 2122 Aug, [facility] [place] [facility] [address] [id number] [place] [address]- 2659 Aug, [facility] [place] [facility] [address] [id number] [place] [address]- 9236 Aug, [facility] [place] [facility] [address] [id number] [place] [address]- 7198 29 Jul, 2014 [facility] [place] [facility] [address] [id number] [place] [address]- 9622 Jul, [facility] [place] [facility] [address] [id number] [place] [address]- 0423 05 Jul, 2014 [facility] [place] [facility] [address] [id number] [place] [address]- 1086 05 Jul, 2014 [facility] [place] [facility] [address] [id number] [place] [address]- 0567 05 Jul, 2014 [facility] [place] [facility] [address] [id number] [place] [address]- 3580 Jul, [facility] [place] [facility] [address] [id number], [place] [address]- 5785 Jun, [facility] [place] [facility] [address] [id number] [place] [address]- 6333 Jun, [facility] [place] [facility] [address] [id number] [place] [address]- 3512 May, [facility] [place] [facility] [address] [id number] [place] [address]- 8924 May, [facility] [place] [facility] [address] [id number] [place] [address]- 3060 May, [facility] [place] [facility] [address] [id number] [place] [address]- 4057 May, [facility] [place] [facility] [address] [id number] [place] [address]- 8867 May, [facility] [place] [facility] [address] [id number] [place] [address]- 1838 May, [facility] [place] [facility] [address] [id number] [place] [address]- 9345 May, [facility] [place] [facility] [address] [id number] [place] [address]- 6138 May, [facility] [place] [facility] [address] [id number] [place] [address]- 0863 Apr, [facility] [place] [facility] [address] [id number] [place] [address]- 5998 Apr, [facility] [place] [facility] [address] [id number] [place] [address]- 9848 March, [facility] [place] [facility] [address] [id number] [place] [address]- 3899 March, [facility] [place] [facility] [address] [id number] [place] [address]- 6925 Feb, [facility] [place] [facility] [address] [id number] [place] [address]- 8552 Feb, [facility] [place] [facility] [address] [id number] [place] [address]- 1320 Feb, [facility] [place] [facility] [address] [id number] [place] [address]- 3619 Feb, [facility] [place] [facility] [address] [id number] [place] [address]- 6483 Feb, [facility] [place] [facility] [address] [id number] [place] [address]- 4103 Feb, [facility] [place] [facility] [address] [id number] [place] [address]- 1810 Feb, [facility] [place] [facility] [address] [id number] [place] [address]- 6084 Feb, [facility] [place] [facility] [address] [id number] [place] [address]- 5433 Feb, [facility] [place] [facility] [address] [id number] [place] [address]- 3555 Feb, [facility] [place] [facility] [address] [id number] [place] [address]- 2072 Jan, [facility] [place] [facility] [address] [id number] [place] [address]- 1016 Jan, [facility] [place] [facility] [address] [facility] [id number] [place] [address]- 7822 Jan, [facility] [place] [facility] [address] [id number] [place] [address]- 6688 Jan, [facility] [place] [facility] [address] [id number] [place] [address]- 2675 Jan, [facility] [place] [facility] [address] [id number] [place] [address]- 6409 Dec, [facility] [place] [facility] [address] [facility] [id number] [place] [address]- 8447 Dec, [facility] [place] [facility] [address] [id number], [place] [address]- 8743 Dec, [facility] [place] [facility] [address] [id number] [place] [address]- 6645 Dec, [facility] [place] [facility] [address] [id number] [place] [address]- 0627 Dec, [facility] [place] [facility] [address] [id number] [place] 1507 Dec, [facility] [place] [facility] [address] [id number], [place] [address]- 9998 Nov, [facility] [address] [id number] [place] [address]- 5023 Nov, [facility] [place] [facility] [address] [id number] [place] [address]- 1025 Nov, [facility] [address] [facility] [id number] [place] [address]- 4000 Nov, [facility] [place] [facility] [address] [id number] [place] [address]- 4882 Nov, [facility] [address] [id number] [place] [address]- 8770 Nov, [facility] [address] [id number] [place] [address]- 0485 Nov, [facility] [address] [facility] [id number], [place] [address]- 4265 Nov, [facility] [place] [facility] [address] [id number] [place] [address]- 7306 Oct, [facility] [address] [id number] [place] [address]- 0525 Oct, [facility] [place] [facility] [address] [facility] [id number] [place] [address]- 1926 Oct, [facility] [place] [facility] [address] [id number], [place] [address]- 5380 Oct, [facility] [place] [facility] [address] [id number], [place] [address]- 2571 Oct, [facility] [place] [facility] [address] [id number], [place] [address]- 1035 Oct, [facility] [place] [facility] [address] [facility] [id number], [place] [address]- 6466 Oct, [facility] [place] [facility] [address] [facility] [id number], [place] [address]- 1609 Oct, [facility] [place] [facility] [address] [id number] [place] [address]- 5977 Sep, [facility] [place] [facility] [address] [id number] [place] 4360 Sep, [facility] [place] [facility] [address] [id number] [place] [address]- 3607 Sep, [facility] [place] [facility] [address] [id number] [place] [address]- 3192 14 Sep, 2013 [facility] [place] [facility] [address] [id number] [place] [address]- 0956 Sep, [facility] [place] [facility] [address] [id number] [place] [address]- 1694 Sep, [facility] [place] [facility] [address] [id number] [place] [address]- 4532 Sep, [facility] [place] [facility] [address] [id number] [place] [address]- 6513 Sep, [facility] [place] [facility] [address] [id number] [place] [address]- 3438 Aug, [facility] [place] [facility] [address] [id number] [place] [address]- 9009 Aug, [facility] [place] [facility] [address] [id number] [place] 8176 Aug, [facility] [place] [facility] [address] [id number] [place] [address]- 6274 Jul, [facility] [place] [facility] [address] [id number] [place] [address]- 1258 Jun, [facility] [place] [facility] [address] [id number] [place] [address]- 1805 Jun, [facility] [place] [facility] [address] [id number] [place] [address]- 1331 Jun, [facility] [place] [facility] [address] [id number] [place] [address]- 2674 Jun, [facility] [address] [id number] [place] [address]- 3205 Jun, [facility] [place] [facility] [address] [id number] [place] [address]- 6982 May, [facility] [place] [facility] [address] [id number] [place] [address]- 9235 May, [facility] [address] [id number] [place] [address]- 8730 Apr, [facility] [address] [id number] [place] [address]- 7507 Apr, [facility] [address] [id number] [place] [address]- 9448 March, [facility] [address] [id number] [place] [address]- 7805 March, [facility] [place] [facility] [address] [id number] [place] [address]- 9177 March, [facility] [address] [id number] [place] [address]- 1780 March, [facility] [address] [id number] [place] [address]- 5575 March, [facility] [address] [id number] [place] [address]- 4860 Feb, [facility] [place] [facility] [address] [id number], [place] [address]- 9230 Feb, [facility] [place] [facility] [address] [id number] [place] [address]- 5186 Feb, [facility] [place] [facility] [address] [id number] [place] [address]- 7568 Jan, [facility] [place] [facility] [address] [id number] [place] [address]- 6575 Dec, [facility] [place] [facility] [address] [id number] [place] [address]- 1535 27 Dec, 2012 [facility] [address] [id number] [place] [address]- 8906 18 Dec, 2012 [facility] [address] [id number] [place] [address] 2546 Dec, [facility] [address] [id number] [place] [address]- 8510 28 Nov, 2012 [facility] [address] [id number] [place] [address]- 0366 Nov, [facility] [address] [id number] [place] [address]- 3397 Nov, [facility] [address] [id number] [place] [address]- 7004 Nov, [facility] [address] [id number] [place] [address]- 3680 Oct, [facility] [address] [id number] [place] [address]- 5482 Oct, [facility] [address] [id number] [place] [address]- 1827 Oct, [facility] [address] [id number] [place] [address]- 7015 06 Oct, 2012 [facility] [address] [id number] [place] [address]- 7826 14 Sep, 2012 [facility] [address] [id number] [place] [address]- 9888 14 Sep, 2012 [facility] [place] [facility] [address] [id number] [place] [address]- 6610 13 Sep, 2012 [facility] [address] [id number] [place] [address]- 2506 13 Sep, 2012 [facility] [address] [id number] [place] [address]- 8488 Sep, [facility] [place] [facility] [address] [id number] [place] [address]- 1146 Sep, [facility] [place] [facility] [address] [id number] [place] [address]- 2936 Aug, [facility] [place] [facility] [address] [id number] [place] [address]- 2546 Aug, [facility] [place] [facility] [address] [id number] [place] [address]- 2546 Aug, [facility] [place] [facility] [address] [id number] [place] [address]- 1696 Jul, [facility] [place] [facility] [address] [id number] [place] [address]- 3136 Jul, [facility] [place] [facility] [address] [id number] [place] [address]- 2546 Jun, [facility] [place] [facility] [address] [id number] [place] [address]- 4446 May, [facility] [place] [facility] [address] [id number] [place] [address]- 7281 May, [facility] [place] [facility] [address] [facility] [id number], [place] [address]- 0076 Apr, [facility] [place] [facility] [address] [id number], [place] [address]- 2546 Apr, [facility] [place] [facility] [address] [id number], [place] [address]- 2546 March, [facility] [place] [facility] [address] [id number] [place] [address]- 2546 March, [facility] [place] [facility] [address] [id number], [place] [address]- 7766 Feb, [facility] [place] [facility] [address] [id number], [place] [address]- 2546 Feb, [facility] [place] [facility] [address] [id number], [place] [address]- 3063 09 Feb, 2012 [facility] [address] [id number] [place] [address]- 8256 06 Feb, 2012 [facility] [place] [facility] [address] [id number] [place] [address]- 0896 15 Jan, 2012 [facility] [place] [facility] [address] [facility] [id number] [place] [address]- 4006 Jan, [facility] [place] [facility] [address] [id number] [place] [address]- 4972 29 Dec, 2011 [facility] [place] [facility] [address] [id number] [place] [address]- 8926 28 Dec, 2011 [facility] [place] [facility] [address] [id number] [place] [address]- 0906 26 Dec, 2011 [facility] [place] [facility] [address] [id number] [place] [address]- 5306 23 Dec, 2011 [facility] [place] [facility] [address] [id number] [place] [address]- 8507 20 Dec, 2011 [facility] [place] [facility] [address] [facility] [id number] [place] [address]- 4919 15 Dec, 2011 [facility] [place] [facility] [address] [facility] [id number] [place] [address]- 9742 10 Dec, 2011 [facility] [place] [facility] [address] [facility] [id number] [place] [address] Dec, [facility] [place] [facility] [address] [facility] [id number] [place] [address] 08 Dec, 2011 [facility] [place] [facility] [address] [id number] [place] [address] 07 Dec, 2011 [facility] [place] [facility] [address] [facility] [id number] [place] [address] 02 Dec, 2011 [facility] [place] [facility] [address] [facility] [id number] [place] [address] Dec, [facility] [place] [facility] [address] [id number] [place] [address] Dec, [facility] [place] [facility] [address] [id number] [place] [address] Nov, [facility] [place] [facility] [address] [id number] [place] [address] Nov, [facility] [place] [facility] [address] [id number] [place] [address] Nov, [facility] [place] [facility] [address] [id number] [place] [address] Nov, [facility] [place] [facility] [address] [id number] [place] [address] Nov, [facility] [place] [facility] [address] [id number] [place] [address] Nov, [facility] [place] [facility] [address] [id number] [place] [address] Oct, [facility] [place] [facility] [address] [id number] [place] [address] Oct, [facility] [place] [facility] [address] [id number] [place] [address] Sep, [facility] [place] [facility] [address] [id number], [place] [address] Sep, [facility] [place] [facility] [address] [id number], [place] [address] Sep, [facility] [place] [facility] [address] [id number] [place] [address] Sep, [facility] [place] [facility] [address] [id number], [place] [address] Sep, [facility] [place] [facility] [address] [id number] [place] [address] March, [facility] [place] [facility] [address] [facility] [id number], [place] [address] Oct, [facility] [address] [facility] [id number], [place] [address] Oct, [facility] [address] [facility] [id number], [place] [address] Oct, [facility] [address] [facility] [id number], [place] [address] Sep, [facility] [address] [facility] [id number], [place] [address] Sep, [facility] [address] [facility] [id number], [place] [address] Sep, [facility] [address] [facility] [id number], [place] [address] Sep, [facility] [id number], [place] [address] Aug, [facility] [id number], [place] [address] Oct, [facility] [id number], [place] [address] Oct, [facility] [address] [id number], [place] [address] May, IMMUNIZATIONS No Known Immunizations SOCIAL HISTORY Never Assessed REASON FOR VISIT PLAN OF CARE VITAL SIGNS MEDICATIONS Medication Instructions Dosage Frequency Start Date End Date Duration Status Diflucan 150 MG 1 tablet Oct, 1 dose Active RESULTS No Results PROCEDURES No Known procedures INSTRUCTIONS MEDICATIONS ADMINISTERED No Known Medications MEDICAL (GENERAL) HISTORY Type Description Date Medical History hypertension Medical History panic attacks Surgical History cholecystectomy 2009 Hospitalization History surgery
--- OUTSIDE RECORDS SUMMARY | 2018-12-11 10:37 | XMS REPORT ---
Author Author LEIDA ANDINO [facility] Address [address] [place] [address] Care Team Providers Care Admission Specialist Name Role Phone THU LEIDA Unavailable PROBLEMS Type Condition ICD9-CM Code [id number] Code Onset Dates Condition Status SNOMED Code Problem Anxiety F41.9 Active 36871029 Problem Unspecified episodic mood disorder F39 Active 961115566 Problem Unspecified personality disorder F60.9 Active 34119906 Problem Anxiety disorder, unspecified F41.9 Active [id number] ALLERGIES No Known Allergies SOCIAL HISTORY Never Assessed PLAN OF CARE VITAL SIGNS Height 68 in 2016-12-29 Weight 231.9 lbs 2016-12-29 Temperature 98.1 degrees Fahrenheit 2016-12-29 Heart Rate 64 bpm 2016-12-29 Respiratory Rate 22 2016-12-29 Oximetry 97 % 2016-12-29 BMI 35.26 kg/m2 2016-12-29 Blood pressure systolic 124 mmHg 2016-12-29 Blood pressure diastolic 82 mmHg 2016-12-29 MEDICATIONS Medication Instructions Dosage Frequency Start Date End Date Duration Status Propranolol HCl 20 mg Orally 2 times a day 1 tablet 12h 90 Active Pantoprazole Sodium 40 mg TAKE ONE TABLET BY MOUTH DAILY 90 Active Metoprolol Succinate ER 50 MG TAKE ONE TABLET BY MOUTH DAILY (MUST HAVE APPOINTMENT FOR REFILL) 30 Active Advair Diskus 250-50 MCG/DOSE INHALE ONE PUFF BY MOUTH TWICE DAILY 30 Active Amlodipine Besylate 10 mg TAKE ONE TABLET BY MOUTH DAILY 90 days Active Valium 10 mg Orally Twice a day 1 tablet 12h 30 Jan, 2015 28 days Active Medical Compression Stockings N/A as directed Aug, Active Sertraline HCl 100 MG TAKE ONE TABLET BY MOUTH DAILY 30 Active Ditropan XL 5 MG TAKE ONE TABLET BY MOUTH DAILY 30 Active RESULTS No Results PROCEDURES Procedure Date Ordered Result Body Site MEASURE BLOOD OXYGEN LEVEL Dec 29, 2016 IMMUNIZATIONS No Known Immunizations MEDICAL (GENERAL) HISTORY Type Description Date Medical History hypertension Medical History panic attacks Surgical History cholecystectomy 2009 Hospitalization History surgery
--- OUTSIDE RECORDS SUMMARY | 2018-12-11 10:38 | XMS REPORT ---
Author Author SANJEEV PHELPS [facility] e[employer] Address Unknown Phone Unavailable Care Team Providers Care Skip Hoist Operator Name Role Phone SANJEEV PHELPS Unavailable Allergies [...] patient &/family, 45 minutes, established patient CPT-4 [id number] Jun 09, 2016 Results No Known Results Summary Purpose eClinicalWorks Submission
--- OUTSIDE RECORDS SUMMARY | 2018-12-11 10:38 | XMS REPORT ---
Author LEIDA Colunga Organization [employer] Address Unknown Phone Unavailable Care Team Providers Care Manager Night Name Role Phone LEIDA ANDINO CP Unavailable [...]
--- OUTSIDE RECORDS SUMMARY | 2018-12-11 10:38 | XMS REPORT ---
Author Author SANJEEV PHELPS [facility] [place] eClinicalWorks Address Unknown Phone Unavailable Care Team Providers Care Help Desk Intern Name Role Phone SANJEEV PHELPS Unavailable Allergies [...] patient &/family, 45 minutes, established patient CPT-4 24325 Oct 05, 2015 Results No Known Results Summary Purpose eClinicalWorks Submission
--- OUTSIDE RECORDS SUMMARY | 2018-12-11 10:38 | XMS REPORT ---
Author Author LEIDA ANDINO [facility] Address [address] [place] [address] Care Team Providers Care Photographic Reproduction Technician Name Role Phone THU LEIDA Unavailable PROBLEMS Type Condition ICD9-CM Code ZTG12-UJ Code Onset Dates Condition Status SNOMED Code Problem Screening for malignant neoplasm of the cervix V76.2 Active 885574972 Problem Need for prophylactic vaccination and inoculation, Influenza V04.81 Active 401979378 Problem Unspecified breast screening V76.10 Active 295359562 Problem Urge incontinence 788.31 Active 45843668 Problem Candidiasis of vulva and vagina 112.1 Active 42391922 Problem Unspecified episodic mood disorder F39 Active 857143491 Problem Anxiety disorder, unspecified F41.9 Active 531742156 Problem Screening examination for pulmonary tuberculosis V74.1 Active 449500856 Problem PPV23 (PNEUMOVAX) DX V03.82 Active Problem Unspecified personality disorder F60.9 Active 20152600 Problem Edema 782.3 Active 49172968 ALLERGIES Unknown Allergies SOCIAL HISTORY No smoking Hx information available PLAN OF CARE VITAL SIGNS MEDICATIONS Unknown Medications RESULTS No Results PROCEDURES No Known procedures IMMUNIZATIONS No Known Immunizations
--- OUTSIDE RECORDS SUMMARY | 2018-12-11 10:38 | XMS REPORT ---
Author Author LEIDA ANDINO [facility] Address [address] [place] [address] Care Team Providers Care Clinical Informatics Physician Name Role Phone LEIDA ANDINO Unavailable PROBLEMS Type Condition ICD9-CM Code ADA65-IB Code Onset Dates Condition Status SNOMED Code Problem Anxiety F41.9 Active 99509093 Problem Unspecified episodic mood disorder F39 Active 270922993 Problem Unspecified personality disorder F60.9 Active 03397279 Problem Anxiety disorder, unspecified F41.9 Active 229813240 ALLERGIES No Information SOCIAL HISTORY Never Assessed PLAN OF CARE VITAL SIGNS MEDICATIONS Unknown Medications RESULTS No Results PROCEDURES No Known procedures IMMUNIZATIONS No Known Immunizations MEDICAL (GENERAL) HISTORY Type Description Date Medical History hypertension Medical History panic attacks Surgical History cholecystectomy 2009 Hospitalization History surgery
--- OUTSIDE RECORDS SUMMARY | 2018-12-11 10:38 | XMS REPORT ---
Author Author LEIDA ANDINO Organization [facility] Address [address] [place] [address] Care Team Providers Care Database Engineer Name Role Phone LEIDA ANDINO Unavailable PROBLEMS Type Condition ICD9-CM Code [id number] Code Onset Dates Condition Status SNOMED Code Problem Stress incontinence of urine N39.3 Active 91873396 Problem Anxiety F41.9 Active 19534893 Problem Anxiety disorder, unspecified F41.9 Active 738019674 Problem Unspecified episodic mood disorder F39 Active 548489190 Problem Unspecified personality disorder F60.9 Active 37296461 ALLERGIES No Information ENCOUNTERS Encounter Location Date Diagnosis [place] [id number] [place] [address] 05767- 3485 May, [place] [id number] [place] [address] 03394- 9551 Apr, Unspecified episodic mood disorder F39 ; Anxiety disorder, unspecified F41.9 and Unspecified personality disorder F60.9 [place] [id number] [place] [address] 76418- 1329 March, Anxiety disorder, unspecified F41.9 [place] [id number] [place] [address] 24808- 6865 March, Unspecified episodic mood disorder F39 ; Anxiety disorder, unspecified F41.9 and Unspecified personality disorder F60.9 [place] [id number] [place] [address] 14223- 0291 March, Anxiety disorder, unspecified F41.9 [place] [id number] [place] [address] 10615- 3477 Feb, Unspecified episodic mood disorder F39 ; Anxiety disorder, unspecified F41.9 and Unspecified personality disorder F60.9 [facility] [address] [address] 1841 Feb, Unspecified episodic mood disorder F39 ; Anxiety disorder, unspecified F41.9 and Unspecified personality disorder F60.9 [facility] [facility] [id number] [place] [address] 88845- 9148 Feb, Anxiety disorder, unspecified F41.9 [facility] [facility] [id number] [place] [address] 29541- 8843 Jan, Unspecified episodic mood disorder F39 ; Anxiety disorder, unspecified F41.9 and Unspecified personality disorder F60.9 [facility] [facility] [id number] [place] [address] 42743- 7389 Jan, Anxiety F41.9 [facility] [facility] [id number] [place] [address] 75860- 3003 Jan, Anxiety disorder, unspecified F41.9 [facility] [facility] [id number] [place] [address] 83167- 1658 Dec, Unspecified episodic mood disorder F39 ; Anxiety disorder, unspecified F41.9 and Unspecified personality disorder F60.9 [facility] [facility] [id number] [place] [address] 25075- 4004 Dec, Anxiety F41.9 [place] [id number] [place] [address] 63562- 0564 Dec, Anxiety disorder, unspecified F41.9 [facility] [facility] [id number] [place] [address] 83717- 8032 Dec, Unspecified episodic mood disorder F39 ; Anxiety disorder, unspecified F41.9 and Unspecified personality disorder F60.9 [facility] [place] [facility] [id number] [place] [address] 00969- 6762 Nov, [facility] [place] [facility] [id number] [place] [address] 28175- 6932 Nov, [facility] [place] [facility] [address] [address]- 7367 Nov, Unspecified episodic mood disorder F39 ; Anxiety disorder, unspecified F41.9 and Unspecified personality disorder F60.9 [facility] [facility] [id number] [place] [address] 62827- 8987 Nov, Anxiety disorder, unspecified F41.9 [place] [id number] [place] [address] 06254- 9418 Oct, Unspecified episodic mood disorder F39 ; Anxiety disorder, unspecified F41.9 and Unspecified personality disorder F60.9 [place] [id number] [place] [address] 82473- 3422 Oct, Vaginal yeast infection B37.3 [place] [id number] [place] [address] 10826- 6199 Oct, [place] [id number] [place] [address] 07256- 8631 Oct, Anxiety disorder, unspecified F41.9 [place] [id number] [place] [address] 05068- 2710 Oct, Routine gynecological examination Z01.419 ; Screening for breast cancer Z12.31 and Vaginal yeast infection B37.3 [place] [id number] [place] [address] 86093- 1760 Sep, Unspecified episodic mood disorder F39 ; Anxiety disorder, unspecified F41.9 and Unspecified personality disorder F60.9 [place] [id number] [place] [address] 69979- 9439 Sep, [place] [id number] [place] [address] 96148- 4135 Sep, Anxiety disorder, unspecified F41.9 [place] [id number] [place] [address] 17614- 1632 Sep, Bronchitis J40 and Stress incontinence of urine N39.3 [place] [id number] [place] [address] 04313- 9613 Sep, Stress incontinence of urine N39.3 ; Bronchitis J40 and Anxiety F41.9 [place] [id number] [place] [address] 91709- 8590 Sep, [place] [id number] [place] [address] 64836- 6971 Sep, Unspecified episodic mood disorder F39 ; Anxiety disorder, unspecified F41.9 and Unspecified personality disorder F60.9 [place] [id number] [place] [address] 42044- 2077 Aug, Anxiety F41.9 ; Stress incontinence of urine N39.3 and Encounter for immunization Z23 [place] [id number] [place] [address] 31921- 6376 Aug, Anxiety disorder, unspecified F41.9 [place] [id number] [place] [address] 24388- 1686 Jul, Unspecified episodic mood disorder F39 ; Anxiety disorder, unspecified F41.9 and Unspecified personality disorder F60.9 [place] [id number] [place] [address] 59077- 9149 Jul, [place] [id number] [place] [address] 54780- 9597 Jul, Unspecified episodic mood disorder F39 ; Anxiety disorder, unspecified F41.9 and Unspecified personality disorder F60.9 [place] [id number] [place] [address] 97990- 6189 Jul, Anxiety disorder, unspecified F41.9 [place] [id number] [place] [address] 09175- 1399 Jun, Unspecified episodic mood disorder F39 ; Anxiety disorder, unspecified F41.9 and Unspecified personality disorder F60.9 [place] [id number] [place] [address] 96763- 8296 Jun, Anxiety disorder, unspecified F41.9 [facility] [place] [facility] [address] [address]- 1046 Jun, Unspecified episodic mood disorder F39 ; Anxiety disorder, unspecified F41.9 and Unspecified personality disorder F60.9 [facility] [facility] [address] [address]- 3824 Jun, [facility] [id number] [place] [address] 28098- 2942 May, Anxiety disorder, unspecified F41.9 [place] [id number] [place] [address] 39032- 0511 May, Unspecified episodic mood disorder F39 ; Anxiety disorder, unspecified F41.9 and Unspecified personality disorder F60.9 [place] [id number] [place] [address] 95224- 6851 Apr, Anxiety disorder, unspecified F41.9 [facility] [id number] [place] [address] 11319- 0679 March, Unspecified episodic mood disorder F39 ; Anxiety disorder, unspecified F41.9 and Unspecified personality disorder F60.9 [facility] [address] [address]- 9386 March, Bronchitis J40 [facility] [id number] [place] [address] 65122- 5189 March, Unspecified episodic mood disorder F39 ; Anxiety disorder, unspecified F41.9 and Unspecified personality disorder F60.9 [facility] [id number] [place] [address] 71880- 7326 Feb, [facility] [id number] [place] [address] 16920- 8182 Feb, Unspecified episodic mood disorder F39 ; Anxiety disorder, unspecified F41.9 and Unspecified personality disorder F60.9 [facility] [id number] [address]- 7174 Feb, Bronchitis J40 [facility] [id number] [place] [address] 14239- 2283 Feb, Unspecified episodic mood disorder F39 ; Anxiety disorder, unspecified F41.9 and Unspecified personality disorder F60.9 [facility] [facility] [id number] [place] [address] 91809- 7716 Jan, Unspecified episodic mood disorder F39 ; Anxiety disorder, unspecified F41.9 and Unspecified personality disorder F60.9 [facility] [facility] [id number] [place] [address] 20959- 1223 Jan, Bronchitis J40 [facility] [facility] [id number] [place] [address] 68812- 4242 Jan, Unspecified episodic mood disorder F39 ; Anxiety disorder, unspecified F41.9 and Unspecified personality disorder F60.9 [facility] [facility] [id number] [place] [address] 07523- 3345 Dec, Anxiety F41.9 [facility] [facility] [id number] [place] [address] 79661- 1366 Dec, Unspecified episodic mood disorder F39 ; Anxiety disorder, unspecified F41.9 and Unspecified personality disorder F60.9 [place] [id number] [address] Dec, [facility] [facility] [id number] [place] [address] 78760- 5560 Dec, Unspecified episodic mood disorder F39 ; Anxiety disorder, unspecified F41.9 and Unspecified personality disorder F60.9 [facility] [facility] [id number] [place] [address] 81131- 6525 Nov, [facility] [id number] [place] [address] 54249- 8535 Oct, Unspecified episodic mood disorder F39 ; Anxiety disorder, unspecified F41.9 and Unspecified personality disorder F60.9 [facility] [address] [address]- 2407 Oct, [facility] [id number] [place] [address] 06295 -3009 Oct, Acute upper respiratory infection, unspecified J06.9 ; Other viral agents as the cause of diseases classified elsewhere B97.89 and Cough R05 [facility] [id number] [place] [address] 08056- 6978 Aug, Unspecified episodic mood disorder F39 ; Anxiety disorder, unspecified F41.9 and Unspecified personality disorder F60.9 [facility] [id number] [place] [address] 14509- 9874 Aug, [facility] [id number] [place] [address] 51977- 9459 Aug, [facility] [id number] [place] [address] 67770- 3613 Aug, [facility] [id number] [place] [address] 75820- 7510 Aug, Visit for TB skin test Z11.1 [facility] [id number] [place] [address] 35423- 8077 Jul, [facility] [id number] [place] [address] 09481- 2978 Jul, [facility] [id number] [place] [address] 42261- 9081 Jul, [facility] [id number] [place] [address] 16846- 1973 Jul, [facility] [id number] [place] [address] 65747- 4759 Jul, [facility] [address], [place] [address]- 1912 Jul, Unspecified episodic mood disorder F39 ; Anxiety disorder, unspecified F41.9 and Unspecified personality disorder F60.9 [facility] [address] [address]- 2790 Jun, [facility] [id number] [place] [address] 51161- 4722 Jun, Unspecified episodic mood disorder F39 ; Anxiety disorder, unspecified F41.9 and Unspecified personality disorder F60.9 [facility] [id number] [place] [address] 97765- 3813 Jun, [facility] [id number] [place] [address] 85242- 3832 May, Unspecified episodic mood disorder F39 ; Anxiety disorder, unspecified F41.9 and Unspecified personality disorder F60.9 [facility] [id number] [place] [address] 64871- 6195 May, [facility] [id number] [place] [address] 63230- 5465 May, [facility] [facility] [id number] [place] [address] 07151- 1401 May, Edema, unspecified R60.9 [facility] [facility] [id number] [place] [address] 25024- 3789 Apr, [facility] [facility] [id number] [place] [address] 13965- 8538 Apr, Unspecified episodic mood disorder F39 ; Anxiety disorder, unspecified F41.9 and Unspecified personality disorder F60.9 [facility] [facility] [address], [place] [address]- 8839 Apr, Anxiety F41.9 [facility] [id number] [place] [address] 44956- 0225 March, Unspecified episodic mood disorder F39 ; Anxiety disorder, unspecified F41.9 and Unspecified personality disorder F60.9 [facility] [facility] [id number] [place] [address] 09286- 1382 March, Unspecified episodic mood disorder F39 ; Anxiety disorder, unspecified F41.9 and Unspecified personality disorder F60.9 [facility] [id number] [place] [address] 40692- 0504 Feb, Anxiety F41.9 [facility] [id number] [place] [address] 11197- 6303 Feb, Unspecified episodic mood disorder F39 ; Anxiety disorder, unspecified F41.9 and Unspecified personality disorder F60.9 [facility] [id number] [place] [address] 35722- 0230 Jan, Unspecified episodic mood disorder F39 ; Anxiety disorder, unspecified F41.9 and Unspecified personality disorder F60.9 [facility] [id number] [place] [address] 55080- 5174 Jan, Unspecified episodic mood disorder F39 ; Anxiety disorder, unspecified F41.9 and Unspecified personality disorder F60.9 [facility] [id number] [place] [address] 65358- 3588 Jan, Edema, unspecified R60.9 [facility] [id number] [place] [address] 99934- 7587 Dec, [facility] [address], [place] [address]- 7944 Dec, [facility] [facility] [address] [address]- 1927 Dec, [facility] [id number] [place] [address] 57534- 3886 Dec, Unspecified episodic mood disorder F39 ; Anxiety disorder, unspecified F41.9 and Unspecified personality disorder F60.9 [facility] [facility] [address] [address]- 2413 Nov, [facility] [facility] [id number] [place] [address] 69917- 7066 Nov, Unspecified episodic mood disorder F39 ; Anxiety disorder, unspecified F41.9 and Unspecified personality disorder F60.9 [place] [id number] [place] [address] 84411- 9622 Oct, Unspecified episodic mood disorder F39 ; Anxiety disorder, unspecified F41.9 and Unspecified personality disorder F60.9 [place] [id number] [place] [address] 17735- 9867 Oct, Unspecified episodic mood disorder F39 ; Anxiety disorder, unspecified F41.9 and Unspecified personality disorder F60.9 [place] [id number] [place] [address] 83674- 4008 Sep, Unspecified episodic mood disorder F39 ; Anxiety disorder, unspecified F41.9 and Unspecified personality disorder F60.9 [place] [id number] [place] [address] 20886- 6749 Sep, Encounter for immunization Z23 [place] [id number] [place] [address] 49811- 4921 Sep, Edema of left lower extremity R60.0 [place] [id number] [place] [address] 92406- 6559 Aug, Unspecified episodic mood disorder F39 ; Anxiety disorder, unspecified F41.9 and Unspecified personality disorder F60.9 [place] [id number] [place] [address] 62893- 4323 Aug, [place] [id number] [place] [address] 31967- 1810 Aug, Edema of left lower extremity R60.0 [place] [id number] [place] [address] 56045- 2850 Aug, [place] [id number] [place] [address] 82945- 1231 Aug, Unspecified episodic mood disorder F39 ; Anxiety disorder, unspecified F41.9 and Unspecified personality disorder F60.9 [facility] [place] [facility] [address] [address]- 0157 Jul, Unspecified episodic mood disorder 296.90 ; Anxiety disorder , unspecified 300.00 and Unspecified personality disorder 301.9 [facility] [place] [facility] [id number] [place] [address] 57484- 3121 Jul, Unspecified episodic mood disorder 296.90 ; Anxiety disorder , unspecified 300.00 and Unspecified personality disorder 301.9 [facility] [place] [facility] [id number] [place] [address] 95702- 0586 Jul, [facility] [place] [facility] [id number] [place] [address] 68704- 3725 Jun, Unspecified episodic mood disorder 296.90 ; Anxiety disorder , unspecified 300.00 and Unspecified personality disorder 301.9 [facility] [place] [facility] [id number] [place] [address] 15539- 9323 May, Unspecified episodic mood disorder 296.90 ; Anxiety disorder , unspecified 300.00 and Unspecified personality disorder 301.9 [facility] [place] [facility] [id number] [place] [address] 94940- 9550 May, Anxiety disorder, unspecified 300.00 [facility] [place] [facility] [id number] [place] [address] 77421- 0693 May, Anxiety disorder, unspecified 300.00 and Edema 782.3 [facility] [place] [facility] [id number] [place] [address] 49483- 8033 May, Unspecified episodic mood disorder 296.90 ; Anxiety disorder , unspecified 300.00 and Unspecified personality disorder 301.9 [facility] [place] [facility] [id number] [place] [address] 06382- 9771 Apr, [facility] [place] [facility] [id number] [place] [address] 22297- 9703 Apr, Unspecified episodic mood disorder 296.90 ; Anxiety disorder , unspecified 300.00 and Personality disorder, unspecified 301.9 [facility] [place] [facility] [address] [address]- 9445 Apr, Unspecified episodic mood disorder 296.90 ; Anxiety disorder , unspecified 300.00 and Unspecified personality disorder 301.9 [facility] [place] [facility] [address] [address]- 4652 March, [facility] [place] [facility] [id number] [place] [address] 66186- 3135 March, Unspecified episodic mood disorder 296.90 ; Anxiety disorder , unspecified 300.00 and Unspecified personality disorder 301.9 [facility] [place] [facility] [id number] 6393 March, Unspecified episodic mood disorder 296.90 ; Anxiety disorder 300.00 and Unspecified personality disorder 301.9 [facility] [place] [facility] [address] [address]- 6144 March, [facility] [place] [facility] [id number] [address]- 1182 March, [facility] [place] [facility] [address], [place] [address]- 9295 Feb, [facility] [place] [facility] [address] [address]- 0005 Feb, [facility] [place] [facility] [address], [place] [address]- 8217 Feb, [facility] [place] [facility] [address] [address]- 3849 Jan, [facility] [place] [facility] [address] [address]- 7088 Jan, [facility] [place] [facility] [address] 4056 Jan, [facility] [place] [facility] [address] [address]- 8559 Jan, [facility] [place] [facility] [address] [facility] [id number] [place] [address]- 7826 Jan, 2014 [facility] [place] [facility] [address] [id number] [place] [address]- 0591 Jan, 2014 [facility] [place] [facility] [address] [id number] [place] [id number] Jan, 2014 [facility] [place] [facility] [address] [id number] [place] [address]- 1382 Jan, 2014 [facility] [place] [facility] [address] [id number] [place] [address]- 1103 Jan, 2014 [facility] [place] [facility] [address] [id number] [place] [address]- 1441 Jan, 2014 [facility] [place] [facility] [address] [id number] [place] [address]- 6049 Jan, 2014 [facility] [place] [facility] [address] [id number] [place] [address]- 3039 Jan, 2014 [facility] [place] [facility] [address] [id number] [place] [address]- 2224 Jan, 2014 [facility] [place] [facility] [address] [id number] [place] [address]- 6531 Jan, 2014 [facility] [place] [facility] [address] [id number] [place] [address]- 9207 Jan, 2014 [facility] [place] [facility] [address] [id number] [place] [address]- 6537 Jan, 2014 [facility] [place] [facility] [address] [id number] [place] [address]- 0089 Dec, 2014 [facility] [place] [facility] [address] [id number] [place] [address]- 4458 Dec, 2014 [facility] [place] [facility] [address] [id number] [place] [address] Dec, 2014 [facility] [place] [facility] [address] [id number] [place] [address] Dec, [facility] [place] [facility] [address] [id number] [place] [address] Nov, [facility] [place] [facility] [address] [id number] [place] [address] Nov, [facility] [place] [facility] [address] [id number] [place] [address] Nov, [facility] [place] [facility] [address] [id number] [place] [address] Nov, [facility] [place] [facility] [address] [id number] [place] [address] Oct, [facility] [place] [facility] [address] [id number] [place] [address] Oct, [facility] [place] [facility] [address] [id number] [place] [address] Oct, [facility] [place] [facility] [address] [id number] [place] [address] Oct, [facility] [place] [facility] [address] [id number] [place] [address] Oct, [facility] [place] [facility] [address] [id number] [place] [address] Oct, [facility] [place] [facility] [address] [id number] [place] [address] Oct, [facility] [place] [facility] [address] [id number] [place] [address] Oct, [facility] [place] [facility] [address] [id number] [place] [address] Oct, [facility] [place] [facility] [address] [id number] [place] [address] Oct, [facility] [place] [facility] [address] [id number] [place] [address] Oct, [facility] [place] [facility] [address] [id number] [place] [address] Oct, [facility] [place] [facility] [address] [id number] [place] [address] Oct, [facility] [place] [facility] [address] [id number] [place] [address] Oct, [facility] [place] [facility] [address] [id number] [place] [address] Oct, [facility] [place] [facility] [address] [id number] [place] [address] Oct, [facility] [place] [facility] [address] [id number] [place] [address] 1614 Sep, [facility] [place] [facility] [address] [id number] [place] [address] 6067 Sep, [facility] [place] [facility] [address] [id number] [place] [address] 6[address] Sep, [facility] [place] [facility] [address] [id number] [place] [address] 8845 Sep, [facility] [place] [facility] [address] [id number] [place] [address] 3678 Sep, [facility] [place] [facility] [address] [facility] [id number] [place] [address] 2456 Sep, [facility] [place] [facility] [address] [id number] [place] [address] 0853 Sep, [facility] [place] [facility] [address] [id number] [place] [address] 8478 Sep, [facility] [place] [facility] [address] [id number] [place] [address] 5150 Sep, [facility] [place] [facility] [address] [id number] [place] [address]- 9315 Sep, [facility] [place] [facility] [address] [id number] [place] [address] 3335 Aug, [facility] [place] [facility] [address] [id number] [place] [address] 8554 Aug, [facility] [place] [facility] [address] [id number] [place] [address] 9446 Aug, [facility] [place] [facility] [address] [id number] [place] [address] 6211 Aug, [facility] [place] [facility] [address] [id number] [place] [address]- 4210 Aug, [facility] [place] [facility] [address] [id number] [place] [address]- 2858 Aug, [facility] [place] [facility] [address] [id number] [place] [address]- 6627 Aug, [facility] [place] [facility] [address] [id number] [place] [address]- 0846 Aug, [facility] [place] [facility] [address] [id number] [place] [address]- 1022 Jul, [facility] [place] [facility] [address] [id number] [place] [address] 2283 Jul, [facility] [place] [facility] [address] [id number] [place] [address]- 3235 Jul, [facility] [place] [facility] [address] [id number] [place] [address] 9898 Jul, [facility] [place] [facility] [address] [id number] [place] [address]- 2373 Jul, 2013 [facility] [place] [facility] [address] [id number] [place] [address]- 5771 Jul, [facility] [place] [facility] [address] [id number] [place] [address]- 6750 Jun, [facility] [place] [facility] [address] [id number] [place] [address]- 9350 Jun, [facility] [place] [facility] [address] [id number] [place] [address]- 5966 May, [facility] [place] [facility] [address] [id number] [place] [address]- [address]99 May, [facility] [place] [facility] [address] [id number] [place] [address]- 8959 May, [facility] [place] [facility] [address] [id number] [place] [address]- 2546 May, [facility] [place] [facility] [address] [id number] [place] [address]- 9120 May, [facility] [place] [facility] [address] [id number] [place] [address]- 7687 May, [facility] [place] [facility] [address] [id number] [place] [address]- 4603 May, [facility] [place] [facility] [address] [id number] [place] [address]- 0639 May, [facility] [place] [facility] [address] [id number] [place] [address]- 4192 Apr, [facility] [place] [facility] [address] [id number] [place] [address]- 2424 Apr, [facility] [place] [facility] [address] [id number] [place] [address]- 8864 March, [facility] [place] [facility] [address] [id number] [place] [address]- 0700 March, [facility] [place] [facility] [address] [id number] [place] [address]- 6593 Feb, [facility] [place] [facility] [address] [id number] [place] [address]- 7768 Feb, [facility] [place] [facility] [address] [id number] [place] [address]- 8162 Feb, [facility] [place] [facility] [address] [id number] [place] [address]- 4565 Feb, [facility] [place] [facility] [address] [id number] [place] [address] 1911 Feb, [facility] [place] [facility] [address] [id number] [place] [address]- 4043 Feb, [facility] [place] [facility] [address] [id number] [place] [address]- 8916 Feb, [facility] [place] [facility] [address] [id number] [place] [address]- 2660 Feb, [facility] [place] [facility] [address] [id number] [place] [address]- 7251 Feb, [facility] [place] [facility] [address] [id number] [place] [address]- 3794 Feb, [facility] [place] [facility] [address] [id number] [place] [address]- 2479 Jan, [facility] [place] [facility] [address] [id number] [place] [address]- 0476 Jan, [facility] [place] [facility] [address] [id number] [place] [address]- 2726 Jan, [facility] [place] [facility] [address] [id number] [place] [address]- 3313 Jan, [facility] [place] [facility] [address] [id number] [place] [address]- 1490 Jan, [facility] [place] [facility] [address] [id number] [place] [address]- 8541 Dec, [facility] [place] [facility] [address] [id number] [place] [address]- 2757 Dec, [facility] [place] [facility] [address] [id number] [place] [address]- [address] Dec, [facility] [place] [facility] [address] [id number] [place] [address]- 9396 Dec, [facility] [place] [facility] [address] [id number] [place] [address]- 1457 Dec, [facility] [place] [facility] [address] [id number] [place] [address]- 2403 Dec, [facility] [place] [facility] [address] [id number] [place] [address]- 6813 Nov, [facility] [place] [facility] [address] [facility] [id number] [place] [address]- 6468 Nov, [facility] [place] [facility] [address] [id number] [place] [address]- 0063 Nov, [facility] [place] [facility] [address] [id number] [place] [address]- 1066 Nov, [facility] [place] [facility] [address] [facility] [id number] [place] [address]- 6575 Nov, [facility] [place] [facility] [address] [id number] [place] [address]- 5380 Nov, [facility] [place] [facility] [address] [id number] [place] [address]- 5955 Nov, [facility] [place] [facility] [address] [id number] [place] [address]- 6368 Nov, [facility] [place] [facility] [address] [facility] [id number] [place] [address]- 6860 Oct, [facility] [place] [facility] [address] [id number], [place] [address]- 1355 Oct, [facility] [place] [facility] [address] [id number], [place] [address]- 7661 Oct, [facility] [place] [facility] [address] [id number] [place] [address]- 7717 Oct, [facility] [place] [facility] [address] [facility] [id number], [place] [address]- 1232 Oct, [facility] [place] [facility] [address] [facility] [id number], [place] [address]- 9352 Oct, [facility] [place] [facility] [address] [id number] [place] [address]- 5151 Oct, [facility] [address] [id number] [place] [address]- 1542 Oct, [facility] [place] [facility] [address] [id number] [place] [address]- 6062 Sep, [facility] [address] [id number] [place] [address]- 7353 Sep, [facility] [place] [facility] [address] [id number] [place] [address]- 4484 Sep, [facility] [address] [id number] [place] [address]- 3561 Sep, [facility] [address] [id number] [place] [address]- 5019 Sep, [facility] [address] [id number] [place] [address]- 9729 Sep, [facility] [address] [id number] [place] [address]- 1177 Sep, [facility] [place] [facility] [address] [id number] [place] [address]- 7042 Sep, [facility] [address] [facility] [id number] [place] [address]- 0225 Aug, [facility] [place] [facility] [address] [id number] [place] [address]- 6271 Aug, [facility] [place] [facility] [address] [id number] [place] [address]- 4421 Aug, [facility] [place] [facility] [address] [id number] [place] [address]- 7035 Jul, [facility] [place] [facility] [address] [id number] [place] [address] 2547 Jun, [facility] [place] [facility] [address] [id number] [place] [address]- 2425 Jun, [facility] [address] [id number] [place] [address]- 0781 Jun, [facility] [address] [id number] [place] [address]- 0952 Jun, [facility] [address] [id number] [place] [address]- 9367 Jun, [facility] [place] [facility] [address] [id number] [place] [address]- 1988 May, [facility] [address] [id number] [place] [address]- 9024 May, [facility] [address] [id number] [place] [address]- 4414 Apr, [facility] [address] [id number] [place] [address]- 6740 Apr, [facility] [address] [id number] [place] [address]- 7604 March, [facility] [address] [id number] [place] [address]- 3765 March, [facility] [address] [id number] [place] [address]- 1372 March, [facility] [address] [id number] [place] [address]- 9318 March, [facility] [place] [facility] [address] [id number] [place] [address]- 9452 March, [facility] [place] [facility] [address] [id number] [place] [address]- 6563 Feb, [facility] [place] [facility] [address] [id number] [place] [address]- 2124 Feb, [facility] [place] [facility] [address] [id number] [place] [address]- 0460 Feb, [facility] [place] [facility] [address] [id number] [place] [address]- 9103 Jan, [facility] [address] [id number] [place] [address]- 3081 Dec, [facility] [place] [facility] [address] [id number] [place] [address]- 4656 Dec, [facility] [address] [id number] [place] [address]- 6466 18 Dec, 2012 [facility] [place] [facility] [address] [id number] [place] [address]- 2286 Dec, [facility] [address] [id number] [place] [address]- 1273 Nov, [facility] [address] [id number] [place] [address]- 5908 Nov, [facility] [address] [id number] [place] [address]- 8942 Nov, [facility] [address] [id number] [place] [address]- 9329 Nov, [facility] [address] [id number] [place] [address]- 9657 Oct, [facility] [address] [id number] [place] [address]- 9826 Oct, [facility] [address] [id number] [place] [address]- 5252 Oct, [facility] [place] [facility] [address] [id number] [place] [address]- 0525 Oct, [facility] [place] [facility] [address] [id number] [place] [address]- 0598 14 Sep, 2012 [facility] [place] [facility] [address] [id number] [place] [address]- 8112 14 Sep, 2012 [facility] [place] [facility] [address] [id number] [place] [address]- 0029 13 Sep, 2012 [facility] [place] [facility] [address] [id number] [place] [address]- 7209 Sep, [facility] [place] [facility] [address] [id number] [place] [address]- 2577 Sep, [facility] [place] [facility] [address] [id number] [place] [address]- 2546 Sep, [facility] [place] [facility] [address] [id number] [place] [address]- 2038 Aug, [facility] [place] [facility] [address] [id number] [place] [address]- 4704 Aug, [facility] [place] [facility] [address] [id number] [place] [address]- 5017 Aug, [facility] [place] [facility] [address] [id number] [place] [address]- 3820 Jul, [facility] [place] [facility] [address] [id number] [place] [address]- 8908 Jul, [facility] [place] [facility] [address] [id number] [place] [address]- 7791 Jun, [facility] [place] [facility] [address] [id number] [place] [address]- 2865 May, [facility] [place] [facility] [address] [id number] [place] [address]- 8606 May, [facility] [place] [facility] [address] [id number] [place] [address]- 7137 Apr, [facility] [place] [facility] [address] [id number] [place] [address]- 7360 Apr, [facility] [place] [facility] [address] [id number] [place] [address]- 1578 March, [facility] [place] [facility] [address] [id number] [place] [address]- 4216 March, [facility] [place] [facility] [address] [id number] [place] [address]- 6342 19 Feb, 2012 [facility] [address] [id number] [place] [address]- 2480 16 Feb, 2012 [facility] [place] [facility] [address] [facility] [id number] [place] [address]- 4186 09 Feb, 2012 [facility] [place] [facility] [address] [facility] [id number] [place] [address]- 8356 06 Feb, 2012 [facility] [place] [facility] [address] [facility] [id number] [place] [address]- 9399 15 Jan, 2012 [facility] [place] [facility] [address] [id number] [place] [address]- 3946 07 Jan, 2012 [facility] [place] [facility] [address] [facility] [id number] [place] [address]- 6444 29 Dec, 2011 [facility] [address] [facility] [id number] [place] [address]- 7431 28 Dec, 2011 [facility] [place] [facility] [address] [facility] [id number] [place] [address]- 6172 26 Dec, 2011 [facility] [place] [facility] [address] [facility] [id number] [place] [address]- 7220 23 Dec, 2011 [facility] [place] [facility] [address] [facility] [id number] [place] [address]- 5909 20 Dec, 2011 [facility] [place] [facility] [address] [facility] [id number] [place] [address]- 2397 15 Dec, 2011 [facility] [place] [facility] [address] [facility] [id number], [place] [address]- 7583 10 Dec, 2011 [facility] [place] [facility] [address] [facility] [id number] [place] [address]- 7628 09 Dec, 2011 [facility] [place] [facility] [address] [facility] [id number], [place] [address]- 9242 08 Dec, 2011 [facility] [place] [facility] [address] [facility] [id number], [place] [address]- 8820 07 Dec, 2011 [facility] [place] [facility] [address] [id number] [place] [address]- 7032 Dec, [facility] [place] [facility] [address] [id number] [place] [address]- 1636 Dec, [facility] [place] [facility] [address] [id number] [place] [address]- 9397 Dec, [facility] [place] [facility] [address] [id number] [place] [address]- 6618 Nov, [facility] [place] [facility] [address] [id number] [place] [address]- 6031 Nov, [facility] [place] [facility] [address] [id number] [place] [address]- 0807 Nov, [facility] [place] [facility] [address] [id number] [place] [address]- 9576 Nov, [facility] [place] [facility] [address] [id number] [place] [address]- 2439 Nov, [facility] [place] [facility] [address] [id number] [place] [address]- 5738 Nov, [facility] [place] [facility] [address] [id number] [place] [address]- 5988 Oct, [facility] [place] [facility] [address] [id number] [place] [address]- 3440 Oct, [facility] [place] [facility] [address] [id number], [place] [address]- 1442 Sep, [facility] [place] [facility] [address] [id number] [place] [address]- 1531 Sep, [facility] [place] [facility] [address] [id number] [place] [address]- 5830 Sep, [facility] [place] [facility] [address] [id number], [place] [address]- 3499 Sep, [facility] [place] [facility] [address] [id number], [place] [address]- 5199 Sep, [facility] [place] [facility] [id number] [address]- 4292 March, [facility] [place] [facility] [id number], [place] [address]- 8613 Oct, [facility] [place] [facility] [id number], [place] [address]- 0513 Oct, [facility] [place] [facility] [id number], [place] [address]- 6415 Oct, [facility] [place] [facility] [id number], [place] [address]- 0812 Sep, [facility] [place] [facility] [id number] 6819 Sep, [facility] [place] [facility] [id number], [place] [address]- 5468 Sep, [facility] [place] [facility] [id number], [place] [address]- 4345 Sep, [facility] [place] [facility] [id number] [address] Aug, [facility] [place] [facility] [id number], [place] [address]- 7948 Oct, [facility] [place] [facility] [address] [id number], [place] [address]- 2516 Oct, [facility] [place] [facility] [address] [id number], [place] [address]- 4790 May, IMMUNIZATIONS No Known Immunizations SOCIAL HISTORY Never Assessed REASON FOR VISIT Requesting return call PLAN OF CARE VITAL SIGNS MEDICATIONS Unknown Medications RESULTS No Results PROCEDURES No Known procedures INSTRUCTIONS MEDICATIONS ADMINISTERED No Known Medications MEDICAL (GENERAL) HISTORY Type Description Date Medical History hypertension Medical History panic attacks Surgical History cholecystectomy 2009 Hospitalization History surgery
--- OUTSIDE RECORDS SUMMARY | 2018-12-11 10:39 | XMS REPORT ---
Author LEIDA Colunga Organization [employer] Address Unknown Phone Unavailable Care Team Providers Care Spice Mixer Name Role Phone LEIDA ANDINO CP Unavailable [...] Instructions Start Date End Date Status Dosage Pantoprazole Sodium [facility] [address]-21 40 mg TAKE ONE TABLET BY MOUTH DAILY Amlodipine Besylate [facility] [address]-39 10 mg TAKE ONE TABLET BY MOUTH DAILY Results No Known Results Summary Purpose [employer] Submission
--- OUTSIDE RECORDS SUMMARY | 2018-12-11 10:39 | XMS REPORT ---
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 Name Role Phone LEIDA ANDINO Unavailable PROBLEMS Type Condition ICD9-CM Code NLR03-IA Code Onset Dates Condition Status SNOMED Code Problem Stress incontinence of urine N39.3 Active 93326268 Problem Anxiety F41.9 Active 37241472 Problem Anxiety disorder, unspecified F41.9 Active 855972204 Problem Unspecified episodic mood disorder F39 Active 119129933 Problem Unspecified personality disorder F60.9 Active 16207850 ALLERGIES No Information ENCOUNTERS Encounter Location Date Diagnosis [place] [id number] [place] [address] 19107- 1004 Apr, [place] [id number] [place] [address] 32795- 0899 March, Anxiety disorder, unspecified F41.9 [place] [id number] [place] [address] 70735- 1301 March, Unspecified episodic mood disorder F39 ; Anxiety disorder, unspecified F41.9 and Unspecified personality disorder F60.9 [place] [id number] [place] [address] 63766- 0808 March, Anxiety disorder, unspecified F41.9 [place] [id number] [place] [address] 04883- 0591 Feb, Unspecified episodic mood disorder F39 ; Anxiety disorder, unspecified F41.9 and Unspecified personality disorder F60.9 [place] [id number] [place] [address] 51626- 0596 Feb, Unspecified episodic mood disorder F39 ; Anxiety disorder, unspecified F41.9 and Unspecified personality disorder F60.9 [facility] [address] [address] 287[address] Feb, Anxiety disorder, unspecified F41.9 [facility] [id number] [place] [address] 27686- 6586 Jan, Unspecified episodic mood disorder F39 ; Anxiety disorder, unspecified F41.9 and Unspecified personality disorder F60.9 [facility] [id number] [place] [address] 42226- 2243 Jan, Anxiety F41.9 [facility] [id number] [place] [address] 67059- 2566 Jan, Anxiety disorder, unspecified F41.9 [facility] [id number] [place] [address] 64002- 6645 Dec, Unspecified episodic mood disorder F39 ; Anxiety disorder, unspecified F41.9 and Unspecified personality disorder F60.9 [facility] [address] [place] [address] 95751- 0921 Dec, Anxiety F41.9 [facility] [id number] [place] [address] 39455- 0965 Dec, Anxiety disorder, unspecified F41.9 [facility] [address] [address] 3640 Dec, Unspecified episodic mood disorder F39 ; Anxiety disorder, unspecified F41.9 and Unspecified personality disorder F60.9 [facility] [address] [address]- 7341 Nov, [facility] [id number] [place] [address] 16729- 4313 Nov, [facility] [address] [place] [address] 96578- 3522 Nov, Unspecified episodic mood disorder F39 ; Anxiety disorder, unspecified F41.9 and Unspecified personality disorder F60.9 [place] [address] [address]- 4975 Nov, Anxiety disorder, unspecified F41.9 [place] [id number] [place] [address] 56383- 4510 Oct, Unspecified episodic mood disorder F39 ; Anxiety disorder, unspecified F41.9 and Unspecified personality disorder F60.9 [place] [id number] [place] [address] 95665- 7206 Oct, Vaginal yeast infection B37.3 [place] [id number] [place] [address] 48940- 9970 Oct, [place] [id number] [place] [address] 17588- 7778 Oct, Anxiety disorder, unspecified F41.9 [place] [id number] [place] [address] 91073- 5164 Oct, Routine gynecological examination Z01.419 ; Screening for breast cancer Z12.31 and Vaginal yeast infection B37.3 [place] [id number] [place] [address] 52703- 3869 Sep, Unspecified episodic mood disorder F39 ; Anxiety disorder, unspecified F41.9 and Unspecified personality disorder F60.9 [place] [id number] [place] [address] 99087- 2399 Sep, [place] [address] [place] [address] 15698- 6259 Sep, Anxiety disorder, unspecified F41.9 [place] [address] [place] [address] 13588- 7189 Sep, Bronchitis J40 and Stress incontinence of urine N39.3 [place] [id number] [place] [address] 20552- 7742 Sep, Stress incontinence of urine N39.3 ; Bronchitis J40 and Anxiety F41.9 [place] [id number] [address]- 1900 Sep, [facility] [id number] [place] [address] 12499- 5695 Sep, Unspecified episodic mood disorder F39 ; Anxiety disorder, unspecified F41.9 and Unspecified personality disorder F60.9 [facility] [id number] [place] [address] 88719- 3429 Aug, Anxiety F41.9 ; Stress incontinence of urine N39.3 and Encounter for immunization Z23 [facility] [id number] [place] [address] 82195- 4857 Aug, Anxiety disorder, unspecified F41.9 [place] [id number] [place] [address] 05358- 9534 Jul, Unspecified episodic mood disorder F39 ; Anxiety disorder, unspecified F41.9 and Unspecified personality disorder F60.9 [place] [id number] [place] [address] 22384- 0136 Jul, [facility] [id number] [place] [address] 58540- 9138 Jul, Unspecified episodic mood disorder F39 ; Anxiety disorder, unspecified F41.9 and Unspecified personality disorder F60.9 [facility] [id number] [place] [address] 78354- 8589 Jul, Anxiety disorder, unspecified F41.9 [facility] [address] [place] [address] 31532- 4563 Jun, Unspecified episodic mood disorder F39 ; Anxiety disorder, unspecified F41.9 and Unspecified personality disorder F60.9 [facility] [id number] [place] [address] 98452- 4916 Jun, Anxiety disorder, unspecified F41.9 [facility] [address] [place] [address] 28469- 1022 Jun, Unspecified episodic mood disorder F39 ; Anxiety disorder, unspecified F41.9 and Unspecified personality disorder F60.9 [facility] [address] [address]- 5327 Jun, [facility] [id number] [place] [address] 64247- 4577 May, Anxiety disorder, unspecified F41.9 [facility] [id number] [place] [address] 64697- 2817 May, Unspecified episodic mood disorder F39 ; Anxiety disorder, unspecified F41.9 and Unspecified personality disorder F60.9 [facility] [id number] [place] [address] 85170- 1692 Apr, Anxiety disorder, unspecified F41.9 [facility] [id number] [place] [address] 58202- 9360 March, Unspecified episodic mood disorder F39 ; Anxiety disorder, unspecified F41.9 and Unspecified personality disorder F60.9 [facility] [id number] [place] [address] 63516- 6768 March, Bronchitis J40 [facility] [id number] [place] [address] 50832- 8515 March, Unspecified episodic mood disorder F39 ; Anxiety disorder, unspecified F41.9 and Unspecified personality disorder F60.9 [facility] [address] [place] [address] 60632- 1668 Feb, [facility] [id number] [place] [address] 16889- 7768 Feb, Unspecified episodic mood disorder F39 ; Anxiety disorder, unspecified F41.9 and Unspecified personality disorder F60.9 [facility] [address] [place] [address] 85936- 1856 Feb, Bronchitis J40 [facility] [id number] [place] [address] 19095- 3233 Feb, Unspecified episodic mood disorder F39 ; Anxiety disorder, unspecified F41.9 and Unspecified personality disorder F60.9 [facility] [address] [place] [address] 74676- 2392 Jan, Unspecified episodic mood disorder F39 ; Anxiety disorder, unspecified F41.9 and Unspecified personality disorder F60.9 [facility] [address] [address]- 9922 Jan, Bronchitis J40 [facility] [address] [place] [address] 78199- 5214 Jan, Unspecified episodic mood disorder F39 ; Anxiety disorder, unspecified F41.9 and Unspecified personality disorder F60.9 [facility] [address] [place] [address] 77910- 6567 Dec, Anxiety F41.9 [place] [address] [place] [address] 65217- 7814 Dec, Unspecified episodic mood disorder F39 ; Anxiety disorder, unspecified F41.9 and Unspecified personality disorder F60.9 [facility] [id number] [address] Dec, [facility] [address] [place] [address] 93929- 7766 Dec, Unspecified episodic mood disorder F39 ; Anxiety disorder, unspecified F41.9 and Unspecified personality disorder F60.9 [facility] [address] [address]- 4964 Nov, [facility] [address] [place] [address] 69593- 5405 Oct, Unspecified episodic mood disorder F39 ; Anxiety disorder, unspecified F41.9 and Unspecified personality disorder F60.9 [facility] [address] [place] [address] 75582- 6537 Oct, [facility] [address] [place] [address] 43136 -1138 Oct, Acute upper respiratory infection, unspecified J06.9 ; Other viral agents as the cause of diseases classified elsewhere B97.89 and Cough R05 [facility] [address] [address]- 6527 Aug, Unspecified episodic mood disorder F39 ; Anxiety disorder, unspecified F41.9 and Unspecified personality disorder F60.9 [facility] [id number] [place] [address] 04386- 9044 Aug, [facility] [address] [place] [address] 80601- 5647 Aug, [facility] [id number] [place] [address] 89087- 4386 Aug, [facility] [id number] [place] [address] 81840- 3786 Aug, Visit for TB skin test Z11.1 [facility] [id number] [address]- 2644 Jul, [facility] [id number] [place] [address] 10674- 1680 Jul, [facility] [address], [place] [address]- 8499 Jul, [facility] [address] [address]- 6399 Jul, [facility] [address] [address]- 0331 Jul, [facility] [address] [place] [address] 84042- 2231 Jul, Unspecified episodic mood disorder F39 ; Anxiety disorder, unspecified F41.9 and Unspecified personality disorder F60.9 [facility] [address] [address]- 4077 Jun, [facility] [id number] [address]- 5210 Jun, Unspecified episodic mood disorder F39 ; Anxiety disorder, unspecified F41.9 and Unspecified personality disorder F60.9 [facility] [address] [place] [address] 44397- 8392 Jun, [facility] [address] [place] [address] 63108- 4348 May, Unspecified episodic mood disorder F39 ; Anxiety disorder, unspecified F41.9 and Unspecified personality disorder F60.9 [facility] [address] [place] [address] 98516- 2594 May, [facility] [id number] [place] [address] 38006- 7975 May, [facility] [id number] [place] [address] 27522- 6774 May, Edema, unspecified R60.9 [facility] [address] [address]- 3055 Apr, [facility] [id number] [place] [address] 81718- 6053 Apr, Unspecified episodic mood disorder F39 ; Anxiety disorder, unspecified F41.9 and Unspecified personality disorder F60.9 [facility] [address] [address]- 2049 Apr, Anxiety F41.9 [facility] [address] [address]- 4432 March, Unspecified episodic mood disorder F39 ; Anxiety disorder, unspecified F41.9 and Unspecified personality disorder F60.9 [facility] [address] [place] [address] 74025- 3153 March, Unspecified episodic mood disorder F39 ; Anxiety disorder, unspecified F41.9 and Unspecified personality disorder F60.9 [facility] [address] [place] [address] 21110- 8847 Feb, Anxiety F41.9 [facility] [address] [place] [address] 71801- 4475 Feb, Unspecified episodic mood disorder F39 ; Anxiety disorder, unspecified F41.9 and Unspecified personality disorder F60.9 [facility] [id number] [place] [address] 47168- 6941 Jan, Unspecified episodic mood disorder F39 ; Anxiety disorder, unspecified F41.9 and Unspecified personality disorder F60.9 [facility] [address] [place] [address] 13149- 0421 Jan, Unspecified episodic mood disorder F39 ; Anxiety disorder, unspecified F41.9 and Unspecified personality disorder F60.9 [facility] [id number] [place] [address] 90769- 5036 Jan, Edema, unspecified R60.9 [facility] [address] [place] [address] 10878- 6553 Dec, [facility] [address] [place] [address] 04350- 8288 Dec, [facility] [id number] [place] [address] 52335- 2945 Dec, [facility] [address] [place] [address] 11355- 3856 Dec, Unspecified episodic mood disorder F39 ; Anxiety disorder, unspecified F41.9 and Unspecified personality disorder F60.9 [facility] [address] [place] [address] 01891- 3344 Nov, [facility] [id number] [place] [address] 62903- 4419 Nov, Unspecified episodic mood disorder F39 ; Anxiety disorder, unspecified F41.9 and Unspecified personality disorder F60.9 [facility] [id number] [place] [address] 2546 Oct, Unspecified episodic mood disorder F39 ; Anxiety disorder, unspecified F41.9 and Unspecified personality disorder F60.9 [place] [id number] [place] [address] 54469- 0363 Oct, Unspecified episodic mood disorder F39 ; Anxiety disorder, unspecified F41.9 and Unspecified personality disorder F60.9 [place] [id number] [place] [address] 35435- 6326 Sep, Unspecified episodic mood disorder F39 ; Anxiety disorder, unspecified F41.9 and Unspecified personality disorder F60.9 [place] [id number] [place] [address] 90732- 0418 Sep, Encounter for immunization Z23 [place] [id number] [place] [address] 86788- 7936 Sep, Edema of left lower extremity R60.0 [facility] [id number] [place] [address] 71497- 7165 Aug, Unspecified episodic mood disorder F39 ; Anxiety disorder, unspecified F41.9 and Unspecified personality disorder F60.9 [place] [id number] [place] [address] 27129- 3974 Aug, [facility] [id number] [place] [address] 96086- 1506 Aug, Edema of left lower extremity R60.0 [facility] [id number] [place] [address] 68704- 6918 Aug, [facility] [id number] [place] [address] 48873- 3423 Aug, Unspecified episodic mood disorder F39 ; Anxiety disorder, unspecified F41.9 and Unspecified personality disorder F60.9 [facility] [address] [place] [address] 69726- 8239 Jul, Unspecified episodic mood disorder 296.90 ; Anxiety disorder , unspecified 300.00 and Unspecified personality disorder 301.9 [facility] [address] [address]- 2187 Jul, Unspecified episodic mood disorder 296.90 ; Anxiety disorder , unspecified 300.00 and Unspecified personality disorder 301.9 [facility] [address] [address]- 6690 Jul, [facility] [id number] [place] [address] 58111- 9287 Jun, Unspecified episodic mood disorder 296.90 ; Anxiety disorder , unspecified 300.00 and Unspecified personality disorder 301.9 [facility] [id number] [place] [address] 33743- 2755 May, Unspecified episodic mood disorder 296.90 ; Anxiety disorder , unspecified 300.00 and Unspecified personality disorder 301.9 [facility] [id number] [place] [address] 29118- 7246 May, Anxiety disorder, unspecified 300.00 [facility] [id number] [place] [address] 40575- 3769 May, Anxiety disorder, unspecified 300.00 and Edema 782.3 [facility] [address] [place] [address] 13674- 8219 May, Unspecified episodic mood disorder 296.90 ; Anxiety disorder , unspecified 300.00 and Unspecified personality disorder 301.9 [facility] [address] [address]- 9864 Apr, [facility] [address] [place] [address] 23955- 3420 Apr, Unspecified episodic mood disorder 296.90 ; Anxiety disorder , unspecified 300.00 and Personality disorder, unspecified 301.9 [facility] [address] [address]- 2780 Apr, Unspecified episodic mood disorder 296.90 ; Anxiety disorder , unspecified 300.00 and Unspecified personality disorder 301.9 [facility] [address] [facility] [id number] [address]- 8060 March, [facility] [address] [address]- 2570 March, Unspecified episodic mood disorder 296.90 ; Anxiety disorder , unspecified 300.00 and Unspecified personality disorder 301.9 [facility] [id number] 8582 March, Unspecified episodic mood disorder 296.90 ; Anxiety disorder 300.00 and Unspecified personality disorder 301.9 [facility] [address] 5516 March, [facility] [id number] [address]- 6859 March, [facility] [address] [address]- 0490 Feb, [facility] [address], [place] [address]- 0425 Feb, [facility] [address] [address]- 5509 Feb, [facility] [id number] [address]- 1713 Jan, [facility] [address] [address]- 7597 Jan, [facility] [id number] [address]- 3143 Jan, [facility] [id number] [address]- 2646 Jan, [facility] [id number] [address]- 5406 Jan, [facility] [address] [address]- 4099 Jan, [facility] [place] [facility] [address] [id number] [place] [id number] Jan, 2014 [facility] [place] [facility] [address] [id number] [place] [address]- 2513 Jan, 2014 [facility] [place] [facility] [address] [id number] [place] [address]- 9305 Jan, 2014 [facility] [place] [facility] [address] [id number] [place] [address]- 1013 Jan, 2014 [facility] [place] [facility] [address] [id number] [place] [address]- 5731 Jan, 2014 [facility] [place] [facility] [address] [id number] [place] [address]- 5801 Jan, 2014 [facility] [place] [facility] [address] [id number] [place] [address]- 6200 Jan, 2014 [facility] [place] [facility] [address] [id number] [place] [address]- 8253 Jan, [facility] [place] [facility] [address] [id number] [place] [address]- 6982 Jan, [facility] [place] [facility] [address] [id number] [place] [address]- 4866 Jan, [facility] [place] [facility] [address] [id number] [place] [address]- 7855 Dec, 2014 [facility] [place] [facility] [address] [id number] [address]- 8385 Dec, 2014 [facility] [place] [facility] [address] [id number] [place] 8983 Dec, [facility] [place] [facility] [address] [id number] [place] [address]- 2530 Dec, 2014 [facility] [place] [facility] [address] [id number] [place] 1180 Nov, [facility] [place] [facility] [address] [id number] [address]- 6114 Nov, [facility] [address] [id number] [place] [address]- 2959 Nov, [facility] [place] [facility] [address] [id number] [place] [address]- 1696 Nov, [facility] [place] [facility] [address] [id number] [place] [address]- 2879 Oct, [facility] [place] [facility] [address] [id number] [place] [address] Oct, [facility] [place] [facility] [address] [id number] [place] [address] Oct, [facility] [place] [facility] [address] [id number] [place] [address] Oct, [facility] [place] [facility] [address] [id number] [place] [address] Oct, [facility] [place] [facility] [address] [id number] [place] [address] Oct, [facility] [place] [facility] [address] [id number] [place] [address] Oct, [facility] [place] [facility] [address] [id number] [place] [address] Oct, [facility] [place] [facility] [address] [id number] [place] [address] 2426 Oct, [facility] [place] [facility] [address] [id number] [place] [address] 6044 Oct, [facility] [place] [facility] [address] [id number] [place] [address] 3090 Oct, [facility] [place] [facility] [address] [id number] [place] [address] 5994 Oct, [facility] [place] [facility] [address] [id number] [place] [address] 5953 Oct, [facility] [place] [facility] [address] [id number] [place] [address] 8122 Oct, [facility] [place] [facility] [address] [id number] [place] [address]- 5058 Oct, [facility] [place] [facility] [address] [id number] [place] [address]- 1709 Oct, [facility] [place] [facility] [address] [id number] [place] [address]- 8642 Sep, [facility] [place] [facility] [address] [id number] [place] [address] 6689 Sep, [facility] [place] [facility] [address] [id number] [place] [address]- 2566 Sep, [facility] [place] [facility] [address] [id number] [place] [address]- 7547 Sep, [facility] [place] [facility] [address] [id number] [place] [address]- 4789 Sep, [facility] [place] [facility] [address] [id number] [place] [address]- 6352 Sep, [facility] [place] [facility] [address] [id number] [place] [address]- 9343 Sep, [facility] [place] [facility] [address] [id number] [place] [address]- 2911 Sep, [facility] [place] [facility] [address] [id number] [place] [address]- 7951 Sep, [facility] [place] [facility] [address] [id number] [place] [address]- 8005 Sep, [facility] [place] [facility] [address] [id number] [place] [address]- 0913 Aug, [facility] [place] [facility] [address] [id number] [place] [address]- 0990 Aug, [facility] [place] [facility] [address] [id number] [place] [address]- 0687 Aug, [facility] [place] [facility] [address] [id number] [place] [address]- 3232 14 Aug, 2014 [facility] [place] [facility] [address] [id number] [place] [address]- 9184 Aug, [facility] [place] [facility] [address] [id number] [place] [address]- 2514 Aug, [facility] [place] [facility] [address] [id number] [place] [address]- 3994 Aug, [facility] [place] [facility] [address] [id number] [place] [address]- 8152 Aug, [facility] [place] [facility] [address] [id number] [place] [address]- 1264 29 Jul, 2014 [facility] [place] [facility] [address] [id number] [place] [address]- 0729 Jul, [facility] [place] [facility] [address] [id number] [place] [address]- 0144 05 Jul, 2014 [facility] [place] [facility] [address] [id number] [place] [address]- 9762 05 Jul, 2014 [facility] [place] [facility] [address] [id number] [place] [address]- 7928 05 Jul, 2014 [facility] [place] [facility] [address] [id number] [place] [address]- 3654 Jul, [facility] [place] [facility] [address] [id number] [address] 56[address] Jun, [facility] [place] [facility] [address] [id number] [place] [address]- 0047 Jun, [facility] [place] [facility] [address] [id number] [place] [address]- 0110 May, [facility] [place] [facility] [address] [id number] [place] [address]- 0782 May, [facility] [place] [facility] [address] [id number] [place] [address]- 4004 May, [facility] [place] [facility] [address] [id number] [place] [address]- 0602 May, [facility] [place] [facility] [address] [id number] [place] [address]- 1872 May, [facility] [place] [facility] [address] [id number] [place] [address]- 6764 May, [facility] [place] [facility] [address] [id number] [place] [address]- 2181 May, [facility] [place] [facility] [address] [id number] [place] [address]- 0708 May, [facility] [place] [facility] [address] [id number] [place] [address]- 9573 Apr, [facility] [place] [facility] [address] [id number] [place] [address]- 2546 Apr, [facility] [place] [facility] [address] [id number] [place] [address]- 6533 March, [facility] [place] [facility] [address] [id number] [place] [address]- 1413 March, [facility] [place] [facility] [address] [id number] [place] [address]- 7107 Feb, [facility] [place] [facility] [address] [id number] [place] [address]- 3412 Feb, [facility] [place] [facility] [address] [id number] [place] [address]- 5899 Feb, [facility] [place] [facility] [address] [id number] [place] [address]- 5282 Feb, [facility] [place] [facility] [address] [id number] [place] [address]- 8049 Feb, [facility] [place] [facility] [address] [id number] [place] [address]- 2337 Feb, [facility] [place] [facility] [address] [id number] [place] [address]- 9765 Feb, [facility] [place] [facility] [address] [id number] [place] [address]- 7935 Feb, [facility] [place] [facility] [address] [id number] [place] [address]- 6955 Feb, [facility] [place] [facility] [address] [id number] [place] [address]- 0386 Feb, [facility] [place] [facility] [address] [id number] [place] [address]- 8022 Jan, [facility] [place] [facility] [address] [id number] [place] [address]- 3721 Jan, [facility] [place] [facility] [address] [facility] [id number] [place] [address]- 3534 Jan, [facility] [place] [facility] [address] [id number] [place] [address]- 5881 Jan, [facility] [place] [facility] [address] [id number] [place] [address]- 7303 Jan, [facility] [place] [facility] [address] [id number] [place] [address]- 9822 Dec, [facility] [place] [facility] [address] [facility] [id number] [place] [address]- 8158 Dec, [facility] [place] [facility] [address] [id number] [address]- 6328 Dec, [facility] [place] [facility] [address] [id number] [place] [address]- 2805 Dec, [facility] [place] [facility] [address] [id number] [place] [address]- 3127 Dec, [facility] [place] [facility] [address] [id number] [place] Dec, [facility] [place] [facility] [address] [id number] [address] 4508 Nov, [facility] [address] [id number] [place] [address]- 9903 Nov, [facility] [place] [facility] [address] [id number] [place] [address]- 6801 Nov, [facility] [address] [facility] [id number] [place] [address]- 0759 Nov, [facility] [place] [facility] [address] [id number] [place] [address]- 7986 Nov, [facility] [address] [id number] [place] [address]- 9389 Nov, [facility] [address] [id number] [place] [address]- 6675 Nov, [facility] [address] [facility] [id number] [address]- 3819 Nov, [facility] [place] [facility] [address] [id number] [place] [address]- 4465 Oct, [facility] [address] [id number] [place] [address]- 2750 Oct, [facility] [place] [facility] [address] [facility] [id number] [place] [address]- 1410 Oct, [facility] [place] [facility] [address] [id number] [address]- 0427 Oct, [facility] [place] [facility] [address] [id number] [address]- 1363 Oct, [facility] [place] [facility] [address] [id number] [address]- 3460 Oct, [facility] [place] [facility] [address] [facility] [id number][place] [address]- 6185 Oct, [facility] [place] [facility] [address] [facility] [id number] [address]- 1040 Oct, [facility] [place] [facility] [address] [id number] [place] [address]- 6753 Sep, [facility] [place] [facility] [address] [id number] [place]696 Sep, [facility] [place] [facility] [address] [id number] [place] [address]- 2070 Sep, [facility] [place] [facility] [address] [id number] [place] [address]- 0548 14 Sep, 2013 [facility] [place] [facility] [address] [id number] [place] [address]- 2159 Sep, [facility] [place] [facility] [address] [id number] [place] [address]- 9660 Sep, [facility] [place] [facility] [address] [id number] [place] [address]- 3573 Sep, [facility] [place] [facility] [address] [id number] [place] [address]- 4395 Sep, [facility] [place] [facility] [address] [id number] [place] [address]- 8740 Aug, [facility] [place] [facility] [address] [id number] [place] [address]- 6568 Aug, [facility] [place] [facility] [address] [id number] [place] Aug, [facility] [place] [facility] [address] [id number] [place] [address]- 0793 Jul, [facility] [place] [facility] [address] [id number] [place] [address]- 7306 Jun, [facility] [place] [facility] [address] [id number] [place] [address]- 4405 Jun, [facility] [place] [facility] [address] [id number] [place] [address]- 3777 Jun, [facility] [place] [facility] [address] [id number] [place] [address]- 1407 Jun, [facility] [address] [id number] [place] [address]- 4338 Jun, [facility] [place] [facility] [address] [id number] [place] [address]- 2572 May, [facility] [place] [facility] [address] [id number] [place] [address]- 8552 May, [facility] [address] [id number] [place] [address]- 1241 Apr, [facility] [address] [id number] [place] [address]- 9201 Apr, [facility] [address] [id number] [place] [address]- 9206 March, [facility] [address] [id number] [place] [address]- 9077 March, [facility] [place] [facility] [address] [id number] [place] [address]- 9367 March, [facility] [address] [id number] [place] [address]- 7971 March, [facility] [address] [id number] [place] [address]- 1351 March, [facility] [address] [id number] [place] [address]- 4364 Feb, [facility] [place] [facility] [address] [id number] [address]- 3639 Feb, [facility] [place] [facility] [address] [id number] [place] [address]- 4166 Feb, [facility] [place] [facility] [address] [id number] [place] [address]- 1324 Jan, [facility] [place] [facility] [address] [id number] [place] [address]- 6693 Dec, [facility] [place] [facility] [address] [id number] [place] [address]- 3503 27 Dec, 2012 [facility] [address] [id number] [place] [address]- 8896 18 Dec, 2012 [facility] [address] [id number] [place] [address] 2546 Dec, [facility] [address] [id number] [place] [address]- 9564 28 Nov, 2012 [facility] [address] [id number] [place] [address]- 7089 Nov, [facility] [address] [id number] [place] [address]- 5336 Nov, [facility] [address] [id number] [place] [address]- 8675 Nov, [facility] [address] [id number] [place] [address]- 4040 Oct, [facility] [address] [id number] [place] [address]- 7650 Oct, [facility] [address] [id number] [place] [address]- 5256 Oct, [facility] [address] [id number] [place] [address]- 3101 06 Oct, 2012 [facility] [address] [id number] [place] [address]- 5652 14 Sep, 2012 [facility] [address] [id number] [place] [address]- 8356 14 Sep, 2012 [facility] [place] [facility] [address] [id number] [place] [address]- 2241 13 Sep, 2012 [facility] [address] [id number] [place] [address]- 0566 13 Sep, 2012 [facility] [address] [id number] [place] [address]- 7074 Sep, [facility] [place] [facility] [address] [id number] [place] [address]- 0816 Sep, [facility] [place] [facility] [address] [id number] [place] [address]- 0126 Aug, [facility] [place] [facility] [address] [id number] [place] [address]- 2546 Aug, [facility] [place] [facility] [address] [id number] [place] [address]- 2546 Aug, [facility] [place] [facility] [address] [id number] [place] [address]- 5346 Jul, [facility] [place] [facility] [address] [id number] [place] [address]- 9416 Jul, [facility] [place] [facility] [address] [id number] [place] [address]- 2546 Jun, [facility] [place] [facility] [address] [id number] [place] [address]- 1586 May, [facility] [place] [facility] [address] [id number] [place] [address]- 4717 May, [facility] [place] [facility] [address] [facility] [id number][place] [address]- 9026 Apr, [facility] [place] [facility] [address] [id number], [place] [address]- 2546 Apr, [facility] [place] [facility] [address] [id number] [address]- 2546 March, [facility] [place] [facility] [address] [id number] [place] [address]- 2546 March, [facility] [place] [facility] [address] [id number], [place] [address]- 7796 Feb, [facility] [place] [facility] [address] [id number], [place] [address]- 2546 Feb, [facility] [place] [facility] [address] [id number] [address]- 3498 09 Feb, 2012 [facility] [address] [id number] [place] [address]- 6516 06 Feb, 2012 [facility] [place] [facility] [address] [id number] [place] [address]- 0026 15 Jan, 2012 [facility] [place] [facility] [address] [facility] [id number] [place] [address]- 8346 Jan, [facility] [place] [facility] [address] [id number] [place] [address]- 8002 29 Dec, 2011 [facility] [place] [facility] [address] [id number] [place] [address]- 7086 28 Dec, 2011 [facility] [place] [facility] [address] [id number] [place] [address]- 0496 26 Dec, 2011 [facility] [place] [facility] [address] [id number] [place] [address]- 7416 23 Dec, 2011 [facility] [place] [facility] [address] [id number] [place] [address]- 7119 20 Dec, 2011 [facility] [place] [facility] [address] [facility] [id number] [place] [address]- 1743 15 Dec, 2011 [facility] [place] [facility] [address] [facility] [id number] [place] [address]- 4183 10 Dec, 2011 [facility] [place] [facility] [address] [facility] [id number] [place] [address] 2546 Dec, [facility] [place] [facility] [address] [facility] [id number] [place] [address] 2546 08 Dec, 2011 [facility] [place] [facility] [address] [id number] [place] [address]- 3446 07 Dec, 2011 [facility] [place] [facility] [address] [facility] [id number] [place] [address] 2546 02 Dec, 2011 [facility] [place] [facility] [address] [facility] [id number] [place] [address]- 2547 Dec, [facility] [place] [facility] [address] [id number] [place] [address]- 5929 Dec, [facility] [place] [facility] [address] [id number] [place] [address]- 8816 Nov, [facility] [place] [facility] [address] [id number] [place] [address]- 9331 Nov, [facility] [place] [facility] [address] [id number] [place] [address]- 1200 Nov, [facility] [place] [facility] [address] [id number] [place] [address]- 5912 Nov, [facility] [place] [facility] [address] [id number] [place] [address]- 1336 Nov, [facility] [place] [facility] [address] [id number] [place] [address]- 0646 Nov, [facility] [place] [facility] [address] [id number] [place] [address]- 6360 Oct, [facility] [place] [facility] [address] [id number] [place] [address]- 9023 Oct, [facility] [place] [facility] [address] [id number] [place] [address]- 3243 Sep, [facility] [place] [facility] [address] [id number], [place] [address]- 3791 Sep, [facility] [place] [facility] [address] [id number][place] [address]- 2700 Sep, [facility] [place] [facility] [address] [id number] [place] [address]- 5021 Sep, [facility] [place] [facility] [address] [id number] [address]- 9089 Sep, [facility] [place] [facility] [address] [id number] [place] [address]- 0559 March, [facility] [place] [facility] [address] [id number] [address]- 6376 Oct, [facility] [address] [facility] [id number], [place] [address]- 1146 Oct, [facility] [address] [facility] [id number][place] [address] 2546 Oct, [facility] [address] [facility] [id number][place] [address]- 5049 Sep, [facility] [address] [facility] [id number][place] [address]- 9294 Sep, [facility] [id number], [place] [address]- 3524 Sep, [facility] [address] [facility] [id number], [place] [address]- 9303 Sep, [facility] [id number], [place] [address]- 3383 Aug, [facility] [id number], [place] [address]- 0235 Oct, [facility] [id number], [place] [address]- 0136 Oct, [facility] [address] [id number], [place] [address]- 2454 May, IMMUNIZATIONS No Known Immunizations SOCIAL HISTORY Never Assessed REASON FOR VISIT Controlled Med Refill11/15/17 PLAN OF CARE VITAL SIGNS MEDICATIONS Medication [...]
--- OUTSIDE RECORDS SUMMARY | 2018-12-11 10:39 | XMS REPORT ---
Author LEIDA Colunga Organization [employer] Address Unknown Phone Unavailable Care Team Providers Care Copra Sampler Name Role Phone LEIDA ANDINO CP Unavailable [...] Start Date End Date Status Dosage Valium [facility] [address]-35 10 mg Orally Once a day as needed. February 02, 2015 1 tablet Results No Known Results Summary Purpose [employer] Submission
--- OUTSIDE RECORDS SUMMARY | 2018-12-11 10:40 | XMS REPORT ---
Author Author SANJEEV PHELPS [facility] Address [address] [place] [address] Care Team Providers Care Front Man Name Role Phone SANJEEV PHELPS Unavailable PROBLEMS Type Condition ICD9-CM Code ZJZ25-BI Code Onset Dates Condition Status SNOMED Code Problem Stress incontinence of urine N39.3 Active 99656803 Problem Anxiety F41.9 Active 44579673 Problem Anxiety disorder, unspecified F41.9 Active 030234752 Problem Unspecified episodic mood disorder F39 Active 333273690 Problem Unspecified personality disorder F60.9 Active 39568650 ALLERGIES No Information ENCOUNTERS Encounter Location Date Diagnosis [place] [id number] [place] [address] 42279- 5922 Apr, [place] [id number] [place] [address] 87353- 9834 March, Anxiety disorder, unspecified F41.9 [place] [id number] [place] [address] 28537- 7569 March, Unspecified episodic mood disorder F39 ; Anxiety disorder, unspecified F41.9 and Unspecified personality disorder F60.9 [place] [id number] [place] [address] 27238- 0540 March, Anxiety disorder, unspecified F41.9 [place] [id number] [place] [address] 86341- 3237 Feb, Unspecified episodic mood disorder F39 ; Anxiety disorder, unspecified F41.9 and Unspecified personality disorder F60.9 [place] [id number] [place] [address] 27504- 9629 Feb, Unspecified episodic mood disorder F39 ; Anxiety disorder, unspecified F41.9 and Unspecified personality disorder F60.9 [facility] [address], [place] [address] Feb, Anxiety disorder, unspecified F41.9 [facility] [id number] [place] [address] [id number]- 7196 Jan, Unspecified episodic mood disorder F39 ; Anxiety disorder, unspecified F41.9 and Unspecified personality disorder F60.9 [facility] [id number] [place] [address] 04503- 5500 Jan, Anxiety F41.9 [facility] [id number] [place] [address] 31550- 2650 Jan, Anxiety disorder, unspecified F41.9 [facility] [id number] [place] [address] 98527- 6041 Dec, Unspecified episodic mood disorder F39 ; Anxiety disorder, unspecified F41.9 and Unspecified personality disorder F60.9 [facility] [address], [place] [address] 2314 Dec, Anxiety F41.9 [facility] [id number] [place] [address] 80171- 9251 Dec, Anxiety disorder, unspecified F41.9 [facility] [address], [place] [address] 1865 Dec, Unspecified episodic mood disorder F39 ; Anxiety disorder, unspecified F41.9 and Unspecified personality disorder F60.9 [facility] [address] [address] 9095 Nov, [facility] [id number] [place] [address] 85935- 9101 Nov, [facility] [address], [place] [address]- 5580 Nov, Unspecified episodic mood disorder F39 ; Anxiety disorder, unspecified F41.9 and Unspecified personality disorder F60.9 [facility] [id number] [place] [address] 22808- 1358 Nov, Anxiety disorder, unspecified F41.9 [place] [id number] [place] [address] 73605- 8415 Oct, Unspecified episodic mood disorder F39 ; Anxiety disorder, unspecified F41.9 and Unspecified personality disorder F60.9 [place] [id number] [place] [address] 18935- 8191 Oct, Vaginal yeast infection B37.3 [place] [id number] [place] [address] 94515- 1300 Oct, [place] [id number] [place] [address] 24202- 3151 Oct, Anxiety disorder, unspecified F41.9 [place] [id number] [place] [address] 55436- 5325 Oct, Routine gynecological examination Z01.419 ; Screening for breast cancer Z12.31 and Vaginal yeast infection B37.3 [place] [id number] [place] [address] 03720- 8999 Sep, Unspecified episodic mood disorder F39 ; Anxiety disorder, unspecified F41.9 and Unspecified personality disorder F60.9 [place] [id number] [place] [address] 85807- 7215 Sep, [place] [id number] [place] [address] 40625- 9438 Sep, Anxiety disorder, unspecified F41.9 [place] [id number] [place] [address] 00618- 4297 Sep, Bronchitis J40 and Stress incontinence of urine N39.3 [place] [id number] [place] [address] 61800- 7952 Sep, Stress incontinence of urine N39.3 ; Bronchitis J40 and Anxiety F41.9 [place] [id number] [place] [address] 68524- 1353 Sep, [facility] [id number] [place] [address] 85632- 3702 Sep, Unspecified episodic mood disorder F39 ; Anxiety disorder, unspecified F41.9 and Unspecified personality disorder F60.9 [place] [id number] [place] [address] 80375- 4797 Aug, Anxiety F41.9 ; Stress incontinence of urine N39.3 and Encounter for immunization Z23 [facility] [id number] [place] [address] 64154- 8807 Aug, Anxiety disorder, unspecified F41.9 [place] [id number] [place] [address] 09562- 0914 Jul, Unspecified episodic mood disorder F39 ; Anxiety disorder, unspecified F41.9 and Unspecified personality disorder F60.9 [place] [id number] [place] [address] 53439- 7888 Jul, [place] [id number] [place] [address] 12141- 7597 Jul, Unspecified episodic mood disorder F39 ; Anxiety disorder, unspecified F41.9 and Unspecified personality disorder F60.9 [place] [id number] [place] [address] 26614- 2490 Jul, Anxiety disorder, unspecified F41.9 [facility] [id number] [place] [address] 66117- 7228 Jun, Unspecified episodic mood disorder F39 ; Anxiety disorder, unspecified F41.9 and Unspecified personality disorder F60.9 [place] [id number] [place] [address] 71302- 7215 Jun, Anxiety disorder, unspecified F41.9 [facility] [id number] [place] [address] 98217- 7852 Jun, Unspecified episodic mood disorder F39 ; Anxiety disorder, unspecified F41.9 and Unspecified personality disorder F60.9 [facility] [id number] [place] [address] 83357- 5502 Jun, [facility] [id number] [place] [address] 95031- 3679 May, Anxiety disorder, unspecified F41.9 [facility] [id number] [place] [address] 63628- 0246 May, Unspecified episodic mood disorder F39 ; Anxiety disorder, unspecified F41.9 and Unspecified personality disorder F60.9 [facility] [id number] [place] [address] 96278- 1833 Apr, Anxiety disorder, unspecified F41.9 [facility] [id number] [place] [address] 73916- 9869 March, Unspecified episodic mood disorder F39 ; Anxiety disorder, unspecified F41.9 and Unspecified personality disorder F60.9 [facility] [id number] [place] [address] 57346- 4205 March, Bronchitis J40 [facility] [id number] [place] [address] 40168- 1041 March, Unspecified episodic mood disorder F39 ; Anxiety disorder, unspecified F41.9 and Unspecified personality disorder F60.9 [facility] [id number] [place] [address] 58987- 4493 Feb, [facility] [id number] [place] [address] 22407- 2871 Feb, Unspecified episodic mood disorder F39 ; Anxiety disorder, unspecified F41.9 and Unspecified personality disorder F60.9 [facility] [address], [place] [address]- 3404 Feb, Bronchitis J40 [facility] [id number] [place] [address] 66631- 3530 Feb, Unspecified episodic mood disorder F39 ; Anxiety disorder, unspecified F41.9 and Unspecified personality disorder F60.9 [facility] [address], [place] [address]- 2556 Jan, Unspecified episodic mood disorder F39 ; Anxiety disorder, unspecified F41.9 and Unspecified personality disorder F60.9 [facility] [id number] [place] [address] 16635- 3010 Jan, Bronchitis J40 [facility] [id number] [place] [address] 38144- 4023 Jan, Unspecified episodic mood disorder F39 ; Anxiety disorder, unspecified F41.9 and Unspecified personality disorder F60.9 [facility] [address], [place] [address]- 3361 Dec, Anxiety F41.9 [facility] [id number] [place] [address] 60881- 6520 Dec, Unspecified episodic mood disorder F39 ; Anxiety disorder, unspecified F41.9 and Unspecified personality disorder F60.9 [facility] [id number] [address] Dec, [facility] [address], [place] [address]- 1611 Dec, Unspecified episodic mood disorder F39 ; Anxiety disorder, unspecified F41.9 and Unspecified personality disorder F60.9 [facility] [address], [place] [address]- 5190 Nov, [facility] [id number] [place] [address] 17423- 6185 Oct, Unspecified episodic mood disorder F39 ; Anxiety disorder, unspecified F41.9 and Unspecified personality disorder F60.9 [facility] [address], [place] [address]- 0898 Oct, [facility] [address], [place] [address]98 Oct, Acute upper respiratory infection, unspecified J06.9 ; Other viral agents as the cause of diseases classified elsewhere B97.89 and Cough R05 [facility] [id number] [address]- 1009 Aug, Unspecified episodic mood disorder F39 ; Anxiety disorder, unspecified F41.9 and Unspecified personality disorder F60.9 [facility] [id number] [place] [address] 31951- 3822 Aug, [facility] [id number] [place] [address] 23140- 3490 Aug, [facility] [id number] [place] [address] 63624- 0450 Aug, [facility] [id number] [place] [address] 97317- 2341 Aug, Visit for TB skin test Z11.1 [facility] [id number] [place] [address] 44113- 4626 Jul, [facility] [id number] [place] [address] 07725- 4313 Jul, [facility] [address], [place] [address]- 1533 Jul, [facility] [id number] [place] [address] 95742- 0117 Jul, [facility] [address], [place] [address]- 5232 Jul, [facility] [id number] [place] [address] 57587- 1255 Jul, Unspecified episodic mood disorder F39 ; Anxiety disorder, unspecified F41.9 and Unspecified personality disorder F60.9 [facility] [address], [place] [address]- 7274 Jun, [facility] [address], [place] [address]- 4827 Jun, Unspecified episodic mood disorder F39 ; Anxiety disorder, unspecified F41.9 and Unspecified personality disorder F60.9 [facility] [address], [place] [address]- 0882 Jun, [facility] [id number] [place] [address] 45657- 6709 May, Unspecified episodic mood disorder F39 ; Anxiety disorder, unspecified F41.9 and Unspecified personality disorder F60.9 [facility] [id number] [place] [address] 35694- 9115 May, [facility] [id number] [place] [address] 99699- 3784 May, [facility] [id number] [place] [address] 60072- 4919 May, Edema, unspecified R60.9 [facility] [id number] [place] [address] 92665- 8893 Apr, [facility] [id number] [place] [address] 71923- 7823 Apr, Unspecified episodic mood disorder F39 ; Anxiety disorder, unspecified F41.9 and Unspecified personality disorder F60.9 [facility] [address], [place] [address]- 9958 Apr, Anxiety F41.9 [facility] [id number] [place] [address] 19154- 1095 March, Unspecified episodic mood disorder F39 ; Anxiety disorder, unspecified F41.9 and Unspecified personality disorder F60.9 [facility] [address], [place] [address]- 0654 March, Unspecified episodic mood disorder F39 ; Anxiety disorder, unspecified F41.9 and Unspecified personality disorder F60.9 [facility] [id number] [address]- 8842 Feb, Anxiety F41.9 [facility] [id number] [place] [address] 49984- 4553 Feb, Unspecified episodic mood disorder F39 ; Anxiety disorder, unspecified F41.9 and Unspecified personality disorder F60.9 [facility] [id number] [place] [address] 88932- 1669 Jan, Unspecified episodic mood disorder F39 ; Anxiety disorder, unspecified F41.9 and Unspecified personality disorder F60.9 [facility] [id number] [place] [address] 57619- 1029 Jan, Unspecified episodic mood disorder F39 ; Anxiety disorder, unspecified F41.9 and Unspecified personality disorder F60.9 [facility] [id number] [place] [address] 39087- 4413 Jan, Edema, unspecified R60.9 [facility] [id number] [place] [address] 89021- 1568 Dec, [facility] [id number] [place] [address] 41568- 3777 Dec, [facility] [id number] [place] [address] 41553- 9466 Dec, [facility] [id number] [place] [address] 88588- 6486 Dec, Unspecified episodic mood disorder F39 ; Anxiety disorder, unspecified F41.9 and Unspecified personality disorder F60.9 [facility] [id number] [place] [address] 98353- 8534 Nov, [facility] [id number] [place] [address] 22606- 9951 Nov, Unspecified episodic mood disorder F39 ; Anxiety disorder, unspecified F41.9 and Unspecified personality disorder F60.9 [facility] [id number] [address]- 9048 Oct, Unspecified episodic mood disorder F39 ; Anxiety disorder, unspecified F41.9 and Unspecified personality disorder F60.9 [place] [id number] [place] [address] 69262- 5894 Oct, Unspecified episodic mood disorder F39 ; Anxiety disorder, unspecified F41.9 and Unspecified personality disorder F60.9 [place] [id number] [place] [address] 99365- 6818 Sep, Unspecified episodic mood disorder F39 ; Anxiety disorder, unspecified F41.9 and Unspecified personality disorder F60.9 [place] [id number] [place] [address] 57006- 3646 Sep, Encounter for immunization Z23 [place] [id number] [place] [address] 43132- 0544 Sep, Edema of left lower extremity R60.0 [facility] [id number] [place] [address] 71527- 6305 Aug, Unspecified episodic mood disorder F39 ; Anxiety disorder, unspecified F41.9 and Unspecified personality disorder F60.9 [place] [id number] [place] [address] 16611- 2076 Aug, [place] [id number] [place] [address] 72237- 7721 Aug, Edema of left lower extremity R60.0 [facility] [id number] [place] [address] 44920- 8715 Aug, [facility] [id number] [place] [address] 60866- 1130 Aug, Unspecified episodic mood disorder F39 ; Anxiety disorder, unspecified F41.9 and Unspecified personality disorder F60.9 [facility] [address] [place] [address] 12673- 6901 Jul, Unspecified episodic mood disorder 296.90 ; Anxiety disorder , unspecified 300.00 and Unspecified personality disorder 301.9 [facility] [address], [place] [address]- 6403 Jul, Unspecified episodic mood disorder 296.90 ; Anxiety disorder , unspecified 300.00 and Unspecified personality disorder 301.9 [facility] [id number] [address]- 6824 Jul, [facility] [id number] [place] [address] 40211- 7680 Jun, Unspecified episodic mood disorder 296.90 ; Anxiety disorder , unspecified 300.00 and Unspecified personality disorder 301.9 [facility] [id number] [place] [address] 74333- 2266 May, Unspecified episodic mood disorder 296.90 ; Anxiety disorder , unspecified 300.00 and Unspecified personality disorder 301.9 [facility] [id number] [place] [address] 53541- 2115 May, Anxiety disorder, unspecified 300.00 [facility] [id number] [place] [address] 64673- 8709 May, Anxiety disorder, unspecified 300.00 and Edema 782.3 [facility] [address] [place] [address] 78524- 8916 May, Unspecified episodic mood disorder 296.90 ; Anxiety disorder , unspecified 300.00 and Unspecified personality disorder 301.9 [facility] [address], [place] [address]- 8751 Apr, [facility] [id number] [place] [address] 10889- 9279 Apr, Unspecified episodic mood disorder 296.90 ; Anxiety disorder , unspecified 300.00 and Personality disorder, unspecified 301.9 [facility] [address], [place] [address]- 6232 Apr, Unspecified episodic mood disorder 296.90 ; Anxiety disorder , unspecified 300.00 and Unspecified personality disorder 301.9 [facility] [id number] 1434 March, [facility] [address], [place] [address]- 7266 March, Unspecified episodic mood disorder 296.90 ; Anxiety disorder , unspecified 300.00 and Unspecified personality disorder 301.9 [facility] [address], [place] [address]- 8171 March, Unspecified episodic mood disorder 296.90 ; Anxiety disorder 300.00 and Unspecified personality disorder 301.9 [facility] [address], [place] [address]- 9836 March, [facility] [address], [place] [address]- 0876 March, [facility] [address], [place] [address]- 1731 Feb, [facility] [address], [place] [address]- 7098 Feb, [facility] [address], [place] [address]- 3872 Feb, [facility] [address], [place] [address]- 5963 Jan, [facility] [address], [place] [address]- 8962 Jan, [facility] [id number], [place] [address]- 7324 Jan, [facility] [address], [place] [address]- 0886 Jan, [facility] [id number], [place] [address]- 2546 Jan, [facility] [id number], [place] [address]- 2331 Jan, [facility] [place] [facility] [address] [id number] [place] [id number] Jan, [facility] [place] [facility] [address] [id number] [place] [address]- 4471 Jan, 2014 [facility] [place] [facility] [address] [id number] [place] [address]- 5769 Jan, 2014 [facility] [place] [facility] [address] [id number] [place] [address]- 2925 Jan, 2014 [facility] [place] [facility] [address] [id number] [place] [address]- 8756 Jan, 2014 [facility] [place] [facility] [address] [id number] [place] [address]- 6571 Jan, 2014 [facility] [place] [facility] [address] [id number] [place] [address]- 1638 Jan, 2014 [facility] [place] [facility] [address] [id number] [address]- 6772 Jan, 2014 [facility] [place] [facility] [address] [id number] [place] [address]- 9359 Jan, [facility] [place] [facility] [address] [id number], [place] [address]- 8341 Jan, [facility] [place] [facility] [address] [id number], [place] [address]- 8405 Dec, 2014 [facility] [place] [facility] [address] [id number], [place] [address]- 1277 Dec, 2014 [facility] [place] [facility] [address] [id number] [place] 1670 Dec, [facility] [place] [facility] [address] [id number], [place] [address]- 0463 Dec, 2014 [facility] [place] [facility] [address] [id number] [place] [address]- 3278 Nov, [facility] [place] [facility] [address] [id number] [place] [address]- 9229 Nov, [facility] [place] [facility] [address] [id number] [place] [address]- 2124 Nov, [facility] [place] [facility] [address] [id number] [place] [address]- 6581 Nov, [facility] [address] [id number] [place] [address]- 7055 15 Oct, 2014 [facility] [place] [facility] [address] [id number] [place] [address] Oct, [facility] [place] [facility] [address] [id number] [place] [address] Oct, [facility] [place] [facility] [address] [id number] [place] [address] Oct, [facility] [place] [facility] [address] [id number] [place] [address] Oct, [facility] [place] [facility] [address] [id number] [place] [address] Oct, [facility] [place] [facility] [address] [id number] [place] [address] Oct, [facility] [place] [facility] [address] [id number] [place] [address] Oct, [facility] [place] [facility] [address] [id number] [place] [address] Oct, [facility] [place] [facility] [address] [id number] [place] [address] Oct, [facility] [place] [facility] [address] [id number] [place] [address] Oct, [facility] [place] [facility] [address] [id number] [place] [address] Oct, [facility] [facility] [address] [id number] [place] [address] Oct, [facility] [place] [facility] [address] [id number] [place] [address] 0449 Oct, [facility] [place] [facility] [address] [id number] [place] [address] 7[address] Oct, [facility] [place] [facility] [address] [id number] [place] [address] 9892 Oct, [facility] [place] [facility] [address] [id number] [place] [address] Sep, [facility] [place] [facility] [address] [id number] [place] [address]- 1441 Sep, [facility] [place] [facility] [address] [id number] [place] [address]- 9546 Sep, [facility] [place] [facility] [address] [id number] [place] [address] 8209 Sep, [facility] [place] [facility] [address] [id number] [place] [address]- 3116 Sep, [facility] [place] [facility] [address] [id number] [place] [address]- 8962 Sep, [facility] [place] [facility] [address] [id number] [place] [address]- 1552 Sep, [facility] [place] [facility] [address] [id number] [place] [address]- 3549 Sep, [facility] [place] [facility] [address] [id number] [place] [address]- 8448 Sep, [facility] [place] [facility] [address] [id number] [place] [address]- 0391 Sep, [facility] [place] [facility] [address] [id number] [place] [address]- 5350 Aug, [facility] [place] [facility] [address] [id number] [place] [address]- 7864 Aug, [facility] [place] [facility] [address] [id number] [place] [address]- 9442 14 Aug, 2014 [facility] [place] [facility] [address] [id number] [place] [address]- 8307 14 Aug, 2014 [facility] [place] [facility] [address] [id number] [place] [address]- 0397 Aug, [facility] [place] [facility] [address] [id number] [place] [address]- 6596 Aug, [facility] [place] [facility] [address] [id number] [place] [address]- 6028 Aug, [facility] [place] [facility] [address] [id number] [place] [address]- 7962 Aug, [facility] [place] [facility] [address] [id number] [place] [address]- 3120 Jul, [facility] [place] [address] [id number] [place] [address]- 0822 Jul, [facility] [place] [facility] [address] [id number] [place] [address]- 6025 Jul, [facility] [place] [facility] [address] [id number] [place] [address]- 7240 05 Jul, 2014 [facility] [place] [facility] [address] [id number] [place] [address]- 2178 Jul, [facility] [place] [facility] [address] [id number] [place] [address]- 4218 Jul, [facility] [address] [id number] [place] [address]- 7741 Jun, [facility] [address] [id number] [place] [address]- 6272 Jun, [facility] [place] [facility] [address] [id number] [place] [address]- 5999 May, [facility] [address] [id number] [place] [address]- 2538 May, [facility] [address] [id number] [place] [address]- 8145 May, [facility] [address] [id number] [place] [address]- 4587 May, [facility] [address] [id number] [place] [address]- 0855 May, [facility] [address] [id number] [place] [address]- 1963 May, [facility] [address] [id number] [place] [address]- 4318 May, [facility] [address] [id number] [place] [address]- 9803 May, [facility] [address] [id number] [place] [address]- 9831 Apr, [facility] [address] [id number] [place] [address]- 4221 Apr, [facility] [address] [id number] [place] [address] 8798 March, [facility] [address] [id number] [place] [address]- 5340 March, [facility] [address] [id number] [place] [address]- 6871 Feb, [facility] [address] [id number] [place] [address]- 4582 Feb, [facility] [address] [id number] [place] [address]- 1726 Feb, [facility] [address] [id number] [place] [address]- 1648 Feb, [facility] [address] [id number] [place] [address]- 2211 Feb, [facility] [address] [id number] [place] [address]- 4029 Feb, [facility] [address] [id number] [place] [address]- 1928 Feb, [facility] [address] [id number] [place] [address]- 1606 Feb, [facility] [address] [id number] [place] [address]- 3638 Feb, [facility] [address] [id number] [place] [address]- 3256 Feb, [facility] [address] [id number] [place] [address]- 1431 Jan, [facility] [address] [id number] [place] [address]- 7568 Jan, [facility] [address] [id number] [place] [address]- 2476 Jan, [facility] [address] [id number] [place] [address]- 4273 Jan, [facility] [address] [id number] [place] [address]- 2305 Jan, [facility] [address] [id number] [place] [address]- 9449 Dec, [facility] [address] [id number] [place] [address]- 5354 Dec, [facility] [address] [id number] [place] [address]- 6854 Dec, [facility] [address] [id number] [place] [address]- 4966 Dec, [facility] [address] [id number] [place] [address]- 8836 Dec, [facility] [address] [id number] [place] [address]- 4158 Dec, [facility] [address] [id number] [place] [address]- 6029 Nov, [facility] [address] [id number] [place] [address]- 9192 Nov, [facility] [address] [id number] [place] [address]- 4997 Nov, [facility] [address] [id number] [place] [address]- 6758 Nov, [facility] [address] [id number] [place] [address]- 4813 Nov, [facility] [address] [id number] [place] [address]- 6898 Nov, [facility] [address] [id number] [place] [address]- 5825 Nov, [facility] [address] [id number] [place] [address]- 8092 Nov, [facility] [address] [id number] [place] [address]- 4099 Oct, [facility] [address] [id number] [place] [address]- 5109 Oct, [facility] [address] [id number] [place] [address]- 4954 Oct, [facility] [address] [id number] [place] [address]- 1491 Oct, [facility] [address] [id number] [place] [address]- 7858 Oct, [facility] [address] [id number] [place] [address]- 4107 Oct, [facility] [address] [id number] [place] [address]- 5532 Oct, [facility] [address] [id number] [place] [address]- 6000 Oct, [facility] [address] [id number] [place] [address]- 4831 Sep, [facility] [address] [id number] [place] [address] Sep, [facility] [address] [id number] [place] [address]- 7624 Sep, [facility] [address] [id number] [place] [address]- 1748 Sep, [facility] [address] [id number] [place] [address]- 0003 Sep, [facility] [address] [id number] [place] [address]- 2861 Sep, [facility] [address] [id number] [place] [address]- 0046 Sep, [facility] [address] [id number] [place] [address]- 3470 Sep, [facility] [address] [id number] [place] [address]- 8225 Aug, [facility] [address] [id number] [place] [address]- 0520 Aug, [facility] [address] [id number] [place] [address]- 0675 Aug, [facility] [address] [id number], [place] [address]- 2236 Jul, [facility] [address] [id number] [place] [address]- 4370 Jun, [facility] [address] [id number] [place] [address]- 9365 Jun, [facility] [address] [id number] [place] [address]- 6926 Jun, [facility] [address] [id number], [place] [address]- 2717 Jun, [facility] [address] [id number] [place] [address]- 2183 Jun, [facility] [address] [id number] [place] [address]- 4935 May, [facility] [address] [id number] [place] [address]- 1584 May, [facility] [address] [id number] [place] [address]- 1472 Apr, [facility] [address] [id number] [place] [address]- 2903 Apr, [facility] [address] [id number] [place] [address]- 9739 March, [facility] [address] [id number] [place] [address]- 5421 March, [facility] [address] [id number] [place] [address]- 9418 March, [facility] [address] [id number] [place] [address]- 8843 March, [facility] [address] [id number] [place] [address]- 4609 March, [facility] [address] [id number] [place] [address]- 6805 Feb, [facility] [address] [id number] [place] [address]- 2206 Feb, [facility] [address] [id number] [place] [address]- 7027 Feb, [facility] [address] [id number] [place] [address]- 2366 Jan, [facility] [address] [id number] [place] [address]- 3489 Dec, [facility] [address] [id number] [place] [address]- 0144 27 Dec, 2012 [facility] [address] [id number] [place] [address]- 2876 18 Dec, 2012 [facility] [address] [id number] [place] [address]- 2546 Dec, [facility] [address] [id number] [place] [address]- 4620 Nov, [facility] [address] [id number] [place] [address]- 4857 Nov, [facility] [address] [id number] [place] [address]- 0608 Nov, [facility] [address] [id number] [place] [address]- 6510 Nov, [facility] [address] [id number] [place] [address]- 1710 Oct, [facility] [address] [id number] [place] [address]- 5041 Oct, [facility] [address] [id number] [place] [address]- 4541 Oct, [facility] [address] [id number] [place] [address]- 5445 Oct, [facility] [address] [id number] [place] [address]- 1657 14 Sep, 2012 [facility] [address] [id number] [place] [address]- 0318 14 Sep, 2012 [facility] [address] [id number] [place] [address]- 5040 13 Sep, 2012 [facility] [address] [id number] [place] [address]- 1953 13 Sep, 2012 [facility] [address] [id number] [place] [address]- 3438 Sep, [facility] [address] [id number] [place] [address] 2546 Sep, [facility] [place] [address] [id number] [place] [address]- 2546 Aug, [facility] [place] [facility] [address] [id number] [place] [address]- 2546 Aug, [facility] [place] [address] [id number] [place] [address]- 2546 Aug, [facility] [place] [address] [id number] [place] [address] 2546 Jul, [facility] [place] [address] [id number] [place] [address] 2546 Jul, [facility] [place] [facility] [address] [id number] [place] [address]- 2546 Jun, [facility] [place] [address] [id number] [place] [address]- 9196 May, [facility] [place] [facility] [address] [id number] [place] [address]- 1335 May, [facility] [place] [facility] [address] [id number] [place] [address] 2546 Apr, [facility] [facility] [address] [id number], [place] [address]- 2546 Apr, [facility] [address] [id number], [place] [address]- 2546 March, [facility] [address] [id number] [place] [address]- 2546 March, [facility] [place] [facility] [address] [id number] [place] [address]- 2546 Feb, [facility] [place] [facility] [address] [id number] [place] [address]- 2546 Feb, [facility] [place] [facility] [address] [id number] [place] [address]- 2511 09 Feb, 2012 [facility] [place] [facility] [address] [id number] [place] [address]- 9453 Feb, [facility] [place] [facility] [address] [id number] [place] [address]- 5006 15 Jan, 2012 [facility] [place] [facility] [address] [id number] [place] [address]- 9236 Jan, [facility] [place] [facility] [address] [id number] [place] [address]- 7398 29 Dec, 2011 [facility] [place] [facility] [address] [id number] [place] [address]- 6186 28 Dec, 2011 [facility] [place] [facility] [address] [facility] [id number] [place] [address]- 9656 26 Dec, 2011 [facility] [place] [facility] [address] [facility] [id number] [place] [address]- 2746 23 Dec, 2011 [facility] [place] [facility] [address] [id number] [place] [address]- 4427 Dec, [facility] [place] [facility] [address] [facility] [id number] [place] [address]- 4013 15 Dec, 2011 [facility] [place] [facility] [address] [facility] [id number] [place] [address]- 6447 Dec, [facility] [place] [facility] [address] [facility] [id number] [place] [address]- 7442 Dec, [facility] [place] [facility] [address] [facility] [id number] [place] [address]- 0505 08 Dec, 2011 [facility] [place] [facility] [address] [facility] [id number] [place] [address]- 2397 07 Dec, 2011 [facility] [place] [facility] [address] [facility] [id number] [place] [address]- 7511 02 Dec, 2011 [facility] [place] [facility] [address] [facility] [id number], [place] [address]- 6975 Dec, [facility] [address] [id number] [place] [address]- 5364 Dec, [facility] [place] [facility] [address] [id number] [place] [address]- 1984 Nov, [facility] [address] [id number] [place] [address]- 1501 Nov, [facility] [place] [facility] [address] [id number] [place] [address]- 7009 Nov, [facility] [address] [id number] [place] [address]- 6931 Nov, [facility] [address] [id number] [place] [address]- 4968 Nov, [facility] [address] [facility] [id number] [place] [address]- 1191 Nov, [facility] [place] [facility] [address] [id number] [place] [address]- 1614 Oct, [facility] [address] [id number] [place] [address]- 0749 Oct, [facility] [place] [facility] [address] [facility] [id number] [place] [address]- 9433 Sep, [facility] [place] [facility] [address] [id number] [place] [address]- 2609 Sep, [facility] [place] [facility] [address] [id number] [place] [address]- 6535 Sep, [facility] [place] [facility] [address] [id number] [place] [address]- 9975 Sep, [facility] [place] [facility] [address] [facility] [id number] [place] [address]- 8227 Sep, [facility] [place] [facility] [address] [facility] [id number] [place] [address]- 5074 March, [facility] [place] [facility] [address] [facility] [id number], [place] [address]- 2177 Oct, [facility] [address] [facility] [id number], [place] [address]- 0613 Oct, [facility] [address] [facility] [id number], [place] [address]- 6500 Oct, [facility] [address] [facility] [id number], [place] [address]- 3705 Sep, [facility] [address] [facility] [id number], [place] [address]- 2984 Sep, [facility] [address] [facility] [id number], [place] [address]- 9714 Sep, [facility] [address] [facility] [id number], [place] [address]- 1063 Sep, [facility] [id number], [place] [address]- 3678 Aug, [facility] [address] [id number], [place] [address]- 6068 Oct, [facility] [id number], [place] [address]- 9770 Oct, [facility] [address] [id number], [place] [address]- 5862 May, IMMUNIZATIONS No Known Immunizations SOCIAL HISTORY Never Assessed REASON FOR VISIT f/u PLAN OF CARE Activity Details Follow Up Next available Reason: F/U VITAL SIGNS MEDICATIONS Unknown Medications RESULTS No Results PROCEDURES Procedure Date Ordered Result Body Site Psychotherapy, patient &/family, 45 minutes, established patient Oct 26, 2017 INSTRUCTIONS MEDICATIONS ADMINISTERED No Known Medications MEDICAL (GENERAL) HISTORY Type Description Date Medical History hypertension Medical History panic attacks Surgical History cholecystectomy 2009 Hospitalization History surgery
--- OUTSIDE RECORDS SUMMARY | 2018-12-11 10:43 | XMS REPORT ---
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
--- OUTSIDE RECORDS SUMMARY | 2018-12-11 10:44 | XMS REPORT ---
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 Name Role Phone LEIDA ANDINO Unavailable PROBLEMS Type Condition ICD9-CM Code JLG07-MS Code Onset Dates Condition Status SNOMED Code Problem Stress incontinence of urine N39.3 Active 67410027 Problem Anxiety F41.9 Active 56478230 Problem Anxiety disorder, unspecified F41.9 Active 622989583 Problem Unspecified episodic mood disorder F39 Active 259397544 Problem Unspecified personality disorder F60.9 Active 97392047 ALLERGIES No Information ENCOUNTERS Encounter Location Date Diagnosis [place] [id number] [place] [address] 28136- 4165 March, [place] [id number] [place] [address] 42732- 4585 Feb, Unspecified episodic mood disorder F39 ; Anxiety disorder, unspecified F41.9 and Unspecified personality disorder F60.9 [place] [id number] [place] [address] 70740- 6185 Feb, Unspecified episodic mood disorder F39 ; Anxiety disorder, unspecified F41.9 and Unspecified personality disorder F60.9 [place] [id number] [place] [address] 20264- 5173 Feb, Anxiety disorder, unspecified F41.9 [place] [id number] [place] [address] 52660- 8422 15 Jan, 2018 Unspecified episodic mood disorder F39 ; Anxiety disorder, unspecified F41.9 and Unspecified personality disorder F60.9 [place] [id number] [place] [address] 21387- 8162 Jan, Anxiety F41.9 [place] [address] [address] 1446 Jan, Anxiety disorder, unspecified F41.9 [facility] [id number] [place] [address] 73300- 4507 Dec, Unspecified episodic mood disorder F39 ; Anxiety disorder, unspecified F41.9 and Unspecified personality disorder F60.9 [facility] [id number] [place] [address] 40819- 6340 Dec, Anxiety F41.9 [facility] [id number] [place] [address] 27333- 7038 Dec, Anxiety disorder, unspecified F41.9 [facility] [id number] [place] [address] 62325- 5092 Dec, Unspecified episodic mood disorder F39 ; Anxiety disorder, unspecified F41.9 and Unspecified personality disorder F60.9 [facility] [id number] [place] [address] 76724- 2585 Nov, [facility] [id number] [place] [address] 72555- 7461 Nov, [facility] [id number] [place] [address] 40491- 2656 Nov, Unspecified episodic mood disorder F39 ; Anxiety disorder, unspecified F41.9 and Unspecified personality disorder F60.9 [facility] [address] [address]- 3105 Nov, Anxiety disorder, unspecified F41.9 [facility] [address] [place] [address] 63772- 0047 Oct, Unspecified episodic mood disorder F39 ; Anxiety disorder, unspecified F41.9 and Unspecified personality disorder F60.9 [facility] [address] [address]- 9495 Oct, Vaginal yeast infection B37.3 [facility] [id number] [address] 19 Oct, 2017 [place] [id number] [place] [address] 02408- 1774 Oct, Anxiety disorder, unspecified F41.9 [place] [id number] [place] [address] 93252- 7268 Oct, Routine gynecological examination Z01.419 ; Screening for breast cancer Z12.31 and Vaginal yeast infection B37.3 [place] [id number] [place] [address] 01509- 6523 Sep, Unspecified episodic mood disorder F39 ; Anxiety disorder, unspecified F41.9 and Unspecified personality disorder F60.9 [place] [id number] [place] [address] 29332- 3491 Sep, [place] [address] 15003- 0418 Sep, Anxiety disorder, unspecified F41.9 [place] [id number] [place] [address] 51038- 5777 Sep, Bronchitis J40 and Stress incontinence of urine N39.3 [place] [id number] [place] [address] 98799- 7805 Sep, Stress incontinence of urine N39.3 ; Bronchitis J40 and Anxiety F41.9 [place] [id number] [place] [address] 30093- 6394 Sep, [place] [id number] [place] [address] 29677- 3646 Sep, Unspecified episodic mood disorder F39 ; Anxiety disorder, unspecified F41.9 and Unspecified personality disorder F60.9 [place] [id number] [place] [address] 42759- 8901 Aug, Anxiety F41.9 ; Stress incontinence of urine N39.3 and Encounter for immunization Z23 [place] [id number] [address] 7770 Aug, Anxiety disorder, unspecified F41.9 [facility] [address] [place] [address] 21784- 3817 Jul, Unspecified episodic mood disorder F39 ; Anxiety disorder, unspecified F41.9 and Unspecified personality disorder F60.9 [facility] [id number] [place] [address] 67136- 8867 Jul, [facility] [id number] [place] [address] 20287- 6839 Jul, Unspecified episodic mood disorder F39 ; Anxiety disorder, unspecified F41.9 and Unspecified personality disorder F60.9 [place] [address] [place] [address] 53409- 3143 Jul, Anxiety disorder, unspecified F41.9 [place] [id number] [place] [address] 98805- 8914 Jun, Unspecified episodic mood disorder F39 ; Anxiety disorder, unspecified F41.9 and Unspecified personality disorder F60.9 [place] [address] [place] [address] 30245- 3132 Jun, Anxiety disorder, unspecified F41.9 [facility] [address] [address]- 2855 Jun, Unspecified episodic mood disorder F39 ; Anxiety disorder, unspecified F41.9 and Unspecified personality disorder F60.9 [facility] [address] [address]- 8004 Jun, [facility] [id number] [place] [address] 33440- 0703 May, Anxiety disorder, unspecified F41.9 [facility] [address], [place] [address]- 4467 May, Unspecified episodic mood disorder F39 ; Anxiety disorder, unspecified F41.9 and Unspecified personality disorder F60.9 [facility] [address] [address]- 2762 Apr, Anxiety disorder, unspecified F41.9 [facility] [id number] [place] [address] 23044- 8786 March, Unspecified episodic mood disorder F39 ; Anxiety disorder, unspecified F41.9 and Unspecified personality disorder F60.9 [facility] [id number] [place] [address] 31181- 9550 March, Bronchitis J40 [facility] [id number] [place] [address] 31445- 1643 March, Unspecified episodic mood disorder F39 ; Anxiety disorder, unspecified F41.9 and Unspecified personality disorder F60.9 [facility] [id number] [place] [address] 69286- 3333 Feb, [facility] [id number] [place] [address] 40254- 9262 Feb, Unspecified episodic mood disorder F39 ; Anxiety disorder, unspecified F41.9 and Unspecified personality disorder F60.9 [facility] [id number] [place] [address] 89793- 2384 Feb, Bronchitis J40 [facility] [address] [place] [address] 05680- 3231 Feb, Unspecified episodic mood disorder F39 ; Anxiety disorder, unspecified F41.9 and Unspecified personality disorder F60.9 [facility] [address] [place] [address] 38764- 5187 Jan, Unspecified episodic mood disorder F39 ; Anxiety disorder, unspecified F41.9 and Unspecified personality disorder F60.9 [facility] [address] [place] [address] 89996- 3309 Jan, Bronchitis J40 [facility] [id number] [place] [address] 86387- 7008 Jan, Unspecified episodic mood disorder F39 ; Anxiety disorder, unspecified F41.9 and Unspecified personality disorder F60.9 [facility] [address] [place] [address] 34499- 6400 Dec, Anxiety F41.9 [facility] [address] [address]- 2326 Dec, Unspecified episodic mood disorder F39 ; Anxiety disorder, unspecified F41.9 and Unspecified personality disorder F60.9 [facility] [id number] [address] Dec, [facility] [id number] [place] [address] 02193- 0707 Dec, Unspecified episodic mood disorder F39 ; Anxiety disorder, unspecified F41.9 and Unspecified personality disorder F60.9 [facility] [address] [place] [address] 74023- 8749 Nov, [facility] [address] [place] [address] 05553- 7392 Oct, Unspecified episodic mood disorder F39 ; Anxiety disorder, unspecified F41.9 and Unspecified personality disorder F60.9 [facility] [address] [address]- 8757 Oct, [facility] [address] [address] Oct, Acute upper respiratory infection, unspecified J06.9 ; Other viral agents as the cause of diseases classified elsewhere B97.89 and Cough R05 [facility] [address] [place] [address] 32196- 4080 Aug, Unspecified episodic mood disorder F39 ; Anxiety disorder, unspecified F41.9 and Unspecified personality disorder F60.9 [facility] [address] [address]- 7914 Aug, [facility] [address] [address]- 3782 Aug, [facility] [address] [address]- 6510 Aug, [facility] [address], [place] [address]- 4747 Aug, Visit for TB skin test Z11.1 [facility] [address] [address]- 8129 Jul, [facility] [id number] [address]- 7695 Jul, [facility] [address], [place] [address]- 2052 Jul, [facility] [address], [place] [address]- 4319 Jul, [facility] [address], [place] [address]- 7864 Jul, [facility] [address], [place] [address]- 0722 Jul, Unspecified episodic mood disorder F39 ; Anxiety disorder, unspecified F41.9 and Unspecified personality disorder F60.9 [facility] [address] [address]- 5355 Jun, [facility] [address], [place] [address]- 3578 Jun, Unspecified episodic mood disorder F39 ; Anxiety disorder, unspecified F41.9 and Unspecified personality disorder F60.9 [facility] [address] [address]- 4359 Jun, [facility] [id number] [address]- 7819 May, Unspecified episodic mood disorder F39 ; Anxiety disorder, unspecified F41.9 and Unspecified personality disorder F60.9 [facility] [address], [place] [address]- 4185 May, [facility] [address], [place] [address]- 1661 May, [facility] [address], [place] [address]- 7228 May, Edema, unspecified R60.9 [facility] [id number] [place] [address] 61980- 0370 Apr, [facility] [address] [place] [address] 08233- 0131 Apr, Unspecified episodic mood disorder F39 ; Anxiety disorder, unspecified F41.9 and Unspecified personality disorder F60.9 [place] [address], [place] [address]- 0054 Apr, Anxiety F41.9 [facility] [address] [place] [address] 35749- 1951 March, Unspecified episodic mood disorder F39 ; Anxiety disorder, unspecified F41.9 and Unspecified personality disorder F60.9 [facility] [address] [place] [address] 63177- 6608 March, Unspecified episodic mood disorder F39 ; Anxiety disorder, unspecified F41.9 and Unspecified personality disorder F60.9 [facility] [address], [place] [address]- 6626 Feb, Anxiety F41.9 [facility] [address], [place] [address]- 7474 Feb, Unspecified episodic mood disorder F39 ; Anxiety disorder, unspecified F41.9 and Unspecified personality disorder F60.9 [facility] [id number] [address]- 8447 Jan, Unspecified episodic mood disorder F39 ; Anxiety disorder, unspecified F41.9 and Unspecified personality disorder F60.9 [place] [address] [address]- 5525 Jan, Unspecified episodic mood disorder F39 ; Anxiety disorder, unspecified F41.9 and Unspecified personality disorder F60.9 [facility] [address], [place] [address]- 8917 Jan, Edema, unspecified R60.9 [facility] [address] [place] [address] 87967- 4606 Dec, [facility] [address] [place] [address] 74512- 8552 Dec, [facility] [id number] [place] [address] 98476- 8348 Dec, [facility] [address] [place] [address] 96396- 0781 Dec, Unspecified episodic mood disorder F39 ; Anxiety disorder, unspecified F41.9 and Unspecified personality disorder F60.9 [facility] [address], [place] [address]- 3607 Nov, [facility] [address] [place] [address] 98492- 9529 Nov, Unspecified episodic mood disorder F39 ; Anxiety disorder, unspecified F41.9 and Unspecified personality disorder F60.9 [facility] [address], [place] [address]- 2145 Oct, Unspecified episodic mood disorder F39 ; Anxiety disorder, unspecified F41.9 and Unspecified personality disorder F60.9 [facility] [address] [address]- 7214 Oct, Unspecified episodic mood disorder F39 ; Anxiety disorder, unspecified F41.9 and Unspecified personality disorder F60.9 [facility] [id number] [address]- 3137 Sep, Unspecified episodic mood disorder F39 ; Anxiety disorder, unspecified F41.9 and Unspecified personality disorder F60.9 [facility] [address], [place] [address]- 0796 Sep, Encounter for immunization Z23 [facility] [id number] [place] [address] 50232- 7849 Sep, Edema of left lower extremity R60.0 [facility] [id number] [place] [address] 35125- 8872 Aug, Unspecified episodic mood disorder F39 ; Anxiety disorder, unspecified F41.9 and Unspecified personality disorder F60.9 [facility] [id number] [place] [address] 72789- 2942 Aug, [facility] [id number] [place] [address] 02055- 4030 Aug, Edema of left lower extremity R60.0 [facility] [id number] [place] [address] 84211- 2247 Aug, [facility] [id number] [place] [address] 20006- 5762 Aug, Unspecified episodic mood disorder F39 ; Anxiety disorder, unspecified F41.9 and Unspecified personality disorder F60.9 [facility] [address], [place] [address]- 8145 Jul, Unspecified episodic mood disorder 296.90 ; Anxiety disorder , unspecified 300.00 and Unspecified personality disorder 301.9 [facility] [address] [place] [address] 72808- 0351 Jul, Unspecified episodic mood disorder 296.90 ; Anxiety disorder , unspecified 300.00 and Unspecified personality disorder 301.9 [facility] [address] [place] [address] 73430- 2499 Jul, [facility] [address] [place] [address] 43145- 5811 Jun, Unspecified episodic mood disorder 296.90 ; Anxiety disorder , unspecified 300.00 and Unspecified personality disorder 301.9 [facility] [address] [address]- 0366 May, Unspecified episodic mood disorder 296.90 ; Anxiety disorder , unspecified 300.00 and Unspecified personality disorder 301.9 [facility] [address] [address]- 0749 May, Anxiety disorder, unspecified 300.00 [facility] [id number] [place] [address] 98524- 4554 May, Anxiety disorder, unspecified 300.00 and Edema 782.3 [facility] [id number] [place] [address] 41805- 2317 May, Unspecified episodic mood disorder 296.90 ; Anxiety disorder , unspecified 300.00 and Unspecified personality disorder 301.9 [facility] [id number] [place] [address] 56604- 1684 Apr, [facility] [address] [place] [address] 67548- 4596 Apr, Unspecified episodic mood disorder 296.90 ; Anxiety disorder , unspecified 300.00 and Personality disorder, unspecified 301.9 [facility] [address] [address]- 3272 Apr, Unspecified episodic mood disorder 296.90 ; Anxiety disorder , unspecified 300.00 and Unspecified personality disorder 301.9 [facility] [address], [place] [address]- 5449 March, [facility] [address] [place] [address] 68288- 5828 March, Unspecified episodic mood disorder 296.90 ; Anxiety disorder , unspecified 300.00 and Unspecified personality disorder 301.9 [facility] [address] [address]- 2590 March, Unspecified episodic mood disorder 296.90 ; Anxiety disorder 300.00 and Unspecified personality disorder 301.9 [facility] [address] [facility] [id number] [place] [address]- 9567 March, [facility] [address] [facility] [id number], [place] [address]- 3756 March, [facility] [id number], [place] [address]- 2505 Feb, [facility] [address] [facility] [id number], [place] [address]- 8562 Feb, [facility] [address] [facility] [id number] [place] [address]- 8139 Feb, [facility] [id number], [place] [address]- 0321 Jan, [facility] [id number] [address]- 9648 Jan, [facility] [address] [facility] [id number], [place] [address]- 0342 Jan, [facility] [id number] [address]- 4506 Jan, [facility] [place] [facility] [id number], [place] [address]- 7498 Jan, [facility] [id number], [place] [address]- 6404 Jan, [facility] [place] [facility] [address] [facility] [id number] [address] Jan, [facility] [place] [facility] [address] [facility] [id number], [place] [address]- 4911 Jan, [facility] [place] [facility] [address] [facility] [id number], [place] [address]- 2521 Jan, [facility] [place] [facility] [id number], [place] [address]- 0261 Jan, [facility] [place] [facility] [address] [facility] [id number] [place] [address]- 7082 05 Jan, 2014 [facility] [place] [facility] [address] [id number] [place] [address]- 4923 Jan, 2014 [facility] [place] [facility] [address] [id number] [place] [address]- 1459 Jan, 2014 [facility] [place] [facility] [address] [facility] [id number] [place] [address]- 0621 Jan, 2014 [facility] [place] [facility] [address] [id number] [place] [address]- 3189 Jan, 2014 [facility] [place] [facility] [address] [id number] [place] [address]- 6006 Jan, 2014 [facility] [place] [facility] [address] [id number] [place] [address]- 8583 Dec, 2014 [facility] [place] [facility] [address] [facility] [id number] [place] [address]- 8912 Dec, 2014 [facility] [place] [facility] [address] [facility] [id number] [place] [address]- 2544 Dec, [facility] [place] [facility] [address] [facility] [id number] [place] [address]- 2664 Dec, [facility] [place] [facility] [address] [facility] [id number] [place] [address]- 6174 Nov, [facility] [place] [facility] [address] [facility] [id number] [place] [address]- 6502 Nov, [facility] [place] [facility] [address] [facility] [id number], [place] [address]- 4324 Nov, [facility] [place] [facility] [address] [id number] [place] [address]- 2984 Nov, [facility] [place] [facility] [address] [facility] [id number] [place] [address]- 9658 Oct, [facility] [place] [facility] [address] [facility] [id number] [place] [address]- 3643 Oct, [facility] [place] [facility] [address] [id number] [place] [address]- 6450 Oct, [facility] [place] [facility] [address] [id number] [place] [address]- 2994 Oct, [facility] [place] [facility] [address] [id number] [place] [address]- 4600 Oct, [facility] [place] [facility] [address] [id number] [place] [address] Oct, [facility] [place] [facility] [address] [id number] [place] [address] Oct, [facility] [place] [facility] [address] [id number] [place] [address] Oct, [facility] [place] [facility] [address] [id number] [place] [address] Oct, [facility] [place] [facility] [address] [id number] [place] [address] Oct, [facility] [place] [facility] [address] [id number] [place] [address] Oct, [facility] [place] [facility] [address] [id number] [place] [address] Oct, [facility] [place] [facility] [address] [id number] [place] [address] Oct, [facility] [place] [facility] [address] [id number] [place] [address] Oct, [facility] [place] [facility] [address] [id number] [place] [address] Oct, [facility] [facility] [address] [id number] [place] [address] Oct, [facility] [place] [facility] [address] [id number] [place] [address] Sep, [facility] [place] [facility] [address] [id number], [place] [address] Sep, [facility] [place] [facility] [address] [id number] [place] [address] 379[address] Sep, [facility] [place] [facility] [address] [id number] [place] [address] 4038 Sep, [facility] [place] [facility] [address] [id number] [place] [address] 3149 Sep, [facility] [place] [facility] [address] [id number] [place] [address] 5581 Sep, [facility] [place] [facility] [address] [id number] [place] [address] 9428 Sep, [facility] [place] [facility] [address] [id number] [place] [address] 1351 Sep, [facility] [place] [facility] [address] [id number] [place] [address] 8975 Sep, [facility] [place] [facility] [address] [id number] [place] [address] Sep, [facility] [place] [facility] [address] [id number] [place] [address] 4326 Aug, [facility] [place] [facility] [address] [id number] [place] [address] 7918 30 Aug, 2014 [facility] [place] [facility] [address] [id number], [place] [address] Aug, [facility] [address] [id number], [place] [address] 8[address] 14 Aug, 2014 [facility] [address] [id number], [place] [address] 24[address] Aug, [facility] [address] [id number], [place] [address] 8936 Aug, [facility] [address] [id number] [place] [address]- 5327 Aug, [facility] [place] [facility] [address] [id number] [place] [address]- 9431 Aug, [facility] [place] [facility] [address] [id number] [place] [address] 69[address] Jul, 2013 [facility] [place] [facility] [address] [id number] [place] [address] 6026 Jul, 2013 [facility] [place] [facility] [address] [id number] [place] [address] 9063 Jul, 2013 [facility] [place] [facility] [address] [id number] [place] [address]- 0949 Jul, 2013 [facility] [place] [facility] [address] [id number] [place] [address]- 6692 Jul, 2013 [facility] [place] [facility] [address] [id number] [place] [address]- 3983 Jul, 2013 [facility] [place] [facility] [address] [id number] [place] [address]- 0682 Jun, [facility] [place] [address] [id number] [place] [address] 1128 Jun, [facility] [place] [facility] [address] [id number] [place] [address]- 0631 May, [facility] [address] [id number] [place] [address] 6921 May, [facility] [place] [facility] [address] [id number] [place] [address]- 1568 May, [facility] [place] [facility] [address] [id number] [place] [address]- 5153 May, [facility] [place] [facility] [address] [id number] [place] [address]- 8046 May, [facility] [address] [id number] [place] [address] 6005 May, [facility] [place] [facility] [address] [id number] [place] [address]- 4516 May, [facility] [address] [id number] [place] [address]- 5190 May, [facility] [address] [id number] [place] [address] 6735 Apr, [facility] [place] [address] [id number] [place] [address] 6500 Apr, [facility] [place] [address] [id number] [place] [address]- 3427 March, [facility] [address] [id number] [place] [address] 0929 March, [facility] [place] [address] [id number] [place] [address]- 0626 Feb, [facility] [address] [id number] [place] [address]- 2067 Feb, [facility] [address] [id number] [place] [address]- 4774 Feb, [facility] [address] [id number] [place] [address]- 2580 Feb, [facility] [address] [id number] [place] [address]- 5982 Feb, [facility] [address] [id number] [place] [address]- 6549 Feb, [facility] [address] [id number] [place] [address]- 5664 Feb, [facility] [address] [id number] [place] [address]- 0652 Feb, [facility] [address] [id number] [place] [address]- 1541 Feb, [facility] [address] [id number] [place] [address]- 5322 Feb, [facility] [address] [id number] [place] [address]- 5252 Jan, [facility] [address] [id number] [place] [address]- 9916 Jan, [facility] [address] [id number] [place] [address]- 6515 Jan, [facility] [address] [id number] [place] [address]- 2232 Jan, [facility] [address] [id number] [place] [address]- 7529 Jan, [facility] [address] [id number] [place] [address]- 6460 Dec, [facility] [address] [id number] [place] [address]- 0942 Dec, [facility] [address] [id number] [place] [address]- 6625 Dec, [facility] [address] [id number] [place] [address]- 9322 Dec, [facility] [address] [id number] [place] [address]- 7443 Dec, [facility] [address] [facility] [id number] [place] [address] 7617 Dec, [facility] [address] [id number] [place] [address]- 2115 Nov, [facility] [address] [id number] [place] [address]- 9225 Nov, [facility] [address] [id number] [place] [address]- 8613 Nov, [facility] [address] [id number] [place] [address]- 5537 Nov, [facility] [address] [id number] [place] [address]- 5386 Nov, [facility] [address] [id number] [place] [address]- 8426 Nov, [facility] [address] [id number] [place] [address]- 4475 Nov, [facility] [address] [id number] [place] [address]- 4322 Nov, [facility] [address] [id number] [place] [address]- 3963 Oct, [facility] [address] [id number] [place] [address]- 2517 Oct, [facility] [address] [id number] [place] [address]- 6221 Oct, [facility] [address] [id number] [place] [address]- 3155 Oct, [facility] [address] [id number] [place] [address]- 9375 Oct, [facility] [address] [id number] [place] [address]- 4562 Oct, [facility] [address] [id number], [place] [address]- 4908 Oct, [facility] [address] [id number], [place] [address]- 2755 Oct, [facility] [address] [id number], [place] [address]- 4823 Sep, [facility] [address] [id number] [place] [address]- 5520 Sep, [facility] [address] [id number], [place] [address]- 1020 Sep, [facility] [address] [id number], [place] [address]- 7623 14 Sep, 2013 [facility] [address] [id number], [place] [address]- 9896 07 Sep, 2013 [facility] [address] [id number] [place] [address]- 9815 Sep, [facility] [address] [id number] [place] [address]- 7633 Sep, [facility] [address] [facility] [id number] [place] [address]- 1646 Sep, [facility] [address] [id number] [place] [address]- 2041 Aug, [facility] [address] [id number] [place] [address]- 8811 Aug, [facility] [address] [id number] [place] [address]- 8135 Aug, [facility] [address] [id number] [place] [address]- 2712 Jul, [facility] [address] [id number] [place] [address]- 1212 Jun, [facility] [address] [facility] [id number] [place] [address]- 2975 Jun, [facility] [address] [facility] [id number] [place] [address]- 5501 Jun, [facility] [address] [facility] [id number] [place] [address]- 7291 Jun, [facility] [address] [id number], [place] [address]- 2038 Jun, [facility] [address] [id number] [place] [address]- 5443 May, [facility] [address] [facility] [id number] [place] [address]- 3118 May, [facility] [address] [facility] [id number] [place] [address]- 3450 Apr, [facility] [address] [id number] [place] [address]- 7787 Apr, [facility] [address] [id number] [place] [address]- 3146 March, [facility] [address] [id number] [place] [address]- 1411 March, [facility] [address] [id number] [place] [address]- 0216 March, [facility] [address] [id number] [place] [address]- 8746 March, [facility] [address] [id number] [place] [address]- 1779 March, [facility] [address] [id number] [place] [address]- 9369 Feb, [facility] [address] [id number] [place] [address]- 7101 Feb, [facility] [address] [id number] [place] [address]- 2828 Feb, [facility] [address] [id number] [place] [address]- 6896 Jan, [facility] [address] [id number] [place] [address]- 3963 Dec, [facility] [address] [id number] [place] [address]- 4578 Dec, [facility] [address] [id number] [place] [address]- 6764 Dec, [facility] [address] [id number] [place] [address]- 0642 Dec, [facility] [address] [id number] [place] [address]- 7968 Nov, [facility] [address] [id number] [place] [address]- 1253 Nov, [facility] [facility] [address] [id number] [place] [address]- 8105 Nov, [facility] [address] [id number] [place] [address] Nov, [facility] [address] [id number] [place] [address]- 1303 Oct, [facility] [address] [id number] [place] [address]- 3042 Oct, [facility] [address] [id number] [place] Oct, [facility] [address] [id number] [place] [address]- 4176 Oct, [facility] [address] [id number] [place] [address]- 6261 Sep, [facility] [address] [id number] [place] [address]- 2419 14 Sep, 2012 [facility] [address] [id number] [place] [address]- 2956 Sep, [facility] [address] [id number] [place] [address]- 2644 Sep, [facility] [address] [id number], [place] [address]- 4470 Sep, [facility] [address] [id number], [place] [address]- 5885 Sep, [facility] [address] [id number] [place] [address]- 0846 Aug, [facility] [address] [id number] [place] [address]- 0712 Aug, [facility] [address] [id number] [place] [address]- 4844 Aug, [facility] [address] [id number] [place] [address]- 2546 27 Jul, 2012 [facility] [address] [id number] [place] [address]- 2546 04 Jul, 2012 [facility] [address] [id number] [place] [address]- 2546 Jun, [facility] [address] [id number] [place] [address]- 2546 30 May, 2012 [facility] [address] [id number] [place] [address]- 2546 May, [facility] [address] [id number] [place] [address]- 8026 Apr, [facility] [address] [id number] [place] [address]- 2546 Apr, [facility] [address] [id number] [place] [address]- 2726 March, [facility] [address] [id number] [place] [address]- 7188 March, [facility] [address] [id number] [place] [address]- 1376 Feb, [facility] [address] [id number] [place] [address]- 2546 16 Feb, 2012 [facility] [address] [id number] [place] [address]- 2546 Feb, [facility] [address] [id number] [place] [address]- 2546 Feb, [facility] [address] [id number] [place] [address]- 2546 Jan, [facility] [address] [id number] [place] [address]- 2546 Jan, [facility] [address] [id number] [place] [address]- 4488 Dec, [facility] [address] [id number] [place] [address]- 2603 Dec, [facility] [place] [facility] [address] [id number] [place] [address]- 7746 Dec, [facility] [place] [facility] [address] [facility] [id number] [place] [address]- 4436 Dec, [facility] [place] [facility] [address] [id number] [place] [address]- 4146 20 Dec, 2011 [facility] [place] [facility] [address] [id number] [place] [address]- 1136 15 Dec, 2011 [facility] [place] [facility] [address] [facility] [id number] [place] [address]- 5491 10 Dec, 2011 [facility] [address] [facility] [id number] [place] [address]- 0330 09 Dec, 2011 [facility] [place] [facility] [address] [id number] [place] [address]- 7614 08 Dec, 2011 [facility] [address] [facility] [id number] [place] [address]- 4200 07 Dec, 2011 [facility] [place] [facility] [address] [facility] [id number] [place] [address]- 4041 Dec, [facility] [place] [facility] [address] [facility] [id number] [place] [address]- 3111 Dec, [facility] [place] [facility] [address] [facility] [id number] [place] [address]- 2541 Dec, [facility] [place] [facility] [address] [facility] [id number] [place] [address]- 1443 Nov, [facility] [place] [facility] [address] [id number] [place] [address]- 0048 Nov, [facility] [place] [facility] [address] [facility] [id number] [place] [address]- 4886 Nov, [facility] [place] [facility] [address] [id number] [place] [address]- 7376 Nov, [facility] [place] [facility] [address] [id number] [place] [address]- 3804 Nov, [facility] [place] [facility] [address] [id number] [place] [address]- 8508 Nov, [facility] [place] [facility] [address] [id number] [place] [address]- 5964 Oct, [facility] [place] [facility] [address] [id number] [place] [address]- 9742 Oct, [facility] [place] [facility] [address] [id number] [place] [address]- 1839 Sep, [facility] [place] [facility] [address] [id number] [place] [address]- 7980 Sep, [facility] [place] [facility] [address] [id number] [place] [address]- 8874 Sep, [facility] [place] [facility] [address] [id number] [place] [address]- 7057 Sep, [facility] [place] [facility] [address] [id number] [place] [address]- 1535 Sep, [facility] [place] [facility] [address] [id number] [place] [address]- 3445 March, [facility] [place] [facility] [address] [id number] [place] [address]- 1405 Oct, [facility] [place] [facility] [address] [id number] [place] [address]- 9538 Oct, [facility] [place] [facility] [address] [id number] [place] [address]- 7836 Oct, [facility] [place] [facility] [address] [id number] [place] [address]- 8229 24 Sep, 2010 [facility] [place] [facility] [address] [id number] [place] [address]- 0065 Sep, [facility] [address] [facility] [id number], [place] [address] 2546 Sep, [facility] [id number] [address]- 2546 Sep, [facility] [address] [id number], [place] [address] 2546 Aug, [facility] [id number], [place] [address] 2546 Oct, [facility] [address] [id number] [address]- 3276 Oct, [facility] [address] [id number] [address]- 1433 May, IMMUNIZATIONS No Known Immunizations SOCIAL HISTORY Never Assessed REASON FOR VISIT Requests return call PLAN OF CARE VITAL SIGNS MEDICATIONS Unknown Medications RESULTS No Results PROCEDURES No Known procedures INSTRUCTIONS MEDICATIONS ADMINISTERED No Known Medications MEDICAL (GENERAL) HISTORY Type Description Date Medical History hypertension Medical History panic attacks Surgical History cholecystectomy 2008 Hospitalization History surgery
--- OUTSIDE RECORDS SUMMARY | 2018-12-11 10:46 | XMS REPORT ---
Author Author SANJEEV PHELPS Organization [employer] Address Unknown Phone Unavailable Care Team Providers Care Laser Beam Machine Operator Name Role Phone SANJEEV PHELPS CP Unavailable Allergies No Known Allergies Problems [...]
--- OUTSIDE RECORDS SUMMARY | 2018-12-11 10:46 | XMS REPORT ---
Author LEIDA Colunga Organization [employer] Address Unknown Phone Unavailable Care Team Providers Care Health Sciences Department Chair Name Role Phone LEIDA ANDINO CP Unavailable [...] Instructions Start Date End Date Status Dosage Amlodipine Besylate [facility] [address]-05 10 mg Orally Once a day 1 tablet Propranolol HCl [facility] [address]-61 20 mg Orally 2 times a day 1 tablet Results No Known Results Summary Purpose [employer] Submission
--- OUTSIDE RECORDS SUMMARY | 2018-12-11 10:46 | XMS REPORT ---
Author Author SANJEEV PHELPS [facility] eClinicalWorks Address Unknown Phone Unavailable Care Team Providers Care Drier Unloader Name Role Phone SANJEEV PHELPS Unavailable Allergies [...] patient &/family, 45 minutes, established patient CPT-4 46229 February 23, 2016 Results No Known Results Summary Purpose eClinicalWorks Submission
--- OUTSIDE RECORDS SUMMARY | 2018-12-11 10:47 | XMS REPORT ---
Author Author LEIDA ANDINO [facility] eClinicalWorks Address Unknown Phone Unavailable Care Team Providers Care Transportation Assistant Name Role Phone LEIDA ANDINO CP Unavailable Allergies No Known Allergies Problems Problem Type Condition Code Onset Dates Condition Status Problem Urge incontinence 788.31 Active Assessment Edema of left lower extremity R60.0 Active Problem Screening examination for pulmonary tuberculosis [...] Start Date End Date Status Dosage Valium [facility] [address]-38 10 MG Orally Once a day as needed February 02, 2015 1 tablet Results No Known Results Summary Purpose eClinicalWorks Submission
--- OUTSIDE RECORDS SUMMARY | 2018-12-11 10:47 | XMS REPORT ---
Author Author SANJEEV PHELPS [facility] eClinicalWorks Address Unknown Phone Unavailable Care Team Providers Care Dye Winch Operator Name Role Phone SANJEEV PHELPS Unavailable [...] Coding System Code Date Psychotherapy, patient &/family, 30 minutes, established patient CPT-4 98533 Dec 11, 2015 Results No Known Results Summary Purpose eClinicalWorks Submission
--- OUTSIDE RECORDS SUMMARY | 2018-12-11 10:47 | XMS REPORT ---
Author Author AMANDA YANEZ Organization eClinicalWorks Address Unknown Phone Unavailable Care Team Providers Care Wardrobe Attendant Name Role Phone AMANDA YANEZ CP Unavailable Allergies No Known Allergies Problems [...]
--- OUTSIDE RECORDS SUMMARY | 2018-12-11 10:47 | XMS REPORT ---
Author Author SANJEEV PHELPS [facility] eClinicalWorks Address Unknown Phone Unavailable Care Team Providers Care Chemical Engineering Intern Name Role Phone SANJEEV PHELPS Unavailable [...] patient &/family, 30 minutes, established patient CPT-4 59587 Jul 07, 2016 Results No Known Results Summary Purpose eClinicalWorks Submission
--- OUTSIDE RECORDS SUMMARY | 2018-12-11 10:47 | XMS REPORT ---
Author Author LEIDA ANDINO [facility] Address [address] [place] [address] Care Team Providers Care Ambulatory Technologist Name Role Phone LEIDA ANDINO Unavailable PROBLEMS Type Condition ICD9-CM Code [id number] Code Onset Dates Condition Status SNOMED Code Problem Anxiety F41.9 Active 82332519 Problem Unspecified episodic mood disorder F39 Active 134101241 Problem Unspecified personality disorder F60.9 Active 07647910 Problem Anxiety disorder, unspecified F41.9 Active 997303248 ALLERGIES No Known Allergies SOCIAL HISTORY Never Assessed PLAN OF CARE VITAL SIGNS Height 68 in 2017-01-23 Weight 233.5 lbs 2017-01-23 Temperature 98.1 degrees Fahrenheit 2017-01-23 Heart Rate 64 bpm 2017-01-23 Respiratory Rate 20 2017-01-23 BMI 35.50 kg/m2 2017-01-23 Blood pressure systolic 118 mmHg 2017-01-23 Blood pressure diastolic 80 mmHg 2017-01-23 MEDICATIONS Medication Instructions Dosage Frequency Start Date End Date Duration Status Propranolol HCl 20 mg Orally 2 times a day 1 tablet 12h 90 Active PredniSONE 20 mg Orally Once a day 2 tablets 24h Jan, Jan, 05 days Active Pantoprazole Sodium 40 mg TAKE ONE TABLET BY MOUTH DAILY 90 Active Ditropan XL 5 mg 1 tablet 24h Active Medical Compression Stockings N/A as directed Aug, Active Advair Diskus 250-50 MCG/DOSE INHALE ONE PUFF BY MOUTH TWICE DAILY 30 Active Sertraline HCl 100 mg 1 tablet 24h 30 Active Amlodipine Besylate 10 mg TAKE ONE TABLET BY MOUTH DAILY 90 Active Valium 10 mg Orally Twice a day 1 tablet 12h Jan, 28 days Active RESULTS No Results PROCEDURES No Known procedures IMMUNIZATIONS No Known Immunizations MEDICAL (GENERAL) HISTORY Type Description Date Medical History hypertension Medical History panic attacks Surgical History cholecystectomy 2008 Hospitalization History surgery
--- OUTSIDE RECORDS SUMMARY | 2018-12-11 10:47 | XMS REPORT ---
Author Author LEIDA ANDINO [facility] eClinicalWorks Address Unknown Phone Unavailable Care Team Providers Care Supervisor Endless Track Vehicle Name Role Phone LEIDA ANDINO CP Unavailable Allergies, Adverse Reactions, Alerts Substance Reaction Event Type N.K.D.A. Info Not Available Non Drug Allergy Problems Problem Type Condition Code Onset Dates [...] Instructions Start Date End Date Status Dosage Advair Diskus [facility] [address]-85 250-50 MCG/DOSE Inhalation Twice a day March 09, 2015 1 puff Ditropan XL [facility] [address]-79 5 MG Orally Once a day March 16, 2015 1 tablet Propranolol HCl [facility] [address]-30 20 MG Orally Twice a day March 09, 2015 1 tablet Amlodipine Besylate [facility] [address]-64 10 MG Once a day 1 tablet Pantoprazole Sodium [facility] [address]-41 40 MG Once a day 1 tablet Valium [facility] [address]-50 10 MG Orally Once a day February 02, 2015 1 tablet Sertraline HCl [facility] [address]-34 100 MG Orally Once a day March 09, 2015 1 tablet Procedures Procedure Coding System Code Date Office Visit, Est Pt., Level 3 CPT-4 78713 Aug 14, 2015 Vital Signs Date/Time: Aug 14, 2015 Temperature 97.0 F Weight 232.2 lbs Height 68 in BMI 35.30 Index Blood Pressure Diastolic 70 mmHg Blood Pressure Systolic 122 mmHg Cardiac Monitoring Heart Rate 78 bpm Results No Known Results Summary Purpose eClinicalWorks Submission
--- OUTSIDE RECORDS SUMMARY | 2018-12-11 10:47 | XMS REPORT ---
Author LEIDA Colunga [facility] eClinicalWorks Address Unknown Phone Unavailable Care Team Providers Care Computer Systems Integrator Name Role Phone LEIDA ANDINO CP Unavailable Allergies, Adverse Reactions, Alerts Substance Reaction Event Type N.K.D.A. Info Not Available Non Drug Allergy Problems Problem Type Condition Code Onset Dates Condition Status Problem Candidiasis of vulva and vagina 112.1 Active Problem Unspecified breast screening V76.10 Active Problem Screening for malignant neoplasm of the cervix V76.2 Active Assessment Visit for TB skin test Z11.1 Active Problem Urge incontinence 788.31 Active Problem [...] Instructions Start Date End Date Status Dosage Ditropan XL [facility] 49147184283 5 MG TAKE ONE TABLET BY MOUTH DAILY Propranolol HCl ND 70462766171 20 mg Orally 2 times a day 1 [place] [address]-61 40 mg TAKE ONE TABLET BY MOUTH DAILY Sertraline HCl ND 26993661682 100 MG TAKE ONE TABLET BY MOUTH DAILY Medical Compression Stockings ND 0 N/A daily while up on feet. DX: EDEMA Aug 31, 2015 as directed Metoprolol Succinate ER ND 00315971092 50 MG TAKE ONE TABLET BY MOUTH DAILY (MUST HAVE APPOINTMENT FOR REFILL) Valium [facility] [address]-24 10 mg Orally Once a day as needed. February 02, 2015 1 [place] [address]-06 10 mg TAKE ONE TABLET BY MOUTH DAILY Advair Diskus ND 36748805352 250-50 MCG/DOSE INHALE ONE PUFF BY MOUTH TWICE DAILY Procedures Procedure Coding System Code Date TB INTRADERMAL TEST CPT-4 08496 Aug 19, 2016 Results No Known Results Summary Purpose eClinicalWorks Submission
--- OUTSIDE RECORDS SUMMARY | 2018-12-11 10:47 | XMS REPORT ---
Author Author LEIDA ANDINO [facility] Address [address] [place] [address] Care Team Providers Care Traffic Rate Clerk Name Role Phone LEIDA ANDINO Unavailable PROBLEMS Type Condition ICD9-CM Code [id number] Code Onset Dates Condition Status SNOMED Code Problem Anxiety F41.9 Active 35553205 Problem Unspecified episodic mood disorder F39 Active 961088393 Problem Unspecified personality disorder F60.9 Active 89052724 Problem Anxiety disorder, unspecified F41.9 Active 249518373 ALLERGIES Unknown Allergies SOCIAL HISTORY No smoking Hx information available PLAN OF CARE VITAL SIGNS MEDICATIONS Medication Instructions Dosage Frequency Start Date End Date Duration Status Valium 10 mg Orally Once a day as needed. 1 tablet Jan, 28 days Active RESULTS No Results PROCEDURES No Known procedures IMMUNIZATIONS No Known Immunizations
--- OUTSIDE RECORDS SUMMARY | 2018-12-11 10:47 | XMS REPORT ---
Author LEIDA Colunga [facility] eClinicalWorks Address Unknown Phone Unavailable Care Team Providers Care Glost Tile Sorter Name Role Phone LEIDA ANDINO CP Unavailable Allergies, Adverse Reactions, Alerts Substance Reaction Event Type N.K.D.A. Info Not Available Non Drug Allergy Problems Problem Type Condition Code Onset Dates Condition Status Problem Candidiasis of vulva and vagina 112.1 Active Problem Unspecified breast screening V76.10 Active Problem Screening for malignant neoplasm of the cervix V76.2 Active Assessment Anxiety F41.9 Active Problem Urge incontinence 788.31 Active Problem [...] Instructions Start Date End Date Status Dosage Sertraline HCl [facility] 28070715675 100 MG TAKE ONE TABLET BY MOUTH DAILY Medical Compression Stockings NDC 0 N/A daily while up on feet. DX: EDEMA Aug 31, 2015 as directed Valium [facility] [address]-08 10 MG Orally Once a day as needed. MUST HAVE APPT FOR FURTHER REFILLS, NEEDS FASTING LABS AT APPT February 02, 2015 1 tablet Propranolol HCl ND 79242904965 20 MG TAKE ONE TABLET BY MOUTH TWICE DAILY Advair Diskus ND 21690824769 250-50 MCG/DOSE INHALE ONE PUFF BY MOUTH TWICE DAILY Pantoprazole Sodium ND 04504098302 40 MG TAKE ONE TABLET BY MOUTH DAILY Amlodipine Besylate ND 96090232670 10 MG TAKE ONE TABLET BY MOUTH DAILY Ditropan XL ND 13774937976 5 MG TAKE ONE TABLET BY MOUTH DAILY Procedures Procedure Coding System Code Date Office Visit, Est Pt., Level 3 CPT-4 82907 February 29, 2016 Vital Signs Date/Time: February 29, 2016 Temperature 97.9 F Weight 230 lbs Height 68 in BMI 34.97 Index Blood Pressure Diastolic 66 mmHg Blood Pressure Systolic 110 mmHg Cardiac Monitoring Heart Rate 78 bpm Results No Known Results Summary Purpose eClinicalWorks Submission
--- OUTSIDE RECORDS SUMMARY | 2018-12-11 10:48 | XMS REPORT ---
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 Topographical Name Role Phone LEIDA ANDINO Unavailable PROBLEMS Type Condition ICD9-CM Code ZAP82-FM Code Onset Dates Condition Status SNOMED Code Problem Stress incontinence of urine N39.3 Active 38051760 Problem Anxiety F41.9 Active 51176544 Problem Anxiety disorder, unspecified F41.9 Active 868440804 Problem Unspecified episodic mood disorder F39 Active 431732057 Problem Unspecified personality disorder F60.9 Active 12763005 ALLERGIES No Information ENCOUNTERS Encounter Location Date Diagnosis [place] [address] [address]10- [address] March, [place] [id number] [place] [id number] [place] [address] 99022- 3409 March, Anxiety disorder, unspecified F41.9 [place] [address] [place] [id number] [place] [address] 20379- 8232 Feb, Unspecified episodic mood disorder F39 ; Anxiety disorder, unspecified F41.9 and Unspecified personality disorder F60.9 [place] [address] [place] [id number] [place] [address] 64376- 5222 Feb, Unspecified episodic mood disorder F39 ; Anxiety disorder, unspecified F41.9 and Unspecified personality disorder F60.9 [place] [address] [place] [id number] [place] [address] 53641- 5276 Feb, Anxiety disorder, unspecified F41.9 [place] [address] [place] [id number] [place] [address] 91911- 3559 Jan, Unspecified episodic mood disorder F39 ; Anxiety disorder, unspecified F41.9 and Unspecified personality disorder F60.9 [facility] [address] [address] 4320 Jan, Anxiety F41.9 [facility] [address] [place] [id number] [place] [address] 29162- 8916 Jan, Anxiety disorder, unspecified F41.9 [facility] [id number] [place] [address] 78684- 4806 Dec, Unspecified episodic mood disorder F39 ; Anxiety disorder, unspecified F41.9 and Unspecified personality disorder F60.9 [facility] [address] [place] [id number] [place] [address] 33053- 4110 Dec, Anxiety F41.9 [facility] [address] [place] [id number] [place] [address] 83575- 6068 Dec, Anxiety disorder, unspecified F41.9 [facility] [address] [place] [id number] [place] [address] 04243- 7409 Dec, Unspecified episodic mood disorder F39 ; Anxiety disorder, unspecified F41.9 and Unspecified personality disorder F60.9 [facility] [id number] [place] [address] 67854- 0631 Nov, [facility] [id number] [place] [address] 93339- 5851 Nov, [facility] [id number] [place] [address] 41752- 7286 Nov, Unspecified episodic mood disorder F39 ; Anxiety disorder, unspecified F41.9 and Unspecified personality disorder F60.9 [facility] [id number] [place] [address] 37171- 9558 Nov, Anxiety disorder, unspecified F41.9 [facility] [id number] [place] [address] 81281- 5775 Oct, Unspecified episodic mood disorder F39 ; Anxiety disorder, unspecified F41.9 and Unspecified personality disorder F60.9 [place] [address] [address]- 6557 Oct, Vaginal yeast infection B37.3 [facility] [address] [place] [id number] [place] [address] 71523- 5150 Oct, [place] [address] [place] [id number] [place] [address] 45741- 5114 Oct, Anxiety disorder, unspecified F41.9 [place] [address] [place] [id number] [place] [address] 27100- 2690 Oct, Routine gynecological examination Z01.419 ; Screening for breast cancer Z12.31 and Vaginal yeast infection B37.3 [place] [address] [place] [id number] [place] [address] 40870- 3940 Sep, Unspecified episodic mood disorder F39 ; Anxiety disorder, unspecified F41.9 and Unspecified personality disorder F60.9 [place] [address] [place] [id number] [place] [address] 48629- 7904 Sep, [place] [address] [place] [id number] [place] [address] 35901- 8203 Sep, Anxiety disorder, unspecified F41.9 [place] [address] [place] [id number] [place] [address] 34044- 3889 Sep, Bronchitis J40 and Stress incontinence of urine N39.3 [place] [address] [place] [id number] [place] [address] 41732- 3665 Sep, Stress incontinence of urine N39.3 ; Bronchitis J40 and Anxiety F41.9 [place] [id number] [place] [address] 61121- 4453 Sep, [place] [address] [place] [id number] [place] [address] 72552- 9566 Sep, Unspecified episodic mood disorder F39 ; Anxiety disorder, unspecified F41.9 and Unspecified personality disorder F60.9 [place] [address] [place] [id number] [place] [address] 75728- 0535 Aug, Anxiety F41.9 ; Stress incontinence of urine N39.3 and Encounter for immunization Z23 [facility] [address] [place] [id number] [place] [address] 11702- 4908 Aug, Anxiety disorder, unspecified F41.9 [facility] [address] [place] [id number] [place] [address] 37645- 3145 Jul, Unspecified episodic mood disorder F39 ; Anxiety disorder, unspecified F41.9 and Unspecified personality disorder F60.9 [facility] [address] [place] [id number] [place] [address] 94617- 9453 Jul, [place] [address] [place] [id number] [place] [address] 39406- 6501 Jul, Unspecified episodic mood disorder F39 ; Anxiety disorder, unspecified F41.9 and Unspecified personality disorder F60.9 [place] [address] [place] [id number] [place] [address] 98771- 2163 Jul, Anxiety disorder, unspecified F41.9 [facility] [address] [place] [id number] [place] [address] 83891- 2833 Jun, Unspecified episodic mood disorder F39 ; Anxiety disorder, unspecified F41.9 and Unspecified personality disorder F60.9 [place] [id number] [place] [address] 62476- 7505 Jun, Anxiety disorder, unspecified F41.9 [facility] [address] [place] [id number] [place] [address] 70225- 0795 Jun, Unspecified episodic mood disorder F39 ; Anxiety disorder, unspecified F41.9 and Unspecified personality disorder F60.9 [facility] [address] [place] [id number] [place] [address] 39161- 2566 Jun, [facility] [id number] [place] [address] 24696- 6523 May, Anxiety disorder, unspecified F41.9 [facility] [address] [place] [id number] [address]- 2970 May, Unspecified episodic mood disorder F39 ; Anxiety disorder, unspecified F41.9 and Unspecified personality disorder F60.9 [facility] [address] [address]- 4861 Apr, Anxiety disorder, unspecified F41.9 [facility] [address] [place] [id number] [place] [address] 53574- 7021 March, Unspecified episodic mood disorder F39 ; Anxiety disorder, unspecified F41.9 and Unspecified personality disorder F60.9 [place] [address] [place] [id number] [place] [address] 72179- 2874 March, Bronchitis J40 [facility] [address] [place] [id number] [place] [address] 69825- 4309 March, Unspecified episodic mood disorder F39 ; Anxiety disorder, unspecified F41.9 and Unspecified personality disorder F60.9 [facility] [id number] [place] [address] 02968- 6744 Feb, [facility] [address] [place] [id number] [place] [address] 14844- 2894 Feb, Unspecified episodic mood disorder F39 ; Anxiety disorder, unspecified F41.9 and Unspecified personality disorder F60.9 [facility] [id number] [place] [address] 21205- 0823 Feb, Bronchitis J40 [facility] [id number] [place] [address] 60051- 1277 Feb, Unspecified episodic mood disorder F39 ; Anxiety disorder, unspecified F41.9 and Unspecified personality disorder F60.9 [facility] [id number] [place] [address] 76152- 8255 Jan, Unspecified episodic mood disorder F39 ; Anxiety disorder, unspecified F41.9 and Unspecified personality disorder F60.9 [facility] [id number] [place] [address] 82973- 6237 Jan, Bronchitis J40 [facility] [address] [address]- 5596 Jan, Unspecified episodic mood disorder F39 ; Anxiety disorder, unspecified F41.9 and Unspecified personality disorder F60.9 [facility] [address] [address]- 3959 Dec, Anxiety F41.9 [facility] [id number] [place] [address] 32945- 4194 Dec, Unspecified episodic mood disorder F39 ; Anxiety disorder, unspecified F41.9 and Unspecified personality disorder F60.[address] [id number] Dec, [facility] [address] [address]- 4816 Dec, Unspecified episodic mood disorder F39 ; Anxiety disorder, unspecified F41.9 and Unspecified personality disorder F60.9 [place] [address] [address]- 1162 Nov, [facility] [id number] [place] [address] 50150- 0722 Oct, Unspecified episodic mood disorder F39 ; Anxiety disorder, unspecified F41.9 and Unspecified personality disorder F60.9 [facility] [address] [address]- 4885 Oct, [facility] [address] [place] [id number] [address] -[address] Oct, Acute upper respiratory infection, unspecified J06.9 ; Other viral agents as the cause of diseases classified elsewhere B97.89 and Cough R05 [facility] [address] [place] [id number] [address]- 7157 Aug, Unspecified episodic mood disorder F39 ; Anxiety disorder, unspecified F41.9 and Unspecified personality disorder F60.9 [facility] [address] [facility] [id number] [address]- 9386 Aug, [facility] [address], [place] [address]- 3586 Aug, [facility] [address] [facility] [id number] [address]- 1433 Aug, [facility] [address] [place] [id number] [place] [address] 89474- 8781 Aug, Visit for TB skin test Z11.1 [facility] [address] [place] [id number] [address]- 8402 Jul, [facility] [address] [place] [id number] [place] [address] 89779- 9886 Jul, [facility] [id number] [place] [address] 79522- 7380 Jul, [facility] [id number], [place] [address]- 2940 Jul, [facility] [address] [place] [id number] [place] [address] 14321- 4677 Jul, [facility] [address], [place] [address]- 7088 Jul, Unspecified episodic mood disorder F39 ; Anxiety disorder, unspecified F41.9 and Unspecified personality disorder F60.9 [facility] [address] [address]- 7431 Jun, [facility] [address] [facility] [id number] [address]- 9712 Jun, Unspecified episodic mood disorder F39 ; Anxiety disorder, unspecified F41.9 and Unspecified personality disorder F60.9 [facility] [address] [facility] [id number] [address]- 8921 Jun, [facility] [address] [address]- 1635 May, Unspecified episodic mood disorder F39 ; Anxiety disorder, unspecified F41.9 and Unspecified personality disorder F60.9 [facility] [address], [place] [address]- 0264 May, [facility] [id number] [place] [address] 84501- 1803 May, [facility] [address] [place] [id number] [place] [address] 32092- 3155 May, Edema, unspecified R60.9 [facility] [id number] [place] [address] 57379- 9328 Apr, [facility] [address] [place] [id number] [place] [address] 19636- 6725 Apr, Unspecified episodic mood disorder F39 ; Anxiety disorder, unspecified F41.9 and Unspecified personality disorder F60.9 [facility] [id number] [place] [address] 71054- 2407 Apr, Anxiety F41.9 [facility] [id number] [place] [address] 60136- 7675 March, Unspecified episodic mood disorder F39 ; Anxiety disorder, unspecified F41.9 and Unspecified personality disorder F60.9 [facility] [address] [address]- 8339 March, Unspecified episodic mood disorder F39 ; Anxiety disorder, unspecified F41.9 and Unspecified personality disorder F60.9 [facility] [address] [address]- 6678 Feb, Anxiety F41.9 [facility] [id number] [place] [address] 17763- 9702 Feb, Unspecified episodic mood disorder F39 ; Anxiety disorder, unspecified F41.9 and Unspecified personality disorder F60.9 [facility] [id number] [place] [address] 36629- 9437 Jan, Unspecified episodic mood disorder F39 ; Anxiety disorder, unspecified F41.9 and Unspecified personality disorder F60.9 [facility] [id number] [place] [address] 26135- 8862 Jan, Unspecified episodic mood disorder F39 ; Anxiety disorder, unspecified F41.9 and Unspecified personality disorder F60.9 [facility] [address] [place] [id number] [place] [address] 88137- 9698 Jan, Edema, unspecified R60.9 [facility] [address] [place] [id number] [place] [address] 06287- 1067 Dec, [facility] [address] [place] [id number] [place] [address] 73960- 7782 Dec, [facility] [address] [place] [id number] [place] [address] 66213- 5555 Dec, [facility] [address] [place] [id number] [place] [address] 41657- 3956 Dec, Unspecified episodic mood disorder F39 ; Anxiety disorder, unspecified F41.9 and Unspecified personality disorder F60.9 [facility] [id number] [place] [address] 08217- 5572 Nov, [facility] [address] [address]- 8666 Nov, Unspecified episodic mood disorder F39 ; Anxiety disorder, unspecified F41.9 and Unspecified personality disorder F60.9 [facility] [address], [place] [address]- 5872 Oct, Unspecified episodic mood disorder F39 ; Anxiety disorder, unspecified F41.9 and Unspecified personality disorder F60.9 [facility] [address], [place] [address]- 6547 Oct, Unspecified episodic mood disorder F39 ; Anxiety disorder, unspecified F41.9 and Unspecified personality disorder F60.9 [facility] [id number] [place] [address] 40666- 9780 Sep, Unspecified episodic mood disorder F39 ; Anxiety disorder, unspecified F41.9 and Unspecified personality disorder F60.9 [facility] [address] [place] [id number] [place] [address] 59289- 0906 Sep, Encounter for immunization Z23 [facility] [address] 76987- 1876 Sep, Edema of left lower extremity R60.0 [facility] [address] [place] [id number] [place] [address] 59712- 5241 Aug, Unspecified episodic mood disorder F39 ; Anxiety disorder, unspecified F41.9 and Unspecified personality disorder F60.9 [facility] [address] [place] [id number] [place] [address] 78897- 6445 Aug, [facility] [address] [place] [id number] [place] [address] 46908- 2004 Aug, Edema of left lower extremity R60.0 [facility] [address] [place] [id number] [place] [address] 28959- 9363 Aug, [facility] [address] [place] [id number] [place] [address] 54733- 9432 Aug, Unspecified episodic mood disorder F39 ; Anxiety disorder, unspecified F41.9 and Unspecified personality disorder F60.9 [facility] [address] [place] [id number] [place] [address] 41954- 8993 Jul, Unspecified episodic mood disorder 296.90 ; Anxiety disorder , unspecified 300.00 and Unspecified personality disorder 301.9 [facility] [address] [place] [id number] [place] [address] 98209- 0954 Jul, Unspecified episodic mood disorder 296.90 ; Anxiety disorder , unspecified 300.00 and Unspecified personality disorder 301.9 [facility] [address] [place] [id number] [place] [address] 72730- 5903 Jul, [facility] [address] [address]- 4839 Jun, Unspecified episodic mood disorder 296.90 ; Anxiety disorder , unspecified 300.00 and Unspecified personality disorder 301.9 [facility] [address] [address]- 1505 May, Unspecified episodic mood disorder 296.90 ; Anxiety disorder , unspecified 300.00 and Unspecified personality disorder 301.9 [facility] [address] [address]- 6731 May, Anxiety disorder, unspecified 300.00 [facility] [address] [place] [id number] [place] [address] 89692- 8319 May, Anxiety disorder, unspecified 300.00 and Edema 782.3 [facility] [address] [place] [id number] [place] [address] 11595- 4537 May, Unspecified episodic mood disorder 296.90 ; Anxiety disorder , unspecified 300.00 and Unspecified personality disorder 301.9 [facility] [address] [address]- 6697 Apr, [facility] [address] [place] [address] [id number] [place] [address] 09146- 9499 Apr, Unspecified episodic mood disorder 296.90 ; Anxiety disorder , unspecified 300.00 and Personality disorder, unspecified 301.9 [facility] [address] [address]- 6591 Apr, Unspecified episodic mood disorder 296.90 ; Anxiety disorder , unspecified 300.00 and Unspecified personality disorder 301.9 [facility] [address] [address]- 0998 March, [facility] [id number] [place] [address] 66652- 9777 March, Unspecified episodic mood disorder 296.90 ; Anxiety disorder , unspecified 300.00 and Unspecified personality disorder 301.9 [facility] [address] [address]- 9949 March, Unspecified episodic mood disorder 296.90 ; Anxiety disorder 300.00 and Unspecified personality disorder 301.9 [facility] [id number] [address]- 9741 March, [facility] [id number] [address]- 9605 March, [facility] [id number] [address]- 5767 Feb, [facility] [id number] [place] [address]- 8320 Feb, [facility] [id number], [place] [address]- 0419 Feb, [facility] [address], [place] [address]- 7626 Jan, [facility] [address], [place] [address]- 3917 Jan, [facility] [id number] 5838 Jan, [facility] [id number] [address]- 8813 Jan, [facility] [id number] [address]- 8967 Jan, [facility] [id number], [place] [address]- 0971 Jan, [facility] [id number] [place] [id number] Jan, [facility] [id number], [place] [address]- 8908 Jan, [facility] [id number] [address]- 8148 Jan, [facility] [place] [facility] [address] [id number] [place] [address]- 3268 Jan, 2014 [facility] [place] [facility] [address] [id number] [place] [address]- 7215 Jan, [facility] [place] [facility] [address] [id number] [place] [address]- 4822 Jan, 2014 [facility] [place] [facility] [address] [id number] [place] [address]- 1993 Jan, 2014 [facility] [place] [facility] [address] [id number] [place] [address]- 7972 Jan, 2014 [facility] [place] [facility] [address] [id number] [place] [address]- 6577 Jan, 2014 [facility] [place] [facility] [address] [facility] [id number] [place] [address]- 2120 Jan, [facility] [place] [facility] [address] [id number] [place] [address] Dec, [facility] [place] [facility] [address] [id number] [place] [address] Dec, [facility] [place] [facility] [address] [facility] [id number] [place] [address] Dec, [facility] [place] [facility] [address] [facility] [id number] [place] [address] Dec, [facility] [place] [facility] [address] [id number] [address] Nov, [facility] [place] [facility] [address] [id number] [place] [address] Nov, [facility] [place] [facility] [address] [id number] [place] [address] Nov, [facility] [place] [facility] [address] [id number], [place] [address] Nov, [facility] [place] [facility] [address] [id number], [place] [address] Oct, [facility] [place] [facility] [address] [id number] [place] [address] Oct, [facility] [place] [facility] [address] [id number] [place] [address] Oct, [facility] [place] [facility] [address] [id number] [place] [address] Oct, [facility] [place] [facility] [address] [id number] [place] [address] Oct, [facility] [place] [facility] [address] [id number] [place] [address] Oct, [facility] [place] [facility] [address] [id number] [place] [address] Oct, [facility] [place] [facility] [address] [id number] [place] [address] Oct, [facility] [place] [facility] [address] [id number] [place] [address] Oct, [facility] [place] [facility] [address] [id number] [place] [address]139 Oct, [facility] [place] [facility] [address] [id number] [place] [address] 0648 Oct, [facility] [place] [facility] [address] [id number] [place] [address] 5733 Oct, [facility] [place] [facility] [address] [id number] [place] [address] 5167 Oct, [facility] [place] [facility] [address] [id number] [place] [address] 9624 Oct, [facility] [place] [facility] [address] [id number] [place] [address] 9422 Oct, [facility] [place] [facility] [address] [id number] [place] [address] 0394 Oct, [facility] [place] [facility] [address] [id number] [place] [address] 2809 Sep, [facility] [place] [facility] [address] [id number] [place] [address]- 3821 Sep, [facility] [place] [facility] [address] [id number] [place] [address] 4167 Sep, [facility] [place] [facility] [address] [id number] [place] [address] 7977 Sep, [facility] [place] [facility] [address] [id number] [place] [address]- 5229 Sep, [facility] [place] [facility] [address] [id number] [place] [address]- 8412 Sep, [facility] [place] [facility] [address] [id number] [place] [address] 8696 Sep, [facility] [place] [facility] [address] [id number] [place] [address]- 1187 Sep, [facility] [place] [facility] [address] [id number] [place] [address]- 9839 Sep, [facility] [place] [facility] [address] [id number] [place] [address]- 0317 Sep, [facility] [place] [facility] [address] [id number] [place] [address]- 3802 Aug, [facility] [place] [facility] [address] [id number] [place] [address]- 6390 30 Aug, 2014 [facility] [place] [facility] [address] [id number] [place] [address]- 8006 14 Aug, 2014 [facility] [place] [facility] [address] [id number] [place] [address]- 0154 14 Aug, 2014 [facility] [place] [facility] [address] [id number] [place] [address]- 1767 13 Aug, 2014 [facility] [place] [facility] [address] [id number] [place] [address]- 4493 Aug, [facility] [place] [facility] [address] [id number] [place] [address]- 2105 Aug, [facility] [place] [facility] [address] [id number] [place] [address]- 3441 Aug, [facility] [place] [facility] [address] [id number] [place] [address]- 7578 Jul, 2013 [facility] [place] [facility] [address] [id number] [place] [address]- 0365 Jul, 2013 [facility] [place] [facility] [address] [id number] [place] [address]- 4498 Jul, 2013 [facility] [place] [facility] [address] [id number] [place] [address]- 0369 Jul, 2013 [facility] [place] [facility] [address] [id number] [place] [address]- 3204 Jul, 2013 [facility] [place] [facility] [address] [id number] [place] [address]- 5430 Jul, 2013 [facility] [place] [facility] [address] [id number] [place] [address]- 2855 Jun, [facility] [place] [facility] [address] [id number] [place] [address]- 0353 Jun, [facility] [place] [facility] [address] [id number] [place] [address]- 8840 May, [facility] [place] [facility] [address] [id number] [address] 0489 May, [facility] [place] [facility] [address] [id number] [place] [address]- 2464 May, [facility] [place] [facility] [address] [id number] [place] [address]- 6632 May, [facility] [place] [facility] [address] [id number] [place] [address]- 6670 May, [facility] [place] [facility] [address] [id number] [address] 8183 May, [facility] [place] [facility] [address] [id number] [place] [address]- 5443 May, [facility] [place] [facility] [address] [id number] [place] [address]- 4806 May, [facility] [place] [facility] [address] [id number] [place] [address]- 3064 Apr, [facility] [place] [facility] [address] [id number] [place] [address]- 6834 Apr, [facility] [place] [facility] [address] [id number] [place] [address]- 8996 March, [facility] [place] [facility] [address] [id number] [place] [address]- 5874 March, [facility] [place] [facility] [address] [id number] [place] [address]- 8097 Feb, [facility] [place] [facility] [address] [id number] [place] [address]- 3729 Feb, [facility] [place] [facility] [address] [id number] [place] [address]- 5136 Feb, [facility] [place] [facility] [address] [id number] [place] [address]- 0645 Feb, [facility] [place] [facility] [address] [id number] [place] [address]- 9450 Feb, [facility] [place] [facility] [address] [id number] [place] [address]- 0419 Feb, [facility] [place] [facility] [address] [id number] [place] [address]- 4998 Feb, [facility] [place] [facility] [address] [id number] [place] [address]- 7107 Feb, [facility] [place] [facility] [address] [id number] [place] [address]- 5618 Feb, [facility] [place] [facility] [address] [id number] [place] [address]- 9345 Feb, [facility] [place] [facility] [address] [id number] [place] [address]- 6320 Jan, [facility] [place] [facility] [address] [id number] [place] [address]- 0451 Jan, [facility] [place] [facility] [address] [id number] [place] [address]- 4902 Jan, [facility] [place] [facility] [address] [id number] [place] [address]- 0445 Jan, [facility] [place] [facility] [address] [id number] [place] [address]- 8003 Jan, [facility] [place] [facility] [address] [id number] [place] [address]- 8216 Dec, [facility] [place] [facility] [address] [id number] [place] [address]- 0988 Dec, [facility] [place] [facility] [address] [id number] [place] [address]- 4170 Dec, [facility] [place] [facility] [address] [facility] [id number] [place] [address]- 0228 Dec, [facility] [place] [facility] [address] [facility] [id number] [place] [address]- 9040 Dec, [facility] [place] [facility] [address] [id number] [place] [address]- 1429 Dec, [facility] [place] [facility] [address] [id number] [place] [address]- 3812 Nov, [facility] [place] [facility] [address] [id number] [place] [address]- 4090 Nov, [facility] [place] [facility] [address] [id number] [place] [address]- 9353 Nov, [facility] [place] [facility] [address] [id number], [place] [address] 6833 Nov, [facility] [address] [id number] [place] [address]- 7853 Nov, [facility] [place] [facility] [address] [id number] [place] [address]- 5402 Nov, [facility] [place] [facility] [address] [id number] [place] [address]- 4955 Nov, [facility] [place] [facility] [address] [id number] [place] [address]- 8094 Nov, [facility] [place] [facility] [address] [id number] [place] [address]- 8391 Oct, [facility] [place] [facility] [address] [id number] [place] [address]- 8859 Oct, [facility] [place] [facility] [address] [id number] [place] [address]- 5813 Oct, [facility] [place] [facility] [address] [id number] [place] [address]- 3408 Oct, [facility] [place] [facility] [address] [id number] [place] [address]- 5317 Oct, [facility] [place] [facility] [address] [id number] [place] [address]- 5025 Oct, [facility] [place] [facility] [address] [id number] [place] [address]- 4933 Oct, [facility] [place] [facility] [address] [id number] [place] [address]- 1498 Oct, [facility] [place] [facility] [address] [id number] [place] [address]- 6560 Sep, [facility] [place] [facility] [address] [id number] [place] [address]- 6929 Sep, [facility] [place] [facility] [address] [id number] [place] [address]- 0888 14 Sep, 2013 [facility] [place] [facility] [address] [id number] [place] [address]- 7559 14 Sep, 2013 [facility] [place] [facility] [address] [id number] [place] [address]- 2425 07 Sep, 2013 [facility] [place] [facility] [address] [id number] [place] [address]- 5856 Sep, [facility] [place] [facility] [address] [id number] [place] [address]- 0830 04 Sep, 2013 [facility] [place] [facility] [address] [id number] [place] [address]- 7256 Sep, [facility] [place] [facility] [address] [id number] [place] [address]- 1408 Aug, [facility] [place] [facility] [address] [id number] [place] [address]- 5308 Aug, [facility] [place] [facility] [address] [id number] [place] [address]- 7584 Aug, [facility] [place] [facility] [address] [id number] [place] [address]- 0233 Jul, [facility] [place] [facility] [address] [id number] [place] [address]- 2357 Jun, [facility] [place] [facility] [address] [id number] [place] [address]- 7737 Jun, [facility] [place] [facility] [address] [id number] [place] [address]- 8807 Jun, [facility] [place] [facility] [address] [id number] [place] [address]- 4764 Jun, [facility] [place] [facility] [address] [id number] [place] [address]- 2688 Jun, [facility] [place] [facility] [address] [id number] [place] [address]- 2546 May, [facility] [place] [facility] [address] [id number] [place] [address]- 8754 May, [facility] [address] [id number] [place] [address]- 0478 Apr, [facility] [place] [facility] [address] [id number] [place] [address]- 8974 Apr, [facility] [address] [id number] [place] [address]- 7470 March, [facility] [place] [facility] [address] [id number] [place] [address]- 2773 March, [facility] [address] [id number] [place] [address]- 1413 March, [facility] [place] [facility] [address] [id number] [place] [address]- 6376 March, [facility] [address] [id number] [place] [address]- 6738 March, [facility] [address] [id number] [place] [address]- 0178 Feb, [facility] [address] [id number] [place] [address]- 2813 Feb, [facility] [place] [facility] [address] [id number] [place] [address]- 5860 Feb, [facility] [place] [facility] [address] [id number] [place] [address]- 8136 Jan, [facility] [place] [facility] [address] [id number] [place] [address]- 9662 Dec, [facility] [place] [facility] [address] [id number] [place] [address]- 7390 Dec, [facility] [place] [facility] [address] [id number] [place] [address]- 5620 Dec, [facility] [place] [facility] [address] [id number] [place] [address]- 8587 Dec, [facility] [place] [facility] [address] [id number] [place] [address]- 4121 28 Nov, 2012 [facility] [address] [id number] [place] [address]- 2101 24 Nov, 2012 [facility] [place] [facility] [address] [id number] [place] [address]- 5321 Nov, [facility] [address] [id number] [place] [address]- 4855 Nov, [facility] [place] [facility] [address] [id number] [place] [address]- 5128 Oct, [facility] [address] [id number] [place] [address]- 9451 Oct, [facility] [place] [facility] [address] [id number] [place] [address]- 3386 Oct, [facility] [address] [id number] [place] [address]- 7543 Oct, [facility] [address] [id number] [place] [address]- 3859 14 Sep, 2012 [facility] [place] [facility] [address] [id number] [place] [address]- 3420 14 Sep, 2012 [facility] [address] [facility] [id number] [place] [address]- 0702 Sep, [facility] [place] [facility] [address] [id number] [place] [address]- 0990 Sep, [facility] [place] [facility] [address] [id number] [place] [address]- 8630 Sep, [facility] [place] [facility] [address] [id number] [place] [address]- 9665 Sep, [facility] [place] [facility] [address] [id number] [place] [address]- 1282 Aug, [facility] [place] [facility] [address] [id number] [place] [address]- 4301 Aug, [facility] [place] [facility] [address] [id number] [place] [address]- 2546 Aug, [facility] [place] [facility] [address] [id number] [place] [address]- 2546 Jul, [facility] [place] [facility] [address] [id number] [place] [address]- 2546 Jul, [facility] [place] [facility] [address] [id number] [place] [address]- 2546 Jun, [facility] [address] [id number] [place] [address]- 2542 May, [facility] [place] [facility] [address] [id number] [place] [address]- 2546 May, [facility] [address] [id number] [place] [address]- 2546 Apr, [facility] [place] [facility] [address] [id number] [place] [address]- 2546 Apr, [facility] [address] [id number] [place] [address]- 1996 March, [facility] [address] [id number] [place] [address]- 1566 March, [facility] [place] [facility] [address] [id number] [place] [address]- 2546 Feb, [facility] [place] [facility] [address] [id number] [place] [address]- 2546 Feb, [facility] [place] [facility] [address] [id number] [place] [address]- 2546 Feb, [facility] [place] [facility] [address] [id number] [place] [address]- 2546 Feb, [facility] [place] [facility] [address] [id number] [place] [address]- 2546 Jan, [facility] [place] [facility] [address] [id number] [place] [address]- 0924 Jan, [facility] [address] [id number] [place] [address] 2546 29 Dec, 2011 [facility] [place] [facility] [address] [id number] [place] [address] 2546 28 Dec, 2011 [facility] [address] [id number] [place] [address]- 7046 26 Dec, 2011 [facility] [address] [id number] [place] [address] 2546 23 Dec, 2011 [facility] [address] [id number] [place] [address]- 1296 20 Dec, 2011 [facility] [place] [facility] [address] [id number] [place] [address]- 2546 15 Dec, 2011 [facility] [address] [id number] [place] [address]- 0701 10 Dec, 2011 [facility] [address] [id number] [place] [address] 2542 09 Dec, 2011 [facility] [address] [id number] [place] [address]- 0757 08 Dec, 2011 [facility] [address] [id number] [place] [address]- 9588 07 Dec, 2011 [facility] [place] [facility] [address] [id number] [place] [address] 2546 Dec, [facility] [place] [facility] [address] [id number] [place] [address] 2546 Dec, [facility] [place] [facility] [address] [id number] [place] [address]- 9356 Dec, [facility] [place] [facility] [address] [id number] [place] [address] 2546 Nov, [facility] [place] [facility] [address] [id number] [place] [address]- 9290 Nov, [facility] [address] [id number] [place] [address]- 0583 Nov, [facility] [place] [facility] [address] [id number] [place] [address]- 5016 Nov, [facility] [place] [facility] [address] [id number] [place] [address]- 0405 Nov, [facility] [place] [facility] [address] [id number] [place] [address]- 2280 Nov, [facility] [address] [id number] [place] [address]- 2775 Oct, [facility] [place] [facility] [address] [id number] [place] [address]- 6789 Oct, [facility] [place] [facility] [address] [id number] [place] [address]- 4657 Sep, [facility] [place] [facility] [address] [id number] [place] [address]- 5742 Sep, [facility] [place] [facility] [address] [id number] [place] [address]- 8577 Sep, [facility] [place] [facility] [address] [id number] [place] [address]- 9416 Sep, [facility] [place] [facility] [address] [id number] [place] [address]- 8353 Sep, [facility] [place] [facility] [address] [id number] [address]- 1156 March, [facility] [place] [facility] [address] [id number] [place] [address]- 3807 Oct, [facility] [place] [facility] [address] [id number] [place] [address]- 0413 Oct, [facility] [place] [facility] [address] [id number] [place] [address] Oct, [facility] [place] [facility] [address] [id number] [address] 2546 Sep, [facility] [id number] [address]- 1406 Sep, [facility] [id number] [address]- 9236 Sep, [facility] [id number] [address]- 2546 Sep, [facility] [id number], [place] [address] 254 Aug, [facility] [id number] [address]- 8336 Oct, [facility] [id number] [address]- 2546 Oct, [facility] [id number] [address]- 2408 May, IMMUNIZATIONS No Known Immunizations SOCIAL HISTORY Never Assessed REASON FOR VISIT Controlled Med Refill 08/09/17 PLAN OF CARE VITAL SIGNS MEDICATIONS Medication [...]
--- OUTSIDE RECORDS SUMMARY | 2018-12-11 10:49 | XMS REPORT ---
Author Author SANJEEV PHELPS [facility] [employer] Address Unknown Phone Unavailable Care Team Providers Care French Weaver Name Role Phone SANJEEV PHELPS Unavailable Allergies No Known Allergies Problems Problem Type Condition ICD-9 Code Onset Dates Condition Status Assessment Anxiety disorder, unspecified 300.00 Active Problem Urge incontinence 788.31 Active Assessment Unspecified episodic mood disorder 296.90 Active Assessment Unspecified personality disorder 301.9 Active Problem Screening examination for pulmonary tuberculosis [...] patient &/family, 45 minutes, established patient CPT-4 57549 Jul 14, 2015 Results No Known Results Summary Purpose eClinicalWorks Submission
--- OUTSIDE RECORDS SUMMARY | 2018-12-11 10:49 | XMS REPORT ---
Author Author SANJEEV PHELPS [facility] [employer] Address Unknown Phone Unavailable Care Team Providers Care Chief Electrician Name Role Phone SANJEEV PHELPS Unavailable Allergies [...] patient &/family, 30 minutes, established patient CPT-4 51836 Sep 02, 2016 Results No Known Results Summary Purpose eClinicalWorks Submission
--- OUTSIDE RECORDS SUMMARY | 2018-12-11 10:50 | XMS REPORT ---
Author Author SANJEEV PHELPS [facility] Address [address] [place] [address] Care Team Providers Care Casing Cooker Name Role Phone SANJEEV PHELPS Unavailable PROBLEMS Type Condition ICD9-CM Code BVV86-VC Code Onset Dates Condition Status SNOMED Code Problem Stress incontinence of urine N39.3 Active 68000056 Problem Anxiety F41.9 Active 72370698 Problem Anxiety disorder, unspecified F41.9 Active 563734445 Problem Unspecified episodic mood disorder F39 Active 213783069 Problem Unspecified personality disorder F60.9 Active 92329923 ALLERGIES No Information ENCOUNTERS Encounter Location Date Diagnosis [place] [id number] [place] [address] 96509- 9872 Feb, [place] [id number] [place] [address] 84760- 1809 Feb, Unspecified episodic mood disorder F39 ; Anxiety disorder, unspecified F41.9 and Unspecified personality disorder F60.9 [place] [id number] [place] [address] 32291- 4471 Feb, Anxiety disorder, unspecified F41.9 [place] [id number] [place] [address] 90827- 6432 Jan, Unspecified episodic mood disorder F39 ; Anxiety disorder, unspecified F41.9 and Unspecified personality disorder F60.9 [place] [id number] [place] [address] 24531- 7229 Jan, Anxiety F41.9 [place] [id number] [place] [address] 92638- 3032 Jan, Anxiety disorder, unspecified F41.9 [place] [id number] [place] [address] 08924- 2077 Dec, Unspecified episodic mood disorder F39 ; Anxiety disorder, unspecified F41.9 and Unspecified personality disorder F60.9 [facility] [address], [place] [address] 8500 Dec, Anxiety F41.9 [facility] [address], [place] [address] 0167 Dec, Anxiety disorder, unspecified F41.9 [facility] [id number] [place] [address] 95370- 1745 Dec, Unspecified episodic mood disorder F39 ; Anxiety disorder, unspecified F41.9 and Unspecified personality disorder F60.9 [facility] [id number] [place] [address] 50347- 6045 Nov, [facility] [id number] [place] [address] 90744- 9663 Nov, [facility] [id number] [place] [address] 64174- 7411 Nov, Unspecified episodic mood disorder F39 ; Anxiety disorder, unspecified F41.9 and Unspecified personality disorder F60.9 [facility] [address], [place] [address] 0859 Nov, Anxiety disorder, unspecified F41.9 [facility] [id number] [place] [address] 82504- 6635 Oct, Unspecified episodic mood disorder F39 ; Anxiety disorder, unspecified F41.9 and Unspecified personality disorder F60.9 [facility] [id number] [place] [address] 46270- 6395 Oct, Vaginal yeast infection B37.3 [facility] [address], [place] [address] 0499 Oct, [facility] [id number] [place] [address] 41071- 0114 Oct, Anxiety disorder, unspecified F41.9 [place] [id number] [place] [address] 06505- 6121 Oct, Routine gynecological examination Z01.419 ; Screening for breast cancer Z12.31 and Vaginal yeast infection B37.3 [place] [id number] [place] [address] 57076- 6421 Sep, Unspecified episodic mood disorder F39 ; Anxiety disorder, unspecified F41.9 and Unspecified personality disorder F60.9 [place] [id number] [place] [address] 81221- 6014 Sep, [place] [address] 80231- 2163 Sep, Anxiety disorder, unspecified F41.9 [place] [id number] [place] [address] 55982- 4127 Sep, Bronchitis J40 and Stress incontinence of urine N39.3 [place] [address] 78734- 9035 Sep, Stress incontinence of urine N39.3 ; Bronchitis J40 and Anxiety F41.9 [place] [id number] [place] [address] 85013- 3745 Sep, [place] [id number] [place] [address] 30788- 1996 Sep, Unspecified episodic mood disorder F39 ; Anxiety disorder, unspecified F41.9 and Unspecified personality disorder F60.9 [place] [id number] [place] [address] 58379- 0816 Aug, Anxiety F41.9 ; Stress incontinence of urine N39.3 and Encounter for immunization Z23 [place] [id number] [place] [address] 72110- 6532 Aug, Anxiety disorder, unspecified F41.9 [place] [address] 92630- 1824 Jul, Unspecified episodic mood disorder F39 ; Anxiety disorder, unspecified F41.9 and Unspecified personality disorder F60.9 [facility] [address], [place] [address]- 7030 Jul, [facility] [id number] [place] [address] 45296- 7853 Jul, Unspecified episodic mood disorder F39 ; Anxiety disorder, unspecified F41.9 and Unspecified personality disorder F60.9 [facility] [id number] [place] [address] 52567- 6936 Jul, Anxiety disorder, unspecified F41.9 [facility] [id number] [place] [address] 00621- 7302 Jun, Unspecified episodic mood disorder F39 ; Anxiety disorder, unspecified F41.9 and Unspecified personality disorder F60.9 [facility] [address] [place] [address] 76998- 8134 Jun, Anxiety disorder, unspecified F41.9 [facility] [address] [place] [address] 58283- 2685 Jun, Unspecified episodic mood disorder F39 ; Anxiety disorder, unspecified F41.9 and Unspecified personality disorder F60.9 [facility] [address], [place] [address]- 3120 Jun, [facility] [id number] [place] [address] 84231- 1310 May, Anxiety disorder, unspecified F41.9 [facility] [address] [place] [address] 51206- 1703 May, Unspecified episodic mood disorder F39 ; Anxiety disorder, unspecified F41.9 and Unspecified personality disorder F60.9 [facility] [address], [place] [address]- 3827 Apr, Anxiety disorder, unspecified F41.9 [facility] [address], [place] [address]- 7535 March, Unspecified episodic mood disorder F39 ; Anxiety disorder, unspecified F41.9 and Unspecified personality disorder F60.9 [facility] [id number] [place] [address] 87801- 1599 March, Bronchitis J40 [facility] [id number] [place] [address] 14402- 1888 March, Unspecified episodic mood disorder F39 ; Anxiety disorder, unspecified F41.9 and Unspecified personality disorder F60.9 [facility] [id number] [place] [address] 03920- 3116 Feb, [facility] [id number] [place] [address] 89289- 8542 Feb, Unspecified episodic mood disorder F39 ; Anxiety disorder, unspecified F41.9 and Unspecified personality disorder F60.9 [facility] [id number] [place] [address] 77146- 2809 Feb, Bronchitis J40 [facility] [id number] [place] [address] 51335- 9118 Feb, Unspecified episodic mood disorder F39 ; Anxiety disorder, unspecified F41.9 and Unspecified personality disorder F60.9 [facility] [address] [place] [address] 53749- 9241 Jan, Unspecified episodic mood disorder F39 ; Anxiety disorder, unspecified F41.9 and Unspecified personality disorder F60.9 [facility] [address] [place] [address] 19413- 6545 Jan, Bronchitis J40 [facility] [address] [place] [address] 50454- 6943 Jan, Unspecified episodic mood disorder F39 ; Anxiety disorder, unspecified F41.9 and Unspecified personality disorder F60.9 [facility] [id number] [place] [address] 17442- 8213 Dec, Anxiety F41.9 [facility] [address], [place] [address]- 3729 Dec, Unspecified episodic mood disorder F39 ; Anxiety disorder, unspecified F41.9 and Unspecified personality disorder F60.9 [facility] [id number] [address] Dec, [facility] [address] [place] [address] 24015- 1619 Dec, Unspecified episodic mood disorder F39 ; Anxiety disorder, unspecified F41.9 and Unspecified personality disorder F60.9 [facility] [id number] [place] [address] 75124- 4284 Nov, [facility] [address], [place] [address]- 9410 Oct, Unspecified episodic mood disorder F39 ; Anxiety disorder, unspecified F41.9 and Unspecified personality disorder F60.9 [facility] [address], [place] [address]- 1189 Oct, [facility] [address], [place] [address] Oct, Acute upper respiratory infection, unspecified J06.9 ; Other viral agents as the cause of diseases classified elsewhere B97.89 and Cough R05 [facility] [address], [place] [address]- 1667 Aug, Unspecified episodic mood disorder F39 ; Anxiety disorder, unspecified F41.9 and Unspecified personality disorder F60.9 [facility] [address], [place] [address]- 2928 Aug, [facility] [address], [place] [address]- 6731 Aug, [facility] [address], [place] [address]- 1424 Aug, [facility] [address], [place] [address]- 9456 Aug, Visit for TB skin test Z11.1 [facility] [address], [place] [address]- 5906 Jul, [facility] [address], [place] [address]- 6973 Jul, [facility] [address], [place] [address]- 2220 Jul, [facility] [address], [place] [address]- 8001 Jul, [facility] [address], [place] [address]- 1238 Jul, [facility] [address], [place] [address]- 4764 Jul, Unspecified episodic mood disorder F39 ; Anxiety disorder, unspecified F41.9 and Unspecified personality disorder F60.9 [facility] [address], [place] [address]- 4539 Jun, [facility] [address], [place] [address]- 9575 Jun, Unspecified episodic mood disorder F39 ; Anxiety disorder, unspecified F41.9 and Unspecified personality disorder F60.9 [facility] [address], [place] [address]- 8630 Jun, [facility] [id number] [address]- 2100 May, Unspecified episodic mood disorder F39 ; Anxiety disorder, unspecified F41.9 and Unspecified personality disorder F60.9 [facility] [address], [place] [address]- 6186 May, [facility] [address], [place] [address]- 5365 May, [facility] [address], [place] [address]- 8939 May, Edema, unspecified R60.9 [facility] [address], [place] [address]- 9280 Apr, [facility] [id number] [place] [address] 87764- 9325 Apr, Unspecified episodic mood disorder F39 ; Anxiety disorder, unspecified F41.9 and Unspecified personality disorder F60.9 [facility] [address], [place] [address]- 8901 Apr, Anxiety F41.9 [facility] [id number] [place] [address] 84389- 1076 March, Unspecified episodic mood disorder F39 ; Anxiety disorder, unspecified F41.9 and Unspecified personality disorder F60.9 [facility] [address], [place] [address]- 3509 March, Unspecified episodic mood disorder F39 ; Anxiety disorder, unspecified F41.9 and Unspecified personality disorder F60.9 [facility] [address], [place] [address]- 5144 Feb, Anxiety F41.9 [facility] [address], [place] [address]- 5393 Feb, Unspecified episodic mood disorder F39 ; Anxiety disorder, unspecified F41.9 and Unspecified personality disorder F60.9 [facility] [id number] [address]- 6217 Jan, Unspecified episodic mood disorder F39 ; Anxiety disorder, unspecified F41.9 and Unspecified personality disorder F60.9 [facility] [id number], [place] [address]- 9554 Jan, Unspecified episodic mood disorder F39 ; Anxiety disorder, unspecified F41.9 and Unspecified personality disorder F60.9 [facility] [address], [place] [address]- 5193 Jan, Edema, unspecified R60.9 [facility] [id number] [place] [address] 55853- 2833 Dec, [facility] [id number] [place] [address] 17452- 1804 Dec, [facility] [id number] [place] [address] 76732- 7872 Dec, [facility] [id number] [place] [address] 63994- 7599 Dec, Unspecified episodic mood disorder F39 ; Anxiety disorder, unspecified F41.9 and Unspecified personality disorder F60.9 [place] [id number] [place] [address] 34182- 0204 Nov, [facility] [id number] [place] [address] 43631- 8096 Nov, Unspecified episodic mood disorder F39 ; Anxiety disorder, unspecified F41.9 and Unspecified personality disorder F60.9 [place] [address] [place] [address] 52502- 1192 Oct, Unspecified episodic mood disorder F39 ; Anxiety disorder, unspecified F41.9 and Unspecified personality disorder F60.9 [place] [address] [place] [address] 65105- 6114 Oct, Unspecified episodic mood disorder F39 ; Anxiety disorder, unspecified F41.9 and Unspecified personality disorder F60.9 [place] [address] [place] [address] 91140- 3131 Sep, Unspecified episodic mood disorder F39 ; Anxiety disorder, unspecified F41.9 and Unspecified personality disorder F60.9 [facility] [address] [place] [address] 43090- 4607 Sep, Encounter for immunization Z23 [facility] [address], [place] [address]- 8132 Sep, Edema of left lower extremity R60.0 [facility] [id number] [place] [address] 93044- 4593 Aug, Unspecified episodic mood disorder F39 ; Anxiety disorder, unspecified F41.9 and Unspecified personality disorder F60.9 [facility] [id number] [place] [address] 92879- 1268 Aug, [facility] [id number] [place] [address] 13297- 4446 Aug, Edema of left lower extremity R60.0 [facility] [id number] [place] [address] 77280- 3475 Aug, [facility] [id number] [place] [address] 55766- 9598 Aug, Unspecified episodic mood disorder F39 ; Anxiety disorder, unspecified F41.9 and Unspecified personality disorder F60.9 [facility] [address] [place] [address] 42384- 4002 Jul, Unspecified episodic mood disorder 296.90 ; Anxiety disorder , unspecified 300.00 and Unspecified personality disorder 301.9 [facility] [address], [place] [address]- 4425 Jul, Unspecified episodic mood disorder 296.90 ; Anxiety disorder , unspecified 300.00 and Unspecified personality disorder 301.9 [facility] [address], [place] [address]- 9011 Jul, [facility] [id number] [place] [address] 81669- 8203 Jun, Unspecified episodic mood disorder 296.90 ; Anxiety disorder , unspecified 300.00 and Unspecified personality disorder 301.9 [facility] [address], [place] [address]- 5188 May, Unspecified episodic mood disorder 296.90 ; Anxiety disorder , unspecified 300.00 and Unspecified personality disorder 301.9 [facility] [address], [place] [address]- 7839 May, Anxiety disorder, unspecified 300.00 [facility] [address], [place] [address]- 6300 May, Anxiety disorder, unspecified 300.00 and Edema 782.3 [facility] [id number] [place] [address] 86589- 6798 May, Unspecified episodic mood disorder 296.90 ; Anxiety disorder , unspecified 300.00 and Unspecified personality disorder 301.9 [facility] [id number] [place] [address] 42757- 5000 Apr, [facility] [id number] [place] [address] 25197- 9201 Apr, Unspecified episodic mood disorder 296.90 ; Anxiety disorder , unspecified 300.00 and Personality disorder, unspecified 301.9 [facility] [id number] [place] [address] 22158- 3138 Apr, Unspecified episodic mood disorder 296.90 ; Anxiety disorder , unspecified 300.00 and Unspecified personality disorder 301.9 [facility] [address], [place] [address]- 9144 March, [facility] [id number] [place] [address] 12102- 0259 March, Unspecified episodic mood disorder 296.90 ; Anxiety disorder , unspecified 300.00 and Unspecified personality disorder 301.9 [facility] [id number] [place] [address] 38696- 3977 March, Unspecified episodic mood disorder 296.90 ; Anxiety disorder 300.00 and Unspecified personality disorder 301.9 [facility] [address], [place] [address]- 3650 March, [facility] [id number] [address]- 2546 March, [facility] [place] [facility] [address] [id number] [place] [address]- 0836 29 Feb, 2015 [facility] [place] [facility] [address] [id number] [place] [address]- 1186 Feb, [facility] [place] [facility] [address] [id number] [place] [address]- 2546 Feb, [facility] [place] [facility] [address] [id number] [place] [address]- 8586 30 Jan, 2015 [facility] [place] [facility] [address] [id number] [place] [address]- 5374 30 Jan, 2015 [facility] [place] [facility] [address] [id number] [place] [address]- 2546 Jan, [facility] [place] [facility] [address] [facility] [id number] [place] [address]- 0797 Jan, [facility] [place] [facility] [address] [id number] [place] [address]- 8957 Jan, [facility] [place] [facility] [address] [facility] [id number] [place] [address]- 0908 Jan, [facility] [place] [facility] [address] [facility] [id number] [place] [address] Jan, [facility] [place] [facility] [address] [id number] [place] [address]- 8341 Jan, [facility] [place] [facility] [address] [id number] [place] [address]- 2541 Jan, [facility] [place] [facility] [address] [id number] [place] [address]- 5933 Jan, [facility] [place] [facility] [address] [id number] [place] [address]- 7786 Jan, [facility] [place] [facility] [address] [facility] [id number] [place] [address]- 9426 Jan, [facility] [place] [facility] [address] [id number] [place] [address]- 2197 Jan, 2014 [facility] [place] [facility] [address] [id number] [place] [address]- 6203 Jan, 2014 [facility] [place] [facility] [address] [id number] [place] [address]- 1554 Jan, 2014 [facility] [place] [facility] [address] [id number] [place] [address]- 8108 Jan, 2014 [facility] [place] [facility] [address] [id number] [place] [address]- 6627 Dec, 2014 [facility] [place] [facility] [address] [id number] [place] [address]- 9549 Dec, 2014 [facility] [place] [facility] [address] [facility] [id number] [place] [address]- 3647 Dec, 2014 [facility] [place] [facility] [address] [id number] [place] [address]- 4701 Dec, 2014 [facility] [place] [facility] [address] [facility] [id number] [place] [address]- 5706 Nov, [facility] [place] [facility] [address] [facility] [id number] [place] [address]- 3451 Nov, [facility] [place] [facility] [address] [facility] [id number] [place] [address]- 0500 Nov, [facility] [place] [facility] [address] [id number] [address]- 6459 Nov, [facility] [place] [facility] [address] [id number] [place] [address]- 4629 Oct, [facility] [place] [facility] [address] [id number] [place] 8292 Oct, [facility] [place] [facility] [address] [facility] [id number] [place] [address]- 2755 Oct, [facility] [place] [facility] [address] [id number] [place] [address]- 6742 Oct, [facility] [place] [facility] [address] [id number] [place] [address]- 8244 Oct, [facility] [place] [facility] [address] [id number] [place] [address]- 9057 Oct, [facility] [place] [facility] [address] [id number] [place] [address]- 5512 Oct, [facility] [place] [facility] [address] [id number] [place] [address]- 3159 Oct, [facility] [place] [facility] [address] [id number] [place] [address]- 3732 Oct, [facility] [place] [facility] [address] [id number] [place] [address]- 7277 Oct, [facility] [place] [facility] [address] [id number] [place] [address] Oct, [facility] [place] [facility] [address] [id number] [place] [address] Oct, [facility] [place] [facility] [address] [id number] [place] [address] Oct, [facility] [place] [facility] [address] [id number] [place] [address] Oct, [facility] [place] [facility] [address] [id number] [place] [address] Oct, [facility] [place] [facility] [address] [id number] [place] [address] Oct, [facility] [place] [facility] [address] [id number] [place] [address] Sep, [facility] [place] [facility] [address] [id number] [place] [address] Sep, [facility] [place] [facility] [address] [id number] [place] [address] Sep, [facility] [place] [facility] [address] [id number] [place] [address] Sep, [facility] [place] [facility] [address] [id number] [place] [address] Sep, [facility] [place] [facility] [address] [id number] [place] [address] Sep, [facility] [place] [facility] [address] [id number] [place] [address] Sep, [facility] [place] [facility] [address] [id number] [place] [address] Sep, [facility] [place] [facility] [address] [id number] [place] [address] Sep, [facility] [place] [facility] [address] [id number] [place] [address] Sep, [facility] [place] [facility] [address] [id number] [place] [address] Aug, [facility] [place] [facility] [address] [id number] [place] [address] 30 Aug, 2014 [facility] [place] [facility] [address] [id number] [place] [address] Aug, [facility] [place] [facility] [address] [id number] [place] [address] Aug, [facility] [facility] [address] [id number] [place] [address] Aug, [facility] [place] [facility] [address] [id number] [place] [address] Aug, [facility] [place] [facility] [address] [id number] [place] [address] Aug, [facility] [place] [facility] [address] [id number] [place] [address] Aug, [facility] [place] [facility] [address] [id number] [place] [address] Jul, [facility] [place] [facility] [address] [id number] [place] [address]- [address] Jul, 2013 [facility] [place] [facility] [address] [id number] [place] [address] Jul, [facility] [place] [facility] [address] [id number] [place] [address]- 0718 Jul, 2013 [facility] [place] [facility] [address] [id number] [place] [address]- [address] Jul, 2013 [facility] [place] [facility] [address] [id number] [place] [address] Jul, [facility] [place] [facility] [address] [id number] [place] [address]- [address] Jun, [facility] [place] [facility] [address] [id number] [place] [address]- 0266 Jun, [facility] [place] [facility] [address] [id number] [place] [address] 8935 May, [facility] [place] [address] [id number] [place] [address] 4353 May, [facility] [place] [facility] [address] [id number] [place] [address]- 1706 May, [facility] [place] [address] [id number] [place] [address]- 3588 May, [facility] [address] [id number], [place] [address] May, [facility] [place] [address] [id number] [place] [address]- 6566 May, [facility] [place] [facility] [address] [id number] [place] [address]- 5703 May, [facility] [place] [address] [id number] [place] [address]- 9825 May, [facility] [place] [address] [id number] [place] [address]- 1769 Apr, [facility] [place] [address] [id number] [place] [address]- 3524 Apr, [facility] [address] [id number] [place] [address]- 2630 March, [facility] [address] [id number] [place] [address]- 9118 March, [facility] [place] [address] [id number] [place] [address]- 2438 Feb, [facility] [address] [id number] [place] [address]- 8390 Feb, [facility] [address] [id number] [place] [address]- 3250 Feb, [facility] [address] [id number] [place] [address]- 8125 Feb, [facility] [address] [id number] [place] [address]- 9833 Feb, [facility] [address] [id number] [place] [address]- 9471 Feb, [facility] [place] [address] [id number] [place] [address]- 4541 Feb, [facility] [address] [id number] [place] [address]- 6843 Feb, [facility] [address] [id number] [place] [address]- 8474 Feb, [facility] [address] [id number] [place] [address]- 1766 Feb, [facility] [address] [id number] [place] [address]- 8420 Jan, [facility] [address] [id number] [place] [address]- 8938 Jan, [facility] [address] [id number] [place] [address]- 9833 Jan, [facility] [address] [id number] [place] [address]- 3858 Jan, [facility] [address] [id number] [place] [address]- 0931 Jan, [facility] [address] [id number] [place] [address]- 0416 Dec, [facility] [address] [id number] [place] [address]- 9427 Dec, [facility] [address] [id number] [place] [address]- 0154 Dec, [facility] [address] [id number] [place] [address]- 6879 Dec, [facility] [address] [id number] [place] [address]- 8944 Dec, [facility] [address] [id number] [place] [address]- 9651 Dec, [facility] [address] [id number] [place] [address]- 7954 Nov, [facility] [address] [id number] [place] [address]- 5443 Nov, [facility] [address] [id number] [place] [address]- 0237 Nov, [facility] [address] [id number] [place] [address]- 7753 Nov, [facility] [address] [id number] [place] [address]- 2592 Nov, [facility] [address] [id number] [place] [address]- 7932 Nov, [facility] [address] [id number], [place] [address] Nov, [facility] [address] [id number] [place] [address]- 1658 Nov, [facility] [address] [id number] [place] [address]- 9191 Oct, [facility] [address] [facility] [id number] [place] [address] Oct, [facility] [address] [id number] [place] [address]- 3447 Oct, [facility] [address] [id number] [place] [address]- 4030 Oct, [facility] [address] [id number] [place] [address]- 8345 Oct, [facility] [address] [id number] [address] 0919 Oct, [facility] [address] [id number] [place] [address]- 9399 Oct, [facility] [address] [facility] [id number] [place] [address]- 4076 Oct, [facility] [address] [facility] [id number] [place] [address]- 2362 Sep, [facility] [address] [id number], [place] [address]- 2028 Sep, [facility] [address] [id number], [place] [address]- 9482 Sep, [facility] [address] [id number], [place] [address]- 3[address] 14 Sep, 2013 [facility] [address] [facility] [id number], [place] [address]- 9991 07 Sep, 2013 [facility] [address] [facility] [id number], [place] [address]- 1823 07 Sep, 2013 [facility] [address] [id number] [place] [address]- 2546 Sep, [facility] [address] [id number] [place] [address]- 9117 Sep, [facility] [address] [id number] [place] [address] 2546 Aug, [facility] [address] [id number] [place] [address]- 4520 Aug, [facility] [address] [id number] [place] [address]- 0922 Aug, [facility] [address] [id number] [place] [address]- 6542 Jul, [facility] [address] [id number] [place] [address]- 2339 Jun, [facility] [address] [id number] [place] [address]- 0312 Jun, [facility] [address] [id number] [place] [address]- 5558 Jun, [facility] [address] [id number] [place] [address]- 6756 Jun, [facility] [address] [id number] [place] [address]- 1299 Jun, [facility] [address] [id number] [place] [address]- 3247 May, [facility] [address] [id number] [place] [address]- 2549 May, [facility] [address] [id number] [place] [address]- 9646 Apr, [facility] [address] [id number] [place] [address]- 2546 Apr, [facility] [address] [id number] [place] [address]- 9780 March, [facility] [address] [id number] [place] [address]- 7529 March, [facility] [address] [id number] [place] [address]- 3497 March, [facility] [address] [id number] [place] [address] March, [facility] [address] [id number] [place] [address]- 0650 March, [facility] [address] [id number] [place] [address]- 3428 Feb, [facility] [address] [id number] [place] [address]- 3080 Feb, [facility] [address] [id number] [place] [address]- 1061 Feb, [facility] [address] [id number] [place] [address]- 5599 Jan, [facility] [address] [id number] [place] [address]- 6956 Dec, [facility] [address] [id number] [place] [address]- 9596 Dec, [facility] [address] [id number] [place] [address]- 5503 Dec, [facility] [address] [id number] [place] [address]- 5313 Dec, [facility] [address] [id number] [place] [address]- 6839 Nov, [facility] [address] [id number] [place] [address]- 0843 Nov, [facility] [address] [id number] [place] [address]- 2851 Nov, [facility] [address] [id number] [place] [address]- 0113 Nov, [facility] [address] [id number] [place] [address]- 2611 Oct, [facility] [address] [id number] [place] [address]- 3448 Oct, [facility] [address] [id number] [place] [address]- 7496 Oct, [facility] [address] [id number] [place] [address]- 1708 Oct, [facility] [address] [id number] [place] [address]- 5382 Sep, [facility] [address] [id number] [place] [address]- 8748 Sep, [facility] [address] [id number] [place] [address]- 8587 Sep, [facility] [address] [id number] [place] [address]- 6920 Sep, [facility] [address] [id number] [place] [address]- 5505 Sep, [facility] [address] [id number] [place] [address]- 4279 Sep, [facility] [address] [id number] [place] [address]- 6105 Aug, [facility] [address] [id number] [place] [address]- 0409 Aug, [facility] [address] [id number] [place] [address]- 2058 Aug, [facility] [address] [id number] [place] [address]- 6396 Jul, [facility] [address] [id number] [place] [address]- 7702 Jul, [facility] [address] [id number] [place] [address]- 0733 Jun, [facility] [address] [id number] [place] [address]- 8776 May, [facility] [address] [id number] [place] [address]- 1126 May, [facility] [address] [id number] [place] [address]- 4966 Apr, [facility] [address] [id number] [place] [address]- 7396 Apr, [facility] [address] [id number] [place] [address]- 7606 March, [facility] [address] [id number] [place] [address]- 4706 March, [facility] [address] [id number] [place] [address]- 0055 Feb, [facility] [address] [id number] [place] [address]- 7455 Feb, [facility] [address] [id number] [place] [address]- 7295 Feb, [facility] [address] [id number] [place] [address]- 4416 Feb, [facility] [address] [id number] [place] [address]- 3184 Jan, [facility] [address] [id number] [place] [address]- 8309 Jan, [facility] [address] [id number] [place] [address]- 0446 Dec, [facility] [address] [id number] [place] [address]- 4014 Dec, [facility] [address] [id number] [place] [address]- 8206 26 Dec, 2011 [facility] [address] [id number] [place] [address]- 4746 23 Dec, 2011 [facility] [place] [address] [id number] [place] [address] 2546 20 Dec, 2011 [facility] [address] [id number] [place] [address] 2546 15 Dec, 2011 [facility] [address] [id number] [place] [address] 2546 10 Dec, 2011 [facility] [place] [address] [id number] [place] [address]- 6946 09 Dec, 2011 [facility] [address] [id number] [place] [address] 2546 08 Dec, 2011 [facility] [address] [id number] [place] [address] 2546 07 Dec, 2011 [facility] [place] [address] [id number] [place] [address]- 5559 02 Dec, 2011 [facility] [address] [id number] [place] [address]- 4585 02 Dec, 2011 [facility] [address] [facility] [id number] [place] [address]- 5586 02 Dec, 2011 [facility] [address] [id number] [place] [address] 2546 Nov, [facility] [address] [id number] [place] [address] 2546 Nov, [facility] [address] [id number] [place] [address] 2546 Nov, [facility] [place] [address] [id number] [place] [address] 2546 Nov, [facility] [place] [facility] [address] [id number] [place] [address]- 8605 Nov, [facility] [place] [facility] [address] [id number] [place] [address]- 8202 Nov, [facility] [place] [facility] [address] [id number] [place] [address]- 7690 Oct, [facility] [place] [facility] [address] [id number] [place] [address]- 7061 Oct, [facility] [place] [facility] [address] [id number] [place] [address]- 3419 Sep, [facility] [place] [facility] [address] [id number] [place] [address]- 1285 Sep, [facility] [place] [facility] [address] [id number] [place] [address]- 6898 Sep, [facility] [place] [facility] [address] [id number] [place] [address]- 1507 Sep, [facility] [place] [facility] [address] [id number] [place] [address]- 0823 Sep, [facility] [place] [facility] [address] [id number] [place] [address]- 5579 March, [facility] [place] [facility] [address] [id number] [place] [address]- 3389 Oct, [facility] [place] [facility] [address] [id number], [place] [address]- 2814 Oct, [facility] [place] [facility] [address] [id number], [place] [address]- 3460 Oct, [facility] [place] [facility] [address] [id number] [place] [address]- 1385 Sep, [facility] [place] [facility] [address] [id number] [place] [address]- 6793 Sep, [facility] [place] [facility] [address] [id number] [place] [address]- 3762 Sep, [facility] [place] [facility] [address] [facility] [id number] [place] [address]- 2546 Sep, [facility] [address] [facility] [id number], [place] [address]- 2546 Aug, [facility] [address] [id number], [place] [address]- 2546 Oct, [facility] [address] [facility] [id number], [place] [address]- 2546 Oct, [facility] [address] [facility] [id number], [place] [address]- 2546 May, IMMUNIZATIONS No Known Immunizations SOCIAL HISTORY Never Assessed REASON FOR VISIT f/u PLAN OF CARE Activity Details Follow Up Next available Reason: F/U VITAL SIGNS MEDICATIONS Unknown Medications RESULTS No Results PROCEDURES Procedure Date Ordered Result Body Site Psychotherapy, patient &/family, 45 minutes, established patient Jul 12, 2017 INSTRUCTIONS MEDICATIONS ADMINISTERED No Known Medications MEDICAL (GENERAL) HISTORY Type Description Date Medical History hypertension Medical History panic attacks Surgical History cholecystectomy 2009 Hospitalization History surgery
--- OUTSIDE RECORDS SUMMARY | 2018-12-11 10:51 | XMS REPORT ---
Author Author LEIDA ANDINO Organization [facility] Address [address] [place] [address] Care Team Providers Care Floor Finisher Name Role Phone LEIDA ANDINO Unavailable PROBLEMS Type Condition ICD9-CM Code [id number] Code Onset Dates Condition Status SNOMED Code Problem Stress incontinence of urine N39.3 Active 59707439 Problem Anxiety F41.9 Active 07340463 Problem Anxiety disorder, unspecified F41.9 Active 811150037 Problem Unspecified episodic mood disorder F39 Active 888442680 Problem Unspecified personality disorder F60.9 Active [id number] ALLERGIES No Information ENCOUNTERS Encounter Location Date Diagnosis [place] [id number] [place] [address] 06632- 1089 Feb, [facility] [id number] [place] [address] 52509- 9089 Feb, Unspecified episodic mood disorder F39 ; Anxiety disorder, unspecified F41.9 and Unspecified personality disorder F60.9 [place] [id number] [place] [address] 46395- 2415 Feb, Anxiety disorder, unspecified F41.9 [place] [id number] [place] [address] 78774- 0343 Jan, Unspecified episodic mood disorder F39 ; Anxiety disorder, unspecified F41.9 and Unspecified personality disorder F60.9 [place] [id number] [place] [address] 60387- 9727 Jan, Anxiety F41.9 [place] [id number] [place] [address] 74579- 7725 Jan, Anxiety disorder, unspecified F41.9 [place] [id number] [place] [address] 54215- 7261 Dec, Unspecified episodic mood disorder F39 ; Anxiety disorder, unspecified F41.9 and Unspecified personality disorder F60.9 [facility] [id number] [place] [address] 77323- 5958 Dec, Anxiety F41.9 [facility] [address] [address] 1286 Dec, Anxiety disorder, unspecified F41.9 [facility] [id number] [place] [address] 71957- 1939 Dec, Unspecified episodic mood disorder F39 ; Anxiety disorder, unspecified F41.9 and Unspecified personality disorder F60.9 [facility] [id number] [place] [address] 92997- 1771 Nov, [facility] [id number] [place] [address] 44572- 3023 Nov, [facility] [id number] [place] [address] 47634- 1108 Nov, Unspecified episodic mood disorder F39 ; Anxiety disorder, unspecified F41.9 and Unspecified personality disorder F60.9 [facility] [id number] [place] [address] 83580- 1247 Nov, Anxiety disorder, unspecified F41.9 [facility] [id number] [place] [address] 80957- 1757 Oct, Unspecified episodic mood disorder F39 ; Anxiety disorder, unspecified F41.9 and Unspecified personality disorder F60.9 [facility] [id number] [place] [address] 23813- 0099 Oct, Vaginal yeast infection B37.3 [facility] [id number] [place] [address] 36214- 6079 Oct, [facility] [id number] [place] [address] 65753- 7397 Oct, Anxiety disorder, unspecified F41.9 [place] [id number] [place] [address] 68802- 3355 Oct, Routine gynecological examination Z01.419 ; Screening for breast cancer Z12.31 and Vaginal yeast infection B37.3 [place] [id number] [place] [address] 41637- 7408 Sep, Unspecified episodic mood disorder F39 ; Anxiety disorder, unspecified F41.9 and Unspecified personality disorder F60.9 [place] [id number] [place] [address] 90862- 9920 Sep, [place] [address] 44555- 1524 Sep, Anxiety disorder, unspecified F41.9 [place] [id number] [place] [address] 75219- 2226 Sep, Bronchitis J40 and Stress incontinence of urine N39.3 [place] [id number] [place] [address] 61943- 4716 Sep, Stress incontinence of urine N39.3 ; Bronchitis J40 and Anxiety F41.9 [place] [id number] [place] [address] 43452- 5282 Sep, [place] [id number] [place] [address] 95575- 9719 Sep, Unspecified episodic mood disorder F39 ; Anxiety disorder, unspecified F41.9 and Unspecified personality disorder F60.9 [place] [id number] [place] [address] 39674- 9617 Aug, Anxiety F41.9 ; Stress incontinence of urine N39.3 and Encounter for immunization Z23 [place] [id number] [place] [address] 70085- 9646 Aug, Anxiety disorder, unspecified F41.9 [place] [id number] [place] [address] 91542- 4569 Jul, Unspecified episodic mood disorder F39 ; Anxiety disorder, unspecified F41.9 and Unspecified personality disorder F60.9 [facility] [address], [place] [address]- 7620 Jul, [facility] [id number] [address]- 3499 Jul, Unspecified episodic mood disorder F39 ; Anxiety disorder, unspecified F41.9 and Unspecified personality disorder F60.9 [facility] [id number], [place] [address]- 5031 Jul, Anxiety disorder, unspecified F41.9 [facility] [id number] [place] [address] 22566- 4834 Jun, Unspecified episodic mood disorder F39 ; Anxiety disorder, unspecified F41.9 and Unspecified personality disorder F60.9 [facility] [id number] [place] [address] 87669- 6246 Jun, Anxiety disorder, unspecified F41.9 [facility] [id number] [place] [address] 11415- 0140 Jun, Unspecified episodic mood disorder F39 ; Anxiety disorder, unspecified F41.9 and Unspecified personality disorder F60.9 [facility] [address] [address]- 2857 Jun, [facility] [id number] [place] [address] 74486- 7196 May, Anxiety disorder, unspecified F41.9 [facility] [id number] [address]- 5568 May, Unspecified episodic mood disorder F39 ; Anxiety disorder, unspecified F41.9 and Unspecified personality disorder F60.9 [facility] [id number] [address]- 1643 Apr, Anxiety disorder, unspecified F41.9 [facility] [address] [address]- 0156 March, Unspecified episodic mood disorder F39 ; Anxiety disorder, unspecified F41.9 and Unspecified personality disorder F60.9 [facility] [id number] [place] [address] 16196- 5715 March, Bronchitis J40 [facility] [id number] [place] [address] 56981- 7902 March, Unspecified episodic mood disorder F39 ; Anxiety disorder, unspecified F41.9 and Unspecified personality disorder F60.9 [facility] [id number] [place] [address] 33916- 8720 Feb, [facility] [id number] [place] [address] 97606- 5272 Feb, Unspecified episodic mood disorder F39 ; Anxiety disorder, unspecified F41.9 and Unspecified personality disorder F60.9 [facility] [id number] [place] [address] 47965- 5577 Feb, Bronchitis J40 [facility] [id number] [place] [address] 01556- 3120 Feb, Unspecified episodic mood disorder F39 ; Anxiety disorder, unspecified F41.9 and Unspecified personality disorder F60.9 [facility] [address], [place] [address]- 7913 Jan, Unspecified episodic mood disorder F39 ; Anxiety disorder, unspecified F41.9 and Unspecified personality disorder F60.9 [facility] [id number] [place] [address] 17087- 1134 Jan, Bronchitis J40 [facility] [id number] [place] [address] 14395- 5031 Jan, Unspecified episodic mood disorder F39 ; Anxiety disorder, unspecified F41.9 and Unspecified personality disorder F60.9 [facility] [id number] [place] [address] 94223- 6040 Dec, Anxiety F41.9 [facility] [id number] [address]- 4507 Dec, Unspecified episodic mood disorder F39 ; Anxiety disorder, unspecified F41.9 and Unspecified personality disorder F60.9 [facility] [id number] [id number] Dec, [facility] [id number] [place] [address] 45393- 0714 Dec, Unspecified episodic mood disorder F39 ; Anxiety disorder, unspecified F41.9 and Unspecified personality disorder F60.9 [facility] [id number] [place] [address] 98421- 7255 Nov, [facility] [address] [address]- 3621 Oct, Unspecified episodic mood disorder F39 ; Anxiety disorder, unspecified F41.9 and Unspecified personality disorder F60.9 [facility] [address], [place] [address]- 1203 Oct, [facility] [address] [address] -7170 Oct, Acute upper respiratory infection, unspecified J06.9 ; Other viral agents as the cause of diseases classified elsewhere B97.89 and Cough R05 [facility] [address], [place] [address]- 1353 Aug, Unspecified episodic mood disorder F39 ; Anxiety disorder, unspecified F41.9 and Unspecified personality disorder F60.9 [facility] [address], [place] [address]- 7442 Aug, [facility] [address] [address]- 4850 Aug, [facility] [id number], [place] [address]- 7234 Aug, [facility] [address], [place] [address]- 1452 Aug, Visit for TB skin test Z11.1 [facility] [address], [place] [address]- 5336 Jul, [facility] [address], [place] [address]- 6902 Jul, [facility] [id number], [place] [address]- 5256 Jul, [facility] [address], [place] [address]- 1943 Jul, [facility] [address], [place] [address]- 0588 Jul, [facility] [address], [place] [address]- 4211 Jul, Unspecified episodic mood disorder F39 ; Anxiety disorder, unspecified F41.9 and Unspecified personality disorder F60.9 [facility] [address] [address]- 1204 Jun, [facility] [address] [address]- 6322 Jun, Unspecified episodic mood disorder F39 ; Anxiety disorder, unspecified F41.9 and Unspecified personality disorder F60.9 [facility] [address], [place] [address]- 2704 Jun, [facility] [address], [place] [address]- 9760 May, Unspecified episodic mood disorder F39 ; Anxiety disorder, unspecified F41.9 and Unspecified personality disorder F60.9 [facility] [id number], [place] [address]- 5316 May, [facility] [address], [place] [address]- 8838 May, [facility] [address], [place] [address]- 8762 May, Edema, unspecified R60.9 [facility] [address], [place] [address]- 0690 Apr, [facility] [id number] [place] [address] 13463- 6667 Apr, Unspecified episodic mood disorder F39 ; Anxiety disorder, unspecified F41.9 and Unspecified personality disorder F60.9 [facility] [id number] [place] [address] 07996- 9523 Apr, Anxiety F41.9 [facility] [id number] [place] [address] 80810- 6199 March, Unspecified episodic mood disorder F39 ; Anxiety disorder, unspecified F41.9 and Unspecified personality disorder F60.9 [place] [id number] [place] [address] 68324- 6742 March, Unspecified episodic mood disorder F39 ; Anxiety disorder, unspecified F41.9 and Unspecified personality disorder F60.9 [place] [address], [place] [address]- 5745 Feb, Anxiety F41.9 [facility] [address], [place] [address]- 2840 Feb, Unspecified episodic mood disorder F39 ; Anxiety disorder, unspecified F41.9 and Unspecified personality disorder F60.9 [facility] [address], [place] [address]- 3782 Jan, Unspecified episodic mood disorder F39 ; Anxiety disorder, unspecified F41.9 and Unspecified personality disorder F60.9 [facility] [id number], [place] [address]- 3483 Jan, Unspecified episodic mood disorder F39 ; Anxiety disorder, unspecified F41.9 and Unspecified personality disorder F60.9 [facility] [address], [place] [address]- 9352 Jan, Edema, unspecified R60.9 [facility] [id number] [place] [address] 73818- 9085 Dec, [facility] [id number] [place] [address] 81509- 4640 Dec, [facility] [id number] [place] [address] 75390- 6889 Dec, [facility] [id number] [place] [address] 99228- 2384 Dec, Unspecified episodic mood disorder F39 ; Anxiety disorder, unspecified F41.9 and Unspecified personality disorder F60.9 [place] [id number] [place] [address] 69046- 4742 Nov, [facility] [id number] [place] [address] 82867- 1777 Nov, Unspecified episodic mood disorder F39 ; Anxiety disorder, unspecified F41.9 and Unspecified personality disorder F60.9 [place] [id number] [place] [address] 56839- 3096 Oct, Unspecified episodic mood disorder F39 ; Anxiety disorder, unspecified F41.9 and Unspecified personality disorder F60.9 [place] [id number] [place] [address] 32645- 6858 Oct, Unspecified episodic mood disorder F39 ; Anxiety disorder, unspecified F41.9 and Unspecified personality disorder F60.9 [place] [id number] [place] [address] 50613- 4999 Sep, Unspecified episodic mood disorder F39 ; Anxiety disorder, unspecified F41.9 and Unspecified personality disorder F60.9 [facility] [address], [place] [address]- 9378 Sep, Encounter for immunization Z23 [facility] [address], [place] [address]- 5362 Sep, Edema of left lower extremity R60.0 [facility] [address], [place] [address]- 8717 Aug, Unspecified episodic mood disorder F39 ; Anxiety disorder, unspecified F41.9 and Unspecified personality disorder F60.9 [facility] [id number] [place] [address] 70223- 4817 Aug, [facility] [id number] [place] [address] 62008- 6311 Aug, Edema of left lower extremity R60.0 [facility] [id number] [place] [address] 94467- 5815 Aug, [facility] [address], [place] [address]- 2696 Aug, Unspecified episodic mood disorder F39 ; Anxiety disorder, unspecified F41.9 and Unspecified personality disorder F60.9 [facility] [address], [place] [address]- 1607 Jul, Unspecified episodic mood disorder 296.90 ; Anxiety disorder , unspecified 300.00 and Unspecified personality disorder 301.9 [facility] [address], [place] [address]- 8175 Jul, Unspecified episodic mood disorder 296.90 ; Anxiety disorder , unspecified 300.00 and Unspecified personality disorder 301.9 [facility] [address], [place] [address]- 9845 Jul, [facility] [address], [place] [address]- 3536 Jun, Unspecified episodic mood disorder 296.90 ; Anxiety disorder , unspecified 300.00 and Unspecified personality disorder 301.9 [facility] [address], [place] [address]- 2145 May, Unspecified episodic mood disorder 296.90 ; Anxiety disorder , unspecified 300.00 and Unspecified personality disorder 301.9 [facility] [address], [place] [address]- 1768 May, Anxiety disorder, unspecified 300.00 [facility] [id number] [place] [address] 17072- 6046 May, Anxiety disorder, unspecified 300.00 and Edema 782.3 [facility] [id number] [place] [address] 08434- 6755 May, Unspecified episodic mood disorder 296.90 ; Anxiety disorder , unspecified 300.00 and Unspecified personality disorder 301.9 [facility] [id number] [place] [address] 77763- 7682 Apr, [facility] [id number] [place] [address] 47817- 6474 Apr, Unspecified episodic mood disorder 296.90 ; Anxiety disorder , unspecified 300.00 and Personality disorder, unspecified 301.9 [facility] [id number] [place] [address] 13549- 6716 Apr, Unspecified episodic mood disorder 296.90 ; Anxiety disorder , unspecified 300.00 and Unspecified personality disorder 301.9 [facility] [address], [place] [address]- 7495 March, [facility] [id number] [place] [address] 95926- 1722 March, Unspecified episodic mood disorder 296.90 ; Anxiety disorder , unspecified 300.00 and Unspecified personality disorder 301.9 [facility] [id number] [place] [address] 19427- 2446 March, Unspecified episodic mood disorder 296.90 ; Anxiety disorder 300.00 and Unspecified personality disorder 301.9 [facility] [address], [place] [address]- 6938 March, [facility] [id number] [place] [address] 46195- 3526 March, [facility] [place] [facility] [address] [id number] [place] [address]- 8761 Feb, [facility] [place] [facility] [address] [id number] [place] [address]- 9816 Feb, [facility] [place] [facility] [address] [id number] [place] [address]- 9660 Feb, [facility] [place] [facility] [address] [id number] [place] [address]- 5735 Jan, [facility] [place] [facility] [address] [id number] [place] [address]- 3528 Jan, [facility] [place] [facility] [address] [id number] [place] [address]- 6073 Jan, [facility] [place] [facility] [address] [id number] [place] [address]- 6064 Jan, [facility] [place] [facility] [address] [id number] [place] [address]- 3681 Jan, [facility] [place] [facility] [address] [id number] [place] [address]- 9603 Jan, [facility] [place] [facility] [address] [id number] [place] [id number] Jan, [facility] [place] [facility] [address] [id number] [place] [address]- 8423 Jan, [facility] [place] [facility] [address] [id number] [address]- 4043 Jan, [facility] [place] [facility] [address] [id number] [place] [address]- 7505 Jan, [facility] [place] [facility] [address] [id number] [place] [address]- 7101 Jan, [facility] [place] [facility] [address] [id number] [place] [address]- 5660 Jan, [facility] [place] [facility] [address] [id number] [place] [address]- 1124 05 Jan, 2014 [facility] [place] [facility] [address] [id number] [place] [address]- 3205 Jan, 2014 [facility] [place] [facility] [address] [id number] [place] [address]- 3049 Jan, 2014 [facility] [place] [facility] [address] [id number] [place] [address]- 7327 Jan, 2014 [facility] [place] [facility] [address] [id number] [place] [address]- 4833 Dec, 2014 [facility] [place] [facility] [address] [id number] [place] [address]- 2640 Dec, 2014 [facility] [place] [facility] [address] [facility] [id number] [place] [address]- 6350 Dec, 2014 [facility] [place] [facility] [address] [id number] [place] [address]- 3683 Dec, 2014 [facility] [place] [facility] [address] [id number] [place] [address]- 3651 Nov, [facility] [place] [facility] [address] [id number] [place] [address]- 9364 Nov, [facility] [place] [facility] [address] [facility] [id number] [place] [address]- 4164 Nov, [facility] [place] [facility] [address] [id number] [place] [address]- 2932 Nov, [facility] [place] [facility] [address] [id number] [place] [address]- 8281 Oct, [facility] [place] [facility] [address] [id number] [place] [address]- 7305 Oct, [facility] [place] [facility] [address] [facility] [id number] [place] [address]- 9338 Oct, [facility] [place] [facility] [address] [id number] [place] [address]- 6652 Oct, [facility] [place] [facility] [address] [id number] [place] [address]- 7523 Oct, [facility] [place] [facility] [address] [id number] [place] [address]- 2162 Oct, [facility] [place] [facility] [address] [id number] [place] [address]- 2216 Oct, [facility] [place] [facility] [address] [id number] [place] [address]- 6255 Oct, [facility] [place] [facility] [address] [id number] [place] [address]- 1577 Oct, [facility] [place] [facility] [address] [id number] [place] [address]- 8636 Oct, [facility] [place] [facility] [address] [id number] [place] [address] Oct, [facility] [place] [facility] [address] [id number] [place] [address] Oct, [facility] [place] [facility] [address] [id number] [place] [address] Oct, [facility] [place] [facility] [address] [id number] [place] [address] Oct, [facility] [place] [facility] [address] [id number] [place] [address] Oct, [facility] [place] [facility] [address] [id number] [place] [address] Oct, [facility] [place] [facility] [address] [id number] [place] [address] Sep, [facility] [place] [facility] [address] [id number] [place] [address] Sep, [facility] [place] [facility] [address] [id number] [place] [address] Sep, [facility] [place] [facility] [address] [id number] [place] [address] 24 Sep, 2014 [facility] [place] [facility] [address] [id number] [place] [address] Sep, [facility] [place] [facility] [address] [id number] [place] [address]- 6836 Sep, [facility] [place] [facility] [address] [id number] [place] [address] 1947 Sep, [facility] [place] [facility] [address] [id number] [place] [address] 1874 Sep, [facility] [place] [facility] [address] [id number] [place] [address] 2019 Sep, [facility] [place] [facility] [address] [id number] [place] [address]- 2723 Sep, [facility] [place] [facility] [address] [id number] [place] [address] 1304 Aug, [facility] [place] [facility] [address] [id number] [place] [address]- [address]75 30 Aug, 2014 [facility] [place] [facility] [address] [id number] [place] [address] 8788 Aug, [facility] [place] [facility] [address] [facility] [id number] [place] [address]- 5121 Aug, [facility] [place] [facility] [address] [id number] [place] [address]- 9911 Aug, [facility] [place] [facility] [address] [id number], [place] [address] Aug, [facility] [place] [facility] [address] [id number] [place] [address]- 4784 Aug, [facility] [place] [facility] [address] [id number] [place] [address]- 5451 Aug, [facility] [place] [facility] [address] [id number] [place] [address]- 4845 29 Jul, 2014 [facility] [place] [facility] [address] [id number] [place] [address]- 5[address] Jul, [facility] [place] [facility] [address] [id number] [place] [address]- 3607 Jul, [facility] [place] [facility] [address] [id number] [place] [address]- 3120 Jul, [facility] [place] [facility] [address] [id number] [place] [address]- 6459 Jul, [facility] [place] [facility] [address] [id number] [place] [address]- 3215 Jul, [facility] [place] [facility] [address] [id number] [place] [address]- 9077 Jun, [facility] [place] [facility] [address] [id number] [place] [address]- 1996 Jun, [facility] [place] [facility] [address] [id number] [place] [address]- 0321 May, [facility] [place] [facility] [address] [id number] [place] [address]- 9466 May, [facility] [place] [facility] [address] [id number] [place] [address]- 4194 May, [facility] [place] [facility] [address] [id number] [place] [address]- 0039 May, [facility] [place] [facility] [address] [id number] [place] [address]- 5891 May, [facility] [place] [facility] [address] [id number] [place] [address]- 1919 May, [facility] [place] [facility] [address] [id number] [place] [address]- 2680 May, [facility] [place] [facility] [address] [id number] [place] [address]- 5394 May, [facility] [place] [facility] [address] [id number] [place] [address]- 3208 Apr, [facility] [place] [facility] [address] [id number] [place] [address]- 2438 Apr, [facility] [place] [facility] [address] [id number] [place] [address]- 5943 March, [facility] [place] [facility] [address] [id number] [place] [address]- 2429 March, [facility] [place] [facility] [address] [id number] [place] [address]- 9147 Feb, [facility] [place] [facility] [address] [id number] [place] [address]- 4478 Feb, [facility] [place] [facility] [address] [id number] [place] [address]- 9857 Feb, [facility] [place] [facility] [address] [id number] [place] [address]- 1200 Feb, [facility] [place] [facility] [address] [id number] [place] [address]- 5326 Feb, [facility] [place] [facility] [address] [id number] [place] [address]- 6223 Feb, [facility] [place] [facility] [address] [id number] [place] [address]- 3151 Feb, [facility] [place] [facility] [address] [id number] [place] [address]- 1639 Feb, [facility] [place] [facility] [address] [id number] [place] [address]- 7192 Feb, [facility] [place] [facility] [address] [id number] [place] [address]- 9693 Feb, [facility] [place] [facility] [address] [id number] [place] [address]- 0604 Jan, [facility] [place] [facility] [address] [id number] [place] [address]- 6360 Jan, [facility] [place] [facility] [address] [id number] [place] [address]- 1336 Jan, [facility] [place] [facility] [address] [id number] [place] [address]- 1013 Jan, [facility] [place] [facility] [address] [id number] [place] [address]- 6046 Jan, [facility] [place] [facility] [address] [id number] [place] [address]- 0357 Dec, [facility] [place] [facility] [address] [id number] [place] [address]- 7580 Dec, [facility] [place] [facility] [address] [id number] [place] [address]- 3099 Dec, [facility] [place] [facility] [address] [id number] [place] [address]- 2490 Dec, [facility] [place] [facility] [address] [id number] [place] [address]- 4957 Dec, [facility] [place] [facility] [address] [id number] [place] [address]- 1317 Dec, [facility] [place] [facility] [address] [id number] [place] [address]- 1305 Nov, [facility] [place] [facility] [address] [id number] [place] [address]- 1193 Nov, [facility] [place] [facility] [address] [id number] [place] [address]- 1342 Nov, [facility] [place] [facility] [address] [id number] [place] [address]- 9273 Nov, [facility] [place] [facility] [address] [id number] [place] [address]- 3373 Nov, [facility] [place] [facility] [address] [id number] [place] [address]- 5384 Nov, [facility] [place] [facility] [address] [id number] [place] [address]- 2824 Nov, [facility] [place] [facility] [address] [id number] [place] [address]- 6606 Nov, [facility] [place] [facility] [address] [id number] [place] [address]- 0813 Oct, [facility] [place] [facility] [address] [id number] [place] [address]- 0273 Oct, [facility] [place] [facility] [address] [id number] [place] [address]- 5514 Oct, [facility] [place] [facility] [address] [id number] [place] [address]- 8754 Oct, [facility] [place] [facility] [address] [id number] [place] [address]- 8718 Oct, [facility] [place] [facility] [address] [id number] [place] [address]- 2537 Oct, [facility] [place] [facility] [address] [id number] [place] [address]- 0967 Oct, [facility] [place] [facility] [address] [id number] [place] [address]- 8885 Oct, [facility] [place] [facility] [address] [id number] [place] [address]- 5463 Sep, [facility] [place] [facility] [address] [id number], [place] [address]- 5161 Sep, [facility] [place] [facility] [address] [id number], [place] [address]- 7144 Sep, [facility] [place] [facility] [address] [id number] [place] [address]- 0912 Sep, [facility] [place] [facility] [address] [id number], [place] [address]- 2293 Sep, [facility] [place] [facility] [address] [id number], [place] [address]- 9063 Sep, [facility] [place] [facility] [address] [id number] [place] [address]- 3293 Sep, [facility] [address] [id number] [place] [address]- 9735 Sep, [facility] [place] [facility] [address] [id number] [place] [address]- 2640 Aug, [facility] [place] [facility] [address] [id number] [place] [address]- 7425 Aug, [facility] [place] [facility] [address] [id number] [place] [address] 2542 Aug, [facility] [place] [facility] [address] [id number] [place] [address]- 2569 Jul, [facility] [place] [facility] [address] [id number] [place] [address]- 9260 Jun, [facility] [place] [facility] [address] [id number] [place] [address]- 1533 Jun, [facility] [place] [facility] [address] [id number] [place] [address]- 1333 Jun, [facility] [place] [facility] [address] [id number] [place] [address]- 4147 Jun, [facility] [place] [facility] [address] [id number] [place] [address]- 1256 Jun, [facility] [place] [facility] [address] [id number] [place] [address]- 8918 May, [facility] [place] [facility] [address] [id number] [place] [address]- 2547 May, [facility] [place] [facility] [address] [id number] [place] [address]- 4874 Apr, [facility] [place] [facility] [address] [id number] [place] [address]- 2546 Apr, [facility] [place] [facility] [address] [id number] [place] [address]- 3184 March, [facility] [address] [id number] [place] [address]- 0866 March, [facility] [address] [id number] [place] [address]- 0223 March, [facility] [address] [id number] [place] [address]- 4986 March, [facility] [address] [id number] [place] [address]- 7101 March, [facility] [address] [id number] [place] [address]- 9861 Feb, [facility] [address] [id number] [place] [address]- 0874 Feb, [facility] [address] [id number] [place] [address]- 4757 Feb, [facility] [address] [id number] [place] [address]- 1146 Jan, [facility] [address] [id number] [place] [address]- 9922 Dec, [facility] [address] [id number] [place] [address]- 3033 Dec, [facility] [address] [id number] [place] [address]- 7541 Dec, [facility] [address] [id number] [place] [address]- 9570 Dec, [facility] [place] [facility] [address] [id number] [place] [address]- 2157 Nov, [facility] [place] [facility] [address] [id number] [place] [address]- 9982 Nov, [facility] [place] [facility] [address] [id number] [place] [address]- 4777 Nov, [facility] [place] [facility] [address] [id number] [place] [address]- 7955 Nov, [facility] [place] [facility] [address] [id number] [place] [address]- 4941 Oct, [facility] [place] [facility] [address] [id number] [place] [address]- 1324 Oct, [facility] [place] [facility] [address] [id number] [place] [address]- 2564 Oct, [facility] [place] [facility] [address] [id number] [place] [address]- 5780 Oct, [facility] [place] [facility] [address] [id number] [place] [address]- 8674 Sep, [facility] [place] [facility] [address] [id number] [place] [address]- 2434 14 Sep, 2012 [facility] [place] [facility] [address] [id number] [place] [address]- 2516 Sep, [facility] [place] [facility] [address] [id number] [place] [address]- 6961 Sep, [facility] [place] [facility] [address] [id number] [place] [address]- 3575 Sep, [facility] [place] [facility] [address] [facility] [id number] [place] [address]- 4126 Sep, [facility] [place] [facility] [address] [id number] [place] [address]- 8265 Aug, [facility] [place] [facility] [address] [id number], [place] [address]- 9173 Aug, [facility] [place] [facility] [address] [id number] [place] [address]- 3709 Aug, [facility] [place] [facility] [address] [id number] [place] [address]- 7057 Jul, [facility] [place] [facility] [address] [facility] [id number], [place] [address]- 0865 04 Jul, 2012 [facility] [place] [facility] [address] [id number] [place] [address]- 0396 Jun, [facility] [place] [facility] [address] [id number] [place] [address]- 8110 May, [facility] [place] [facility] [address] [id number] [place] [address]- 6540 May, [facility] [place] [facility] [address] [id number] [place] [address]- 0636 Apr, [facility] [place] [facility] [address] [id number] [place] [address]- 1103 Apr, [facility] [place] [facility] [address] [id number] [place] [address]- 5386 March, [facility] [place] [facility] [address] [id number] [place] [address]- 3449 March, [facility] [place] [facility] [address] [id number] [place] [address]- 7117 Feb, [facility] [place] [facility] [address] [id number] [place] [address]- 8511 Feb, [facility] [place] [facility] [address] [id number] [place] [address]- 0943 Feb, [facility] [place] [facility] [address] [id number] [place] [address]- 8240 Feb, [facility] [place] [facility] [address] [id number] [place] [address]- 0796 Jan, [facility] [place] [facility] [address] [id number] [place] [address]- 7896 Jan, [facility] [place] [facility] [address] [id number] [place] [address]- 0206 Dec, [facility] [place] [facility] [address] [id number] [place] [address]- 4199 Dec, [facility] [place] [facility] [address] [id number] [place] [address]- 4754 26 Dec, 2011 [facility] [address] [id number] [place] [address]- 8576 Dec, [facility] [place] [facility] [address] [id number] [place] [address] 2546 20 Dec, 2011 [facility] [address] [id number] [place] [address]- 9366 15 Dec, 2011 [facility] [address] [id number] [place] [address]- 0646 10 Dec, 2011 [facility] [address] [id number] [place] [address]- 5816 09 Dec, 2011 [facility] [address] [id number] [place] [address]- 2546 08 Dec, 2011 [facility] [address] [id number] [place] [address]- 3299 07 Dec, 2011 [facility] [address] [id number] [place] [address]- 5527 02 Dec, 2011 [facility] [address] [id number] [place] [address]- 4785 02 Dec, 2011 [facility] [address] [id number] [place] [address]- 5203 02 Dec, 2011 [facility] [address] [id number] [place] [address] 2546 Nov, [facility] [address] [id number] [place] [address] 2541 Nov, [facility] [place] [facility] [address] [id number] [place] [address]- 8766 Nov, [facility] [place] [facility] [address] [id number] [place] [address]- 0186 Nov, [facility] [place] [facility] [address] [facility] [id number] [place] [address]- 9119 Nov, [facility] [address] [id number] [place] [address]- 2528 Nov, [facility] [place] [facility] [address] [id number] [place] [address]- 8468 Oct, [facility] [place] [facility] [address] [id number] [place] [address]- 9009 Oct, [facility] [place] [facility] [address] [id number] [place] [address]- 4529 Sep, [facility] [place] [facility] [address] [id number] [place] [address]- 8451 Sep, [facility] [place] [facility] [address] [id number] [place] [address]- 5024 Sep, [facility] [place] [facility] [address] [id number] [place] [address]- 8738 Sep, [facility] [place] [facility] [address] [id number] [place] [address]- 7172 Sep, [facility] [place] [facility] [address] [id number] [place] [address]- 7410 March, [facility] [place] [facility] [address] [id number] [place] [address]- 4890 Oct, [facility] [place] [facility] [address] [id number] [place] [address]- 2626 Oct, [facility] [place] [facility] [address] [id number], [place] [address]- 8971 Oct, [facility] [place] [facility] [address] [id number] [place] [address]- 5959 Sep, [facility] [place] [facility] [address] [id number] [place] [address]- 7486 Sep, [facility] [place] [facility] [address] [id number], [place] [address]- 0773 Sep, [facility] [place] [facility] [address] [id number], [place] [address]- 2546 Sep, [facility] [address] [facility] [id number], [place] [address]- 2546 Aug, [facility] [address] [id number], [place] [address]- 2546 Oct, [facility] [address] [facility] [id number], [place] [address]- 2546 Oct, [facility] [address] [facility] [id number], [place] [address]- 2546 May, IMMUNIZATIONS No Known Immunizations SOCIAL [...]
--- OUTSIDE RECORDS SUMMARY | 2018-12-11 10:53 | XMS REPORT | Continuity of Care Document ---
Author Author [facility] Address Unknown Phone Unavailable Allergies Active Description Code Type Severity Reaction Onset Reported/Identified Relationship to Patient Clinical Status Yes No Known Drug Allergies [id number] Drug Allergy Unknown N/A 12/06/2018 Medications There is no data. Problems Date Dx Coded Attending Type Code Diagnosis Diagnosed By 11/05/2008 SANJEEV PHELPS PHD V58.69 MEDICATION HIGH RISK 11/05/2008 V58.69 MEDICATION HIGH RISK 11/05/2008 SANJEEV PHELPS PHD V58.69 MEDICATION HIGH RISK 11/05/2008 SANJEEV PHELPS PHD V58.69 MEDICATION HIGH RISK 11/05/2008 SANJEEV PHELPS PHD V58.69 MEDICATION HIGH RISK 11/05/2008 V58.69 MEDICATION HIGH RISK 11/05/2008 V58.69 MEDICATION HIGH RISK 11/05/2008 V58.69 MEDICATION HIGH RISK 11/05/2008 V58.69 MEDICATION HIGH RISK 11/05/2008 V58.69 MEDICATION HIGH RISK 11/05/2008 V58.69 MEDICATION HIGH RISK 11/05/2008 V58.69 MEDICATION HIGH RISK 11/05/2008 V58.69 MEDICATION HIGH RISK 11/05/2008 V58.69 MEDICATION HIGH RISK 11/05/2008 SANJEEV PHELPS PHD V58.69 MEDICATION HIGH RISK 11/05/2008 SANJEEV PHELPS PHD V58.69 MEDICATION HIGH RISK 11/05/2008 BETHANY MARSHALL DO V58.69 MEDICATION HIGH RISK 11/05/2008 SANJEEV PHELPS PHD V58.69 MEDICATION HIGH RISK 11/05/2008 SANJEEV PHELPS PHD V58.69 MEDICATION HIGH RISK 11/05/2008 SANJEEV PHELPS PHD V58.69 MEDICATION HIGH RISK 11/05/2008 LEIDA ANDINO APRN V58.69 MEDICATION HIGH RISK 11/05/2008 SANJEEV PHELPS PHD V58.69 MEDICATION HIGH RISK 11/05/2008 BOEGERONIMO PHD, SANJEEV A V58.69 MEDICATION HIGH RISK 11/05/2008 BOEGERONIMO PHD, SANJEEV A V58.69 MEDICATION HIGH RISK 11/05/2008 THU SINGH, LEIDA T V58.69 MEDICATION HIGH RISK 11/05/2008 BOEGERONIMO PHD, SANJEEV A V58.69 MEDICATION HIGH RISK 11/05/2008 BOEGERONIMO PHD, SANJEEV A V58.69 MEDICATION HIGH RISK 11/05/2008 BOESRAVANTHIOUT PHD, SANJEEV A V58.69 MEDICATION HIGH RISK 11/05/2008 BOESRAVANTHIOUT PHD, SANJEEV A V58.69 MEDICATION HIGH RISK 11/05/2008 BOESRAVANTHIOUT PHD, SAJNEEV A V58.69 MEDICATION HIGH RISK 11/05/2008 BOEGERONIMO PHD, SANJEEV A V58.69 MEDICATION HIGH RISK 11/05/2008 BOEGERONIMO PHD, SANJEEV A V58.69 MEDICATION HIGH RISK 11/05/2008 BOEGERONIMO PHD, SANJEEV A V58.69 MEDICATION HIGH RISK 11/05/2008 BOEGERONIMO PHD, SANJEEV A V58.69 MEDICATION HIGH RISK 11/05/2008 THU SINGH, LEIDA T V58.69 MEDICATION HIGH RISK 11/05/2008 THU SINGH, LEIDA T V58.69 MEDICATION HIGH RISK 11/05/2008 BOEGERONIMO PHD, SANJEEV A V58.69 MEDICATION HIGH RISK 11/05/2008 BOEGERONIMO PHD, SANJEEV A V58.69 MEDICATION HIGH RISK 11/05/2008 BOEGERONIMO PHD, SANJEEV A V58.69 MEDICATION HIGH RISK 11/05/2008 LENIN PHD, SANJEEV A V58.69 MEDICATION HIGH RISK 11/05/2008 LENIN PHD, SANJEEV A V58.69 MEDICATION HIGH RISK 11/27/2008 SANJEEV PHELPS PHD 241.0 NONTOXIC AUTONOMOUS THYROID NODULE 11/27/2008 LENIN SMALL, SANJEEV Cm 278.01 OBESITY MORBID 11/27/2008 LENIN SMALL, SANJEEV Cm 296.90 EPISODIC MOOD DISORDERS 11/27/2008 LENIN SMALL, SANJEEV Cm 300.00 ANXIETY DISORDER NOS 11/27/2008 LENIN SMALL, SANJEEV Cm 300.02 GENERALIZED ANXIETY DISORDER 11/27/2008 LENIN SMALL, SANJEEV Cm 493.92 ASTHMA WITH ACUTE EXACERBATION 11/27/2008 SANJEEV PHELPS PHD 625.6 FEMALE STRESS INCONTINENCE 11/27/2008 241.0 NONTOXIC AUTONOMOUS THYROID NODULE 11/27/2008 278.01 OBESITY MORBID 11/27/2008 296.90 EPISODIC MOOD DISORDERS 11/27/2008 300.00 ANXIETY DISORDER NOS 11/27/2008 300.02 GENERALIZED ANXIETY DISORDER 11/27/2008 493.92 ASTHMA WITH ACUTE EXACERBATION 11/27/2008 625.6 FEMALE STRESS INCONTINENCE 11/27/2008 SANJEEV PHELPS PHD 241.0 NONTOXIC AUTONOMOUS THYROID NODULE 11/27/2008 SANJEEV PHELPS PHD 278.01 OBESITY MORBID 11/27/2008 SANJEEV PHELPS PHD 296.90 EPISODIC MOOD DISORDERS 11/27/2008 SANJEEV PHELPS PHD 300.00 ANXIETY DISORDER NOS 11/27/2008 SANJEEV PHELPS PHD 300.02 GENERALIZED ANXIETY DISORDER 11/27/2008 SANJEEV PHELPS PHD 493.92 ASTHMA WITH ACUTE EXACERBATION 11/27/2008 SANJEEV PHELPS PHD 625.6 FEMALE STRESS INCONTINENCE 11/27/2008 SANJEEV PHELPS PHD 241.0 NONTOXIC AUTONOMOUS THYROID NODULE 11/27/2008 SANJEEV PEHLPS PHD 278.01 OBESITY MORBID 11/27/2008 SANJEEV PHELPS PHD 296.90 EPISODIC MOOD DISORDERS 11/27/2008 SANJEEV PHELPS PHD 300.00 ANXIETY DISORDER NOS 11/27/2008 SANJEEV PHELPS PHD 300.02 GENERALIZED ANXIETY DISORDER 11/27/2008 SANJEEV PHELPS PHD 493.92 ASTHMA WITH ACUTE EXACERBATION 11/27/2008 SANJEEV PHELPS PHD 625.6 FEMALE STRESS INCONTINENCE 11/27/2008 SANJEEV PHELPS PHD 241.0 NONTOXIC AUTONOMOUS THYROID NODULE 11/27/2008 SANJEEV PHELPS PHD 278.01 OBESITY MORBID 11/27/2008 SANJEEV PHELPS PHD 296.90 EPISODIC MOOD DISORDERS 11/27/2008 SANJEEV PHELPS PHD 300.00 ANXIETY DISORDER NOS 11/27/2008 SANJEEV PHELPS PHD 300.02 GENERALIZED ANXIETY DISORDER 11/27/2008 SANJEEV PHELPS PHD 493.92 ASTHMA WITH ACUTE EXACERBATION 11/27/2008 SANJEEV PHELPS PHD 625.6 FEMALE STRESS INCONTINENCE 11/27/2008 241.0 NONTOXIC AUTONOMOUS THYROID NODULE 11/27/2008 278.01 OBESITY MORBID 11/27/2008 296.90 EPISODIC MOOD DISORDERS 11/27/2008 300.00 ANXIETY DISORDER NOS 11/27/2008 300.02 GENERALIZED ANXIETY DISORDER 11/27/2008 493.92 ASTHMA WITH ACUTE EXACERBATION 11/27/2008 625.6 FEMALE STRESS INCONTINENCE 11/27/2008 241.0 NONTOXIC AUTONOMOUS THYROID NODULE 11/27/2008 278.01 OBESITY MORBID 11/27/2008 296.90 EPISODIC MOOD DISORDERS 11/27/2008 300.00 ANXIETY DISORDER NOS 11/27/2008 300.02 GENERALIZED ANXIETY DISORDER 11/27/2008 493.92 ASTHMA WITH ACUTE EXACERBATION 11/27/2008 625.6 FEMALE STRESS INCONTINENCE 11/27/2008 241.0 NONTOXIC AUTONOMOUS THYROID NODULE 11/27/2008 278.01 OBESITY MORBID 11/27/2008 296.90 EPISODIC MOOD DISORDERS 11/27/2008 300.00 ANXIETY DISORDER NOS 11/27/2008 300.02 GENERALIZED ANXIETY DISORDER 11/27/2008 493.92 ASTHMA WITH ACUTE EXACERBATION 11/27/2008 625.6 FEMALE STRESS INCONTINENCE 11/27/2008 241.0 NONTOXIC AUTONOMOUS THYROID NODULE 11/27/2008 278.01 OBESITY MORBID 11/27/2008 296.90 EPISODIC MOOD DISORDERS 11/27/2008 300.00 ANXIETY DISORDER NOS 11/27/2008 300.02 GENERALIZED ANXIETY DISORDER 11/27/2008 493.92 ASTHMA WITH ACUTE EXACERBATION 11/27/2008 625.6 FEMALE STRESS INCONTINENCE 11/27/2008 241.0 NONTOXIC AUTONOMOUS THYROID NODULE 11/27/2008 278.01 OBESITY MORBID 11/27/2008 296.90 EPISODIC MOOD DISORDERS 11/27/2008 300.00 ANXIETY DISORDER NOS 11/27/2008 300.02 GENERALIZED ANXIETY DISORDER 11/27/2008 493.92 ASTHMA WITH ACUTE EXACERBATION 11/27/2008 625.6 FEMALE STRESS INCONTINENCE 11/27/2008 241.0 NONTOXIC AUTONOMOUS THYROID NODULE 11/27/2008 278.01 OBESITY MORBID 11/27/2008 296.90 EPISODIC MOOD DISORDERS 11/27/2008 300.00 ANXIETY DISORDER NOS 11/27/2008 300.02 GENERALIZED ANXIETY DISORDER 11/27/2008 493.92 ASTHMA WITH ACUTE EXACERBATION 11/27/2008 625.6 FEMALE STRESS INCONTINENCE 11/27/2008 241.0 NONTOXIC AUTONOMOUS THYROID NODULE 11/27/2008 278.01 OBESITY MORBID 11/27/2008 296.90 EPISODIC MOOD DISORDERS 11/27/2008 300.00 ANXIETY DISORDER NOS 11/27/2008 300.02 GENERALIZED ANXIETY DISORDER 11/27/2008 493.92 ASTHMA WITH ACUTE EXACERBATION 11/27/2008 625.6 FEMALE STRESS INCONTINENCE 11/27/2008 241.0 NONTOXIC AUTONOMOUS THYROID NODULE 11/27/2008 278.01 OBESITY MORBID 11/27/2008 296.90 EPISODIC MOOD DISORDERS 11/27/2008 300.00 ANXIETY DISORDER NOS 11/27/2008 300.02 GENERALIZED ANXIETY DISORDER 11/27/2008 493.92 ASTHMA WITH ACUTE EXACERBATION 11/27/2008 625.6 FEMALE STRESS INCONTINENCE 11/27/2008 241.0 NONTOXIC AUTONOMOUS THYROID NODULE 11/27/2008 278.01 OBESITY MORBID 11/27/2008 296.90 EPISODIC MOOD DISORDERS 11/27/2008 300.00 ANXIETY DISORDER NOS 11/27/2008 300.02 GENERALIZED ANXIETY DISORDER 11/27/2008 493.92 ASTHMA WITH ACUTE EXACERBATION 11/27/2008 625.6 FEMALE STRESS INCONTINENCE 11/27/2008 SANJEEV PHELPS PHD 241.0 NONTOXIC AUTONOMOUS THYROID NODULE 11/27/2008 SANJEEV PHELPS PHD 278.01 OBESITY MORBID 11/27/2008 SANJEEV PHELPS PHD 296.90 EPISODIC MOOD DISORDERS 11/27/2008 SANJEEV PHELPS PHD 300.00 ANXIETY DISORDER NOS 11/27/2008 SANJEEV PHELPS PHD 300.02 GENERALIZED ANXIETY DISORDER 11/27/2008 SANJEEV PHELPS PHD 493.92 ASTHMA WITH ACUTE EXACERBATION 11/27/2008 SANJEEV PHELPS PHD 625.6 FEMALE STRESS INCONTINENCE 11/27/2008 SANJEEV PHELPS PHD 241.0 NONTOXIC AUTONOMOUS THYROID NODULE 11/27/2008 SANJEEV PHELPS PHD 278.01 OBESITY MORBID 11/27/2008 SANJEEV PHELPS PHD 296.90 EPISODIC MOOD DISORDERS 11/27/2008 SANJEEV PHELPS PHD 300.00 ANXIETY DISORDER NOS 11/27/2008 SANJEEV PHELPS PHD 300.02 GENERALIZED ANXIETY DISORDER 11/27/2008 SANJEEV PHELPS PHD 493.92 ASTHMA WITH ACUTE EXACERBATION 11/27/2008 SANJEEV PHELPS PHD 625.6 FEMALE STRESS INCONTINENCE 11/27/2008 BETHANY MARSHALL DO 241.0 NONTOXIC AUTONOMOUS THYROID NODULE 11/27/2008 MARSHALL DO, BETHANY K 278.01 OBESITY MORBID 11/27/2008 MARSHALL DO BETHANY K 296.90 EPISODIC MOOD DISORDERS 11/27/2008 MARSHALL DO, BETHANY K 300.00 ANXIETY DISORDER NOS 11/27/2008 MARSHALL DO, BETHANY K 300.02 GENERALIZED ANXIETY DISORDER 11/27/2008 MARSHALL DO BETHANY K 493.92 ASTHMA WITH ACUTE EXACERBATION 11/27/2008 MARSHALL DOLEAHA K 625.6 FEMALE STRESS INCONTINENCE 11/27/2008 SANJEEV PHELPS PHD 241.0 NONTOXIC AUTONOMOUS THYROID NODULE 11/27/2008 SANJEEV PHELPS PHD 278.01 OBESITY MORBID 11/27/2008 SANJEEV PHELPS PHD 296.90 EPISODIC MOOD DISORDERS 11/27/2008 SANJEEV PHELPS PHD 300.00 ANXIETY DISORDER NOS 11/27/2008 SANJEEV PHELPS PHD 300.02 GENERALIZED ANXIETY DISORDER 11/27/2008 SANJEEV PHELPS PHD 493.92 ASTHMA WITH ACUTE EXACERBATION 11/27/2008 SANJEEV PHELPS PHD 625.6 FEMALE STRESS INCONTINENCE 11/27/2008 SANJEEV PHELPS PHD 241.0 NONTOXIC AUTONOMOUS THYROID NODULE 11/27/2008 SANJEEV PHELPS PHD 278.01 OBESITY MORBID 11/27/2008 SANJEEV PHELPS PHD 296.90 EPISODIC MOOD DISORDERS 11/27/2008 SANJEEV PHELPS PHD 300.00 ANXIETY DISORDER NOS 11/27/2008 SANJEEV PHELPS PHD 300.02 GENERALIZED ANXIETY DISORDER 11/27/2008 SANJEEV PHELPS PHD 493.92 ASTHMA WITH ACUTE EXACERBATION 11/27/2008 SANJEEV PHELPS PHD 625.6 FEMALE STRESS INCONTINENCE 11/27/2008 SANJEEV PHELPS PHD 241.0 NONTOXIC AUTONOMOUS THYROID NODULE 11/27/2008 SANJEEV PHELPS PHD 278.01 OBESITY MORBID 11/27/2008 SANJEEV PHELPS PHD 296.90 EPISODIC MOOD DISORDERS 11/27/2008 SANJEEV PHELPS PHD 300.00 ANXIETY DISORDER NOS 11/27/2008 SANJEEV PHELPS PHD 300.02 GENERALIZED ANXIETY DISORDER 11/27/2008 SANJEEV PHELPS PHD 493.92 ASTHMA WITH ACUTE EXACERBATION 11/27/2008 BOEKHOUT PHD, SANJEEV A 625.6 FEMALE STRESS INCONTINENCE 11/27/2008 LEIDA ANDINO APRN 241.0 NONTOXIC AUTONOMOUS THYROID NODULE 11/27/2008 LEIDA ANDINO APRN T 278.01 OBESITY MORBID 11/27/2008 LEIDA ANDINO APRN 296.90 EPISODIC MOOD DISORDERS 11/27/2008 LEIDA ANDINO APRN T 300.00 ANXIETY DISORDER NOS 11/27/2008 THU DAMAGE ASSESSORLEIDA Byrne 300.02 GENERALIZED ANXIETY DISORDER 11/27/2008 LEIDA ANDINO APRN 493.92 ASTHMA WITH ACUTE EXACERBATION 11/27/2008 LEIDA ANDINO APRN 625.6 FEMALE STRESS INCONTINENCE 11/27/2008 SANJEEV PHELPS PHD 241.0 NONTOXIC AUTONOMOUS THYROID NODULE 11/27/2008 SANJEEV PHELPS PHD 278.01 OBESITY MORBID 11/27/2008 SANJEEV PHELPS PHD 296.90 EPISODIC MOOD DISORDERS 11/27/2008 SANJEEV PHELPS PHD 300.00 ANXIETY DISORDER NOS 11/27/2008 SANJEEV PHELPS PHD 300.02 GENERALIZED ANXIETY DISORDER 11/27/2008 SANJEEV PHELPS PHD 493.92 ASTHMA WITH ACUTE EXACERBATION 11/27/2008 SANJEEV PHELPS PHD 625.6 FEMALE STRESS INCONTINENCE 11/27/2008 SANJEEV PHELPS PHD 241.0 NONTOXIC AUTONOMOUS THYROID NODULE 11/27/2008 SANJEEV PHELPS PHD 278.01 OBESITY MORBID 11/27/2008 SANJEEV PHELPS PHD 296.90 EPISODIC MOOD DISORDERS 11/27/2008 SANJEEV PHELPS PHD 300.00 ANXIETY DISORDER NOS 11/27/2008 SANJEEV PHELPS PHD 300.02 GENERALIZED ANXIETY DISORDER 11/27/2008 SANJEEV PHELPS PHD 493.92 ASTHMA WITH ACUTE EXACERBATION 11/27/2008 SANJEEV PHELPS PHD 625.6 FEMALE STRESS INCONTINENCE 11/27/2008 SANJEEV PHELPS PHD 241.0 NONTOXIC AUTONOMOUS THYROID NODULE 11/27/2008 SANJEEV PHELPS PHD 278.01 OBESITY MORBID 11/27/2008 SANJEEV PHELPS PHD 296.90 EPISODIC MOOD DISORDERS 11/27/2008 SANJEEV PHELPS PHD 300.00 ANXIETY DISORDER NOS 11/27/2008 SANJEEV PHELPS PHD 300.02 GENERALIZED ANXIETY DISORDER 11/27/2008 SANJEEV PHELPS PHD 493.92 ASTHMA WITH ACUTE EXACERBATION 11/27/2008 SANJEEV PHELPS PHD A 625.6 FEMALE STRESS INCONTINENCE 11/27/2008 LEIDA ANDINO APRN 241.0 NONTOXIC AUTONOMOUS THYROID NODULE 11/27/2008 LEIDA ANDINO APRN T 278.01 OBESITY MORBID 11/27/2008 LEIDA ANDINO APRN 296.90 EPISODIC MOOD DISORDERS 11/27/2008 LEIDA ANDINO APRN 300.00 ANXIETY DISORDER NOS 11/27/2008 LEIDA ANDINO APRN 300.02 GENERALIZED ANXIETY DISORDER 11/27/2008 LEIDA ANDINO APRN 493.92 ASTHMA WITH ACUTE EXACERBATION 11/27/2008 LEIDA ANDINO APRN 625.6 FEMALE STRESS INCONTINENCE 11/27/2008 SANJEEV PHELPS PHD 241.0 NONTOXIC AUTONOMOUS THYROID NODULE 11/27/2008 SANJEEV PHELPS PHD 278.01 OBESITY MORBID 11/27/2008 SANJEEV PHELPS PHD 296.90 EPISODIC MOOD DISORDERS 11/27/2008 SANJEEV PHELPS PHD 300.00 ANXIETY DISORDER NOS 11/27/2008 SANJEEV PHELPS PHD 300.02 GENERALIZED ANXIETY DISORDER 11/27/2008 SANJEEV PHELPS PHD 493.92 ASTHMA WITH ACUTE EXACERBATION 11/27/2008 SANJEEV PHELPS PHD 625.6 FEMALE STRESS INCONTINENCE 11/27/2008 SANJEEV PHELPS PHD 241.0 NONTOXIC AUTONOMOUS THYROID NODULE 11/27/2008 SANJEEV PHELPS PHD 278.01 OBESITY MORBID 11/27/2008 SANJEEV PHELPS PHD 296.90 EPISODIC MOOD DISORDERS 11/27/2008 SANJEEV PHELPS PHD 300.00 ANXIETY DISORDER NOS 11/27/2008 SANJEEV PHELPS PHD 300.02 GENERALIZED ANXIETY DISORDER 11/27/2008 SANJEEV PHELPS PHD 493.92 ASTHMA WITH ACUTE EXACERBATION 11/27/2008 SANJEEV PHELPS PHD 625.6 FEMALE STRESS INCONTINENCE 11/27/2008 SANJEEV PHELPS PHD 241.0 NONTOXIC AUTONOMOUS THYROID NODULE 11/27/2008 SANJEEV PHELPS PHD 278.01 OBESITY MORBID 11/27/2008 SANJEEV PHELPS PHD A 296.90 EPISODIC MOOD DISORDERS 11/27/2008 SANJEEV PHELPS PHD 300.00 ANXIETY DISORDER NOS 11/27/2008 SANJEEV PHELPS PHD 300.02 GENERALIZED ANXIETY DISORDER 11/27/2008 SANJEEV PHELPS PHD 493.92 ASTHMA WITH ACUTE EXACERBATION 11/27/2008 SANJEEV PHELPS PHD 625.6 FEMALE STRESS INCONTINENCE 11/27/2008 SANJEEV PHELPS PHD 241.0 NONTOXIC AUTONOMOUS THYROID NODULE 11/27/2008 SANJEEV PHELPS PHD 278.01 OBESITY MORBID 11/27/2008 SANJEEV PHELPS PHD 296.90 EPISODIC MOOD DISORDERS 11/27/2008 SANJEEV PHELPS PHD 300.00 ANXIETY DISORDER NOS 11/27/2008 LENIN SMALL, SANJEEV Cm 300.02 GENERALIZED ANXIETY DISORDER 11/27/2008 SANJEEV PHELPS PHD 493.92 ASTHMA WITH ACUTE EXACERBATION 11/27/2008 SANJEEV PHELPS PHD 625.6 FEMALE STRESS INCONTINENCE 11/27/2008 SANJEEV PHELPS PHD 241.0 NONTOXIC AUTONOMOUS THYROID NODULE 11/27/2008 SANJEEV PHELPS PHD 278.01 OBESITY MORBID 11/27/2008 SANJEEV PHELPS PHD 296.90 EPISODIC MOOD DISORDERS 11/27/2008 SANJEEV PHELPS PHD 300.00 ANXIETY DISORDER NOS 11/27/2008 SANJEEV PHELPS PHD 300.02 GENERALIZED ANXIETY DISORDER 11/27/2008 SANJEEV PHELPS PHD 493.92 ASTHMA WITH ACUTE EXACERBATION 11/27/2008 SANJEEV PHELPS PHD 625.6 FEMALE STRESS INCONTINENCE 11/27/2008 SANJEEV PHELPS PHD 241.0 NONTOXIC AUTONOMOUS THYROID NODULE 11/27/2008 SANJEEV PHELPS PHD 278.01 OBESITY MORBID 11/27/2008 SANJEEV PHELPS PHD 296.90 EPISODIC MOOD DISORDERS 11/27/2008 SANJEEV PHELPS PHD 300.00 ANXIETY DISORDER NOS 11/27/2008 SANJEEV PHELPS PHD 300.02 GENERALIZED ANXIETY DISORDER 11/27/2008 SANJEEV PHELPS PHD 493.92 ASTHMA WITH ACUTE EXACERBATION 11/27/2008 SANJEEV PHELPS PHD 625.6 FEMALE STRESS INCONTINENCE 11/27/2008 SANJEEV PHELPS PHD 241.0 NONTOXIC AUTONOMOUS THYROID NODULE 11/27/2008 SANJEEV PHELPS PHD 278.01 OBESITY MORBID 11/27/2008 SANJEEV PHELPS PHD 296.90 EPISODIC MOOD DISORDERS 11/27/2008 SANJEEV PHELPS PHD 300.00 ANXIETY DISORDER NOS 11/27/2008 SANJEEV PHELPS PHD A 300.02 GENERALIZED ANXIETY DISORDER 11/27/2008 SANJEEV PHELPS PHD 493.92 ASTHMA WITH ACUTE EXACERBATION 11/27/2008 SANJEEV PHELPS PHD 625.6 FEMALE STRESS INCONTINENCE 11/27/2008 SANJEEV PHELPS PHD 241.0 NONTOXIC AUTONOMOUS THYROID NODULE 11/27/2008 SANJEEV PHELPS PHD 278.01 OBESITY MORBID 11/27/2008 SANJEEV PHELPS PHD 296.90 EPISODIC MOOD DISORDERS 11/27/2008 SANJEEV PHELPS PHD 300.00 ANXIETY DISORDER NOS 11/27/2008 SANJEEV PHELPS PHD 300.02 GENERALIZED ANXIETY DISORDER 11/27/2008 ASNJEEV PHELPS PHD 493.92 ASTHMA WITH ACUTE EXACERBATION 11/27/2008 SANJEEV PHELPS PHD 625.6 FEMALE STRESS INCONTINENCE 11/27/2008 SANJEEV PHELPS PHD 241.0 NONTOXIC AUTONOMOUS THYROID NODULE 11/27/2008 SANJEEV PHELPS PHD 278.01 OBESITY MORBID 11/27/2008 SANJEEV PHELPS PHD 296.90 EPISODIC MOOD DISORDERS 11/27/2008 SANJEEV PHELPS PHD 300.00 ANXIETY DISORDER NOS 11/27/2008 SANJEEV PHELPS PHD 300.02 GENERALIZED ANXIETY DISORDER 11/27/2008 SANJEEV PHELPS PHD 493.92 ASTHMA WITH ACUTE EXACERBATION 11/27/2008 SANJEEV PHELPS PHD 625.6 FEMALE STRESS INCONTINENCE 11/27/2008 LEIDA ANDINO APRN 241.0 NONTOXIC AUTONOMOUS THYROID NODULE 11/27/2008 LEIDA ANDINO APRN 278.01 OBESITY MORBID 11/27/2008 LEIDA ANDINO APRN 296.90 EPISODIC MOOD DISORDERS 11/27/2008 LEIDA ANDINO APRN 300.00 ANXIETY DISORDER NOS 11/27/2008 LEIDA ANDINO APRN 300.02 GENERALIZED ANXIETY DISORDER 11/27/2008 LEIDA ANDINO APRN 493.92 ASTHMA WITH ACUTE EXACERBATION 11/27/2008 LEIDA ANDINO APRN 625.6 FEMALE STRESS INCONTINENCE 11/27/2008 THU DAMAGE ASSESSOR, LEIDA T 241.0 NONTOXIC AUTONOMOUS THYROID NODULE 11/27/2008 THU JONESN, LEIDA T 278.01 OBESITY MORBID 11/27/2008 THU DAMAGE ASSESSOR, LEIDA T 296.90 EPISODIC MOOD DISORDERS 11/27/2008 THU JONESN, LEIDA T 300.00 ANXIETY DISORDER NOS 11/27/2008 THU JONESN, LEIDA T 300.02 GENERALIZED ANXIETY DISORDER 11/27/2008 THU SINGH, LEIDA T 493.92 ASTHMA WITH ACUTE EXACERBATION 11/27/2008 THU JONESN, LEIDA T 625.6 FEMALE STRESS INCONTINENCE 11/27/2008 SANJEEV PHELPS PHD 241.0 NONTOXIC AUTONOMOUS THYROID NODULE 11/27/2008 SANJEEV PHELPS PHD 278.01 OBESITY MORBID 11/27/2008 SANJEEV PHELPS PHD 296.90 EPISODIC MOOD DISORDERS 11/27/2008 SANJEEV PHELPS PHD 300.00 ANXIETY DISORDER NOS 11/27/2008 SANJEEV PHELPS PHD 300.02 GENERALIZED ANXIETY DISORDER 11/27/2008 SANJEEV PHELPS PHD 493.92 ASTHMA WITH ACUTE EXACERBATION 11/27/2008 SANJEEV PHELPS PHD 625.6 FEMALE STRESS INCONTINENCE 11/27/2008 SANJEEV PHELPS PHD 241.0 NONTOXIC AUTONOMOUS THYROID NODULE 11/27/2008 SANJEEV PHELPS PHD 278.01 OBESITY MORBID 11/27/2008 SANJEEV PHELPS PHD 296.90 EPISODIC MOOD DISORDERS 11/27/2008 SANJEEV PHELPS PHD 300.00 ANXIETY DISORDER NOS 11/27/2008 SANJEEV PHELPS PHD 300.02 GENERALIZED ANXIETY DISORDER 11/27/2008 SANJEEV PHELPS PHD 493.92 ASTHMA WITH ACUTE EXACERBATION 11/27/2008 SANJEEV PHELPS PHD 625.6 FEMALE STRESS INCONTINENCE 11/27/2008 SANJEEV PHELPS PHD 241.0 NONTOXIC AUTONOMOUS THYROID NODULE 11/27/2008 SANJEEV PHELPS PHD 278.01 OBESITY MORBID 11/27/2008 SANJEEV PHELPS PHD 296.90 EPISODIC MOOD DISORDERS 11/27/2008 SANJEEV PHELPS PHD 300.00 ANXIETY DISORDER NOS 11/27/2008 SANJEEV PHELPS PHD 300.02 GENERALIZED ANXIETY DISORDER 11/27/2008 SANJEEV PHELPS PHD 493.92 ASTHMA WITH ACUTE EXACERBATION 11/27/2008 SANJEEV PHELPS PHD 625.6 FEMALE STRESS INCONTINENCE 11/27/2008 SANJEEV PHELPS PHD 241.0 NONTOXIC AUTONOMOUS THYROID NODULE 11/27/2008 SANJEEV PHELPS PHD 278.01 OBESITY MORBID 11/27/2008 SANJEEV PHELPS PHD 296.90 EPISODIC MOOD DISORDERS 11/27/2008 SANJEEV PHELPS PHD 300.00 ANXIETY DISORDER NOS 11/27/2008 SANJEEV PHELPS PHD 300.02 GENERALIZED ANXIETY DISORDER 11/27/2008 SANJEEV PHELPS PHD 493.92 ASTHMA WITH ACUTE EXACERBATION 11/27/2008 SANJEEV PHELPS PHD 625.6 FEMALE STRESS INCONTINENCE 11/27/2008 SANJEEV PHELPS PHD 241.0 NONTOXIC AUTONOMOUS THYROID NODULE 11/27/2008 SANJEEV PHELPS PHD 278.01 OBESITY MORBID 11/27/2008 SANJEEV PHELPS PHD 296.90 EPISODIC MOOD DISORDERS 11/27/2008 SANJEEV PHELPS PHD 300.00 ANXIETY DISORDER NOS 11/27/2008 SANJEEV PHELPS PHD 300.02 GENERALIZED ANXIETY DISORDER 11/27/2008 SANJEEV PHELPS PHD 493.92 ASTHMA WITH ACUTE EXACERBATION 11/27/2008 SANJEEV PHELPS PHD 625.6 FEMALE STRESS INCONTINENCE 01/20/2009 SANJEEV PHELPS PHD 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 01/20/2009 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 01/20/2009 SANJEEV PHELSP PHD 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 01/20/2009 SANJEEV PHELPS PHD 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 01/20/2009 SANJEEV PHELPS PHD 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 01/20/2009 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 01/20/2009 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 01/20/2009 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 01/20/2009 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 01/20/2009 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 01/20/2009 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 01/20/2009 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 01/20/2009 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 01/20/2009 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 01/20/2009 SANJEEV PHELPS PHD 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 01/20/2009 BOESRAVANHTIOUT PHD, SANJEEV A 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 01/20/2009 BETHANY MARSHALL DO 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 01/20/2009 BOEKHOUT PHD, SANJEEV A 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 01/20/2009 BOESRAVANTHIOUT PHD, SANJEEV A 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 01/20/2009 BOEKHOUT PHD, SANJEEV A 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 01/20/2009 LEIDA ANDINO APRN T 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 01/20/2009 BOEKHOUT PHD, SANJEEV A 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 01/20/2009 BOEKHOUT PHD, SANJEEV A 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 01/20/2009 BOESRAVANTHIOUT PHD, SANJEEV A 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 01/20/2009 LEIDA ANDINO APRN T 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 01/20/2009 BOESRAVANTHIOUT PHD, SANJEEV A 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 01/20/2009 BOESRAVANTHIOUT PHD, SANJEEV A 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 01/20/2009 BOESRAVANTHIOUT PHD, SANJEEV A 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 01/20/2009 BOESRAVANTHIOUT PHD, SANJEEV A 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 01/20/2009 BOESRAVANTHIOUT PHD, SANJEEV A 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 01/20/2009 BOESRAVANTHIOUT PHD, SANJEEV A 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 01/20/2009 BOESRAVANTHIOUT PHD, SANJEEV A 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 01/20/2009 BOESRAVANTHIOUT PHD, SANJEEV A 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 01/20/2009 BOESRAVANTHIOUT PHD, SANJEEV A 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 01/20/2009 LEIDA ANDINO APRN T 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 01/20/2009 LEIDA ANDINO APRN T 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 01/20/2009 BOESRAVANTHIOUT PHD, SANJEEV A 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 01/20/2009 BOESRAVANTHIOUT PHD, SANJEEV A 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 01/20/2009 BOESRAVANTHIOUT PHD, SANJEEV A 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 01/20/2009 BOESRAVANTHIOUT PHD, SANJEEV A 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 01/20/2009 BOEKHOUT PHD, SANJEEV A 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 04/08/2009 LENIN PHD, SANJEEV A 278.00 OBESITY UNSPECIFIED 04/08/2009 278.00 OBESITY UNSPECIFIED 04/08/2009 BOEGERONIMO PHD, SANJEEV A 278.00 OBESITY UNSPECIFIED 04/08/2009 BOEGERONIMO PHD, SANJEEV A 278.00 OBESITY UNSPECIFIED 04/08/2009 LENIN PHD, SANJEEV A 278.00 OBESITY UNSPECIFIED 04/08/2009 278.00 OBESITY UNSPECIFIED 04/08/2009 278.00 OBESITY UNSPECIFIED 04/08/2009 278.00 OBESITY UNSPECIFIED 04/08/2009 278.00 OBESITY UNSPECIFIED 04/08/2009 278.00 OBESITY UNSPECIFIED 04/08/2009 278.00 OBESITY UNSPECIFIED 04/08/2009 278.00 OBESITY UNSPECIFIED 04/08/2009 278.00 OBESITY UNSPECIFIED 04/08/2009 278.00 OBESITY UNSPECIFIED 04/08/2009 LENIN PHD, SANJEEV A 278.00 OBESITY UNSPECIFIED 04/08/2009 LENIN PHD, SANJEEV A 278.00 OBESITY UNSPECIFIED 04/08/2009 BETHANY MARSHALL DO 278.00 OBESITY UNSPECIFIED 04/08/2009 LENIN PHD, SANJEEV A 278.00 OBESITY UNSPECIFIED 04/08/2009 LENIN PHD, SANJEEV A 278.00 OBESITY UNSPECIFIED 04/08/2009 LENIN PHD, SANJEEV A 278.00 OBESITY UNSPECIFIED 04/08/2009 LEIDA ANDINO APRN 278.00 OBESITY UNSPECIFIED 04/08/2009 LENIN PHD, SANJEEV A 278.00 OBESITY UNSPECIFIED 04/08/2009 LENIN PHD, SANJEEV A 278.00 OBESITY UNSPECIFIED 04/08/2009 LENIN PHD, SANJEEV A 278.00 OBESITY UNSPECIFIED 04/08/2009 LEIDA ANDINO APRN 278.00 OBESITY UNSPECIFIED 04/08/2009 LENIN PHD, SANJEEV A 278.00 OBESITY UNSPECIFIED 04/08/2009 LENIN PHD, SANJEEV A 278.00 OBESITY UNSPECIFIED 04/08/2009 LENIN PHD, SANJEEV A 278.00 OBESITY UNSPECIFIED 04/08/2009 LENIN PHD, SANJEEV A 278.00 OBESITY UNSPECIFIED 04/08/2009 LENIN PHD, SANJEEV A 278.00 OBESITY UNSPECIFIED 04/08/2009 LENIN PHD, SANJEEV A 278.00 OBESITY UNSPECIFIED 04/08/2009 BOESRAVANTHIOUT PHD, SANJEEV A 278.00 OBESITY UNSPECIFIED 04/08/2009 BOESRAVANTHIOUT PHD, SANJEEV A 278.00 OBESITY UNSPECIFIED 04/08/2009 BOESRAVANTHIOUT PHD, SANJEEV A 278.00 OBESITY UNSPECIFIED 04/08/2009 THU DAMAGE ASSESSOR, LEIDA T 278.00 OBESITY UNSPECIFIED 04/08/2009 THU DAMAGE ASSESSOR, LEIDA T 278.00 OBESITY UNSPECIFIED 04/08/2009 BOEKHOUT PHD, SANJEEV A 278.00 OBESITY UNSPECIFIED 04/08/2009 BOESRAVANTHIOUT PHD, SANJEEV A 278.00 OBESITY UNSPECIFIED 04/08/2009 BOESRAVANTHIOUT PHD, SANJEEV A 278.00 OBESITY UNSPECIFIED 04/08/2009 BOESRAVANTHIOUT PHD, SANJEEV A 278.00 OBESITY UNSPECIFIED 04/08/2009 BOEGERONIMO PHD, SANJEEV A 278.00 OBESITY UNSPECIFIED 05/21/2009 LENIN SMALL, SANJEEV A 401.9 ESSENTIAL HYPERTENSION 05/21/2009 401.9 ESSENTIAL HYPERTENSION 05/21/2009 LENIN SMALL, SANJEEV A 401.9 ESSENTIAL HYPERTENSION 05/21/2009 LENIN SMALL, SANJEEV A 401.9 ESSENTIAL HYPERTENSION 05/21/2009 LENIN SMALL, SANJEEV A 401.9 ESSENTIAL HYPERTENSION 05/21/2009 401.9 ESSENTIAL HYPERTENSION 05/21/2009 401.9 ESSENTIAL HYPERTENSION 05/21/2009 401.9 ESSENTIAL HYPERTENSION 05/21/2009 401.9 ESSENTIAL HYPERTENSION 05/21/2009 401.9 ESSENTIAL HYPERTENSION 05/21/2009 401.9 ESSENTIAL HYPERTENSION 05/21/2009 401.9 ESSENTIAL HYPERTENSION 05/21/2009 401.9 ESSENTIAL HYPERTENSION 05/21/2009 401.9 ESSENTIAL HYPERTENSION 05/21/2009 LENIN SMALL, SANJEEV A 401.9 ESSENTIAL HYPERTENSION 05/21/2009 LENIN SMALL, SANJEEV A 401.9 ESSENTIAL HYPERTENSION 05/21/2009 BETHANY MARSHALL DO 401.9 ESSENTIAL HYPERTENSION 05/21/2009 BOEGERONIMO SMALL, SANJEEV A 401.9 ESSENTIAL HYPERTENSION 05/21/2009 SANJEEV PHELPS PHD A 401.9 ESSENTIAL HYPERTENSION 05/21/2009 LENIN SMALL, SANJEEV A 401.9 ESSENTIAL HYPERTENSION 05/21/2009 LEIDA ANDINO APRN T 401.9 ESSENTIAL HYPERTENSION 05/21/2009 BOEKHOUT PHD, SANJEEV A 401.9 ESSENTIAL HYPERTENSION 05/21/2009 BOEKHOUT PHD, SANJEEV A 401.9 ESSENTIAL HYPERTENSION 05/21/2009 BOEKHOUT PHD, SANJEEV A 401.9 ESSENTIAL HYPERTENSION 05/21/2009 THU SINGH, LEIDA T 401.9 ESSENTIAL HYPERTENSION 05/21/2009 BOEKHOUT PHD, SANJEEV A 401.9 ESSENTIAL HYPERTENSION 05/21/2009 BOEKHOUT PHD, SANJEEV A 401.9 ESSENTIAL HYPERTENSION 05/21/2009 BOEKHOUT PHD, SANJEEV A 401.9 ESSENTIAL HYPERTENSION 05/21/2009 BOEKHOUT PHD, SANJEEV A 401.9 ESSENTIAL HYPERTENSION 05/21/2009 BOEKHOUT PHD, SANJEEV A 401.9 ESSENTIAL HYPERTENSION 05/21/2009 BOEKHOUT PHD, SANJEEV A 401.9 ESSENTIAL HYPERTENSION 05/21/2009 BOEKHOUT PHD, SANJEEV A 401.9 ESSENTIAL HYPERTENSION 05/21/2009 BOEKHOUT PHD, SANJEEV A 401.9 ESSENTIAL HYPERTENSION 05/21/2009 BOEKHOUT PHD, SANJEEV A 401.9 ESSENTIAL HYPERTENSION 05/21/2009 THU SINGH, LEIDA T 401.9 ESSENTIAL HYPERTENSION 05/21/2009 THU SINGH, LEIDA T 401.9 ESSENTIAL HYPERTENSION 05/21/2009 BOEKHOUT PHD, SANJEEV A 401.9 ESSENTIAL HYPERTENSION 05/21/2009 BOESRAVANTHIOUT PHD, SANJEEV A 401.9 ESSENTIAL HYPERTENSION 05/21/2009 BOEKHOUT PHD, SANJEEV A 401.9 ESSENTIAL HYPERTENSION 05/21/2009 BOESRAVANTHIOUT PHD, SANJEEV A 401.9 ESSENTIAL HYPERTENSION 05/21/2009 BOESRAVANTHIOUT PHD, SANJEEV A 401.9 ESSENTIAL HYPERTENSION 12/29/2009 BOEGERONIMO PHD, SANJEEV A 787.02 nausea 12/29/2009 BOEGERONIMO PHD, SANJEEV A 789.00 abdominal pain 12/29/2009 787.02 nausea 12/29/2009 789.00 abdominal pain 12/29/2009 BOEGERONIMO SMALL, SANJEEV Cm 787.02 nausea 12/29/2009 BOEGERONIMO PHD, SANJEEV A 789.00 abdominal pain 12/29/2009 BOEGERONIMO PHD, SANJEEV Cm 787.02 nausea 12/29/2009 BOEGERONIMO PHD, SANJEEV Cm 789.00 abdominal pain 12/29/2009 BOEGERONIMO PHD, SANJEEV Cm 787.02 nausea 12/29/2009 LENIN SMALL, SANJEEV A 789.00 abdominal pain 12/29/2009 787.02 nausea 12/29/2009 789.00 abdominal pain 12/29/2009 787.02 NAUSEA 12/29/2009 789.00 ABDOMINAL PAIN 12/29/2009 787.02 NAUSEA 12/29/2009 789.00 ABDOMINAL PAIN 12/29/2009 787.02 NAUSEA 12/29/2009 789.00 ABDOMINAL PAIN 12/29/2009 787.02 NAUSEA 12/29/2009 789.00 ABDOMINAL PAIN 12/29/2009 787.02 NAUSEA 12/29/2009 789.00 ABDOMINAL PAIN 12/29/2009 787.02 NAUSEA 12/29/2009 789.00 ABDOMINAL PAIN 12/29/2009 787.02 NAUSEA 12/29/2009 789.00 ABDOMINAL PAIN 12/29/2009 787.02 NAUSEA 12/29/2009 789.00 ABDOMINAL PAIN 12/29/2009 LENIN SMALL, SANJEEV Cm 787.02 NAUSEA 12/29/2009 LENIN PHD, SANJEEV A 789.00 ABDOMINAL PAIN 12/29/2009 LENIN PHD, SANJEEV A 787.02 NAUSEA 12/29/2009 LENIN SMALL, SANJEEV A 789.00 ABDOMINAL PAIN 12/29/2009 MARSHALL BETHANY K 787.02 NAUSEA 12/29/2009 MARSHALL BETHANY K 789.00 ABDOMINAL PAIN 12/29/2009 LENIN PHD, SANJEEV A 787.02 NAUSEA 12/29/2009 LENIN PHD, SANJEEV A 789.00 ABDOMINAL PAIN 12/29/2009 LENIN PHD, SANJEEV A 787.02 NAUSEA 12/29/2009 LENIN PHD, SANJEEV A 789.00 ABDOMINAL PAIN 12/29/2009 LENIN SMALL, SANJEEV A 787.02 NAUSEA 12/29/2009 LENIN SMALL, SANJEEV A 789.00 ABDOMINAL PAIN 12/29/2009 LEIDA ANDINO APRN 787.02 NAUSEA 12/29/2009 LEIDA ANDINO APRN 789.00 ABDOMINAL PAIN 12/29/2009 LENIN SMALL, SANJEEV A 787.02 NAUSEA 12/29/2009 LENIN SMALL, SANJEEV A 789.00 ABDOMINAL PAIN 12/29/2009 BOEKHOUT PHD, SANJEEV A 787.02 NAUSEA 12/29/2009 BOEOUT PHD, SANJEEV A 789.00 ABDOMINAL PAIN 12/29/2009 BOEOUT PHD, SANJEEV A 787.02 NAUSEA 12/29/2009 BOEOUT PHD, SANJEEV A 789.00 ABDOMINAL PAIN 12/29/2009 LEIDA ANDINO APRN T 787.02 NAUSEA 12/29/2009 LEIDA ANDINO APRN T 789.00 ABDOMINAL PAIN 12/29/2009 BOEKHOUT PHD, SANJEEV A 787.02 NAUSEA 12/29/2009 BOEOUT PHD, SANJEEV A 789.00 ABDOMINAL PAIN 12/29/2009 BOEOUT PHD, SANJEEV A 787.02 NAUSEA 12/29/2009 BOEOUT PHD, SANJEEV A 789.00 ABDOMINAL PAIN 12/29/2009 BOEOUT PHD, SANJEEV A 787.02 NAUSEA 12/29/2009 [facility] PHD, SANJEEV A 789.00 ABDOMINAL PAIN 12/29/2009 [facility] PHD, SANJEEV A 787.02 NAUSEA 12/29/2009 [facility] PHD, SANJEEV A 789.00 ABDOMINAL PAIN 12/29/2009 [facility] PHD, SANJEEV A 787.02 NAUSEA 12/29/2009 [facility] PHD, SANJEEV A 789.00 ABDOMINAL PAIN 12/29/2009 [facility] PHD, SANJEEV A 787.02 NAUSEA 12/29/2009 [facility] PHD, SANJEEV A 789.00 ABDOMINAL PAIN 12/29/2009 [facility] PHD, SANJEEV A 787.02 NAUSEA 12/29/2009 [facility] PHD, SANJEEV A 789.00 ABDOMINAL PAIN 12/29/2009 BOEOUT PHD, SANJEEV A 787.02 NAUSEA 12/29/2009 [facility] PHD, SANJEEV A 789.00 ABDOMINAL PAIN 12/29/2009 [facility] PHD, SANJEEV A 787.02 NAUSEA 12/29/2009 [facility] PHD, SANJEEV A 789.00 ABDOMINAL PAIN 12/29/2009 LEIDA ANDINO APRN 787.02 NAUSEA 12/29/2009 LEIDA ANDINO APRN 789.00 ABDOMINAL PAIN 12/29/2009 LEIDA ANDINO APRN 787.02 NAUSEA 12/29/2009 LEIDA ANDINO APRN 789.00 ABDOMINAL PAIN 12/29/2009 LENIN PHD, SANJEEV Cm 787.02 NAUSEA 12/29/2009 BOESRAVANTHIOUT PHD, SANJEEV A 789.00 ABDOMINAL PAIN 12/29/2009 BOESRAVANTHIOUT PHD, SANJEEV A 787.02 NAUSEA 12/29/2009 BOESRAVANTHIOUT PHD, SANJEEV A 789.00 ABDOMINAL PAIN 12/29/2009 BOESRAVANTHIOUT PHD, SANJEEV A 787.02 NAUSEA 12/29/2009 BOESRAVANTHIOUT PHD, SANJEEV A 789.00 ABDOMINAL PAIN 12/29/2009 BOESRAVANTHIOUT PHD, SANJEEV A 787.02 NAUSEA 12/29/2009 BOEOUT PHD, SANJEEV A 789.00 ABDOMINAL PAIN 12/29/2009 BOEOUT PHD, SANJEEV Cm 787.02 NAUSEA 12/29/2009 BOEGERONIMO PHD, SANJEEV Cm 789.00 ABDOMINAL PAIN 04/10/2010 SANJEEV PHELPS PHD V68.1 ISSUE OF REPEAT PRESCRIPTIONS 04/10/2010 V68.1 ISSUE OF REPEAT PRESCRIPTIONS 04/10/2010 SANJEEV PHELPS PHD V68.1 ISSUE OF REPEAT PRESCRIPTIONS 04/10/2010 SANJEEV PHELPS PHD V68.1 ISSUE OF REPEAT PRESCRIPTIONS 04/10/2010 SANJEEV PHELPS PHD V68.1 ISSUE OF REPEAT PRESCRIPTIONS 04/10/2010 V68.1 ISSUE OF REPEAT PRESCRIPTIONS 04/10/2010 V68.1 ISSUE OF REPEAT PRESCRIPTIONS 04/10/2010 V68.1 ISSUE OF REPEAT PRESCRIPTIONS 04/10/2010 V68.1 ISSUE OF REPEAT PRESCRIPTIONS 04/10/2010 V68.1 ISSUE OF REPEAT PRESCRIPTIONS 04/10/2010 V68.1 ISSUE OF REPEAT PRESCRIPTIONS 04/10/2010 V68.1 ISSUE OF REPEAT PRESCRIPTIONS 04/10/2010 V68.1 ISSUE OF REPEAT PRESCRIPTIONS 04/10/2010 V68.1 ISSUE OF REPEAT PRESCRIPTIONS 04/10/2010 SANJEEV PHELPS PHD V68.1 ISSUE OF REPEAT PRESCRIPTIONS 04/10/2010 SANJEEV PHELPS PHD V68.1 ISSUE OF REPEAT PRESCRIPTIONS 04/10/2010 BETHANY MARSHALL DO V68.1 ISSUE OF REPEAT PRESCRIPTIONS 04/10/2010 SANJEEV PHELPS PHD V68.1 ISSUE OF REPEAT PRESCRIPTIONS 04/10/2010 SANJEEV PHELPS PHD V68.1 ISSUE OF REPEAT PRESCRIPTIONS 04/10/2010 SANJEEV PHELPS PHD V68.1 ISSUE OF REPEAT PRESCRIPTIONS 04/10/2010 LEIDA ANDINO APRN V68.1 ISSUE OF REPEAT PRESCRIPTIONS 04/10/2010 SANJEEV PHELPS PHD V68.1 ISSUE OF REPEAT PRESCRIPTIONS 04/10/2010 SANJEEV PHELPS PHD V68.1 ISSUE OF REPEAT PRESCRIPTIONS 04/10/2010 SANJEEV PHELPS PHD V68.1 ISSUE OF REPEAT PRESCRIPTIONS 04/10/2010 LEIDA ANDINO APRN V68.1 ISSUE OF REPEAT PRESCRIPTIONS 04/10/2010 SANJEEV PHELPS PHD V68.1 ISSUE OF REPEAT PRESCRIPTIONS 04/10/2010 SANJEEV PHELPS PHD V68.1 ISSUE OF REPEAT PRESCRIPTIONS 04/10/2010 SANJEEV PHELPS PHD V68.1 ISSUE OF REPEAT PRESCRIPTIONS 04/10/2010 SANJEEV PHELPS PHD V68.1 ISSUE OF REPEAT PRESCRIPTIONS 04/10/2010 SANJEEV PHELPS PHD V68.1 ISSUE OF REPEAT PRESCRIPTIONS 04/10/2010 SANJEEV PHELPS PHD V68.1 ISSUE OF REPEAT PRESCRIPTIONS 04/10/2010 SANJEEV PHELPS PHD V68.1 ISSUE OF REPEAT PRESCRIPTIONS 04/10/2010 SANJEEV PHELPS PHD V68.1 ISSUE OF REPEAT PRESCRIPTIONS 04/10/2010 SANJEEV PHELPS PHD V68.1 ISSUE OF REPEAT PRESCRIPTIONS 04/10/2010 LEIDA ANDINO APRN V68.1 ISSUE OF REPEAT PRESCRIPTIONS 04/10/2010 LEIDA ANDINO APRN V68.1 ISSUE OF REPEAT PRESCRIPTIONS 04/10/2010 SANJEEV PHELPS PHD V68.1 ISSUE OF REPEAT PRESCRIPTIONS 04/10/2010 SANJEEV PHELPS PHD V68.1 ISSUE OF REPEAT PRESCRIPTIONS 04/10/2010 SANJEEV PHELPS PHD V68.1 ISSUE OF REPEAT PRESCRIPTIONS 04/10/2010 SANJEEV PHELPS PHD V68.1 ISSUE OF REPEAT PRESCRIPTIONS 04/10/2010 SNAJEEV PHELPS PHD V68.1 ISSUE OF REPEAT PRESCRIPTIONS 08/11/2010 SANJEEV PHELPS PHD 627.1 POSTMENOPAUSAL BLEEDING 08/11/2010 SANJEEV PHELPS PHD V72.31 PATRON ATTENDANT EXAM, ROUTINE 08/11/2010 627.1 POSTMENOPAUSAL BLEEDING 08/11/2010 V72.31 PATRON ATTENDANT EXAM, ROUTINE 08/11/2010 SANJEEV PHELPS PHD 627.1 POSTMENOPAUSAL BLEEDING 08/11/2010 SANJEEV PHELPS PHD V72.31 PATRON ATTENDANT EXAM, ROUTINE 08/11/2010 SANJEEV PHELPS PHD 627.1 POSTMENOPAUSAL BLEEDING 08/11/2010 SANJEEV PHELPS PHD V72.31 PATRON ATTENDANT EXAM, ROUTINE 08/11/2010 SANJEEV PHELPS PHD 627.1 POSTMENOPAUSAL BLEEDING 08/11/2010 SANJEEV PHELPS PHD V72.31 PATRON ATTENDANT EXAM, ROUTINE 08/11/2010 627.1 POSTMENOPAUSAL BLEEDING 08/11/2010 V72.31 PATRON ATTENDANT EXAM, ROUTINE 08/11/2010 627.1 POSTMENOPAUSAL BLEEDING 08/11/2010 V72.31 PATRON ATTENDANT EXAM, ROUTINE 08/11/2010 627.1 POSTMENOPAUSAL BLEEDING 08/11/2010 V72.31 PATRON ATTENDANT EXAM, ROUTINE 08/11/2010 627.1 POSTMENOPAUSAL BLEEDING 08/11/2010 V72.31 PATRON ATTENDANT EXAM, ROUTINE 08/11/2010 627.1 POSTMENOPAUSAL BLEEDING 08/11/2010 V72.31 PATRON ATTENDANT EXAM, ROUTINE 08/11/2010 627.1 POSTMENOPAUSAL BLEEDING 08/11/2010 V72.31 PATRON ATTENDANT EXAM, ROUTINE 08/11/2010 627.1 POSTMENOPAUSAL BLEEDING 08/11/2010 V72.31 PATRON ATTENDANT EXAM, ROUTINE 08/11/2010 627.1 POSTMENOPAUSAL BLEEDING 08/11/2010 V72.31 PATRON ATTENDANT EXAM, ROUTINE 08/11/2010 627.1 POSTMENOPAUSAL BLEEDING 08/11/2010 V72.31 PATRON ATTENDANT EXAM, ROUTINE 08/11/2010 SANJEEV PHELPS PHD 627.1 POSTMENOPAUSAL BLEEDING 08/11/2010 SANJEEV PHELPS PHD V72.31 PATRON ATTENDANT EXAM, ROUTINE 08/11/2010 SANJEEV PHELPS PHD 627.1 POSTMENOPAUSAL BLEEDING 08/11/2010 SANJEEV PHELPS PHD V72.31 PATRON ATTENDANT EXAM, ROUTINE 08/11/2010 MARSHALL DOBETHANY 627.1 POSTMENOPAUSAL BLEEDING 08/11/2010 MARSHALL DOBETHANY V72.31 PATRON ATTENDANT EXAM, ROUTINE 08/11/2010 SANJEEV PHELPS PHD 627.1 POSTMENOPAUSAL BLEEDING 08/11/2010 BOEKHOUT PHD, SANJEEV A V72.31 PATRON ATTENDANT EXAM, ROUTINE 08/11/2010 BOEKHOUT PHD, SANJEEV A 627.1 POSTMENOPAUSAL BLEEDING 08/11/2010 BOEKHOUT PHD, SANJEEV A V72.31 PATRON ATTENDANT EXAM, ROUTINE 08/11/2010 BOEKHOUT PHD, SANJEEV A 627.1 POSTMENOPAUSAL BLEEDING 08/11/2010 BOEKHOUT PHD, SANJEEV A V72.31 PATRON ATTENDANT EXAM, ROUTINE 08/11/2010 LEIDA ANDINO APRN T 627.1 POSTMENOPAUSAL BLEEDING 08/11/2010 LEIDA ANDINO APRN V72.31 PATRON ATTENDANT EXAM, ROUTINE 08/11/2010 BOEKHOUT PHD, SANJEEV A 627.1 POSTMENOPAUSAL BLEEDING 08/11/2010 BOEKHOUT PHD, SANJEEV A V72.31 PATRON ATTENDANT EXAM, ROUTINE 08/11/2010 BOEKHOUT PHD, SANJEEV A 627.1 POSTMENOPAUSAL BLEEDING 08/11/2010 BOEKHOUT PHD, SANJEEV A V72.31 PATRON ATTENDANT EXAM, ROUTINE 08/11/2010 BOEKHOUT PHD, SANJEEV A 627.1 POSTMENOPAUSAL BLEEDING 08/11/2010 BOEKHOUT PHD, SANJEEV A V72.31 PATRON ATTENDANT EXAM, ROUTINE 08/11/2010 LEIDA ANDINO APRN T 627.1 POSTMENOPAUSAL BLEEDING 08/11/2010 LEIDA ANDINO APRN V72.31 PATRON ATTENDANT EXAM, ROUTINE 08/11/2010 BOEKHOUT PHD, SANJEEV A 627.1 POSTMENOPAUSAL BLEEDING 08/11/2010 BOEKHOUT PHD, SANJEEV A V72.31 PATRON ATTENDANT EXAM, ROUTINE 08/11/2010 BOEKHOUT PHD, SANJEEV A 627.1 POSTMENOPAUSAL BLEEDING 08/11/2010 BOEKHOUT PHD, SANJEEV A V72.31 PATRON ATTENDANT EXAM, ROUTINE 08/11/2010 BOEKHOUT PHD, SANJEEV A 627.1 POSTMENOPAUSAL BLEEDING 08/11/2010 BOEKHOUT PHD, SANJEEV A V72.31 PATRON ATTENDANT EXAM, ROUTINE 08/11/2010 BOEKHOUT PHD, SANJEEV A 627.1 POSTMENOPAUSAL BLEEDING 08/11/2010 BOEKHOUT PHD, SANJEEV A V72.31 PATRON ATTENDANT EXAM, ROUTINE 08/11/2010 BOEKHOUT PHD, SANJEEV A 627.1 POSTMENOPAUSAL BLEEDING 08/11/2010 BOEKHOUT PHD, SANJEEV A V72.31 PATRON ATTENDANT EXAM, ROUTINE 08/11/2010 BOEKHOUT PHD, SANJEEV A 627.1 POSTMENOPAUSAL BLEEDING 08/11/2010 LENIN PHD, SANJEEV A V72.31 PATRON ATTENDANT EXAM, ROUTINE 08/11/2010 BOEGERONIMO PHD, SANJEEV A 627.1 POSTMENOPAUSAL BLEEDING 08/11/2010 BOEGERONIMO SMALL, SANJEEV A V72.31 PATRON ATTENDANT EXAM, ROUTINE 08/11/2010 BOEGERONIMO SMALL, SANJEEV A 627.1 POSTMENOPAUSAL BLEEDING 08/11/2010 BOEGERONIMO SMALL, SANJEEV A V72.31 PATRON ATTENDANT EXAM, ROUTINE 08/11/2010 BOEGERONIMO SMALL, SANJEEV A 627.1 POSTMENOPAUSAL BLEEDING 08/11/2010 BOEGERONIMO SMALL, SANJEEV A V72.31 PATRON ATTENDANT EXAM, ROUTINE 08/11/2010 THU DAMAGE ASSESSORLEIDA T 627.1 POSTMENOPAUSAL BLEEDING 08/11/2010 THU DAMAGE ASSESSORLEIDA T V72.31 PATRON ATTENDANT EXAM, ROUTINE 08/11/2010 THU DAMAGE ASSESSOR LEIDA T 627.1 POSTMENOPAUSAL BLEEDING 08/11/2010 THU JONESNLEIDA T V72.31 PATRON ATTENDANT EXAM, ROUTINE 08/11/2010 SANJEEV PHELPS PHD A 627.1 POSTMENOPAUSAL BLEEDING 08/11/2010 LENIN SMALL, SANJEEV A V72.31 PATRON ATTENDANT EXAM, ROUTINE 08/11/2010 BOEGERONIMO SMALL, SANJEEV A 627.1 POSTMENOPAUSAL BLEEDING 08/11/2010 SANJEEV PHELPS PHD A V72.31 PATRON ATTENDANT EXAM, ROUTINE 08/11/2010 BOEGERONIMO SMALL, SANJEEV A 627.1 POSTMENOPAUSAL BLEEDING 08/11/2010 SANJEEV PHELPS PHD A V72.31 PATRON ATTENDANT EXAM, ROUTINE 08/11/2010 LENIN SMALL, SANJEEV A 627.1 POSTMENOPAUSAL BLEEDING 08/11/2010 BOESANJEEV MELTON PHD A V72.31 PATRON ATTENDANT EXAM, ROUTINE 08/11/2010 BOEGERONIMO SMALL, SANJEEV A 627.1 POSTMENOPAUSAL BLEEDING 08/11/2010 SANJEEV PHELPS PHD A V72.31 PATRON ATTENDANT EXAM, ROUTINE 09/22/2010 SANJEEV PHELPS PHD 218.9 UTERINE LEIOMYOMA PEDUNCULATED 09/22/2010 SANJEEV PHELPS PHD 376.30 EXOPHTHALMOS 09/22/2010 218.9 UTERINE LEIOMYOMA PEDUNCULATED 09/22/2010 376.30 EXOPHTHALMOS 09/22/2010 SANJEEV PHELPS PHD 218.9 UTERINE LEIOMYOMA PEDUNCULATED 09/22/2010 SANJEEV PHELPS PHD 376.30 EXOPHTHALMOS 09/22/2010 SANJEEV PHELPS PHD 218.9 UTERINE LEIOMYOMA PEDUNCULATED 09/22/2010 SANJEEV PHELPS PHD 376.30 EXOPHTHALMOS 09/22/2010 SANJEEV PHELPS PHD 218.9 UTERINE LEIOMYOMA PEDUNCULATED 09/22/2010 SANJEEV PHELPS PHD 376.30 EXOPHTHALMOS 09/22/2010 218.9 UTERINE LEIOMYOMA PEDUNCULATED 09/22/2010 376.30 EXOPHTHALMOS 09/22/2010 218.9 UTERINE LEIOMYOMA PEDUNCULATED 09/22/2010 376.30 EXOPHTHALMOS 09/22/2010 218.9 UTERINE LEIOMYOMA PEDUNCULATED 09/22/2010 376.30 EXOPHTHALMOS 09/22/2010 218.9 UTERINE LEIOMYOMA PEDUNCULATED 09/22/2010 376.30 EXOPHTHALMOS 09/22/2010 218.9 UTERINE LEIOMYOMA PEDUNCULATED 09/22/2010 376.30 EXOPHTHALMOS 09/22/2010 218.9 UTERINE LEIOMYOMA PEDUNCULATED 09/22/2010 376.30 EXOPHTHALMOS 09/22/2010 218.9 UTERINE LEIOMYOMA PEDUNCULATED 09/22/2010 376.30 EXOPHTHALMOS 09/22/2010 218.9 UTERINE LEIOMYOMA PEDUNCULATED 09/22/2010 376.30 EXOPHTHALMOS 09/22/2010 218.9 UTERINE LEIOMYOMA PEDUNCULATED 09/22/2010 376.30 EXOPHTHALMOS 09/22/2010 SANJEEV PHELPS PHD 218.9 UTERINE LEIOMYOMA PEDUNCULATED 09/22/2010 SANJEEV PHELPS PHD 376.30 EXOPHTHALMOS 09/22/2010 SANJEEV PHELPS PHD 218.9 UTERINE LEIOMYOMA PEDUNCULATED 09/22/2010 SANJEEV PHELPS PHD 376.30 EXOPHTHALMOS 09/22/2010 MARSHALL DO, BETHANY K 218.9 UTERINE LEIOMYOMA PEDUNCULATED 09/22/2010 MARSHALL DO, BETHANY K 376.30 EXOPHTHALMOS 09/22/2010 SANJEEV PHELPS PHD 218.9 UTERINE LEIOMYOMA PEDUNCULATED 09/22/2010 BOEKHOUT PHD, SANJEEV A 376.30 EXOPHTHALMOS 09/22/2010 BOESRAVANTHIOUT PHD, SANJEEV A 218.9 UTERINE LEIOMYOMA PEDUNCULATED 09/22/2010 BOESRAVANTHIOUT PHD, SANJEEV A 376.30 EXOPHTHALMOS 09/22/2010 BOESRAVANTHIOUT PHD, SANJEEV A 218.9 UTERINE LEIOMYOMA PEDUNCULATED 09/22/2010 BOEKHOUT PHD, SANJEEV A 376.30 EXOPHTHALMOS 09/22/2010 LEIDA ANDINO APRN T 218.9 UTERINE LEIOMYOMA PEDUNCULATED 09/22/2010 LEIDA ANDINO APRN T 376.30 EXOPHTHALMOS 09/22/2010 BOESRAVANTHIOUT PHD, SANJEEV A 218.9 UTERINE LEIOMYOMA PEDUNCULATED 09/22/2010 BOESRAVANTHIOUT PHD, SANJEEV A 376.30 EXOPHTHALMOS 09/22/2010 BOESRAVANTHIOUT PHD, SANJEEV A 218.9 UTERINE LEIOMYOMA PEDUNCULATED 09/22/2010 BOESRAVANTHIOUT PHD, SANJEEV A 376.30 EXOPHTHALMOS 09/22/2010 BOESRAVANTHIOUT PHD, SANJEEV A 218.9 UTERINE LEIOMYOMA PEDUNCULATED 09/22/2010 BOESRAVANTHIOUT PHD, SANJEEV A 376.30 EXOPHTHALMOS 09/22/2010 LEIDA ANDINO APRN T 218.9 UTERINE LEIOMYOMA PEDUNCULATED 09/22/2010 LEIDA ANDINO APRN T 376.30 EXOPHTHALMOS 09/22/2010 BOEGERONIMO PHD, SANJEEV A 218.9 UTERINE LEIOMYOMA PEDUNCULATED 09/22/2010 BOEGERONIMO PHD, SANJEEV A 376.30 EXOPHTHALMOS 09/22/2010 BOEGERONIMO PHD, SANJEEV A 218.9 UTERINE LEIOMYOMA PEDUNCULATED 09/22/2010 BOESRAVANTHIOUT PHD, SANJEEV A 376.30 EXOPHTHALMOS 09/22/2010 BOESRAVANTHIOUT PHD, SANJEEV A 218.9 UTERINE LEIOMYOMA PEDUNCULATED 09/22/2010 BOESRAVANTHIOUT PHD, SANJEEV A 376.30 EXOPHTHALMOS 09/22/2010 BOESRAVANTHIOUT PHD, SANJEEV A 218.9 UTERINE LEIOMYOMA PEDUNCULATED 09/22/2010 BOESRAVANTHIOUT PHD, SANJEEV A 376.30 EXOPHTHALMOS 09/22/2010 BOEGERONIMO PHD, SANJEEV A 218.9 UTERINE LEIOMYOMA PEDUNCULATED 09/22/2010 BOEGERONIMO PHD, SANJEEV A 376.30 EXOPHTHALMOS 09/22/2010 LENIN PHD, SANJEEV A 218.9 UTERINE LEIOMYOMA PEDUNCULATED 09/22/2010 BOEGERONIMO PHD, SANJEEV A 376.30 EXOPHTHALMOS 09/22/2010 BOEGERONIMO PHD, SANJEEV A 218.9 UTERINE LEIOMYOMA PEDUNCULATED 09/22/2010 BOEGERONIMO PHD, SANJEEV Cm 376.30 EXOPHTHALMOS 09/22/2010 BOEGERONIMO PHD, SANJEEV Cm 218.9 UTERINE LEIOMYOMA PEDUNCULATED 09/22/2010 BOEGERONIMO PHD, SANJEEV A 376.30 EXOPHTHALMOS 09/22/2010 BOEGERONIMO PHD, SANJEEV Cm 218.9 UTERINE LEIOMYOMA PEDUNCULATED 09/22/2010 BOEGERONIMO PHD, SANJEEV Cm 376.30 EXOPHTHALMOS 09/22/2010 LEIDA ANDINO APRN T 218.9 UTERINE LEIOMYOMA PEDUNCULATED 09/22/2010 LEIDA ANDINO APRN T 376.30 EXOPHTHALMOS 09/22/2010 LEIDA ANDINO APRN T 218.9 UTERINE LEIOMYOMA PEDUNCULATED 09/22/2010 THU SINGH LEIDA T 376.30 EXOPHTHALMOS 09/22/2010 LENIN SMALL, SANJEEV Cm 218.9 UTERINE LEIOMYOMA PEDUNCULATED 09/22/2010 LENIN SMALL, SANJEEV Cm 376.30 EXOPHTHALMOS 09/22/2010 LENIN SMALL, SANJEEV Cm 218.9 UTERINE LEIOMYOMA PEDUNCULATED 09/22/2010 LENIN SMALL, SANJEEV Cm 376.30 EXOPHTHALMOS 09/22/2010 SANJEEV PHELPS PHD 218.9 UTERINE LEIOMYOMA PEDUNCULATED 09/22/2010 SANJEEV PHELPS PHD 376.30 EXOPHTHALMOS 09/22/2010 SANJEEV PHELPS PHD 218.9 UTERINE LEIOMYOMA PEDUNCULATED 09/22/2010 SANJEEV PHELPS PHD 376.30 EXOPHTHALMOS 09/22/2010 SANJEEV PHELPS PHD 218.9 UTERINE LEIOMYOMA PEDUNCULATED 09/22/2010 SANJEEV PHELPS PHD 376.30 EXOPHTHALMOS 01/06/2011 SANJEEV PHELPS PHD 301.9 PD PERS DIS NOS 01/06/2011 301.9 PD PERS DIS NOS 01/06/2011 BOEKHOUT PHD, SANJEEV A 301.9 PD PERS DIS NOS 01/06/2011 LENIN SMALL, SANJEEV A 301.9 PD PERS DIS NOS 01/06/2011 LENIN PHD, SANJEEV A 301.9 PD PERS DIS NOS 01/06/2011 301.9 PD PERS DIS NOS 01/06/2011 301.9 PD PERS DIS NOS 01/06/2011 301.9 PD PERS DIS NOS 01/06/2011 301.9 PD PERS DIS NOS 01/06/2011 301.9 PD PERS DIS NOS 01/06/2011 301.9 PD PERS DIS NOS 01/06/2011 301.9 PD PERS DIS NOS 01/06/2011 301.9 PD PERS DIS NOS 01/06/2011 301.9 PD PERS DIS NOS 01/06/2011 LENIN SMALL, SANJEEV Cm 301.9 PD PERS DIS NOS 01/06/2011 LENIN SMALL, SANJEEV Cm 301.9 PD PERS DIS NOS 01/06/2011 BETHANY MARSHALL DO 301.9 PD PERS DIS NOS 01/06/2011 LENIN SMALL, SANJEEV A 301.9 PD PERS DIS NOS 01/06/2011 LENIN SMALL, SANJEEV Cm 301.9 PD PERS DIS NOS 01/06/2011 LENIN SMALL, SANJEEV Cm 301.9 PD PERS DIS NOS 01/06/2011 LEIDA ANDINO APRN 301.9 PD PERS DIS NOS 01/06/2011 LENIN SMALL, SANJEEV Cm 301.9 PD PERS DIS NOS 01/06/2011 LENIN SMALL, SANJEEV Cm 301.9 PD PERS DIS NOS 01/06/2011 LENIN SMALL, SANJEEV Cm 301.9 PD PERS DIS NOS 01/06/2011 LEIDA ANDINO APRN 301.9 PD PERS DIS NOS 01/06/2011 LENIN SMALL, SANJEEV Cm 301.9 PD PERS DIS NOS 01/06/2011 LENIN SMALL, SANJEEV Cm 301.9 PD PERS DIS NOS 01/06/2011 LENIN SMALL, SANJEEV Cm 301.9 PD PERS DIS NOS 01/06/2011 LENIN SMALL, SANJEEV A 301.9 PD PERS DIS NOS 01/06/2011 LENIN SMALL, SANJEEV Cm 301.9 PD PERS DIS NOS 01/06/2011 LENIN SMALL, SANJEEV Cm 301.9 PD PERS DIS NOS 01/06/2011 LENIN SMALL, SANJEEV Cm 301.9 PD PERS DIS NOS 01/06/2011 LENIN PHD, SANJEEV Cm 301.9 PD PERS DIS NOS 01/06/2011 LENIN PHD, SANJEEV Cm 301.9 PD PERS DIS NOS 01/06/2011 THU SINGH, LEIDA T 301.9 PD PERS DIS NOS 01/06/2011 THU JONESN, LEIDA T 301.9 PD PERS DIS NOS 01/06/2011 LENIN SMALL, SANJEEV A 301.9 PD PERS DIS NOS 01/06/2011 LENIN SMALL, SANJEEV Cm 301.9 PD PERS DIS NOS 01/06/2011 LENIN SMALL, SANJEEV Cm 301.9 PD PERS DIS NOS 01/06/2011 LENIN SMALL, SANJEEV Cm 301.9 PD PERS DIS NOS 01/06/2011 LENIN SMALL, SANJEEV Cm 301.9 PD PERS DIS NOS 03/23/2011 SANJEEV PHELPS PHD 536.8 DYSPEPSIA 03/23/2011 536.8 DYSPEPSIA 03/23/2011 SANJEEV PHELPS PHD 536.8 DYSPEPSIA 03/23/2011 SANJEEV PHELPS PHD 536.8 DYSPEPSIA 03/23/2011 SANJEEV PHELPS PHD 536.8 DYSPEPSIA 03/23/2011 536.8 DYSPEPSIA 03/23/2011 536.8 DYSPEPSIA 03/23/2011 536.8 DYSPEPSIA 03/23/2011 536.8 DYSPEPSIA 03/23/2011 536.8 DYSPEPSIA 03/23/2011 536.8 DYSPEPSIA 03/23/2011 536.8 DYSPEPSIA 03/23/2011 536.8 DYSPEPSIA 03/23/2011 536.8 DYSPEPSIA 03/23/2011 SANJEEV PHELPS PHD 536.8 DYSPEPSIA 03/23/2011 SANJEEV PHELPS PHD 536.8 DYSPEPSIA 03/23/2011 BETHANY MARSHALL DO 536.8 DYSPEPSIA 03/23/2011 SANJEEV PHELPS PHD 536.8 DYSPEPSIA 03/23/2011 SANJEEV PHELPS PHD 536.8 DYSPEPSIA 03/23/2011 BOEKHOUT PHD, SANJEEV A 536.8 DYSPEPSIA 03/23/2011 THU SINGH, LEIDA T 536.8 DYSPEPSIA 03/23/2011 BOEKHOUT PHD, SANJEEV A 536.8 DYSPEPSIA 03/23/2011 BOEKHOUT PHD, SANJEEV A 536.8 DYSPEPSIA 03/23/2011 BOEKHOUT PHD, SANJEEV A 536.8 DYSPEPSIA 03/23/2011 THU SINGH, LEIDA T 536.8 DYSPEPSIA 03/23/2011 BOEKHOUT PHD, SANJEEV A 536.8 DYSPEPSIA 03/23/2011 BOEKHOUT PHD, SANJEEV A 536.8 DYSPEPSIA 03/23/2011 BOEKHOUT PHD, SANJEEV A 536.8 DYSPEPSIA 03/23/2011 BOEKHOUT PHD, SANJEEV A 536.8 DYSPEPSIA 03/23/2011 BOEKHOUT PHD, SANJEEV A 536.8 DYSPEPSIA 03/23/2011 BOEKHOUT PHD, SANJEEV A 536.8 DYSPEPSIA 03/23/2011 BOEKHOUT PHD, SANJEEV A 536.8 DYSPEPSIA 03/23/2011 BOEKHOUT PHD, SANJEEV A 536.8 DYSPEPSIA 03/23/2011 BOEOUT PHD, SANJEEV A 536.8 DYSPEPSIA 03/23/2011 THU SINGH, LEIDA T 536.8 DYSPEPSIA 03/23/2011 THU SINGH, LEIDA T 536.8 DYSPEPSIA 03/23/2011 BOEKHOUT PHD, SANJEEV A 536.8 DYSPEPSIA 03/23/2011 BOESRAVANTHIOUT PHD, SANJEEV A 536.8 DYSPEPSIA 03/23/2011 BOEKHOUT PHD, SANJEEV A 536.8 DYSPEPSIA 03/23/2011 BOESRAVANTHIOUT PHD, SANJEEV A 536.8 DYSPEPSIA 03/23/2011 BOESRAVANTHIOUT PHD, SANJEEV A 536.8 DYSPEPSIA 09/26/2011 BOESRAVANTHIOUT PHD, SANJEEV A 338.18 OTHER ACUTE POSTOPERATIVE PAIN 09/26/2011 BOESRAVANTHIOUT PHD, SANJEEV A 575.11 CHOLECYSTITIS, CHRONIC 09/26/2011 BOEGERONIMO PHD, SANJEEV A 790.6 OTHER ABNORMAL BLOOD CHEMISTRY 09/26/2011 338.18 OTHER ACUTE POSTOPERATIVE PAIN 09/26/2011 575.11 CHOLECYSTITIS , CHRONIC 09/26/2011 790.6 OTHER ABNORMAL BLOOD CHEMISTRY 09/26/2011 SANJEEV PHELPS PHD A 338.18 OTHER ACUTE POSTOPERATIVE PAIN 09/26/2011 LENIN SMALL, SANJEEV A 575.11 CHOLECYSTITIS, CHRONIC 09/26/2011 LENIN SMALL, SANJEEV A 790.6 OTHER ABNORMAL BLOOD CHEMISTRY 09/26/2011 LENIN SMALL, SANJEEV A 338.18 OTHER ACUTE POSTOPERATIVE PAIN 09/26/2011 LENIN SMALL, SANJEEV A 575.11 CHOLECYSTITIS, CHRONIC 09/26/2011 LENIN SMALL, SANJEEV A 790.6 OTHER ABNORMAL BLOOD CHEMISTRY 09/26/2011 LENIN SMALL, SANJEEV A 338.18 OTHER ACUTE POSTOPERATIVE PAIN 09/26/2011 LENIN SMALL, SANJEEV A 575.11 CHOLECYSTITIS, CHRONIC 09/26/2011 LENIN SMALL, SANJEEV A 790.6 OTHER ABNORMAL BLOOD CHEMISTRY 09/26/2011 338.18 OTHER ACUTE POSTOPERATIVE PAIN 09/26/2011 575.11 CHOLECYSTITIS , CHRONIC 09/26/2011 790.6 OTHER ABNORMAL BLOOD CHEMISTRY 09/26/2011 338.18 OTHER ACUTE POSTOPERATIVE PAIN 09/26/2011 575.11 CHOLECYSTITIS , CHRONIC 09/26/2011 790.6 OTHER ABNORMAL BLOOD CHEMISTRY 09/26/2011 338.18 OTHER ACUTE POSTOPERATIVE PAIN 09/26/2011 575.11 CHOLECYSTITIS , CHRONIC 09/26/2011 790.6 OTHER ABNORMAL BLOOD CHEMISTRY 09/26/2011 338.18 OTHER ACUTE POSTOPERATIVE PAIN 09/26/2011 575.11 CHOLECYSTITIS , CHRONIC 09/26/2011 790.6 OTHER ABNORMAL BLOOD CHEMISTRY 09/26/2011 338.18 OTHER ACUTE POSTOPERATIVE PAIN 09/26/2011 575.11 CHOLECYSTITIS , CHRONIC 09/26/2011 790.6 OTHER ABNORMAL BLOOD CHEMISTRY 09/26/2011 338.18 OTHER ACUTE POSTOPERATIVE PAIN 09/26/2011 575.11 CHOLECYSTITIS , CHRONIC 09/26/2011 790.6 OTHER ABNORMAL BLOOD CHEMISTRY 09/26/2011 338.18 OTHER ACUTE POSTOPERATIVE PAIN 09/26/2011 575.11 CHOLECYSTITIS , CHRONIC 09/26/2011 790.6 OTHER ABNORMAL BLOOD CHEMISTRY 09/26/2011 338.18 OTHER ACUTE POSTOPERATIVE PAIN 09/26/2011 575.11 CHOLECYSTITIS , CHRONIC 09/26/2011 790.6 OTHER ABNORMAL BLOOD CHEMISTRY 09/26/2011 338.18 OTHER ACUTE POSTOPERATIVE PAIN 09/26/2011 575.11 CHOLECYSTITIS , CHRONIC 09/26/2011 790.6 OTHER ABNORMAL BLOOD CHEMISTRY 09/26/2011 SANJEEV PHELPS PHD A 338.18 OTHER ACUTE POSTOPERATIVE PAIN 09/26/2011 SANJEEV PHELPS PHD A 575.11 CHOLECYSTITIS, CHRONIC 09/26/2011 SANJEEV PHELPS PHD A 790.6 OTHER ABNORMAL BLOOD CHEMISTRY 09/26/2011 LENIN SMALL, SANJEEV A 338.18 OTHER ACUTE POSTOPERATIVE PAIN 09/26/2011 SANJEEV PHELPS PHD A 575.11 CHOLECYSTITIS, CHRONIC 09/26/2011 SANJEEV PHELPS PHD A 790.6 OTHER ABNORMAL BLOOD CHEMISTRY 09/26/2011 MARSHALL DO, BETHANY K 338.18 OTHER ACUTE POSTOPERATIVE PAIN 09/26/2011 MARSHALL DO, BETHANY K 575.11 CHOLECYSTITIS, CHRONIC 09/26/2011 MARSHALL DO, BETHANY K 790.6 OTHER ABNORMAL BLOOD CHEMISTRY 09/26/2011 SANJEEV PHELPS PHD A 338.18 OTHER ACUTE POSTOPERATIVE PAIN 09/26/2011 SANJEEV PHELPS PHD A 575.11 CHOLECYSTITIS, CHRONIC 09/26/2011 SANJEEV PHELPS PHD A 790.6 OTHER ABNORMAL BLOOD CHEMISTRY 09/26/2011 SANJEEV PHELPS PHD A 338.18 OTHER ACUTE POSTOPERATIVE PAIN 09/26/2011 SANJEEV PHELPS PHD A 575.11 CHOLECYSTITIS, CHRONIC 09/26/2011 SANJEEV PHELPS PHD A 790.6 OTHER ABNORMAL BLOOD CHEMISTRY 09/26/2011 SANJEEV PHELPS PHD A 338.18 OTHER ACUTE POSTOPERATIVE PAIN 09/26/2011 SANJEEV PHELPS PHD A 575.11 CHOLECYSTITIS, CHRONIC 09/26/2011 SANJEEV PHELPS PHD A 790.6 OTHER ABNORMAL BLOOD CHEMISTRY 09/26/2011 LEIDA ANDINO APRN T 338.18 OTHER ACUTE POSTOPERATIVE PAIN 09/26/2011 LEIDA ANDINO APRN 575.11 CHOLECYSTITIS, CHRONIC 09/26/2011 LEIDA ANDINO APRN 790.6 OTHER ABNORMAL BLOOD CHEMISTRY 09/26/2011 SANJEEV PHELPS PHD A 338.18 OTHER ACUTE POSTOPERATIVE PAIN 09/26/2011 SANJEEV PHELPS PHD A 575.11 CHOLECYSTITIS, CHRONIC 09/26/2011 LENIN SMALL, SANJEEV A 790.6 OTHER ABNORMAL BLOOD CHEMISTRY 09/26/2011 LENIN SMALL, SANJEEV A 338.18 OTHER ACUTE POSTOPERATIVE PAIN 09/26/2011 LENIN SMALL, SANJEEV A 575.11 CHOLECYSTITIS, CHRONIC 09/26/2011 LENIN SMALL, SANJEEV A 790.6 OTHER ABNORMAL BLOOD CHEMISTRY 09/26/2011 LENIN SMALL, SANJEEV A 338.18 OTHER ACUTE POSTOPERATIVE PAIN 09/26/2011 LENIN SMALL, SANJEEV A 575.11 CHOLECYSTITIS, CHRONIC 09/26/2011 LENIN SMALL, SANJEEV A 790.6 OTHER ABNORMAL BLOOD CHEMISTRY 09/26/2011 THU DAMAGE ASSESSOR, LEIDA T 338.18 OTHER ACUTE POSTOPERATIVE PAIN 09/26/2011 THU DAMAGE ASSESSOR, LEIDA T 575.11 CHOLECYSTITIS, CHRONIC 09/26/2011 THU DAMAGE ASSESSOR, LEIDA T 790.6 OTHER ABNORMAL BLOOD CHEMISTRY 09/26/2011 LENIN SMALL, SANJEEV A 338.18 OTHER ACUTE POSTOPERATIVE PAIN 09/26/2011 LENIN SMALL, SANJEEV A 575.11 CHOLECYSTITIS, CHRONIC 09/26/2011 LENIN SMALL, SANJEEV A 790.6 OTHER ABNORMAL BLOOD CHEMISTRY 09/26/2011 LENIN SMALL, SANJEEV A 338.18 OTHER ACUTE POSTOPERATIVE PAIN 09/26/2011 LENIN SMALL, SANJEEV A 575.11 CHOLECYSTITIS, CHRONIC 09/26/2011 LENIN SMALL, SANJEEV A 790.6 OTHER ABNORMAL BLOOD CHEMISTRY 09/26/2011 LENIN SMALL, SANJEEV A 338.18 OTHER ACUTE POSTOPERATIVE PAIN 09/26/2011 LENIN SMALL, SANJEEV A 575.11 CHOLECYSTITIS, CHRONIC 09/26/2011 LENIN SMALL, SANJEEV A 790.6 OTHER ABNORMAL BLOOD CHEMISTRY 09/26/2011 LENIN SMALL, SANJEEV A 338.18 OTHER ACUTE POSTOPERATIVE PAIN 09/26/2011 SANJEEV PHELPS PHD A 575.11 CHOLECYSTITIS, CHRONIC 09/26/2011 LENIN SMALL, SANJEEV A 790.6 OTHER ABNORMAL BLOOD CHEMISTRY 09/26/2011 LENIN SMALL, SANJEEV A 338.18 OTHER ACUTE POSTOPERATIVE PAIN 09/26/2011 LENIN SMALL, SANJEEV A 575.11 CHOLECYSTITIS, CHRONIC 09/26/2011 SANJEEV PHELPS PHD A 790.6 OTHER ABNORMAL BLOOD CHEMISTRY 09/26/2011 SANJEEV PHELPS PHD A 338.18 OTHER ACUTE POSTOPERATIVE PAIN 09/26/2011 SANJEEV PHELPS PHD A 575.11 CHOLECYSTITIS, CHRONIC 09/26/2011 SANJEEV PHELPS PHD A 790.6 OTHER ABNORMAL BLOOD CHEMISTRY 09/26/2011 SANJEEV PHELPS PHD A 338.18 OTHER ACUTE POSTOPERATIVE PAIN 09/26/2011 SANJEEV PHELPS PHD A 575.11 CHOLECYSTITIS, CHRONIC 09/26/2011 SANJEEV PHELPS PHD A 790.6 OTHER ABNORMAL BLOOD CHEMISTRY 09/26/2011 SANJEEV PHELPS PHD A 338.18 OTHER ACUTE POSTOPERATIVE PAIN 09/26/2011 SANJEEV PHELPS PHD A 575.11 CHOLECYSTITIS, CHRONIC 09/26/2011 SANJEEV PHELPS PHD A 790.6 OTHER ABNORMAL BLOOD CHEMISTRY 09/26/2011 SANJEEV PHELPS PHD A 338.18 OTHER ACUTE POSTOPERATIVE PAIN 09/26/2011 SANJEEV PHELPS PHD A 575.11 CHOLECYSTITIS, CHRONIC 09/26/2011 CHITOSANJEEV MCLAUGHLIN PHD A 790.6 OTHER ABNORMAL BLOOD CHEMISTRY 09/26/2011 THU SINGH LEIDA T 338.18 OTHER ACUTE POSTOPERATIVE PAIN 09/26/2011 LEIDA ANDINO APRN T 575.11 CHOLECYSTITIS, CHRONIC 09/26/2011 THU SINGH LEIDA T 790.6 OTHER ABNORMAL BLOOD CHEMISTRY 09/26/2011 THU SINGH LEIDA T 338.18 OTHER ACUTE POSTOPERATIVE PAIN 09/26/2011 LEIDA ANDINO APRN T 575.11 CHOLECYSTITIS, CHRONIC 09/26/2011 THU SINGH, LEIDA T 790.6 OTHER ABNORMAL BLOOD CHEMISTRY 09/26/2011 SANJEEV PHELPS PHD A 338.18 OTHER ACUTE POSTOPERATIVE PAIN 09/26/2011 SANJEEV PHELPS PHD A 575.11 CHOLECYSTITIS, CHRONIC 09/26/2011 SANJEEV PHELPS PHD A 790.6 OTHER ABNORMAL BLOOD CHEMISTRY 09/26/2011 SANJEEV PHELPS PHD A 338.18 OTHER ACUTE POSTOPERATIVE PAIN 09/26/2011 SANJEEV PHELPS PHD A 575.11 CHOLECYSTITIS, CHRONIC 09/26/2011 SANJEEV PHELPS PHD A 790.6 OTHER ABNORMAL BLOOD CHEMISTRY 09/26/2011 LENIN PHD, SANJEEV A 338.18 OTHER ACUTE POSTOPERATIVE PAIN 09/26/2011 LENIN PHD, SANJEEV A 575.11 CHOLECYSTITIS, CHRONIC 09/26/2011 LENIN PHD, SANJEEV A 790.6 OTHER ABNORMAL BLOOD CHEMISTRY 09/26/2011 LENIN PHD, SANJEEV A 338.18 OTHER ACUTE POSTOPERATIVE PAIN 09/26/2011 LENIN PHD, SANJEEV A 575.11 CHOLECYSTITIS, CHRONIC 09/26/2011 LENIN PHD, SANJEEV A 790.6 OTHER ABNORMAL BLOOD CHEMISTRY 09/26/2011 LENIN PHD, SANJEEV A 338.18 OTHER ACUTE POSTOPERATIVE PAIN 09/26/2011 LENIN PHD, SANJEEV A 575.11 CHOLECYSTITIS, CHRONIC 09/26/2011 LENIN PHD, SANJEEV A 790.6 OTHER ABNORMAL BLOOD CHEMISTRY 12/08/2011 LENIN SMALL, SANJEEV Cm NODX NO DIAGNOSIS 12/08/2011 NODX NO DIAGNOSIS 12/08/2011 LENIN SMALL, SANJEEV Cm NODX NO DIAGNOSIS 12/08/2011 LENIN PHD, SANJEEV Cm NODX NO DIAGNOSIS 12/08/2011 LENIN PHD, SANJEEV Cm NODX NO DIAGNOSIS 12/08/2011 NODX NO DIAGNOSIS 12/08/2011 NODX NO DIAGNOSIS 12/08/2011 NODX NO DIAGNOSIS 12/08/2011 NODX NO DIAGNOSIS 12/08/2011 NODX NO DIAGNOSIS 12/08/2011 NODX NO DIAGNOSIS 12/08/2011 NODX NO DIAGNOSIS 12/08/2011 NODX NO DIAGNOSIS 12/08/2011 NODX NO DIAGNOSIS 12/08/2011 LENIN PHD, SANJEEV Cm NODX NO DIAGNOSIS 12/08/2011 LENIN PHD, SANJEEV Cm NODX NO DIAGNOSIS 12/08/2011 ROLANDO DYE BETHANY Wright NODX NO DIAGNOSIS 12/08/2011 LENIN SMALL, SANJEEV Cm NODX NO DIAGNOSIS 12/08/2011 LENIN PHD, SANJEEV Cm NODX NO DIAGNOSIS 12/08/2011 LENIN PHD, SANJEEV Cm NODX NO DIAGNOSIS 12/08/2011 LEIDA ANDINO APRN NODX NO DIAGNOSIS 12/08/2011 LENIN SMALL, SANJEEV Cm NODX NO DIAGNOSIS 12/08/2011 LENIN SMALL, SANJEEV Cm NODX NO DIAGNOSIS 12/08/2011 LENIN PHD, SANJEEV A NODX NO DIAGNOSIS 12/08/2011 THU JONESN, LEIDA Chavez NODX NO DIAGNOSIS 12/08/2011 BOEGERONIMO PHD, SANJEEV A NODX NO DIAGNOSIS 12/08/2011 BOEGERONIMO PHD, SANJEEV A NODX NO DIAGNOSIS 12/08/2011 BOEGERONIMO PHD, SANJEEV A NODX NO DIAGNOSIS 12/08/2011 BOEGERONIMO PHD, SANJEEV A NODX NO DIAGNOSIS 12/08/2011 BOEGERONIMO PHD, SANJEEV A NODX NO DIAGNOSIS 12/08/2011 BOEGERONIMO PHD, SANJEEV A NODX NO DIAGNOSIS 12/08/2011 BOEGERONIMO PHD, SANJEEV A NODX NO DIAGNOSIS 12/08/2011 BOEGERONIMO PHD, SANJEEV A NODX NO DIAGNOSIS 12/08/2011 BOEGERONIMO PHD, SANJEEV A NODX NO DIAGNOSIS 12/08/2011 THU JONESN, LEIDA Chavez NODX NO DIAGNOSIS 12/08/2011 THU JONESN, LEIDA Chavez NODX NO DIAGNOSIS 12/08/2011 BOEGERONIMO PHD, SANJEEV A NODX NO DIAGNOSIS 12/08/2011 BOEGERONIMO PHD, SANJEEV A NODX NO DIAGNOSIS 12/08/2011 BOEGERONIMO PHD, SANJEEV A NODX NO DIAGNOSIS 12/08/2011 BOEGERONIMO PHD, SANJEEV A NODX NO DIAGNOSIS 12/08/2011 BOEGERONIMO PHD, SANJEEV A NODX NO DIAGNOSIS 12/29/2011 SANJEEV PHELPS PHD 112.1 CANDIDIASIS VAGINAL 12/29/2011 SANJEEV PHELPS PHD V76.10 BREAST CANCER SCREENING 12/29/2011 SANJEEV PHELPS PHD V76.2 CERVICAL CANCER SCREENING (PAP SMEAR) 12/29/2011 112.1 CANDIDIASIS VAGINAL 12/29/2011 V76.10 BREAST CANCER SCREENING 12/29/2011 V76.2 CERVICAL CANCER SCREENING (PAP SMEAR) 12/29/2011 SANJEEV PHELPS PHD 112.1 CANDIDIASIS VAGINAL 12/29/2011 SANJEEV PHELPS PHD V76.10 BREAST CANCER SCREENING 12/29/2011 SANJEEV PHELPS PHD V76.2 CERVICAL CANCER SCREENING (PAP SMEAR) 12/29/2011 SANJEEV PHELPS PHD 112.1 CANDIDIASIS VAGINAL 12/29/2011 SANJEEV PHELPS PHD V76.10 BREAST CANCER SCREENING 12/29/2011 SANJEEV PHELPS PHD V76.2 CERVICAL CANCER SCREENING (PAP SMEAR) 12/29/2011 SANJEEV PHELPS PHD 112.1 CANDIDIASIS VAGINAL 12/29/2011 SANJEEV PHELPS PHD V76.10 BREAST CANCER SCREENING 12/29/2011 SANJEEV PHELPS PHD V76.2 CERVICAL CANCER SCREENING (PAP SMEAR) 12/29/2011 112.1 CANDIDIASIS VAGINAL 12/29/2011 V76.10 BREAST CANCER SCREENING 12/29/2011 V76.2 CERVICAL CANCER SCREENING (PAP SMEAR) 12/29/2011 112.1 CANDIDIASIS VAGINAL 12/29/2011 V76.10 BREAST CANCER SCREENING 12/29/2011 V76.2 CERVICAL CANCER SCREENING (PAP SMEAR) 12/29/2011 112.1 CANDIDIASIS VAGINAL 12/29/2011 V76.10 BREAST CANCER SCREENING 12/29/2011 V76.2 CERVICAL CANCER SCREENING (PAP SMEAR) 12/29/2011 112.1 CANDIDIASIS VAGINAL 12/29/2011 V76.10 BREAST CANCER SCREENING 12/29/2011 V76.2 CERVICAL CANCER SCREENING (PAP SMEAR) 12/29/2011 112.1 CANDIDIASIS VAGINAL 12/29/2011 V76.10 BREAST CANCER SCREENING 12/29/2011 V76.2 CERVICAL CANCER SCREENING (PAP SMEAR) 12/29/2011 112.1 CANDIDIASIS VAGINAL 12/29/2011 V76.10 BREAST CANCER SCREENING 12/29/2011 V76.2 CERVICAL CANCER SCREENING (PAP SMEAR) 12/29/2011 112.1 CANDIDIASIS VAGINAL 12/29/2011 V76.10 BREAST CANCER SCREENING 12/29/2011 V76.2 CERVICAL CANCER SCREENING (PAP SMEAR) 12/29/2011 112.1 CANDIDIASIS VAGINAL 12/29/2011 V76.10 BREAST CANCER SCREENING 12/29/2011 V76.2 CERVICAL CANCER SCREENING (PAP SMEAR) 12/29/2011 112.1 CANDIDIASIS VAGINAL 12/29/2011 V76.10 BREAST CANCER SCREENING 12/29/2011 V76.2 CERVICAL CANCER SCREENING (PAP SMEAR) 12/29/2011 SANJEEV PHELPS PHD 112.1 CANDIDIASIS VAGINAL 12/29/2011 SANJEEV PHELPS PHD V76.10 BREAST CANCER SCREENING 12/29/2011 SANJEEV PHELPS PHD V76.2 CERVICAL CANCER SCREENING (PAP SMEAR) 12/29/2011 SANJEEV PHELPS PHD 112.1 CANDIDIASIS VAGINAL 12/29/2011 BOESANJEEV MELTON PHD V76.10 BREAST CANCER SCREENING 12/29/2011 BOESANJEEV MELTON PHD V76.2 CERVICAL CANCER SCREENING (PAP SMEAR) 12/29/2011 BETHANY MARSHALL DO K 112.1 CANDIDIASIS VAGINAL 12/29/2011 MARSHALL , BETHANY K V76.10 BREAST CANCER SCREENING 12/29/2011 ROLANDO DYE, BETHANY K V76.2 CERVICAL CANCER SCREENING (PAP SMEAR) 12/29/2011 BOESANJEEV MELTON PHD 112.1 CANDIDIASIS VAGINAL 12/29/2011 BOESANJEEV MELTON PHD V76.10 BREAST CANCER SCREENING 12/29/2011 SANJEEV PHELPS PHD V76.2 CERVICAL CANCER SCREENING (PAP SMEAR) 12/29/2011 SANJEEV PHELPS PHD 112.1 CANDIDIASIS VAGINAL 12/29/2011 SANJEEV PHEPLS PHD V76.10 BREAST CANCER SCREENING 12/29/2011 SANJEEV PHELPS PHD V76.2 CERVICAL CANCER SCREENING (PAP SMEAR) 12/29/2011 SANJEEV PHELPS PHD 112.1 CANDIDIASIS VAGINAL 12/29/2011 BOESANJEEV MELTON PHD V76.10 BREAST CANCER SCREENING 12/29/2011 SANJEEV PHELPS PHD V76.2 CERVICAL CANCER SCREENING (PAP SMEAR) 12/29/2011 LEIDA ANDINO APRN 112.1 CANDIDIASIS VAGINAL 12/29/2011 LEIDA ANDINO APRN V76.10 BREAST CANCER SCREENING 12/29/2011 LEIDA ANDINO APRN V76.2 CERVICAL CANCER SCREENING (PAP SMEAR) 12/29/2011 SANJEEV PHELPS PHD 112.1 CANDIDIASIS VAGINAL 12/29/2011 BOESANJEEV MELTON PHD V76.10 BREAST CANCER SCREENING 12/29/2011 SANJEEV PHELPS PHD V76.2 CERVICAL CANCER SCREENING (PAP SMEAR) 12/29/2011 SANJEEV PHELPS PHD 112.1 CANDIDIASIS VAGINAL 12/29/2011 SANJEEV PHELPS PHD V76.10 BREAST CANCER SCREENING 12/29/2011 SANJEEV PHELPS PHD V76.2 CERVICAL CANCER SCREENING (PAP SMEAR) 12/29/2011 SANJEEV PHELPS PHD 112.1 CANDIDIASIS VAGINAL 12/29/2011 BOEKHOUT PHD, SANJEEV A V76.10 BREAST CANCER SCREENING 12/29/2011 BOESANJEEV MELTON PHD A V76.2 CERVICAL CANCER SCREENING (PAP SMEAR) 12/29/2011 LEIDA ANDINO APRN 112.1 CANDIDIASIS VAGINAL 12/29/2011 LEIDA ANDINO APRN V76.10 BREAST CANCER SCREENING 12/29/2011 LEIDA ANDINO APRN V76.2 CERVICAL CANCER SCREENING (PAP SMEAR) 12/29/2011 SANJEEV PHELPS PHD 112.1 CANDIDIASIS VAGINAL 12/29/2011 BOESANJEEV MELTON PHD A V76.10 BREAST CANCER SCREENING 12/29/2011 BOESANJEEV MELTON PHD A V76.2 CERVICAL CANCER SCREENING (PAP SMEAR) 12/29/2011 SANJEEV PHELPS PHD 112.1 CANDIDIASIS VAGINAL 12/29/2011 BOESANJEEV MELTON PHD V76.10 BREAST CANCER SCREENING 12/29/2011 SANJEEV PHELPS PHD V76.2 CERVICAL CANCER SCREENING (PAP SMEAR) 12/29/2011 SANJEEV PHELPS PHD 112.1 CANDIDIASIS VAGINAL 12/29/2011 SANJEEV PHELPS PHD A V76.10 BREAST CANCER SCREENING 12/29/2011 SANJEEV PHELPS PHD V76.2 CERVICAL CANCER SCREENING (PAP SMEAR) 12/29/2011 SANJEEV PHELPS PHD 112.1 CANDIDIASIS VAGINAL 12/29/2011 SANJEEV PHELPS PHD A V76.10 BREAST CANCER SCREENING 12/29/2011 SANJEEV PHELPS PHD A V76.2 CERVICAL CANCER SCREENING (PAP SMEAR) 12/29/2011 SANJEEV PHELPS PHD 112.1 CANDIDIASIS VAGINAL 12/29/2011 SANJEEV PHELPS PHD A V76.10 BREAST CANCER SCREENING 12/29/2011 BOESANJEEV MELTON PHD A V76.2 CERVICAL CANCER SCREENING (PAP SMEAR) 12/29/2011 SANJEEV PHELPS PHD A 112.1 CANDIDIASIS VAGINAL 12/29/2011 SANJEEV PHELPS PHD A V76.10 BREAST CANCER SCREENING 12/29/2011 BOESANJEEV MELTON PHD A V76.2 CERVICAL CANCER SCREENING (PAP SMEAR) 12/29/2011 SANJEEV PHELPS PHD A 112.1 CANDIDIASIS VAGINAL 12/29/2011 SANJEEV PHELPS PHD A V76.10 BREAST CANCER SCREENING 12/29/2011 SANJEEV PHELPS PHD V76.2 CERVICAL CANCER SCREENING (PAP SMEAR) 12/29/2011 SANJEEV PHELPS PHD 112.1 CANDIDIASIS VAGINAL 12/29/2011 SANJEEV PHELPS PHD V76.10 BREAST CANCER SCREENING 12/29/2011 BOESANJEEV MELTON PHD V76.2 CERVICAL CANCER SCREENING (PAP SMEAR) 12/29/2011 SANJEEV PHELPS PHD 112.1 CANDIDIASIS VAGINAL 12/29/2011 SANJEEV PHELPS PHD V76.10 BREAST CANCER SCREENING 12/29/2011 SANJEEV PHELPS PHD V76.2 CERVICAL CANCER SCREENING (PAP SMEAR) 12/29/2011 LEIDA ANDINO APRN 112.1 CANDIDIASIS VAGINAL 12/29/2011 LEIDA ANDINO APRN V76.10 BREAST CANCER SCREENING 12/29/2011 LEIDA ANDINO APRN V76.2 CERVICAL CANCER SCREENING (PAP SMEAR) 12/29/2011 LEIDA ANDINO APRN 112.1 CANDIDIASIS VAGINAL 12/29/2011 LEIDA ANDINO APRN V76.10 BREAST CANCER SCREENING 12/29/2011 LEIDA ANDINO APRN V76.2 CERVICAL CANCER SCREENING (PAP SMEAR) 12/29/2011 SNAJEEV PHELPS PHD 112.1 CANDIDIASIS VAGINAL 12/29/2011 SANJEEV PHELPS PHD V76.10 BREAST CANCER SCREENING 12/29/2011 SANJEEV PHELPS PHD V76.2 CERVICAL CANCER SCREENING (PAP SMEAR) 12/29/2011 SANJEEV PHELPS PHD 112.1 CANDIDIASIS VAGINAL 12/29/2011 SANJEEV PHELPS PHD V76.10 BREAST CANCER SCREENING 12/29/2011 SANJEEV PHELPS PHD V76.2 CERVICAL CANCER SCREENING (PAP SMEAR) 12/29/2011 SANJEEV PHELPS PHD 112.1 CANDIDIASIS VAGINAL 12/29/2011 SANJEEV PHELPS PHD V76.10 BREAST CANCER SCREENING 12/29/2011 SANJEEV PHELPS PHD V76.2 CERVICAL CANCER SCREENING (PAP SMEAR) 12/29/2011 SANJEEV PHELPS PHD A 112.1 CANDIDIASIS VAGINAL 12/29/2011 SANJEEV PHELPS PHD V76.10 BREAST CANCER SCREENING 12/29/2011 SANJEEV PHELPS PHD V76.2 CERVICAL CANCER SCREENING (PAP SMEAR) 12/29/2011 LENIN SMALL, SANJEEV Cm 112.1 CANDIDIASIS VAGINAL 12/29/2011 LENIN SMALL, SANJEEV Cm V76.10 BREAST CANCER SCREENING 12/29/2011 LENIN PHD, SANJEEV mC V76.2 CERVICAL CANCER SCREENING (PAP SMEAR) 02/13/2012 LENIN PHD, SANJEEV A 782.3 EDEMA 02/13/2012 782.3 EDEMA 02/13/2012 BOEKHOUT PHD, SANJEEV A 782.3 EDEMA 02/13/2012 BOEKHOUT PHD, SANJEEV A 782.3 EDEMA 02/13/2012 BOEKHOUT PHD, SANJEEV A 782.3 EDEMA 02/13/2012 782.3 EDEMA 02/13/2012 782.3 EDEMA 02/13/2012 782.3 EDEMA 02/13/2012 782.3 EDEMA 02/13/2012 782.3 EDEMA 02/13/2012 782.3 EDEMA 02/13/2012 782.3 EDEMA 02/13/2012 782.3 EDEMA 02/13/2012 782.3 EDEMA 02/13/2012 BOEOUT PHD, SANJEEV A 782.3 EDEMA 02/13/2012 BOEOUT PHD, SANJEEV A 782.3 EDEMA 02/13/2012 BETHANY MARSHALL DO 782.3 EDEMA 02/13/2012 BOEKHOUT PHD, SANJEEV A 782.3 EDEMA 02/13/2012 BOEOUT PHD, SANJEEV A 782.3 EDEMA 02/13/2012 BOEOUT PHD, SANJEEV A 782.3 EDEMA 02/13/2012 LEIDA ANDINO APRN 782.3 EDEMA 02/13/2012 BOEKHOUT PHD, SANJEEV A 782.3 EDEMA 02/13/2012 BOEOUT PHD, SANJEEV A 782.3 EDEMA 02/13/2012 BOEOUT PHD, SANJEEV A 782.3 EDEMA 02/13/2012 LEIDA ANDINO APRN 782.3 EDEMA 02/13/2012 BOEKHOUT PHD, SANJEEV A 782.3 EDEMA 02/13/2012 BOESRAVANTHIOUT PHD, SANJEEV A 782.3 EDEMA 02/13/2012 BOEKHOUT PHD, SANJEEV A 782.3 EDEMA 02/13/2012 BOEKHOUT PHD, SANJEEV A 782.3 EDEMA 02/13/2012 BOEKHOUT PHD, SANJEEV A 782.3 EDEMA 02/13/2012 BOEKHOUT PHD, SANJEEV A 782.3 EDEMA 02/13/2012 BOEKHOUT PHD, SANJEEV A 782.3 EDEMA 02/13/2012 BOEKHOUT PHD, SANJEEV A 782.3 EDEMA 02/13/2012 BOEKHOUT PHD, SANJEEV A 782.3 EDEMA 02/13/2012 LEIDA ANDINO APRN T 782.3 EDEMA 02/13/2012 LEIDA ANDINO APRN T 782.3 EDEMA 02/13/2012 BOEKHOUT PHD, SANJEEV A 782.3 EDEMA 02/13/2012 BOEKHOUT PHD, SANJEEV A 782.3 EDEMA 02/13/2012 BOEKHOUT PHD, SANJEEV A 782.3 EDEMA 02/13/2012 BOEKHOUT PHD, SANJEEV A 782.3 EDEMA 02/13/2012 BOEKHOUT PHD, SANJEEV A 782.3 EDEMA 09/25/2013 MARSHALL DO, BETHANY K V03.82 PPV23 (PNEUMOVAX) DX 09/25/2013 MARSHALL DO, BETHANY K V04.81 FLU SHOT 09/25/2013 BOEOUT PHD, SANJEEV A V03.82 PPV23 (PNEUMOVAX) DX 09/25/2013 BOESRAVANTHIOUT PHD, SANJEEV A V04.81 FLU SHOT 09/25/2013 BOEOUT PHD, SANJEEV A V03.82 PPV23 (PNEUMOVAX) DX 09/25/2013 BOESRAVANTHIOUT PHD, SANJEEV A V04.81 FLU SHOT 09/25/2013 BOEOUT PHD, SANJEEV A V03.82 PPV23 (PNEUMOVAX) DX 09/25/2013 BOEKHOUT PHD, SANJEEV A V04.81 FLU SHOT 09/25/2013 LEIDA ANDINO APRN V03.82 PPV23 (PNEUMOVAX) DX 09/25/2013 LEIDA ANDINO APRN V04.81 FLU SHOT 09/25/2013 BOEOUT PHD, SANJEEV A V03.82 PPV23 (PNEUMOVAX) DX 09/25/2013 BOEOUT PHD, SANJEEV A V04.81 FLU SHOT 09/25/2013 BOEOUT PHD, SANJEEV A V03.82 PPV23 (PNEUMOVAX) DX 09/25/2013[facility] PHD, SANJEEV A V04.81 FLU SHOT 09/25/2013[facility] PHD, SANJEEV A V03.82 PPV23 (PNEUMOVAX) DX 09/25/2013[facility] PHD, SANJEEV A V04.81 FLU SHOT 09/25/2013 LEIDA ANDINO APRN V03.82 PPV23 (PNEUMOVAX) DX 09/25/2013 LEIDA ANDINO APRN V04.81 FLU SHOT 09/25/2013[facility] PHD, SANJEEV A V03.82 PPV23 (PNEUMOVAX) DX 09/25/2013[facility] PHD, SANJEEV A V04.81 FLU SHOT 09/25/2013[facility] PHD, SANJEEV A V03.82 PPV23 (PNEUMOVAX) DX 09/25/2013[facility] PHD, SANJEEV A V04.81 FLU SHOT 09/25/2013[facility] PHD, SANJEEV A V03.82 PPV23 (PNEUMOVAX) DX 09/25/2013 [facility] PHD, SANJEEV A V04.81 FLU SHOT 09/25/2013 [facility] PHD, SANJEEV A V03.82 PPV23 (PNEUMOVAX) DX 09/25/2013[facility] PHD, SANJEEV A V04.81 FLU SHOT 09/25/2013[facility] PHD, SANJEEV A V03.82 PPV23 (PNEUMOVAX) DX 09/25/2013[facility] PHD, SANJEEV A V04.81 FLU SHOT 09/25/2013 [facility] PHD, SANJEEV A V03.82 PPV23 (PNEUMOVAX) DX 09/25/2013[facility] PHD, SANJEEV A V04.81 FLU SHOT 09/25/2013[facility] PHD, SANJEEV A V03.82 PPV23 (PNEUMOVAX) DX 09/25/2013[facility] PHD, SANJEEV A V04.81 FLU SHOT 09/25/2013[facility] PHD, SANJEEV A V03.82 PPV23 (PNEUMOVAX) DX 09/25/2013 [facility] SANJEE[facility] A V04.81 FLU SHOT 09/25/2013[facility] PHD, SANJEEV A V03.82 PPV23 (PNEUMOVAX) DX 09/25/2013[facility] PHD, SANJEEV A V04.81 FLU SHOT 09/25/2013 LEIDA ANDINO APRN V03.82 PPV23 (PNEUMOVAX) DX 09/25/2013 THU SINGH, LEIDA Chavez V04.81 FLU SHOT 09/25/2013 THU SINGH, LEIDA Chavez V03.82 PPV23 (PNEUMOVAX) DX 09/25/2013 THU SINGH, LEIDA Chavez V04.81 FLU SHOT 09/25/2013 [facility] PHD, SANJEEV A V03.82 PPV23 (PNEUMOVAX) DX 09/25/2013 [facility] PHD, SANJEEV A V04.81 FLU SHOT 09/25/2013 [facility] PHD, SANJEEV A V03.82 PPV23 (PNEUMOVAX) DX 09/25/2013 [facility] PHD, SANJEEV A V04.81 FLU SHOT 09/25/2013 [facility] PHD, SANJEEV A V03.82 PPV23 (PNEUMOVAX) DX 09/25/2013 [facility] PHD, SANJEEV A V04.81 FLU SHOT 09/25/2013 [facility] PHD, SANJEEV A V03.82 PPV23 (PNEUMOVAX) DX 09/25/2013 [facility] PHD, SANJEEV A V04.81 FLU SHOT 09/25/2013 [facility] PHD, SANJEEV A V03.82 PPV23 (PNEUMOVAX) DX 09/25/2013 [facility] PHD, SANJEEV A V04.81 FLU SHOT 02/12/2014 THU DAMAGE ASSESSORLEIDA V74.1 TB SCREENING 02/12/2014 [facility] PHD, SANJEEV A V74.1 TB SCREENING 02/12/2014 [facility] PHD, SANJEEV A V74.1 TB SCREENING 02/12/2014 [facility] PHD, SANJEEV A V74.1 TB SCREENING 02/12/2014 [facility] PHD, SANJEEV A V74.1 TB SCREENING 02/12/2014 [facility] PHD, SANJEEV A V74.1 TB SCREENING 02/12/2014 [facility] PHD, SANJEEV A V74.1 TB SCREENING 02/12/2014 [facility] PHD, SANJEEV A V74.1 TB SCREENING 02/12/2014 [facility] PHD, SANJEEV A V74.1 TB SCREENING 02/12/2014 [facility] PHD, SANJEEV A V74.1 TB SCREENING 02/12/2014 THU DAMAGE ASSESSOR, LEIDA Chavez V74.1 TB SCREENING 02/12/2014 LEIDA ANDINO APRN V74.1 TB SCREENING 02/12/2014 [facility] PHD, SANJEEV Cm V74.1 TB SCREENING 02/12/2014 [facility] PHD, SANJEEV Cm V74.1 TB SCREENING 02/12/2014 [facility] PHD, SANJEEV A V74.1 TB SCREENING 02/12/2014 [facility] PHD, SANEJEV Cm V74.1 TB SCREENING 02/12/2014 [facility] PHD, SANJEEV A V74.1 TB SCREENING 09/29/2014 THU SINGH LEIDA Kathy 788.31 URGE INCONTINENCE 09/29/2014 LEIDA ANDINO APRN 788.31 URGE INCONTINENCE 09/29/2014 [facility] PHD, SANJEEV A 788.31 URGE INCONTINENCE 09/29/2014 [facility] PHD, SANJEEV A 788.31 URGE INCONTINENCE 09/29/2014 [facility] PHD, SANJEEV Cm 788.31 URGE INCONTINENCE 09/29/2014 LENIN PHD, SANJEEV Cm 788.31 URGE INCONTINENCE 09/29/2014 LENIN PHD, SANJEEV Cm 788.31 URGE INCONTINENCE 11/03/2017 ELEAZAR VILLATORO Ot Z12.31 ENCNTR SCREEN MAMMOGRAM FOR MALIGNANT NE 12/06/2018 KENTRELL JOHNSON DO Ot Z01.818 ENCOUNTER FOR OTHER PREPROCEDURAL EXAMIN 12/11/2018 ELEAZAR VILLATORO Ot Z12.31 ENCNTR SCREEN MAMMOGRAM FOR MALIGNANT NE Procedures Code [place] [address] INDIV PSYTX 45/50 MIN 09/19/2012 37860 INDIV PSYTX 45/50 MIN 10/15/2012 59322 INDIV PSYTX 45/50 MIN 11/02/2012 43297 PSYTX PT&/FAMILY 45 MINUTES 12/14/2012 31122 PSYTX PT&/FAMILY 45 MINUTES 01/31/2013 08644 PSYTX PT&/FAMILY 45 MINUTES 02/27/2013 82820 PSYTX PT&/FAMILY 45 MINUTES 03/27/2013 89375 ROUTINE VENIPUNCTURE 04/02/2013 63080 CBC 04/02/2013 06904 CMP 04/02/2013 45684 LIPID PANEL 04/02/2013 1758144 GFR CALC (RESULT ONLY) 04/02/2013 44002 TSH 04/03/2013 12854 PSYTX PT&/FAMILY 45 MINUTES 04/09/2013 64527 PSYTX PT&/FAMILY 45 MINUTES 04/23/2013 38499 PSYTX PT&/FAMILY 45 MINUTES 05/23/2013 91116 PSYTX PT&/FAMILY 45 MINUTES 06/24/2013 73837 PSYTX PT&/FAMILY 45 MINUTES 07/09/2013 13198 PSYTX PT&/FAMILY 45 MINUTES 08/05/2013 08727 PSYTX PT&/FAMILY 45 MINUTES 09/20/2013 G0008 FLU ADMINISTRATION ( MEDICARE ONLY) 09/25/2013 56392 PSYTX PT&/FAMILY 45 MINUTES 10/09/2013 38575 PSYTX PT&/FAMILY 45 MINUTES 10/24/2013 56912 PSYTX PT&/FAMILY 45 MINUTES 11/15/2013 55163 PSYTX PT&/FAMILY 45 MINUTES 12/02/2013 18931 PSYTX PT&/FAMILY 45 MINUTES 12/13/2013 81792 PSYTX PT&/FAMILY 45 MINUTES 12/27/2013 36192 PSYTX PT&/FAMILY 45 MINUTES 02/11/2014 10207 TB TEST INTRADERMAL 02/12/2014 92670 PSYTX PT&/FAMILY 45 MINUTES 02/27/2014 94309 PSYTX PT&/FAMILY 45 MINUTES 04/10/2014 62015 PSYTX PT&/FAMILY 45 MINUTES 05/08/2014 73646 PSYTX PT&/FAMILY 45 MINUTES 05/29/2014 61058 PSYTX PT&/FAMILY 45 MINUTES 07/11/2014 52986 PSYTX PT&/FAMILY 45 MINUTES 08/04/2014 34593 PSYTX PT&/FAMILY 45 MINUTES 08/18/2014 21372 PSYTX PT&/FAMILY 45 MINUTES 09/04/2014 21810 PSYTX PT&/FAMILY 45 MINUTES 09/19/2014 93529 UA LONG DIP 09/29/2014 85954 PSYTX PT&/FAMILY 45 MINUTES 10/20/2014 94791 PSYTX PT&/FAMILY 45 MINUTES 11/18/2014 30673 PSYTX PT&/FAMILY 45 MINUTES 12/15/2014 60904 PSYTX PT&/FAMILY 45 MINUTES 03/03/2015 Results Test Result Range SUREPATH PAP AND HPV mRNA E6/E7 - 10/17/17 11:59 CLINICAL INFORMATION: NRG LMP: MENOPAUSAL NRG PREV. PAP: NRG PREV. BX: NRG SOURCE: [employer] NRG STATEMENT OF ADEQUACY: NRG INTERPRETATION/RESULT: NRG ELECTRICAL SIGN WIRER: [place] HPV mRNA E6/E7, SUREPATH VIAL Not Detected NOT DETECTED SPECIMEN ID NOTIFICATION$MISSING SECOND ID - 10/17/17 11:59 COMMENT: NRG Encounters ACCT No. Visit Date/Time Discharge Status Pt. Type Provider Facility Loc./Unit Complaint [id number] 03/03/2015 15:01:00 03/03/2015 23:59:59 ABRAM Outpatient SANJEEV PHELPS PHD [id number] 01/22/2015 08:05:00 01/22/2015 23:59:59 ABRAM Outpatient SANJEEV PHELPS PHD [id number] 12/15/2014 09:01:00 12/15/2014 23:59:59 CLS Outpatient SANJEEV PHELPS PHD [id number] 11/18/2014 09:49:00 11/18/2014 23:59:59 CLS Outpatient SANJEEV PHELPS PHD [id number] 10/20/2014 11:51:00 10/20/2014 23:59:59 CLS Outpatient SANJEEV PHELPS PHD [id number] 09/29/2014 10:03:00 09/29/2014 23:59:59 CLS Outpatient LEIDA ANDINO APRN [id number] 09/29/2014 10:03:00 09/29/2014 23:59:59 CLS Outpatient LEIDA ANDINO APRN [id number] 09/19/2014 12:52:00 09/19/2014 23:59:59 CLS Outpatient SANJEEV PHELPS PHD [id number] 09/04/2014 10:48:00 09/04/2014 23:59:59 CLS Outpatient SANJEEV PHELPS PHD [id number] 08/18/2014 09:33:00 08/18/2014 23:59:59 CLS Outpatient SANJEEV PHELPS PHD [id number] 08/04/2014 09:30:00 08/04/2014 23:59:59 CLS Outpatient SANJEEV PHELPS PHD [id number] 07/11/2014 11:42:00 07/11/2014 23:59:59 CLS Outpatient CHITOSRAVANTHIOUT SANJEEV SMALL [id number] 05/29/2014 08:02:00 05/29/2014 23:59:59 CLS Outpatient CHITOSRAVANTHIOUT SANJEEV SMALL [id number] 05/08/2014 07:50:00 05/08/2014 23:59:59 CLS Outpatient DENISAOUT SANJEEV SMALL [id number] 04/10/2014 08:05:00 04/10/2014 23:59:59 CLS Outpatient DENISAOUT SANJEEV SMALL [id number] 02/26/2014 14:30:00 02/26/2014 23:59:59 CLS Outpatient DENISAOUT SANJEEV SMALL [id number] 02/12/2014 09:15:00 02/12/2014 23:59:59 CLS Outpatient LEIDA ANDINO APRN Kathy [id number] 02/10/2014 13:14:00 02/10/2014 23:59:59 CLS Outpatient DENISAOUT SANJEEV SMALL [id number] 12/26/2013 10:12:00 12/26/2013 23:59:59 CLS Outpatient CHITOSRAVANTHIOUT SANJEEV SMALL [id number] 12/12/2013 09:59:00 12/12/2013 23:59:[address] [facility] SANJEEV SMALL [id number] 11/29/2013 15:14:00 11/29/2013 23:59:59 CLS Outpatient LEIDA ANDINO APRN [id number] 11/15/2013 10:22:00 11/15/2013 23:59:59 CLS Outpatient SANJEEV PHELPS PHD [id number] 10/24/2013 09:46:00 10/24/2013 23:59:59 CLS Outpatient SANJEEV PHELPS PHD [id number] 10/08/2013 08:08:00 10/08/2013 23:59:59 CLS Outpatient SANJEEV PHELPS PHD [id number] 09/25/2013 08:07:00 09/25/2013 23:59:59 CLS Outpatient BETHANY MARSHALL DO [id number] 09/19/2013 07:58:00 09/19/2013 23:59:59 CLS Outpatient SANJEEV PHELPS PHD [id number] 08/01/2013 08:04:00 08/01/2013 23:59:59 CLS Outpatient SANJEEV PHELPS PHD Toi [id number] 01/30/2013 09:09:00 01/30/2013 23:59:59 CLS Outpatient SANJEEV PHELPS PHD Toi [id number] 12/13/2012 07:57:00 12/13/2012 23:59:59 CLS Outpatient SANJEEV PHELPS PHD Toi [id number] 11/02/2012 08:02:00 11/02/2012 23:59:59 CLS Outpatient SANJEEV PHELPS PHD Toi [id number] 10/11/2012 08:10:00 10/11/2012 23:59:59 CLS Outpatient [id number] 08/24/2012 07:40:00 08/24/2012 23:59:59 CLS Outpatient SANJEEV PHELPS PHD [id number] 07/04/2013 08:08:00 Document Registration [id number] 06/20/2013 08:09:00 Document Registration [id number] 05/22/2013 07:58:00 Document Registration [id number] 04/22/2013 08:10:00 Document Registration [id number] 04/08/2013 08:07:00 Document Registration [id number] 04/02/2013 13:26:00 Document Registration [id number] 03/26/2013 08:02:00 Document Registration [id number] 03/19/2013 15:52:00 Document Registration [id number] 02/26/2013 07:57:00 Document Registration [id number] 10/11/2013 16:18:24 ACT Document Registration [id number] 12/06/2018 05:34:00 12/06/2018 10:15:00 DIS Outpatient KENTRELL JOHNSON DO [facility] PREOP HYSTEROSCOPY AND D C [id number] 10/20/2017 10:58:00 10/20/2017 23:59:59 CLS Outpatient ELEAZAR VILLATORO BUSINESS MGR [facility] RAD SCREENING [id number] 12/11/2018 10:06:00 ACT Outpatient KENTRELL JOHNSON DO [facility] SDC POSTMENOPAUSAL BLEEDING, POLYP [id number] 11/09/2018 10:00:00 11/09/2018 23:59:59 CLS Outpatient LEIDA ANDINO APRN [facility] [id number] 10/17/2017 10:40:00 Document Registration
[2018-12-11] MEDS: LACTATED RINGERS 1,000 ML IV PRN ×2 (11:02→14:48)
[2018-12-11 11:06] LABS: BASOPHILS % (AUTO) 0 % (0-10); EOSINOPHILS # (AUTO) 0.1 10^3/uL (0.0-0.3); EOSINOPHILS % (AUTO) 1 % (0-10); HEMATOCRIT 40 % (35-52); HEMOGLOBIN 13.3 G/DL (11.5-16.0); LYMPHOCYTES # (AUTO) 1.3 X 10^3 (1.0-4.0); LYMPHOCYTES % (AUTO) 30 % (12-44); MEAN CORPUSCULAR HEMOGLOBIN 31 PG (25-34); MEAN CORPUSCULAR HGB CONC 33 G/DL (32-36); MEAN CORPUSCULAR VOLUME 93 FL (80-99); MEAN PLATELET VOLUME 11.6 FL (7.4-10.4); MONOCYTES # (AUTO) 0.4 X 10^3 (0.0-1.0); MONOCYTES % (AUTO) 10 % (0-12); NEUTROPHILS # (AUTO) 2.7 X 10^3 (1.8-7.8); NEUTROPHILS % (AUTO) 59 % (42-75); PLATELET COUNT 233 10^3/uL (130-400); WHITE BLOOD COUNT 4.5 10^3/uL (4.3-11.0)
[2018-12-11 11:14] VITALS: BP 115/88
[2018-12-11] MEDS ORDERED: LIDOCAINE PF 2% 5 ML (XYLOCAINE) VIAL ONE (12:23)
[2018-12-11] MEDS ORDERED: proPOfol 200 MG/20 ML (DIPRIVAN) VIAL IV ONE (12:23)
[2018-12-11] MEDS ORDERED: MIDAZOLAM 2 MG/2 ML (VERSED) VIAL ONE (12:24)
[2018-12-11] MEDS ORDERED: fentaNYL INJECTION 100 MCG/2 ML AMP ONE (12:24)
[2018-12-11] MEDS ORDERED: SEVOFLURANE (ULTANE) 15 ML INHAL SOLN ONE ×4 (12:27→14:40)
[2018-12-11] MEDS ORDERED: DEXAMETHASONE 10 MG/ML (DECADRON) 1 ML VIAL ONE (12:27)
[2018-12-11] MEDS ORDERED: ONDANSETRON 4 MG/2 ML (SDV) Z0FRAN ONE (12:27)
--- NOTE | 2018-12-11 13:40 | Progress Note-Pre Operative ---
Pre-Operative Progress Note H&P Reviewed The H&P was reviewed, patient examined and no changes noted. Date Seen by Provider: Dec 11, 2018 Time Seen by Provider: 13:30 Date H&P Reviewed: Dec 11, 2018 Time H&P Reviewed: 11:00 Pre-Operative Diagnosis: endometrial polyp, post menopausal bleeding, simple hyperplasia with atypia KENTRELL JOHNSON DO Dec 11, 2018 13:40
--- NOTE | 2018-12-11 15:03 | NUR ---
feeding assessment on wrong patient. patient npo
--- NOTE | 2018-12-11 15:14 | Operative Report ---
Operative Report Date of Procedure/Surgery Dec 11, 2018 Surgeon (s) KENTRELL JOHNSON DO Rn Womens Health (s): NA Post-Operative Diagnosis Same Procedure Performed hysteroscopy, dilation and curettage Description of Procedure Anesthesia Type: General Estimated blood loss (mL): minimal Specimen(s) collected/removed endometrial curettings Description of the Procedure with informed consent the patient was taken to the operative room where general anesthesia was found to be adequate. she was prepped and draped in the usual sterile fashion in the dorsolithotomy position. the bladder was drained with a straight cath of clear yellow urine. The speculum was placed in the vagina. The cervix was grasped with a tenaculum and the uterus was sounded. The cervi was gently dilated and then the hysteroscope was inserted. There were multiple polyps and proliferative appearing tissue. I removed the scope and did a curettage. I removed a moderate amount of tissue. I then replaced the scope and determined that the abnormal tissue was completely removed. I removed the instruments from the vagina and there was good hemostasis. The patient was awakened and taken to recovery in stable condition. Findings of the Procedure irregular, thickened endometrium. Blood clots in the endometrial canal Deficit 640 ml Allergies and Home Medications Allergies Coded Allergies: No Known Drug Allergies (Unverified , 12/06/18) Home Medications Amlodipine Besylate 10 Mg Tablet, 10 MG PO DAILY, (Reported) Diazepam 10 Mg Tablet, 10 MG PO BID PRN for ANXIETY, (Reported) Fluticasone/Salmeterol 1 Each Blst.w.dev, 1 EACH IH BID, (Reported) Hydrocodone Bit/Acetaminophen 1 Tab Tab, 1-2 TAB PO Q6H PRN for PAIN-MODERATE Prescribed by: KENTRELL JOHNSON on 12/11/181526 Ibuprofen 600 Mg Tablet, 600 MG PO Q6H PRN for PAIN-MILD Prescribed by: KENTRELL JOHNSON on 12/11/181526 Megestrol Acetate 40 Mg Tablet, 40 MG PO BID Prescribed by: KENTRELL JOHNSON on 12/11/181526 Pantoprazole Sodium 40 Mg Tablet.dr, 40 MG PO DAILY, (Reported) Propranolol HCl 20 Mg Tablet, 20 MG PO BID, (Reported) Sertraline HCl 100 Mg Tablet, 200 MG PO DAILY, (Reported) Solifenacin Succinate 10 Mg Tablet, 10 MG PO DAILY, (Reported) Patient Home Medication List Home Medication List Reviewed: Yes KENTRELL JOHNSON DO Dec 11, 2018 15:13
[2018-12-11] MEDS ORDERED: ONDANSETRON 4 MG/2 ML (SDV) Z0FRAN IVP PRN (15:15)
[2018-12-11] MEDS ORDERED: morphine INJ 10 MG/ML 1ML (SYR OR VIAL) IVP ONE (15:15)
[2018-12-11] MEDS ORDERED: HYDROmorphone 2 MG/ML VIAL (DILAUDID) IV ONE (15:15)
[2018-12-11] MEDS ORDERED: KETOROLAC 30 MG/ML VIAL IVP ONE (15:15)
[2018-12-11] MEDS ORDERED: PROMETHAZINE INJ 25 MG/ML (PHENERGAN) AMP IVP ONE (15:15)
[2018-12-11] MEDS ORDERED: KETOROLAC 30 MG/ML VIAL IVP SCH (15:15)
[2018-12-11] MEDS ORDERED: MEPERIDINE (DEMEROL) INJ 50 MG/ML IVP ONE (15:15)
[2018-12-11] MEDS ORDERED: IBUP-1773 PO (15:27)
[2018-12-11] MEDS ORDERED: MEGE40TA PO (15:27)
[2018-12-11] MEDS ORDERED: ACHD5005 PO (15:27)
--- NOTE | 2018-12-11 15:36 | Anesthesia-General Post-Op ---
General Patient Condition Mental Status/LOC: Same as Preop Cardiovascular: Satisfactory Nausea/Vomiting: Absent Respiratory: Satisfactory Pain: Controlled Complications: Absent Post Op Complications Complications None Follow Up Care/Instructions Patient Instructions None needed. Anesthesia/Patient Condition Patient Condition Patient is doing well, no complaints, stable vital signs, no apparent adverse anesthesia problems. SHALONDA BRAXTON DO Dec 11, 2018 15:36
--- NOTE | 2018-12-11 15:38 | Discharge Inst-Women's Service ---
Discharge Inst-Women's Serv Depart Medication/Instructions New, Converted or Re-Newed RX: RX on Chart Final Diagnosis post menopausal bleeding, endometrial polyp, simple hyperplasia with atypia Consults/Follow Up Additional Follow Up: Yes (7-[address] Johnson) Activity Activity: Activity as Tolerated Driving Instructions: No Driving for 24 Hours NO SMOKING: NO SMOKING Nothing Inside Vagina: No Douching, No [place], No Tampons Diet Discharge Diet: No Restrictions Symptoms to Report to : Swelling Increased, Bleeding Excessive, Fever Over 101 Degrees F, Vaginal Bleeding Increase, Cramps in Feet or Legs, Vaginal Discharge Foul For Any Problems or Questions: Contact Your Physician KENTRELL JOHNSON DO Dec 11, 2018 15:37
[2018-12-11 16:00] VITALS: BP 131/78
--- NOTE | 2018-12-11 16:00 | NUR ---
TO AMB SURG FROM PAR PER CART. ALERT, RATES PELVIC DULL, CRAMPY DISCOMFORT 2. V-PAD IN PLACE WITH MODERATE AMOUNT OF BRIGHT RED BLOODY DRAINAGE ON PAD. PO FLUIDS PROVIDED.
[2018-12-11 16:30] VITALS: BP 125/71
[2018-12-11 17:00] VITALS: BP 120/80
--- NOTE | 2018-12-11 17:00 | NUR ---
HAS BEEN UP TO BR WITH ASSIST, GAIT STEADY. RATES PELVIC DISCOMFORT 1-2. CONTINUES TO HAVE MODERATE AMOUNT OF BRIGHT RED BLOODY DRAINAGE TO V-PAD. VOIDED, PAD CHANGED, ASSIST BACK TO ROOM FOR DISMISSAL.
[2018-12-11 17:11] VITALS: BP 120/80
== END 2018-12-11 17:11 | disposition home or self-care (01) ==
LOC: SDC 10:06
PROVIDERS: ATTEND Obstetrics & Gynecology
DX: N95.0 Postmenopausal bleeding (principal); N85.01 Benign endometrial hyperplasia; I10 Essential (primary) hypertension; J44.9 Chronic obstructive pulmonary disease, unspecified; K21.9 Gastro-esophageal reflux disease without esophagitis; F32.9 Major depressive disorder, single episode, unspecified; E66.01 Morbid (severe) obesity due to excess calories; Z68.41 Body mass index [BMI] 40.0-44.9, adult; Z79.899 Other long term (current) drug therapy; Z87.891 Personal history of nicotine dependence
CPT/HCPCS: 36415; 81000; 85025; 86850; 86900; 86901; 87081; 88305; 94664

== ENCOUNTER 2019-09-05 15:47 | Emergency (ER) | payer MEDICAID ==
[~2019-09-05] VITALS: Ht 167.4 cm; Wt 126.6 kg
[~2019-09-05 15:47] MED LIST changes: +ACHD5005 PO; +IBUP-1773 PO; +MEGE40TA PO
--- NOTE | 2019-09-05 16:47 | ED GU-Female ---
General Chief Complaint: APPLICATION SUPPORT LEAD Stated Complaint: PASSING BLOOD CLOTS Nursing Triage Note: AMB TO TRIAGE REPORTS HAD SOME BACK PAIN HAD GUSH OF BLOOD FROM VAG AREA NOW CRAMPING AND PASSING CLOTS. Nursing Sepsis Screen: No Definite Risk Source: patient Exam Limitations: no limitations (CRUZ LAMBERT MD) History of Present Illness Date Seen by Provider: Sep 05, 2019 Time Seen by Provider: 16:30 Initial Comments Here with report of passing large amount of blood from the vagina. Onset overnight. States that she woke up in a pool of blood. She had to take her daughter to a doctor's appointment so did not seek help earlier today. This evening, she knows that she is still passing clots in her underwear. Complains of abdominal bloating and pain. She had D&C for cysts and bleeding not too long ago and she has been on suppressive medicine since. She reported that they took out an ovary and tube but op report indicates polypectomy and D&C. Since starting that she noted the abdominal bloating. She has appointment with Dr. Johnson in November for recheck. She has not called Dr. Johnson regarding the bleeding today. Timing/Duration: other (last night) Severity/Quality: moderate, cramping Location: suprapubic Radiation: RLQ, LLQ, back Activities at Onset: none Sexual [place] History: not active Modifying Factors: Worsens With Movement Associated Symptoms: abdominal pain; No dysuria, No fever/chills; nausea/vomiting; No urinary frequency (CRUZ LAMBERT MD) Allergies and Home Medications Allergies Coded Allergies: No Known Drug Allergies (Unverified , 12/06/18) Home Medications Amlodipine Besylate 10 Mg Tablet, 10 MG PO DAILY, (Reported) Diazepam 10 Mg Tablet, 10 MG PO BID PRN for ANXIETY, (Reported) Fluticasone/Salmeterol 1 Each Blst.w.dev, 1 EACH IH BID, (Reported) Hydrocodone Bit/Acetaminophen 1 Tab Tab, 1-2 TAB PO Q6H PRN for PAIN-MODERATE Prescribed by: KENTRELL JOHNSON on 12/11/18 152 Ibuprofen 600 Mg Tablet, 600 MG PO Q6H PRN for PAIN-MILD Prescribed by: KENTRELL JOHNSON on 12/11/18 1527 Megestrol Acetate 40 Mg Tablet, 40 MG PO BID Prescribed by: KENTRELL JOHNSON on 12/11/18 1527 Pantoprazole Sodium 40 Mg Tablet.dr, 40 MG PO DAILY, (Reported) Propranolol HCl 20 Mg Tablet, 20 MG PO BID, (Reported) Sertraline HCl 100 Mg Tablet, 200 MG PO DAILY, (Reported) Solifenacin Succinate 10 Mg Tablet, 10 MG PO DAILY, (Reported) Patient Home Medication List Home Medication List Reviewed: Yes (CRUZ LAMBERT MD) Review of Systems Review of Systems Constitutional: see HPI; No chills, No fever EENTM: no symptoms reported Respiratory: No cough; dyspnea on exertion Cardiovascular: No chest pain, No edema Gastrointestinal: abdominal pain; No nausea, No vomiting Genitourinary: see HPI; denies dysuria : No Musculoskeletal: no symptoms reported Skin: no symptoms reported Psychiatric/Neurological: No Symptoms Reported (CRUZ LAMBERT MD) All Other Systemes Reviewed Negative Unless Noted: Yes (CRUZ LAMBERT MD) Past Ecldrup-Hkpmzl-Nnpaia Hx Past Med/Social Hx: Reviewed Nursing Past Med/Soc Hx (CRZU LAMBERT MD) Patient Social History Alcohol Use: Denies Use Recreational Drug Use: No Smoking Status: Never a Smoker 2nd Hand Smoke Exposure: No Recent Foreign Travel: No Contact w/Someone Who Travel: No Recent Infectious Disease Expo: No Recent Hopitalizations: No (CRUZ LAMBERT MD) Immunizations Up To Date Tetanus Booster (TDap): Unknown Date of Influenza Vaccine: Aug 13, 2018 (CRUZ LAMBERT MD) Seasonal Allergies Seasonal Allergies: Yes (CRUZ LAMBERT MD) Past Medical History Surgeries: Yes (uterine polypectomy and D&C) Gallbladder Respiratory: Yes Asthma, COPD Cardiac: Yes Hypertension Neurological: No Reproductive Disorders: No Female Reproductive Disorders: Menstrual Problems Sexually Transmitted Disease: No HIV/AIDS: No Genitourinary: No Gastrointestinal: Yes Gastroesophageal Reflux Musculoskeletal: No Endocrine: No HEENT: Yes (GLASSES) Loss of Vision: Bilateral Hearing Impairment: Denies Cancer: No Psychosocial: Yes Anxiety, Depression Integumentary: No Blood Disorders: No Adverse Reaction/Blood Tranf: No (N/A) (CRUZ LAMBERT MD) Family Medical History Reviewed Nursing Family Hx (CRUZ LAMBERT MD) Completed stroke 19 MOTHER Diabetes mellitus 19 MOTHER Hypercholesterolemia 19 MOTHER Hypertension 19 FATHER Physical Exam Vital Signs Vital Signs - First Documented 09/05/19 15:51 Temp 35.7 Pulse 84 Resp 18 B/P (MAP) 147/94 (111) Pulse Ox 98 (VALENTÍN BARRIOS) Vital Signs Capillary Refill : Less Than 3 Seconds (CRUZ LAMBERT MD) Height, Weight, BMI Height: 5'6.00" Weight: 260lbs. 4.0oz. 118.510936je; 45.00 BMI Method:Stated General Appearance: WD/WN, no apparent distress HEENT: PERRL/EOMI, pharynx normal Neck: full range of motion, supple Cardiovascular: regular rate, rhythm, no murmur Respiratory: lungs clear, normal breath sounds Gastrointestinal: soft, distended, tenderness (lower abdomen) Pelvic: normal external exam, vaginal bleeding (small bruise but no active significant bleeding), other (large clot noted at cervical os) Back: normal inspection, no CVA tenderness, no vertebral tenderness Extremities: non-tender, normal inspection Neurologic/Psychiatric: alert, oriented x 3 Skin: normal color, warm/dry (CRUZ LAMBERT MD) Progress/Results/Core Measures Suspected Sepsis Recent Fever Within 48 Hours: No Infection Criteria Present: None New/Unexplained Altered Menta: No Sepsis Screen: No Definite Risk SIRS Temperature: Pulse: 84 Respiratory Rate: 18 Laboratory Tests 09/05/19 16:40: White Blood Count 8.6 Blood Pressure 147 /94 Mean: 111 Laboratory Tests 09/05/19 16:40: Creatinine 0.97, INR Comment 1.1, Platelet Count 247, Total Bilirubin 0.7 (CRUZ LAMBERT MD) Results/Orders Lab Results Laboratory Tests Test 09/05/19 16:40 Range/Units White Blood Count 8.6 4.3-11.0 10^3/uL Red Blood Count 4.57 4.35-5.85 10^6/uL Hemoglobin 13.9 11.5-16.0 G/DL Hematocrit 42 35-52 % Mean Corpuscular Volume 92 80-99 FL Mean Corpuscular Hemoglobin 30 25-34 PG Mean Corpuscular Hemoglobin Concent 33 32-36 G/DL Red Cell Distribution Width 13.7 10.0-14.5 % Platelet Count 247 130-400 10^3/uL Mean Platelet Volume 12.2 H 7.4-10.4 FL Neutrophils (%) (Auto) 66 42-75 % Lymphocytes (%) (Auto) 26 12-44 % Monocytes (%) (Auto) 8 0-12 % Eosinophils (%) (Auto) 1 0-10 % Basophils (%) (Auto) 0 0-10 % Neutrophils # (Auto) 5.6 1.8-7.8 X 10^3 Lymphocytes # (Auto) 2.2 1.0-4.0 X 10^3 Monocytes # (Auto) 0.7 0.0-1.0 X 10^3 Eosinophils # (Auto) 0.1 0.0-0.3 10^3/uL Basophils # (Auto) 0.0 0.0-0.1 10^3/uL Prothrombin Time 14.8 H 12.2-14.7 SEC INR Comment 1.1 0.8-1.4 Activated Partial Thromboplast Time 24 24-35 SEC Sodium Level 137 135-145 MMOL/L Potassium Level 4.0 3.6-5.0 MMOL/L Chloride Level 104 98-107 MMOL/L Carbon Dioxide Level 22 21-32 MMOL/L Anion Gap 11 5-14 MMOL/L Blood Urea Nitrogen 13 7-18 MG/DL Creatinine 0.97 0.60-1.30 MG/DL Estimat Glomerular Filtration Rate > 60 BUN/Creatinine Ratio 13 Glucose Level 176 H 70-105 MG/DL Calcium Level 9.4 8.5-10.1 MG/DL Corrected Calcium 9.5 8.5-10.1 MG/DL Total Bilirubin 0.7 0.1-1.0 MG/DL Aspartate Amino Transf (AST/SGOT) 27 5-34 U/L Alanine Aminotransferase (ALT/SGPT) 35 0-55 U/L Alkaline Phosphatase 84 40-136 U/L Total Protein 8.2 6.4-8.2 GM/DL Albumin 3.9 3.2-4.5 GM/DL (VALENTÍN BARRIOS) Medications Given in ED Current Medications Medications Dose Ordered Sig/Shayne Route Start Time Stop Time Status Last Admin Dose Admin Iohexol 100 ml ONCE ONCE IV 09/05/19 18:30 09/05/19 18:31 DC 09/05/19 18:24 100 ML Ondansetron HCl 8 mg ONCE ONCE IVP 09/05/19 17:30 10/31/19 17:31 DC 09/05/19 17:22 8 MG Sodium Chloride 100 ml ONCE ONCE IV 09/05/19 18:30 09/05/19 18:31 DC 09/05/19 18:24 80 ML (VALENTÍN BARRIOS) Vital Signs/I&O 09/05/19 15:51 Temp 35.7 Pulse 84 Resp 18 B/P (MAP) 147/94 (111) Pulse Ox 98 (VALENTÍN BARRIOS) Vital Signs/I&O Capillary Refill : Less Than 3 Seconds (CRUZ LAMBERT MD) Blood Pressure Mean: 111 POS Progress Note : Progress Note Seen and evaluated. IV, labs and pelvic exam ordered. Monitor patient. 1745: Fentanyl 50 g IV given for pain. Zofran 8 mg IV given for nausea and vomiting. CT abdomen and pelvis ordered. Normal saline 1 L bolus. Monitor patient. (CRUZ LAMBERT MD) Progress Note : Time: 18:54 Progress Note Assume care of the patient at shift change. CT results are back. Demonstrates concerns for malignant appearance. She had her previous D&C done by Dr. Johnson so plan to will consult gyne by phone to setup outpt fu. (VALENTÍN BARRIOS) Diagnostic Imaging Diagonstic Imaging: CT Plain Films/CT/US/NM/MRI: abdomen, pelvis Comments NAME: KATI CHANG [facility] REC#: [id number] PT STATUS: REG ER : 1955 PHYSICIAN: CRUZ LAMBERT MD ADMIT DATE: 09/05/19/ER Draft POSDate of Exam:09/05/19 CT ABDOMEN/PELVIS W PROCEDURE: CT abdomen and pelvis with contrast. TECHNIQUE: Multiple contiguous axial images were obtained through the abdomen and pelvis after administration of intravenous contrast. Auto Exposure Controls were utilized during the CT exam to meet ALARA standards for radiation dose reduction. INDICATION: Vaginal bleeding with cramping. COMPARISON: 09/12/2011. FINDINGS: There is considerable enlargement of the uterus which appears to be diffusely abnormal in appearance with the fundus measuring approximately 11 cm in diameter. There is no evidence of pelvic adenopathy. No adnexal masses are seen. Bowel gas pattern appears normal throughout the abdomen. There is hepatic steatosis with hepatomegaly. Gallbladder is absent. Pancreas is normal. Spleen is normal. The adrenal glands are normal. There are several bilateral sub 5 mm calculi scattered throughout the calyces which are nonobstructing. The ureters are normal. The bladder is not distended. There is noted jony mesentery in the mesenteric root which was present previously and not significantly changed. There are a few mildly enlarged lymph nodes also present which have not changed. No bony lesions demonstrated. IMPRESSION: 1. Abnormal enlarged uterus. This does not have typical appearance of a uterine fibroid. Malignancy is of concern. Follow-up is needed. Recommend gynecological consult. 2. Jony mesenteric root with mild adenopathy is stable since 2010. 3. Gallbladder is absent. Hepatic steatosis with mild hepatomegaly again noted. 4. Bowel gas pattern appears normal. Dictated on workstation # [id number] Dict: 09/05/191836 Trans: 09/05/191845 [id number] [id number] Interpreted by: GALDINO GEIGER MD Electronically signed by: Reviewed: Reviewed by Me (VALENTÍN BARRIOS) Consults Consults : Consulting Physician: KAREN BLAKE DO Consults Notes Discussed the case previous workup by Dr. Johnson and pathology results for hyperplasia without atypia. Since her hemoglobin is good and her vital signs are stable he would recommend following up tomorrow morning with Dr. Arceo by phone to try and get on the surgery Center schedule tomorrow or as soon as possible. Counseled return precautions. (VALENTÍN BARRIOS) Departure Impression Primary Impression: Abnormal uterine bleeding unrelated to menstrual cycle Additional Impression: History of endometrial hyperplasia Disposition: HOME, SELF-CARE Condition: Stable Departure-Patient Inst. Decision time for Depature: 19:14 (VALENTÍN BARRIOS) Referrals: LEIDA ANDINO (PCP) Primary Care Physician KENTRELL JOHNSON DO Patient Instructions: IRREGULAR VAGINAL BLEEDING Add. Discharge Instructions: Please call Dr. Maddox tomorrow morning first thing during business hours and request immediate follow-up. If you begin to have chest pain, shortness of breath or other worrisome symptoms please return to the ER. If you have nausea take one tablet of Zofran every 6 hours as needed. If you have pain you may use Tylenol and heating pads. If you have breakthrough pain that limits your ability to function then you may use the hydrocodone one tablet every 6 hours as needed. It will cause drowsiness and constipation. All discharge instructions reviewed with patient and/or family. Voiced understanding. Scripts Ondansetron (Ondansetron Odt) 4 Mg Tab.rapdis 4 MG PO Q6H PRN for NAUSEA/VOMITING, #8 TAB 0 Refills Prov: VALENTÍN BARRIOS 09/05/19 Hydrocodone Bit/Acetaminophen (Hydrocodone/Acetaminophen 5/325mg Tablet) 1 Tab Tab 1 EACH PO Q4-6HR PRN for PAIN-MODERATE MDD 10 for 3 Days, #12 TAB 0 Refills Prov: VALENTÍN BARRIOS 09/05/19 Copy Copies To 1: KENTRELL JOHNSON TIMOTHY D MD Sep 05, 2019 16:47 VALENTÍN MANNING Sep 05, 2019 18:59 POS
[2019-09-05 16:49] LABS: BASOPHILS % (AUTO) 0 % (0-10); EOSINOPHILS # (AUTO) 0.1 10^3/uL (0.0-0.3); EOSINOPHILS % (AUTO) 1 % (0-10); HEMATOCRIT 42 % (35-52); HEMOGLOBIN 13.9 G/DL (11.5-16.0); LYMPHOCYTES # (AUTO) 2.2 X 10^3 (1.0-4.0); LYMPHOCYTES % (AUTO) 26 % (12-44); MEAN CORPUSCULAR HEMOGLOBIN 30 PG (25-34); MEAN CORPUSCULAR HGB CONC 33 G/DL (32-36); MEAN CORPUSCULAR VOLUME 92 FL (80-99); MEAN PLATELET VOLUME 12.2 FL (7.4-10.4); MONOCYTES # (AUTO) 0.7 X 10^3 (0.0-1.0); MONOCYTES % (AUTO) 8 % (0-12); NEUTROPHILS # (AUTO) 5.6 X 10^3 (1.8-7.8); NEUTROPHILS % (AUTO) 66 % (42-75); PLATELET COUNT 247 10^3/uL (130-400); RED CELL DISTRIBUTION WIDTH 13.7 % (10.0-14.5); WHITE BLOOD COUNT 8.6 10^3/uL (4.3-11.0)
[2019-09-05 17:03] LABS: INR 1.1 (0.8-1.4); PROTHROMBIN TIME PATIENT 14.8 SEC (12.2-14.7)
[2019-09-05 17:10] LABS: ALANINE AMINOTRANSFERASE 35 U/L (0-55); ALBUMIN 3.9 GM/DL (3.2-4.5); ALKALINE PHOSPHATASE 84 U/L (40-136); BILIRUBIN,TOTAL 0.7 MG/DL (0.1-1.0); BUN/CREATININE RATIO 13; CALCIUM 9.4 MG/DL (8.5-10.1); CARBON DIOXIDE 22 MMOL/L (21-32); CHLORIDE 104 MMOL/L (98-107); CREATININE SERUM 0.97 MG/DL (0.60-1.30); GFR ESTIMATED > 60; GLUCOSE 176 MG/DL (70-105); SODIUM 137 MMOL/L (135-145); TOTAL PROTEIN 8.2 GM/DL (6.4-8.2)
[2019-09-05] MEDS ORDERED: NS IV 1000 ML 1,000 ML IV STA (17:16)
[2019-09-05] MEDS ORDERED: ONDANSETRON 4 MG/2 ML (SDV) Z0FRAN ONE (17:17)
[2019-09-05] MEDS ORDERED: ONDANSETRON 4 MG/2 ML (SDV) Z0FRAN IVP ONE (17:30)
[2019-09-05] MEDS: fentaNYL INJECTION 100 MCG/2 ML AMP IVP STA ×2 (17:32→17:46)
[2019-09-05] MEDS ORDERED: HOLD METFORMIN - RECEIVED CONTRAST 20 ML VIAL IV SCH (18:30)
[2019-09-05] MEDS ORDERED: IOHEXOL 350 MG/ML 100 ML (OMNIPAQUE 350) VIAL IV ONE (18:30)
[2019-09-05] MEDS ORDERED: NS 100 ML (IVPB) BAG IV ONE (18:30)
--- NOTE | 2019-09-05 18:47 | Diagnostic Imaging Report ---
PROCEDURE: CT abdomen and pelvis with contrast. TECHNIQUE: Multiple contiguous axial images were obtained through the abdomen and pelvis after administration of intravenous contrast. Auto Exposure Controls were utilized during the CT exam to meet ALARA standards for radiation dose reduction. INDICATION: Vaginal bleeding with cramping. COMPARISON: 09/12/2011. FINDINGS: There is considerable enlargement of the uterus which appears to be diffusely abnormal in appearance with the fundus measuring approximately 11 cm in diameter. There is no evidence of pelvic adenopathy. No adnexal masses are seen. Bowel gas pattern appears normal throughout the abdomen. There is hepatic steatosis with hepatomegaly. Gallbladder is absent. Pancreas is normal. Spleen is normal. The adrenal glands are normal. There are several bilateral sub 5 mm calculi scattered throughout the calyces which are nonobstructing. The ureters are normal. The bladder is not distended. There is noted jony mesentery in the mesenteric root which was present previously and not significantly changed. There are a few mildly enlarged lymph nodes also present which have not changed. No bony lesions demonstrated. IMPRESSION: 1. Abnormal enlarged uterus. This does not have typical appearance of a uterine fibroid. Malignancy is of concern. Follow-up is needed. Recommend gynecological consult. 2. Jony mesenteric root with mild adenopathy is stable since 2010. 3. Gallbladder is absent. Hepatic steatosis with mild hepatomegaly again noted. 4. Bowel gas pattern appears normal. Dictated by: Dictated on workstation # [id number]
--- NOTE | 2019-09-05 18:56 | NUR ---
report given to SUSAN Chambers
[2019-09-05] MEDS ORDERED: ONDA4TAB11 PO (19:21)
[2019-09-05] MEDS ORDERED: ACHD5005 PO (19:21)
[2019-09-05 19:30] VITALS: BP 174/104
[2019-09-05] MEDS ORDERED: HYDROcodone/APAP 5 MG/325 MG (LORTAB) TAB PO ONE (19:30)
== END 2019-09-05 19:32 | disposition home or self-care (01) ==
LOC: EDUNIT# 15:47 → ER 15:49
DX: N93.9 Abnormal uterine and vaginal bleeding, unspecified (principal); I10 Essential (primary) hypertension; J44.9 Chronic obstructive pulmonary disease, unspecified; F41.9 Anxiety disorder, unspecified; F32.9 Major depressive disorder, single episode, unspecified; K21.9 Gastro-esophageal reflux disease without esophagitis; Z87.42 Personal history of other diseases of the female genital tract; Z79.51 Long term (current) use of inhaled steroids; Z82.49 Family history of ischemic heart disease and other diseases of the circulatory system
CPT/HCPCS: 36415; 74177; 80053; 85025; 85610; 85730; 86850; 86900; 86901

== ENCOUNTER 2019-10-17 14:46 | Outpatient (CLI) | payer MEDICAID ==
[~2019-10-17] VITALS: Ht 167.7 cm; Wt 126.6 kg
[~2019-10-17 14:46] MED LIST changes: +ONDA4TAB11 PO
[2019-10-17 14:55] VITALS: BP 138/83
[2019-10-17] MEDS ORDERED: MEGE40TA PO (15:01)
[2019-10-17 15:27] LABS: BASOPHILS % (AUTO) 0 % (0-10); EOSINOPHILS # (AUTO) 0.1 10^3/uL (0.0-0.3); EOSINOPHILS % (AUTO) 1 % (0-10); HEMATOCRIT 41 % (35-52); LYMPHOCYTES # (AUTO) 1.7 X 10^3 (1.0-4.0); LYMPHOCYTES % (AUTO) 35 % (12-44); MEAN CORPUSCULAR HEMOGLOBIN 30 PG (25-34); MEAN CORPUSCULAR HGB CONC 32 G/DL (32-36); MEAN CORPUSCULAR VOLUME 94 FL (80-99); MEAN PLATELET VOLUME 12.2 FL (7.4-10.4); MONOCYTES # (AUTO) 0.5 X 10^3 (0.0-1.0); MONOCYTES % (AUTO) 9 % (0-12); NEUTROPHILS # (AUTO) 2.7 X 10^3 (1.8-7.8); NEUTROPHILS % (AUTO) 54 % (42-75); PLATELET COUNT 227 10^3/uL (130-400); RED CELL DISTRIBUTION WIDTH 13.3 % (10.0-14.5); WHITE BLOOD COUNT 4.9 10^3/uL (4.3-11.0)
[2019-10-17 15:27] LABS: BILIRUBIN,URINE NEGATIVE (NEGATIVE); CLARITY,URINE CLEAR; COLOR,URINE YELLOW; GLUCOSE, URINE (UA) NEGATIVE (NEGATIVE); KETONES,URINE NEGATIVE (NEGATIVE); LEUKOCYTE ESTERASE ,URINE NEGATIVE (NEGATIVE); NITRITE,URINE NEGATIVE (NEGATIVE); PH,URINE 5.5 (5-9); PROTEIN,URINE TRACE (NEGATIVE)
[2019-10-17 15:33] LABS: BACTERIA,URINE NEGATIVE /HPF; RBC,URINE RARE /HPF; SQUAMOUS EPITHELIAL CELL,UR 0-2 /HPF; WBC,URINE RARE /HPF
[2019-10-18] MEDS ORDERED: SOLI10TA7 PO (09:50)
[2019-10-18] MEDS ORDERED: IBUP-1773 PO (13:46)
== END 2019-10-17 15:20 | disposition home or self-care (01) ==
LOC: PREOP 14:46
PROVIDERS: ATTEND Obstetrics & Gynecology
DX: Z01.812 Encounter for preprocedural laboratory examination (principal); N85.00 Endometrial hyperplasia, unspecified; N92.0 Excessive and frequent menstruation with regular cycle
CPT/HCPCS: 36415; 81000; 85025; 86850; 86900; 86901; 87081

== ENCOUNTER 2020-07-15 05:40 | Outpatient (CLI) | payer MEDICAID ==
[~2020-07-15] VITALS: Ht 167 cm; Wt 113.6 kg
[~2020-07-15 05:40] MED LIST changes: +ACET-93 PO; +FERR-84 PO; +MAGN400O7 PO; -MEGE40TA PO; +MEGE40TA5 PO; +OXC5T PO; +SENN-181 PO; +SOLI10TA7 PO
== END 2020-07-15 13:09 | disposition home or self-care (01) ==
LOC: PREOP 05:40
PROVIDERS: ATTEND Surgery
DX: Z01.818 Encounter for other preprocedural examination (principal)

== ENCOUNTER 2020-07-20 05:46 | Outpatient (CLI) | payer MEDICAID ==
[~2020-07-20] VITALS: Ht 167 cm; Wt 113.6 kg
[2020-07-22] MEDS ORDERED: HYDR-4226 PO (09:52)
== END 2020-07-20 11:04 | disposition home or self-care (01) ==
LOC: PREOP 05:46
PROVIDERS: ATTEND Surgery
DX: Z01.818 Encounter for other preprocedural examination (principal)

== ENCOUNTER 2020-07-20 10:26 | Day surgery (SDC) | payer MEDICAID ==
[~2020-07-20] VITALS: Ht 167 cm; Wt 113.6 kg
[2020-07-20] VITALS (7 sets, daily range): BP systolic 102–124; BP diastolic 55–86
[~2020-07-20 10:26] MED LIST changes: -PANT40TA3 PO; +PANT40TA52 PO
[2020-07-20] MEDS ORDERED: LACTATED RINGERS 1,000 ML IV ONE (10:27)
[2020-07-20] MEDS ORDERED: PROPOFOL INJECTION 50 ML IV ONE (10:36)
[2020-07-20] MEDS ORDERED: MIDAZOLAM 2 MG/2 ML (VERSED) VIAL ONE (10:36)
[2020-07-20] MEDS ORDERED: LACTATED RINGERS 1,000 ML IV STA (10:37)
--- NOTE | 2020-07-20 10:42 | Progress Note-Pre Operative ---
Pre-Operative Progress Note H&P Reviewed The H&P was reviewed, patient examined and no changes noted. Time Seen by Provider: 10:38 Date H&P Reviewed: Jul 20, 2020 Time H&P Reviewed: 10:38 Pre-Operative Diagnosis: Screening colonoscopy GALDINO SERRANO DO Jul 20, 2020 10:42
--- NOTE | 2020-07-20 11:13 | Progress Note-Post Operative ---
Post-Operative Progess Note Surgeon (s)/Digital Marketing Assistant (s) Surgeon GALDINO SERRANO DO Digital Marketing Assistant: MARCY King Pre-Operative Diagnosis Screening colonoscopy Post-Operative Diagnosis polyp int hem poor prep Procedure & Operative Findings Date of Procedure 07/20/20 Procedure Performed/Findings colon with snare Anesthesia Type IV sedation by [employer] Estimated Blood Loss Estimated blood loss (mL): scant Specimens/Packing Specimens Removed desc colon polyp GALDINO SERRANO DO Jul 20, 2020 11:13
--- NOTE | 2020-07-20 11:14 | Endoscopy Discharge Instruct ---
Endo Procedure/Findings Findings 1.: Polyp 2.: Internal Hemorrhoids 3.: Other Findings (poor prep) Discharge Instructions - Activity: You might feel a little sleepy until tomorrow. This is due to the medicine you received to relax you. Until tomorrow, you should: NOT drive a car, operate machinery or power tools. NOT drink any alcoholic beverages. NOT make any important decisions or sign importortant papers. Do not return to work until tomorrow, unless otherwise instructed. Resume previous activities tomorrow. Diet: Start by taking liquids. If you tolerate liquids, advance to solid food. 1.: Colonoscopy in 1 year Notify Physician - If you experience excessive bleeding, unusual abdominal pain, fever, or chest pain, contact your doctor immediately. GALDINO SERRANO DO Jul 20, 2020 11:14
--- NOTE | 2020-07-20 12:40 | Anesthesia-General Post-Op ---
MAC Patient Condition Mental Status/LOC: Same as Preop Cardiovascular: Satisfactory Nausea/Vomiting: Absent Respiratory: Satisfactory Pain: Controlled Complications: Absent Post Op Complications Complications None Follow Up Care/Instructions Patient Instructions None needed. Anesthesiology Discharge Order Discharge Order Patient is doing well, no complaints, stable vital signs, no apparent adverse anesthesia problems. No complications reported per nursing. SOLA CASTELLON CRNA Jul 20, 2020 12:40
--- NOTE | 2020-07-21 04:45 | OPERATIVE REPORT ---
DATE OF SERVICE: 07/20/2020 PREOPERATIVE DIAGNOSIS: Screening colonoscopy. POSTOPERATIVE DIAGNOSES: Colon polyp, internal hemorrhoids, poor prep. PROCEDURE: Colonoscopy with snare polypectomy. SURGEON: Ricardo Zeng DO HISTOTECHNOLOGIST SUPERVISOR: Eulalia Gaytan, MS3. SPECIMEN: Polyp from the descending colon. BLOOD LOSS: Scant. FLUIDS: Per anesthesia. POSTOPERATIVE CONDITION: Stable. INDICATION FOR PROCEDURE: The patient is a 64-year-old female who has never had a colonoscopy before, needs one for screening. FINDINGS: The patient unfortunately had a very poor prep, lot of retained fecal material, but did find a polyp in the descending colon, which we snared. She also had some internal hemorrhoids. PROCEDURE NOTE: After informed consent was obtained, the patient was brought to the endoscopy suite, placed in bed in left lateral decubitus position. She was administered IV sedation by the FARMWORKER MACHINE who then monitored her vitals the entire time, heart rate, blood pressure and pulse ox. Inserted the scope, on the way in, noted a lot of retained fecal material, took pictures, able to push all the way through into the cecum, took a picture of appendiceal orifice, noted the ileocecal valve and then slowly withdrew the scope insufflating to look circumferentially at the murphy looking at the ascending colon up to the hepatic flexure, then down the transverse colon. Throughout here had a lot of retained fecal material, could not brushed it all off of the wall or flushed it off with saline. She also had a large retained vegetable matter, continued to the splenic flexure and then down the descending colon. In the descending colon, saw small polyp, did here snare polypectomy of this and then continued down in the sigmoid and finally into the rectum, retroflexed in rectal vault, saw some internal hemorrhoids. I then removed the scope. The patient tolerated the procedure, she recovered in endoscopy suite. Job ID: [id number] DocumentID: [id number] Dictated Date: 07/20/2020 18:33:34 Re Etcher Date: 07/21/2020 04:44:44 Dictated By: RICARDO ZENG DO
== END 2020-07-20 12:00 | disposition home or self-care (01) ==
LOC: ENDO 10:26
PROVIDERS: ATTEND Surgery
DX: Z12.11 Encounter for screening for malignant neoplasm of colon (principal); K63.5 Polyp of colon; K64.8 Other hemorrhoids; K43.2 Incisional hernia without obstruction or gangrene; I10 Essential (primary) hypertension; J44.9 Chronic obstructive pulmonary disease, unspecified; F32.9 Major depressive disorder, single episode, unspecified; F41.9 Anxiety disorder, unspecified; K21.9 Gastro-esophageal reflux disease without esophagitis; E66.01 Morbid (severe) obesity due to excess calories; Z68.41 Body mass index [BMI] 40.0-44.9, adult; Z87.891 Personal history of nicotine dependence; Z79.899 Other long term (current) drug therapy
CPT/HCPCS: 88305

== ENCOUNTER 2020-07-22 07:13 | Day surgery (SDC) | payer MEDICAID ==
[2020-07-22] VITALS (12 sets, daily range): BP systolic 96–168; BP diastolic 55–98
[~2020-07-22] VITALS: Ht 167 cm; Wt 113.6 kg
[2020-07-22] MEDS ORDERED: ROCURONIUM 10 MG/ML 5 ML SYRINGE IV ONE (07:15)
[2020-07-22] MEDS ORDERED: MIDAZOLAM 2 MG/2 ML (VERSED) VIAL ONE (07:15)
[2020-07-22] MEDS ORDERED: ONDANSETRON 4 MG/2 ML (SDV) Z0FRAN ONE (07:15)
[2020-07-22] MEDS ORDERED: LIDOCAINE PF 2% 5 ML (XYLOCAINE) VIAL ONE (07:15)
[2020-07-22] MEDS ORDERED: proPOfol 200 MG/20 ML (DIPRIVAN) VIAL IV ONE (07:15)
[2020-07-22] MEDS ORDERED: GLYCOPYRROLATE 0.2 MG/ML (ROBINUL) 2 ML VIAL ONE (07:15)
[2020-07-22] MEDS ORDERED: NEOSTIGMINE 3 MG/3 ML VIAL ONE (07:15)
[2020-07-22] MEDS ORDERED: SEVOFLURANE (ULTANE) 15 ML INHAL SOLN ONE ×2 (07:15→09:07)
[2020-07-22] MEDS ORDERED: fentaNYL INJECTION 100 MCG/2 ML AMP ONE (07:15)
[2020-07-22] MEDS ORDERED: BUP/EPI 0.25% 1:200,000 (MARCAINE) 30 ML VIAL ONE (07:22)
[2020-07-22] MEDS ORDERED: ceFAZolin 2 GM IV Premixed 50 ML IV ONE (07:30)
[2020-07-22] MEDS ORDERED: CATHETER FLUSH 10 ML SYR IV PRN (07:45)
[2020-07-22] MEDS: LACTATED RINGERS 1,000 ML IV PRN ×2 (07:56→09:33)
--- NOTE | 2020-07-22 07:57 | Progress Note-Pre Operative ---
Pre-Operative Progress Note H&P Reviewed The H&P was reviewed, patient examined and no changes noted. Time Seen by Provider: 07:55 Date H&P Reviewed: Jul 22, 2020 Time H&P Reviewed: 07:54 Pre-Operative Diagnosis: Incarcerated Incisional/Ventral hernia GALDINO SERRANO DO Jul 22, 2020 07:57
[2020-07-22] MEDS ORDERED: HYDROmorphone 2 MG/ML VIAL (DILAUDID) IV ONE (08:15)
[2020-07-22] MEDS ORDERED: ONDANSETRON 4 MG/2 ML (SDV) Z0FRAN IVP PRN (08:15)
[2020-07-22] MEDS ORDERED: morphine INJ 10 MG/ML 1ML (SYR OR VIAL) IVP ONE (08:15)
[2020-07-22] MEDS ORDERED: HYDROmorphone 2 MG/ML VIAL (DILAUDID) ONE (09:06)
--- NOTE | 2020-07-22 09:51 | Progress Note-Post Operative ---
Post-Operative Progess Note Surgeon (s)/Time Broker (s) Surgeon GALDINO SERRANO DO Time Broker: Nilda Pre-Operative Diagnosis Incarcerated Incisional/Ventral hernia Post-Operative Diagnosis Same Procedure & Operative Findings Date of Procedure 07/22/20 Procedure Performed/Findings PROCEDURE: Laparoscopic [Incisional/Ventral] hernia repair with mesh. COMPLICATIONS: None. INDICATIONS: The patient is a 64, female with an [incarcerated incisional/ventral] hernia, which has continued to increase in size and cause discomfort. The patient was explained the risk and benefits of the procedure and wished to proceed with the procedure. Consent was signed on the chart. DESCRIPTION OF PROCEDURE: The patient was taken into the operating suite, prepped and draped in sterile fashion. Surgical pause was performed. Local anesthetic was infiltrated in left upper quadrant. A #11 blade scalpel was used to make a small skin incision. Cautery was used to dissect down to the fascia, which was then scored and divided the muscle, went through the posterior sheath and a balloon trocar was inserted into the abdomen. The abdomen was then insufflated. Pt had a lot of adhesions and some intestine in hernia defect. Hernia defect measured appx 9cm long. A 5 mm trocar was placed in the left lower quadrant and then adhesions were taken down with Ligasure, finally able to see the right side and then a 5 mm trocar was placed in right lower quadrant. [The defect was so large that we elected to open the abdomen and close fascia with a #1 looped PDS suture. Just prior to closing the mesh was placed into the abdomen; [id number] mesh. Then the balloon was inflated on the mesh. Circumferential tacks were placed with a SecureStrap Tacker. The balloon was then removed and inner crown was created as well; 2 tackers were needed. The mesh was tacked with pressure being decreased to 10mm of mercury. The 12 mm fascial defect was then closed using 0 Vicryl figure of eight. The abdomen was then desufflated,the trocars were removed. The skin was then closed using 4-0 Monocryl in a running subcuticular fashion. The abdomen was washed and dried and Skin Affix was placed over the incisions. The patient tolerated procedure well without any complications. She was taken to recovery room in stable condition. Dr. Munguia assisted on this case helping make incisions, close incisions, identi fy anatomy and hold anatomy out of the way. Anesthesia Type GET Estimated Blood Loss Estimated blood loss (mL): less than 20ml Specimens/Packing Specimens Removed hernia sac GALDINO SERRANO DO Jul 22, 2020 09:51
[2020-07-22] MEDS ORDERED: HYDR-4226 PO ×2 (09:52)
--- NOTE | 2020-07-22 09:53 | Discharge Inst-Surgical ---
Discharge Inst-Surgical Depart Medication/Instructions New, Converted or Re-Newed RX: RX Given to Pt/Family Patient Instructions Follow up Appt: Make appointment for 1 week. [phone] Instructions: No lifting greater than 20 pounds. No strenuous activity. May shower in 24 hours, no tub bath or soaking. Use incentive spirometer at home as directed. No Smoking Skin/Wound Care: May remove bandages in am. You need to leave the Dermabond on incision it will fall off on it's own. Symptoms to Report: Appetite Changes, Extremity Discoloration, Numbness/Tingling, Swelling Increased, Bleeding Excessive, Eyesight Changes, Pain Increased, Urine Color Change, Constipation(Persistent), Fever over 101 degree F, Pain/Pressure in chest, Urinating Difficulty, Cough Up/Vomit Blood, Heart Beat Irreg/Pounding, Pain/Pressure in jaw, Cramps in feet or legs, Lightheadedness, Pain/Pressure in shoulder, Diarrhea(Persistent), Memory Changes Suddenly, Questions/Concerns, Weight gain consecutive days, Dizziness/Fainting, Nausea/Vomiting, Shortness of Breath, Weight gain over 2 pounds If questions or concerns contact your physician Or seek help at emergency department. Activity Activity as Tolerated: Yes Activity Instructions: Avoid Stress to Incision Driving Instructions: No Driving/Refer to Dr. Cotter Discharge Diet: No Restrictions Diet After 24 Hours: Clear Liquid if Nauseous If Any Problems/Questions/Issu: Contact Your Physician, Go to Emergency Room Skin/Wound Care Infection Signs and Symptoms: Increased Redness, Foul Odor of Wound, Increased Drainage, Skin Itchy or Has a Rash, Increased Swelling, Temperature Above 101 F Wound Care Comment: Heating pad to shoulder or neck tonight for pain. Bathing Instructions: Shower Stitches/[place]/Dermabond Dis: Care of [place] Ice Pack: Ice On and Off Site (as needed for pain at incisions) GALDINO SERRANO DO Jul 22, 2020 09:53
--- NOTE | 2020-07-22 10:25 | NUR ---
TO AMB SURG FROM PAR PER CART. AWAKE, DENIES PAIN. X2 LARGE AND X1 SMALL BANDAIDS D/I TO LAP ABD SURGICAL SITES, ISLAND DRESSING INTACT TO MID ABDOMINAL, SUPRA UMBILICAL SURGICAL SITE. SCANT AMOUNT OF BLOODY DRAINAGE ON ISLAND DRESSING, WAS MARKED IN PAR, VERY MINIMAL AMOUNT OF INCREASE IN AREA OF DRAINAGE AT LOWER END OF DRESSING. AREA MARKED. ICE PACK ON. PO FLUIDS PROVIDED.
--- NOTE | 2020-07-22 10:45 | NUR ---
HAS BEEN RESTING QUIETLY IN BED, SAO2 90%. O2 STARTED AT 2L PER NC.
[2020-07-22] MEDS ORDERED: HYDROcodone/APAP 5 MG/325 MG (LORTAB) TAB PO ONE (11:00)
[2020-07-22] MEDS ORDERED: HYDROcodone/APAP 5 MG/325 MG (LORTAB) TAB ONE (11:00)
--- NOTE | 2020-07-22 11:12 | NUR ---
AWAKE, RATED MID ABD SURGICAL SITE PAIN 5. NO CHANGE IN SITE ASSESSMENT. HAS HAD CRACKERS. LORTAB 5/325 MG, ONE TABLET, GIVEN PO.
--- NOTE | 2020-07-22 11:45 | NUR ---
RESTING QUIETLY IN BED, EYES CLOSED.
--- NOTE | 2020-07-22 13:15 | NUR ---
NO CHANGE IN SURGICAL SITE ASSESSMENTS. UP WITH ASSIST TO BR, GAIT STEADY. VOIDS WITHOUT PROBLEM AND ASSISTED BACK TO ROOM. INSTRUCTED ON INCENTIVE SPIROMETRY USE. PAIN RATED 2 WITH AMB, NONE AT REST. ALERT. SAO2 95-96% ON ROOM AIR. STATES SHE IS READY FOR DISMISSAL.
--- NOTE | 2020-07-22 14:10 | Anesthesia-General Post-Op ---
General Patient Condition Mental Status/LOC: Same as Preop Cardiovascular: Satisfactory Nausea/Vomiting: Absent Respiratory: Satisfactory Pain: Controlled Complications: Absent Post Op Complications Complications None Follow Up Care/Instructions Patient Instructions None needed. Anesthesia/Patient Condition Patient Condition Patient is doing well, no complaints, stable vital signs, no apparent adverse anesthesia problems. No complications reported per nursing. SHALONDA BRAXTON DO Jul 22, 2020 14:10
== END 2020-07-22 13:30 | disposition home or self-care (01) ==
LOC: SDC 07:13
PROVIDERS: ATTEND Surgery
DX: K43.0 Incisional hernia with obstruction, without gangrene (principal); Z11.2 Encounter for screening for other bacterial diseases; Z87.891 Personal history of nicotine dependence; I10 Essential (primary) hypertension; J44.9 Chronic obstructive pulmonary disease, unspecified; F32.9 Major depressive disorder, single episode, unspecified; F41.9 Anxiety disorder, unspecified; K21.9 Gastro-esophageal reflux disease without esophagitis; E66.01 Morbid (severe) obesity due to excess calories; Z68.41 Body mass index [BMI] 40.0-44.9, adult; Z79.899 Other long term (current) drug therapy
CPT/HCPCS: 49655; 87081; C1781

== ENCOUNTER → 2020-09-01 | Outpatient (CLI) | payer MEDICAID ==
[~2020-09-01] MED LIST changes: +AMLO-251 PO; -AMLO10TA7 PO; +HYDR-4226 PO
--- NOTE | 2020-09-01 15:01 | Diagnostic Imaging Report ---
INDICATION: Routine screening. COMPARISON: 10/20/2017 and 01/12/2012. TECHNIQUE: 2D and 3D bilateral screening mammography was performed with CAD. FINDINGS: Scattered fibroglandular densities are identified bilaterally. Nodular densities in both breasts appear stable. There are benign calcifications in both breasts. No spiculated mass or malignant appearing microcalcifications are identified. The axillae are unremarkable. IMPRESSION: No mammographic features suspicious for malignancy are identified. ACR BI-RADS Category 2: Benign findings. Result letter will be mailed to the patient. Note: At least 10% of breast cancer is not imaged by mammography. Dictated by: Dictated on workstation # [id number]
== END ==
LOC: RAD 10:30
PROVIDERS: ATTEND Nurse Practitioner Community Health
DX: Z12.31 Encounter for screening mammogram for malignant neoplasm of breast (principal)
CPT/HCPCS: 77063; 77067